=== PATIENT | male | born 1960 | race Caucasian/White ===

== ENCOUNTER 2016-05-01 11:43 | Inpatient (IN) | payer OTHER ==
[~2016-05-01] VITALS: Ht 180.3 cm; Wt 115.0 kg
[~2016-05-01 11:43] MED LIST: ALBUAER19 INH; ASPEC81 PO; BUPR-83 PO; BUSP30TA2 PO; CLON1TAB3 PO; CLR10 PO; DIVA250T PO; DIVA500T3 PO; DIVA500T59 PO; FLUT1SPR12 NAE; FRS/40 PO; GDN/80 PO; LEVO175T3 PO; LISI-461 PO; LOXA50CA PO; MAGN400T6 PO; MONT1TAB5 PO; OMEP20CA9 PO; POTA20TA16 PO; PRAV20TA PO; PSYL1POW4 PO; ZIPR1CAP4 PO; ZNTT/150 PO; [UNRECOGNIZED DRUG - CODE] PO
[2016-05-01] MEDS ORDERED: NALOXONE HCL 0.4 MG/1 ML VIAL/CARP ONE (12:17)
[2016-05-01] MEDS ORDERED: NALOXONE HCL 0.4 MG/1 ML VIAL/CARP IV STA (12:17)
--- NOTE | 2016-05-01 12:20 | EMERGENCY ROOM VISIT NOTE ---
History Report prepared by Beny: Fazal Griggs Under the Supervision of: Dr. Yohannes Contreras D.O. First contact with patient: 11:52 Chief Complaint: SWELLING TO EXTREMITY Stated Complaint: SWELLING TO LEFT FOOT History of Present Illness The patient is a 56 year old male who presents to the Emergency Room with complaints of persistent slurred speech that started prior to arrival today. Per the nursing staff, the patient was at [address] for a follow up for his pneumonia that he was diagnosed with in the hospital recently. The patient then came to triage from [address]. He has swelling to his legs and feet that the patient claims is normal. The reason the patient was told to come here was because the patient is really white and has slurred speech. He was slumped over when coming back to the ED room in a wheelchair, per the nursing staff. Per the patient, he has not been taking any new medications. He denies any chest pain, shortness of breath, or headache. The nursing staff denies that the patient has any fevers. The patient says he has no heart problems. Source of History: patient, nursing staff Onset: Prior to arrival today Position: other (global - slurred speech) Timing: other (persistent) Associated Symptoms: No SOB, No chest pain, No fevers, No headache Note: White skin. Chronic swelling to legs and feet. Review of Systems See HPI for pertinent positives & negatives. A total of 10 systems reviewed and were otherwise negative. Past Medical & Surgical Medical Problems: (1) Altered mental status (2) Asthma (3) Benign hypertension (4) Bilateral lower extremity edema (5) Bipolar disorder (6) Community acquired pneumonia (7) Diabetes (8) Gastroesophageal reflux disease (9) Hypoglycemia (10) Hyponatremia (11) Hypothyroidism (12) Hypoxia (13) Insomnia (14) Knee pain (15) Lymphedema of both lower extremities (16) Pneumonia (17) Pneumonia (18) Rib pain on left side (19) Schizophrenia (20) Sepsis (21) Sepsis (22) SOB (shortness of breath) (23) Soft tissue disorder (24) Unable to void (25) Weakness Family History Diabetes mellitus Gallbladder disease Hypertension Social History Smoking Status: Never Smoker Alcohol Use: none Drug Use: none Marital Status: single Housing Status: lives alone Occupation Status: unemployed Current/Historical Medications Scheduled Aspirin (Aspirin EC Low Dose), 81 MG PO DAILY Bupropion Hcl (Bupropion Hcl Xl), 1 TAB PO QAM Buspirone Hcl (Buspirone Hcl), 30 MG PO BID Clonazepam (Klonopin), 1 MG PO QDL Clonazepam (Klonopin), 2 TAB PO HS Divalproex Sodium (Depakote Er), 250 MG PO HS Divalproex Sodium (Depakote Er), 2,000 MG PO UD Divalproex Sodium (Depakote Er), 1,500 MG PO UD Divalproex Sodium (Divalproex Sodium ER), 1,750 MG PO HS Furosemide (Lasix), 40 MG PO DAILY Levothyroxine Sodium (Levothyroxine Sodium), 175 MCG PO DAILY Lisinopril (Zestril), 10 MG PO DAILY Loratadine (Claritin), 10 MG PO DAILY Loxapine Succinate (Loxapine Succinate), 150 MG PO HS Magnesium Oxide (Mag-Ox), 400 MG PO DAILY Montelukast Sodium (Montelukast Sodium), 10 MG PO HS Omeprazole (Prilosec), 20 MG PO DAILY Potassium Ext Rel (Klor-Con), 40 MEQ PO DAILY Pravastatin (Pravachol ), 20 MG PO HS Ranitidine (Zantac), 150 MG PO BID Ziprasidone Hcl (Geodon), 80 MG PO QAM Ziprasidone Hcl (Geodon), 160 MG PO HS Scheduled PRN Albuterol Inhaler (Ventolin Inhaler), 2 PUFFS INH QID PRN for asthma Fluticasone Propionate (Nasal) (Flonase Allergy Relief ), NA DAILY PRN for Nasal Congestion Polyethylene Glycol 3350 (Miralax), 17 GM PO DAILY PRN for Constipation Allergies Coded Allergies: No Known Allergies (Verified , 05/01/16) Physical Exam Vital Signs Date Time Temp Pulse Resp B/P Pulse Ox O2 Delivery O2 Flow Rate FiO2 05/01/16 15:30 97 25 121/77 97 Nasal Cannula 5.0 05/01/16 14:30 96 23 100 Nasal Cannula 5.0 05/01/16 14:28 114/71 05/01/16 14:04 98 05/01/16 14:00 99 26 99 Non-Rebreather 10.0 05/01/16 13:59 108/76 1/3/17 13:00 95 18 140/87 100 Non-Rebreather 15.0 05/01/16 12:27 82 21 115/70 100 Non-Rebreather 15.0 05/01/16 12:22 81 14 121/81 100 Non-Rebreather 15.0 05/01/16 12:17 64 Non-Rebreather 15.0 05/01/16 12:11 Room Air 05/01/16 12:11 82 12 96/59 92 Room Air 05/01/16 11:47 37.0 93 18 124/68 89 Room Air Physical Exam GENERAL: Patient is listless but arouses to verbal stimuli. Falls asleep quickly when not being stimulated. EYES: Pupils were constricted but reactive bilaterally. EARS, NOSE, MOUTH AND THROAT: Mucous membranes are moist, perioral cyanosis noted. NECK: The neck is nontender and supple. RESPIRATORY: Shallow respirations bilaterally. No rales, rhonchi, or wheezing noted. CARDIOVASCULAR: Regular rate and rhythm noted there no murmurs rubs or gallops normal S1 normal S2 GASTROINTESTINAL: The abdomen is soft. Bowel sounds are present in all quadrants. Abdomen is nontender MUSCULOSKELETAL/EXTREMITIES: There is no evidence of gross deformity full range of motion is noted in the hips and shoulders SKIN: Bilateral pedal edema up to knees. NEUROLOGIC: Patient is oriented to person, place, and time. Strength diminished but symmetric. Unable to hold either leg off of bed for greater than 5 seconds. Medical Decision & Procedures ER Provider Diagnostic Interpretation: X ray results and stated below per my interpretation and radiology interpretation. Other radiology results per my review and radiologist interpretation: HEAD CT NONCONTRAST CT DOSE: 1068.94 mGy.cm HISTORY: Change in mental status altered MS TECHNIQUE: Multiaxial CT images of the head were performed without the use of intravenous contrast. Comparison: None. Findings: The paranasal sinuses and mastoid air cells are clear. The calvarium and skull base are intact. The ventricles and sulci are within normal limits. There is no mass, hematoma, midline shift, or acute infarct. Impression: No acute intracranial abnormality. Electronically signed by: Jean Marie Prather M.D. 05/01/2016 1:36 PM CHEST ONE VIEW PORTABLE CLINICAL HISTORY: Sepsis dyspnea COMPARISON STUDY: 03/27/2016 FINDINGS: Progressive bilateral parenchymal infiltrative change. Tortuous thoracic aorta. Slight blunting left lateral costophrenic angle. IMPRESSION: Progressive bilateral parenchymal infiltrative change, possibly combined with underlying component of congestive failure Electronically signed by: Jean Marie Prather M.D. 05/01/2016 1:51 PM Laboratory Results 05/01/16 12:04 Red Blood Count 4.73, Mean Corpuscular Volume 91.3, Mean Corpuscular Hemoglobin 31.5, Mean Corpuscular Hemoglobin Concent 34.5, Mean Platelet Volume 8.5, Neutrophils (%) (Auto) 70.4, Lymphocytes (%) (Auto) 24.6, Monocytes (%) (Auto) 3.7, Eosinophils (%) (Auto) 1.0, Basophils (%) (Auto) 0.1, Neutrophils # (Auto) 6.08, Lymphocytes # (Auto) 2.13, Monocytes # (Auto) 0.32, Eosinophils # (Auto) 0.09, Basophils # (Auto) 0.01 05/01/16 12:30 Test 05/01/16 12:04 05/01/16 12:25 05/01/16 12:30 05/01/16 12:35 White Blood Count 8.65 K/uL (4.8-10.8) Red Blood Count 4.73 M/uL (4.7-6.1) Hemoglobin 14.9 g/dL (14.0-18.0) Hematocrit 43.2 % (42-52) Mean Corpuscular Volume 91.3 fL (80-100) Mean Corpuscular Hemoglobin 31.5 pg (25-34) Mean Corpuscular Hemoglobin Concent 34.5 g/dl (32-36) Platelet Count 164 K/uL (130-400) Mean Platelet Volume 8.5 fL (7.4-10.4) Neutrophils (%) (Auto) 70.4 % Lymphocytes (%) (Auto) 24.6 % Monocytes (%) (Auto) 3.7 % Eosinophils (%) (Auto) 1.0 % Basophils (%) (Auto) 0.1 % Neutrophils # (Auto) 6.08 K/uL (1.4-6.5) Lymphocytes # (Auto) 2.13 K/uL (1.2-3.4) Monocytes # (Auto) 0.32 K/uL (0.11-0.59) Eosinophils # (Auto) 0.09 K/uL (0-0.5) Basophils # (Auto) 0.01 K/uL (0-0.2) RDW Standard Deviation 44.0 fL (36.4-46.3) RDW Coefficient of Variation 13.2 % (11.5-14.5) Immature Granulocyte % (Auto) 0.2 % Immature Granulocyte # (Auto) 0.02 K/uL (0.00-0.02) Erythrocyte Sedimentation Rate 2 mm/hr (0-14) Prothrombin Time 10.7 SECONDS (9.0-12.0) Prothromb Time International Ratio 1.0 (0.9-1.1) Activated Partial Thromboplast Time 27.8 SECONDS (21.0-31.0) Partial Thromboplastin Ratio 1.1 D-Dimer 290 ug/L FEU (0-500) Salicylates Level < 1.7 mg/dl (2.8-20) Acetaminophen Level < 2 ug/ml (10-30) Valproic Acid (Depakene) Level 85 mcg/ml (50-100) Bedside Glucose 89 mg/dl (70-99) Estimated GFR () 69.7 Estimated GFR (Non- 60.1 BUN/Creatinine Ratio 11.2 (10-20) Calcium Level 9.2 mg/dl (8.5-10.1) Phosphorus Level 3.5 mg/dl (2.5-4.9) Magnesium Level 2.3 mg/dl (1.8-2.4) Total Bilirubin 0.3 mg/dl (0.2-1) Aspartate Amino Transf (AST/SGOT) 32 U/L (15-37) Alanine Aminotransferase (ALT/SGPT) 22 U/L (12-78) Alkaline Phosphatase 98 U/L (45-117) Ammonia 26.0 umol/L (11-32) Total Creatine Kinase 409 U/L (39-308) Creatine Kinase MB 18.6 ng/ml (0.5-3.6) Creatine Kinase MB Ratio 4.5 (0-3.0) Troponin I < 0.015 ng/ml (0-0.045) C-Reactive Protein < 0.29 mg/dl (0-0.29) Pro-B-Type Natriuretic Peptide 80 pg/ml (0-900) Total Protein 7.5 gm/dl (6.4-8.2) Albumin 4.1 gm/dl (3.4-5.0) Globulin 3.4 gm/dl (2.5-4.0) Albumin/Globulin Ratio 1.2 (0.9-2) Lipase 143 U/L (73-393) Thyroid Stimulating Hormone (TSH) 8.470 uIu/ml (0.300-4.500) Free Thyroxine 1.14 ng/dl (0.80-1.60) Bedside Lactic Acid Venous 0.86 mmol/L (0.90-1.70) Test 05/01/16 12:39 05/01/16 13:20 05/01/16 15:55 Bedside Hemoglobin 17.3 g/dl (14.0-18.0) Bedside Hematocrit 51 % (42-52) Bedside Sodium 133 mEq/L (135-144) Bedside Potassium 3.9 mEq/L (3.3-5.0) Bedside Chloride 93 mEq/L (101-112) Bedside Total CO2 26 mEq/l (24-31) Anion Gap 19.0 mmol/L (16-25) Bedside Blood Urea Nitrogen 16 mg/dl (7-18) Bedside Creatinine 1.2 mg/dl (0.6-1.3) Bedside Glucose (other) 84 mg/dl (70-99) Bedside Ionized Calcium (Raj) 1.20 mmol/l (1.12-1.32) Arterial Blood pH 7.38 (7.35-7.45) Arterial Blood Partial Pressure CO2 44 mmHg (35-46) Arterial Blood Partial Pressure O2 156 mm/Hg (80-95) Arterial Blood HCO3 26 mmol/L (19-24) Arterial Blood Oxygen Saturation 99.2 % (90-95) Arterial Blood Base Excess 0.1 mEq/L (-9-1.8) Arterial Blood Gas Delivery 15 LITERS Mario Test POSITIVE (POS) Ethyl Alcohol mg/dL < 3.0 mg/dl (0-3) Urine Color YELLOW Urine Appearance CLEAR (CLEAR) Urine pH 7.0 (4.5-7.5) Urine Specific [place] 1.008 (1.000-1.030) Urine Protein NEG (NEG) Urine Glucose (UA) NEG (NEG) Urine Ketones NEG (NEG) Urine Occult Blood NEG (NEG) Urine Nitrite NEG (NEG) Urine Bilirubin NEG (NEG) Urine Urobilinogen NEG (NEG) Urine Leukocyte Esterase NEG (NEG) Urine WBC (Auto) 0 /hpf (0-5) Urine RBC (Auto) 0-4 /hpf (0-4) Urine Hyaline Casts (Auto) 0 /lpf (0-5) Urine Epithelial Cells (Auto) 5-10 /lpf (0-5) Urine Bacteria (Auto) NEG (NEG) Urine Opiates Screen NEG (NEG) Urine Methadone, Qualitative NEG (NEG) Urine Barbiturates NEG (NEG) Urine Phencyclidine (PCP) Level NEG (NEG) Ur Amphetamine/Methamphetamine NEG (NEG) MDMA (Ecstasy) Screen POS (NEG) Urine Benzodiazepines Screen NEG (NEG) Urine Cocaine Metabolite NEG (NEG) Urine Marijuana (THC) NEG (NEG) Laboratory results per my review. Medications Administered Medications (Trade) Dose Ordered Sig/Daniel Route Start Time Stop Time Status Last Admin Dose Admin Naloxone HCl (Narcan Inj) 0.4 mg NOW STAT IV 05/01/16 12:17 05/01/16 12:18 DC 05/01/16 12:20 0.4 MG Levofloxacin (Levaquin / D5W) 750 mg NOW STAT IV 05/01/16 14:47 05/01/16 14:48 DC 05/01/16 15:44 750 MG ECG Indication: altered mental status Rate (beats per minute): 84 Rhythm: normal sinus Findings: no ectopy, other (no acute ST segment abnormalities, LVH noted by voltage criteria) Change: no significant change (from Sep 10 2004) ED Course 1209: The patient was evaluated in room C9. A complete history and physical examination were performed. 1217: Ordered Narcan Inj 0.4 mg IV. 1222: I reevaluated the patient and Narcan helped a bit. He started talking. 1447: Ordered Levaquin / D5W 750 mg IV. 1520: I reevaluated the patient and he is resting comfortably. The patient verbally expressed agreement and understanding of the treatment plan. The patient will be evaluated for further treatment. 1550: I discussed the patient with Dr. [place]ton - [facility] nozzleman - he will evaluate the patient for further treatment. Medical Decision Additional history obtained from nursing staff.. Differential diagnosis: Etiologies such as metabolic, infection, hypoglycemia, electrolyte abnormalities , cardiac sources, intracerebral event, toxicologic, neurologic, as well as others were entertained. The patient is a 56-year-old male who was sent to the emergency department from his primary care physician's office. The patient was found to have lower extreme swelling hypoxia and altered mental status. The patient was treated recently for pneumonia and appears to have pneumonia again. I'm unsure if this is the same infection but the patient's physical exam and vital signs would suggest this is an acute infection. The patient was treated with Narcan initially with only a minimal improvement in his symptoms. I discussed the patient's laboratory radiographic studies with him. He was also treated with IV antibiotics. He was reevaluated multiple times. His condition continued to improve. I discussed his case with the on-call [facility] hospitalist group. They have agreed to evaluate the patient in the emergency apartment for further management and disposition. Consults Time Called: 1540 Consulting Physician: Dr. Mahin RICHARD nozzleman Returned Call: 1550 I discussed the patient with Dr. Mahin RICHARD nozzleman - he will evaluate the patient for further treatment. Impression Primary Impression: Pneumonia Additional Impressions: Hypoxia, Altered mental status Scribe Attestation The scribe's documentation has been prepared under my direction and personally reviewed by me in its entirety. I confirm that the note above accurately reflects all work, treatment, procedures, and medical decision making performed by me. Departure Information Dispostion Being Evaluated By Hospitalist Referrals Yohannes Carrillo M.D. (PCP) Patient Instructions A Signature Page, My [facility]
[2016-05-01 12:24] LABS: BASO % 0.1 %; BASO ABS # 0.01 K/uL (0-0.2); COMPLETE YES; HEMATOCRIT 43.2 % (42-52); IG% 0.2 %; LYMPH % 24.6 %; LYMPH ABS # 2.13 K/uL (1.2-3.4); MEAN CELL VOLUME 91.3 fL (80-100); MEAN CORPUSCULAR HEMOGLOBIN 31.5 pg (25-34); MEAN CORPUSCULAR HGB CONC 34.5 g/dl (32-36); MEAN PLATELET VOLUME 8.5 fL (7.4-10.4); MONO % 3.7 %; NEUT % 70.4 %; PLATELET COUNT 164 K/uL (130-400); RED BLOOD COUNT 4.73 M/uL (4.7-6.1); WHITE BLOOD COUNT 8.65 K/uL (4.8-10.8)
[2016-05-01 12:38] LABS: PARTIAL THROMBOPLASTIN RATIO 1.1; PROTHROMBIN TIME (PATIENT) 10.7 SECONDS (9.0-12.0)
[2016-05-01 12:53] LABS: ACETAMINOPHEN < 2 ug/ml (10-30)
[2016-05-01 12:53] LABS: ISTAT CREATININE 1.2 mg/dl (0.6-1.3); ISTAT HEMOGLOBIN 17.3 g/dl (14.0-18.0); ISTAT IONIZED CALCIUM 1.2 mmol/l (1.12-1.32)
[2016-05-01 13:06] LABS: ALT/SGPT 22 U/L (12-78); BLOOD UREA NITROGEN 15 mg/dl (7-18); BUN/CREATININE RATIO 11.2 (10-20); C-REACTIVE PROTEIN < 0.29 mg/dl (0-0.29); CALCIUM 9.2 mg/dl (8.5-10.1); CARBON DIOXIDE 27 mmol/L (21-32); CHLORIDE 96 mmol/L (98-107); GLUCOSE 82 mg/dl (70-99); MAGNESIUM 2.3 mg/dl (1.8-2.4); POTASSIUM 3.9 mmol/L (3.5-5.1); SODIUM 133 mmol/L (136-145)
[2016-05-01 13:09] LABS: ALB/GLOB RATIO 1.2 (0.9-2); ALKALINE PHOSPHATASE 98 U/L (45-117); AST/SGOT 32 U/L (15-37); CKMB/CK RATIO 4.5 (0-3.0); PHOSPHORUS 3.5 mg/dl (2.5-4.9)
[2016-05-01 13:23] LABS: THYROID STIMULATING HORMONE 8.47 uIu/ml (0.300-4.500)
--- NOTE | 2016-05-01 13:38 | DIAGNOSTIC IMAGING REPORT ---
HEAD CT NONCONTRAST CT DOSE: 1068.94 mGy.cm HISTORY: Change in mental status altered MS TECHNIQUE: Multiaxial CT images of the head were performed without the use of intravenous contrast. Comparison: None. Findings: The paranasal sinuses and mastoid air cells are clear. The calvarium and skull base are intact. The ventricles and sulci are within normal limits. There is no mass, hematoma, midline shift, or acute infarct. Impression: No acute intracranial abnormality. Electronically signed by: Jean Marie Prather M.D. 05/01/2016 1:36 PM
[2016-05-01 13:42] LABS: ARTERIAL BLD GAS O2 SATURATION 99.2 % (90-95); ARTERIAL BLOOD GAS BASE EXCESS 0.1 mEq/L (-9-1.8); ARTERIAL BLOOD GAS HCO3 26 mmol/L (19-24); ARTERIAL BLOOD GAS PO2 156 mm/Hg (80-95); ARTERIAL BLOOD GAS pH 7.38 (7.35-7.45)
[2016-05-01 13:48] LABS: O2 ADMINISTRATION 15 LITERS
[2016-05-01 13:49] LABS: ALLEN TEST POSITIVE (POS)
--- NOTE | 2016-05-01 13:52 | DIAGNOSTIC IMAGING REPORT ---
CHEST ONE VIEW PORTABLE CLINICAL HISTORY: Sepsis dyspnea COMPARISON STUDY: 03/27/2016 FINDINGS: Progressive bilateral parenchymal infiltrative change. Tortuous thoracic aorta. Slight blunting left lateral costophrenic angle. IMPRESSION: Progressive bilateral parenchymal infiltrative change, possibly combined with underlying component of congestive failure Electronically signed by: Jean Marie Prather M.D. 05/01/2016 1:51 PM
[2016-05-01] MEDS ORDERED: LEVAQUIN 750MG / 150ML D5W IV STA (14:47)
[2016-05-01] MEDS ORDERED: POLY335019 PO (15:11)
[2016-05-01] MEDS: ALBUT/IPRATROP 3MG/0.5MG NEB 3 ML VIAL INH SCH ×2 (16:00→21:03)
[2016-05-01] MEDS ORDERED: KETOROLAC TROMETHAMINE 30 MG/ML VIAL IV. PRN (16:15)
[2016-05-01] MEDS ORDERED: FLUTICASONE PROPIONATE NA SPR 16 GM BTL PRN (16:15)
[2016-05-01] MEDS ORDERED: KETOROLAC TROMETHAMINE 15 MG/ML VIAL IV. PRN (16:15)
[2016-05-01] MEDS ORDERED: ACETAMINOPHEN 325 MG TAB PO PRN (16:15)
[2016-05-01 16:19] LABS: URINE APPEARANCE CLEAR (CLEAR); URINE BILIRUBIN NEG (NEG); URINE COLOR YELLOW; URINE NITRITE NEG (NEG); URINE SPECIFIC GRAVITY 1.008 (1.000-1.030); UROBILINOGEN NEG (NEG); ZZURINE CULT IF INDIC CATH NO
[2016-05-01 16:25] LABS: MANUAL MICROSCOPIC REQUIRED? NO; REVIEW REQ? NO
[2016-05-01 16:34] LABS: BENZODIAZEPINE, URINE NEG (NEG); COCAINE,URINE NEG (NEG); PHENCYCLIDINE, URINE NEG (NEG)
[2016-05-01] MEDS ORDERED: DEXTROSE 50% 50 ML SYR IV PRN (17:45)
[2016-05-01] MEDS ORDERED: GLUCAGON FOR INJ 1 MG VIAL SQ PRN (17:45)
[2016-05-01] MEDS ORDERED: GLUCOSE 10 TABS/TUBE PO PRN (17:45)
[2016-05-01] MEDS ORDERED: BUPR150T5 PO (17:49)
[2016-05-01] MEDS ORDERED: DPKSR500 PO (17:49)
[2016-05-01] MEDS: LOXAPINE~ORDER AWAITING ACTION SCH (18:00)
[2016-05-01 18:23] VITALS: BP 132/79; PULSE 102; TEMP 36.6; O2SAT 94
[2016-05-01 18:24] VITALS: O2SAT 94; BMI 34.4
[2016-05-01] MEDS ORDERED: LOXAPINE SUCCINATE 25 MG CAP PO SCH (21:00)
[2016-05-01] MEDS: INSULIN ASPART 100 UNITS/ML 3 ML PEN SC SCH (21:00)
--- NOTE | 2016-05-01 21:03 | History and Physical ---
History & Physical H&P dictated # [id number].
[2016-05-01 21:04] VITALS: PULSE 95; O2SAT 94
[2016-05-01] MEDS: BusPIRone 15 MG TAB PO SCH (21:41)
[2016-05-01] MEDS: DIVALPROEX 500 MG EXTENDED RELEASE TAB PO SCH (21:41)
[2016-05-01] MEDS: DIVALPROEX 250 MG EXTENDED REL TAB PO SCH (21:42)
[2016-05-01] MEDS: PRAVASTATIN SOD 20 MG TAB PO SCH (21:43)
[2016-05-01] MEDS: ZIPRASIDONE 80 MG CAP PO SCH (21:45)
[2016-05-01] MEDS: ENOXAPARIN 40 MG/0.4 ML SYR SQ SCH (21:46)
[2016-05-01] MEDS: MONTELUKAST SOD 10 MG TAB PO SCH (21:47)
[2016-05-01] MEDS: RANITIDINE HCL 150 MG TAB PO SCH (21:47)
--- NOTE | 2016-05-01 22:04 | HISTORY & PHYSICAL EXAMINATION ---
DATE OF ADMISSION: 05/01/2016 CHIEF COMPLAINT: Altered mental status. HISTORY OF PRESENT ILLNESS: This 56-year-old male patient actually came to the Emergency Department because he was seen in an outpatient office and felt that his chronic lymphedema in his lower extremities had worsened. While being seen at our Emergency Department he was exhibiting slurred speech and appeared pale, which appeared to be an alteration of his mental status. He was further evaluated and found to have pneumonia with hypoxemia and initial pulse ox of 89% on room air. PAST MEDICAL HISTORY: Significant for; asthma, bipolar disorder, type 2 diabetes mellitus, GERD, hyperlipidemia, hypertension, hypothyroidism, chronic bilateral lower extremity lymphedema, degenerative joint disease of the knees bilaterally and schizophrenia. PAST SURGICAL HISTORY: Include left knee ligament surgery at age 16. FAMILY HISTORY: Consistent with hypertension, gallbladder disease and diabetes. SOCIAL HISTORY: He never smoked. He does not use alcohol or illicit substances. He is single, lives independently, is unemployed, on disability. REVIEW OF SYSTEMS: A complete 10-system review was performed and all were negative except what I have placed in the HPI. CURRENT MEDICATIONS: Include; aspirin 81 mg daily, buspirone 30 mg b.i.d., Klonopin 1 mg as needed and 2 mg at bedtime, Depakote extended release 2000 mg when he awakens and 1750 mg when he goes to sleep, furosemide 40 mg daily, levothyroxine 175 mcg daily, lisinopril 10 mg daily, Claritin 10 mg daily, loxapine succinate 150 mg at bedtime, mag oxide 400 mg daily, montelukast sodium 10 mg at bedtime, Prilosec 20 mg daily, Klor-Con 40 mEq daily, Pravachol 20 mg at bedtime, Zantac 150 mg b.i.d., Geodon 80 mg in the morning and Geodon 160 mg at bedtime, albuterol inhaler 2 puffs q.i.d. p.r.n. asthma, Flonase nasal spray as needed and MiraLax as needed for constipation. ALLERGIES: He reports no known drug allergies. PHYSICAL EXAMINATION: VITAL SIGNS: Temperature is 37.0, pulse of 93, respirations 18, blood pressure 124/68. As I mentioned above, pulse ox was 89% on room air. GENERAL: The patient is a bit more arousable than what the exam reads in the ED note. He was able to stay awake and converse with me. HEENT: TMs were intact, no inflammation. Extraocular muscles were intact. Pupils are equal, round and reactive to light and accommodation. His mucous membranes were moist. Throat was clear. NECK: No JVD or lymphadenopathy. LUNGS: Show some rhonchi sounds bilaterally. No crackles. Mild expiratory wheezing. HEART: Regular, normal S1, S2, without murmurs, rubs or gallops. ABDOMEN: Soft, nontender, nondistended, positive bowel sounds. EXTREMITIES: No clubbing or cyanosis. He does have impressive lymphedema in his bilateral lower extremities, especially below the knees. NEUROLOGIC: Cranial nerves II-XII are grossly intact and nonfocal. SKIN: Warm and dry without rash. No signs of cellulitis. PSYCHIATRIC: The patient was pleasant and cooperative. IMAGING: CAT scan of the head showed no acute intracranial abnormality. Chest x-ray showed progressive bilateral parenchymal infiltrative change, possibly combined with underlying component of congestive failure. LABORATORY DATA: White count 8.65, hemoglobin 14.9, hematocrit 43.2, platelet count 164,000. Arterial blood gas showed a pH of 7.38, pCO2 of 44, PaO2 of 156 and that is why he was on 15 liters. Sodium 133, potassium 3.9, chloride 96, CO2 27, BUN 15, creatinine 1.3. TSH was elevated at 8.47. Lipase 143. His BNP was 80, lactic acid 0.86. Urinalysis was unremarkable. His urine drug screen was entirely negative except interestingly showed positive for MDMA Ecstasy; that seems very unlikely, there are confirmatory studies pending. Ethyl alcohol was less than 3.0. ASSESSMENT: Transient altered mental status with infiltrative change in bilateral lungs. We are going to treat him for pneumonia, but ask for an evaluation by pulmonology. In regards to his psychiatric diagnoses his home medications are continued. He is a diabetic, but refuses a diabetic diet, requests regular diet and in fact has not been treating that because his metformin had been held, apparently the last time that he was hospitalized, he had significant concerns of hypoglycemia; so he was just given an insulin sliding scale for any highs in order to accommodate the patient with a regular diet. He was treated with levofloxacin 750 mg IV q. 24. DVT prophylaxis in the form of Lovenox and SCDs. We will follow his laboratory data. Given quinolone and combination with Geodon, pharmacist and I discussed the possibility of prolongation of QT interval, so to evaluate this he is having an EKG performed on the day of admission and then one in the afternoon the following day to see if there has been any change. I do note that he was on the same antibiotic on a previous admission and did not have any issues.
[2016-05-01 23:10] VITALS: BP 125/85; PULSE 98; TEMP 36.6; O2SAT 96
[2016-05-02] VITALS (8 sets, daily range): BP systolic 112–125; BP diastolic 63–80; PULSE 67–112; TEMP 36.2–36.6; O2SAT 90–98; BMI 35.4
[2016-05-02] MEDS ORDERED: CLONAZEPAM 0.5 MG TAB PO STA (01:54)
[2016-05-02] MEDS: GLUCOSE 40% GEL 15 GM TUBE PO PRN (05:32)
[2016-05-02] MEDS: LEVOTHYROXINE 175 MCG TAB PO SCH (05:36)
[2016-05-02] MEDS ORDERED: PNEUMOCOCCAL POLYSACCHARIDES 25 MCG/0.5 ML VIAL/SYR IM. ONE (08:00)
[2016-05-02] MEDS: ALBUT/IPRATROP 3MG/0.5MG NEB 3 ML VIAL INH SCH ×4 (08:00→20:52)
[2016-05-02] MEDS: INSULIN ASPART 100 UNITS/ML 3 ML PEN SC SCH ×4 (08:00→21:00)
[2016-05-02] MEDS ORDERED: PNEUMOCOCCAL ADMINISTRATION CHARGE ONE (08:00)
[2016-05-02 08:02] LABS: BASO % 0.1 %; BASO ABS # 0.01 K/uL (0-0.2); COMPLETE YES; EOS % 0.4 %; HEMATOCRIT 39.2 % (42-52); IG% 0.3 %; LYMPH % 12.2 %; LYMPH ABS # 2.08 K/uL (1.2-3.4); MEAN CELL VOLUME 91.6 fL (80-100); MEAN CORPUSCULAR HEMOGLOBIN 31.3 pg (25-34); MEAN CORPUSCULAR HGB CONC 34.2 g/dl (32-36); MEAN PLATELET VOLUME 8.7 fL (7.4-10.4); PLATELET COUNT 151 K/uL (130-400); RED BLOOD COUNT 4.28 M/uL (4.7-6.1); WHITE BLOOD COUNT 17.08 K/uL (4.8-10.8)
[2016-05-02 08:33] LABS: BUN/CREATININE RATIO 8.8 (10-20); CREATININE 1.2 mg/dl (0.60-1.40); POTASSIUM 4.4 mmol/L (3.5-5.1)
[2016-05-02] MEDS: POTASSIUM CHLORIDE 20 MEQ TABCR PO SCH (09:17)
[2016-05-02] MEDS: RANITIDINE HCL 150 MG TAB PO SCH ×2 (09:17→21:14)
[2016-05-02] MEDS: BusPIRone 15 MG TAB PO SCH ×2 (09:17→21:15)
[2016-05-02] MEDS: ZIPRASIDONE 80 MG CAP PO SCH ×2 (09:17→21:14)
[2016-05-02] MEDS: PANTOprazole SOD 40 MG TAB PO SCH (09:17)
[2016-05-02] MEDS: LORATADINE 10 MG TAB PO SCH (09:17)
[2016-05-02] MEDS: ASPIRIN 81 MG ECTAB PO SCH (09:18)
[2016-05-02] MEDS: LISINOPRIL 10 MG TAB PO SCH (09:18)
[2016-05-02] MEDS: MAGNESIUM OXIDE 400 MG TAB PO SCH (09:18)
[2016-05-02] MEDS: FUROSEMIDE 40 MG TAB PO SCH (09:18)
[2016-05-02] MEDS: DIVALPROEX 500 MG EXTENDED RELEASE TAB PO SCH ×2 (09:18→21:15)
[2016-05-02] MEDS: BuPROPion XL 150 MG TABCR PO SCH (09:36)
--- NOTE | 2016-05-02 13:30 | Hospitalist Progress Note ---
Hospitalist Progress Note Date of Service May 02, 2016. Subjective Pt evaluation today including: conversation w/ patient, physical exam, chart review, lab review, review of studies, review of inpatient medication list Patient reports feeling, "GREAT" today. He declines having SOB, CP, nausea, diarrhea or F/C. He requests miralax as he takes at home for constipation. Also, he uses Clonazepam at bedtime to help with sleep. He already requests to be discharged tomorrow evening if he is medically stable. Additional Comments: A 10 system review was performed and all were negative. Positives were placed in the subjective section. Objective Vital Signs Date Time Temp Pulse Resp B/P Pulse Ox O2 Delivery O2 Flow Rate FiO2 05/02/16 11:12 90 16 94 Room Air 05/02/16 08:12 Room Air 05/02/16 08:00 97 16 95 Room Air 05/02/16 07:59 36.6 97 18 125/80 94 Room Air 05/02/16 07:53 36.6 67 16 112/67 93 2.0 05/02/16 00:17 Nasal Cannula 2.0 05/01/16 23:10 36.6 98 20 125/85 96 Nasal Cannula 2.0 05/01/16 21:04 95 14 94 Nasal Cannula 2.0 05/01/16 18:24 94 Room Air 05/01/16 18:23 36.6 102 18 132/79 94 Room Air 05/01/16 16:43 107 20 131/85 94 Nasal Cannula 2.0 05/01/16 15:30 97 25 121/77 97 Nasal Cannula 5.0 05/01/16 14:30 96 23 100 Nasal Cannula 5.0 05/01/16 14:28 114/71 05/01/16 14:04 98 05/01/16 14:00 99 26 99 Non-Rebreather 10.0 05/01/16 13:59 108/76 Physical Exam Notes: GEN: Awake, alert, and oriented x 3. Not in acute distress HEENT: Tm's intact, no inflammation, EOMI, PERRLA, MMM Neck: Soft, supple Lungs: Scattered rhonchi in both lung savage. No wheezes. No crackles. Heart: REG, nrl S1S2 without murmurs, rubs or gallops Abdomen: Soft, NT, ND, + BS EXT: No C/C No change in the chronic lymphedema of b/l lower extremities. NEURO: CN's II-XII grossly intact, non-focal Skin: warm, dry, no rashes PSYCH: pleasant, cooperative, no signs of agitation. Laboratory Results Last 24 Hours Test 05/01/16 13:20 05/01/16 15:55 05/01/16 21:05 05/02/16 05:04 Arterial Blood pH 7.38 Arterial Blood Partial Pressure CO2 44 mmHg Arterial Blood Partial Pressure O2 156 mm/Hg Arterial Blood HCO3 26 mmol/L Arterial Blood Oxygen Saturation 99.2 % Arterial Blood Base Excess 0.1 mEq/L Arterial Blood Gas Delivery 15 LITERS Mario Test POSITIVE Ethyl Alcohol mg/dL < 3.0 mg/dl Urine Color YELLOW Urine Appearance CLEAR Urine pH 7.0 Urine Specific [place] 1.008 Urine Protein NEG Urine Glucose (UA) NEG Urine Ketones NEG Urine Occult Blood NEG Urine Nitrite NEG Urine Bilirubin NEG Urine Urobilinogen NEG Urine Leukocyte Esterase NEG Urine WBC (Auto) 0 /hpf Urine RBC (Auto) 0-4 /hpf Urine Hyaline Casts (Auto) 0 /lpf Urine Epithelial Cells (Auto) 5-10 /lpf Urine Bacteria (Auto) NEG Urine Opiates Screen NEG Urine Methadone, Qualitative NEG Urine Barbiturates NEG Urine Phencyclidine (PCP) Level NEG Ur Amphetamine/Methamphetamine NEG MDMA (Ecstasy) Screen POS Urine Benzodiazepines Screen NEG Urine Cocaine Metabolite NEG Urine Marijuana (THC) NEG Bedside Glucose 111 mg/dl 48 mg/dl Test 05/02/16 05:30 05/02/16 05:59 05/02/16 06:27 05/02/16 07:21 Bedside Glucose 33 mg/dl 65 mg/dl 71 mg/dl White Blood Count 17.08 K/uL Red Blood Count 4.28 M/uL Hemoglobin 13.4 g/dL Hematocrit 39.2 % Mean Corpuscular Volume 91.6 fL Mean Corpuscular Hemoglobin 31.3 pg Mean Corpuscular Hemoglobin Concent 34.2 g/dl Platelet Count 151 K/uL Mean Platelet Volume 8.7 fL Neutrophils (%) (Auto) 82.0 % Lymphocytes (%) (Auto) 12.2 % Monocytes (%) (Auto) 5.0 % Eosinophils (%) (Auto) 0.4 % Basophils (%) (Auto) 0.1 % Neutrophils # (Auto) 14.02 K/uL Lymphocytes # (Auto) 2.08 K/uL Monocytes # (Auto) 0.85 K/uL Eosinophils # (Auto) 0.07 K/uL Basophils # (Auto) 0.01 K/uL RDW Standard Deviation 44.9 fL RDW Coefficient of Variation 13.5 % Immature Granulocyte % (Auto) 0.3 % Immature Granulocyte # (Auto) 0.05 K/uL Sodium Level 138 mmol/L Potassium Level 4.4 mmol/L Chloride Level 102 mmol/L Carbon Dioxide Level 25 mmol/L Anion Gap 11.0 mmol/L Blood Urea Nitrogen 11 mg/dl Creatinine 1.20 mg/dl Est Creatinine Clear Calc Drug Dose 86.5 ml/min Estimated GFR () 76.8 Estimated GFR (Non- 66.3 BUN/Creatinine Ratio 8.8 Random Glucose 143 mg/dl Calcium Level 9.0 mg/dl Test 05/02/16 07:57 05/02/16 11:39 Bedside Glucose 155 mg/dl 128 mg/dl Assessment and Plan 1) Pneumonia (resulting in transient altered mental status) - improving, mentation is back to baseline. Continue IV Levaquin. Switch to oral when discharged. 2) Lymphedema b/l lower extremities - chronic and stable. Takes lasix daily. 3) History of Type II DM - currently untreated and he is on regular diet, actually had a low sugar early this am. 4) HTN - stable 5) Degenerative joint disease of knee - currently using crutches to ambulate. Will have PT/OT evaluate for any increased needs due to deconditioning as he lives independently. 6) GERD - on PPI and H2 tera 7) Bipolar disorder/schizophrenia - on home psych meds and appears to be stable and pleasant. Certainly no oversedation noted today. DVT prophylaxis SCDs and Sub-q Lovenox. I feel if patient remains stable overnight tonight he could be discharged to home tomorrow afternoon.
--- NOTE | 2016-05-02 15:30 | PULMONARY CONSULTATION ---
DATE OF CONSULTATION: 05/02/2016 TIME: 2:45 p.m. HISTORY OF PRESENT ILLNESS: The patient was seen in room 382, bed 2. He is a 56-year-old male who is being seen because of possible pneumonia. The patient himself is not the best historian. He was referred to the Emergency Room yesterday. He had gone to visit his primary doctor, Dr. Carrillo. They apparently were concerned that he might have increased leg swelling, according to the patient. He was sent to the Emergency Room and was found to have some slurred speech. The patient tells me that he does not even remember going to the Emergency Room at that time. He himself does not notice any slurred speech. He underwent an evaluation. Part of that evaluation included a chest x-ray. The chest x-ray done yesterday showed what appeared to be some bilateral lung infiltrates. It appeared to me that the right lower lobe infiltrate was less than it had been on a prior x-ray from March 27. However, the left lower lobe infiltrate seen new. The patient does not complain of significant shortness of breath. He has a history of asthma since childhood. He only uses a rescue inhaler. He states his insurance would not pay for Advair that he used to take. He does not feel wheezy your tight. He has just a mild cough. There has been very little sputum production. He has not coughed up any blood. He is not having any chest pains. He has not had any chills, fevers or sweats. The patient states that his appetite is excellent. He denies any difficulty swallowing. The patient does have a history of bipolar disorder. He does seem to understand most of my questions. Sometimes, however, he will not answer the questions that I do ask him. Today, he states he feels much better. He feels essentially back to normal. As noted, the patient has a history of asthma. He had a prior hospitalization from March 27 until March 30. At that time, he had pneumonia with a considerable infiltrate in the right mid and lower lung field. That x-ray apparently had not been repeated until he came to the Emergency Room this time. He cannot recall much of the details of that hospital stay. PAST SURGICAL HISTORY: Left knee surgery x2 when he was a teenager. This was related to a basketball injury. PAST MEDICAL HISTORY: 1. Asthma as noted. 2. Chronic lymphedema of both lower extremities. 3. Bipolar disorder. 4. Diabetes type 2. 5. GERD. 6. Hyperlipidemia. 7. Hypertension. 8. Hypothyroidism. 9. Degenerative joint disease of the knees. 10. Schizophrenia. SOCIAL HISTORY: Tobacco never. ETOH -- history of alcoholism many years ago, but he has not had any alcohol for more than 20 years. FAMILY HISTORY: Father age 80, had bipolar disorder and COPD and he following gallbladder surgery. Mother living, age 92, alive and well. ALLERGIES: Denies any medication allergies. OCCUPATIONAL HISTORY: He has been on disability. PETS: None. MEDICATIONS: At home: 1. Ventolin inhaler 2 puffs p.r.n. 2. Aspirin 81 mg daily. 3. Bupropion 150 mg 1 tab in the morning. 4. Buspirone 30 mg b.i.d. 5. Clonazepam 1 mg daily and 2 mg at bedtime. 6. Depakote total 1750 mg at bedtime. 7. Fluticasone nasal spray p.r.n. 8. Furosemide 40 mg daily. 9. Levothyroxine 175 mcg daily. 10. Lisinopril 10 mg daily. 11. Loratadine 10 mg daily. 12. Loxapine 150 mg at bedtime. 13. Magnesium oxide 400 mg daily. 14. Montelukast 10 mg daily. 15. Omeprazole 20 mg daily. 16. MiraLax p.r.n. 17. Potassium 40 mEq daily. 18. Pravastatin 20 mg daily. 19. Ranitidine 150 mg b.i.d. 20. Ziprasidone 40 mg capsule, total 80 mg daily in the morning and 160 mg at bedtime. REVIEW OF SYSTEMS: Negative except for the above-mentioned complaints. The patient is not, however, the best historian. PHYSICAL EXAMINATION: GENERAL: The patient is a pleasant and talkative 56-year-old male who was cooperative, alert and oriented. He was in no distress. VITAL SIGNS: Temperature was 36.6. I did not find evidence of any fevers since admission. Heart rate was 90 per minute. Blood pressure was 125/80. Respiratory rate 16 breaths per minute. Oxygen saturation 90% on room air. HEENT: Pupils were reactive to light. Nares were clear. Mouth exam was negative. NECK: Palpation of the neck reveals no lymph nodes. BMI is moderately elevated at 35.4 kilograms per square cm. CHEST: Normal expansion and development. LUNGS: Savage revealed mild rales at both lung bases. No wheezes were heard. ABDOMEN: Soft. Bowel sounds were present. There was no tenderness to palpation. EXTREMITIES: Revealed +2 edema of both lower extremities from the knee on downward. IMAGING DATA: The patient's CAT scan of the head showed no acute abnormalities. LABORATORY DATA: CBC on admission showed a white count of 8.65, but today it was increased to 17.08. Hemoglobin was 14.9 on admission and today is 13.4. Platelets were 164,000. Differential yesterday showed 70% neutrophils and today 82%. INR was 1 and PTT was 27.8. D-dimer was 290. Urinalysis was unremarkable. Arterial blood gas showed a pH of 7.38 with a pCO2 of 44 and a pO2 of 156 on 15 liters of oxygen. 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 Electrolytes show sodium 138, potassium 4.4, chloride 102, bicarbonate 25 and that was done today. Drug screen was done. Valproic acid was 85. The MDMA screen was positive. The followup is pending. IMPRESSION: 1. Bilateral lower lung field infiltrate suggestive for pneumonia. 2. Consider aspiration in light of recurring infiltrates in the lower lung savage. 3. Leukocytosis -- worsened from admission. 4. Asthma by history. COMMENTS AND RECOMMENDATIONS: The patient appears to have recurring right lower lung field infiltrate and a new left lower lung field infiltrate. He has had episodes of hypoglycemia. One possibility could be aspirating at times of hypoglycemia. He did not have very many symptoms. He is not a good historian. Physical exam was only mildly abnormal. The patient feels dramatically better. I would recheck a CBC for tomorrow and make sure that the white count is not getting worse. The patient thinks he is going home tomorrow. Clinically, he looks well enough to go but if he has worsening of his white count, I would consider doing a CAT scan of the chest to further evaluate the infiltrates. If he does go home, he certainly should have a followup x-ray in 2-3 weeks to be sure that the infiltrates are clearing or have cleared. He currently is on Levaquin which he had received at the time of his prior infiltrate in February. The patient has asthma but is very stable. He uses nothing other than a rescue inhaler and some montelukast. Thank you very much for asking me to assist in his care. LAURA
[2016-05-02] MEDS ORDERED: LEVOFLOXACIN / D5W 750 MG in PREMIXED IN D5W 150 ML IV SCH (16:00)
[2016-05-02] MEDS: LOXAPINE~ORDER AWAITING ACTION SCH ×3 (16:36→16:37)
[2016-05-02] MEDS ORDERED: CLONAZEPAM 1 MG TAB PO SCH (21:00)
[2016-05-02] MEDS ORDERED: POLYETHYLENE (MIRALAX) 17 GM PACK PO SCH (21:00)
[2016-05-02] MEDS ORDERED: BISACODYL 5 MG TABEC PO SCH (21:00)
[2016-05-02] MEDS: ENOXAPARIN 40 MG/0.4 ML SYR SQ SCH (21:13)
[2016-05-02] MEDS: MONTELUKAST SOD 10 MG TAB PO SCH (21:14)
[2016-05-02] MEDS: PRAVASTATIN SOD 20 MG TAB PO SCH (21:15)
[2016-05-02] MEDS: DIVALPROEX 250 MG EXTENDED REL TAB PO SCH (21:16)
[2016-05-03] MEDS: LEVOTHYROXINE 175 MCG TAB PO SCH (05:34)
[2016-05-03 06:02] LABS: BASO % 0.1 %; BASO ABS # 0.01 K/uL (0-0.2); COMPLETE YES; EOS % 2.8 %; HEMATOCRIT 36.1 % (42-52); IG% 0.2 %; LYMPH % 19.9 %; LYMPH ABS # 1.89 K/uL (1.2-3.4); MEAN CELL VOLUME 92.8 fL (80-100); MEAN CORPUSCULAR HEMOGLOBIN 30.8 pg (25-34); MEAN CORPUSCULAR HGB CONC 33.2 g/dl (32-36); MEAN PLATELET VOLUME 8.7 fL (7.4-10.4); MONO % 6.8 %; NEUT % 70.2 %; PLATELET COUNT 153 K/uL (130-400); RED BLOOD COUNT 3.89 M/uL (4.7-6.1); WHITE BLOOD COUNT 9.48 K/uL (4.8-10.8)
[2016-05-03 06:29] LABS: CREATININE 1.1 mg/dl (0.60-1.40); POTASSIUM 4.1 mmol/L (3.5-5.1)
[2016-05-03] MEDS: LOXAPINE~ORDER AWAITING ACTION SCH ×2 (07:02)
[2016-05-03] MEDS: INSULIN ASPART 100 UNITS/ML 3 ML PEN SC SCH (07:11)
[2016-05-03] MEDS: ALBUT/IPRATROP 3MG/0.5MG NEB 3 ML VIAL INH SCH ×2 (07:45→11:07)
[2016-05-03 07:46] VITALS: PULSE 79; O2SAT 94
[2016-05-03 08:05] VITALS: BP 129/86; PULSE 82; TEMP 36.4; O2SAT 95
[2016-05-03] MEDS: GLUCOSE 40% GEL 15 GM TUBE PO PRN (08:45)
[2016-05-03] MEDS: BusPIRone 15 MG TAB PO SCH (09:57)
[2016-05-03] MEDS: LORATADINE 10 MG TAB PO SCH (09:57)
[2016-05-03] MEDS: DIVALPROEX 500 MG EXTENDED RELEASE TAB PO SCH (09:58)
[2016-05-03] MEDS: ASPIRIN 81 MG ECTAB PO SCH (09:58)
[2016-05-03] MEDS: ZIPRASIDONE 80 MG CAP PO SCH (09:58)
[2016-05-03] MEDS: POTASSIUM CHLORIDE 20 MEQ TABCR PO SCH (09:59)
[2016-05-03] MEDS: FUROSEMIDE 40 MG TAB PO SCH (09:59)
[2016-05-03] MEDS: MAGNESIUM OXIDE 400 MG TAB PO SCH (09:59)
[2016-05-03 10:00] VITALS: Ht 180.3 cm; Wt 115.0 kg
[2016-05-03] MEDS: LISINOPRIL 10 MG TAB PO SCH (10:00)
[2016-05-03] MEDS: BuPROPion XL 150 MG TABCR PO SCH (10:00)
[2016-05-03] MEDS: PANTOprazole SOD 40 MG TAB PO SCH (10:00)
[2016-05-03] MEDS: RANITIDINE HCL 150 MG TAB PO SCH (10:00)
[2016-05-03] MEDS ORDERED: LEVO1TAB35 PO ×2 (10:17→10:45)
--- NOTE | 2016-05-03 10:49 | Discharge Instructions ---
Discharge Instructions Admission Reason for Admission: Lymphedema Of Both Lower Extremities, Pneumonia Discharge Discharge Diagnosis / Problem: PNA, hypoglycemia Discharge Goals Goal(s): Decrease discomfort, Improve function, Increase independence, Improve disease control, Improve nutritional status, Learn about illness, Diagnostic testing, Therapeutic intervention, Prevent Disease Progression, Specific goals Activity Recommendations Activity Limitations: resume your previous activity Exercise/Sports Limitations: none May Resume Sexual Activity: when tolerated Shower/Bathe: no limitations . Instructions / Follow-Up Instructions / Follow-Up 1) Pneumonia (resulting in transient altered mental status) - improving, mentation is back to baseline. Continue IV Levaquin. Switch to oral when discharged. 2) Lymphedema b/l lower extremities - chronic and stable. Takes lasix daily. 3) History of Type II DM - currently untreated and he is on regular diet, actually had a low sugar early this am. 4) HTN - stable 5) Degenerative joint disease of knee - currently using crutches to ambulate. Will have PT/OT evaluate for any increased needs due to deconditioning as he lives independently. 6) GERD - on PPI and H2 tera 7) Bipolar disorder/schizophrenia - on home psych meds and appears to be stable and pleasant. Certainly no oversedation noted today. DVT prophylaxis SCDs and Sub-q Lovenox. I feel if patient remains stable overnight tonight he could be discharged to home tomorrow afternoon. Current Hospital Diet Patient's current hospital diet: Regular Diet, NEED REGULAR SNACKS WHNE FEEL BLOOD GLUCOSE IS LOW Discharge Diet Recommended Diet: Regular Diet Pending Studies Studies pending at discharge: yes List of pending studies: proinsulin, serum insulin, c- peptide, cortisol, all of this lab need to be follow up with pcp for the results Laboratory Results Meds Administered (Past 24Hrs) Medications (Trade) Dose Ordered Sig/Daniel Route Start Time Stop Time Status Last Admin Dose Admin Naloxone HCl (Narcan Inj) 0.4 mg NOW STAT IV 05/01/16 12:17 05/01/16 12:18 DC 05/01/16 12:20 0.4 MG Levofloxacin 750 mg 750 mg NOW STAT IV 05/01/16 14:47 05/01/16 14:48 DC 05/01/16 15:44 750 MG Levofloxacin/Prmx (Levaquin / D5W/ Premixed D5W) 150 ml @ 100 mls/hr DAILY@1600 IV 05/02/16 16:00 05/08/16 15:59 05/02/16 16:22 100 MLS/HR Albuterol/ Ipratropium (Duoneb) 3 ml QIDR INH 05/01/16 16:00 05/31/16 15:59 05/03/16 07:45 3 ML Aspirin (Ecotrin Tab) 81 mg DAILY PO 05/02/16 09:00 06/01/16 08:59 05/03/16 09:58 81 MG Divalproex Sodium (Depakote Extended Rel Tab) 1,500 mg HS PO 05/01/16 21:00 05/31/16 20:59 05/02/16 21:15 1,500 MG Fluticasone Propionate (Flonase Nasal [place]) 2 sprays DAILY PRN NA 05/01/16 16:15 05/31/16 16:14 05/03/16 04:43 2 SPRAYS Furosemide (Lasix tab) 40 mg DAILY PO 05/02/16 09:00 06/01/16 08:59 05/03/16 09:59 40 MG Levothyroxine Sodium (Synthroid Tab) 175 mcg DAILYBB PO 05/02/16 06:00 06/01/16 05:59 05/03/16 05:34 175 MCG Lisinopril (Zestril Tab) 10 mg DAILY PO 05/02/16 09:00 06/01/16 08:59 05/03/16 10:00 10 MG Loratadine (Claritin Tab) 10 mg DAILY PO 05/02/16 09:00 06/01/16 08:59 05/03/16 09:57 10 MG Magnesium Oxide (Mag-Ox Tab) 400 mg DAILY PO 05/02/16 09:00 06/01/16 08:59 05/03/16 09:59 400 MG Montelukast Sodium (Singulair Tab) 10 mg HS PO 05/01/16 21:00 05/31/16 20:59 05/02/16 21:14 10 MG Potassium Chloride (Klor-Con Tab) 40 meq DAILY PO 05/02/16 09:00 06/01/16 08:59 05/03/16 09:59 40 MEQ Pravastatin Sodium (Pravachol Tab) 20 mg HS PO 05/01/16 21:00 05/31/16 20:59 05/02/16 21:15 20 MG Ranitidine HCl (zANTac TAB) 150 mg BID PO 05/01/16 21:00 05/31/16 20:59 05/03/16 10:00 150 MG Ziprasidone (Geodon Cap) 160 mg HS PO 05/01/16 21:00 05/31/16 20:59 05/02/16 21:14 160 MG Buspirone HCl (BusPAR TAB) 30 mg BID PO 05/01/16 21:00 05/31/16 20:59 05/03/16 09:57 30 MG Pantoprazole Sodium (Protonix Tab) 40 mg QAM PO 05/02/16 09:00 06/01/16 08:59 05/03/16 10:00 40 MG Ziprasidone ([place] Cap) 80 mg QAM PO 05/02/16 09:00 06/01/16 08:59 05/03/16 09:58 80 MG Enoxaparin Sodium (Lovenox Inj) 40 mg Q24H SQ 05/01/16 21:00 05/31/16 20:59 05/02/16 21:13 40 MG Divalproex Sodium (Depakote Extended Rel Tab) 2,000 mg QAM PO 05/02/16 09:00 06/01/16 08:59 05/03/16 09:58 2,000 MG Glucose (Glucose 40% Gel) 15-30 GRAMS 15 GRAMS... UD PRN PO 05/01/16 17:45 05/31/16 17:44 05/03/16 08:45 30 GM Divalproex Sodium (Depakote Extended Rel Tab) 250 mg HS PO 05/01/16 21:00 05/31/16 20:59 05/02/16 21:16 250 MG Bupropion HCl (Wellbutrin-Xl Tab) 150 mg DAILY PO 05/02/16 09:00 06/01/16 08:59 05/03/16 10:00 150 MG Pneumococcal Polysaccharide Vaccine (Pneumovax-23 Inj) 25 mcg ONCE ONCE IM. 05/02/16 08:00 05/02/16 08:01 DC 05/03/16 10:05 25 MCG Clonazepam (Klonopin Tab) 2 mg HS PO 05/02/16 21:00 06/01/16 20:59 05/02/16 21:13 2 MG Bisacodyl (Dulcolax Tab) 5 mg HS PO 05/02/16 21:00 06/01/16 20:59 05/02/16 21:12 5 MG Hemoglobin A1c Test 03/28/16 06:12 Range/Units Estimated Average Glucose 108 mg/dl Hemoglobin A1c 5.4 4.5-5.6 % Medical Emergencies . Who to Call and When: Medical Emergencies: If at any time you feel your situation is an emergency, please call 911 immediately. . Non-Emergent Contact Non-Emergency issues call your: Primary Care Provider Call Non-Emergent contact if: you have a fever . . "Provider Documentation" section prepared by Guru Vaughn. VTE Core Measure Inpt VTE Proph given/why not?: Enoxaparin (Lovenox)SQ
[2016-05-03 11:07] VITALS: PULSE 95; O2SAT 97
[2016-05-03 11:26] VITALS: BP 129/86; PULSE 95; TEMP 36.4; O2SAT 97
--- NOTE | 2016-05-03 17:18 | Discharge Summary ---
Discharge Summary Admission Date: May 01, 2016 at 15:59 Discharge Date: May 03, 2016 Discharge Disposition: Home Principal Diagnosis: pneumonia Problems/Secondary Diagnoses: hypoglycemia Immunizations: Have You Had Influenza Vaccine: Yes Influenza Vaccine Date: Mar 03, 2013 History of Tetanus Vaccine?: UTD History of Pneumococcal: Yes Pneumococcal Date: Feb 28, 2008 History of Hepatitis B Vaccine: No Procedures: no Consultations: no Medication Reconciliation New Medications: Levofloxacin (Levaquin) 750 Mg Tab 750 MG PO DAILY, #7 TAB Continued Medications: Albuterol Inhaler (Ventolin Inhaler) Aers 2 PUFFS INH QID PRN for asthma, #5 INHALER Aspirin (Aspirin EC Low Dose) 81 Mg Ectab 81 MG PO DAILY Bupropion Hcl (Bupropion Hcl Xl) 150 Mg Tab 1 TAB PO QAM for 30 Days, #30 TAB 2 Refills Buspirone Hcl (Buspirone Hcl) 30 Mg Tab 30 MG PO BID Clonazepam (Klonopin) 1 Mg Tab 1 MG PO QDL Clonazepam (Klonopin) 1 Mg Tab 2 TAB PO HS, TAB Divalproex Sodium (Depakote Er) 250 Mg Tab 250 MG PO HS TAKE WITH 1500MG = 1750 MG HS Divalproex Sodium (Depakote Er) 500 Mg Tab 2000 MG PO UD, 2 Refills 4 TABLETS IN THE AFTERNOON Divalproex Sodium (Depakote Er) 500 Mg Tab 1500 MG PO UD, 2 Refills TAKE 3 TABLETS WITH DINNER Divalproex Sodium (Divalproex Sodium ER) 500 Mg Tabcr 1750 MG PO HS Fluticasone Propionate (Nasal) (Flonase Allergy Relief Ch) 50 Mcg/Act Spr NA DAILY PRN for Nasal Congestion Furosemide (Lasix) 40 Mg Tab 40 MG PO DAILY Levothyroxine Sodium (Levothyroxine Sodium) 175 Mcg Tab 175 MCG PO DAILY Lisinopril (Zestril) 10 Mg Tab 10 MG PO DAILY Loratadine (Claritin) 10 Mg Tab 10 MG PO DAILY, TAB Loxapine Succinate (Loxapine Succinate) 50 Mg Cap 150 MG PO HS Magnesium Oxide (Mag-Ox) 400 Mg Tab 400 MG PO DAILY Montelukast Sodium (Montelukast Sodium) 10 Mg Tab 10 MG PO HS, 3 Refills Omeprazole (Prilosec) 20 Mg Cap 20 MG PO DAILY, CAP Polyethylene Glycol 3350 (Miralax) 1 Pow Pow 17 GM PO DAILY PRN for Constipation, #255 GM Potassium Ext Rel (Klor-Con) 20 Meq Tabcr 40 MEQ PO DAILY, TAB Pravastatin (Pravachol ) 20 Mg Tab 20 MG PO HS, 0 Refills Ranitidine (Zantac) 150 Mg Tab 150 MG PO BID, 0 Refills Ziprasidone Hcl (Geodon) 40 Mg Cap 80 MG PO QAM, CAP Ziprasidone Hcl (Geodon) 80 Mg Cap 160 MG PO HS, CAP Discharge Exam Doing well, although bed to chair, conversational, no acute distress, no any complaint Review of Systems: Constitutional: No chills, No fatigue, No fever, No problem reported, No sweats, No weakness, No weight loss Eyes: No diplopia, No discharge, No eye pain, No problem reported, No redness, No worsening of vision ENT: No dental problems, No hearing loss, No nasal symptoms, No problem reported, No sore throat, No tinnitus, No trouble swallowing, No unusual epistaxis Respiratory: + cough Cardiovascular: No PND, No chest pain, No claudication, No edema, No orthopnea, No palpitations, No problem reported Abdomen: No GI bleeding, No constipation, No diarrhea, No nausea, No pain, No problem reported, No vomiting Musculoskeletal: No calf pain, No joint pain, No muscle pain, No problem reported, No swelling Genitourinary - Male: No dysuria, No hematuria, No impotence, No lesions, No penile discharge, No problem reported, No urinary frequency, No urinary hesitancy, No urinary incontinence, No urinary retention, No urinary urgency Neurologic: No balance problems, No memory loss, No numbness/tingling, No paralysis, No problem reported, No vertigo, No weakness Psychiatric: No anhedonism, No anxiety, No depression symptoms, No insomnia , No problem reported, No substance abuse Endocrine: No excessive thirst, No excessive urination, No fatigue, No problem reported Hematologic / Lymphatic: No abnormal bleeding/bruising, No clotting problems , No night sweats, No problem reported, No swollen lymph nodes Integumentary: No bleeding, No color change, No itch, No new/changing skin lesions, No problem reported, No rash Physical Exam: General Appearance: WD/WN, + obese Eyes: normal inspection, PERRL ENT: normal ENT inspection Neck: supple Respiratory/Chest: chest non-tender, no respiratory distress, no accessory muscle use, + decreased breath sounds Cardiovascular: regular rate, rhythm, + pertinent finding (1+ edema) Abdomen / GI: normal bowel sounds, non tender, soft Extremities: normal inspection, no calf tenderness Neurologic/Psychiatric: modeling manager II-XII nml as tested, no motor/sensory deficits , alert Skin: normal color, warm/dry Hospital Course 56-year-old was admitted because of pneumonia on 05/01/2016 Pneumonia (resulting in transient altered mental status) - improving, mentation is back to baseline. Continue IV Levaquin. Switch to oral when discharged. Episodes of hypoglycemic, patient report he has irregular life style , not really not eating meals regularly Has counseling him about regular meal, snack as needed,, Before leaving from hospital I ordered labs of C-peptide, insulin, proinsulin, cortisol PCP please follow-up with these results Referral to endocrinology if needed Patient has an elevated TSH but free T4 was normal Lymphedema b/l lower extremities - chronic and stable. Takes lasix daily. History of Type II DM - currently untreated and he is on regular diet, actually had a low sugar early this am. HTN - stable Degenerative joint disease of knee - currently using crutches to ambulate. Will have PT/OT evaluate for any increased needs due to deconditioning as he lives independently. Dc instruction you have Pneumonia , will give you 7 days of oral Levaquin you have hypoglycemic episode, you need to take meal regularly, and take snack as needed I have send some labs, you need to follow up the testing results with your pcp , referral to microfilming document preparer if need - you need to follow up with your primary care physician in 1 week, - take medication as instructed, never overdose or any misuse, or take with alcohol, because misuse of medicine may cause organ damage or , call your primary care physician if have questions of medicaitons. - call your primary care physician OR go to local emergency room if has any fever/chill, chest pain, shortness of breathing, nausea/vomiting/abdominal pain , facial droop/slurry speech/local weakness, or if has any questions. - fall precaution - diet as instructed - you need to follow up with your subspecialist - you should understand that it is important to follow up the above instruction , and "not following the above instruction" may cause delayed or missed care of your medical conditions which may cause permanent organ damage and even . Total Time Spent: Greater than 30 minutes This includes examination of the patient, discharge planning, medication reconciliation, and communication with other providers. Discharge Instructions Please refer to the electronic Patient Visit Report (Discharge Instructions) for additional information. Additional Copies To Yohannes Carrillo M.D.
--- NOTE | 2016-05-04 13:48 | EDITING REQUIRED CODING QUERY ---
CODING QUERY To promote full compliance with coding requirements relating to patient care, provider participation is requested in all cases of pushcart peddler uncertainty. Please assist us with the question(s) below: Dear Dr. Vaughn, Please clarify Pneumonia below: Consultation report: IMPRESSION: 1. Bilateral lower lung field infiltrate suggestive for pneumonia. 2. Consider aspiration in light of recurring infiltrates in the lower lung savage. 3. Leukocytosis -- worsened from admission. 4. Asthma by history. Coding Question(s): Please clarify Pneumonia: ( ) Aspiration ( x) Pneumonia - Community Acquired Pneumonia, NOS ( ) Bacterial ( ) Viral ( ) Other: Please Explain ( ) Unable to determine: will be coded as Pneumonia, CAP, NOS Physician's Response(s): Thank you for your time. Marlen Wallace [facility] Principal Diagnosis: "_that condition established after study, to be chiefly responsible for occasioning the admission of the patient to the hospital for care." Co-Existing Principal Diagnosis: "_when two or more diagnoses equally meet the criteria for principal diagnosis as determined by the circumstances of admission, diagnostic work up, and/or therapy provided, and the Alphabetic Index, Tabular List, or another coding guideline does not provide sequencing direction, any one of the diagnoses may be sequenced first." "When the physician has documented what appears to be a current diagnosis in the body of the record, but has not included the diagnosis in the final diagnostic statement, the physician should be asked whether the diagnosis should be added." (Source Coding Clinic 2 QTR90. p3-4)
[2016-06-04] MEDS ORDERED: PRED20TA PO (10:16)
[2016-06-04] MEDS ORDERED: LEVO1TAB33 PO (10:16)
== END 2016-05-03 12:10 | disposition home or self-care (01) | DRG 195 ==
LOC: ENRESERVDT → ENRESERVTM → C.EDB 11:44 → C.MSN 15:59
PROVIDERS: ADMIT Hospitalist; ATTEND Hospitalist
DX: J18.9 Pneumonia, unspecified organism (principal); E11.649 Type 2 diabetes mellitus with hypoglycemia without coma; I10 Essential (primary) hypertension; E03.9 Hypothyroidism, unspecified; J45.909 Unspecified asthma, uncomplicated; K21.9 Gastro-esophageal reflux disease without esophagitis; E78.5 Hyperlipidemia, unspecified; F31.9 Bipolar disorder, unspecified; Z23 Encounter for immunization; F20.9 Schizophrenia, unspecified; M17.9 Osteoarthritis of knee, unspecified; D72.829 Elevated white blood cell count, unspecified; R09.02 Hypoxemia; F10.21 Alcohol dependence, in remission; I89.0 Lymphedema, not elsewhere classified; R41.82 Altered mental status, unspecified; G47.00 Insomnia, unspecified; R53.81 Other malaise; Z79.82 Long term (current) use of aspirin; Z79.899 Other long term (current) drug therapy

== ENCOUNTER 2016-06-01 14:14 | Inpatient (IN) | payer OTHER ==
[~2016-06-01] VITALS: Ht 177.8 cm; Wt 110.0 kg
[~2016-06-01 14:14] MED LIST changes: -BUPR-83 PO; +BUPR150T5 PO; -DIVA500T59 PO; +DPKSR500 PO; +LEVO1TAB35 PO; +POLY335019 PO; -PSYL1POW4 PO
[2016-06-01] MEDS ORDERED: ACETAMINOPHEN 500 MG TAB PO STA (14:51)
[2016-06-01] MEDS ORDERED: PIPERACILLIN/TAZOBACTAM 4.5 GM/100ML D5W IV STA (14:51)
[2016-06-01] MEDS ORDERED: SODIUM CHLORIDE 0.9% 1000ML 1,000 ML IV ONE (14:51)
--- NOTE | 2016-06-01 15:10 | DIAGNOSTIC IMAGING REPORT ---
SINGLE VIEW CHEST CLINICAL HISTORY: Sepsis. FINDINGS: An AP, portable, upright chest radiograph is compared to study dated 05/01/2016. Correlation is made with chest CT dated 09/10/2014. The examination is degraded by portable technique and patient rotation. The cardiomediastinal silhouette is normal for projection. The pulmonary vasculature is noncongested. There is patchy airspace consolidation seen at the lung bases, right greater than left. No large pleural effusion or pneumothorax is seen. The skeletal structures are osteopenic. The bony thorax is grossly intact. IMPRESSION: There is patchy bibasilar airspace consolidation, right greater than left. Correlate clinically for evidence of aspiration pneumonitis/pneumonia. Radiographic follow-up to resolution is recommended. Electronically signed by: Rome Brumfield M.D. 06/01/2016 3:09 PM Dictated Date/Time: 06/01/2016 3:07 PM
[2016-06-01] MEDS ORDERED: VNTHFA/IN INH (15:30)
[2016-06-01 15:36] LABS: URINE APPEARANCE CLEAR (CLEAR); URINE BILIRUBIN NEG (NEG); URINE COLOR YELLOW; URINE EPITHELIAL CELL AUTO 0-5 /lpf (0-5); URINE NITRITE NEG (NEG); URINE SPECIFIC GRAVITY 1.006 (1.000-1.030); UROBILINOGEN NEG (NEG); ZZUR CULT IF INDIC CLEAN CATCH NO
[2016-06-01 15:41] LABS: MANUAL MICROSCOPIC REQUIRED? NO; REVIEW REQ? NO
[2016-06-01 15:55] LABS: COMPLETE YES; EOS % 0.2 %; HEMATOCRIT 41.1 % (42-52); IG% 0.3 %; LYMPH % 5.2 %; LYMPH ABS # 0.64 K/uL (1.2-3.4); MEAN CELL VOLUME 89.5 fL (80-100); MEAN CORPUSCULAR HEMOGLOBIN 31.2 pg (25-34); MEAN CORPUSCULAR HGB CONC 34.8 g/dl (32-36); MEAN PLATELET VOLUME 8.6 fL (7.4-10.4); MONO % 9.2 %; NEUT % 85.1 %; PLATELET COUNT 187 K/uL (130-400); RED BLOOD COUNT 4.59 M/uL (4.7-6.1); WHITE BLOOD COUNT 12.38 K/uL (4.8-10.8)
[2016-06-01 16:08] LABS: PARTIAL THROMBOPLASTIN RATIO 0.9; PROTHROMBIN TIME (PATIENT) 10.5 SECONDS (9.0-12.0)
[2016-06-01] MEDS ORDERED: LEVALBUTEROL 1.25MG/0.5ML NEB INH STA (16:21)
[2016-06-01] MEDS ORDERED: IPRATROPIUM BROMIDE NEB SOLN 0.02% 2.5 ML VIAL INH STA (16:21)
[2016-06-01 16:26] LABS: BUN/CREATININE RATIO 10.8 (10-20); CALCIUM 8.6 mg/dl (8.5-10.1); CREATININE 1.3 mg/dl (0.60-1.40)
[2016-06-01 16:36] LABS: THYROID STIMULATING HORMONE 1.61 uIu/ml (0.300-4.500)
--- NOTE | 2016-06-01 17:33 | EMERGENCY ROOM VISIT NOTE ---
History Report prepared by Beny: Ivan Vee Under the Supervision of: Dr. Rome Feldman M.D. First contact with patient: 14:48 Chief Complaint: HYPOGLYCEMIA Stated Complaint: HYPOGLYCEMIA/SYNCOPE Nursing Triage Summary: Pt was brought in via ambulance ALS. Pt woke up this am and stated that he thinks he passed out this morning. The pt stated that when he woke back up he felt as if he was hypoglycemic. Pt stated to EMS that his BS was in the 40's. EMS gave the pt oral glucose and then recheck BS which was now 147. Pt was not symptomatic en route. 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 The patient woke up this morning and felt like he may have passed out, but he is not sure if he did. He also felt as though he was hypoglycemic. The patient's BSG was in the 40s upon EMS arrival. He was given oral glucose in the ambulance, which brought his BSG up to 147. The patient hasn't had much to eat since last night. He states that he does not follow a diabetic diet. The patient also notes feeling febrile and having slightly increased cough and congestion. He has also been sweating more than baseline. He denies any sore throats, vomiting, diarrhea, or urinary symptoms. The patient hasn't had any increased lower extremity edema compared to baseline. He was immunized for influenza this year. The patient is not a smoker. He is not currently on an antibiotic. 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 A total of 10 systems reviewed and were otherwise negative. Past Medical & Surgical Medical Problems: (1) Altered mental status (2) Asthma (3) Benign hypertension (4) Bilateral lower extremity edema (5) Bipolar disorder (6) Community acquired pneumonia (7) Diabetes (8) Gastroesophageal reflux disease (9) Hypoglycemia (10) Hyponatremia (11) Hypothyroidism (12) Hypoxia (13) Insomnia (14) Knee pain (15) Lymphedema of both lower extremities (16) Pneumonia (17) Pneumonia (18) Rib pain on left side (19) Schizophrenia (20) Sepsis (21) Sepsis (22) SOB (shortness of breath) (23) Soft tissue disorder (24) Unable to void (25) Weakness Family History Diabetes mellitus Gallbladder disease Hypertension Social History Smoking Status: Never Smoker Alcohol Use: none Drug Use: none Marital Status: single Housing Status: lives alone Occupation Status: unemployed Current/Historical Medications Scheduled Albuterol Hfa (Ventolin Hfa), 2 PUFFS INH DAILY Aspirin (Aspirin EC Low Dose), 81 MG PO DAILY Bupropion Hcl (Bupropion Hcl Xl), 1 TAB PO QAM Buspirone Hcl (Buspirone Hcl), 30 MG PO BID Clonazepam (Klonopin), 1 MG PO QDL Clonazepam (Klonopin), 2 TAB PO HS Divalproex Sodium (Depakote Er), 250 MG PO HS Divalproex Sodium (Depakote Er), 2,000 MG PO UD Divalproex Sodium (Depakote Er), 1,500 MG PO UD Divalproex Sodium (Divalproex Sodium ER), 1,750 MG PO HS Furosemide (Lasix), 40 MG PO DAILY Levothyroxine Sodium (Levothyroxine Sodium), 175 MCG PO DAILY Lisinopril (Zestril), 10 MG PO DAILY Loratadine (Claritin), 10 MG PO DAILY Loxapine Succinate (Loxapine Succinate), 150 MG PO HS Magnesium Oxide (Mag-Ox), 400 MG PO DAILY Montelukast Sodium (Montelukast Sodium), 10 MG PO HS Omeprazole (Prilosec), 20 MG PO DAILY Potassium Ext Rel (Klor-Con), 40 MEQ PO DAILY Pravastatin (Pravachol ), 20 MG PO HS Ranitidine (Zantac), 150 MG PO BID Ziprasidone Hcl (Geodon), 80 MG PO QAM Ziprasidone Hcl (Geodon), 160 MG PO HS Scheduled PRN Fluticasone Propionate (Nasal) (Flonase Allergy Relief ), NA DAILY PRN for Nasal Congestion Polyethylene Glycol 3350 (Miralax), 17 GM PO DAILY PRN for Constipation Allergies Coded Allergies: No Known Allergies (Verified , 06/01/16) Physical Exam Vital Signs Date Time Temp Pulse Resp B/P Pulse Ox O2 Delivery O2 Flow Rate FiO2 2/3/17 16:17 109 20 133/92 94 Room Air 06/01/16 15:09 96 Room Air 06/01/16 14:27 38.0 121 20 148/88 94 Room Air Physical Exam GENERAL: Patient is in no acute distress. HEENT: No acute trauma, normocephalic atraumatic, mucous membranes moist, no nasal congestion, no scleral icterus. NECK: No stridor, no adenopathy, no meningismus, trachea is midline. LUNGS: Wheezing and crackles bilaterally, breath sounds are equal, dry cough noted, no respiratory distress. HEART: Tachycardic with a regular rhythm, no murmurs. ABDOMEN: Soft, nontender, bowel sounds positive, no hernias, no peritonitis. EXTREMITIES: No cyanosis, significant bilateral pedal edema without cellulitis, full range of motion of all the joints without pain or difficulty, no signs for acute trauma. NEUROLOGIC: Oriented x 3, no acute motor or sensory deficits, no focal weakness. SKIN: No rash, no jaundice, mild diaphoresis. Medical Decision & Procedures ER Provider Diagnostic Interpretation: X-ray results as stated below per interpretation by me and the radiologist: SINGLE VIEW CHEST CLINICAL HISTORY: Sepsis. FINDINGS: An AP, portable, upright chest radiograph is compared to study dated 05/01/2016. Correlation is made with chest CT dated 09/10/2014. The examination is degraded by portable technique and patient rotation. The cardiomediastinal silhouette is normal for projection. The pulmonary vasculature is noncongested. There is patchy airspace consolidation seen at the lung bases, right greater than left. No large pleural effusion or pneumothorax is seen. The skeletal structures are osteopenic. The bony thorax is grossly intact. IMPRESSION: There is patchy bibasilar airspace consolidation, right greater than left. Correlate clinically for evidence of aspiration pneumonitis/pneumonia. Radiographic follow-up to resolution is recommended. Electronically signed by: Rome Brumfield M.D. 06/01/2016 3:09 PM Dictated Date/Time: 06/01/2016 3:07 PM Laboratory Results 06/01/16 15:43 Red Blood Count 4.59, Mean Corpuscular Volume 89.5, Mean Corpuscular Hemoglobin 31.2, Mean Corpuscular Hemoglobin Concent 34.8, Mean Platelet Volume 8.6, Neutrophils (%) (Auto) 85.1, Lymphocytes (%) (Auto) 5.2, Monocytes (%) (Auto) 9.2, Eosinophils (%) (Auto) 0.2, Basophils (%) (Auto) 0.0, Neutrophils # (Auto) 10.54, Lymphocytes # (Auto) 0.64, Monocytes # (Auto) 1.14, Eosinophils # (Auto) 0.02, Basophils # (Auto) 0.00 06/01/16 15:43 Test 06/01/16 14:23 06/01/16 15:10 06/01/16 15:36 06/01/16 15:43 Bedside Glucose 124 mg/dl (70-99) Urine Color YELLOW Urine Appearance CLEAR (CLEAR) Urine pH 7.0 (4.5-7.5) Urine Specific [place] 1.006 (1.000-1.030) Urine Protein NEG (NEG) Urine Glucose (UA) NEG (NEG) Urine Ketones NEG (NEG) Urine Occult Blood NEG (NEG) Urine Nitrite NEG (NEG) Urine Bilirubin NEG (NEG) Urine Urobilinogen NEG (NEG) Urine Leukocyte Esterase NEG (NEG) Urine WBC (Auto) 1-5 /hpf (0-5) Urine RBC (Auto) 0-4 /hpf (0-4) Urine Hyaline Casts (Auto) 0 /lpf (0-5) Urine Epithelial Cells (Auto) 0-5 /lpf (0-5) Urine Bacteria (Auto) NEG (NEG) Influenza Type A Antigen Neg for Influ A (NEG) Influenza Type B Antigen Neg for Influ B (NEG) White Blood Count 12.38 K/uL (4.8-10.8) Red Blood Count 4.59 M/uL (4.7-6.1) Hemoglobin 14.3 g/dL (14.0-18.0) Hematocrit 41.1 % (42-52) Mean Corpuscular Volume 89.5 fL (80-100) Mean Corpuscular Hemoglobin 31.2 pg (25-34) Mean Corpuscular Hemoglobin Concent 34.8 g/dl (32-36) Platelet Count 187 K/uL (130-400) Mean Platelet Volume 8.6 fL (7.4-10.4) Neutrophils (%) (Auto) 85.1 % Lymphocytes (%) (Auto) 5.2 % Monocytes (%) (Auto) 9.2 % Eosinophils (%) (Auto) 0.2 % Basophils (%) (Auto) 0.0 % Neutrophils # (Auto) 10.54 K/uL (1.4-6.5) Lymphocytes # (Auto) 0.64 K/uL (1.2-3.4) Monocytes # (Auto) 1.14 K/uL (0.11-0.59) Eosinophils # (Auto) 0.02 K/uL (0-0.5) Basophils # (Auto) 0.00 K/uL (0-0.2) RDW Standard Deviation 42.7 fL (36.4-46.3) RDW Coefficient of Variation 13.1 % (11.5-14.5) Immature Granulocyte % (Auto) 0.3 % Immature Granulocyte # (Auto) 0.04 K/uL (0.00-0.02) Prothrombin Time 10.5 SECONDS (9.0-12.0) Prothromb Time International Ratio 1.0 (0.9-1.1) Activated Partial Thromboplast Time 24.6 SECONDS (21.0-31.0) Partial Thromboplastin Ratio 0.9 Anion Gap 13.0 mmol/L (3-11) Est Creatinine Clear Calc Drug Dose 77.6 ml/min Estimated GFR () 69.7 Estimated GFR (Non- 60.1 BUN/Creatinine Ratio 10.8 (10-20) Bedside Lactic Acid Venous 2.48 mmol/L (0.90-1.70) Calcium Level 8.6 mg/dl (8.5-10.1) Total Bilirubin 0.3 mg/dl (0.2-1) Aspartate Amino Transf (AST/SGOT) 22 U/L (15-37) Alanine Aminotransferase (ALT/SGPT) 15 U/L (12-78) Alkaline Phosphatase 76 U/L (45-117) Total Protein 6.4 gm/dl (6.4-8.2) Albumin 3.2 gm/dl (3.4-5.0) Globulin 3.2 gm/dl (2.5-4.0) Albumin/Globulin Ratio 1.0 (0.9-2) Thyroid Stimulating Hormone (TSH) 1.610 uIu/ml (0.300-4.500) Free Thyroxine 1.05 ng/dl (0.80-1.60) Valproic Acid (Depakene) Level 78 mcg/ml (50-100) Laboratory results reviewed by me. Medications Administered Medications (Trade) Dose Ordered Sig/Daniel Route Start Time Stop Time Status Last Admin Dose Admin Sodium Chloride (Nss 1000ml) 1,000 ml @ 999 mls/hr Q1H1M ONCE IV 06/01/16 14:51 06/01/16 15:51 DC 06/01/16 16:15 999 MLS/HR Piperacillin Sod/ Tazobactam Sod (Zosyn Iv) 4.5 gm ONE STAT IV 06/01/16 14:51 06/01/16 14:53 DC 06/01/16 16:15 4.5 GM Acetaminophen (Tylenol Tab) 1,000 mg NOW STAT PO 06/01/16 14:51 06/01/16 14:53 DC 06/01/16 16:15 1,000 MG Levalbuterol (Xopenex 1.25MG/ 0.5ML Neb) 1.25 mg NOW STAT INH 06/01/16 16:21 06/01/16 16:22 DC 06/01/16 17:18 1.25 MG Ipratropium [place] (Atrovent 0.02% 0.5MG/2.5ML Neb) 0.5 mg NOW STAT INH 06/01/16 16:21 06/01/16 16:22 DC 06/01/16 17:18 0.5 MG ECG Indication: syncope (possible) Rate (beats per minute): 114 Rhythm: sinus tachycardia Findings: RBBB, no acute ischemic change, other (LVH) ED Course 1450: The patient was evaluated in room C12a. A complete history and physical exam was performed. 1451: Tylenol 1000 mg PO, Zosyn 4.5 gm IV, NSS 1000 ml @ 999 mls/hr. 1621: Atrovent 0.02% 0.5MG/2.5ML Neb 0.5 mg INH, Xopenex 1.25MG/0.5ML Neb 1.25 mg INH. 1652: [facility] The patient will be evaluated. 1700: Reassessed the patient. Discussed the plan with him. He verbalized understanding and agreement. Medical Decision Differential diagnosis includes sepsis, UTI, cellulitis, pneumonia, bronchitis, influenza, dehydration, electrolyte imbalance. There is a mild leukocytosis which would be consistent with infection, no concerning anemia. No significant electrolyte abnormality, kidney failure or hepatitis. Urinalysis does not show infection. Blood cultures are pending. Chest x-ray shows a bilateral lower lobe pneumonia. Lactic acid level is slightly elevated, this could be consistent with early sepsis. Influenza testing was negative. Valproic acid level is nontoxic. There is no coagulopathy. The patient presents with a fever, a low blood sugar, weakness and possibly a syncopal spell earlier today. He received IV saline, this helped his heart rate significantly. He was given oral Tylenol. He received IV Zosyn for antibiotic coverage. He was given a Xopenex Atrovent neb. The patient is looking improved. He did eat a meal without difficulty. He was told the results of this testing. I do think admission/observation is warranted. I did speak with the telephonic nurse case manager. The on-call hospitalist was consulted. Consults Time Called: [id number] Consulting Physician: Dr. Churchill, [facility] Returned Call: [phone]: Discussed the case with Dr. Churchill, [facility]. The patient will be evaluated. Impression Primary Impression: Sepsis Additional Impression: Pneumonia Scribe Attestation The scribe's documentation has been prepared under my direction and personally reviewed by me in its entirety. I confirm that the note above accurately reflects all work, treatment, procedures, and medical decision making performed by me. Departure Information Dispostion Being Evaluated By Hospitalist Referrals ,Yohannes Beyer M.D. (PCP) Patient Instructions My [facility] Problem Qualifiers
[2016-06-01] MEDS ORDERED: ACETAMINOPHEN 325 MG TAB PO PRN ×2 (20:30→20:45)
[2016-06-01] MEDS ORDERED: ZOLPIDEM TARTRATE 5 MG TAB PO PRN ×2 (20:30→20:45)
[2016-06-01] MEDS ORDERED: FLUTICASONE PROPIONATE NA SPR 16 GM BTL PRN (20:30)
[2016-06-01] MEDS ORDERED: NITROGLYCERIN 0.4 MG SL PER TAB CHARGE SL PRN (20:30)
[2016-06-01] MEDS ORDERED: POLYETHYLENE (MIRALAX) 17 GM PACK PO PRN (20:30)
[2016-06-01] MEDS ORDERED: LACTOBACILLUS ACIDOPHILUS (FLORANEX) TAB PO ONE (20:36)
[2016-06-01] MEDS ORDERED: MoRPHine SULFATE 2 MG/ML CARP IV PRN (20:45)
[2016-06-01] MEDS ORDERED: MAGNESIUM HYDROXIDE SUSP 30 ML UDC PO PRN (20:45)
[2016-06-01] MEDS ORDERED: DiphenhydrAMINE HCL 50 MG/ML VIAL IV PRN (20:45)
[2016-06-01] MEDS ORDERED: ONDANSETRON INJ 2 MG/ML 2 ML VIAL IV PRN ×2 (20:45)
[2016-06-01] MEDS ORDERED: PROMETHAZINE HCL INJ 12.5 MG in SODIUM CHLORIDE 0.9% 50ML 50 ML IV PRN (20:45)
[2016-06-01] MEDS ORDERED: ALUMINUM/MAGNESIUM/SIMETH (MAALOX MAX) 30 ML UDC PO PRN (20:45)
[2016-06-01] MEDS ORDERED: LORAZEPAM 2 MG/ML 1 ML VIAL IV PRN ×2 (20:45)
[2016-06-01] MEDS ORDERED: LEVALBUTEROL/IPRATROPIUM NEB INH SCH (21:00)
[2016-06-01] MEDS ORDERED: PIPERACILL/TAZOBAC CONSULT ACTIVE PRN (21:15)
[2016-06-01] MEDS ORDERED: VANCOMYCIN CONSULT ACTIVE PRN (21:15)
[2016-06-01] MEDS ORDERED: VANCOMYCIN INJ 2,800 MG in SODIUM CHLORIDE 0.9% 500ML 500 ML IV ONE (21:30)
[2016-06-01 21:41] VITALS: PULSE 95; O2SAT 93
[2016-06-01] MEDS: IPRATROPIUM BROMIDE NEB SOLN 0.02% 2.5 ML VIAL INH PRN ×2 (21:41→23:55)
[2016-06-01] MEDS: LEVALBUTEROL 0.63MG/3 ML NEB INH PRN ×2 (21:41→23:55)
[2016-06-01] MEDS: LEVOFLOXACIN / D5W 500 MG in PREMIXED IN D5W 100 ML IV SCH (21:58)
--- NOTE | 2016-06-01 21:58 | History and Physical ---
History & Physical Date & Time of Service: Jun 01, 2016 at 21:46 Chief Complaint: Pneumonia, Sepsis Primary Care Physician: Yohannes Carrillo M.D. History of Present Illness Source: patient, spouse Past Medical/Surgical History Medical Problems: (1) Asthma Status: Chronic (2) Benign hypertension Status: Chronic (3) Bilateral lower extremity edema Status: Resolved (4) Bipolar disorder Status: Chronic (5) Diabetes Status: Chronic (6) Gastroesophageal reflux disease Status: Chronic (7) Hypoglycemia Status: Resolved (8) Hyponatremia Status: Resolved (9) Hypothyroidism Status: Chronic (10) Hypoxia Status: Resolved (11) Insomnia Status: Resolved (12) Knee pain Status: Resolved (13) Pneumonia Status: Resolved (14) Pneumonia Status: Resolved (15) Rib pain on left side Status: Resolved (16) Schizophrenia Status: Chronic (17) Sepsis Status: Resolved (18) Sepsis Status: Resolved (19) SOB (shortness of breath) Status: Resolved (20) Soft tissue disorder Status: Resolved (21) Unable to void Status: Resolved (22) Weakness Status: Resolved Family History Diabetes mellitus Gallbladder disease Hypertension Social History Smoking Status: Never Smoker Drug Use: none Marital Status: single Housing status: lives alone Occupational Status: unemployed Immunizations History of Influenza Vaccine: Yes Influenza Vaccine Date: Mar 03, 2013 History of Tetanus Vaccine?: UTD History of Pneumococcal: Yes Pneumococcal Date: Feb 28, 2008 History of Hepatitis B Vaccine: No Multi-Drug Resistant Organisms History of MDRO: No Allergies Coded Allergies: No Known Allergies (Verified , 06/01/16) Home Medications Scheduled Albuterol Hfa (Ventolin Hfa), 2 PUFFS INH DAILY Aspirin (Aspirin EC Low Dose), 81 MG PO DAILY Bupropion Hcl (Bupropion Hcl Xl), 1 TAB PO QAM Buspirone Hcl (Buspirone Hcl), 30 MG PO BID Clonazepam (Klonopin), 1 MG PO QDL Clonazepam (Klonopin), 2 TAB PO HS Divalproex Sodium (Depakote Er), 250 MG PO HS Divalproex Sodium (Depakote Er), 2,000 MG PO UD Divalproex Sodium (Depakote Er), 1,500 MG PO UD Divalproex Sodium (Divalproex Sodium ER), 1,750 MG PO HS Furosemide (Lasix), 40 MG PO DAILY Levothyroxine Sodium (Levothyroxine Sodium), 175 MCG PO DAILY Lisinopril (Zestril), 10 MG PO DAILY Loratadine (Claritin), 10 MG PO DAILY Loxapine Succinate (Loxapine Succinate), 150 MG PO HS Magnesium Oxide (Mag-Ox), 400 MG PO DAILY Montelukast Sodium (Montelukast Sodium), 10 MG PO HS Omeprazole (Prilosec), 20 MG PO DAILY Potassium Ext Rel (Klor-Con), 40 MEQ PO DAILY Pravastatin (Pravachol ), 20 MG PO HS Ranitidine (Zantac), 150 MG PO BID Ziprasidone Hcl (Geodon), 80 MG PO QAM Ziprasidone Hcl (Geodon), 160 MG PO HS Scheduled PRN Fluticasone Propionate (Nasal) (Flonase Allergy Relief ), NA DAILY PRN for Nasal Congestion Polyethylene Glycol 3350 (Miralax), 17 GM PO DAILY PRN for Constipation Review of Systems The patient denies chest pain, palpitations, shortness of breath, cough, lower extremity swelling, vision change, hearing change, sore throat, fevers, chills, sweats, weight change, vomiting, abdominal pain, pelvic pain, blood in urine or stool, dysuria, urinary frequency or urgency, rash, abnormal bruising or bleeding, imbalance, arthralgias or myalgias, back or neck pain, night sweats, or allergy symptoms. The review of systems is otherwise negative other than for that already noted above, and at least 10 systems have been reviewed. Physical Exam Vital Signs Date Time Temp Pulse Resp B/P Pulse Ox O2 Delivery O2 Flow Rate FiO2 06/01/16 21:41 95 16 93 Room Air 06/01/16 19:00 98 20 138/91 94 Room Air 06/01/16 16:17 109 20 133/92 94 Room Air 06/01/16 15:09 96 Room Air 06/01/16 14:27 38.0 121 20 148/88 94 Room Air The patient is awake, alert and oriented 3, normocephalic and atraumatic, lying in bed and in no acute distress. HEENT--PERRL, EOMI, mucous membranes and oropharynx dry. Neck--supple, no JVD or bruits, thyroid normal, trachea midline, no adenopathy. Heart--normal S1 and S2, no extra beats, no murmurs, rubs or gallops. Lungs--wheezes and rhonchi bilaterally, no respiratory distress, no accessory muscle use. Abdomen--normal bowel sounds and soft, nontender and nondistended, no hernias or masses, no organomegaly. Extremities--no cyanosis, clubbing or edema. There are good distal pulses b/l. Dermatologic--normal skin turgor, normal color, warm and dry, no abnormal lymph nodes, no rash. Neurologic--cranial nerves II through XII grossly intact, motor and sensory examination normal. Rheumatologic--normal range of motion, nontender, muscles and joints. Psychiatric--normal affect. Diagnostics Laboratory Results Results Past 24 Hours Test 06/01/16 14:23 06/01/16 15:10 06/01/16 15:36 06/01/16 15:43 Range/Units Bedside Glucose 124 70-99 mg/dl Urine Color YELLOW Urine Appearance CLEAR CLEAR Urine pH 7.0 4.5-7.5 Urine Specific [place] 1.006 1.000-1.030 Urine Protein NEG NEG Urine Glucose (UA) NEG NEG Urine Ketones NEG NEG Urine Occult Blood NEG NEG Urine Nitrite NEG NEG Urine Bilirubin NEG NEG Urine Urobilinogen NEG NEG Urine Leukocyte Esterase NEG NEG Urine WBC (Auto) 1-5 0-5 /hpf Urine RBC (Auto) 0-4 0-4 /hpf Urine Hyaline Casts (Auto) 0 0-5 /lpf Urine Epithelial Cells (Auto) 0-5 0-5 /lpf Urine Bacteria (Auto) NEG NEG Influenza Type A Antigen Neg for Influ A NEG Influenza Type B Antigen Neg for Influ B NEG White Blood Count 12.38 4.8-10.8 K/uL Red Blood Count 4.59 4.7-6.1 M/uL Hemoglobin 14.3 14.0-18.0 g/dL Hematocrit 41.1 42-52 % Mean Corpuscular Volume 89.5 80-100 fL Mean Corpuscular Hemoglobin 31.2 25-34 pg Mean Corpuscular Hemoglobin Concent 34.8 32-36 g/dl Platelet Count 187 130-400 K/uL Mean Platelet Volume 8.6 7.4-10.4 fL Neutrophils (%) (Auto) 85.1 % Lymphocytes (%) (Auto) 5.2 % Monocytes (%) (Auto) 9.2 % Eosinophils (%) (Auto) 0.2 % Basophils (%) (Auto) 0.0 % Neutrophils # (Auto) 10.54 1.4-6.5 K/uL Lymphocytes # (Auto) 0.64 1.2-3.4 K/uL Monocytes # (Auto) 1.14 0.11-0.59 K/uL Eosinophils # (Auto) 0.02 0-0.5 K/uL Basophils # (Auto) 0.00 0-0.2 K/uL RDW Standard Deviation 42.7 36.4-46.3 fL RDW Coefficient of Variation 13.1 11.5-14.5 % Immature Granulocyte % (Auto) 0.3 % Immature Granulocyte # (Auto) 0.04 0.00-0.02 K/uL Prothrombin Time 10.5 9.0-12.0 SECONDS Prothromb Time International Ratio 1.0 0.9-1.1 Activated Partial Thromboplast Time 24.6 21.0-31.0 SECONDS Partial Thromboplastin Ratio 0.9 Sodium Level 138 136-145 mmol/L Potassium Level 4.0 3.5-5.1 mmol/L Chloride Level 104 98-107 mmol/L Carbon Dioxide Level 21 21-32 mmol/L Anion Gap 13.0 3-11 mmol/L Blood Urea Nitrogen 14 7-18 mg/dl Creatinine 1.30 0.60-1.40 mg/dl Est Creatinine Clear Calc Drug Dose 77.6 ml/min Estimated GFR () 69.7 Estimated GFR (Non- 60.1 BUN/Creatinine Ratio 10.8 10-20 Random Glucose 124 70-99 mg/dl Bedside Lactic Acid Venous 2.48 0.90-1.70 mmol/L Calcium Level 8.6 8.5-10.1 mg/dl Total Bilirubin 0.3 0.2-1 mg/dl Aspartate Amino Transf (AST/SGOT) 22 15-37 U/L Alanine Aminotransferase (ALT/SGPT) 15 12-78 U/L Alkaline Phosphatase 76 45-117 U/L Total Protein 6.4 6.4-8.2 gm/dl Albumin 3.2 3.4-5.0 gm/dl Globulin 3.2 2.5-4.0 gm/dl Albumin/Globulin Ratio 1.0 0.9-2 Thyroid Stimulating Hormone (TSH) 1.610 0.300-4.500 uIu/ml Free Thyroxine 1.05 0.80-1.60 ng/dl Valproic Acid (Depakene) Level 78 50-100 mcg/ml Test 06/01/16 19:28 06/01/16 20:27 06/01/16 20:59 Range/Units Bedside Glucose 83 147 70-99 mg/dl Microbiology Results 06/01/16 Blood Culture, Received Pending 06/01/16 Blood Culture, Received Pending Diagnostic Radiology Patient Name: LOU COLON Unit Number: [id number] Dictated: 06/01/161506 Transcribed: 06/01/161506 EV Printed Date/Time: [~ rep prt dt]/[~ rep prt tm] [~ rep ct labl] - [~ rep ct ivnm] [facility] [place] [address] Dictated: 06/01/161506 Transcribed: 06/01/16 150 EV Printed Date/Time: [~ rep prt dt]/[~ rep prt tm] [~ rep ct labl] - [~ rep ct ivnm] [~ rep ct add3]] SINGLE VIEW CHEST CLINICAL HISTORY: Sepsis. FINDINGS: An AP, portable, upright chest radiograph is compared to study dated 05/01/2016. Correlation is made with chest CT dated 09/10/2014. The examination is degraded by portable technique and patient rotation. The cardiomediastinal silhouette is normal for projection. The pulmonary vasculature is noncongested. There is patchy airspace consolidation seen at the lung bases, right greater than left. No large pleural effusion or pneumothorax is seen. The skeletal structures are osteopenic. The bony thorax is grossly intact. IMPRESSION: There is patchy bibasilar airspace consolidation, right greater than left. Correlate clinically for evidence of aspiration pneumonitis/pneumonia. Radiographic follow-up to resolution is recommended. Electronically signed by: Rome Brumfield M.D. 06/01/2016 3:09 PM Dictated Date/Time: 06/01/2016 3:07 PM The status of this report is Signed. Draft = Not yet reviewed or approved by Radiologist. Signed = Reviewed and approved by Radiologist. <AttendingPhy></AttendingPhy> <FamilyPhy>Yohannes Carrillo M.D.</FamilyPhy> < PrimaryPhy>Yohannes Carrillo M.D.</PrimaryPhy> <UnitNumber>[id number]</UnitNumber > <VisitNumber>[id number]</VisitNumber> <PatientName>LOU COLON</ PatientName> <DateOfBirth>1960</DateOfBirth> <Location>[facility]</Location> < ServiceDate>06/01/16</ServiceDate> <MNE>ESINDI</MNE> <OrderingPhy>Rome Feldman M.D.</OrderingPhy> <OrderingPhyMNE>f rep ord dr trejo</OrderingPhyMNE> < DictatingPhyMNE>f rep dict dr trejo</DictatingPhyMNE> <CCListMNE>f rep ct neil</ CCListMNE> <AdmittingPhyMNE>f pt admit dr trejo</AdmittingPhyMNE> <AttendingPhyMNE >f pt attend dr rtejo</AttendingPhyMNE> <ConsultingPhyMNE>f pt consult dr trejo</ConsultingPhyMNE> <FamilyPhyMNE>f pt fam dr trejo</FamilyPhyMNE> <OtherPhyMNE>f pt other dr trejo</OtherPhyMNE> < PrimaryPhyMNE>f pt prim care dr trejo</PrimaryPhyMNE> <ReferringPhyMNE>f pt referring dr trejo</ReferringPhyMNE> EKG EKG shows sinus tachycardia 114 bpm, right bundle branch block, left anterior fascicular block, no acute ST-T changes Impression Assessment and Plan Bilateral pneumonia/systemic inflammatory response syndrome--the patient will be admitted to the telemetry unit for close oxygen monitoring. We'll start vancomycin IV per renal dosing, Zosyn 3.375 mg IV every 8 hours, levofloxacin 500 mg IV every 24 hours, guaifenesin extended release 600 mg by mouth twice a day, Xopenex that for nebulizers every 6 hours while awake and every 2 hours when necessary, Solu-Medrol 40 mg IV every 8 hours. Nasal cannula 2 L O2, titrated to keep pulse ox greater than or equal to 92%. Bipolar disorder/schizophrenia--continue the appropriate on XL every morning, buspirone 30 mg by mouth twice a day, clonazepam 1 mg by mouth every morning and 2 mg by mouth at bedtime, Depakote ER per outpatient dosing, loxapine succinate 50 mg by mouth at bedtime, Geodon 80 mg by mouth every morning and 160 mg by mouth at bedtime. Hypothyroidism-- continue levothyroxine sodium 105 g by mouth daily. Hypertension--continue lisinopril 10 mg by mouth daily and enteric-coated aspirin 81 mg by mouth daily We will hold furosemide 40 mg by mouth daily, mag oxide 400 mg by mouth daily and potassium chloride 40 mEq by mouth daily. Hypercholesterolemia--continue pravastatin 20 mg by mouth at bedtime. GERD--continue ranitidine 150 mg by mouth twice a day, and change omeprazole 20 mg by mouth daily to pantoprazole 40 mg by mouth daily. Allergic rhinitis--continue montelukast sodium 10 mg by mouth at bedtime and loratadine 10 mg by mouth daily Level of Care Telemetry Advanced Directives Existing Advance Directive: No Existing Living Will: No Existing Power of Senior Marketing Specialist: No Resuscitation Status FULL RESUSCITATION VTE Prophylaxis VTE Risk Assessment Done? Y/N: Yes Risk Level: Moderate Given or contraindicated: SCD's
[2016-06-01] MEDS ORDERED: PIPERACILL/TAZOBAC IV 3.375 GM in DEXTROSE 5% 100ML 100 ML IV SCH (22:00)
[2016-06-01 22:26] VITALS: BP 120/81; PULSE 99; TEMP 37.1; O2SAT 92; Ht 177.8 cm; Wt 110.0 kg
--- NOTE | 2016-06-01 23:14 | Pharmacy Progress Note ---
Pharmacy Antibiotic Consult Date of Service: Jun 01, 2016. Pharmacy Dosing Scope Pharmacy is consulted to initiate vancomycin, Zosyn, and Levaquin IV dosing therapy, order appropriate labs and adjust drug dose/frequency. Subjective The patient is a 56 year old male admitted on Jun 01, 2016 at 19:21 with pnx. Objective Height (Feet): 5 Height (Inches): 10.00 Weight (Kilograms): 112.000 Lab Results (24hrs): Laboratory Tests Test 06/01/16 15:43 BUN/Creatinine Ratio 10.8 Blood Urea Nitrogen 14 mg/dl Creatinine 1.30 mg/dl White Blood Count 12.38 K/uL Red Blood Count 4.59 M/uL Hemoglobin 14.3 g/dL Hematocrit 41.1 % Mean Corpuscular Volume 89.5 fL Mean Corpuscular Hemoglobin 31.2 pg Mean Corpuscular Hemoglobin Concent 34.8 g/dl Platelet Count 187 K/uL Mean Platelet Volume 8.6 fL Neutrophils (%) (Auto) 85.1 % Lymphocytes (%) (Auto) 5.2 % Monocytes (%) (Auto) 9.2 % Eosinophils (%) (Auto) 0.2 % Basophils (%) (Auto) 0.0 % Neutrophils # (Auto) 10.54 K/uL Lymphocytes # (Auto) 0.64 K/uL Monocytes # (Auto) 1.14 K/uL Eosinophils # (Auto) 0.02 K/uL Basophils # (Auto) 0.00 K/uL Micro Results: Blood cx x 2 are pending Assessment & Plan Vancomycin for pnx: Loading dose: 2800 mg IV X 1 dose (25mg/kg) then: 1350 mg IV every 14 hours (12mg/kg). Dosing is conservative to prevent accumulation (BMI of 35). SCr is elevated; we will recalculate dose in AM if improvement. If not, will order trough level based on current calculations. Goal trough level estimate: between 15 - 20 mcg/mL. Trough level will be ordered in AM. Zosyn 4.5gm IV given initially in ER, then 3.375gm IV q 8 hrs extended infusion for CrCl > 20ml.min. Levaquin 500mg IV q 24 hrs. Pharmacy will continue to follow and will adjust dose/frequency as necessary. Thank you
[2016-06-01 23:55] VITALS: PULSE 91; O2SAT 93
[2016-06-01] MEDS: DIVALPROEX 500 MG EXTENDED RELEASE TAB PO SCH (23:56)
[2016-06-01 23:58] VITALS: BP 138/91; PULSE 91; TEMP 37; O2SAT 93
[2016-06-01] MEDS: DIVALPROEX 250 MG EXTENDED REL TAB PO SCH (23:58)
[2016-06-01] MEDS: POLYETHYLENE (MIRALAX) 17 GM PACK PO SCH (23:59)
[2016-06-02] VITALS (13 sets, daily range): BP systolic 126–159; BP diastolic 79–93; PULSE 91–113; TEMP 36.3–36.9; O2SAT 90–100
[2016-06-02] MEDS: PRAVASTATIN SOD 20 MG TAB PO SCH ×2 (00:01→21:18)
[2016-06-02] MEDS: BusPIRone 15 MG TAB PO SCH ×3 (00:02→21:19)
[2016-06-02] MEDS: ZIPRASIDONE 80 MG CAP PO SCH ×3 (00:03→21:19)
[2016-06-02] MEDS: RANITIDINE HCL 150 MG TAB PO SCH ×3 (00:04→21:18)
[2016-06-02] MEDS: PIPERACILL/TAZOBAC IV 3.375 GM in DEXTROSE 5% 100ML IV SCH ×4 (00:05→23:39)
[2016-06-02] MEDS: METHYLPREDNISOLONE IV 40 MG in SYRINGE 0 ML IV SCH ×3 (00:05→21:18)
[2016-06-02] MEDS: CLONAZEPAM 1 MG TAB PO SCH ×3 (00:13→21:20)
[2016-06-02] MEDS: IPRATROPIUM BROMIDE NEB SOLN 0.02% 2.5 ML VIAL INH SCH ×4 (01:43→19:04)
[2016-06-02] MEDS: LEVALBUTEROL 1.25MG/0.5ML NEB INH SCH ×4 (01:43→19:04)
[2016-06-02] MEDS: LEVOTHYROXINE 175 MCG TAB PO SCH (06:07)
[2016-06-02] MEDS: PANTOprazole SOD 40 MG TAB PO SCH (07:22)
[2016-06-02] MEDS: BuPROPion XL 150 MG TABCR PO SCH (07:23)
[2016-06-02] MEDS: POTASSIUM CHLORIDE 20 MEQ TABCR PO SCH (07:24)
[2016-06-02] MEDS: MAGNESIUM OXIDE 400 MG TAB PO SCH (07:24)
[2016-06-02] MEDS: LACTOBACILLUS ACIDOPHILUS (FLORANEX) TAB PO SCH ×3 (07:25→15:38)
[2016-06-02] MEDS: ASPIRIN 81 MG ECTAB PO SCH (07:25)
[2016-06-02] MEDS: POLYETHYLENE (MIRALAX) 17 GM PACK PO SCH (07:27)
[2016-06-02] MEDS: LORATADINE 10 MG TAB PO SCH (07:27)
[2016-06-02] MEDS: LISINOPRIL 10 MG TAB PO SCH (07:27)
[2016-06-02 07:31] LABS: BASO % 0.1 %; BASO ABS # 0.01 K/uL (0-0.2); COMPLETE YES; HEMATOCRIT 41.4 % (42-52); IG% 0.3 %; LYMPH ABS # 0.98 K/uL (1.2-3.4); MEAN CELL VOLUME 91.6 fL (80-100); MEAN CORPUSCULAR HEMOGLOBIN 30.3 pg (25-34); MEAN CORPUSCULAR HGB CONC 33.1 g/dl (32-36); MEAN PLATELET VOLUME 8.7 fL (7.4-10.4); MONO % 1.4 %; NEUT % 91.2 %; PLATELET COUNT 191 K/uL (130-400); RED BLOOD COUNT 4.52 M/uL (4.7-6.1); WHITE BLOOD COUNT 14.04 K/uL (4.8-10.8)
[2016-06-02 07:42] LABS: PARTIAL THROMBOPLASTIN RATIO 1.1; PROTHROMBIN TIME (PATIENT) 10.8 SECONDS (9.0-12.0)
[2016-06-02 07:52] LABS: BUN/CREATININE RATIO 8.4 (10-20); CREATININE 1.2 mg/dl (0.60-1.40); MAGNESIUM 2.3 mg/dl (1.8-2.4); POTASSIUM 4.4 mmol/L (3.5-5.1)
[2016-06-02] MEDS ORDERED: VANCOMYCIN INJ 1,350 MG in SODIUM CHLORIDE 0.9% 250ML 250 ML IV SCH (10:00)
--- NOTE | 2016-06-02 11:14 | Hospitalist Progress Note ---
Hospitalist Progress Note Date of Service Jun 02, 2016. Subjective Pt evaluation today including: conversation w/ patient, physical exam, chart review, lab review, review of studies, review of inpatient medication list Patient has no acute issues, states he feels better Denies any chest pain, Nausea or vomiting, fevers SOB greatly improved Constitutional: No fever Eyes: No worsening of vision ENT: No hearing loss Respiratory: + shortness of breath, + wheezing, No cough, No sputum Cardiovascular: No chest pain Abdomen: No constipation, No pain, No vomiting Musculoskeletal: No joint pain Male : No dysuria Neurologic: No memory loss Psychiatric: No depression symptoms Heme: No abnormal bleeding/bruising Endo: No fatigue Skin: No rash Medications Current Inpatient Medications Medications (Trade) Dose Ordered Sig/Daniel Route Start Time Stop Time Status Last Admin Dose Admin Nitroglycerin (Nitrostat Tab) 0.4 mg UD PRN SL 06/01/16 20:30 07/01/16 20:29 Aspirin (Ecotrin Tab) 81 mg DAILY PO 06/02/16 09:00 07/02/16 08:59 06/02/16 07:25 81 MG Bupropion HCl (Wellbutrin-Xl Tab) 150 mg QAM PO 06/02/16 09:00 07/02/16 08:59 06/02/16 07:23 150 MG Clonazepam (Klonopin Tab) 1 mg QDL PO 06/02/16 11:00 07/02/16 10:59 Clonazepam (Klonopin Tab) 2 mg HS PO 06/01/16 21:00 07/01/16 20:59 06/02/16 00:13 2 MG Divalproex Sodium (Depakote Extended Rel Tab) 250 mg HS PO 06/01/16 21:00 07/01/16 20:59 06/01/16 23:58 250 MG Divalproex Sodium (Depakote Extended Rel Tab) 2,000 mg DAILY@1200 PO 06/02/16 12:00 07/02/16 11:59 Fluticasone Propionate (Flonase Nasal [place]) 1 sprays DAILY PRN NA 06/01/16 20:30 07/01/16 20:29 Levothyroxine Sodium (Synthroid Tab) 175 mcg DAILYBB PO 06/02/16 06:00 07/02/16 05:59 06/02/16 06:07 175 MCG Lisinopril (Zestril Tab) 10 mg DAILY PO 06/02/16 09:00 07/02/16 08:59 06/02/16 07:27 10 MG Loratadine (Claritin Tab) 10 mg DAILY PO 06/02/16 09:00 07/02/16 08:59 06/02/16 07:27 10 MG Magnesium Oxide (Mag-Ox Tab) 400 mg DAILY PO 06/02/16 09:00 07/02/16 08:59 06/02/16 07:24 400 MG Montelukast Sodium (Singulair Tab) 10 mg HS PO 06/01/16 21:00 07/01/16 20:59 06/02/16 00:00 10 MG Potassium Chloride (Klor-Con Tab) 40 meq DAILY PO 06/02/16 09:00 07/02/16 08:59 06/02/16 07:24 40 MEQ Pravastatin Sodium (Pravachol Tab) 20 mg HS PO 06/01/16 21:00 07/01/16 20:59 06/02/16 00:01 20 MG Ranitidine HCl (zANTac TAB) 150 mg BID PO 06/01/16 21:00 07/01/16 20:59 06/02/16 07:22 150 MG Ziprasidone (Geodon Cap) 160 mg HS PO 06/01/16 21:00 07/01/16 20:59 06/02/16 00:03 160 MG Miscellaneous Information (Order Awaiting Action) 1 ea QS N/A 06/01/16 22:00 07/01/16 21:59 Buspirone HCl (BusPAR TAB) 30 mg BID PO 06/01/16 21:00 07/01/16 20:59 06/02/16 07:24 30 MG Pantoprazole Sodium (Protonix Tab) 40 mg QAM PO 06/02/16 09:00 07/02/16 08:59 06/02/16 07:22 40 MG Polyethylene (Miralax Powder Packet) 17 gm DAILY PO 06/01/16 21:00 07/01/16 20:59 06/02/16 07:27 17 GM Polyethylene (Miralax Powder Packet) 17 gm QAM PRN PO 06/01/16 20:30 07/01/16 20:29 Ziprasidone (Geodon Cap) 80 mg QAM PO 06/02/16 09:00 07/02/16 08:59 06/02/16 07:23 80 MG Lorazepam (Ativan Inj) 0.5 mg Q4H PRN IV 06/01/16 20:45 07/01/16 20:44 Lorazepam (Ativan Inj) 1 mg Q4H PRN IV 06/01/16 20:45 07/01/16 20:44 Acetaminophen (Tylenol Tab) 650 mg Q4H PRN PO 06/01/16 20:45 07/01/16 20:44 Magnesium Hydroxide (Milk Of Magnesia Susp) 30 ml Q6H PRN PO 06/01/16 20:45 07/01/16 20:44 Diphenhydramine HCl (Benadryl Inj) 25 mg Q4H PRN IV 06/01/16 20:45 07/01/16 20:44 Al Hydrox/Mg Hydrox/ Simethicone 15 ml 15 ml Q4H PRN PO 06/01/16 20:45 07/01/16 20:44 Promethazine HCl/ Sodium Chloride (Phenergan Inj/ Nss 50ml) 50.5 ml @ 202 mls/hr Q4H PRN IV 06/01/16 20:45 07/01/16 20:44 Zolpidem Tartrate (Ambien Tab) 5 mg HSZ PRN PO 06/01/16 20:45 07/01/16 20:44 Ondansetron HCl (Zofran Inj) 4 mg Q6H PRN IV 06/01/16 20:45 07/01/16 20:44 Morphine Sulfate 2 mg 2 mg Q2H PRN IV 06/01/16 20:45 06/15/16 20:44 Vancomycin HCl 1350 mg/Sodium Chloride 277 ml @ 125 mls/hr Q14H IV 06/02/16 10:00 06/08/16 09:59 06/02/16 10:12 125 MLS/HR Levofloxacin/Prmx (Levaquin / D5W/ Premixed D5W) 100 ml @ 100 mls/hr Q24H IV 06/01/16 21:30 06/08/16 21:29 06/01/16 21:58 100 MLS/HR Lactobacillus Acidophilus (Floranex Tab) 4 tab TIDM PO 06/02/16 07:30 07/02/16 07:59 06/02/16 07:25 4 TAB Vancomycin HCl (Consult) 1 ea UD PRN N/A 06/01/16 21:15 07/01/16 21:14 Piperacillin Sod/ Tazobactam Sod (Consult) 1 ea UD PRN N/A 06/01/16 21:15 07/01/16 21:14 Ipratropium [place] (Atrovent 0.02% 0.5MG/2.5ML Neb) 0.5 mg Q6R INH 06/02/16 03:00 07/02/16 02:59 06/02/16 07:14 0.5 MG Levalbuterol (Xopenex 1.25MG/ 0.5ML Neb) 1.25 mg Q6R INH 06/02/16 03:00 07/02/16 02:59 06/02/16 07:14 1.25 MG Ipratropium [place] (Atrovent 0.02% 0.5MG/2.5ML Neb) 0.5 mg Q2HWA PRN INH 06/01/16 21:30 07/01/16 21:29 06/01/16 23:55 0.5 MG Levalbuterol 0.63 mg 0.63 mg Q2HWA PRN INH 06/01/16 21:30 07/01/16 21:29 06/01/16 23:55 0.63 MG Piperacillin Sod/ Tazobactam Sod/ Dextrose (Zosyn Iv/D5 100ml) 115 ml @ 28.75 mls/ hr Q8@0000,0800,1600 IV 06/02/16 00:00 06/08/16 15:59 06/02/16 07:26 28.75 MLS/HR Divalproex Sodium 1500 mg 1,500 mg HS PO 06/01/16 21:00 07/01/16 20:59 06/01/16 23:56 1,500 MG Methylprednisolone Sodium Succinate/ Syringe (Solu-Medrol IV/ Syringe) 0.64 ml @ 1.5 mls/min Q12 IV 06/02/16 21:00 07/02/16 20:59 UNV Objective Vital Signs Date Time Temp Pulse Resp B/P Pulse Ox O2 Delivery O2 Flow Rate FiO2 06/02/16 08:00 90 Room Air 06/02/16 07:14 93 16 90 Room Air 06/02/16 07:12 36.9 93 17 159/93 97 Room Air 06/02/16 04:23 36.9 95 18 126/86 96 Room Air 06/02/16 04:00 96 Room Air 06/02/16 01:43 91 16 90 Room Air 06/02/16 00:01 93 Room Air 06/01/16 23:58 37.0 91 19 138/91 93 Room Air 06/01/16 23:55 91 16 93 Room Air 06/01/16 22:26 37.1 99 20 120/81 92 Room Air 06/01/16 21:41 95 16 93 Room Air 06/01/16 19:00 98 20 138/91 94 Room Air 06/01/16 16:17 109 20 133/92 94 Room Air 06/01/16 15:09 96 Room Air 06/01/16 14:27 38.0 121 20 148/88 94 Room Air Physical Exam General Appearance: WD/WN, no apparent distress Eyes: normal inspection ENT: normal ENT inspection Neck: supple Respiratory/Chest: chest non-tender, + wheezing Cardiovascular: regular rate, rhythm, no edema Abdomen: normal bowel sounds, non tender Extremities: normal range of motion 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, no motor/sensory deficits, oriented x 3 Skin: normal color Lymphatic: no adenopathy Laboratory Results Last 24 Hours Test 06/01/16 14:23 06/01/16 15:10 06/01/16 15:36 06/01/16 15:43 Bedside Glucose 124 mg/dl Urine Color YELLOW Urine Appearance CLEAR Urine pH 7.0 Urine Specific [place] 1.006 Urine Protein NEG Urine Glucose (UA) NEG Urine Ketones NEG Urine Occult Blood NEG Urine Nitrite NEG Urine Bilirubin NEG Urine Urobilinogen NEG Urine Leukocyte Esterase NEG Urine WBC (Auto) 1-5 /hpf Urine RBC (Auto) 0-4 /hpf Urine Hyaline Casts (Auto) 0 /lpf Urine Epithelial Cells (Auto) 0-5 /lpf Urine Bacteria (Auto) NEG Influenza Type A Antigen Neg for Influ A Influenza Type B Antigen Neg for Influ B White Blood Count 12.38 K/uL Red Blood Count 4.59 M/uL Hemoglobin 14.3 g/dL Hematocrit 41.1 % Mean Corpuscular Volume 89.5 fL Mean Corpuscular Hemoglobin 31.2 pg Mean Corpuscular Hemoglobin Concent 34.8 g/dl Platelet Count 187 K/uL Mean Platelet Volume 8.6 fL Neutrophils (%) (Auto) 85.1 % Lymphocytes (%) (Auto) 5.2 % Monocytes (%) (Auto) 9.2 % Eosinophils (%) (Auto) 0.2 % Basophils (%) (Auto) 0.0 % Neutrophils # (Auto) 10.54 K/uL Lymphocytes # (Auto) 0.64 K/uL Monocytes # (Auto) 1.14 K/uL Eosinophils # (Auto) 0.02 K/uL Basophils # (Auto) 0.00 K/uL RDW Standard Deviation 42.7 fL RDW Coefficient of Variation 13.1 % Immature Granulocyte % (Auto) 0.3 % Immature Granulocyte # (Auto) 0.04 K/uL Prothrombin Time 10.5 SECONDS Prothromb Time International Ratio 1.0 Activated Partial Thromboplast Time 24.6 SECONDS Partial Thromboplastin Ratio 0.9 Sodium Level 138 mmol/L Potassium Level 4.0 mmol/L Chloride Level 104 mmol/L Carbon Dioxide Level 21 mmol/L Anion Gap 13.0 mmol/L Blood Urea Nitrogen 14 mg/dl Creatinine 1.30 mg/dl Est Creatinine Clear Calc Drug Dose 77.6 ml/min Estimated GFR () 69.7 Estimated GFR (Non- 60.1 BUN/Creatinine Ratio 10.8 Random Glucose 124 mg/dl Bedside Lactic Acid Venous 2.48 mmol/L Calcium Level 8.6 mg/dl Total Bilirubin 0.3 mg/dl Aspartate Amino Transf (AST/SGOT) 22 U/L Alanine Aminotransferase (ALT/SGPT) 15 U/L Alkaline Phosphatase 76 U/L Total Protein 6.4 gm/dl Albumin 3.2 gm/dl Globulin 3.2 gm/dl Albumin/Globulin Ratio 1.0 Thyroid Stimulating Hormone (TSH) 1.610 uIu/ml Free Thyroxine 1.05 ng/dl Valproic Acid (Depakene) Level 78 mcg/ml Test 06/01/16 19:28 06/01/16 20:59 06/01/16 23:07 06/02/16 00:44 Bedside Glucose 83 mg/dl 147 mg/dl 93 mg/dl Lactic Acid Level 1.3 mmol/L Test 06/02/16 05:15 06/02/16 06:59 06/02/16 07:12 Bedside Glucose 111 mg/dl 138 mg/dl White Blood Count 14.04 K/uL Red Blood Count 4.52 M/uL Hemoglobin 13.7 g/dL Hematocrit 41.4 % Mean Corpuscular Volume 91.6 fL Mean Corpuscular Hemoglobin 30.3 pg Mean Corpuscular Hemoglobin Concent 33.1 g/dl Platelet Count 191 K/uL Mean Platelet Volume 8.7 fL Neutrophils (%) (Auto) 91.2 % Lymphocytes (%) (Auto) 7.0 % Monocytes (%) (Auto) 1.4 % Eosinophils (%) (Auto) 0.0 % Basophils (%) (Auto) 0.1 % Neutrophils # (Auto) 12.81 K/uL Lymphocytes # (Auto) 0.98 K/uL Monocytes # (Auto) 0.20 K/uL Eosinophils # (Auto) 0.00 K/uL Basophils # (Auto) 0.01 K/uL RDW Standard Deviation 44.1 fL RDW Coefficient of Variation 13.2 % Immature Granulocyte % (Auto) 0.3 % Immature Granulocyte # (Auto) 0.04 K/uL Prothrombin Time 10.8 SECONDS Prothromb Time International Ratio 1.0 Activated Partial Thromboplast Time 28.8 SECONDS Partial Thromboplastin Ratio 1.1 Sodium Level 138 mmol/L Potassium Level 4.4 mmol/L Chloride Level 102 mmol/L Carbon Dioxide Level 27 mmol/L Anion Gap 9.0 mmol/L Blood Urea Nitrogen 10 mg/dl Creatinine 1.20 mg/dl Est Creatinine Clear Calc Drug Dose 84.2 ml/min Estimated GFR () 76.8 Estimated GFR (Non- 66.3 BUN/Creatinine Ratio 8.4 Random Glucose 147 mg/dl Calcium Level 9.0 mg/dl Magnesium Level 2.3 mg/dl Total Bilirubin 0.4 mg/dl Direct Bilirubin 0.1 mg/dl Aspartate Amino Transf (AST/SGOT) 17 U/L Alanine Aminotransferase (ALT/SGPT) 18 U/L Alkaline Phosphatase 67 U/L Total Protein 6.5 gm/dl Albumin 3.2 gm/dl Assessment and Plan Patient is a 56 y.o.M who was admitted for SOB and found to have a pneumonia Bilateral Hospital acquired pneumonia with sepsis - cont Zosyn 3.375 mg IV every 8 hours, levofloxacin 500 mg IV every 24 hours, guaifenesin extended release 600 mg by mouth twice a day, - d/c vancomycin - Xopenex that for nebulizers every 6 hours while awake and every 2 hours when necessary, -decreased Solu-Medrol 40 mg IV every 12 hours. - Nasal cannula 2 L O2, titrated to keep pulse ox greater than or equal to 92%. - check echocardiogram Bipolar disorder/schizophrenia -continue buspirone 30 mg by mouth twice a day, clonazepam 1 mg, 2 mg Depakote ER, loxapine succinate 50 mg by mouth at bedtime, Geodon Hypothyroidism - continue levothyroxine sodium 105 g by mouth daily. Hypertension -continue lisinopril 10 mg -hold furosemide 40 mg by mouth daily, Hypercholesterolemia -continue pravastatin 20 mg by mouth at bedtime. GERD -pantoprazole 40 mg by mouth daily. Allergic rhinitis -continue montelukast sodium 10 mg by mouth at bedtime and loratadine 10 mg by mouth daily
[2016-06-02] MEDS: DIVALPROEX 500 MG EXTENDED RELEASE TAB PO SCH ×2 (12:36→21:19)
--- NOTE | 2016-06-02 15:41 | ECHOCARDIOGRAM REPORT ---
*NOTICE TO RECEIVING LIBERTARIAN AGENCY This information is strictly Confidential and protected under [place] law. [place] law prohibits you from making any further disclosure of this information unless further disclosure is expressly permitted by the written consent of the person to whom it pertains or is authorized by law. A general authorization for the release of medical or other information is not sufficient for this purpose. Hospital accepts no responsibility if the information is made available to any other person, INCLUDING THE PATIENT. Interpretation Summary * Name: LOU COLON Study Date: 06/02/2016 03:17 PM BP: 136/89 mmHg * Patient Location: C.2T\S\S241\S\1 HR: 100 * : 1960 (M/d/yyyy) Gender: Male Height: 70 in * Age: 56 yrs Ethnicity: CA Weight: 247 lb * Ordering Physician: Kamryn Interiano * Referring Physician: Self, Referred * Performed By: Leigh Springer RCS * * Reason For Study: CHF * BSA: 2.3 m2 * -- Conclusions -- * Compared with 01/23/10 study, no significant change. * The left ventricle is normal in size. * The left ventricle is hyperdynamic. * Ejection Fraction = 65-70%. * The left ventricular wall motion is normal. * There is moderate concentric left ventricular hypertrophy. * Grade I diastolic dysfunction, (abnormal relaxation pattern). * No significant valvular disease. Procedure Details * A complete two-dimensional transthoracic echocardiogram was performed (2D, M-mode, Doppler and color flow Doppler). Left Ventricle * The left ventricle is normal in size. * There is moderate concentric left ventricular hypertrophy. * Ejection Fraction = 65-70%. * The left ventricle is hyperdynamic. * The left ventricular wall motion is normal. Right Ventricle * The right ventricle is normal in size and function. * There is normal right ventricular wall thickness. * The right ventricular systolic function is normal. Atria * The left atrial size is normal. * Right atrial size is normal. * The interatrial septum is intact with no evidence for an atrial septal defect. Mitral Valve * The mitral valve is normal in structure and function. * There is no mitral valve stenosis. * There is no mitral regurgitation noted. Tricuspid Valve * The tricuspid valve is normal in structure and function. * There is trace tricuspid regurgitation. Aortic Valve * The aortic valve is normal in structure and function. * No aortic regurgitation is present. Pulmonic Valve * The pulmonic valve is normal in structure and function. * There is no pulmonic valvular regurgitation. Great Vessels * The aortic root is normal size. * No obvious dissection could be visualized. * The pulmonary artery is normal size. Pericardium/Pleural * There is no pericardial effusion. Left Ventricular Diastolic Function * Grade I diastolic dysfunction, (abnormal relaxation pattern). MMode 2D Measurements and Calculations IVSd 1.8 cm IVSs 2.3 cm LVIDd 5.3 cm LVIDs 2.6 cm LVPWd 1.3 cm LVPWs 1.5 cm IVS/LVPW 1.5 FS 51.0 % EDV(Teich) 132.7 ml ESV(Teich) 24.1 ml EF(Teich) 81.9 % EDV(cubed) 145.1 ml ESV(cubed) 17.1 ml EF(cubed) 88.2 % % IVS thick 26.2 % % LVPW thick 18.5 % LV mass(C)d 362.3 grams LV mass(C)dI 158.7 grams/m\S\2 LV mass(C)s 201.6 grams LV mass(C)sI 88.3 grams/m\S\2 SV(Teich) 108.6 ml SI(Teich) 47.6 ml/m\S\2 SV(cubed) 128.0 ml SI(cubed) 56.0 ml/m\S\2 Ao root diam 4.3 cm Ao root area 14.5 cm\S\2 ACS 2.0 cm LA dimension 3.0 cm LA/Ao 0.70 LVOT diam 1.8 cm LVOT area 2.7 cm\S\2 LVAd ap4 36.1 cm\S\2 LVLd ap4 8.9 cm EDV(MOD-sp4) 120.3 ml EDV(sp4-el) 125.0 ml LVAs ap4 18.6 cm\S\2 LVLs ap4 7.1 cm ESV(MOD-sp4) 41.1 ml ESV(sp4-el) 41.2 ml EF(MOD-sp4) 65.9 % EF(sp4-el) 67.0 % LVAd ap2 34.8 cm\S\2 LVLd ap2 8.9 cm EDV(MOD-sp2) 112.5 ml EDV(sp2-el) 114.7 ml LVAs ap2 16.7 cm\S\2 LVLs ap2 6.8 cm ESV(MOD-sp2) 36.0 ml ESV(sp2-el) 34.7 ml EF(MOD-sp2) 68.0 % EF(sp2-el) 69.8 % LVLd %diff 0.82 % EDV(MOD-bp) 117.5 ml LVLs %diff -5.13 % ESV(MOD-bp) 38.9 ml EF(MOD-bp) 66.9 % SV(MOD-sp4) 79.3 ml SI(MOD-sp4) 34.7 ml/m\S\2 SV(MOD-sp2) 76.5 ml SI(MOD-sp2) 33.5 ml/m\S\2 SV(MOD-bp) 78.6 ml SI(MOD-bp) 34.4 ml/m\S\2 SV(sp4-el) 83.8 ml SI(sp4-el) 36.7 ml/m\S\2 SV(sp2-el) 80.0 ml SI(sp2-el) 35.1 ml/m\S\2 Doppler Measurements and Calculations MV E max hannah 59.9 cm/sec MV A max hannah 97.1 cm/sec MV E/A 0.62 MV P1/2t max hannah 97.7 cm/sec MV P1/2t 42.5 msec MVA(P1/2t) 5.2 cm\S\2 MV dec slope 672.5 cm/sec\S\2 MV dec time 0.35 sec Ao V2 max 169.5 cm/sec Ao max PG 11.5 mmHg Ao max PG (full) 3.0 mmHg SANCHEZ(V,A) 2.3 cm\S\2 SANCHEZ(V,D) 2.3 cm\S\2 LV V1 max PG 8.5 mmHg LV V1 max 145.5 cm/sec PA V2 max 153.0 cm/sec PA max PG 9.4 mmHg
[2016-06-02] MEDS: DIVALPROEX 250 MG EXTENDED REL TAB PO SCH (21:18)
[2016-06-02] MEDS: MONTELUKAST SOD 10 MG TAB PO SCH ×2 (21:18)
[2016-06-02] MEDS: LEVOFLOXACIN / D5W 500 MG in PREMIXED IN D5W 100 ML IV SCH (21:20)
[2016-06-03] VITALS (10 sets, daily range): BP systolic 136–164; BP diastolic 81–94; PULSE 76–100; TEMP 36.3–36.8; O2SAT 92–97
[2016-06-03] MEDS: LEVALBUTEROL 1.25MG/0.5ML NEB INH SCH ×4 (02:14→19:15)
[2016-06-03] MEDS: IPRATROPIUM BROMIDE NEB SOLN 0.02% 2.5 ML VIAL INH SCH ×2 (02:14→07:13)
[2016-06-03] MEDS: LEVOTHYROXINE 175 MCG TAB PO SCH (05:34)
[2016-06-03 07:28] LABS: BASO % 0.1 %; BASO ABS # 0.01 K/uL (0-0.2); COMPLETE YES; HEMATOCRIT 40.6 % (42-52); IG% 0.4 %; LYMPH % 10.3 %; LYMPH ABS # 1.72 K/uL (1.2-3.4); MEAN CORPUSCULAR HEMOGLOBIN 30.3 pg (25-34); MEAN CORPUSCULAR HGB CONC 33.3 g/dl (32-36); MEAN PLATELET VOLUME 8.8 fL (7.4-10.4); MONO % 6.6 %; NEUT % 82.6 %; PLATELET COUNT 209 K/uL (130-400); RED BLOOD COUNT 4.46 M/uL (4.7-6.1); WHITE BLOOD COUNT 16.64 K/uL (4.8-10.8)
[2016-06-03 07:38] LABS: PROTHROMBIN TIME (PATIENT) 10.7 SECONDS (9.0-12.0)
[2016-06-03] MEDS: PIPERACILL/TAZOBAC IV 3.375 GM in DEXTROSE 5% 100ML IV SCH (07:43)
[2016-06-03] MEDS: METHYLPREDNISOLONE IV 40 MG in SYRINGE 0 ML IV SCH (07:45)
[2016-06-03] MEDS: ASPIRIN 81 MG ECTAB PO SCH (07:47)
[2016-06-03] MEDS: BuPROPion XL 150 MG TABCR PO SCH (07:47)
[2016-06-03] MEDS: MAGNESIUM OXIDE 400 MG TAB PO SCH (07:48)
[2016-06-03] MEDS: BusPIRone 15 MG TAB PO SCH ×2 (07:48→20:49)
[2016-06-03] MEDS: ZIPRASIDONE 80 MG CAP PO SCH ×2 (07:49→20:52)
[2016-06-03] MEDS: PANTOprazole SOD 40 MG TAB PO SCH (07:49)
[2016-06-03] MEDS: LISINOPRIL 10 MG TAB PO SCH (07:49)
[2016-06-03] MEDS: POTASSIUM CHLORIDE 20 MEQ TABCR PO SCH (07:49)
[2016-06-03] MEDS: LACTOBACILLUS ACIDOPHILUS (FLORANEX) TAB PO SCH ×3 (07:50→16:31)
[2016-06-03] MEDS: POLYETHYLENE (MIRALAX) 17 GM PACK PO SCH ×2 (07:50→08:27)
[2016-06-03] MEDS: LORATADINE 10 MG TAB PO SCH (07:51)
[2016-06-03] MEDS: RANITIDINE HCL 150 MG TAB PO SCH ×2 (07:51→20:45)
[2016-06-03 08:04] LABS: ALT/SGPT 14 U/L (12-78); BLOOD UREA NITROGEN 9 mg/dl (7-18); BUN/CREATININE RATIO 7.8 (10-20); CALCIUM 8.7 mg/dl (8.5-10.1); CARBON DIOXIDE 25 mmol/L (21-32); CHLORIDE 100 mmol/L (98-107); GLUCOSE 169 mg/dl (70-99); MAGNESIUM 2.1 mg/dl (1.8-2.4); POTASSIUM 4.6 mmol/L (3.5-5.1); SODIUM 135 mmol/L (136-145)
[2016-06-03 08:07] LABS: ALKALINE PHOSPHATASE 72 U/L (45-117); AST/SGOT 10 U/L (15-37)
[2016-06-03] MEDS: DIVALPROEX 500 MG EXTENDED RELEASE TAB PO SCH ×2 (11:43→20:46)
[2016-06-03] MEDS: CLONAZEPAM 1 MG TAB PO SCH ×2 (11:46→21:05)
[2016-06-03] MEDS ORDERED: VANCOMYCIN TROUGH SCH (13:30)
--- NOTE | 2016-06-03 14:08 | Hospitalist Progress Note ---
Hospitalist Progress Note Date of Service Jun 03, 2016. Subjective Pt evaluation today including: conversation w/ patient, physical exam, chart review, lab review, review of studies, review of inpatient medication list Constitutional: No fever Eyes: No worsening of vision ENT: No hearing loss Respiratory: + shortness of breath, No cough Cardiovascular: No chest pain, No edema Abdomen: No constipation, No pain, No vomiting Musculoskeletal: No joint pain Male : No dysuria, No incontinence, No slowing stream Neurologic: No memory loss Psychiatric: No depression symptoms Heme: No abnormal bleeding/bruising Endo: No fatigue Medications Current Inpatient Medications Medications (Trade) Dose Ordered Sig/Daniel Route Start Time Stop Time Status Last Admin Dose Admin Nitroglycerin (Nitrostat Tab) 0.4 mg UD PRN SL 06/01/16 20:30 07/01/16 20:29 Aspirin (Ecotrin Tab) 81 mg DAILY PO 06/02/16 09:00 07/02/16 08:59 06/03/16 07:47 81 MG Bupropion HCl (Wellbutrin-Xl Tab) 150 mg QAM PO 06/02/16 09:00 07/02/16 08:59 06/03/16 07:47 150 MG Clonazepam (Klonopin Tab) 1 mg QDL PO 06/02/16 11:00 07/02/16 10:59 06/03/16 11:46 1 MG Clonazepam (Klonopin Tab) 2 mg HS PO 06/01/16 21:00 07/01/16 20:59 06/02/16 21:20 2 MG Divalproex Sodium (Depakote Extended Rel Tab) 250 mg HS PO 06/01/16 21:00 07/01/16 20:59 06/02/16 21:18 250 MG Divalproex Sodium (Depakote Extended Rel Tab) 2,000 mg DAILY@1200 PO 06/02/16 12:00 07/02/16 11:59 06/03/16 11:43 2,000 MG Fluticasone Propionate (Flonase Nasal [place]) 1 sprays DAILY PRN NA 06/01/16 20:30 07/01/16 20:29 Levothyroxine Sodium (Synthroid Tab) 175 mcg DAILYBB PO 06/02/16 06:00 07/02/16 05:59 06/03/16 05:34 175 MCG Lisinopril (Zestril Tab) 10 mg DAILY PO 06/02/16 09:00 07/02/16 08:59 06/03/16 07:49 10 MG Loratadine (Claritin Tab) 10 mg DAILY PO 06/02/16 09:00 07/02/16 08:59 06/03/16 07:51 10 MG Magnesium Oxide (Mag-Ox Tab) 400 mg DAILY PO 06/02/16 09:00 07/02/16 08:59 06/03/16 07:48 400 MG Montelukast Sodium (Singulair Tab) 10 mg HS PO 06/01/16 21:00 07/01/16 20:59 06/02/16 21:18 10 MG Potassium Chloride (Klor-Con Tab) 40 meq DAILY PO 06/02/16 09:00 07/02/16 08:59 06/03/16 07:49 40 MEQ Pravastatin Sodium (Pravachol Tab) 20 mg HS PO 06/01/16 21:00 07/01/16 20:59 06/02/16 21:18 20 MG Ranitidine HCl (zANTac TAB) 150 mg BID PO 06/01/16 21:00 07/01/16 20:59 06/03/16 07:51 150 MG Ziprasidone (Geodon Cap) 160 mg HS PO 06/01/16 21:00 07/01/16 20:59 06/02/16 21:19 160 MG Miscellaneous Information (Order Awaiting Action) 1 ea QS N/A 06/01/16 22:00 07/01/16 21:59 Buspirone HCl (BusPAR TAB) 30 mg BID PO 06/01/16 21:00 07/01/16 20:59 06/03/16 07:48 30 MG Pantoprazole Sodium (Protonix Tab) 40 mg QAM PO 06/02/16 09:00 07/02/16 08:59 06/03/16 07:49 40 MG Polyethylene (Miralax Powder Packet) 17 gm DAILY PO 06/01/16 21:00 07/01/16 20:59 06/03/16 08:27 17 GM Polyethylene (Miralax Powder Packet) 17 gm QAM PRN PO 06/01/16 20:30 07/01/16 20:29 Ziprasidone (Geodon Cap) 80 mg QAM PO 06/02/16 09:00 07/02/16 08:59 06/03/16 07:49 80 MG Lorazepam (Ativan Inj) 0.5 mg Q4H PRN IV 06/01/16 20:45 07/01/16 20:44 Lorazepam (Ativan Inj) 1 mg Q4H PRN IV 06/01/16 20:45 07/01/16 20:44 Acetaminophen (Tylenol Tab) 650 mg Q4H PRN PO 06/01/16 20:45 07/01/16 20:44 Magnesium Hydroxide (Milk Of Magnesia Susp) 30 ml Q6H PRN PO 06/01/16 20:45 07/01/16 20:44 Diphenhydramine HCl (Benadryl Inj) 25 mg Q4H PRN IV 06/01/16 20:45 07/01/16 20:44 Al Hydrox/Mg Hydrox/ Simethicone 15 ml 15 ml Q4H PRN PO 06/01/16 20:45 07/01/16 20:44 Promethazine HCl/ Sodium Chloride (Phenergan Inj/ Nss 50ml) 50.5 ml @ 202 mls/hr Q4H PRN IV 06/01/16 20:45 07/01/16 20:44 Zolpidem Tartrate (Ambien Tab) 5 mg HSZ PRN PO 06/01/16 20:45 07/01/16 20:44 Ondansetron HCl (Zofran Inj) 4 mg Q6H PRN IV 06/01/16 20:45 07/01/16 20:44 Morphine Sulfate 2 mg 2 mg Q2H PRN IV 06/01/16 20:45 06/15/16 20:44 Levofloxacin/Prmx (Levaquin / D5W/ Premixed D5W) 100 ml @ 100 mls/hr Q24H IV 06/01/16 21:30 06/08/16 21:29 06/02/16 21:20 100 MLS/HR Lactobacillus Acidophilus (Floranex Tab) 4 tab TIDM PO 06/02/16 07:30 07/02/16 07:59 06/03/16 11:43 4 TAB Piperacillin Sod/ Tazobactam Sod (Consult) 1 ea UD PRN N/A 06/01/16 21:15 07/01/16 21:14 Ipratropium [place] (Atrovent 0.02% 0.5MG/2.5ML Neb) 0.5 mg Q6R INH 06/02/16 03:00 07/02/16 02:59 06/03/16 07:13 0.5 MG Levalbuterol (Xopenex 1.25MG/ 0.5ML Neb) 1.25 mg Q6R INH 06/02/16 03:00 07/02/16 02:59 06/03/16 07:13 1.25 MG Ipratropium [place] (Atrovent 0.02% 0.5MG/2.5ML Neb) 0.5 mg Q2HWA PRN INH 06/01/16 21:30 07/01/16 21:29 06/01/16 23:55 0.5 MG Levalbuterol 0.63 mg 0.63 mg Q2HWA PRN INH 06/01/16 21:30 07/01/16 21:29 06/01/16 23:55 0.63 MG Piperacillin Sod/ Tazobactam Sod/ Dextrose (Zosyn Iv/D5 100ml) 115 ml @ 28.75 mls/ hr Q8@0000,0800,1600 IV 06/02/16 00:00 06/08/16 15:59 06/03/16 07:43 28.75 MLS/HR Divalproex Sodium 1500 mg 1,500 mg HS PO 06/01/16 21:00 07/01/16 20:59 06/02/16 21:19 1,500 MG Methylprednisolone Sodium Succinate/ Syringe (Solu-Medrol IV/ Syringe) 0.64 ml @ 1.5 mls/min Q12H IV 06/02/16 20:00 07/02/16 19:59 06/03/16 07:45 1.5 MLS/MIN Objective Vital Signs Date Time Temp Pulse Resp B/P Pulse Ox O2 Delivery O2 Flow Rate FiO2 06/03/16 11:55 36.5 95 20 148/84 97 Room Air 06/03/16 08:00 92 Room Air 06/03/16 07:57 36.7 87 20 136/89 93 Room Air 06/03/16 07:13 91 18 93 Room Air 06/03/16 04:00 36.6 98 20 144/81 92 Room Air 06/03/16 04:00 Room Air 06/03/16 02:14 98 18 95 Room Air 06/03/16 00:00 Room Air 06/02/16 23:00 36.5 104 20 133/92 97 Room Air 06/02/16 20:00 Room Air 06/02/16 19:42 36.3 109 18 136/79 92 Room Air 06/02/16 19:04 113 16 93 Room Air 06/02/16 16:00 91 Room Air 06/02/16 15:48 104 22 151/92 95 Room Air Physical Exam General Appearance: WD/WN, no apparent distress Eyes: normal inspection ENT: normal ENT inspection, hearing grossly normal Neck: supple, no adenopathy Respiratory/Chest: chest non-tender, + crackles, + wheezing Cardiovascular: regular rate, rhythm, no edema, no murmur Abdomen: normal bowel sounds, non tender, soft, no organomegaly Extremities: normal range of motion, non-tender Neurologic/Psychiatric: order manager II-XII nml as tested, no motor/sensory deficits, alert, oriented x 3 Laboratory Results Last 24 Hours Test 06/03/16 03:25 06/03/16 06:45 06/03/16 06:48 Bedside Glucose 182 mg/dl White Blood Count 16.64 K/uL Red Blood Count 4.46 M/uL Hemoglobin 13.5 g/dL Hematocrit 40.6 % Mean Corpuscular Volume 91.0 fL Mean Corpuscular Hemoglobin 30.3 pg Mean Corpuscular Hemoglobin Concent 33.3 g/dl Platelet Count 209 K/uL Mean Platelet Volume 8.8 fL Neutrophils (%) (Auto) 82.6 % Lymphocytes (%) (Auto) 10.3 % Monocytes (%) (Auto) 6.6 % Eosinophils (%) (Auto) 0.0 % Basophils (%) (Auto) 0.1 % Neutrophils # (Auto) 13.75 K/uL Lymphocytes # (Auto) 1.72 K/uL Monocytes # (Auto) 1.10 K/uL Eosinophils # (Auto) 0.00 K/uL Basophils # (Auto) 0.01 K/uL RDW Standard Deviation 43.5 fL RDW Coefficient of Variation 13.0 % Immature Granulocyte % (Auto) 0.4 % Immature Granulocyte # (Auto) 0.06 K/uL Sodium Level 135 mmol/L Potassium Level 4.6 mmol/L Chloride Level 100 mmol/L Carbon Dioxide Level 25 mmol/L Anion Gap 10.0 mmol/L Blood Urea Nitrogen 9 mg/dl Creatinine 1.10 mg/dl Est Creatinine Clear Calc Drug Dose 91.3 ml/min Estimated GFR () 85.3 Estimated GFR (Non- 73.6 BUN/Creatinine Ratio 7.8 Random Glucose 169 mg/dl Calcium Level 8.7 mg/dl Magnesium Level 2.1 mg/dl Total Bilirubin 0.2 mg/dl Direct Bilirubin < 0.1 mg/dl Aspartate Amino Transf (AST/SGOT) 10 U/L Alanine Aminotransferase (ALT/SGPT) 14 U/L Alkaline Phosphatase 72 U/L Total Protein 6.4 gm/dl Albumin 2.9 gm/dl Prothrombin Time 10.7 SECONDS Prothromb Time International Ratio 1.0 Activated Partial Thromboplast Time 26.1 SECONDS Partial Thromboplastin Ratio 1.0 Assessment and Plan Patient is a 56 y.o.M who was admitted for SOB and found to have a pneumonia Bilateral Hospital acquired pneumonia with sepsis - d/c zosyn -continue levaquin day #07/03 - Xopenex that for nebulizers every 6 hours while awake and every 2 hours when necessary, -decreased Solu-Medrol 40 mg IV daily - Nasal cannula 2 L O2, titrated to keep pulse ox greater than or equal to 92%. - echo reviewed Bipolar disorder/schizophrenia -continue buspirone 30 mg by mouth twice a day, clonazepam 1 mg, 2 mg Depakote ER, loxapine succinate 50 mg by mouth at bedtime, Geodon Hypothyroidism - continue levothyroxine sodium 105 g by mouth daily. Hypertension -continue lisinopril 10 mg -hold furosemide 40 mg by mouth daily, Hypercholesterolemia -continue pravastatin 20 mg by mouth at bedtime. GERD -pantoprazole 40 mg by mouth daily. Allergic rhinitis -continue montelukast sodium 10 mg by mouth at bedtime and loratadine 10 mg by mouth daily Disposition- home in am
[2016-06-03] MEDS: FLUTICASONE/SALMETEROL (ADVAIR) 500/50 INH 14 PUFF INH SCH (20:43)
[2016-06-03] MEDS: DIVALPROEX 250 MG EXTENDED REL TAB PO SCH (20:47)
[2016-06-03] MEDS: PRAVASTATIN SOD 20 MG TAB PO SCH (20:50)
[2016-06-03] MEDS: MONTELUKAST SOD 10 MG TAB PO SCH (20:52)
[2016-06-03] MEDS: LEVOFLOXACIN / D5W 500 MG in PREMIXED IN D5W 100 ML IV SCH (20:56)
[2016-06-03] MEDS ORDERED: BUDESONIDE/FORMOTEROL FUMARATE 80/4.5 60 PUFFS/INHALER INH SCH (21:00)
[2016-06-04] VITALS: BP 138/93; PULSE 91; TEMP 36.6; O2SAT 100
[2016-06-04 02:15] VITALS: PULSE 95; O2SAT 95
[2016-06-04] MEDS: LEVALBUTEROL 1.25MG/0.5ML NEB INH SCH ×2 (02:15→06:57)
[2016-06-04 03:55] VITALS: BP 107/82; PULSE 89; TEMP 36.6; O2SAT 95
[2016-06-04] MEDS: LEVOTHYROXINE 175 MCG TAB PO SCH (06:27)
[2016-06-04 06:57] VITALS: PULSE 71; O2SAT 92
[2016-06-04 06:58] LABS: COMPLETE YES; HEMATOCRIT 40.3 % (42-52); IG% 0.4 %; LYMPH % 25.6 %; LYMPH ABS # 4.68 K/uL (1.2-3.4); MEAN CELL VOLUME 90.6 fL (80-100); MEAN CORPUSCULAR HEMOGLOBIN 30.3 pg (25-34); MEAN CORPUSCULAR HGB CONC 33.5 g/dl (32-36); MEAN PLATELET VOLUME 8.7 fL (7.4-10.4); MONO % 8.4 %; NEUT % 65.6 %; PLATELET COUNT 217 K/uL (130-400); RED BLOOD COUNT 4.45 M/uL (4.7-6.1); WHITE BLOOD COUNT 18.26 K/uL (4.8-10.8)
[2016-06-04 07:18] LABS: PROTHROMBIN TIME (PATIENT) 10.9 SECONDS (9.0-12.0)
[2016-06-04 07:22] LABS: ALT/SGPT 14 U/L (12-78); BLOOD UREA NITROGEN 13 mg/dl (7-18); BUN/CREATININE RATIO 11.5 (10-20); CALCIUM 8.4 mg/dl (8.5-10.1); CARBON DIOXIDE 27 mmol/L (21-32); CHLORIDE 100 mmol/L (98-107); GLUCOSE 113 mg/dl (70-99); MAGNESIUM 2.1 mg/dl (1.8-2.4); POTASSIUM 4.4 mmol/L (3.5-5.1); SODIUM 138 mmol/L (136-145)
[2016-06-04 07:25] LABS: ALKALINE PHOSPHATASE 75 U/L (45-117); AST/SGOT 8 U/L (15-37)
[2016-06-04 07:37] VITALS: BP 118/78; PULSE 81; TEMP 36.4; O2SAT 91
[2016-06-04] MEDS: ASPIRIN 81 MG ECTAB PO SCH (07:39)
[2016-06-04] MEDS: LORATADINE 10 MG TAB PO SCH (07:40)
[2016-06-04] MEDS: LACTOBACILLUS ACIDOPHILUS (FLORANEX) TAB PO SCH ×2 (07:40→11:16)
[2016-06-04] MEDS: PANTOprazole SOD 40 MG TAB PO SCH (07:41)
[2016-06-04] MEDS: POTASSIUM CHLORIDE 20 MEQ TABCR PO SCH (07:41)
[2016-06-04] MEDS: LISINOPRIL 10 MG TAB PO SCH (07:41)
[2016-06-04] MEDS: BuPROPion XL 150 MG TABCR PO SCH (07:41)
[2016-06-04] MEDS: BusPIRone 15 MG TAB PO SCH (07:42)
[2016-06-04] MEDS: MAGNESIUM OXIDE 400 MG TAB PO SCH (07:42)
[2016-06-04] MEDS: RANITIDINE HCL 150 MG TAB PO SCH (07:43)
[2016-06-04] MEDS: FLUTICASONE/SALMETEROL (ADVAIR) 500/50 INH 14 PUFF INH SCH (07:43)
[2016-06-04] MEDS: ZIPRASIDONE 80 MG CAP PO SCH (07:43)
[2016-06-04] MEDS: POLYETHYLENE (MIRALAX) 17 GM PACK PO SCH (07:49)
[2016-06-04] MEDS ORDERED: METHYLPREDNISOLONE IV 40 MG in SYRINGE 0 ML IV SCH (09:00)
[2016-06-04] MEDS ORDERED: PRED20TA PO (10:16)
[2016-06-04] MEDS ORDERED: LEVO1TAB33 PO (10:16)
--- NOTE | 2016-06-04 10:20 | Discharge Instructions ---
Discharge Instructions Admission Reason for Admission: Pneumonia, Sepsis Discharge Discharge Diagnosis / Problem: Health Care Associated Pneumonia Discharge Goals Goal(s): Improve function, Increase independence, Improve disease control Activity Recommendations Activity Limitations: resume your previous activity Lifting Limitations: none Exercise/Sports Limitations: none Shower/Bathe: no limitations . Instructions / Follow-Up Instructions / Follow-Up Medications: - LEVAQUIN: 500mg daily x 7 more days, start taking tomorrow morning, received a dose this morning - PREDNISONE: 40mg (2 tablets) daily for 5 more days then stop, no need for taper - ALBUTEROL: can use scheduled four times a day for the next 5 days to help keep airways open and move out mucous FOLLOW UP please schedule a hospital follow up with Dr. Carrillo (or his PA) within 7-10 days, very important for transition of care from hospital Current Hospital Diet Patient's current hospital diet: Regular Diet Discharge Diet Recommended Diet: Regular Diet Procedures Procedures Performed: none Pending Studies Studies pending at discharge: no Laboratory Results Last Resulted CBC 06/04/16 06:33 Red Blood Count 4.45, Mean Corpuscular Volume 90.6, Mean Corpuscular Hemoglobin 30.3, Mean Corpuscular Hemoglobin Concent 33.5, Mean Platelet Volume 8.7, Neutrophils (%) (Auto) 65.6, Lymphocytes (%) (Auto) 25.6, Monocytes (%) (Auto) 8.4, Eosinophils (%) (Auto) 0.0, Basophils (%) (Auto) 0.0, Neutrophils # (Auto) 11.96, Lymphocytes # (Auto) 4.68, Monocytes # (Auto) 1.54, Eosinophils # (Auto) 0.00, Basophils # (Auto) 0.00 Last Resulted BMP 06/04/16 06:33 Hemoglobin A1c Test 03/28/16 06:12 Range/Units Estimated Average Glucose 108 mg/dl Hemoglobin A1c 5.4 4.5-5.6 % Medical Emergencies . Who to Call and When: Medical Emergencies: If at any time you feel your situation is an emergency, please call 911 immediately. . Non-Emergent Contact Non-Emergency issues call your: Primary Care Provider Call Non-Emergent contact if: you have a fever, you have any medication questions . . "Provider Documentation" section prepared by Az Arellano. VTE Core Measure Inpt VTE Proph given/why not?: SCD's
[2016-06-04 10:45] VITALS: BP 118/78; PULSE 81; TEMP 36.4; O2SAT 91
[2016-06-04] MEDS ORDERED: LEVOFLOXACIN 250 MG TAB PO ONE (11:00)
[2016-06-04] MEDS: DIVALPROEX 500 MG EXTENDED RELEASE TAB PO SCH (11:16)
[2016-06-04] MEDS: CLONAZEPAM 1 MG TAB PO SCH (11:16)
--- NOTE | 2016-06-04 13:37 | Discharge Summary ---
Discharge Summary Admission Date: Jun 01, 2016 at 19:21 Discharge Date: Jun 04, 2016 Discharge Disposition: Home Principal Diagnosis: Pneumonia Problems/Secondary Diagnoses: COPD exacerbation Immunizations: Have You Had Influenza Vaccine: Yes Influenza Vaccine Date: Mar 03, 2013 History of Tetanus Vaccine?: UTD History of Pneumococcal: Yes Pneumococcal Date: Feb 28, 2008 History of Hepatitis B Vaccine: No Procedures: none Consultations: none Medication Reconciliation New Medications: Levofloxacin (Levaquin) 500 Mg Tab 500 MG PO DAILY for 7 Days, #7 TAB Prednisone (Prednisone) 20 Mg Tab 2 TAB PO DAILY for 5 Days, #10 TAB Continued Medications: Albuterol Hfa (Ventolin Hfa) 200 Puffs/61729 Mcg Aers 2 PUFFS INH DAILY, #1 INHALER Aspirin (Aspirin EC Low Dose) 81 Mg Ectab 81 MG PO DAILY Bupropion Hcl (Bupropion Hcl Xl) 150 Mg Tab 1 TAB PO QAM for 30 Days, #30 TAB 2 Refills Buspirone Hcl (Buspirone Hcl) 30 Mg Tab 30 MG PO BID Clonazepam (Klonopin) 1 Mg Tab 1 MG PO QDL Clonazepam (Klonopin) 1 Mg Tab 2 TAB PO HS, TAB Divalproex Sodium (Depakote Er) 250 Mg Tab 250 MG PO HS TAKE WITH 1500MG = 1750 MG HS Divalproex Sodium (Depakote Er) 500 Mg Tab 2000 MG PO UD, 2 Refills 4 TABLETS IN THE AFTERNOON Divalproex Sodium (Depakote Er) 500 Mg Tab 1500 MG PO UD, 2 Refills TAKE 3 TABLETS WITH DINNER Divalproex Sodium (Divalproex Sodium ER) 500 Mg Tabcr 1750 MG PO HS Fluticasone Propionate (Nasal) (Flonase Allergy Relief Ch) 50 Mcg/Act Spr NA DAILY PRN for Nasal Congestion Furosemide (Lasix) 40 Mg Tab 40 MG PO DAILY Levothyroxine Sodium (Levothyroxine Sodium) 175 Mcg Tab 175 MCG PO DAILY Lisinopril (Zestril) 10 Mg Tab 10 MG PO DAILY Loratadine (Claritin) 10 Mg Tab 10 MG PO DAILY, TAB Loxapine Succinate (Loxapine Succinate) 50 Mg Cap 150 MG PO HS Magnesium Oxide (Mag-Ox) 400 Mg Tab 400 MG PO DAILY Montelukast Sodium (Montelukast Sodium) 10 Mg Tab 10 MG PO HS, 3 Refills Omeprazole (Prilosec) 20 Mg Cap 20 MG PO DAILY, CAP Polyethylene Glycol 3350 (Miralax) 1 Pow Pow 17 GM PO DAILY PRN for Constipation, #255 GM Potassium Ext Rel (Klor-Con) 20 Meq Tabcr 40 MEQ PO DAILY, TAB Pravastatin (Pravachol ) 20 Mg Tab 20 MG PO HS, 0 Refills Ranitidine (Zantac) 150 Mg Tab 150 MG PO BID, 0 Refills Ziprasidone Hcl (Geodon) 40 Mg Cap 80 MG PO QAM, CAP Ziprasidone Hcl (Geodon) 80 Mg Cap 160 MG PO HS, CAP Discharge Exam Patient feeling really well today, sitting up in chair all morning, anxious to be discharge. Breathing well, no cough, no fever since time of admission. Discussed the importance of follow up with Dr. Carrillo. He said that he has an appointment in 6 weeks but I told him that it should be sooner. He said that money is an issue for him and that it would limit his ability to make the appointment? He says he will be compliant with the Levaquin and Prednisone and that he has all of his other medications. Review of Systems: Constitutional: No chills, No fatigue, No fever, No problem reported, No sweats, No weakness, No weight loss Eyes: No diplopia, No discharge, No eye pain, No problem reported, No redness, No worsening of vision ENT: No dental problems, No hearing loss, No nasal symptoms, No problem reported, No sore throat, No tinnitus, No trouble swallowing, No unusual epistaxis Respiratory: No cough, No dyspnea at rest, No dyspnea on exertion, No hemoptysis, No problem reported, No shortness of breath, No sputum, No wheezing Cardiovascular: + edema (chronic lymphedema bilaterally), No PND, No chest pain, No claudication, No orthopnea, No palpitations, No problem reported Abdomen: No GI bleeding, No constipation, No diarrhea, No nausea, No pain, No problem reported, No vomiting Musculoskeletal: + joint pain (left knee, limits his mobility, plans to get it fixed in the near future) Genitourinary - Male: No dysuria, No hematuria, No impotence, No lesions, No penile discharge, No problem reported, No urinary frequency, No urinary hesitancy, No urinary incontinence, No urinary retention, No urinary urgency Neurologic: No balance problems, No memory loss, No numbness/tingling, No paralysis, No problem reported, No vertigo, No weakness Endocrine: No excessive thirst, No excessive urination, No fatigue, No problem reported Hematologic / Lymphatic: No abnormal bleeding/bruising, No clotting problems , No night sweats, No problem reported, No swollen lymph nodes Integumentary: No bleeding, No color change, No itch, No new/changing skin lesions, No problem reported, No rash Physical Exam: General Appearance: WD/WN, no apparent distress Eyes: normal inspection, EOMI, sclerae normal ENT: normal ENT inspection, hearing grossly normal, pharynx normal Neck: supple, no adenopathy, no JVD, trachea midline Respiratory/Chest: chest non-tender, lungs clear, normal breath sounds, no respiratory distress, no accessory muscle use Cardiovascular: regular rate, rhythm, no gallop, no JVD, no murmur, normal peripheral pulses Abdomen / GI: normal bowel sounds, non tender, soft, no organomegaly Extremities: normal inspection, no calf tenderness, normal capillary refill , normal range of motion, pelvis stable, + pertinent finding (significant lymphadenopathy bilaterally from knees down) Neurologic/Psychiatric: pattern fitter II-XII nml as tested, no motor/sensory deficits , alert, normal reflexes, oriented x 3, + pertinent finding (limited intelligence, bipolar disorder) Skin: normal color, warm/dry, no rash Lymphatic: no adenopathy Hospital Course Patient is a 56 y.o.M who was admitted for SOB and found to have a pneumonia Bilateral health care associated pneumonia with sepsis, mild COPD exacerbation: sepsis quickly resolved - initially treated with Zosyn and Levaquin, quick response clinically - d/c home on Levaquin 500mg daily x 7 more days for 10 day course - COPD: no wheezing, moving good air, will d/c on Prednisone 40mg daily x 5 days , no taper Bipolar disorder/schizophrenia -continue buspirone 30 mg by mouth twice a day, clonazepam 1 mg, 2 mg Depakote ER, loxapine succinate 50 mg by mouth at bedtime, Geodon - mood appears stable, he is calm, clear thinking, follows with therapy as outpatient Hypothyroidism - continue levothyroxine sodium 105 g by mouth daily. Hypertension -continue lisinopril 10 mg and lasix 40mg daily Hypercholesterolemia -continue pravastatin 20 mg by mouth at bedtime. GERD -pantoprazole 40 mg by mouth daily. Allergic rhinitis -continue montelukast sodium 10 mg by mouth at bedtime and loratadine 10 mg by mouth daily Disposition- home today with close PCP follow up instructed several times to call Dr. Carrillo's office for follow up within 7-10 days Total Time Spent: Greater than 30 minutes This includes examination of the patient, discharge planning, medication reconciliation, and communication with other providers. Discharge Instructions Please refer to the electronic Patient Visit Report (Discharge Instructions) for additional information. Follow-Up Dr. Carrillo in 7-10 days Psychiatry as previously scheduled Additional Copies To ,Yohannes Beyer M.D.
== END 2016-06-04 11:50 | disposition home or self-care (01) | DRG 871 ==
LOC: ENRESERVTM → ENRESERVDT → EDUNIT# 14:14 → C.EDC 14:15 → C.2T 19:21
PROVIDERS: ADMIT Hospitalist; ATTEND Internal Medicine
DX: A41.9 Sepsis, unspecified organism (principal); J18.9 Pneumonia, unspecified organism; J44.0 Chronic obstructive pulmonary disease with (acute) lower respiratory infection; J44.1 Chronic obstructive pulmonary disease with (acute) exacerbation; E03.9 Hypothyroidism, unspecified; I10 Essential (primary) hypertension; E78.00 Pure hypercholesterolemia, unspecified; K21.9 Gastro-esophageal reflux disease without esophagitis; J30.9 Allergic rhinitis, unspecified; F31.9 Bipolar disorder, unspecified; F20.9 Schizophrenia, unspecified; Z79.82 Long term (current) use of aspirin; Z79.899 Other long term (current) drug therapy

== ENCOUNTER → 2016-07-18 | Outpatient (CLI) | payer OTHER ==
[~2016-07-18] MED LIST changes: -ALBUAER19 INH; +CEPH500C PO; +CEPH500C2 PO; +ECON118C TOP; +ESCI10TA17 PO; +FLUO20CA20 PO; +GLC500 PO; +GLC850 PO; +LEVO1TAB33 PO; -LEVO1TAB35 PO; +NAPR-1169 PO; +PRED20TA PO; +SENN1TAB65 PO; +SULF400T7 PO; +SULF800T23 PO; +SYMIN160 INH; +TRAM-10 PO; +VGR50 PO; +VNTHFA/IN INH; +[UNRECOGNIZED DRUG - CODE] PO
== END | disposition home or self-care (01) ==
LOC: C.RDSM 15:53
PROVIDERS: ATTEND Orthopaedic Surgery Sports Medicine
DX: M25.562 Pain in left knee (principal)

== ENCOUNTER 2016-07-20 01:58 | Emergency (ER) | payer OTHER ==
[~2016-07-20] VITALS: Ht 180.3 cm; Wt 116.5 kg
[~2016-07-20 01:58] MED LIST changes: -CEPH500C PO; -CEPH500C2 PO; -ECON118C TOP; -ESCI10TA17 PO; -FLUO20CA20 PO; -GLC500 PO; -GLC850 PO; -LEVO1TAB33 PO; -NAPR-1169 PO; -PRED20TA PO; -SENN1TAB65 PO; -SULF400T7 PO; -SULF800T23 PO; -SYMIN160 INH; -TRAM-10 PO; -VGR50 PO; -[UNRECOGNIZED DRUG - CODE] PO
[2016-07-20 02:04] VITALS: TEMP 36.9; Ht 180.3 cm; Wt 116.5 kg
[2016-07-20] MEDS ORDERED: DIPHTHERIA/TETANUS/PERTUSSIS 0.5 ML SYR/VIAL IM. ONE (03:00)
[2016-07-20] MEDS ORDERED: SEPTRA DS HOME PACK 1 EA VIAL PO ONE (03:00)
[2016-07-20] MEDS ORDERED: CEPHALEXIN MONOHYDRATE 250 MG CAP PO ONE (03:00)
[2016-07-20] MEDS ORDERED: SULFAMETHOXAZOLE/TRIMETHOPRIM DS 800/160MG TAB PO ONE (03:00)
[2016-07-20] MEDS ORDERED: CEPHALEXIN 500MG HOME PACK 1 EA BTL PO ONE (03:00)
[2016-07-20] MEDS ORDERED: CEPH500C PO (03:11)
[2016-07-20] MEDS ORDERED: SULF800T23 PO (03:11)
[2016-07-20 03:28] VITALS: BP 153/103; PULSE 90; O2SAT 95
--- NOTE | 2016-07-20 05:33 | EMERGENCY ROOM VISIT NOTE ---
ED Visit Note First contact with patient: 02:26 CHIEF COMPLAINT: Toe injury HISTORY OF PRESENT ILLNESS: This 56-year-old male patient presents to the emergency department complaining of pain in the left second toe after striking it off a piece of metal at home yesterday. The patient is a diabetic and has chronic lymphedema of his feet. He is concerned for infection as he has developed some slight redness in the area. He has been able to ambulate and does not have pain of the foot. He did suffer minimal bleeding to the toe. No other complaints. REVIEW OF SYSTEMS: A 6 system review of systems was completed with positives and pertinent negatives listed in the HPI. ALLERGIES: No known allergies MEDICATIONS: See EMR PMH: See EMR SOCIAL HISTORY: See EMR PHYSICAL EXAM: Vital Signs: Reviewed Nurse's notes, vital signs stable. GENERAL : White male, in no acute distress, but appears in pain, well-developed, well- nourished. SKIN: There is mild erythema and redness of there is a superficial abrasion here. The left second toe. There is no ecchymosis. There is no active bleeding and no laceration. Capillary refill less than two seconds. MUSCULOSKELETAL: The left 2nd toe is tender to palpation over the medial distal toe. There is no limitation of motion due to tenderness. There is no visual deformity. The ankle joint is not swollen or tender. The foot with chronic lymphedema and is nontender. NEURO: Patient was alert and oriented to person place and time. Normal sensation to light and sharp touch. EMERGENCY DEPARTMENT COURSE: Physical examination were performed. Nursing notes and EMR were reviewed. The patient struck his left second toe on a piece of metal at home. He does have some very mild erythema with a superficial abrasion. Overall the toe appears well, however considering his diabetic status and chronic lymphedema he will be started on antibiotics. Additionally I will update his tetanus status. The patient was given his first doses here in the department and given a home pack. He was invited back to the ER with any new, worsening, or concerning symptoms. He voiced understanding of this and rated his discomfort a 0/10 at the time of departure. Problem List Medical Problems: (1) Asthma Status: Chronic (2) Benign hypertension Status: Chronic (3) Bilateral lower extremity edema Status: Resolved (4) Bipolar disorder Status: Chronic (5) Diabetes Status: Chronic (6) Gastroesophageal reflux disease Status: Chronic (7) Hypoglycemia Status: Resolved (8) Hyponatremia Status: Resolved (9) Hypothyroidism Status: Chronic (10) Hypoxia Status: Resolved (11) Insomnia Status: Resolved (12) Knee pain Status: Resolved (13) Pneumonia Status: Resolved (14) Pneumonia Status: Resolved (15) Rib pain on left side Status: Resolved (16) Schizophrenia Status: Chronic (17) Sepsis Status: Resolved (18) Sepsis Status: Resolved (19) SOB (shortness of breath) Status: Resolved (20) Soft tissue disorder Status: Resolved (21) Unable to void Status: Resolved (22) Weakness Status: Resolved Current/Historical Medications Scheduled Albuterol Hfa (Ventolin Hfa), 2 PUFFS INH DAILY Aspirin (Aspirin EC Low Dose), 81 MG PO DAILY Bupropion Hcl (Bupropion Hcl Xl), 150 MG PO QAM Buspirone Hcl (Buspirone Hcl), 30 MG PO BID Cephalexin Monohydrate (Keflex), 500 MG PO TID Clonazepam (Klonopin), 2 TAB PO HS Divalproex Sodium (Depakote Er), 250 MG PO HS Divalproex Sodium (Depakote Er), 2,000 MG PO UD Divalproex Sodium (Depakote Er), 1,500 MG PO UD Divalproex Sodium (Divalproex Sodium ER), 1,750 MG PO HS Furosemide (Lasix), 40 MG PO DAILY Levothyroxine Sodium (Levothyroxine Sodium), 175 MCG PO DAILY Lisinopril (Zestril), 10 MG PO DAILY Loratadine (Claritin), 10 MG PO DAILY Loxapine Succinate (Loxapine Succinate), 150 MG PO HS Magnesium Oxide (Mag-Ox), 400 MG PO DAILY Montelukast Sodium (Montelukast Sodium), 10 MG PO HS Omeprazole (Prilosec), 20 MG PO DAILY Potassium Ext Rel (Klor-Con), 40 MEQ PO DAILY Pravastatin (Pravachol ), 20 MG PO HS Ranitidine (Zantac), 150 MG PO DAILY Sulfa/Trimethoprim (Bactrim Ds 800MG/160MG), 1 TAB PO BID Ziprasidone Hcl (Geodon), 80 MG PO QAM Ziprasidone Hcl (Geodon), 160 MG PO HS Scheduled PRN Clonazepam (Klonopin), 1 MG PO TID PRN for UNDECIDED Fluticasone Propionate (Nasal) (Flonase Allergy Relief Ch), 1 SPRAY SHAWNA DAILY PRN for Nasal Congestion Polyethylene Glycol 3350 (Miralax), 17 GM PO DAILY PRN for Constipation Allergies Coded Allergies: No Known Allergies (Verified , 06/01/16) Vital Signs Date Time Temp Pulse Resp B/P Pulse Ox O2 Delivery O2 Flow Rate FiO2 07/20/16 03:28 90 20 153/103 95 07/20/16 02:04 36.9 96 20 166/115 98 Room Air Medications Administered Medications (Trade) Dose Ordered Sig/Daniel Route Start Time Stop Time Status Last Admin Dose Admin Trimethoprim/ Sulfamethoxazole (Sulfameth/ Trimeth Ds 800/ 160MG Home Pack) 1 homepack UD ONCE PO 07/20/16 03:00 07/20/16 03:01 DC 07/20/16 03:12 1 HOMEPACK Cephalexin Monohydrate (Keflex 500MG Home Pack) 1 homepack NOW ONCE PO 07/20/16 03:00 07/20/16 03:01 DC 07/20/16 03:12 1 HOMEPACK Trimethoprim/ Sulfamethoxazole (Septra Ds 800/ 160MG Tab) 1 tab NOW ONCE PO 07/20/16 03:00 07/20/16 03:01 DC 07/20/16 03:12 1 TAB Cephalexin Monohydrate (Keflex Cap) 500 mg NOW ONCE PO 07/20/16 03:00 07/20/16 03:01 DC 07/20/16 03:12 500 MG Diphtheria/ Pertussis/Tetanus Vacc (Adacel Inj) 0.5 ml ONCE ONCE IM. 07/20/16 03:00 07/20/16 03:01 DC 07/20/16 03:13 0.5 ML Departure Information Impression Primary Impression: Injury of left toe Dispostion Home / Self-Care Condition GOOD Prescriptions Cephalexin Monohydrate (Keflex) 500 Mg Cap 500 MG PO TID for 9 Days, #27 CAP Prov: Pool Up PA-C 07/20/16 Sulfa/Trimethoprim (Bactrim Ds 800MG/160MG) Tab 1 TAB PO BID for 9 Days, #18 TAB Prov: Pool Up PA-C 07/20/16 Forms HOME CARE DOCUMENTATION FORM, IMPORTANT VISIT INFORMATION Patient Instructions My [facility] Additional Instructions You were seen and evaluated today on an emergency basis only. This is not a substitute for, or an effort to provide, complete comprehensive medical care. It is not possible to recognize and treat all injuries or illnesses in a single emergency department visit. For this reason it is recommended that you followup with your primary care physician's office next week for ongoing care and evaluation. Trimethoprim-Sulfamethoxazole(Bactrim DS): Take one pill twice daily for 10 total days for your skin infection. All antibiotics can cause diarrhea. If this occurs and you feel worse or it does not resolve in 1-2 days follow up with your doctor or return to the Emergency Department as this could be signs of serious underlying problems. Any medication can cause an allergic reaction, stop the pills immediately and return to the ER for rash, hives, breathing difficulties, or swelling. Cephalexin(Keflex) 500mg: Take one pill 3 times daily for 10 total days for your skin infection. All antibiotics can cause diarrhea. If this occurs and you feel worse or it does not resolve in 1-2 days follow up with your doctor or return to the Emergency Department as this could be signs of serious underlying problems. Any medication can cause an allergic reaction, stop the pills immediately and return to the ER for rash, hives, breathing difficulties, or swelling. You are welcome to return to the emergency department anytime with new, worsening, or concerning symptoms.
== END 2016-07-20 03:30 | disposition home or self-care (01) ==
LOC: C.EDB 02:00
DX: S90.935A Unspecified superficial injury of left lesser toe(s), initial encounter (principal); W22.8XXA Striking against or struck by other objects, initial encounter; Y92.019 Unspecified place in single-family (private) house as the place of occurrence of the external cause; I89.0 Lymphedema, not elsewhere classified; J45.909 Unspecified asthma, uncomplicated; I10 Essential (primary) hypertension; F31.9 Bipolar disorder, unspecified; E11.9 Type 2 diabetes mellitus without complications; K21.9 Gastro-esophageal reflux disease without esophagitis; E03.9 Hypothyroidism, unspecified; F20.9 Schizophrenia, unspecified; Z79.82 Long term (current) use of aspirin; Z79.899 Other long term (current) drug therapy

== ENCOUNTER 2016-07-22 06:05 | Observation (INO) | payer OTHER ==
[~2016-07-22] VITALS: Ht 180.3 cm; Wt 112.0 kg
[~2016-07-22 06:05] MED LIST changes: +CEPH500C PO; +SULF800T23 PO
--- NOTE | 2016-07-22 06:56 | EMERGENCY ROOM VISIT NOTE ---
History Report prepared by Beny: Marilu King Under the Supervision of: Dr. Joe Foster M.D. First contact with patient: 06:38 Chief Complaint: MENTAL HEALTH EVALUATION Stated Complaint: MENTAL HEALTH ASSESSMENT History of Present Illness The patient is a 56 year old male who presents to the Emergency Room via EMS for a mental health evaluation and with complaints of worsening shortness of breath and chest pain with onset 30 minutes ago. The patient states that he has a history of asthma and anxiety. Thirty minutes ago, the patient started to have shortness of breath and that. He has some heaviness in his chest. He states that he is afraid to go home now as he is afraid that he will stop breathing. " I am afraid that I will have my first heart attack, due to gaining weight, I have the edema." He states that his heart is healthy and that the swelling in his feet is being treated. The patient states that his left leg is more swollen as it as more arthritic pain: He states that the edema is more severe in the left leg. He states that being asked about it irritates him. He states that he is eating and drinking normally. The patient states that he is getting worked up due to his psychiatric history "which has nothing to do with this." The patient states that he was talked about in the hospital. The patient states that a woman doctor was talking about him behind his back. He states that he was going to complain to administration but he decided against it. The patient states that he does not want to be at the hospital as he does not want people to talk about him. He states that the nursing staff had talked about him during previous visits to the ED. " It's so obvious, I can hear it." "I just wanted to be treated with respect by the nurses. I have heard it several times behind my back when I have been in here. It's not right, it's not professional, I should do something about it. Talk to the administration." The patient states that he missed several medications last night: Loxapine, Klonopin, Pravastatin. The patient states that he uses inhalers at home. He is not on blood thinners. He denies suicidal ideation, homicidal ideation, hearing voices earlier, fever, cough, pain with breathing, abdominal pain, nausea, vomiting, diarrhea, urinary symptoms, falling or recent trauma. Source of History: patient Onset: 30 minutes ago Position: chest Quality: other (shortness of breath) Timing: worsening Associated Symptoms: No abdominal pain, No cough, No diarrhea, No fevers, No nausea, No urinary symptoms, No vomiting Note: He denies suicidal ideation, homicidal ideation, hearing voices earlier, pain with breathing. Review of Systems See HPI for pertinent positives & negatives. A total of 10 systems reviewed and were otherwise negative. Past Medical & Surgical Medical Problems: (1) Altered mental status (2) Asthma (3) Benign hypertension (4) Bilateral lower extremity edema (5) Bipolar disorder (6) Community acquired pneumonia (7) Diabetes (8) Gastroesophageal reflux disease (9) Hypoglycemia (10) Hyponatremia (11) Hypothyroidism (12) Hypoxia (13) Insomnia (14) Knee pain (15) Lymphedema of both lower extremities (16) Pneumonia (17) Pneumonia (18) Rib pain on left side (19) Schizophrenia (20) Sepsis (21) Sepsis (22) SOB (shortness of breath) (23) Soft tissue disorder (24) Unable to void (25) Weakness Old medical records were reviewed. Nurse's notes were reviewed and I agree with. Family History Diabetes mellitus Gallbladder disease Hypertension Social History Smoking Status: Never Smoker Alcohol Use: none Drug Use: none Marital Status: single Housing Status: lives alone Occupation Status: unemployed Current/Historical Medications Scheduled Albuterol Hfa (Ventolin Hfa), 2 PUFFS INH DAILY Aspirin (Aspirin EC Low Dose), 81 MG PO DAILY Bupropion Hcl (Bupropion Hcl Xl), 150 MG PO QAM Buspirone Hcl (Buspirone Hcl), 30 MG PO BID Cephalexin Monohydrate (Keflex), 500 MG PO TID Clonazepam (Klonopin), 2 TAB PO HS Divalproex Sodium (Depakote Er), 250 MG PO HS Divalproex Sodium (Depakote Er), 2,000 MG PO UD Divalproex Sodium (Depakote Er), 1,500 MG PO HS Furosemide (Lasix), 40 MG PO DAILY Levothyroxine Sodium (Levothyroxine Sodium), 175 MCG PO DAILY Lisinopril (Zestril), 10 MG PO DAILY Loratadine (Claritin), 10 MG PO DAILY Loxapine Succinate (Loxapine Succinate), 150 MG PO HS Magnesium Oxide (Mag-Ox), 400 MG PO DAILY Montelukast Sodium (Montelukast Sodium), 10 MG PO HS Omeprazole (Prilosec), 20 MG PO DAILY Potassium Ext Rel (Klor-Con), 40 MEQ PO DAILY Pravastatin (Pravachol ), 20 MG PO HS Ranitidine (Zantac), 150 MG PO DAILY Sulfa/Trimethoprim (Bactrim Ds 800MG/160MG), 1 TAB PO BID Ziprasidone Hcl (Geodon), 80 MG PO QAM Ziprasidone Hcl (Geodon), 160 MG PO HS Scheduled PRN Clonazepam (Klonopin), 1 MG PO DAILY PRN for Anxiety Fluticasone Propionate (Nasal) (Flonase Allergy Relief Ch), 1 SPRAY SHAWNA DAILY PRN for Nasal Congestion Polyethylene Glycol 3350 (Miralax), 17 GM PO DAILY PRN for Constipation Allergies Coded Allergies: No Known Allergies (Verified , 07/22/16) Physical Exam Vital Signs Date Time Temp Pulse Resp B/P Pulse Ox O2 Delivery O2 Flow Rate FiO2 07/22/16 08:46 91 07/22/16 08:43 98 Room Air 07/22/16 08:43 93 20 163/94 98 Room Air 07/22/16 07:34 91 18 119/95 94 Room Air 07/22/16 06:14 36.6 104 18 155/109 95 Room Air Physical Exam General: Non ill appearing, middle aged male, appears in no acute distress. HEENT: Normal cephalic atraumatic. Pupils are equal round and reactive to light. Extraocular movements are intact. Oropharynx is pink with moist mucous membranes. No swelling of the mouth lips or tongue. Neck: Supple with a midline trachea. No meningeal signs or stiffness, no JVD or bruits. No Stridor. Chest: Clear to auscultation bilaterally. No wheezes or rhonchi. No increased work of breathing. Heart: regular rate and rhythm. Abdomen: Soft nontender, nondistended without rebound guarding or rigidity. Extremities: No cyanosis clubbing. No calf tenderness or assymetry. Significant chronic bilateral lower extremity edema which the patient states is unchanged. Spine/Back. Non tender to palpation. No CVA tenderness Skin: Good turgor without rashes. Neurologic exam: Cranial nerves two through 12 are intact. Motor and sensation are intact and symmetrical throughout. Psychologic: No suicidal or homicidal ideations, paranoid thinking. Medical Decision & Procedures ER Provider Diagnostic Interpretation: X-ray results as stated below per interpretation by me and the radiologist: CHEST ONE VIEW PORTABLE CLINICAL HISTORY: Chest pain. COMPARISON STUDY: Chest radiograph June 01, 2016. FINDINGS: This study is compromised by suboptimal positioning. There is no pneumothorax or pleural effusion. There is no evidence of pulmonary edema. No consolidation is identified. Cardiomediastinal silhouette is stable. IMPRESSION: No acute cardiopulmonary findings. Electronically signed by: Quoc Kan M.D. 07/22/2016 7:44 AM Dictated Date/Time: 07/22/2016 7:43 AM Laboratory Results 07/22/16 07:28 Red Blood Count 4.74, Mean Corpuscular Volume 86.3, Mean Corpuscular Hemoglobin 31.2, Mean Corpuscular Hemoglobin Concent 36.2, Mean Platelet Volume 8.6, Neutrophils (%) (Auto) 55.5, Lymphocytes (%) (Auto) 31.3, Monocytes (%) (Auto) 11.0, Eosinophils (%) (Auto) 1.7, Basophils (%) (Auto) 0.1, Neutrophils # (Auto ) 5.07, Lymphocytes # (Auto) 2.86, Monocytes # (Auto) 1.01, Eosinophils # (Auto ) 0.16, Basophils # (Auto) 0.01 07/22/16 07:28 Test 07/22/16 07:15 07/22/16 07:28 07/22/16 07:30 Urine Color YELLOW Urine Appearance CLEAR (CLEAR) Urine pH 7.5 (4.5-7.5) Urine Specific [place] 1.005 (1.000-1.030) Urine Protein NEG (NEG) Urine Glucose (UA) NEG (NEG) Urine Ketones NEG (NEG) Urine Occult Blood NEG (NEG) Urine Nitrite NEG (NEG) Urine Bilirubin NEG (NEG) Urine Urobilinogen NEG (NEG) Urine Leukocyte Esterase NEG (NEG) White Blood Count 9.15 K/uL (4.8-10.8) Red Blood Count 4.74 M/uL (4.7-6.1) Hemoglobin 14.8 g/dL (14.0-18.0) Hematocrit 40.9 % (42-52) Mean Corpuscular Volume 86.3 fL (80-100) Mean Corpuscular Hemoglobin 31.2 pg (25-34) Mean Corpuscular Hemoglobin Concent 36.2 g/dl (32-36) Platelet Count 202 K/uL (130-400) Mean Platelet Volume 8.6 fL (7.4-10.4) Neutrophils (%) (Auto) 55.5 % Lymphocytes (%) (Auto) 31.3 % Monocytes (%) (Auto) 11.0 % Eosinophils (%) (Auto) 1.7 % Basophils (%) (Auto) 0.1 % Neutrophils # (Auto) 5.07 K/uL (1.4-6.5) Lymphocytes # (Auto) 2.86 K/uL (1.2-3.4) Monocytes # (Auto) 1.01 K/uL (0.11-0.59) Eosinophils # (Auto) 0.16 K/uL (0-0.5) Basophils # (Auto) 0.01 K/uL (0-0.2) RDW Standard Deviation 42.7 fL (36.4-46.3) RDW Coefficient of Variation 13.5 % (11.5-14.5) Immature Granulocyte % (Auto) 0.4 % Immature Granulocyte # (Auto) 0.04 K/uL (0.00-0.02) Anion Gap 13.0 mmol/L (3-11) Est Creatinine Clear Calc Drug Dose 74.5 ml/min Estimated GFR () 63.7 Estimated GFR (Non- 55.0 BUN/Creatinine Ratio 8.7 (10-20) Calcium Level 8.6 mg/dl (8.5-10.1) Total Bilirubin 0.3 mg/dl (0.2-1) Direct Bilirubin < 0.1 mg/dl (0-0.2) Aspartate Amino Transf (AST/SGOT) 29 U/L (15-37) Alanine Aminotransferase (ALT/SGPT) 23 U/L (12-78) Alkaline Phosphatase 93 U/L (45-117) Total Creatine Kinase 446 U/L (39-308) Creatine Kinase MB 11.6 ng/ml (0.5-3.6) Creatine Kinase MB Ratio 2.6 (0-3.0) Total Protein 6.6 gm/dl (6.4-8.2) Albumin 3.6 gm/dl (3.4-5.0) Lipase 151 U/L (73-393) Thyroid Stimulating Hormone (TSH) 2.740 uIu/ml (0.300-4.500) Valproic Acid (Depakene) Level 102 mcg/ml (50-100) Bedside Troponin I 0.000 ng/ml (0-0.045) WO-[id number]-A-Type Natriuretic Peptide 84 pg/ml (0-900) Laboratory studies as stated above per my review. Medications Administered Medications (Trade) Dose Ordered Sig/Daniel Route Start Time Stop Time Status Last Admin Dose Admin Aspirin (Aspirin Chew) 324 mg NOW STAT PO 07/22/16 08:38 07/22/16 08:39 DC 07/22/16 08:51 324 MG Lorazepam 0.5 mg 0.5 mg NOW STAT SL 07/22/16 08:38 07/22/16 08:39 DC 07/22/16 08:52 0.5 MG Sodium Chloride 250 ml @ 999 mls/hr Q16M STAT IV 07/22/16 08:38 07/22/16 08:53 DC 07/22/16 08:53 999 MLS/HR Sodium Chloride (Nss 1000ml) 1,000 ml @ 100 mls/hr Q10H STAT IV 07/22/16 08:38 07/22/16 13:32 DC 07/22/16 08:53 100 MLS/HR ECG Indication: SOB/dyspnea Rate (beats per minute): 100 Rhythm: normal sinus Findings: LAFB, RBBB Comparison ECG Date: 06/03/2016 Change: Compared to previous EKG, rate has increased and right bundle branch block is now present. ED Course 0640: Past medical records reviewed. The patient was evaluated in room A6, and a complete history and physical examination were performed. 0754: I reevaluated the patient; he is sleeping. 0829: Upon reevaluation, the patient is resting. I discussed the results and treatment plan with the patient. He verbalized agreement of the treatment plan. The patient will be evaluated for further management. 0838: Sodium Chloride 1000 ml @ 100 mls/hr IV, Sodium Chloride 250 ml @ 999 mls/ hr IV, Ativan 0.5 mg SL, Aspirin 324 mg PO 0845: I discussed the case with Dr. Arellano ([facility]); he will further evaluate the patient. Medical Decision Differentials include, but are not limited to; anxiety, acute coronary syndrome , CHF, infection, electrolyte or metabolic abnormality, schizophrenia. This patient comes in as described above. He was placed in room A6. He is here after feeling very anxious. He apparently heard voices and called the ambulance after being anxious. He feels much better now he says he feels mildly short of breath. He does have significant peripheral edema which he is adamant that is long-standing and unchanged. He appears in no distress and does have some paranoid thinking especially about the staff talking about him. He denies any suicidal or homicidal ideations. EKG, chest x-ray, multiple blood testing was obtained. He was reassessed frequently. EKG shows normal sinus rhythm right bundle branch block this apparently is rate dependent it was not there on the last EKG but in some of the old EKGs it was present. His troponin is not elevated. His CK-MB is elevated however looking back through his chart that has been elevated in the past. I am concerned also that his sodium is low at 126. He does have history of having low sodium in the past but most recently it was 138. The sodium decrease may be responsible for some of his anxiety and possible behavioral issues. He says that he has chest pain, and shortness breath with anxiety but this is different. In light of this and in a low sodium, I do think he needs to be admitted for further treatment and evaluation to rule out acute cardiac event monitor the sodium. Consults Time Called: 0838 Consulting Physician: Dr. Arellano ([facility]) Returned Call: [phone] I discussed the case with Dr. Arellano ([facility]); he will further evaluate the patient. Impression Primary Impression: Hyponatremia Additional Impressions: Precordial chest pain Paranoia Scribe Attestation The scribe's documentation has been prepared under my direction and personally reviewed by me in its entirety. I confirm that the note above accurately reflects all work, treatment, procedures, and medical decision making performed by me. Departure Information Dispostion Being Evaluated By Hospitalist Referrals Yohannes Carrillo M.D. (PCP) Patient Instructions My [facility] Problem Qualifiers
[2016-07-22 07:27] LABS: URINE APPEARANCE CLEAR (CLEAR); URINE BILIRUBIN NEG (NEG); URINE COLOR YELLOW; URINE NITRITE NEG (NEG); URINE PH 7.5 (4.5-7.5); URINE SPECIFIC GRAVITY 1.005 (1.000-1.030); UROBILINOGEN NEG (NEG)
[2016-07-22 07:30] LABS: MANUAL MICROSCOPIC REQUIRED? NO; REVIEW REQ? NO
[2016-07-22 07:39] LABS: BASO % 0.1 %; BASO ABS # 0.01 K/uL (0-0.2); COMPLETE YES; EOS % 1.7 %; HEMATOCRIT 40.9 % (42-52); IG% 0.4 %; LYMPH % 31.3 %; LYMPH ABS # 2.86 K/uL (1.2-3.4); MEAN CELL VOLUME 86.3 fL (80-100); MEAN CORPUSCULAR HEMOGLOBIN 31.2 pg (25-34); MEAN CORPUSCULAR HGB CONC 36.2 g/dl (32-36); MEAN PLATELET VOLUME 8.6 fL (7.4-10.4); NEUT % 55.5 %; PLATELET COUNT 202 K/uL (130-400); RED BLOOD COUNT 4.74 M/uL (4.7-6.1); WHITE BLOOD COUNT 9.15 K/uL (4.8-10.8)
--- NOTE | 2016-07-22 07:45 | DIAGNOSTIC IMAGING REPORT ---
CHEST ONE VIEW PORTABLE CLINICAL HISTORY: Chest pain. COMPARISON STUDY: Chest radiograph June 01, 2016. FINDINGS: This study is compromised by suboptimal positioning. There is no pneumothorax or pleural effusion. There is no evidence of pulmonary edema. No consolidation is identified. Cardiomediastinal silhouette is stable. IMPRESSION: No acute cardiopulmonary findings. Electronically signed by: Quoc Kan M.D. 07/22/2016 7:44 AM Dictated Date/Time: 07/22/2016 7:43 AM
[2016-07-22 07:56] LABS: ALT/SGPT 23 U/L (12-78); BLOOD UREA NITROGEN 12 mg/dl (7-18); BUN/CREATININE RATIO 8.7 (10-20); CALCIUM 8.6 mg/dl (8.5-10.1); CARBON DIOXIDE 25 mmol/L (21-32); CHLORIDE 88 mmol/L (98-107); GLUCOSE 93 mg/dl (70-99); POTASSIUM 4.2 mmol/L (3.5-5.1); SODIUM 126 mmol/L (136-145)
[2016-07-22 08:07] LABS: ALKALINE PHOSPHATASE 93 U/L (45-117); AST/SGOT 29 U/L (15-37); CKMB/CK RATIO 2.6 (0-3.0)
[2016-07-22] MEDS ORDERED: SODIUM CHLORIDE 0.9% 1000ML 250 ML IV STA (08:38)
[2016-07-22] MEDS ORDERED: LORAZEPAM 0.5 MG TAB SL STA (08:38)
[2016-07-22] MEDS ORDERED: ASPIRIN 81 MG CHEW PO STA (08:38)
[2016-07-22] MEDS ORDERED: SODIUM CHLORIDE 0.9% 1000ML 1,000 ML IV STA (08:38)
[2016-07-22] MEDS ORDERED: SODIUM CHLORIDE 0.9% 1000ML 1,000 ML IV SCH (09:55)
[2016-07-22] MEDS ORDERED: POLYETHYLENE (MIRALAX) 17 GM PACK PO PRN (10:00)
[2016-07-22] MEDS ORDERED: ACETAMINOPHEN 325 MG TAB PO PRN (10:00)
[2016-07-22] MEDS ORDERED: CLONAZEPAM 1 MG TAB PO PRN (10:00)
[2016-07-22] MEDS ORDERED: HydrALAZINE HCL 20 MG/ML VIAL IV. PRN (10:00)
[2016-07-22] MEDS ORDERED: NITROGLYCERIN 0.4 MG SL PER TAB CHARGE SL PRN (10:00)
[2016-07-22] MEDS ORDERED: FLUTICASONE PROPIONATE NA SPR 16 GM BTL NAE PRN (10:00)
[2016-07-22] MEDS ORDERED: ONDANSETRON INJ 2 MG/ML 2 ML VIAL IV PRN (10:00)
[2016-07-22] MEDS ORDERED: ALUMINUM/MAGNESIUM/SIMETH (MAALOX MAX) 30 ML UDC PO PRN (10:00)
[2016-07-22] MEDS ORDERED: MAGNESIUM HYDROXIDE SUSP 30 ML UDC PO PRN (10:00)
--- NOTE | 2016-07-22 10:37 | History and Physical ---
History & Physical Date & Time of Service: Jul 22, 2016 at 10:04 Chief Complaint: Mental Health Assessment Primary Care Physician: Yohannes Carrillo M.D. 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 Per patient, 30 minutes prior to arriving in ED he started to experience these symptoms. He denies history of similar symptoms. Currently, patient states he is feeling well and symptoms have resolved. He denies any cardiac history. He has impressive chronic lymphedema of bilateral lower extremities. According to patient, the left leg is always more swollen due to knee arthritis. He states he is following with Dr. Nascimento for his lymphedema/venous insufficiency. Patient states bilateral lower extremities are at baseline. He denies history of DVT. Denies PE/CVA/TIA history. Denies history of anticoagulation. Patient denies any fever, chills, sweats, lightheadedness, dizziness, vision changes, palpitations, edema, wheezing, cough, abdominal pain, nausea, vomiting, diarrhea, urinary symptoms, melena, numbness/tingling, weakness, muscle/joint pain, anxiety/depression, active bleeding, or new skin discoloration/changes. Patient was seen in the ED on 07/20, due to a laceration of left second toe. According to records, patient lacerated his toe on a piece of metal. Patient is currently receiving PO Keflex and Bactrim x9 days. Patient has an extensive psychiatry history for which he follows with Dr. Tamayo. Patient states he is very anxious at baseline. According to ER report, patient was worried about retuning home and having a heart attack due to his weight gain. Patient states that he knows some of the staff is "talking about him behind his back." He denies any suicidal/homicidal ideations. Patient currently lives at alone. Past Medical/Surgical History Medical Problems: 1. Bipolar/schizophrenic 2. HTN 3. Hypercholesterolemia 4. Hypothyroidism 5. Hypomagnesemia 6. GERD 7. Venous insufficiency/lymphedema 8. Asthma 9. h/o T2DM Family History Diabetes mellitus Gallbladder disease Hypertension Social History Smoking Status: Never Smoker Drug Use: none Marital Status: single Housing status: lives alone Occupational Status: unemployed Immunizations History of Influenza Vaccine: Yes Influenza Vaccine Date: Mar 03, 2013 History of Tetanus Vaccine?: UTD History of Pneumococcal: Yes Pneumococcal Date: Feb 28, 2008 History of Hepatitis B Vaccine: No Multi-Drug Resistant Organisms History of MDRO: No Allergies Coded Allergies: No Known Allergies (Verified , 07/22/16) Home Medications Scheduled Albuterol Hfa (Ventolin Hfa), 2 PUFFS INH DAILY Aspirin (Aspirin EC Low Dose), 81 MG PO DAILY Bupropion Hcl (Bupropion Hcl Xl), 150 MG PO QAM Buspirone Hcl (Buspirone Hcl), 30 MG PO BID Cephalexin Monohydrate (Keflex), 500 MG PO TID Clonazepam (Klonopin), 2 TAB PO HS Divalproex Sodium (Depakote Er), 250 MG PO HS Divalproex Sodium (Depakote Er), 2,000 MG PO UD Divalproex Sodium (Depakote Er), 1,500 MG PO HS Furosemide (Lasix), 40 MG PO DAILY Levothyroxine Sodium (Levothyroxine Sodium), 175 MCG PO DAILY Lisinopril (Zestril), 10 MG PO DAILY Loratadine (Claritin), 10 MG PO DAILY Loxapine Succinate (Loxapine Succinate), 150 MG PO HS Magnesium Oxide (Mag-Ox), 400 MG PO DAILY Montelukast Sodium (Montelukast Sodium), 10 MG PO HS Omeprazole (Prilosec), 20 MG PO DAILY Potassium Ext Rel (Klor-Con), 40 MEQ PO DAILY Pravastatin (Pravachol ), 20 MG PO HS Ranitidine (Zantac), 150 MG PO DAILY Sulfa/Trimethoprim (Bactrim Ds 800MG/160MG), 1 TAB PO BID Ziprasidone Hcl (Geodon), 80 MG PO QAM Ziprasidone Hcl (Geodon), 160 MG PO HS Scheduled PRN Clonazepam (Klonopin), 1 MG PO DAILY PRN for Anxiety Fluticasone Propionate (Nasal) (Flonase Allergy Relief Ch), 1 SPRAY [place]AWNA DAILY PRN for Nasal Congestion Polyethylene Glycol 3350 (Miralax), 17 GM PO DAILY PRN for Constipation Physical Exam Vital Signs Date Time Temp Pulse Resp B/P Pulse Ox O2 Delivery O2 Flow Rate FiO2 07/22/16 08:46 91 07/22/16 08:43 98 Room Air 07/22/16 08:43 93 20 163/94 98 Room Air 07/22/16 07:34 91 18 119/95 94 Room Air 07/22/16 06:14 36.6 104 18 155/109 95 Room Air General Appearance: no apparent distress, + obese Head: normocephalic, atraumatic Eyes: normal inspection ENT: hearing grossly normal Neck: supple Respiratory/Chest: lungs clear, no respiratory distress, no accessory muscle use Cardiovascular: regular rate, rhythm Abdomen/GI: normal bowel sounds, non tender, soft Back: normal inspection Extremities/Musculoskelatal: + swelling (+4 pitting edema of bilateral lower extremities), + pertinent finding (Lesion of left second toe, wrapped in dressing; erythema noted to right anterior fan) Neurologic/Psych: alert, normal mood/affect, oriented x 3 Skin: normal color, warm/dry, no rash Diagnostics Laboratory Results Results Past 24 Hours Test 07/22/16 06:50 07/22/16 07:15 07/22/16 07:28 07/22/16 07:30 Range/Units Creatine Kinase MB Ratio 2.6 0-3.0 Urine Color YELLOW Urine Appearance CLEAR CLEAR Urine pH 7.5 4.5-7.5 Urine Specific [place] 1.005 1.000-1.030 Urine Protein NEG NEG Urine Glucose (UA) NEG NEG Urine Ketones NEG NEG Urine Occult Blood NEG NEG Urine Nitrite NEG NEG Urine Bilirubin NEG NEG Urine Urobilinogen NEG NEG Urine Leukocyte Esterase NEG NEG White Blood Count 9.15 4.8-10.8 K/uL Red Blood Count 4.74 4.7-6.1 M/uL Hemoglobin 14.8 14.0-18.0 g/dL Hematocrit 40.9 42-52 % Mean Corpuscular Volume 86.3 80-100 fL Mean Corpuscular Hemoglobin 31.2 25-34 pg Mean Corpuscular Hemoglobin Concent 36.2 32-36 g/dl Platelet Count 202 130-400 K/uL Mean Platelet Volume 8.6 7.4-10.4 fL Neutrophils (%) (Auto) 55.5 % Lymphocytes (%) (Auto) 31.3 % Monocytes (%) (Auto) 11.0 % Eosinophils (%) (Auto) 1.7 % Basophils (%) (Auto) 0.1 % Neutrophils # (Auto) 5.07 1.4-6.5 K/uL Lymphocytes # (Auto) 2.86 1.2-3.4 K/uL Monocytes # (Auto) 1.01 0.11-0.59 K/uL Eosinophils # (Auto) 0.16 0-0.5 K/uL Basophils # (Auto) 0.01 0-0.2 K/uL RDW Standard Deviation 42.7 36.4-46.3 fL RDW Coefficient of Variation 13.5 11.5-14.5 % Immature Granulocyte % (Auto) 0.4 % Immature Granulocyte # (Auto) 0.04 0.00-0.02 K/uL Sodium Level 126 136-145 mmol/L Potassium Level 4.2 3.5-5.1 mmol/L Chloride Level 88 98-107 mmol/L Carbon Dioxide Level 25 21-32 mmol/L Anion Gap 13.0 3-11 mmol/L Blood Urea Nitrogen 12 7-18 mg/dl Creatinine 1.40 0.60-1.40 mg/dl Est Creatinine Clear Calc Drug Dose 74.5 ml/min Estimated GFR () 63.7 Estimated GFR (Non- 55.0 BUN/Creatinine Ratio 8.7 10-20 Random Glucose 93 70-99 mg/dl Calcium Level 8.6 8.5-10.1 mg/dl Total Bilirubin 0.3 0.2-1 mg/dl Direct Bilirubin < 0.1 0-0.2 mg/dl Aspartate Amino Transf (AST/SGOT) 29 15-37 U/L Alanine Aminotransferase (ALT/SGPT) 23 12-78 U/L Alkaline Phosphatase 93 45-117 U/L Total Creatine Kinase 446 39-308 U/L Creatine Kinase MB 11.6 0.5-3.6 ng/ml Total Protein 6.6 6.4-8.2 gm/dl Albumin 3.6 3.4-5.0 gm/dl Lipase 151 73-393 U/L Thyroid Stimulating Hormone (TSH) 2.740 0.300-4.500 uIu/ml Valproic Acid (Depakene) Level 102 50-100 mcg/ml Bedside Troponin I 0.000 0-0.045 ng/ml NS-Lhg-R-Type Natriuretic Peptide 84 0-900 pg/ml Microbiology Results 07/22/16 Urine Culture, Received Pending Diagnostic Radiology CHEST ONE VIEW PORTABLE CLINICAL HISTORY: Chest pain. COMPARISON STUDY: Chest radiograph June 01, 2016. FINDINGS: This study is compromised by suboptimal positioning. There is no pneumothorax or pleural effusion. There is no evidence of pulmonary edema. No consolidation is identified. Cardiomediastinal silhouette is stable. IMPRESSION: No acute cardiopulmonary findings. Electronically signed by: Quoc Kan M.D. 07/22/2016 7:44 AM Dictated Date/Time: 07/22/2016 7:43 AM The status of this report is Signed. Draft = Not yet reviewed or approved by Radiologist. Signed = Reviewed and approved by Radiologist. EKG LOU COLON ID:[id number] 22-JUL-2016 07:19:53 [facility] Normal sinus rhythm Right bundle branch block Left anterior fascicular block Bifascicular block Septal infarct , age undetermined Abnormal ECG When compared with ECG of 03-JUN-2016 07:18, (RBBB and left anterior fascicular block) is now Present Septal infarct is now Present 25mm/s 10mm/mV 150Hz 8.0 SP2 12SL 241 ANASTASIA: 0 Referred by: Referred Self Unconfirmed Vent. 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 Cardiac r/o: - Admit to tele observation for cardiac monitoring - Trend cardiac enzymes- initial trop negative - EKG- new RBBB/L fascicular block. Repeat EKG - ECHO 06/22/16- The left ventricle is normal in size. The left ventricle is hyperdynamic. Ejection Fraction = 65-70%. The left ventricular wall motion is normal. There is moderate concentric left ventricular hypertrophy. Grade I diastolic dysfunction, (abnormal relaxation pattern). No significant valvular disease. - Continue ASA daily - Consult cardiology, appreciate recommendations Hyponatremia of 126: - Treat w/ IV NSS - Follow PRP Left second toe wound: - Seen in ED on 07/20--> placed on Bactrim and Keflex x9 days - Wound care per nursing staff Bipolar/schizophrenic: - Continue Bupropion 150 mg PO QAM and 30 mg BID, Klonopin 2 tablets PO HS, Depakote 1750 PO HS, Loxapine 150 mg PO HS, Geodon 80 mg PO QAM and 160 mg HS - Follows w/ Dr. Tamayo - Requesting psych consult. Consulted, appreciate recommendations HTN: Continue Lisinopril 10 mg PO daily. Hydralazine IV 10 mg PRN Hypercholesterolemia: Continue Pravastatin 20 mg PO HS Asthma: Continue home inhalers Hypomagnesemia: - Continue Mag-Ox supplement 400 mg PO daily - Check mag level Hypothyroidism: - Continue Synthroid 175 mcg PO daily - TSH WNL h/o of T2DM: - Denies any recent use of diabetic medication. Demanding regular diet due to frequent hypoglycemic episodes. -- Regular diet. Check ha1c--> if elevated, will start diabetic diet/discuss need for medication BSG ACHS Venous insufficiency/lymphedema: - Hold Lasix 40 mg PO daily due to hyponatremia/IVF GERD: Protonix 40 mg PO daily GI Prophylaxis: Maalox PRN, IV Zofran PRN, Colace and/or Milk of Mag PRN DVT prophylaxis: Lovenox 40 mg SQ q24 hrs, HERNAN and SCDs Code Status: LEVEL I, FULL Dispo: From home, lives alone. Consult social worker delinquency prevention for discharge planning A/P: Pt is seen and examined by me, Case is Discussed with PA, and agree with her Plan.Pt is a 56 year CM with no PMHx of CAD, came to the ED c/o of chest pain, left-sided CP, SOB, and diaphoresis. Pt states pain was substernal. Pt denies pain radiating to the jaw, neck, shoulder or back. Pain was 5-6/10 left sided substernal. Pt did not experience similar pain in the past. Pt denies history of CAD, however has a hx of HTN, and DLP. Pt denies any chest pain, SOB , dizziness, palpitation and LOC during my clinical exam and history taking. Pt states chest pain resolved completely. 1) A typical Cp, - stable, new RBBB in EKG. 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 - pt is fully AA0x3, - Na 123 , will repeat BMP in am. - will D/c IVF at this time. Level of Care Telemetry Resuscitation Status FULL RESUSCITATION VTE Prophylaxis VTE Risk Assessment Done? Y/N: Yes Risk Level: Moderate Given or contraindicated: Enoxaparin (Lovenox)SQ, T.E.D. Stockings, SCD's
[2016-07-22 12:01] VITALS: BP_SYST 138; BP_SYST 150; BP_DIAS 100; PULSE 82; TEMP 36.1; Ht 180.3 cm; Wt 112.0 kg
[2016-07-22 12:55] LABS: INR 0.9 (0.9-1.1)
--- NOTE | 2016-07-22 13:10 | CARDIOLOGY CONSULTATION ---
DATE OF CONSULTATION: 07/22/2016 REQUESTING PHYSICIAN: Vandana Browning PA-C CONSULTANT: Vincent Salazar DO of [facility] Cardiology for [facility]. REASON FOR CONSULTATION: Right bundle branch block and left anterior fascicular block. HISTORY OF PRESENT ILLNESS: This is one of a number of admissions for Lam. This morning, he describes having chest discomfort on the left side with some shortness of breath and diaphoresis. He notes that this is very similar to what he has had in the past when he has had panic attacks and he notes that he was anxious this morning. He is currently resting in bed. He has no chest discomfort, whatsoever. He feels back to himself. He also describes some lightheadedness when he was at home, although I am not sure this was an vertigo as he does not describe it as wooziness in the head. He has marked chronic lower extremity edema from the knee down, related to chronic lymphedema. He denies any increasing shortness of breath, PND, or orthopnea. He denies a cough, fevers, chills, sweats, bleeding, bruising, dark stools or black stools. The rest of systems otherwise negative. PAST MEDICAL HISTORY: 1. Bipolar disorder and schizophrenia. 2. Hypertension. 3. Hypercholesterolemia. 4. Hypothyroidism. 5. Hypomagnesemia. 6. GERD. 7. Chronic lymphedema with venous insufficiency. 8. Asthma. 9. Type 2 diabetes mellitus. 10. Rate related right bundle branch block at approximately 90 beats per minute. FAMILY HISTORY: Positive for diabetes and hypertension. SOCIAL HISTORY: Lifetime nonsmoker. He is single. He is unemployed. ALLERGIES: No known drug allergies. OUTPATIENT MEDICATIONS: Reviewed in detail. PHYSICAL EXAMINATION: GENERAL: He is awake, alert, and oriented x3. He does digress into long complicated stories. VITAL SIGNS: His heart rate is 83, his respirations are 18, his blood pressure is 138/84, and sats 98%. He is resting comfortably and is currently pain free. HEENNT: 2+ carotid upstrokes. No evidence of carotid bruits. Jugular venous pressure did not appear elevated. His sclerae is anicteric. His hearing is normal. LUNGS: Clear to auscultation bilaterally. No rales, rhonchi or wheezing. HEART: Regular rate and rhythm. No appreciable murmurs, rubs or gallops. ABDOMEN: Soft, nontender and nondistended. Positive bowel sounds. EXTREMITIES: Marked lower extremity edema from the knee down with significant pitting edema. PSYCHIATRIC: He has a flight of ideas and digresses into multiple stories while asking him questions. Chest x-ray, no acute cardiopulmonary findings. Echocardiogram on 06/02/2016, normal biventricular size and function, EF 65%-70%, moderate left ventricular hypertrophy, type 1 diastolic dysfunction, normal RV size and function, and type 1 diastolic dysfunction. LABORATORY STUDIES: Hemoglobin of 14.8 and his platelet count is 202. His TSH is normal. BUN 12, creatinine 1.4, and sodium 126, which is significantly lower than 06/04/2016 when it was 138. EKG today, sinus tachycardia at 100 beats per minute, right bundle branch block, left anterior fascicular block, and possible septal VT, age indeterminate. The heart rate is 100 beats per minute. In reviewing his previous EKGs from his May admission at a heart rate of 114, he had a complete right bundle branch block with a left anterior fascicular block. At a heart rate of 90, in sinus rhythm, he has an incomplete right bundle and left anterior fascicular block. In a heart rate of 76 beats per minute, he is in sinus rhythm with a normal ECG and there is no evidence of a right bundle and his accesses normalized. IMPRESSION: 1. Chest discomfort, which sounds noncardiac in etiology. His first troponin is negative. I would rule him out if his troponin is negative in 6 hours and this is unlikely represent an acute coronary syndrome. 2. He has a rate related right bundle with a left anterior fascicular block. At slower heart rates in the 70s, the right bundle and the LAFB are not present. At heart rates in the 80s or 90s, he has an incomplete right bundle with a left anterior fascicular block and with heart rate of 100 or above, he has a complete right bundle with a left anterior fascicular block. His echocardiogram from last month was relatively normal without LV or RV wall motion abnormalities. At this point, there is no need for further workup. He has not had any syncope or lightheadedness or dizziness thought to be related to an arrhythmia. 3. Hyponatremia. He is receiving IV fluids at this time. He should be fluid restrict to improve his sodium. In addition, his psychiatric medications should be reviewed as potential causes for hyponatremia as well. We will see him on an as needed basis unless his troponins would turn positive at this point. Thank you for allowing us to participate in his care. LAURA
[2016-07-22] MEDS: SULFAMETHOXAZOLE/TRIMETHOPRIM DS 800/160MG TAB PO SCH ×2 (13:18→21:04)
[2016-07-22] MEDS: CEPHALEXIN MONOHYDRATE 500 MG CAP PO SCH ×2 (13:20→21:04)
[2016-07-22] MEDS ORDERED: NURSING VERBAL MED ORDER ONE ×3 (13:30→14:45)
[2016-07-22] MEDS ORDERED: DEXTROSE 50% 50 ML SYR ONE (14:12)
[2016-07-22] MEDS ORDERED: IV FLUIDS COMPLETED PRN (14:15)
[2016-07-22] MEDS ORDERED: ALBUTEROL HFA 8 GM INHALER INH PRN (14:45)
[2016-07-22] MEDS ORDERED: DEXTROSE 50% 50 ML SYR IV PRN (15:15)
[2016-07-22] MEDS ORDERED: GLUCOSE 40% GEL 15 GM TUBE PO PRN (15:15)
[2016-07-22] MEDS ORDERED: GLUCAGON FOR INJ 1 MG VIAL SQ PRN (15:15)
[2016-07-22] MEDS ORDERED: GLUCOSE 10 TABS/TUBE PO PRN (15:15)
[2016-07-22 15:24] VITALS: BP_SYST 152; BP_SYST 156; BP_SYST 163; BP_DIAS 101; BP_DIAS 106; BP_DIAS 85; PULSE 63; TEMP 36.6; O2SAT 98
--- NOTE | 2016-07-22 15:36 | Psychiatric Consultation ---
Consultation Date of Consultation Jul 22, 2016. Identifying Data Mr. Wong is a 56 yo male who lives alone in [place]. He was admitted on 07/22/16 for hyponatremia and precordial chest pain. Cardiology was consulted given QTc 495 and other EKG abnormalities. Chief Complaint "my hands are cold". History of Present Illness Patient hasn't been admitted to psychiatric service since 2007, managed outpatient by Dr. Tamayo for diagnoses of bipolar and schizophrenia (probably schizoaffective, bipolar type). He was a bit tremulous on initial contact as just had a gluc check <50. He was organized but a bit expansive as he asked me to open his snacks and was very direct that he did not need a psych consult as he's not my "typical psych patient". He mainly wanted to speak about teaching himself Latvian. He doesn't attend any programming nor does he have a therapist but maintains a community case manager. He stated that he doesn't have anyone to bring his non-formulary loxapine to the hospital. He states that he does "fine without it" for 4-5 days in past when previously hospitalized and I believe that is true as I can find no evidence of psych consult during recent stays. His nursing/pharmacy staff were questioning what seems to be high dose Depakote but he has always required higher end dosing--having been on 4500 mg daily during his last hospitalization. Per [employer] his last fill of Klonopin was 06/20/16. He has also been getting tramadol regularly. Past Psychiatric History Current OP Treatment: psychiatrist (Dr. Tamayo), community case manager ([facility]) Prior OP Treatment: psychiatrist (Dr. Barcenas), community case manager ([facility] ) Prior Psych Hospitalizations: [facility] (2 hospitalization in , last admit 2007 for SI in context of paranoia with ideas of reference) Access to a Gun: No (denies) Past Medication Trials likely extensive list, last hospitalization De[facility], signed RENU for Dr. Tamayo who's office is currently closed as Saturday Past Medical/Surgical History (1) Hypoglycemia (2) Altered mental status (3) Hypothyroidism (4) Diabetes (5) Gastroesophageal reflux disease (6) Benign hypertension (7) Asthma (8) Bilateral lower extremity edema Allergies Allergies: Coded Allergies: No Known Allergies (Verified , 07/22/16) Home Medications Scheduled Albuterol Hfa (Ventolin Hfa), 2 PUFFS INH DAILY Aspirin (Aspirin EC Low Dose), 81 MG PO DAILY Bupropion Hcl (Bupropion Hcl Xl), 150 MG PO QAM Buspirone Hcl (Buspirone Hcl), 30 MG PO BID Cephalexin Monohydrate (Keflex), 500 MG PO TID Clonazepam (Klonopin), 2 TAB PO HS Divalproex Sodium (Depakote Er), 250 MG PO HS Divalproex Sodium (Depakote Er), 2,000 MG PO UD Divalproex Sodium (Depakote Er), 1,500 MG PO HS Furosemide (Lasix), 40 MG PO DAILY Levothyroxine Sodium (Levothyroxine Sodium), 175 MCG PO DAILY Lisinopril (Zestril), 10 MG PO DAILY Loratadine (Claritin), 10 MG PO DAILY Loxapine Succinate (Loxapine Succinate), 150 MG PO HS Magnesium Oxide (Mag-Ox), 400 MG PO DAILY Montelukast Sodium (Montelukast Sodium), 10 MG PO HS Omeprazole (Prilosec), 20 MG PO DAILY Potassium Ext Rel (Klor-Con), 40 MEQ PO DAILY Pravastatin (Pravachol ), 20 MG PO HS Ranitidine (Zantac), 150 MG PO DAILY Sulfa/Trimethoprim (Bactrim Ds 800MG/160MG), 1 TAB PO BID Ziprasidone Hcl (Geodon), 80 MG PO QAM Ziprasidone Hcl (Geodon), 160 MG PO HS Scheduled PRN Clonazepam (Klonopin), 1 MG PO DAILY PRN for Anxiety Fluticasone Propionate (Nasal) (Flonase Allergy Relief ), 1 SPRAY SHAWNA DAILY PRN for Nasal Congestion Polyethylene Glycol 3350 (Miralax), 17 GM PO DAILY PRN for Constipation Family History Diabetes mellitus Gallbladder disease Hypertension a sister has a history of state hospitalization, father had bipolar and in 2005 Alcohol Use Alcohol Use In Past 12 Months: No attended AA in past, past records refers to history of ETOH abuse Smoking Use Smoking Status: Never Smoker Substance History denied Personal History Lives in: [place] [address] Education: graduated college (health ed/general major) Work History: [employer] Relationship History: never Children: denied Review of Systems Psych: denies symptoms other than stated above tremor and cold due to hypoglycemia denies CP currently weight gain Examination Vital Signs Vital Signs Past 12 Hours Date Time Temp Pulse Resp B/P Pulse Ox O2 Delivery O2 Flow Rate FiO2 07/22/16 12:01 36.1 82 20 150/100 Room Air 138/100 07/22/16 11:06 83 18 138/84 98 07/22/16 10:27 86 07/22/16 10:11 81 20 147/93 98 Room Air 07/22/16 08:46 91 07/22/16 08:43 98 Room Air 07/22/16 08:43 93 20 163/94 98 Room Air 07/22/16 07:34 91 18 119/95 94 Room Air 07/22/16 06:14 36.6 104 18 155/109 95 Room Air Laboratory Results Last 24 Hours Test 07/22/16 06:50 07/22/16 07:15 07/22/16 07:28 07/22/16 07:30 Creatine Kinase MB Ratio 2.6 Urine Color YELLOW Urine Appearance CLEAR Urine pH 7.5 Urine Specific [place] 1.005 Urine Protein NEG Urine Glucose (UA) NEG Urine Ketones NEG Urine Occult Blood NEG Urine Nitrite NEG Urine Bilirubin NEG Urine Urobilinogen NEG Urine Leukocyte Esterase NEG White Blood Count 9.15 K/uL Red Blood Count 4.74 M/uL Hemoglobin 14.8 g/dL Hematocrit 40.9 % Mean Corpuscular Volume 86.3 fL Mean Corpuscular Hemoglobin 31.2 pg Mean Corpuscular Hemoglobin Concent 36.2 g/dl Platelet Count 202 K/uL Mean Platelet Volume 8.6 fL Neutrophils (%) (Auto) 55.5 % Lymphocytes (%) (Auto) 31.3 % Monocytes (%) (Auto) 11.0 % Eosinophils (%) (Auto) 1.7 % Basophils (%) (Auto) 0.1 % Neutrophils # (Auto) 5.07 K/uL Lymphocytes # (Auto) 2.86 K/uL Monocytes # (Auto) 1.01 K/uL Eosinophils # (Auto) 0.16 K/uL Basophils # (Auto) 0.01 K/uL RDW Standard Deviation 42.7 fL RDW Coefficient of Variation 13.5 % Immature Granulocyte % (Auto) 0.4 % Immature Granulocyte # (Auto) 0.04 K/uL Sodium Level 126 mmol/L Potassium Level 4.2 mmol/L Chloride Level 88 mmol/L Carbon Dioxide Level 25 mmol/L Anion Gap 13.0 mmol/L Blood Urea Nitrogen 12 mg/dl Creatinine 1.40 mg/dl Est Creatinine Clear Calc Drug Dose 74.5 ml/min Estimated GFR () 63.7 Estimated GFR (Non- 55.0 BUN/Creatinine Ratio 8.7 Random Glucose 93 mg/dl Calcium Level 8.6 mg/dl Total Bilirubin 0.3 mg/dl Direct Bilirubin < 0.1 mg/dl Aspartate Amino Transf (AST/SGOT) 29 U/L Alanine Aminotransferase (ALT/SGPT) 23 U/L Alkaline Phosphatase 93 U/L Total Creatine Kinase 446 U/L Creatine Kinase MB 11.6 ng/ml Total Protein 6.6 gm/dl Albumin 3.6 gm/dl Lipase 151 U/L Thyroid Stimulating Hormone (TSH) 2.740 uIu/ml Valproic Acid (Depakene) Level 102 mcg/ml Bedside Troponin I 0.000 ng/ml CS-Uob-C-Type Natriuretic Peptide 84 pg/ml Test 07/22/16 12:33 07/22/16 13:18 07/22/16 13:37 07/22/16 13:38 Prothrombin Time 10.0 SECONDS Prothromb Time International Ratio 0.9 Bedside Glucose 58 mg/dl 49 mg/dl 41 mg/dl Test 07/22/16 13:54 07/22/16 14:10 07/22/16 14:40 Bedside Glucose 57 mg/dl 63 mg/dl 64 mg/dl Mental Examination During interview pt is: alert and oriented Appearance: appropriately groomed Eye contact is: fair Motor behavior is: tremor Speech: other (hyperverbal) Affect: euthymic Mood is: anxious Thought process: circumstantial Thought content: reality based without delusions Suicidal thought are: denied Homicidal thoughts are: denied Hallucinations: denies auditory, denies visual Cognition: other (concrete) Intelligence estimated to be: average Insight: limited Judgement: limited Impression / Recommendations Impression 56 yo male with history of schizoaffective disorder admit with prolonged QTc and hyponatremia on multiple psych meds. Recommendations discontinue loxapine, previously tolerated it being held during hospitalization , combo of antipsychotics plus patient drinking 1.5 gallons of water a day likely cause of his hyponatremia. I am also concerned about combo of atypical and typical antipsychotic given current QTc. No indication for acute inpatient hospitalization. Note that patient has been receiving tramadol regularly which could put at risk for AMS due to serotonin syndrome in combo with 60 mg daily Buspar. Confirmed Depakote dosing, no evidence of sedation or slowing to suggest need for ammonia level. Level 102 is fine as <120 Depakote. if Na and QTc do not improve with hold of typical antipsychotic and fluid restriction may need to reassess Geodon dosing. RENU to update community case manager and Dr. Tamayo so can consider loxapine needs following discharge. Liaison to confirm follow up appts if remains hospitalized tomorrow am when offices reopen.
[2016-07-22 16:25] VITALS: O2SAT 98
[2016-07-22] MEDS ORDERED: ENOXAPARIN 40 MG/0.4 ML SYR SC SCH (18:00)
[2016-07-22 20:05] VITALS: O2SAT 98
[2016-07-22 20:19] VITALS: BP 163/102; PULSE 98; TEMP 36.8; O2SAT 91
[2016-07-22] MEDS ORDERED: LOXAPINE SUCCINATE PO SCH (21:00)
[2016-07-22] MEDS ORDERED: CLONAZEPAM 1 MG TAB PO SCH (21:00)
[2016-07-22] MEDS ORDERED: MONTELUKAST SOD 10 MG TAB PO SCH (21:00)
[2016-07-22] MEDS ORDERED: ZIPRASIDONE 80 MG CAP PO SCH (21:00)
[2016-07-22] MEDS ORDERED: DIVALPROEX 250 MG EXTENDED REL TAB PO SCH (21:00)
[2016-07-22] MEDS ORDERED: PRAVASTATIN SOD 20 MG TAB PO SCH (21:00)
[2016-07-22] MEDS ORDERED: DIVALPROEX 500 MG EXTENDED RELEASE TAB PO SCH (21:00)
[2016-07-22] MEDS: BusPIRone 15 MG TAB PO SCH (21:04)
[2016-07-22] MEDS: BUDESONIDE/FORMOTEROL FUMARATE 80/4.5 60 PUFFS/INHALER INH SCH (21:08)
[2016-07-22 23:23] VITALS: BP 143/95; PULSE 59; TEMP 36.7; O2SAT 95
[2016-07-23] VITALS (7 sets, daily range): BP systolic 145–171; BP diastolic 92–106; PULSE 62–93; TEMP 36.6–36.7; O2SAT 93–97
[2016-07-23 06:06] LABS: HEMATOCRIT 42.9 % (42-52); MEAN CELL VOLUME 88.8 fL (80-100); MEAN CORPUSCULAR HEMOGLOBIN 31.3 pg (25-34); MEAN CORPUSCULAR HGB CONC 35.2 g/dl (32-36); MEAN PLATELET VOLUME 8.7 fL (7.4-10.4); PLATELET COUNT 211 K/uL (130-400); RED BLOOD COUNT 4.83 M/uL (4.7-6.1); WHITE BLOOD COUNT 7.29 K/uL (4.8-10.8)
[2016-07-23 06:23] LABS: ESTIMATED AVERAGE GLUCOSE 131 mg/dl; HA1C FLAG Normal (Normal)
[2016-07-23] MEDS ORDERED: LEVOTHYROXINE 175 MCG TAB PO SCH (06:30)
[2016-07-23 06:44] LABS: BUN/CREATININE RATIO 8.3 (10-20); CALCIUM 8.9 mg/dl (8.5-10.1); CREATININE 1.5 mg/dl (0.60-1.40); MAGNESIUM 2.5 mg/dl (1.8-2.4); POTASSIUM 4.4 mmol/L (3.5-5.1)
[2016-07-23] MEDS: BUDESONIDE/FORMOTEROL FUMARATE 80/4.5 60 PUFFS/INHALER INH SCH (07:12)
[2016-07-23] MEDS: BusPIRone 15 MG TAB PO SCH (07:13)
[2016-07-23] MEDS: CEPHALEXIN MONOHYDRATE 500 MG CAP PO SCH (07:13)
[2016-07-23] MEDS: SULFAMETHOXAZOLE/TRIMETHOPRIM DS 800/160MG TAB PO SCH (07:14)
[2016-07-23] MEDS ORDERED: LORATADINE 10 MG TAB PO SCH (09:00)
[2016-07-23] MEDS ORDERED: ALBUTEROL HFA 8 GM INHALER INH SCH (09:00)
[2016-07-23] MEDS ORDERED: RANITIDINE HCL 150 MG TAB PO SCH (09:00)
[2016-07-23] MEDS ORDERED: ASPIRIN 81 MG ECTAB PO SCH (09:00)
[2016-07-23] MEDS ORDERED: PANTOprazole SOD 40 MG TAB PO SCH (09:00)
[2016-07-23] MEDS ORDERED: POTASSIUM CHLORIDE 20 MEQ TABCR PO SCH (09:00)
[2016-07-23] MEDS ORDERED: MAGNESIUM OXIDE 400 MG TAB PO SCH (09:00)
[2016-07-23] MEDS ORDERED: LISINOPRIL 10 MG TAB PO SCH (09:00)
[2016-07-23] MEDS ORDERED: ZIPRASIDONE 80 MG CAP PO SCH (09:00)
[2016-07-23] MEDS ORDERED: BuPROPion XL 150 MG TABCR PO SCH (09:00)
[2016-07-23] MEDS ORDERED: FUROSEMIDE 40 MG TAB PO SCH (09:00)
--- NOTE | 2016-07-23 11:36 | Discharge Instructions ---
Discharge Instructions Date of Service Jul 23, 2016. Admission Reason for Admission: Hyponatremia,Precordial Chest Pain Discharge Discharge Diagnosis / Problem: Chest pain, hyponatremia Discharge Goals Goal(s): Decrease discomfort, Improve function, Diagnostic testing, Therapeutic intervention Activity Recommendations Activity Limitations: resume your previous activity . Instructions / Follow-Up Instructions / Follow-Up You were admitted to the hospital overnight for observation after presenting to the ED with chest pain. Cardiac monitoring did not reveal any arrhythmias or concerning events, and your lab tests came back normal. Your initial EKG on arrival showed some new changes, so cardiology was consulted. The radiology transcriptionist found that these changes were rate-related, however, and only appeared when your heart was beating at a faster rate. No further testing or intervention was needed. Incidentally, you were also found to have a low serum sodium. This was treated with IV saline solution. Psychiatry was consulted to see if any of your meds were contributing. The psychiatrist suggested that you stop loxapine for now, as this may have caused the low serum sodium. Your lab tests will be sent to Dr. Tamayo who can then decide if you can resume the loxapine. Medications: *Please stop taking your loxapine, as this may have contributed to your low sodium. This will be followed up with Dr. Tamayo. *You may resume your other home medications as prescribed. Follow up: *You will be scheduled to follow up with your primary care provider in 1 week. Please seek medical attention if you experience fevers, chills, sweats, chest pain, shortness of breath, lightheadedness, loss of consciousness, nausea, vomiting, numbness or tingling. Current Hospital Diet Patient's current hospital diet: Regular Diet Discharge Diet Recommended Diet: Regular Diet Pending Studies Studies pending at discharge: no Laboratory Results Hemoglobin A1c Test 07/22/16 07:28 Range/Units Estimated Average Glucose 131 mg/dl Hemoglobin A1c 6.2 H 4.5-5.6 % Medical Emergencies . Who to Call and When: Medical Emergencies: If at any time you feel your situation is an emergency, please call 911 immediately. . Non-Emergent Contact Non-Emergency issues call your: Primary Care Provider Call Non-Emergent contact if: you have a fever, your pain is unusual for you, your pain is concerning you, you have any medication questions . Past History Medical & Surgical History: (1) Precordial chest pain (2) Hypoglycemia (3) Hyponatremia . "Provider Documentation" section prepared by Nicole Khanna. VTE Core Measure Inpt VTE Proph given/why not?: Enoxaparin (Lovenox)RAFAEL, T.E.Kale. Stockings, SCD's
[2016-07-23] MEDS ORDERED: DIVALPROEX 500 MG EXTENDED RELEASE TAB PO SCH (14:00)
--- NOTE | 2016-07-23 14:24 | Discharge Summary ---
Discharge Summary Date of Service Jul 23, 2016. (Nicole Khanna PA-C) Discharge Summary Admission Date: Jul 22, 2016 at 10:03 Discharge Date: Jul 23, 2016 Discharge Disposition: Home Principal Diagnosis: Chest pain, hyponatremia Immunizations: Have You Had Influenza Vaccine: Yes Influenza Vaccine Date: Mar 03, 2013 History of Tetanus Vaccine?: UTD History of Pneumococcal: Yes Pneumococcal Date: Feb 28, 2008 History of Hepatitis B Vaccine: No (Nicole Khanna PA-C) Medication Reconciliation Continued Medications: Albuterol Hfa (Ventolin Hfa) 200 Puffs/70668 Mcg Aers 2 PUFFS INH DAILY, #1 INHALER Aspirin (Aspirin EC Low Dose) 81 Mg Ectab 81 MG PO DAILY Bupropion Hcl (Bupropion Hcl Xl) 150 Mg Tab 150 MG PO QAM, TAB Buspirone Hcl (Buspirone Hcl) 30 Mg Tab 30 MG PO BID Cephalexin Monohydrate (Keflex) 500 Mg Cap 500 MG PO TID for 9 Days, #27 CAP Clonazepam (Klonopin) 1 Mg Tab 1 MG PO DAILY PRN for Anxiety Clonazepam (Klonopin) 1 Mg Tab 2 TAB PO HS, TAB Divalproex Sodium (Depakote Er) 250 Mg Tab 250 MG PO HS TAKE WITH 1500MG = 1750 MG HS Divalproex Sodium (Depakote Er) 500 Mg Tab 2000 MG PO UD, 2 Refills 4 TABLETS IN THE AFTERNOON Divalproex Sodium (Depakote Er) 500 Mg Tab 1500 MG PO HS, 2 Refills TAKE 3 TABLETS WITH 250MG Fluticasone Propionate (Nasal) (Flonase Allergy Relief Ch) 50 Mcg/Act Spr 1 SPRAY SHAWNA DAILY PRN for Nasal Congestion Furosemide (Lasix) 40 Mg Tab 40 MG PO DAILY Levothyroxine Sodium (Levothyroxine Sodium) 175 Mcg Tab 175 MCG PO DAILY Lisinopril (Zestril) 10 Mg Tab 10 MG PO DAILY Loratadine (Claritin) 10 Mg Tab 10 MG PO DAILY, TAB Magnesium Oxide (Mag-Ox) 400 Mg Tab 400 MG PO DAILY Montelukast Sodium (Montelukast Sodium) 10 Mg Tab 10 MG PO HS, 3 Refills Omeprazole (Prilosec) 20 Mg Cap 20 MG PO DAILY, CAP Polyethylene Glycol 3350 (Miralax) 1 Pow Pow 17 GM PO DAILY PRN for Constipation, #255 GM Potassium Ext Rel (Klor-Con) 20 Meq Tabcr 40 MEQ PO DAILY, TAB Pravastatin (Pravachol ) 20 Mg Tab 20 MG PO HS, 0 Refills Ranitidine (Zantac) 150 Mg Tab 150 MG PO DAILY, 0 Refills Sulfa/Trimethoprim (Bactrim Ds 800MG/160MG) Tab 1 TAB PO BID for 9 Days, #18 TAB Ziprasidone Hcl (Geodon) 40 Mg Cap 80 MG PO QAM, CAP Ziprasidone Hcl (Geodon) 80 Mg Cap 160 MG PO HS, CAP Discontinued Medications: Loxapine Succinate (Loxapine Succinate) 50 Mg Cap 150 MG PO HS Discharge Exam Patient reports feeling well and states that he is ready to go home. He denies any chest pain, palpitations, or shortness of breath. The patient did voice some concerns to me regarding a previous admission to the mental health unit in 2007. Patient was then directed to service excellence to address these concerns. The patient denies fevers, chills, sweats, chest pain, palpitations, claudication, cough, wheezing, shortness of breath, nausea, vomiting, abdominal pain, dysuria, hematuria, urinary retention, paralysis, weakness, numbness and tingling. Review of Systems: Constitutional: No chills, No fever, No sweats Eyes: No diplopia, No eye pain, No worsening of vision ENT: No hearing loss, No sore throat, No trouble swallowing Respiratory: No cough, No shortness of breath, No wheezing Cardiovascular: No chest pain, No claudication, No palpitations Abdomen: No nausea, No pain, No vomiting Musculoskeletal: + problem reported (chronic bilateral lymphedema), No calf pain, No joint pain, No muscle pain Genitourinary - Male: No dysuria, No hematuria, No urinary retention Neurologic: No numbness/tingling, No paralysis, No weakness Integumentary: No color change, No itch, No rash Physical Exam: General Appearance: WD/WN, no apparent distress, + obese Eyes: normal inspection, PERRL, EOMI ENT: normal ENT inspection, hearing grossly normal, pharynx normal Neck: supple, no JVD, trachea midline Respiratory/Chest: lungs clear, normal breath sounds, no respiratory distress Cardiovascular: regular rate, rhythm, no gallop, no murmur Abdomen / GI: normal bowel sounds, non tender, soft Extremities: no calf tenderness, + swelling, + pertinent finding (chronic bilateral lymphedema, left greater than right) Neurologic/Psychiatric: alert, oriented x 3, + pertinent finding (pt appeared agitated, voiced several concerns regarding 2007 admission to [facility] stating he was not happy with his stay. directed to service excellence to address these issues) Skin: normal color, warm/dry, no rash (Nicole Khanna ., RADHA) Hospital Course 56 y/o male with a history of bipolar disorder/schizophrenia, HTN, HLD, hypothyroidism, hypomagnesemia, GERD, venous insufficiency/lymphedema, asthma, and h/o DM II who presented to the ED on 07/22 with left-sided CP, SOB, and diaphoresis. Chest pain -Admit to telemetry for observation for cardiac monitoring. No acute events overnight. Patient has remained in sinus rhythm -Cardiac enzymes negative 3 -Initial EKG showed new RBBB and left anterior fascicular block -Cardiology consulted, appreciate recs: RBBB and LAFB are rate-related, not present when rate is well-controlled. No further testing or intervention at this time. -ECHO 06/22/16- The left ventricle is normal in size. The left ventricle is hyperdynamic. Ejection Fraction = 65-70%. The left ventricular wall motion is normal. There is moderate concentric left ventricular hypertrophy. Grade I diastolic dysfunction, (abnormal relaxation pattern). No significant valvular disease. -Continue ASA daily Hyponatremia--resolved -Sodium 126 on arrival -Treated w/ IV NSS -Repeat sodium 134 Left second toe wound -Seen in ED on 07/20, discharged on Bactrim and Keflex x9 days -Continue oral antibiotics -Wound care per nursing staff Bipolar disorder/schizophrenia -Psychiatry consulted, appreciate recs: Discontinue loxapine as this may contribute to hyponatremia. Patient to follow-up with Dr. Tamayo -Continue Bupropion 150 mg PO qam, buspirone 30 mg PO BID, Klonopin 2 mg PO qhs and 1 mg PO qd prn anxiety, Depakote 2000 mg PO afternoon and 1750 PO HS, Geodon 80 mg PO QAM and 160 mg PO HS -Follow up w/ Dr. Tamayo HTN--stable -Continue lisinopril 10 mg PO qd HLD -Continue pravastatin 20 mg PO qd Asthma -Continue albuterol inhaler prn H/o hypomagnesemia -Magnesium elevated at 2.5 -Continue Mag-Ox supplement 400 mg PO qd on discharge Hypothyroidism -Continue Synthroid 175 mcg PO daily -TSH WNL H/o of H0TR--kauzcmo with episodes of hypoglycemia during stay -Denies any recent use of diabetic medication. Demanding regular diet due to frequent hypoglycemic episodes. -Hemoglobin A1c 6.2 on 07/22 -Check BSGs q ac and qhs Venous insufficiency/lymphedema: -Hold Lasix 40 mg PO daily due to hyponatremia/IVF -Resume Lasix on discharge GERD -Continue Protonix 40 mg PO qd DVT prophylaxis -Enoxaparin 40 mg SC q24h -HERNAN landaverde and SCDs Code Status -Level I, FULL RESUSCITATION STATUS Dispo -Patient from home. creative services designer consulted. Patient with concerns about transportation to return home, given taxi voucher. This chart was completed in part utilizing [employer] Speech Voice Recognition software. Attempts were made to minimize the grammatical errors, random word insertions, pronoun errors and incomplete sentences. Any formal questions or concerns about the content, text or information contained within the body of this dictation should be directly addressed to the provider for clarification. Total Time Spent: Greater than 30 minutes This includes examination of the patient, discharge planning, medication reconciliation, and communication with other providers. (Nicole Khanna ., PAWendyC) I personally evaluated this patient and performed a physical exam. I reviewed the orders. I read this discharge summary performed by Nicole Khanna PA-C and agree with its contents in entirety. I know Lam as I have cared for him in the past at this facility. He does seem to me to be a bit more agitated than he was at my last interaction. I think he just wants to get out of the hospital and was awaiting my blessing. He was pleased when I told him he could go home. (Alden Stockton, DO) Discharge Instructions Please refer to the electronic Patient Visit Report (Discharge Instructions) for additional information. (Nicole Khanna ., MICHAELC) Additional Copies To Yohannes Carrillo M.D.
== END 2016-07-23 12:57 | disposition home or self-care (01) ==
LOC: ENRESERVTM → ENRESERVDT → EDBD 06:05 → C.EDA 06:06 → C.MED 10:03 → EDBEDREQ 10:24
PROVIDERS: ADMIT Internal Medicine Endocrinology, Diabetes & Metabolism; ATTEND Internal Medicine Endocrinology, Diabetes & Metabolism
DX: R07.2 Precordial pain (principal); R06.02 Shortness of breath; E87.1 Hypo-osmolality and hyponatremia; E83.42 Hypomagnesemia; S91.105A Unspecified open wound of left lesser toe(s) without damage to nail, initial encounter; X58.XXXA Exposure to other specified factors, initial encounter; F25.0 Schizoaffective disorder, bipolar type; E03.9 Hypothyroidism, unspecified; E78.00 Pure hypercholesterolemia, unspecified; I87.2 Venous insufficiency (chronic) (peripheral); I89.0 Lymphedema, not elsewhere classified; E11.9 Type 2 diabetes mellitus without complications; F31.9 Bipolar disorder, unspecified; K21.9 Gastro-esophageal reflux disease without esophagitis; I10 Essential (primary) hypertension; I45.10 Unspecified right bundle-branch block; Z79.82 Long term (current) use of aspirin; Z87.01 Personal history of pneumonia (recurrent); Z82.49 Family history of ischemic heart disease and other diseases of the circulatory system; Z83.3 Family history of diabetes mellitus

== ENCOUNTER 2016-07-26 00:20 | Emergency (ER) | payer OTHER ==
[~2016-07-26] VITALS: Ht 180.3 cm; Wt 113.8 kg
[~2016-07-26 00:20] MED LIST changes: -DPKSR500 PO; -LOXA50CA PO; -[UNRECOGNIZED DRUG - CODE] PO
[2016-07-26 00:29] VITALS: TEMP 37; Ht 180.3 cm; Wt 113.8 kg
[2016-07-26] MEDS ORDERED: SODIUM CHLORIDE 0.9% 500ML 500 ML IV STA (00:43)
[2016-07-26] MEDS ORDERED: SODIUM CHLORIDE 0.9% 1000ML 1,000 ML IV STA (00:43)
[2016-07-26] MEDS ORDERED: ONDANSETRON INJ 2 MG/ML 2 ML VIAL IV STA (00:43)
--- NOTE | 2016-07-26 00:52 | EMERGENCY ROOM VISIT NOTE ---
History Report prepared by Beny: Jaimie Merino Under the Supervision of: Dr. Kristine Love M.D. 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 The patient states that he has been experiencing nausea, vomiting and some abdominal discomfort. The patient states that he has been taking antibiotics for a left toe injury occurring about 2 weeks ago. He states that he started taking the antibiotics about a week ago. He states that he has been taking them with food. The patient states that he has also been having some chest tightness over his sternum along with some SOB. The patient states that he recently tried to wear compression stocking for an upcoming surgery but it caused some pain and discomfort. 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 A total of 10 systems reviewed and were otherwise negative. Past Medical & Surgical Medical Problems: (1) Altered mental status (2) Asthma (3) Benign hypertension (4) Bilateral lower extremity edema (5) Bipolar disorder (6) Community acquired pneumonia (7) Diabetes (8) Gastroesophageal reflux disease (9) Hypoglycemia (10) Hyponatremia (11) Hypothyroidism (12) Hypoxia (13) Insomnia (14) Knee pain (15) Lymphedema of both lower extremities (16) Pneumonia (17) Pneumonia (18) Rib pain on left side (19) Schizophrenia (20) Sepsis (21) Sepsis (22) SOB (shortness of breath) (23) Soft tissue disorder (24) Unable to void (25) Weakness Family History Diabetes mellitus Gallbladder disease Hypertension Social History Smoking Status: Never Smoker Alcohol Use: none Drug Use: none Marital Status: single Housing Status: lives alone Occupation Status: unemployed Current/Historical Medications Scheduled Albuterol Hfa (Ventolin Hfa), 2 PUFFS INH DAILY Aspirin (Aspirin EC Low Dose), 81 MG PO DAILY Bupropion Hcl (Bupropion Hcl Xl), 150 MG PO QAM Buspirone Hcl (Buspirone Hcl), 30 MG PO BID Cephalexin Monohydrate (Keflex), 500 MG PO TID Clonazepam (Klonopin), 2 TAB PO HS Divalproex Sodium (Depakote Er), 250 MG PO HS Divalproex Sodium (Depakote Er), 2,000 MG PO UD Divalproex Sodium (Depakote Er), 1,500 MG PO HS Furosemide (Lasix), 40 MG PO DAILY Levothyroxine Sodium (Levothyroxine Sodium), 175 MCG PO DAILY Lisinopril (Zestril), 10 MG PO DAILY Loratadine (Claritin), 10 MG PO DAILY Magnesium Oxide (Mag-Ox), 400 MG PO DAILY Montelukast Sodium (Montelukast Sodium), 10 MG PO HS Omeprazole (Prilosec), 20 MG PO DAILY Potassium Ext Rel (Klor-Con), 40 MEQ PO DAILY Pravastatin (Pravachol ), 20 MG PO HS Ranitidine (Zantac), 150 MG PO DAILY Sulfa/Trimethoprim (Bactrim Ds 800MG/160MG), 1 TAB PO BID Ziprasidone Hcl (Geodon), 80 MG PO QAM Ziprasidone Hcl (Geodon), 160 MG PO HS Scheduled PRN Clonazepam (Klonopin), 1 MG PO DAILY PRN for Anxiety Fluticasone Propionate (Nasal) (Flonase Allergy Relief ), 1 SPRAY SHAWNA DAILY PRN for Nasal Congestion Polyethylene Glycol 3350 (Miralax), 17 GM PO DAILY PRN for Constipation Allergies Coded Allergies: No Known Allergies (Verified , 07/26/16) Physical Exam Vital Signs Date Time Temp Pulse Resp B/P Pulse Ox O2 Delivery O2 Flow Rate FiO2 07/26/16 04:06 92 20 119/87 95 07/26/16 02:41 87 24 141/90 97 Room Air 07/26/16 01:17 82 07/26/16 01:10 Room Air 07/26/16 00:29 37.0 91 20 143/91 93 Room Air Physical Exam Vital signs reviewed. General: Well-appearing male, in no significant distress. HEENT: No scleral icterus, PERRLA, neck supple. Atraumatic. Cardiovascular: Regular rate and rhythm, no extra sounds. Pulmonary: Clear to auscultation bilaterally, normal work of breathing. Abdomen: Soft, nontender, nondistended, positive bowel sounds. Musculoskeletal: Atraumatic, marked lymphedema to bilateral lower extremities. Neurologic: Patient awake alert and oriented x 3 Skin: Warm, dry, no rash. Small wound to distal 3rd toe on left foot. No discharge or erythema, nontender. Linear blister to the anterior ankles bilateral lower extremities in the distribution of compression stocking wrinkle Medical Decision & Procedures ER Provider Diagnostic Interpretation: X-ray results as stated below per interpretation by me: Chest/Abdomen X-ray: No focal lung consolidation No failure no evidence of free air fecal retention. Non obstructive gas pattern . Laboratory Results 07/26/16 01:10 Red Blood Count 4.66, Mean Corpuscular Volume 86.1, Mean Corpuscular Hemoglobin 30.5, Mean Corpuscular Hemoglobin Concent 35.4, Mean Platelet Volume 8.4, Neutrophils (%) (Auto) 53.4, Lymphocytes (%) (Auto) 29.0, Monocytes (%) (Auto) 10.1, Eosinophils (%) (Auto) 6.9, Basophils (%) (Auto) 0.1, Neutrophils # (Auto ) 3.95, Lymphocytes # (Auto) 2.15, Monocytes # (Auto) 0.75, Eosinophils # (Auto ) 0.51, Basophils # (Auto) 0.01 07/26/16 01:10 Test 07/26/16 01:10 07/26/16 01:14 White Blood Count 7.41 K/uL (4.8-10.8) Red Blood Count 4.66 M/uL (4.7-6.1) Hemoglobin 14.2 g/dL (14.0-18.0) Hematocrit 40.1 % (42-52) Mean Corpuscular Volume 86.1 fL (80-100) Mean Corpuscular Hemoglobin 30.5 pg (25-34) Mean Corpuscular Hemoglobin Concent 35.4 g/dl (32-36) Platelet Count 182 K/uL (130-400) Mean Platelet Volume 8.4 fL (7.4-10.4) Neutrophils (%) (Auto) 53.4 % Lymphocytes (%) (Auto) 29.0 % Monocytes (%) (Auto) 10.1 % Eosinophils (%) (Auto) 6.9 % Basophils (%) (Auto) 0.1 % Neutrophils # (Auto) 3.95 K/uL (1.4-6.5) Lymphocytes # (Auto) 2.15 K/uL (1.2-3.4) Monocytes # (Auto) 0.75 K/uL (0.11-0.59) Eosinophils # (Auto) 0.51 K/uL (0-0.5) Basophils # (Auto) 0.01 K/uL (0-0.2) RDW Standard Deviation 42.4 fL (36.4-46.3) RDW Coefficient of Variation 13.5 % (11.5-14.5) Immature Granulocyte % (Auto) 0.5 % Immature Granulocyte # (Auto) 0.04 K/uL (0.00-0.02) Anion Gap 8.0 mmol/L (3-11) Est Creatinine Clear Calc Drug Dose 73.8 ml/min Estimated GFR () 63.7 Estimated GFR (Non- 55.0 BUN/Creatinine Ratio 7.9 (10-20) Calcium Level 8.5 mg/dl (8.5-10.1) Magnesium Level 2.1 mg/dl (1.8-2.4) Total Bilirubin 0.2 mg/dl (0.2-1) Direct Bilirubin < 0.1 mg/dl (0-0.2) Aspartate Amino Transf (AST/SGOT) 22 U/L (15-37) Alanine Aminotransferase (ALT/SGPT) 21 U/L (12-78) Alkaline Phosphatase 83 U/L (45-117) Total Protein 6.5 gm/dl (6.4-8.2) Albumin 3.5 gm/dl (3.4-5.0) Lipase 158 U/L (73-393) Bedside Troponin I 0.000 ng/ml (0-0.045) Laboratory results per my review. Medications Administered Medications (Trade) Dose Ordered Sig/Daniel Route Start Time Stop Time Status Last Admin Dose Admin Sodium Chloride 500 ml @ 999 mls/hr Q31M STAT IV 07/26/16 00:43 07/26/16 01:13 DC 07/26/16 01:19 999 MLS/HR Sodium Chloride (Nss 1000ml) 1,000 ml @ 125 mls/hr Q8H STAT IV 07/26/16 00:43 07/26/16 05:38 DC 07/26/16 01:20 125 MLS/HR Ondansetron HCl (Zofran Inj) 4 mg NOW STAT IV 07/26/16 00:43 07/26/16 00:46 DC 07/26/16 01:20 4 MG Magnesium Citrate (Citrate Of Magnesia Soln) 150 ml NOW ONCE PO 07/26/16 03:00 07/26/16 03:01 DC 07/26/16 04:05 150 ML ECG Indication: vomiting Rate (beats per minute): 83 Rhythm: normal sinus Findings: no ectopy, other (Left anterior fascilular block, Nonspecific T wave change anterior lead.) ED Course 0042: Past medical records reviewed. The patient was evaluated in room B9. A complete history and physical examination was performed. 0043: Ordered Zofran Inj 4 mg IV, Sodium Chloride 1,000 ml @ 125 mls/hr IV, Sodium Chloride 500 ml @ 999 mls/hr IV. 0251: I reevaluated the patient and he was hemodynamically stable. 0252: Ordered Bisacodyl 10 mg FL. 0300: Ordered Magnesium Citrate 150 ml PO. 0350: Upon reevaluation, the patient appeared to have improvement of his symptoms. I discussed findings with him. He verbalized agreement of the treatment plan. The patient was discharged home. Medical Decision The patient is a 56 year old male who presents to the ED with complaints of vomiting. Differentials include but is not gastroenteritis, food borne illness , infections, appendicitis, diverticulitis, inflammatory bowel disease, obstruction, GI bleed, biliary pathology, as well as others were entertained. This pt was evaluated and appeared to be in no distress. IV access was obtained and lab work was drawn. Pt was hydrated with NSS and given zofran 4 mg IV. Abd XR series reveals fecal retention. Lab work reveals a chronic hyponatremia. He was advised to hold lasix for 1-2 days. Pt was given mag citrate and d/c home. He will f/u with PCP this week and return to the ED for worsening of symptoms or any medical concerns. Impression Primary Impression: Constipation Additional Impressions: Nausea & vomiting Hyponatremia Scribe Attestation The scribe's documentation has been prepared under my direction and personally reviewed by me in its entirety. I confirm that the note above accurately reflects all work, treatment, procedures, and medical decision making performed by me. Departure Information Dispostion Home / Self-Care Referrals Pro,Yohannes W., M.D. (PCP) Forms HOME CARE DOCUMENTATION FORM, IMPORTANT VISIT INFORMATION, WORK / SCHOOL INSTRUCTIONS Patient Instructions My [facility] [employer] Additional Instructions Diagnosis: Constipation, nausea and vomiting Drink plenty of clear fluids. Increase the fiber and water in your diet. Take the second half of the magnesium citrate bottle tomorrow upon wakening. Follow-up with your physician this week for reevaluation. Return to the ER for worsening of symptoms or any medical concerns. Problem Qualifiers Primary Impression: Constipation Constipation type: slow transit constipation Qualified Codes: K59.01 - Slow transit constipation Additional Impressions: Nausea & vomiting Vomiting type: unspecified Vomiting Intractability: non-intractable Qualified Codes: R11.2 - Nausea with vomiting, unspecified
[2016-07-26 01:34] LABS: BASO % 0.1 %; BASO ABS # 0.01 K/uL (0-0.2); COMPLETE YES; EOS % 6.9 %; HEMATOCRIT 40.1 % (42-52); IG% 0.5 %; LYMPH ABS # 2.15 K/uL (1.2-3.4); MEAN CELL VOLUME 86.1 fL (80-100); MEAN CORPUSCULAR HEMOGLOBIN 30.5 pg (25-34); MEAN CORPUSCULAR HGB CONC 35.4 g/dl (32-36); MEAN PLATELET VOLUME 8.4 fL (7.4-10.4); MONO % 10.1 %; NEUT % 53.4 %; PLATELET COUNT 182 K/uL (130-400); RED BLOOD COUNT 4.66 M/uL (4.7-6.1); WHITE BLOOD COUNT 7.41 K/uL (4.8-10.8)
[2016-07-26 02:21] LABS: ALKALINE PHOSPHATASE 83 U/L (45-117); ALT/SGPT 21 U/L (12-78); BLOOD UREA NITROGEN 11 mg/dl (7-18); BUN/CREATININE RATIO 7.9 (10-20); CALCIUM 8.5 mg/dl (8.5-10.1); CARBON DIOXIDE 26 mmol/L (21-32); CHLORIDE 96 mmol/L (98-107); GLUCOSE 93 mg/dl (70-99)
[2016-07-26 02:25] LABS: POTASSIUM 4.7 mmol/L (3.5-5.1); SODIUM 130 mmol/L (136-145)
[2016-07-26 02:30] LABS: AST/SGOT 22 U/L (15-37); MAGNESIUM 2.1 mg/dl (1.8-2.4)
[2016-07-26] MEDS ORDERED: BISACODYL 10 MG SUPP PR STA (02:52)
[2016-07-26] MEDS ORDERED: MAGNESIUM CITRATE 296 ML/BTL PO ONE (03:00)
[2016-07-26 04:06] VITALS: BP 119/87; PULSE 92; O2SAT 95
--- NOTE | 2016-07-26 06:47 | DIAGNOSTIC IMAGING REPORT ---
ABDOMEN 2VIEW W/PA CHEST RTN CLINICAL HISTORY: vomiting SHORTNESS OF BREATH, NAUSEA, VOMITING. COMPARISON STUDY: Chest x-ray dated 07/22/2016 FINDINGS: The erect chest reveals no free air. There is no focal pulmonary consolidation.] Supine views the abdomen reveal mild fecal retention. There are no abnormally dilated loops of large or small bowel. There are no transition zones indicate bowel obstruction. Pelvic basin calcifications, likely represent phleboliths. IMPRESSION: Mild fecal retention. No evidence of bowel obstruction. No evidence of free air. Electronically signed by: Maverick Tavarez M.D. 07/26/2016 6:46 AM Dictated Date/Time: 07/26/2016 6:45 AM
== END 2016-07-26 04:07 | disposition home or self-care (01) ==
LOC: C.EDB 00:21
DX: K59.00 Constipation, unspecified (principal); R11.2 Nausea with vomiting, unspecified; J45.909 Unspecified asthma, uncomplicated; I10 Essential (primary) hypertension; F31.9 Bipolar disorder, unspecified; E11.9 Type 2 diabetes mellitus without complications; K21.9 Gastro-esophageal reflux disease without esophagitis; E03.9 Hypothyroidism, unspecified; Z79.82 Long term (current) use of aspirin

== ENCOUNTER 2016-08-23 21:49 | Emergency (ER) | payer OTHER ==
[~2016-08-23] VITALS: Ht 180.3 cm; Wt 113.3 kg
[~2016-08-23 21:49] MED LIST changes: -CEPH500C PO; -SULF800T23 PO
[2016-08-23 21:57] VITALS: TEMP 36.7; Ht 180.3 cm; Wt 113.3 kg
--- NOTE | 2016-08-23 22:46 | DIAGNOSTIC IMAGING REPORT ---
CHEST 2 VIEWS ROUTINE CLINICAL HISTORY: possible aspiration COMPARISON STUDY: 07/26/2016 FINDINGS: The heart is the upper limits of normal in size. There is aortic tortuosity/ectasia unchanged the prior study. There is no focal pulmonary consolidation. There are no pleural effusions. There is no pneumothorax. There is no pneumomediastinum.[ IMPRESSION: 1. Stable aortic tortuosity/ectasia. No acute findings. Electronically signed by: Maverick Tavarez M.D. 08/23/2016 10:45 PM Dictated Date/Time: 08/23/2016 10:43 PM
[2016-08-23 23:12] VITALS: BP 155/106; PULSE 80; O2SAT 99
--- NOTE | 2016-08-24 02:32 | EMERGENCY ROOM VISIT NOTE ---
History First contact with patient: 21:54 Chief Complaint: THROAT PAIN/INJURY Stated Complaint: SWALLOWING DIFFICULTY History of Present Illness The patient is a 56 year old male who presents to the Emergency Room with complaints of throat pain that began just prior to arrival. The patient states that he was taking his Lasix pill tonight with a glass of water. As he was starting to drink his water his phone rang and the patient became startled. He had a few episodes of coughing but no vomiting. The patient now has irritation in his throat and is concerned that he may have aspirated his Lasix. The patient does not have other complaints. He rates his discomfort a 3/10. Review of Systems More than 10 systems were reviewed and otherwise negative with the exception of history of present illness. Past Medical/Surgical History Medical Problems: (1) Altered mental status (2) Asthma (3) Benign hypertension (4) Bilateral lower extremity edema (5) Bipolar disorder (6) Community acquired pneumonia (7) Diabetes (8) Gastroesophageal reflux disease (9) Hypoglycemia (10) Hyponatremia (11) Hypothyroidism (12) Hypoxia (13) Insomnia (14) Knee pain (15) Lymphedema of both lower extremities (16) Pneumonia (17) Pneumonia (18) Rib pain on left side (19) Schizophrenia (20) Sepsis (21) Sepsis (22) SOB (shortness of breath) (23) Soft tissue disorder (24) Unable to void (25) Weakness Family History Diabetes mellitus Gallbladder disease Hypertension Social History Smoking Status: Never Smoker Alcohol Use: none Drug Use: none Marital Status: single Housing Status: lives alone Occupation Status: unemployed Current/Historical Medications Scheduled Albuterol Hfa (Ventolin Hfa), 2 PUFFS INH DAILY Aspirin (Aspirin EC Low Dose), 81 MG PO DAILY Bupropion Hcl (Bupropion Hcl Xl), 150 MG PO QAM Buspirone Hcl (Buspirone Hcl), 30 MG PO BID Clonazepam (Klonopin), 2 TAB PO HS Divalproex Sodium (Depakote Er), 250 MG PO HS Divalproex Sodium (Depakote Er), 2,000 MG PO UD Divalproex Sodium (Depakote Er), 1,500 MG PO HS Furosemide (Lasix), 40 MG PO DAILY Levothyroxine Sodium (Levothyroxine Sodium), 175 MCG PO DAILY Lisinopril (Zestril), 10 MG PO DAILY Loratadine (Claritin), 10 MG PO DAILY Magnesium Oxide (Mag-Ox), 400 MG PO DAILY Montelukast Sodium (Montelukast Sodium), 10 MG PO HS Omeprazole (Prilosec), 20 MG PO DAILY Potassium Ext Rel (Klor-Con), 40 MEQ PO DAILY Pravastatin (Pravachol ), 20 MG PO HS Ranitidine (Zantac), 150 MG PO DAILY Ziprasidone Hcl (Geodon), 80 MG PO QAM Ziprasidone Hcl (Geodon), 160 MG PO HS Scheduled PRN Clonazepam (Klonopin), 1 MG PO DAILY PRN for Anxiety Fluticasone Propionate (Nasal) (Flonase Allergy Relief Ch), 1 SPRAY SHAWNA DAILY PRN for Nasal Congestion Polyethylene Glycol 3350 (Miralax), 17 GM PO DAILY PRN for Constipation Allergies Coded Allergies: No Known Allergies (Verified , 07/26/16) Physical Exam Vital Signs Date Time Temp Pulse Resp B/P Pulse Ox O2 Delivery O2 Flow Rate FiO2 08/23/16 23:12 80 18 155/106 99 08/23/16 22:02 95 Room Air 08/23/16 21:57 36.7 85 18 155/106 95 Room Air Pain Rating (0-10): 0 Physical Exam VITALS: Vitals are noted on the nurse's note and reviewed by myself. Vital signs stable. GENERAL: Well-developed, well-nourished, white male, who is in no acute distress and resting comfortably. Patient is cooperative with the examination. HEAD: Normocephalic atraumatic. MOUTH: Mucous membranes moist. Tonsils are not enlarged. Pharynx without erythema, blood, or exudate. Uvula midline. Airway patent. No foreign body in the oropharynx. NECK: Supple without nuchal rigidity. No lymphadenopathy. No thyromegaly. Cervical spine is nontender. No crepitus. HEART: Regular rate and rhythm without murmurs gallops or rubs. LUNGS: Clear to auscultation bilaterally without wheezes, rales or rhonchi. No retractions or accessory muscle use. Medical Decision & Procedures ER Provider Diagnostic Interpretation: CHEST 2 VIEWS ROUTINE CLINICAL HISTORY: possible aspiration COMPARISON STUDY: 07/26/2016 FINDINGS: The heart is the upper limits of normal in size. There is aortic tortuosity/ectasia unchanged the prior study. There is no focal pulmonary consolidation. There are no pleural effusions. There is no pneumothorax. There is no pneumomediastinum.[ IMPRESSION: 1. Stable aortic tortuosity/ectasia. No acute findings. ED Course Physical exam and history were performed. Nursing notes and EMR were reviewed. Patient appears to have had an episode of coughing while taking his evening medicines tonight. There is no foreign body in the oropharynx. The patient does not appear toxic or in respiratory distress. I did elect to perform a chest x-ray which does not show any obvious aspiration or additional pathology. The patient was relieved with this and is felt ready for discharge home. The patient was invited back to the ER with any new, worsening, or concerning symptoms. The chart was completed utilizing [employer] Voice Recognition Software. Grammatical errors, random word insertions, pronoun errors, and incomplete sentences are an occasional consequence of this system due to software limitations, ambient noise, and hardware issues. Any formal questions or concerns about the content, text, or information contained within the body of this dictation should be directly addressed to the provider for clarification. . Medical Decision Differential diagnosis includes, but is not limited to: Esophagitis, foreign body, aspiration, anxiety, and others Impression Primary Impression: Pill esophagitis Departure Information Dispostion Home / Self-Care Condition GOOD Forms HOME CARE DOCUMENTATION FORM, IMPORTANT VISIT INFORMATION Patient Instructions My [facility] Additional Instructions You were seen and evaluated today on an emergency basis only. This is not a substitute for, or an effort to provide, complete comprehensive medical care. It is not possible to recognize and treat all injuries or illnesses in a single emergency department visit. For this reason it is recommended that you followup with your primary care physician with any ongoing or persistent symptoms. You are welcome to return to the emergency department anytime with new, worsening, or concerning symptoms.
== END 2016-08-23 23:10 | disposition home or self-care (01) ==
LOC: EDBD 21:49 → C.EDA 21:52
DX: K20.8 Other esophagitis (principal); J45.909 Unspecified asthma, uncomplicated; I10 Essential (primary) hypertension; F31.9 Bipolar disorder, unspecified; E11.9 Type 2 diabetes mellitus without complications; K21.9 Gastro-esophageal reflux disease without esophagitis; E87.1 Hypo-osmolality and hyponatremia; E03.9 Hypothyroidism, unspecified; G47.00 Insomnia, unspecified; I89.0 Lymphedema, not elsewhere classified; F20.9 Schizophrenia, unspecified; Z83.3 Family history of diabetes mellitus; Z83.79 Family history of other diseases of the digestive system; Z82.49 Family history of ischemic heart disease and other diseases of the circulatory system; Z79.82 Long term (current) use of aspirin; Z79.899 Other long term (current) drug therapy

== ENCOUNTER → 2016-09-28 | Outpatient (CLI) | payer OTHER ==
[~2016-09-28] MED LIST changes: +CEPH500C2 PO; +ECON118C TOP; +ESCI10TA17 PO; +FLUO20CA20 PO; +GLC500 PO; +GLC850 PO; +LEVO1TAB33 PO; +NAPR-1169 PO; +PRED20TA PO; +SENN1TAB65 PO; +SULF400T7 PO; +SYMIN160 INH; +TRAM-10 PO; +VGR50 PO; +[UNRECOGNIZED DRUG - CODE] PO
[2016-09-28 18:18] LABS: COMPLETE YES; EOS % 1.6 %; HEMATOCRIT 43.2 % (42-52); IG% 0.5 %; LYMPH ABS # 2.47 K/uL (1.2-3.4); MEAN CELL VOLUME 91.1 fL (80-100); MEAN CORPUSCULAR HEMOGLOBIN 29.7 pg (25-34); MEAN CORPUSCULAR HGB CONC 32.6 g/dl (32-36); MEAN PLATELET VOLUME 8.7 fL (7.4-10.4); MONO % 9.4 %; NEUT % 48.5 %; PLATELET COUNT 207 K/uL (130-400); RED BLOOD COUNT 4.74 M/uL (4.7-6.1); WHITE BLOOD COUNT 6.18 K/uL (4.8-10.8)
[2016-09-28 18:42] LABS: ALT/SGPT 21 U/L (12-78); AST/SGOT 22 U/L (15-37); BLOOD UREA NITROGEN 13 mg/dl (7-18); BUN/CREATININE RATIO 10.1 (10-20); CALCIUM 8.1 mg/dl (8.5-10.1); CARBON DIOXIDE 27 mmol/L (21-32); CHLORIDE 103 mmol/L (98-107); GLUCOSE 128 mg/dl (70-99); POTASSIUM 4.2 mmol/L (3.5-5.1); SODIUM 137 mmol/L (136-145)
[2016-09-28 18:45] LABS: ALB/GLOB RATIO 1.1 (0.9-2); ALKALINE PHOSPHATASE 83 U/L (45-117)
== END | disposition home or self-care (01) ==
LOC: C.LAB 17:32
PROVIDERS: ATTEND Psychologist Clinical
DX: E87.1 Hypo-osmolality and hyponatremia (principal); J45.909 Unspecified asthma, uncomplicated; Z79.899 Other long term (current) drug therapy

== ENCOUNTER 2016-11-28 15:13 | Emergency (ER) | payer OTHER ==
[~2016-11-28] VITALS: Ht 182.9 cm; Wt 101.4 kg
[~2016-11-28 15:13] MED LIST changes: -CEPH500C2 PO; -ECON118C TOP; -ESCI10TA17 PO; -FLUO20CA20 PO; -GLC500 PO; -GLC850 PO; -LEVO1TAB33 PO; -NAPR-1169 PO; -PRED20TA PO; -SENN1TAB65 PO; -SULF400T7 PO; -SYMIN160 INH; -TRAM-10 PO; -VGR50 PO; -[UNRECOGNIZED DRUG - CODE] PO
[2016-11-28 15:22] VITALS: TEMP 36.6; Ht 182.9 cm; Wt 101.4 kg
[2016-11-28 16:21] LABS: COMPLETE YES; EOS % 1.3 %; HEMATOCRIT 46.5 % (42-52); IG% 0.3 %; LYMPH % 39.5 %; LYMPH ABS # 2.68 K/uL (1.2-3.4); MEAN CELL VOLUME 91.2 fL (80-100); MEAN PLATELET VOLUME 9.1 fL (7.4-10.4); MONO % 12.8 %; NEUT % 46.1 %; PLATELET COUNT 185 K/uL (130-400); WHITE BLOOD COUNT 6.78 K/uL (4.8-10.8)
[2016-11-28 16:32] LABS: URINE APPEARANCE CLEAR (CLEAR); URINE BILIRUBIN NEG (NEG); URINE COLOR YELLOW; URINE NITRITE NEG (NEG); URINE PH 6.5 (4.5-7.5); URINE SPECIFIC GRAVITY 1.015 (1.000-1.030); UROBILINOGEN NEG (NEG)
[2016-11-28 16:35] LABS: MANUAL MICROSCOPIC REQUIRED? NO; REVIEW REQ? NO
[2016-11-28 16:35] LABS: BUN/CREATININE RATIO 12.6 (10-20); CALCIUM 9.3 mg/dl (8.5-10.1); CREATININE 1.6 mg/dl (0.60-1.40); POTASSIUM 4.4 mmol/L (3.5-5.1)
[2016-11-28 16:46] LABS: THYROID STIMULATING HORMONE 2.28 uIu/ml (0.300-4.500)
[2016-11-28 17:09] LABS: BENZODIAZEPINE, URINE NEG (NEG); COCAINE,URINE NEG (NEG); PHENCYCLIDINE, URINE NEG (NEG)
--- NOTE | 2016-11-28 17:19 | EMERGENCY ROOM VISIT NOTE ---
History Report prepared by Beny: Melania Reis Under the Supervision of: Dr. Yohannes Contreras D.O. First contact with patient: 15:35 Chief Complaint: MENTAL HEALTH EVALUATION Stated Complaint: MENTAL HEALTH EVAL. History of Present Illness The patient is a 56 year old male who presents to the Emergency Room with complaints of sudden suicidal threats that were made today prior to arrival. Per nursing staff from the patient's PCP's office, the patient was seen in their office one week ago and inquired about home health aids. The nursing staff reports that the patient was denied home health aids because of a miscommunication. The nursing staff reports that the patient goes to [facility] for physical therapy. The nursing staff states that the patient made a comment on the phone that if he does not get help right now, he is going to kill himself. The nursing staff states that they asked what his plan would be, and the patient stated various ideas, but had no solid plan. The nursing staff the patient has a history of bilateral lower extremity lymphedema and has difficulty ambulating due to his pain. The nursing staff reports that the patient has a history of bi-polar, but states that the patient is typically very friendly. Nursing staff reports that the patient is acting abnormal today. Nursing staff states that the crisis center was called and they then called the patient. Nursing staff states that the patient denied any services and hung up. Nursing staff states that this is when 911 was called and the police arrived to bring the patient to the emergency department. The patient states that today he could barely get from his chair to the kitchen without falling several times. He states that Home Health could not provide services for the patient because he was too long. The patient states that he has been experiencing chronic lymphedema for the past 15 years and reports medication compliance. He reports a previous psych evaluation in the hospital 9 years ago. The patient states that his medications have been changed multiple times over the last six months. The patient denies any suicidal or homicidal ideation at this time. Source of History: patient, nursing staff Onset: prior to arrival Position: other (global) Quality: other (suicidal threats) Timing: other (sudden) Review of Systems See HPI for pertinent positives & negatives. A total of 10 systems reviewed and were otherwise negative. Past Medical & Surgical Medical Problems: (1) Altered mental status (2) Asthma (3) Benign hypertension (4) Bilateral lower extremity edema (5) Bipolar disorder (6) Community acquired pneumonia (7) Diabetes (8) Gastroesophageal reflux disease (9) Hypoglycemia (10) Hyponatremia (11) Hypothyroidism (12) Hypoxia (13) Insomnia (14) Knee pain (15) Lymphedema of both lower extremities (16) Pneumonia (17) Pneumonia (18) Rib pain on left side (19) Schizophrenia (20) Sepsis (21) Sepsis (22) SOB (shortness of breath) (23) Soft tissue disorder (24) Unable to void (25) Weakness Family History Diabetes mellitus Gallbladder disease Hypertension Social History Smoking Status: Never Smoker Alcohol Use: none Drug Use: none Marital Status: single Housing Status: lives alone Occupation Status: unemployed Current/Historical Medications Scheduled Albuterol Hfa (Ventolin Hfa), 2 PUFFS INH QID Aspirin (Aspirin EC Low Dose), 81 MG PO DAILY Budesonide/Formoterol Fumarate (Symbicort 160/4.5 Inhaler ), 2 PUFFS INH BID Bupropion Hcl (Bupropion Hcl Xl), 150 MG PO QAM Buspirone Hcl (Buspirone Hcl), 30 MG PO BID Cephalexin Monohydrate (Keflex), 500 MG PO TID Clonazepam (Klonopin), 2 TAB PO HS Divalproex Sodium (Depakote Er), 250 MG PO HS Divalproex Sodium (Depakote Er), 2,000 MG PO UD Divalproex Sodium (Depakote Er), 1,500 MG PO HS Divalproex Sodium (Depakote Er), 3 TAB PO 1700 Econazole Nitrate (Econazole Nitrate), 0 TOP DAILY Fluoxetine Hcl (Pmdd) (Fluoxetine), 1 CAP PO HS Furosemide (Lasix), 40 MG PO DAILY Levothyroxine Sodium (Levothyroxine Sodium), 175 MCG PO DAILY Lisinopril (Zestril), 10 MG PO DAILY Loratadine (Claritin), 10 MG PO DAILY Loxapine Succinate (Loxapine), 150 MG PO DAILY Magnesium Oxide (Mag-Ox), 400 MG PO DAILY Metformin HCl (Metformin HCl), 500 MG PO BIDM Metformin HCl (Metformin HCl), 850 MG PO BIDM Montelukast Sodium (Montelukast Sodium), 10 MG PO HS Omeprazole (Prilosec), 20 MG PO QAM Potassium Ext Rel (Klor-Con), 40 MEQ PO DAILY Pravastatin (Pravachol ), 20 MG PO HS Prednisone (Prednisone), 2 TAB PO DAILY Ranitidine (Zantac), 150 MG PO BID Sennosides-Docusate Sodium (Senna Plus), 1-2 TABS PO QAM Sildenafil Citrate (Viagra), 50 MG PO PRN Sulfamethoxazole-Trimethoprim (Bactrim 400MG/80MG), 1 TAB PO Q12H Ziprasidone Hcl (Geodon), 40 MG PO BID Ziprasidone Hcl (Geodon), 80 MG PO BID Scheduled PRN Clonazepam (Klonopin), 1 MG PO TID PRN for Anxiety Fluticasone Propionate (Nasal) (Flonase Allergy Relief ), 1 SPRAY [place] DAILY PRN for Nasal Congestion Naproxen (Naprosyn), 500 MG PO BID PRN for Pain Polyethylene Glycol 3350 (Miralax), 17 GM PO DAILY PRN for Constipation Tramadol (Ultram), 50 MG PO Q4-6HRS PRN for Pain Allergies Coded Allergies: No Known Allergies (Verified , 07/26/16) Physical Exam Vital Signs Date Time Temp Pulse Resp B/P (MAP) Pulse Ox O2 Delivery O2 Flow Rate FiO2 11/28/16 20:36 88 18 129/89 94 11/28/16 15:22 36.6 84 18 139/105 93 Room Air Physical Exam GENERAL: Patient is awake, alert, very anxious and guarded apperaing, appears angry. EYES: The conjunctivae are clear. The pupils are round and reactive. EARS, NOSE, MOUTH AND THROAT: The nose is without any evidence of any deformity. Mucous membranes are moist tongue is midline NECK: The neck is nontender and supple. RESPIRATORY: Normal respiratory effort is noted there is no evidence of wheezing rhonchi or rales CARDIOVASCULAR: Regular rate and rhythm noted there no murmurs rubs or gallops normal S1 normal S2 GASTROINTESTINAL: The abdomen is soft. Bowel sounds are present in all quadrants. Abdomen is nontender MUSCULOSKELETAL/EXTREMITIES: There is no evidence of gross deformity full range of motion is noted in the hips and shoulders SKIN: Lymphedema in both lower extremities, no signs of cellulitis. NEUROLOGIC: Patient is awake alert and oriented x3. PSYCH: Currently denying any suicidal or homicidal ideation. Appears guarded and angry. Medical Decision & Procedures ER Provider Diagnostic Interpretation: X-ray results as stated below per interpretation by me and the radiologist. CHEST ONE VIEW PORTABLE CLINICAL HISTORY: edema pain. Dyspnea. COMPARISON STUDY: 08/23/2016 FINDINGS: The bones soft tissues and hemidiaphragms are normal. The cardiomediastinal silhouette is normal. The lungs are clear. The pulmonary vasculature is normal. IMPRESSION: Negative chest. The above report was generated using voice recognition software. It may contain grammatical, syntax or spelling errors. Electronically signed by: Jean Marie Prather M.D. 11/28/2016 5:26 PM Dictated Date/Time: 11/28/2016 5:26 PM Laboratory Results 11/28/16 16:06 Red Blood Count 5.10, Mean Corpuscular Volume 91.2, Mean Corpuscular Hemoglobin 31.0, Mean Corpuscular Hemoglobin Concent 34.0, Mean Platelet Volume 9.1, Neutrophils (%) (Auto) 46.1, Lymphocytes (%) (Auto) 39.5, Monocytes (%) (Auto) 12.8, Eosinophils (%) (Auto) 1.3, Basophils (%) (Auto) 0.0, Neutrophils # (Auto ) 3.12, Lymphocytes # (Auto) 2.68, Monocytes # (Auto) 0.87, Eosinophils # (Auto ) 0.09, Basophils # (Auto) 0.00 11/28/16 16:06 Test 11/28/16 16:00 11/28/16 16:06 11/28/16 18:08 Urine Color YELLOW Urine Appearance CLEAR (CLEAR) Urine pH 6.5 (4.5-7.5) Urine Specific [place] 1.015 (1.000-1.030) Urine Protein NEG (NEG) Urine Glucose (UA) NEG (NEG) Urine Ketones NEG (NEG) Urine Occult Blood NEG (NEG) Urine Nitrite NEG (NEG) Urine Bilirubin NEG (NEG) Urine Urobilinogen NEG (NEG) Urine Leukocyte Esterase NEG (NEG) Urine Opiates Screen NEG (NEG) Urine Methadone, Qualitative NEG (NEG) Urine Barbiturates NEG (NEG) Urine Phencyclidine (PCP) Level NEG (NEG) Ur Amphetamine/Methamphetamine NEG (NEG) MDMA (Ecstasy) Screen POS (NEG) Urine Benzodiazepines Screen NEG (NEG) Urine Cocaine Metabolite NEG (NEG) Urine Marijuana (THC) NEG (NEG) White Blood Count 6.78 K/uL (4.8-10.8) Red Blood Count 5.10 M/uL (4.7-6.1) Hemoglobin 15.8 g/dL (14.0-18.0) Hematocrit 46.5 % (42-52) Mean Corpuscular Volume 91.2 fL (80-100) Mean Corpuscular Hemoglobin 31.0 pg (25-34) Mean Corpuscular Hemoglobin Concent 34.0 g/dl (32-36) Platelet Count 185 K/uL (130-400) Mean Platelet Volume 9.1 fL (7.4-10.4) Neutrophils (%) (Auto) 46.1 % Lymphocytes (%) (Auto) 39.5 % Monocytes (%) (Auto) 12.8 % Eosinophils (%) (Auto) 1.3 % Basophils (%) (Auto) 0.0 % Neutrophils # (Auto) 3.12 K/uL (1.4-6.5) Lymphocytes # (Auto) 2.68 K/uL (1.2-3.4) Monocytes # (Auto) 0.87 K/uL (0.11-0.59) Eosinophils # (Auto) 0.09 K/uL (0-0.5) Basophils # (Auto) 0.00 K/uL (0-0.2) RDW Standard Deviation 47.4 fL (36.4-46.3) RDW Coefficient of Variation 14.2 % (11.5-14.5) Immature Granulocyte % (Auto) 0.3 % Immature Granulocyte # (Auto) 0.02 K/uL (0.00-0.02) Anion Gap 4.0 mmol/L (3-11) Est Creatinine Clear Calc Drug Dose 62.0 ml/min Estimated GFR () 54.2 Estimated GFR (Non- 46.8 BUN/Creatinine Ratio 12.6 (10-20) Calcium Level 9.3 mg/dl (8.5-10.1) Total Bilirubin 0.3 mg/dl (0.2-1) Direct Bilirubin 0.1 mg/dl (0-0.2) Aspartate Amino Transf (AST/SGOT) 27 U/L (15-37) Alanine Aminotransferase (ALT/SGPT) 28 U/L (12-78) Alkaline Phosphatase 97 U/L (45-117) Total Protein 7.3 gm/dl (6.4-8.2) Albumin 3.6 gm/dl (3.4-5.0) Thyroid Stimulating Hormone (TSH) 2.280 uIu/ml (0.300-4.500) Valproic Acid (Depakene) Level 106 mcg/ml (50-100) Ethyl Alcohol mg/dL < 3.0 mg/dl (0-3) Bedside Glucose 79 mg/dl (70-99) Laboratory results per my review. ED Course 1546: The patient was evaluated in room A6. A complete history and physical examination were performed. 2001: I reevaluated the patient and he is doing well. I discussed all the exam findings with him and I discussed the treatment plan. He verbalized complete understanding and agreement. He is ready to go home. Medical Decision Differential diagnosis: Etiologies such as mood disorder, infection, hypoglycemia, electrolyte abnormalities, cardiac sources, intracerebral event, toxicologic, neurologic, as well as others were entertained. Nursing notes reviewed. Additional history is obtained from the patient's primary care physician's office as well as the police. The patient is a 56-year-old male who presented to the emergency department for mental health evaluation. The patient is a history of chronic lymphedema. He has significant difficulty ambulating as well as living alone. He's been trying to set up with home health as well as agencies to help him with his daily activities. He's been very frustrated recently because this condition is getting worse and is not getting much help at home. He is made suicidal thoughts known to his office staff which appear to be made out of frustration. The patient presented to the emergency department for a mental health evaluation. A 302 petition was made. The patient was medically cleared in the emergency department and evaluated by the mental health case briefer. The patient does not appear to be actively suicidal and does not appear to be a threat to himself or others rather I feel he is very frustrated with the situation. He was encouraged to continue all medications as prescribed and call his primary care physician and schedule follow-up appointment. He is also encouraged call crisis or return to the emergency apartment immediately if symptoms change worsen or the need arises. Medication Reconcilliation Current Medication List: was personally reviewed by me Blood Pressure Screening Patient's blood pressure: Elevated blood pressure Blood pressure disposition: Elevated BP felt to be situational, Did not require urgent referral Impression Primary Impression: Anxiety Additional Impressions: Suicidal ideation Chronic acquired lymphedema Scribe Attestation The scribe's documentation has been prepared under my direction and personally reviewed by me in its entirety. I confirm that the note above accurately reflects all work, treatment, procedures, and medical decision making performed by me. Departure Information Dispostion Home / Self-Care Referrals ProYohannes M.D. (PCP) Forms HOME CARE DOCUMENTATION FORM, IMPORTANT VISIT INFORMATION Patient Instructions Anxiety Disorder, ED Lymphedema, My [facility] Additional Instructions Continue all medications as prescribed. Call crisis or return to the emergency Department immediately if symptoms change worsen or the need arises. Problem Qualifiers
--- NOTE | 2016-11-28 17:28 | DIAGNOSTIC IMAGING REPORT ---
CHEST ONE VIEW PORTABLE CLINICAL HISTORY: edema pain. Dyspnea. COMPARISON STUDY: 08/23/2016 FINDINGS: The bones soft tissues and hemidiaphragms are normal. The cardiomediastinal silhouette is normal. The lungs are clear. The pulmonary vasculature is normal. IMPRESSION: Negative chest. The above report was generated using voice recognition software. It may contain grammatical, syntax or spelling errors. Electronically signed by: Jean Marie Prather M.D. 11/28/2016 5:26 PM Dictated Date/Time: 11/28/2016 5:26 PM
[2016-11-28] MEDS ORDERED: DIVA500T3 PO (17:39)
[2016-11-28] MEDS ORDERED: NAPR-1169 PO (17:39)
[2016-11-28] MEDS ORDERED: GLC500 PO (17:39)
[2016-11-28] MEDS ORDERED: CEPH500C2 PO (17:39)
[2016-11-28] MEDS ORDERED: LEVO1TAB33 PO (17:39)
[2016-11-28] MEDS ORDERED: ECON118C TOP (17:39)
[2016-11-28] MEDS ORDERED: PRED20TA PO (17:39)
[2016-11-28] MEDS ORDERED: [UNRECOGNIZED DRUG - CODE] PO (17:39)
[2016-11-28] MEDS ORDERED: FLUO20CA20 PO (17:39)
[2016-11-28] MEDS ORDERED: GLC850 PO (17:39)
[2016-11-28] MEDS ORDERED: VGR50 PO (17:58)
[2016-11-28] MEDS ORDERED: SENN1TAB65 PO (17:58)
[2016-11-28] MEDS ORDERED: SYMIN160 INH (17:58)
[2016-11-28] MEDS ORDERED: SULF400T7 PO (17:58)
[2016-11-28] MEDS ORDERED: TRAM-10 PO (17:58)
[2016-11-28 20:36] VITALS: BP 129/89; PULSE 88; O2SAT 94
== END 2016-11-28 20:36 | disposition home or self-care (01) ==
LOC: EDBD 15:13 → C.EDA 15:14
DX: F41.9 Anxiety disorder, unspecified (principal); R45.851 Suicidal ideations; I89.0 Lymphedema, not elsewhere classified; J45.909 Unspecified asthma, uncomplicated; I10 Essential (primary) hypertension; K21.9 Gastro-esophageal reflux disease without esophagitis; E11.9 Type 2 diabetes mellitus without complications; F31.9 Bipolar disorder, unspecified; F20.9 Schizophrenia, unspecified; E03.9 Hypothyroidism, unspecified; Z87.01 Personal history of pneumonia (recurrent); Z79.82 Long term (current) use of aspirin; Z79.84 Long term (current) use of oral hypoglycemic drugs; Z79.899 Other long term (current) drug therapy

== ENCOUNTER 2016-12-04 18:36 | Emergency (ER) | payer OTHER ==
[~2016-12-04] VITALS: Ht 180.3 cm; Wt 113.5 kg
[~2016-12-04 18:36] MED LIST changes: +CEPH500C2 PO; +ECON118C TOP; +FLUO20CA20 PO; +GLC500 PO; +GLC850 PO; +NAPR-1169 PO; +PRED20TA PO; +SENN1TAB65 PO; +SULF400T7 PO; +SYMIN160 INH; +TRAM-10 PO; +VGR50 PO; +[UNRECOGNIZED DRUG - CODE] PO
[2016-12-04 18:38] VITALS: TEMP 36.8; Ht 180.3 cm; Wt 113.5 kg
[2016-12-04] MEDS ORDERED: SODIUM CHLORIDE 0.9% 1000ML 1,000 ML IV STA (19:13)
[2016-12-04] MEDS ORDERED: SODIUM CHLORIDE 0.9% 1000ML 1,000 ML IV ONE (19:13)
--- NOTE | 2016-12-04 19:20 | EMERGENCY ROOM VISIT NOTE ---
History Report prepared by Beny: Fazal Griggs Under the Supervision of: Dr. Joe Foster M.D. First contact with patient: 19:03 Chief Complaint: FALL Stated Complaint: FALLING, CANT STAND UP, HYPOGLYCEMIC History of Present Illness The patient is a 56 year old diabetic male who presents to the Emergency Room with complaints of multiple mechanical falls that occurred today. He says that his legs have been getting increasingly weak over the past few days. The patient says that he fell 3 times today. He states that he woke up this morning feeling okay, but he fell right onto the floor after getting out of bed and could not get up. The patient states that he had to reach for his phone on his recliner, and called 911. He was picked up but decided that he did not want to come here. The patient says that his embedded case manager came in the afternoon, and shortly thereafter he fell again. He does not know why he fell, and he says that he may have hit his head because his head hurts currently. The patient states that he has a bit of coccyx pain as well. He says that he is weak and still cannot walk without crutches. He denies any feelings of passing out. Per the nursing staff, the patient's blood sugar is 80. The patient denies any fevers, chills, nausea, vomiting, numbness, or worsening leg swelling. He says that he has been compliant with all his medications. The patient has bipolar, but he denies any feelings of depression or attempts to hurt himself recently. He says that he was suggested by his doctors to get physical therapy at [facility] for his leg weakness. Source of History: patient, nursing staff Onset: Today Position: other (global - falls) Symptom Intensity: 3 falls today Quality: other (mechanical) Associated Symptoms: + headache, + back pain, + weakness (legs), No fevers, No chills, No nausea, No vomiting, No numbness Note: Associated symptoms: Denies any worsening leg swelling. Review of Systems See HPI for pertinent positives & negatives. A total of 10 systems reviewed and were otherwise negative. Past Medical & Surgical Medical Problems: (1) Altered mental status (2) Asthma (3) Benign hypertension (4) Bilateral lower extremity edema (5) Bipolar disorder (6) Community acquired pneumonia (7) Diabetes (8) Gastroesophageal reflux disease (9) Hypoglycemia (10) Hyponatremia (11) Hypothyroidism (12) Hypoxia (13) Insomnia (14) Knee pain (15) Lymphedema of both lower extremities (16) Pneumonia (17) Pneumonia (18) Rib pain on left side (19) Schizophrenia (20) Sepsis (21) Sepsis (22) SOB (shortness of breath) (23) Soft tissue disorder (24) Unable to void (25) Weakness Old medical records were reviewed. Nurse's notes were reviewed and I agree with. Family History Diabetes mellitus Gallbladder disease Hypertension Social History Smoking Status: Never Smoker Alcohol Use: none Drug Use: none Marital Status: single Housing Status: lives alone Occupation Status: unemployed Current/Historical Medications Scheduled Albuterol Hfa (Ventolin Hfa), 2 PUFFS INH QID Aspirin (Aspirin EC Low Dose), 81 MG PO DAILY Budesonide/Formoterol Fumarate (Symbicort 160/4.5 Inhaler ), 2 PUFFS INH BID Bupropion Hcl (Bupropion Hcl Xl), 150 MG PO QAM Buspirone Hcl (Buspirone Hcl), 30 MG PO BID Cephalexin Monohydrate (Keflex), 500 MG PO TID Clonazepam (Klonopin), 2 TAB PO HS Divalproex Sodium (Depakote Er), 250 MG PO HS Divalproex Sodium (Depakote Er), 2,000 MG PO UD Divalproex Sodium (Depakote Er), 1,500 MG PO HS Divalproex Sodium (Depakote Er), 3 TAB PO 1700 Econazole Nitrate (Econazole Nitrate), 0 TOP DAILY Escitalopram (Lexapro), 10 MG PO DAILY Fluoxetine Hcl (Pmdd) (Fluoxetine), 1 CAP PO HS Furosemide (Lasix), 40 MG PO DAILY Levothyroxine Sodium (Levothyroxine Sodium), 175 MCG PO DAILY Lisinopril (Zestril), 10 MG PO DAILY Loratadine (Claritin), 10 MG PO DAILY Loxapine Succinate (Loxapine), 150 MG PO DAILY Magnesium Oxide (Mag-Ox), 400 MG PO DAILY Metformin HCl (Metformin HCl), 500 MG PO BIDM Metformin HCl (Metformin HCl), 850 MG PO BIDM Montelukast Sodium (Montelukast Sodium), 10 MG PO HS Omeprazole (Prilosec), 20 MG PO QAM Potassium Ext Rel (Klor-Con), 40 MEQ PO DAILY Pravastatin (Pravachol ), 20 MG PO HS Prednisone (Prednisone), 2 TAB PO DAILY Ranitidine (Zantac), 150 MG PO BID Sennosides-Docusate Sodium (Senna Plus), 1-2 TABS PO QAM Sildenafil Citrate (Viagra), 50 MG PO PRN Sulfamethoxazole-Trimethoprim (Bactrim 400MG/80MG), 1 TAB PO Q12H Ziprasidone Hcl (Geodon), 40 MG PO BID Ziprasidone Hcl (Geodon), 80 MG PO BID Scheduled PRN Clonazepam (Klonopin), 1 MG PO TID PRN for Anxiety Fluticasone Propionate (Nasal) (Flonase Allergy Relief ), 1 SPRAY SHAWNA DAILY PRN for Nasal Congestion Naproxen (Naprosyn), 500 MG PO BID PRN for Pain Polyethylene Glycol 3350 (Miralax), 17 GM PO DAILY PRN for Constipation Tramadol (Ultram), 50 MG PO Q4-6HRS PRN for Pain Allergies Coded Allergies: No Known Allergies (Verified , 12/04/16) Physical Exam Vital Signs Date Time Temp Pulse Resp B/P (MAP) Pulse Ox O2 Delivery O2 Flow Rate FiO2 12/04/16 22:25 78 20 122/78 98 12/04/16 21:13 78 20 126/90 96 Room Air 12/04/16 20:34 81 12/04/16 20:23 80 20 127/91 95 Room Air 12/04/16 18:38 36.8 85 18 119/80 90 Room Air Physical Exam General: Well developed well nourished non ill appearing older male in no acute distress, breathing comfortably on room air. Normal speech HEENT: Normal cephalic atraumatic. Pupils are equal round and reactive to light. Extraocular movements are intact. Oropharynx is pink with moist mucous membranes. No swelling of the mouth lips or tongue. Neck: Supple with a midline trachea. No meningeal signs or stiffness, no JVD or bruits. No Stridor. Chest: Clear to auscultation bilaterally. No wheezes or rhonchi. No increased work of breathing. Heart: regular rate and rhythm. Abdomen: Soft nontender, nondistended without rebound guarding or rigidity. Extremities: No cyanosis or clubbing. Chronic lymphedema of legs. Spine/Back. Non tender to palpation. No CVA tenderness Skin: Good turgor without rashes. Neurologic exam: Cranial nerves two through 12 are intact. Motor and sensation are intact and symmetrical throughout. Medical Decision & Procedures ER Provider Diagnostic Interpretation: Radiology results as stated below per my review and radiologist interpretation: LUMBAR SPINE WITHOUT HISTORY: 56 years-old Male eval for trauma acute back injury. COMPARISON: CT abdomen and pelvis of same day, CT abdomen and pelvis 11/02/2014 TECHNIQUE: Multiple axial CT images of the lumbar spine were obtained without IV contrast. Coronal and sagittal reformatted images were obtained from the axial data set and cemented for review. A dose lowering technique was used consistent with the principals of ALARA. FINDINGS: Vertebral body heights are well-maintained without evidence of acute compression deformity. There is no acute fracture or dislocation identified. The imaged sacrum also appears intact. There is a 2 mm noncalcified pulmonary nodule the right lung base. There is a calcified granuloma of the left lung base. No acute intra-abdominal or intrapelvic abnormality is seen. There is mild levoscoliosis. Multiple Schmorl's nodes are again seen without significant change from comparison study. Severe multilevel facet arthropathy and intervertebral disc space narrowing is also present. There is 6 mm retrolisthesis of L2 on L3, 7 mm retrolisthesis L3 on L4 and 5 mm retrolisthesis L4 on L5 secondary to severe facet disease. L1-L2: Moderate intervertebral disc space narrowing and facet arthropathy without central canal or foraminal narrowing. L2-L3: Severe intervertebral disc space narrowing with broad-based posterior disc bulge and osteophytic spurring is noted in conjunction with moderate facet arthropathy causing mild to moderate central canal, moderate right and mild left foraminal narrowing. L3-L4: Severe intervertebral disc space narrowing with advanced facet arthropathy and circumferential posterior disc osteophyte complex causes severe central canal, severe left and moderate right foraminal narrowing. L4-L5: Mild intervertebral disc space narrowing with moderate to severe facet arthropathy and broad-based posterior disc bulge effaces the ventral thecal sac without significant central canal narrowing. There is however moderate to severe left and moderate right foraminal narrowing. L5-S1: Mild intervertebral disc space narrowing and severe facet arthropathy is present causing moderate right foraminal stenosis. Central canal is generally patent. IMPRESSION: 1. No acute fracture or dislocation of the lumbar spine. 2. Multilevel advanced degenerative changes as described in detail above results in very degrees of Central canal and neuroforaminal stenosis. 3. Calcified granuloma of the left lung base with 2 mm noncalcified nodule of the right lung base, likely benign. The above report was generated using voice recognition software. It may contain grammatical, syntax or spelling errors. Electronically signed by: Jet Erwin M.D. 12/04/2016 9:16 PM Dictated Date/Time: 12/04/2016 9:08 PM HEAD WITHOUT CONTRAST (CT) CLINICAL HISTORY: 56 years-old Male with eval for trauma. Acute head injury. TECHNIQUE: Multiple axial CT images of the head were obtained without contrast. A dose lowering technique was utilized adhering to the principles of ALARA. CT DOSE: 3869.04 mGy.cm COMPARISON: CT head 05/01/2016. FINDINGS: No acute intracranial hemorrhage, midline shift, mass, large territorial ischemia or abnormal extra-axial collection. There is moderate cerebral atrophy with ex vacuo ventriculomegaly, advanced for patient's stated age. Asymmetric prominence of the right lateral ventricle atrium is again seen which is nonspecific and unchanged. The calvarium is intact. The paranasal sinuses, mastoid air cells, and middle ear cavities are clear. IMPRESSION: No acute intracranial abnormality. The above report was generated using voice recognition software. It may contain grammatical, syntax or spelling errors. Electronically signed by: Jet Erwin M.D. 12/04/2016 8:59 PM Dictated Date/Time: 12/04/2016 8:57 PM CHEST ONE VIEW PORTABLE HISTORY: 56 years-old Male CHEST PAIN COMPARISON: 11/28/2016 chest radiograph TECHNIQUE: Portable upright AP view of the chest FINDINGS: Cardiomediastinal and hilar silhouettes are within normal limits. There is no pneumothorax or pleural effusion. Hazy right basilar opacity is again seen suggesting a composite density artifact from pulmonary vasculature. No focal airspace consolidations are identified. The bones appear grossly intact. IMPRESSION: No acute cardiopulmonary process. The above report was generated using voice recognition software. It may contain grammatical, syntax or spelling errors. Electronically signed by: Jet Erwin M.D. 12/04/2016 7:57 PM Dictated Date/Time: 12/04/2016 7:56 PM ABD/PELVIS NO IV OR ORAL CONT HISTORY: 56 years-old Male acute trauma. COMPARISON: CT abdomen and pelvis 11/02/2014 and 09/10/2014 TECHNIQUE: Multiple axial CT images of the abdomen and pelvis were obtained without IV contrast. A dose lowering technique was used consistent with the principals of WAI. FINDINGS: The lung bases are generally clear. Punctate calcified granuloma involves the left lower lobe. There is no pneumoperitoneum. Inferior cardiac chambers appear unremarkable. The liver, gallbladder, pancreas and adrenal glands are within normal limits. There is a 7 mm low attenuating lesion of the mid spleen which is unchanged and statistically benign. The bilateral kidneys and ureters are within normal limits. Urinary bladder and prostate are unremarkable. Abdominal aorta is normal in course and caliber. No bulky adenopathy. There is mild atherosclerosis. Soft tissue attenuating lobulated lesion of the left upper abdomen adjacent to the proximal greater curvature of the stomach is again seen, 3.9 x 2.0 cm. This measured 3.9 x 2[address] of the chest 09/10/2014. There is no bowel obstruction. Moderate volume of formed stool seen throughout the colon. Noninflamed colonic diverticuli are seen. The appendix demonstrates high attenuating internal material without evidence of formation. Prominent subcortical cystic changes are seen involving the bilateral hips. Multilevel changes of the spine are noted. Multiple Schmorl's nodes are also seen throughout the spine. IMPRESSION: 1. No acute intra-abdominal or intrapelvic abnormality identified. No evidence of solid organ injury. 2. Lobulated soft tissue attenuating lesion of the left upper abdomen adjacent to the proximal greater curvature of the stomach is again noted measuring up to 3.9 cm. This is nonspecific, however based on stability in size and appearance dating back to 09/10/2014 suggests benign etiology. The above report was generated using voice recognition software. It may contain grammatical, syntax or spelling errors. Electronically signed by: Jet Erwin M.D. 12/04/2016 9:06 PM Dictated Date/Time: 12/04/2016 8:59 PM Laboratory Results 12/04/16 20:05 Red Blood Count 4.61, Mean Corpuscular Volume 90.7, Mean Corpuscular Hemoglobin 31.0, Mean Corpuscular Hemoglobin Concent 34.2, Mean Platelet Volume 9.2, Neutrophils (%) (Auto) 61.1, Lymphocytes (%) (Auto) 25.7, Monocytes (%) (Auto) 12.3, Eosinophils (%) (Auto) 0.4, Basophils (%) (Auto) 0.1, Neutrophils # (Auto ) 5.12, Lymphocytes # (Auto) 2.15, Monocytes # (Auto) 1.03, Eosinophils # (Auto ) 0.03, Basophils # (Auto) 0.01 12/04/16 20:05 Test 12/04/16 19:05 12/04/16 20:05 12/04/16 20:10 Bedside Glucose 80 mg/dl (70-99) White Blood Count 8.37 K/uL (4.8-10.8) Red Blood Count 4.61 M/uL (4.7-6.1) Hemoglobin 14.3 g/dL (14.0-18.0) Hematocrit 41.8 % (42-52) Mean Corpuscular Volume 90.7 fL (80-100) Mean Corpuscular Hemoglobin 31.0 pg (25-34) Mean Corpuscular Hemoglobin Concent 34.2 g/dl (32-36) Platelet Count 174 K/uL (130-400) Mean Platelet Volume 9.2 fL (7.4-10.4) Neutrophils (%) (Auto) 61.1 % Lymphocytes (%) (Auto) 25.7 % Monocytes (%) (Auto) 12.3 % Eosinophils (%) (Auto) 0.4 % Basophils (%) (Auto) 0.1 % Neutrophils # (Auto) 5.12 K/uL (1.4-6.5) Lymphocytes # (Auto) 2.15 K/uL (1.2-3.4) Monocytes # (Auto) 1.03 K/uL (0.11-0.59) Eosinophils # (Auto) 0.03 K/uL (0-0.5) Basophils # (Auto) 0.01 K/uL (0-0.2) RDW Standard Deviation 47.2 fL (36.4-46.3) RDW Coefficient of Variation 14.2 % (11.5-14.5) Immature Granulocyte % (Auto) 0.4 % Immature Granulocyte # (Auto) 0.03 K/uL (0.00-0.02) Prothrombin Time 10.3 SECONDS (9.0-12.0) Prothromb Time International Ratio 1.0 (0.9-1.1) Activated Partial Thromboplast Time 22.7 SECONDS (21.0-31.0) Partial Thromboplastin Ratio 0.9 Anion Gap 6.0 mmol/L (3-11) Est Creatinine Clear Calc Drug Dose 64.5 ml/min Estimated GFR () 54.2 Estimated GFR (Non- 46.8 BUN/Creatinine Ratio 14.5 (10-20) Calcium Level 8.9 mg/dl (8.5-10.1) Total Bilirubin 0.3 mg/dl (0.2-1) Direct Bilirubin 0.1 mg/dl (0-0.2) Aspartate Amino Transf (AST/SGOT) 23 U/L (15-37) Alanine Aminotransferase (ALT/SGPT) 24 U/L (12-78) Alkaline Phosphatase 69 U/L (45-117) Total Creatine Kinase 245 U/L (39-308) Creatine Kinase MB 8.3 ng/ml (0.5-3.6) Creatine Kinase MB Ratio 3.4 (0-3.0) Troponin I < 0.015 ng/ml (0-0.045) Total Protein 6.5 gm/dl (6.4-8.2) Albumin 3.4 gm/dl (3.4-5.0) Lipase 141 U/L (73-393) Thyroid Stimulating Hormone (TSH) 1.680 uIu/ml (0.300-4.500) Urine Color YELLOW Urine Appearance CLEAR (CLEAR) Urine pH 7.5 (4.5-7.5) Urine Specific [place] 1.012 (1.000-1.030) Urine Protein NEG (NEG) Urine Glucose (UA) NEG (NEG) Urine Ketones NEG (NEG) Urine Occult Blood NEG (NEG) Urine Nitrite NEG (NEG) Urine Bilirubin NEG (NEG) Urine Urobilinogen NEG (NEG) Urine Leukocyte Esterase NEG (NEG) Laboratory studies as stated above per my review. Medications Administered Medications (Trade) Dose Ordered Sig/Daniel Route Start Time Stop Time Status Last Admin Dose Admin Sodium Chloride 1,000 ml @ 999 mls/hr Q1H1M STAT IV 12/04/16 19:13 12/04/16 20:13 DC 12/04/16 20:13 999 MLS/HR ECG Indication: weakness Rate (beats per minute): 79 Rhythm: normal sinus Findings: LAFB, other (RBBB) Comparison ECG Date: compared to July 26 2016, RBBB is present ED Course 1907: Past medical records reviewed. The patient was evaluated in room B6, and a complete history and physical examination were performed. 1912: Ordered NSS 1000 ml @ 150 mls/hr IV, NSS 1000 ml @ 999 mls/hr IV. 1950: The patient talked to the [facility] rec who talked to me that the patient did not want to be evaluated for further treatment or go to rehab. 2152: I reevaluated the patient and he strongly desires to go home and denies any complaints. He refuses admission, and he says that they are working on getting him physical therapy at his house. He said he has not been using his walker at home. We had the patient walk with his walker and he was able to do that. We will send him home with our walker. Medical Decision Differentials include, but are not limited to; hypoglycemia, trauma, infection, electrolyte or metabolic abnormality, rhabdomyolysis. This patient comes in as described above. He has been having weakness and falls today. When EMS found he is laying on his bed however. He does use a walker home but hasn't been using it. His blood sugar was a little bit on the low side. He does has a history of bipolar disorder but denies that he has any suicidal or homicidal ideations. He did get an argument the other day because when they went to give more help at home they said that he was too young to qualify apparently this is not the case and his correctional case manager are helping him. IV access established and blood sugar is mildly low in the 80s however he does not appear hypoglycemic, he was given food while he was here. He nola nothing to suggest infection. He has no significant EKG changes and nothing to suggest acute coronary syndrome or arrhythmia. He has no acute electrode or metabolic abnormalities. I did a CAT scan of his head abdomen back and pelvis and there is no acute findings which would explain his symptoms. He remained stable and I talked to him at length. He adamantly does not want to be admitted or to go to rehabilitation . he did demonstrate to me that he is able walk very well with a walker. We actually had him use a walker here that did not have wheels on it. The one at home does have wheels that seems to cause and saw the problems so was sent home with a Walker. Again he declines admission. He does have outpatient follow-up set up and they are trying to give him extra help in the home I think this is reasonable. I encouraged him return however if he has worsening symptoms, any further falls or problems, any proximal concerns. The patient was happy with plan and discharged to home. Head Trauma GCS Score: 15 Medication Reconcilliation Current Medication List: was personally reviewed by me Blood Pressure Screening Patient's blood pressure: Normal blood pressure Impression Primary Impression: Weakness Additional Impression: Frequent falls Scribe Attestation The scribe's documentation has been prepared under my direction and personally reviewed by me in its entirety. I confirm that the note above accurately reflects all work, treatment, procedures, and medical decision making performed by me. Departure Information Dispostion Home / Self-Care Referrals No Doctor, Assigned (PCP) Patient Instructions My [facility] Additional Instructions REst Use a walker Be careful when getting up and down Follow-up with your doctor aand embedded case manager this week to help arrnage in home help REturn to the ER if: worsening of symptoms, fever, increasing pain, numbness or weakness, any new problems or concerns Problem Qualifiers
--- NOTE | 2016-12-04 19:58 | DIAGNOSTIC IMAGING REPORT ---
CHEST ONE VIEW PORTABLE HISTORY: 56 years-old Male CHEST PAIN COMPARISON: 11/28/2016 chest radiograph TECHNIQUE: Portable upright AP view of the chest FINDINGS: Cardiomediastinal and hilar silhouettes are within normal limits. There is no pneumothorax or pleural effusion. Hazy right basilar opacity is again seen suggesting a composite density artifact from pulmonary vasculature. No focal airspace consolidations are identified. The bones appear grossly intact. IMPRESSION: No acute cardiopulmonary process. The above report was generated using voice recognition software. It may contain grammatical, syntax or spelling errors. Electronically signed by: Jet Erwin M.D. 12/04/2016 7:57 PM Dictated Date/Time: 12/04/2016 7:56 PM
[2016-12-04] MEDS ORDERED: ESCI10TA17 PO (20:02)
[2016-12-04 20:25] LABS: BASO % 0.1 %; BASO ABS # 0.01 K/uL (0-0.2); COMPLETE YES; EOS % 0.4 %; HEMATOCRIT 41.8 % (42-52); IG% 0.4 %; LYMPH % 25.7 %; LYMPH ABS # 2.15 K/uL (1.2-3.4); MEAN CELL VOLUME 90.7 fL (80-100); MEAN CORPUSCULAR HGB CONC 34.2 g/dl (32-36); MEAN PLATELET VOLUME 9.2 fL (7.4-10.4); MONO % 12.3 %; NEUT % 61.1 %; PLATELET COUNT 174 K/uL (130-400); RED BLOOD COUNT 4.61 M/uL (4.7-6.1); WHITE BLOOD COUNT 8.37 K/uL (4.8-10.8)
[2016-12-04 20:33] LABS: ALT/SGPT 24 U/L (12-78); BLOOD UREA NITROGEN 23 mg/dl (7-18); BUN/CREATININE RATIO 14.5 (10-20); CALCIUM 8.9 mg/dl (8.5-10.1); CARBON DIOXIDE 32 mmol/L (21-32); CHLORIDE 96 mmol/L (98-107); GLUCOSE 84 mg/dl (70-99); POTASSIUM 4.2 mmol/L (3.5-5.1); SODIUM 134 mmol/L (136-145)
[2016-12-04 20:44] LABS: ALKALINE PHOSPHATASE 69 U/L (45-117); AST/SGOT 23 U/L (15-37); CKMB/CK RATIO 3.4 (0-3.0)
[2016-12-04 20:47] LABS: PARTIAL THROMBOPLASTIN RATIO 0.9; PROTHROMBIN TIME (PATIENT) 10.3 SECONDS (9.0-12.0)
[2016-12-04 20:48] LABS: URINE APPEARANCE CLEAR (CLEAR); URINE BILIRUBIN NEG (NEG); URINE COLOR YELLOW; URINE NITRITE NEG (NEG); URINE PH 7.5 (4.5-7.5); URINE SPECIFIC GRAVITY 1.012 (1.000-1.030); UROBILINOGEN NEG (NEG)
[2016-12-04 20:51] LABS: MANUAL MICROSCOPIC REQUIRED? NO; REVIEW REQ? NO
--- NOTE | 2016-12-04 21:00 | DIAGNOSTIC IMAGING REPORT ---
HEAD WITHOUT CONTRAST (CT) CLINICAL HISTORY: 56 years-old Male with eval for trauma. Acute head injury. TECHNIQUE: Multiple axial CT images of the head were obtained without contrast. A dose lowering technique was utilized adhering to the principles of ALARA. CT DOSE: 3869.04 mGy.cm COMPARISON: CT head 05/01/2016. FINDINGS: No acute intracranial hemorrhage, midline shift, mass, large territorial ischemia or abnormal extra-axial collection. There is moderate cerebral atrophy with ex vacuo ventriculomegaly, advanced for patient's stated age. Asymmetric prominence of the right lateral ventricle atrium is again seen which is nonspecific and unchanged. The calvarium is intact. The paranasal sinuses, mastoid air cells, and middle ear cavities are clear. IMPRESSION: No acute intracranial abnormality. The above report was generated using voice recognition software. It may contain grammatical, syntax or spelling errors. Electronically signed by: Jet Erwin M.D. 12/04/2016 8:59 PM Dictated Date/Time: 12/04/2016 8:57 PM
--- NOTE | 2016-12-04 21:07 | DIAGNOSTIC IMAGING REPORT ---
ABD/PELVIS NO IV OR ORAL CONT HISTORY: 56 years-old Male acute trauma. COMPARISON: CT abdomen and pelvis 11/02/2014 and 09/10/2014 TECHNIQUE: Multiple axial CT images of the abdomen and pelvis were obtained without IV contrast. A dose lowering technique was used consistent with the principals of WAI. FINDINGS: The lung bases are generally clear. Punctate calcified granuloma involves the left lower lobe. There is no pneumoperitoneum. Inferior cardiac chambers appear unremarkable. The liver, gallbladder, pancreas and adrenal glands are within normal limits. There is a 7 mm low attenuating lesion of the mid spleen which is unchanged and statistically benign. The bilateral kidneys and ureters are within normal limits. Urinary bladder and prostate are unremarkable. Abdominal aorta is normal in course and caliber. No bulky adenopathy. There is mild atherosclerosis. Soft tissue attenuating lobulated lesion of the left upper abdomen adjacent to the proximal greater curvature of the stomach is again seen, 3.9 x 2.0 cm. This measured 3.9 x 2[address] of the chest 09/10/2014. There is no bowel obstruction. Moderate volume of formed stool seen throughout the colon. Noninflamed colonic diverticuli are seen. The appendix demonstrates high attenuating internal material without evidence of formation. Prominent subcortical cystic changes are seen involving the bilateral hips. Multilevel changes of the spine are noted. Multiple Schmorl's nodes are also seen throughout the spine. IMPRESSION: 1. No acute intra-abdominal or intrapelvic abnormality identified. No evidence of solid organ injury. 2. Lobulated soft tissue attenuating lesion of the left upper abdomen adjacent to the proximal greater curvature of the stomach is again noted measuring up to 3.9 cm. This is nonspecific, however based on stability in size and appearance dating back to 09/10/2014 suggests benign etiology. The above report was generated using voice recognition software. It may contain grammatical, syntax or spelling errors. Electronically signed by: Jet Erwin M.D. 12/04/2016 9:06 PM Dictated Date/Time: 12/04/2016 8:59 PM
--- NOTE | 2016-12-04 21:17 | DIAGNOSTIC IMAGING REPORT ---
LUMBAR SPINE WITHOUT HISTORY: 56 years-old Male eval for trauma acute back injury. COMPARISON: CT abdomen and pelvis of same day, CT abdomen and pelvis 11/02/2014 TECHNIQUE: Multiple axial CT images of the lumbar spine were obtained without IV contrast. Coronal and sagittal reformatted images were obtained from the axial data set and cemented for review. A dose lowering technique was used consistent with the principals of ALARA. FINDINGS: Vertebral body heights are well-maintained without evidence of acute compression deformity. There is no acute fracture or dislocation identified. The imaged sacrum also appears intact. There is a 2 mm noncalcified pulmonary nodule the right lung base. There is a calcified granuloma of the left lung base. No acute intra-abdominal or intrapelvic abnormality is seen. There is mild levoscoliosis. Multiple Schmorl's nodes are again seen without significant change from comparison study. Severe multilevel facet arthropathy and intervertebral disc space narrowing is also present. There is 6 mm retrolisthesis of L2 on L3, 7 mm retrolisthesis L3 on L4 and 5 mm retrolisthesis L4 on L5 secondary to severe facet disease. L1-L2: Moderate intervertebral disc space narrowing and facet arthropathy without central canal or foraminal narrowing. L2-L3: Severe intervertebral disc space narrowing with broad-based posterior disc bulge and osteophytic spurring is noted in conjunction with moderate facet arthropathy causing mild to moderate central canal, moderate right and mild left foraminal narrowing. L3-L4: Severe intervertebral disc space narrowing with advanced facet arthropathy and circumferential posterior disc osteophyte complex causes severe central canal, severe left and moderate right foraminal narrowing. L4-L5: Mild intervertebral disc space narrowing with moderate to severe facet arthropathy and broad-based posterior disc bulge effaces the ventral thecal sac without significant central canal narrowing. There is however moderate to severe left and moderate right foraminal narrowing. L5-S1: Mild intervertebral disc space narrowing and severe facet arthropathy is present causing moderate right foraminal stenosis. Central canal is generally patent. IMPRESSION: 1. No acute fracture or dislocation of the lumbar spine. 2. Multilevel advanced degenerative changes as described in detail above results in very degrees of Central canal and neuroforaminal stenosis. 3. Calcified granuloma of the left lung base with 2 mm noncalcified nodule of the right lung base, likely benign. The above report was generated using voice recognition software. It may contain grammatical, syntax or spelling errors. Electronically signed by: Jet Erwin M.D. 12/04/2016 9:16 PM Dictated Date/Time: 12/04/2016 9:08 PM
[2016-12-04 22:25] VITALS: BP 122/78; PULSE 78; O2SAT 98
== END 2016-12-04 22:27 | disposition home or self-care (01) ==
LOC: C.EDB 18:38
DX: R53.1 Weakness (principal); R29.6 Repeated falls; F31.9 Bipolar disorder, unspecified; J45.909 Unspecified asthma, uncomplicated; I10 Essential (primary) hypertension; E11.9 Type 2 diabetes mellitus without complications; K21.9 Gastro-esophageal reflux disease without esophagitis; E03.9 Hypothyroidism, unspecified; E87.1 Hypo-osmolality and hyponatremia; Z87.01 Personal history of pneumonia (recurrent); I89.0 Lymphedema, not elsewhere classified; F20.9 Schizophrenia, unspecified; Z83.3 Family history of diabetes mellitus; Z83.79 Family history of other diseases of the digestive system; Z82.49 Family history of ischemic heart disease and other diseases of the circulatory system; Z79.82 Long term (current) use of aspirin; Z79.52 Long term (current) use of systemic steroids; Z79.899 Other long term (current) drug therapy

== ENCOUNTER 2017-04-08 11:19 | Emergency (ER) | payer OTHER ==
[~2017-04-08] VITALS: Ht 180.3 cm; Wt 112.8 kg
[~2017-04-08 11:19] MED LIST changes: +ESCI10TA17 PO
[2017-04-08 11:33] VITALS: BP 131/85; PULSE 89; TEMP 36.6; O2SAT 93; Ht 180.3 cm; Wt 112.8 kg
--- NOTE | 2017-04-08 12:34 | DIAGNOSTIC IMAGING REPORT ---
L KNEE 1 OR 2 VIEWS ROUTINE CLINICAL HISTORY: Left knee pain status post trauma COMPARISON: 09/03/2015 DISCUSSION: There are postsurgical changes are prior anterior cruciate ligament repair. There are advanced osteoarthritic changes. Multiple calcified loose bodies are visualized. There is lateral translation of the tibia with respect to the femur. This remains similar. There is a small joint effusion. No acute fractures are visualized IMPRESSION: 1. No acute fractures identified 2. Postsurgical changes are prior anterior cruciate ligament repair 3. Advanced arthritic changes. Persistent lateral translation of the tibia with respect to the femur. Multiple loose bodies. 4. Small joint effusion Electronically signed by: Maverick Tavarez M.D. 04/08/2017 12:33 PM Dictated Date/Time: 04/08/2017 12:31 PM
--- NOTE | 2017-04-08 12:54 | EMERGENCY ROOM VISIT NOTE ---
History Report prepared by Beny: Arlene Reis Under the Supervision of: Dr. Gomez Reich D.O. First contact with patient: 11:38 Chief Complaint: FALL Stated Complaint: MULTIPLE FALL/PEDAL EDEMA History of Present Illness The patient is a 57 year old male who presents to the Emergency Room with complaints of multiple sudden falls that occurred last night and this morning. The patient states that he typically ambulates with a walker. He states that he has had trouble getting around recently. The patient denies any injury. He reports a history of arthritis in his left leg. The patient reports chronic bilateral lower extremity swelling. Source of History: patient Onset: last night and this morning Position: other (global) Quality: other (fall) Timing: other (sudden) Note: Associated Symptoms: bilateral lower extremity swelling. Review of Systems See HPI for pertinent positives & negatives. A total of 10 systems reviewed and were otherwise negative. Past Medical & Surgical Medical Problems: (1) Altered mental status (2) Asthma (3) Benign hypertension (4) Bilateral lower extremity edema (5) Bipolar disorder (6) Community acquired pneumonia (7) Diabetes (8) Gastroesophageal reflux disease (9) Hypoglycemia (10) Hyponatremia (11) Hypothyroidism (12) Hypoxia (13) Insomnia (14) Knee pain (15) Lymphedema of both lower extremities (16) Pneumonia (17) Pneumonia (18) Rib pain on left side (19) Schizophrenia (20) Sepsis (21) Sepsis (22) SOB (shortness of breath) (23) Soft tissue disorder (24) Unable to void (25) Weakness Family History Diabetes mellitus Gallbladder disease Hypertension Social History Smoking Status: Never Smoker Alcohol Use: none Drug Use: none Marital Status: single Housing Status: lives alone Occupation Status: unemployed Current/Historical Medications Scheduled Albuterol Hfa (Ventolin Hfa), 2 PUFFS INH QID Aspirin (Aspirin EC Low Dose), 81 MG PO DAILY Budesonide/Formoterol Fumarate (Symbicort 160/4.5 Inhaler ), 2 PUFFS INH BID Bupropion Hcl (Bupropion Hcl Xl), 150 MG PO QAM Buspirone Hcl (Buspirone Hcl), 30 MG PO BID Cephalexin Monohydrate (Keflex), 500 MG PO TID Clonazepam (Klonopin), 2 TAB PO HS Divalproex Sodium (Depakote Er), 250 MG PO HS Divalproex Sodium (Depakote Er), 2,000 MG PO UD Divalproex Sodium (Depakote Er), 1,500 MG PO HS Divalproex Sodium (Depakote Er), 3 TAB PO 1700 Econazole Nitrate (Econazole Nitrate), 0 TOP DAILY Escitalopram (Lexapro), 10 MG PO DAILY Fluoxetine Hcl (Pmdd) (Fluoxetine), 1 CAP PO HS Furosemide (Lasix), 40 MG PO DAILY Levothyroxine Sodium (Levothyroxine Sodium), 175 MCG PO DAILY Lisinopril (Zestril), 10 MG PO DAILY Loratadine (Claritin), 10 MG PO DAILY Loxapine Succinate (Loxapine), 150 MG PO DAILY Magnesium Oxide (Mag-Ox), 400 MG PO DAILY Metformin HCl (Metformin HCl), 500 MG PO BIDM Metformin HCl (Metformin HCl), 850 MG PO BIDM Montelukast Sodium (Montelukast Sodium), 10 MG PO HS Omeprazole (Prilosec), 20 MG PO QAM Potassium Ext Rel (Klor-Con), 40 MEQ PO DAILY Pravastatin (Pravachol ), 20 MG PO HS Prednisone (Prednisone), 2 TAB PO DAILY Ranitidine (Zantac), 150 MG PO BID Sennosides-Docusate Sodium (Senna Plus), 1-2 TABS PO QAM Sildenafil Citrate (Viagra), 50 MG PO PRN Sulfamethoxazole-Trimethoprim (Bactrim 400MG/80MG), 1 TAB PO Q12H Ziprasidone Hcl (Geodon), 40 MG PO BID Ziprasidone Hcl (Geodon), 80 MG PO BID Scheduled PRN Clonazepam (Klonopin), 1 MG PO TID PRN for Anxiety Fluticasone Propionate (Nasal) (Flonase Allergy Relief ), 1 SPRAY [place] DAILY PRN for Nasal Congestion Naproxen (Naprosyn), 500 MG PO BID PRN for Pain Polyethylene Glycol 3350 (Miralax), 17 GM PO DAILY PRN for Constipation Tramadol (Ultram), 50 MG PO Q4-6HRS PRN for Pain Allergies Coded Allergies: No Known Allergies (Verified , 12/04/16) Physical Exam Vital Signs Date Time Temp Pulse Resp B/P (MAP) Pulse Ox O2 Delivery O2 Flow Rate FiO2 04/08/17 11:33 36.6 89 18 131/85 93 Room Air Physical Exam CONSTITUTIONAL/VITAL SIGNS: Reviewed / noted above. GENERAL: Non-toxic in appearance. INTEGUMENTARY: Warm, dry, and [place]. HEAD: Normocephalic. EYES: without scleral icterus or trauma. ENT/OROPHARYNX: clear and moist. LYMPHADENOPATHY/NECK: Is supple without lymphadenopathy or meningismus. RESPIRATORY: Lungs clear and equal. CARDIOVASCULAR: Regular rate and rhythm. GI/ABDOMEN: Soft and nontender. No organomegaly or pulsatile mass. No rebound or guarding. Normal bowel sounds. EXTREMITIES: Warm and well perfused. Abrasion to left knee. BACK: No CVA tenderness. NEUROLOGICAL: Intact without focal deficits. PSYCHIATRIC: normal affect. MUSCULOSKELETAL: Normally developed with good muscle tone. Medical Decision & Procedures ER Provider Diagnostic Interpretation: X ray results and stated below per my interpretation and radiology interpretation. L KNEE 1 OR 2 VIEWS ROUTINE CLINICAL HISTORY: Left knee pain status post trauma COMPARISON: 09/03/2015 DISCUSSION: There are postsurgical changes are prior anterior cruciate ligament repair. There are advanced osteoarthritic changes. Multiple calcified loose bodies are visualized. There is lateral translation of the tibia with respect to the femur. This remains similar. There is a small joint effusion. No acute fractures are visualized IMPRESSION: 1. No acute fractures identified 2. Postsurgical changes are prior anterior cruciate ligament repair 3. Advanced arthritic changes. Persistent lateral translation of the tibia with respect to the femur. Multiple loose bodies. 4. Small joint effusion Electronically signed by: Maverick Tavarez M.D. 04/08/2017 12:33 PM Dictated Date/Time: 04/08/2017 12:31 PM ED Course 1139: Previous medical records were reviewed. The patient was evaluated in room B9. A complete history and physical examination was performed. 1255: I reevaluated the patient and he is resting comfortably. I discussed the test results with him and I discussed the treatment plan. He verbalized complete understanding and agreement. He is ready to go home. Medical Decision Differentials include: Close head injury, intracranial bleed, facial trauma, cervical spine trauma, chest and thoracic trauma, abdominal and intra-abdominal trauma, spine neurologic trauma, and extremity trauma. This is a 57-year-old male who presents to the ED after a fall. He came in because he thought he might have hurt his left knee. The patient has a frequent history of falls and normally gets around using a walker. He fell in his house. He does have an abrasion on his left anterior knee. He denies any injuries other than this and denies hitting his head or loss of consciousness. The patient's x-ray did not show acute fracture or dislocation. He was told the results. He feels safe going home. He was discharged. He did not want pain medication. Medication Reconcilliation Current Medication List: was personally reviewed by me Blood Pressure Screening Patient's blood pressure: Elevated blood pressure Blood pressure disposition: Elevated BP felt to be situational, Did not require urgent referral Impression Primary Impression: Fall Additional Impression: Abrasion of knee, right Scribe Attestation The scribe's documentation has been prepared under my direction and personally reviewed by me in its entirety. I confirm that the note above accurately reflects all work, treatment, procedures, and medical decision making performed by me. Departure Information Dispostion Home / Self-Care Referrals Yohannes Carrillo M.D. (PCP) Forms HOME CARE DOCUMENTATION FORM, IMPORTANT VISIT INFORMATION Patient Instructions My [facility] Additional Instructions No fractures were seen on your knee X-ray today. Return for any concerns. Problem Qualifiers
== END 2017-04-08 13:05 | disposition home or self-care (01) ==
LOC: EDBD 11:19 → C.EDB 11:21
DX: S80.211A Abrasion, right knee, initial encounter (principal); W19.XXXA Unspecified fall, initial encounter; J45.909 Unspecified asthma, uncomplicated; I10 Essential (primary) hypertension; E11.9 Type 2 diabetes mellitus without complications; K21.9 Gastro-esophageal reflux disease without esophagitis; E03.9 Hypothyroidism, unspecified; F20.9 Schizophrenia, unspecified; Z87.01 Personal history of pneumonia (recurrent); Z83.3 Family history of diabetes mellitus; Z82.49 Family history of ischemic heart disease and other diseases of the circulatory system; Z79.82 Long term (current) use of aspirin; Z79.84 Long term (current) use of oral hypoglycemic drugs; Z79.899 Other long term (current) drug therapy

== ENCOUNTER 2017-05-11 14:17 | Inpatient (IN) | payer OTHER ==
[~2017-05-11] VITALS: Ht 180.3 cm; Wt 111.6 kg
[2017-05-11] MEDS ORDERED: SODIUM CHLORIDE 0.9% 1000ML 1,000 ML IV STA ×2 (14:31)
[2017-05-11] MEDS ORDERED: IBUPROFEN 600 MG TAB PO STA (14:31)
[2017-05-11] MEDS ORDERED: ACETAMINOPHEN 500 MG TAB PO STA (14:31)
--- NOTE | 2017-05-11 14:35 | EMERGENCY ROOM VISIT NOTE ---
History Report prepared by Beny: Sera Epstein Under the Supervision of: Dr. Oliver Aly M.D. First contact with patient: 14:20 Chief Complaint: ILLNESS Stated Complaint: HYPOGLYCEMIA History of Present Illness The patient is a 57 year old white male with a past medical history of lymphedema and schizophrenia who presents to the ED with a cc of constant hypoglycemia beginning today. The patient states that he is not on any medication for his diabetes as his sugar is normally low. He reports that his blood sugar has been in the 50s and 60s today. Positive fever. Negative urinary symptoms, bowel changes, nausea, vomiting, diarrhea, changes in diet, rash, sores, penis pain, scrotal pain, abdominal pain, and cough. The patient states that his last bowel movement was last night. Source of History: patient Onset: today Position: other (global) Symptom Intensity: 50-60 Quality: other (hypoglycemia) Timing: constant Associated Symptoms: + fevers, No cough, No nausea, No vomiting, No abdominal pain, No diarrhea, No urinary symptoms Note: Negative bowel changes, changes in diet, rash, sores, penis pain, scrotal pain. Review of Systems See HPI for pertinent positives and negatives. A total of ten systems were reviewed and were otherwise negative. Past Medical & Surgical Medical Problems: (1) Altered mental status (2) Asthma (3) Benign hypertension (4) Bilateral lower extremity edema (5) Bipolar disorder (6) Community acquired pneumonia (7) Diabetes (8) Gastroesophageal reflux disease (9) Hypoglycemia (10) Hyponatremia (11) Hypothyroidism (12) Hypoxia (13) Insomnia (14) Knee pain (15) Lymphedema of both lower extremities (16) PNA (pneumonia) (17) Pneumonia (18) Pneumonia (19) Rib pain on left side (20) Schizophrenia (21) Sepsis (22) Sepsis (23) SOB (shortness of breath) (24) Soft tissue disorder (25) Unable to void (26) Weakness Family History Diabetes mellitus Gallbladder disease Hypertension Social History Smoking Status: Never Smoker Alcohol Use: none Drug Use: none Marital Status: single Housing Status: lives alone Occupation Status: unemployed Current/Historical Medications Scheduled Aspirin (Aspirin Ec), 81 MG PO DAILY Benztropine Mesylate (Benztropine Mesylate), 2 MG PO HS Bupropion (Wellbutrin Sr), 150 MG PO BID Buspirone Hcl (Buspirone Hcl), 30 MG PO BID Divalproex Sodium (Depakote Er), 2,000 MG PO BID Furosemide (Lasix), 40 MG PO DAILY Levothyroxine Sodium (Levothyroxine Sodium), 175 MCG PO DAILY Lisinopril (Lisinopril), 10 MG PO DAILY Loratadine (Claritin), 10 MG PO DAILY Loxapine Succinate (Loxapine), 100 MG PO DAILY Montelukast Sodium (Singulair), 10 MG PO HS Omeprazole (Prilosec), 20 MG PO DAILY Polyethylene Glycol 3350 (Miralax), 17 GM PO BID Potassium Ext Rel (Klor-Con), 40 MEQ PO DAILY Pravastatin Sodium (Pravachol), 20 MG PO HS Ranitidine (Zantac), 150 MG PO BID Sennosides-Docusate Sodium (Senna Plus), 1 TAB PO DAILY Ziprasidone Hcl (Geodon), 80 MG PO BID Scheduled PRN Clonazepam (Klonopin), 1 MG PO TID PRN for Anxiety Naproxen (Naprosyn), 500 MG PO UD PRN for Pain Tramadol HCl (Tramadol HCl), 50-100 MG PO Q4 PRN for Pain Allergies Coded Allergies: No Known Allergies (Verified , 05/11/17) Physical Exam Vital Signs Date Time Temp Pulse Resp B/P (MAP) Pulse Ox O2 Delivery O2 Flow Rate FiO2 05/11/17 17:13 101 22 125/96 93 Room Air 05/11/17 16:01 36.4 113 20 125/96 96 Room Air 05/11/17 15:52 36.9 05/11/17 15:17 115 22 124/88 94 Room Air 05/11/17 14:25 95 Room Air 05/11/17 14:24 39.3 124 20 124/88 97 Room Air 05/11/17 14:23 122 Physical Exam GENERAL: Awake, alert, non toxic-appearing, NAD HENT: Normocephalic, atraumatic. EYES: Normal conjunctiva. Sclera non-icteric. NECK: Supple. No nuchal rigidity. FROM. RESPIRATORY: Decreased breath sounds in the right lower lobe. CARDIAC: Tachycardic and regular, no MRG ABDOMEN: Soft, NTND, BS+ MSK: No chest wall TTP, profound LE lymphedema, non pitting. Trace redness but without warmth. NEURO: GCS 15, CN 2-12 intact, moves all 4s on command SKIN: No rash or jaundice noted. : Circumcised, normal, no testicular pain or swelling. Medical Decision & Procedures ER Provider Diagnostic Interpretation: Radiology results as stated below per my review and radiologist interpretation: CHEST ONE VIEW PORTABLE FINDINGS: Rather diffuse parenchymal infiltrate left base. Lungs otherwise appear clear. Heart is top limits normal in terms of size. Diaphragms smooth. IMPRESSION: Diffuse parenchymal infiltrate left base The above report was generated using voice recognition software. It may contain grammatical, syntax or spelling errors. Electronically signed by: Jean Marie Prather M.D. 05/11/2017 3:01 PM Dictated Date/Time: 05/11/2017 3:01 PM Laboratory Results 05/11/17 14:34 Red Blood Count 4.76, Mean Corpuscular Volume 91.0, Mean Corpuscular Hemoglobin 31.3, Mean Corpuscular Hemoglobin Concent 34.4, Mean Platelet Volume 9.1, Neutrophils (%) (Auto) 87.8, Lymphocytes (%) (Auto) 6.9, Monocytes (%) (Auto) 4.6, Eosinophils (%) (Auto) 0.3, Basophils (%) (Auto) 0.0, Neutrophils # (Auto) 8.96, Lymphocytes # (Auto) 0.70, Monocytes # (Auto) 0.47, Eosinophils # (Auto) 0.03, Basophils # (Auto) 0.00 05/11/17 14:34 Test 05/11/17 14:22 05/11/17 14:34 05/11/17 14:40 05/11/17 14:50 Bedside Glucose 164 mg/dl (70-99) White Blood Count 10.20 K/uL (4.8-10.8) Red Blood Count 4.76 M/uL (4.7-6.1) Hemoglobin 14.9 g/dL (14.0-18.0) Hematocrit 43.3 % (42-52) Mean Corpuscular Volume 91.0 fL (80-100) Mean Corpuscular Hemoglobin 31.3 pg (25-34) Mean Corpuscular Hemoglobin Concent 34.4 g/dl (32-36) Platelet Count 181 K/uL (130-400) Mean Platelet Volume 9.1 fL (7.4-10.4) Neutrophils (%) (Auto) 87.8 % Lymphocytes (%) (Auto) 6.9 % Monocytes (%) (Auto) 4.6 % Eosinophils (%) (Auto) 0.3 % Basophils (%) (Auto) 0.0 % Neutrophils # (Auto) 8.96 K/uL (1.4-6.5) Lymphocytes # (Auto) 0.70 K/uL (1.2-3.4) Monocytes # (Auto) 0.47 K/uL (0.11-0.59) Eosinophils # (Auto) 0.03 K/uL (0-0.5) Basophils # (Auto) 0.00 K/uL (0-0.2) RDW Standard Deviation 46.4 fL (36.4-46.3) RDW Coefficient of Variation 13.8 % (11.5-14.5) Immature Granulocyte % (Auto) 0.4 % Immature Granulocyte # (Auto) 0.04 K/uL (0.00-0.02) Red Blood Cell Morphology Unremarkable Prothrombin Time 10.4 SECONDS (9.0-12.0) Prothromb Time International Ratio 1.0 (0.9-1.1) Activated Partial Thromboplast Time 24.8 SECONDS (21.0-31.0) Partial Thromboplastin Ratio 1.0 Anion Gap 7.0 mmol/L (3-11) Est Creatinine Clear Calc Drug Dose 85.2 ml/min Estimated GFR () 76.3 Estimated GFR (Non- 65.8 BUN/Creatinine Ratio 18.1 (10-20) Calcium Level 8.7 mg/dl (8.5-10.1) Total Bilirubin 0.4 mg/dl (0.2-1) Direct Bilirubin 0.1 mg/dl (0-0.2) Aspartate Amino Transf (AST/SGOT) 20 U/L (15-37) Alanine Aminotransferase (ALT/SGPT) 23 U/L (12-78) Alkaline Phosphatase 82 U/L (45-117) Troponin I < 0.015 ng/ml (0-0.045) Total Protein 6.4 gm/dl (6.4-8.2) Albumin 3.3 gm/dl (3.4-5.0) Lipase 128 U/L (73-393) Influenza Type A Antigen Neg for Influ A (NEG) Influenza Type B Antigen Neg for Influ B (NEG) Bedside Lactic Acid Venous 3.96 mmol/L (0.90-1.70) Test 05/11/17 15:00 05/11/17 15:10 Venous Blood pH 7.45 (7.36-7.41) Venous Blood Partial Pressure CO2 33 mmHg (38.0-50.0) Venous Blood Partial Pressure O2 56 mmHg Venous Blood HCO3 23 mmol/L Venous Blood Oxygen Saturation 88.2 % Venous Blood Base Excess -0.6 mEq/L Urine Color YELLOW Urine Appearance CLEAR (CLEAR) Urine pH 7.5 (4.5-7.5) Urine Specific [place] 1.012 (1.000-1.030) Urine Protein NEG (NEG) Urine Glucose (UA) NEG (NEG) Urine Ketones NEG (NEG) Urine Occult Blood NEG (NEG) Urine Nitrite NEG (NEG) Urine Bilirubin NEG (NEG) Urine Urobilinogen NEG (NEG) Urine Leukocyte Esterase NEG (NEG) Laboratory results reviewed by me Medications Administered Medications (Trade) Dose Ordered Sig/Daniel Route Start Time Stop Time Status Last Admin Dose Admin Acetaminophen (Tylenol Tab) 1,000 mg NOW STAT PO 05/11/17 14:31 05/11/17 14:35 DC 05/11/17 14:53 1,000 MG Ibuprofen (Motrin Tab) 600 mg NOW STAT PO 05/11/17 14:31 05/11/17 14:35 DC 05/11/17 14:53 600 MG Sodium Chloride 1,000 ml @ 999 mls/hr Q1H1M STAT IV 05/11/17 14:31 05/11/17 15:31 DC 05/11/17 14:31 999 MLS/HR Sodium Chloride 1,000 ml @ 999 mls/hr Q1H1M STAT IV 05/11/17 14:31 05/11/17 15:31 DC 05/11/17 14:31 999 MLS/HR Vancomycin HCl 2000 mg/Sodium Chloride 290 ml @ 125 mls/hr NOW STAT IV 05/11/17 14:53 05/11/17 17:12 DC 05/11/17 15:21 125 MLS/HR Piperacillin Sod/ Tazobactam Sod (Zosyn Iv) 4.5 gm NOW STAT IV 1/13/18 14:53 05/11/17 14:55 DC 05/11/17 15:21 4.5 GM ECG Indication: other Rate (beats per minute): 118 Rhythm: sinus tachycardia Findings: RBBB, ST depression (single depression in VL), left axis deviation, other (Wide QRS) ED Course 1420: The patient was evaluated in room C3. A complete history and physical exam was performed. 1620: Discussed the patient's case with Dr. Haddad of [facility]. The patient will be evaluated for further treatment and disposition. 1655: Upon reexamination, the patient was doing well. I discussed the test results and treatment plan with her. The patient will be evaluated for further management. Medical Decision The patient is a 57 year old white male with a past medical history of lymphedema and schizophrenia who presents to the ED with a cc of constant hypoglycemia beginning today. Differential diagnosis: Etiologies such as viral syndrome, otitis, pharyngitis, pneumonia, influenza, meningitis, urinary tract infection, sepsis, bacteremia, as well as others were entertained. Patient was seen and evaluated the bedside. Patient presented with a chief complaint of hypoglycemia. However on presentation the patient did have some tachycardia and fever. Patient denied any infectious symptoms. Patient did have some decreased breath sounds in the right side during exam. Blood work, EKG , trop, CXR, UA, blood/urine clx's ordered. Given the patient's initial lactic acidosis with tachycardia and fever the patient was covered with broad-spectrum antibiotics. Subsequently the chest x-ray was returned which did show a source of infection. On chest x-ray the patient did have a concern for a focal consolidation of the left lower lobe. Patient's initial lactate was approximately 4. The patient was empirically ordered 2 L of IV crystalloid. Patient not have an elevated white count. Patient does show a mild respiratory alkalosis which is likely compensatory the patient's acidosis. I did speak to the hospitalist who agreed to admit the patient. Medication Reconcilliation Current Medication List: was personally reviewed by me Blood Pressure Screening Patient's blood pressure: Normal blood pressure Blood pressure disposition: Did not require urgent referral Consults Time Called: 1615 Consulting Physician: Dr. Haddad - [facility] Returned Call: 1620 Discussed the patient's case with Dr. Haddad of [facility]. The patient will be evaluated for further treatment and disposition. Impression Primary Impression: Sepsis Additional Impressions: Pneumonia Acidosis Dehydration Critical Care I have personally spent greater than 35 minutes of critical care time in the direct management of this patient. This includes bedside care, interpretation of diagnostic studies, and testing, discussion with consultants, patient, and family members, and other required patient management activities. This 35 minutes is in excess of all separately billable procedures. Scribe Attestation The scribe's documentation has been prepared under my direction and personally reviewed by me in its entirety. I confirm that the note above accurately reflects all work, treatment, procedures, and medical decision making performed by me. Departure Information Dispostion Being Evaluated By Hospitalist Referrals ProYohannes M.D. (PCP) Patient Instructions My [facility] Sepsis Post Crystalloid Evaluation Date: May 11, 2017 Time: 16:45 Capillary Refill Exam Normal (less than 2 seconds) Cardiopulmonary Evaluation Lung Exam: no respiratory distress Heart Exam: + tachycardia Central Venous Evaluation Pulse Ox %: 95 Passive Leg Raise Negative (normal) Peripheral Pulse Evaluation Normal Skin Exam Turgor (normal) Vitals Last Vital Signs Documentation Date Time Temp Pulse Resp B/P (MAP) Pulse Ox O2 Delivery O2 Flow Rate FiO2 05/11/17 17:13 101 22 125/96 93 Room Air 05/11/17 16:01 36.4 Heart rate seen at the bedside was 105. Presence Of SIRS Problem Qualifiers Primary Impression: Sepsis Sepsis type: sepsis due to unspecified organism Qualified Codes: A41.9 - Sepsis, unspecified organism Additional Impressions: Pneumonia Pneumonia type: due to unspecified organism Laterality: left Lung location : lower lobe of lung Qualified Codes: J18.1 - Lobar pneumonia, unspecified organism
[2017-05-11] MEDS ORDERED: PIPERACILLIN/TAZOBACTAM 4.5 GM/100ML D5W IV STA (14:53)
[2017-05-11] MEDS ORDERED: VANCOMYCIN INJ 2,000 MG in SODIUM CHLORIDE 0.9% 250ML 250 ML IV STA (14:53)
[2017-05-11 14:55] LABS: HEMATOCRIT 43.3 % (42-52); HEMOGLOBIN 14.9 g/dL (14.0-18.0); MEAN CORPUSCULAR HEMOGLOBIN 31.3 pg (25-34); MEAN CORPUSCULAR HGB CONC 34.4 g/dl (32-36); MEAN PLATELET VOLUME 9.1 fL (7.4-10.4); PLATELET COUNT 181 K/uL (130-400); RED CELL DISTRIBUTION WIDTH CV 13.8 % (11.5-14.5); RED CELL DISTRIBUTION WIDTH SD 46.4 fL (36.4-46.3)
--- NOTE | 2017-05-11 15:03 | DIAGNOSTIC IMAGING REPORT ---
CHEST ONE VIEW PORTABLE CLINICAL HISTORY: Evaluate Fever/Sepsis fever COMPARISON STUDY: 12/04/2016 FINDINGS: Rather diffuse parenchymal infiltrate left base. Lungs otherwise appear clear. Heart is top limits normal in terms of size. Diaphragms smooth. IMPRESSION: Diffuse parenchymal infiltrate left base The above report was generated using voice recognition software. It may contain grammatical, syntax or spelling errors. Electronically signed by: Jean Marie Prather M.D. 05/11/2017 3:01 PM Dictated Date/Time: 05/11/2017 3:01 PM
[2017-05-11 15:07] LABS: PTT PATIENT 24.8 SECONDS (21.0-31.0)
[2017-05-11 15:12] LABS: ALBUMIN 3.3 gm/dl (3.4-5.0); ALT/SGPT 23 U/L (12-78); AST/SGOT 20 U/L (15-37); BLOOD UREA NITROGEN 22 mg/dl (7-18); CALCIUM 8.7 mg/dl (8.5-10.1); CARBON DIOXIDE 26 mmol/L (21-32); GLUCOSE 109 mg/dl (70-99); LIPASE 128 U/L (73-393); POTASSIUM 4.5 mmol/L (3.5-5.1); SODIUM 130 mmol/L (136-145)
[2017-05-11 15:17] LABS: ALKALINE PHOSPHATASE 82 U/L (45-117); TOTAL PROTEIN 6.4 gm/dl (6.4-8.2)
[2017-05-11 15:33] LABS: INFLUENZA B ANTIGEN Neg for Influ B (NEG)
[2017-05-11 15:34] LABS: EOS % 0.3 %; EOS ABS # 0.03 K/uL (0-0.5); IG# 0.04 K/uL (0.00-0.02); LYMPH % 6.9 %; MONO % 4.6 %; MONO ABS # 0.47 K/uL (0.11-0.59); NEUT % 87.8 %; NEUT ABS # 8.96 K/uL (1.4-6.5)
[2017-05-11] MEDS ORDERED: PRAV20TA2 PO (16:09)
[2017-05-11] MEDS ORDERED: BUSP30TA2 PO (16:09)
[2017-05-11] MEDS ORDERED: BUPR-79 PO (16:09)
[2017-05-11] MEDS ORDERED: DIVA500T3 PO (16:09)
[2017-05-11] MEDS ORDERED: POLY335019 PO (16:09)
[2017-05-11] MEDS ORDERED: [UNRECOGNIZED DRUG - CODE] PO (16:09)
[2017-05-11] MEDS ORDERED: LISI-461 PO (16:09)
[2017-05-11] MEDS ORDERED: SENN1TAB65 PO (16:09)
[2017-05-11] MEDS ORDERED: NAPR-1169 PO (16:09)
[2017-05-11] MEDS ORDERED: GDN/80 PO (16:09)
[2017-05-11] MEDS ORDERED: BENZ-88 PO (16:09)
[2017-05-11] MEDS ORDERED: MONT1TAB3 PO (16:09)
[2017-05-11] MEDS ORDERED: POTA20TA16 PO (16:09)
[2017-05-11] MEDS ORDERED: PRLSR20 PO (16:09)
[2017-05-11] MEDS ORDERED: CLR10 PO (16:09)
[2017-05-11] MEDS ORDERED: ZNTT/150 PO (16:09)
[2017-05-11] MEDS ORDERED: LEVO175T3 PO (16:09)
[2017-05-11] MEDS ORDERED: CLON1TAB3 PO (16:09)
[2017-05-11] MEDS ORDERED: ASPI81TA28 PO (16:09)
[2017-05-11] MEDS ORDERED: ULT50 PO (16:09)
[2017-05-11] MEDS ORDERED: FURO40TA3 PO (16:09)
[2017-05-11] MEDS ORDERED: NAPROXEN 250 MG TAB PO PRN (17:00)
[2017-05-11] MEDS ORDERED: PIPERACILL/TAZOBAC IV 4.5 GM in DEXTROSE 5% 100ML 100 ML IV SCH (17:00)
[2017-05-11] MEDS ORDERED: CLONAZEPAM 1 MG TAB PO PRN (17:00)
[2017-05-11] MEDS ORDERED: ONDANSETRON INJ 2 MG/ML 2 ML VIAL IV PRN (17:00)
[2017-05-11] MEDS ORDERED: TRAMADOL HCL 50 MG TAB PO PRN (17:00)
[2017-05-11] MEDS ORDERED: MAGNESIUM HYDROXIDE SUSP 30 ML UDC PO PRN (17:00)
[2017-05-11] MEDS ORDERED: ACETAMINOPHEN 325 MG TAB PO PRN (17:00)
--- NOTE | 2017-05-11 17:22 | History and Physical ---
History & Physical Date & Time of Service: May 11, 2017 at 17:02 Chief Complaint: Hypoglycemia Primary Care Physician: Yohannes Carrillo M.D. History of Present Illness Source: patient 57 y/o M who came to the ED over concerns that he was hypoglycemic today. He reported low BS in the 50s-60s upon waking today. He states he is diabetic but has been off of medications for many years because if he takes them, he becomes hypoglycemic. He also cannot follow a DM diet for this reason. Pt admits to mild nausea but no emesis. He also felt chilled and shaky this AM. Pt denies fever, SOB, chest pain, abd pain, n/v/c/d. Pt states he has lymphedema but when he goes to a specific lymphedema clinic, it fully resolves. He has not been seen by them for several months, although I am not certain why. He states that his LE swelling is his usual without lymphedema tx. He states he is supposed to have a R knee replacement with Dr. Alejandra in June, however his swelling needs managed via lymphedema clinic prior to this happening. Past Medical/Surgical History Medical Problems: (1) Asthma Status: Chronic (2) Benign hypertension Status: Chronic (3) Bilateral lower extremity edema Status: Resolved (4) Bipolar disorder Status: Chronic (5) Diabetes Status: Chronic (6) Gastroesophageal reflux disease Status: Chronic (7) Hypoglycemia Status: Resolved (8) Hyponatremia Status: Resolved (9) Hypothyroidism Status: Chronic (10) Hypoxia Status: Resolved (11) Insomnia Status: Resolved (12) Knee pain Status: Resolved (13) Pneumonia Status: Resolved (14) Pneumonia Status: Resolved (15) Rib pain on left side Status: Resolved (16) Schizophrenia Status: Chronic (17) Sepsis Status: Resolved (18) Sepsis Status: Resolved (19) SOB (shortness of breath) Status: Resolved (20) Soft tissue disorder Status: Resolved (21) Unable to void Status: Resolved (22) Weakness Status: Resolved Lymphedema Family History Family history was reviewed; no changes noted. Social History Smoking Status: Never Smoker Alcohol Use: hx of alcoholism, quit x33 yrs Drug Use: none Marital Status: single Housing status: lives alone Occupational Status: unemployed Immunizations History of Influenza Vaccine: Yes Influenza Vaccine Date: Mar 03, 2013 History of Tetanus Vaccine?: UTD History of Pneumococcal: Yes Pneumococcal Date: Feb 28, 2008 History of Hepatitis B Vaccine: No Multi-Drug Resistant Organisms History of MDRO: No Allergies Coded Allergies: No Known Allergies (Verified , 05/11/17) Home Medications Scheduled Aspirin (Aspirin Ec), 81 MG PO DAILY Benztropine Mesylate (Benztropine Mesylate), 2 MG PO HS Bupropion (Wellbutrin Sr), 150 MG PO BID Buspirone Hcl (Buspirone Hcl), 30 MG PO BID Divalproex Sodium (Depakote Er), 2,000 MG PO BID Furosemide (Lasix), 40 MG PO DAILY Levothyroxine Sodium (Levothyroxine Sodium), 175 MCG PO DAILY Lisinopril (Lisinopril), 10 MG PO DAILY Loratadine (Claritin), 10 MG PO DAILY Loxapine Succinate (Loxapine), 100 MG PO DAILY Montelukast Sodium (Singulair), 10 MG PO HS Omeprazole (Prilosec), 20 MG PO DAILY Polyethylene Glycol 3350 (Miralax), 17 GM PO BID Potassium Ext Rel (Klor-Con), 40 MEQ PO DAILY Pravastatin Sodium (Pravachol), 20 MG PO HS Ranitidine (Zantac), 150 MG PO BID Sennosides-Docusate Sodium (Senna Plus), 1 TAB PO DAILY Ziprasidone Hcl (Geodon), 80 MG PO BID Scheduled PRN Clonazepam (Klonopin), 1 MG PO TID PRN for Anxiety Naproxen (Naprosyn), 500 MG PO UD PRN for Pain Tramadol HCl (Tramadol HCl), 50-100 MG PO Q4 PRN for Pain Review of Systems Pertinent positives and negatives reviewed in HPI--all others negative Physical Exam Vital Signs Date Time Temp Pulse Resp B/P (MAP) Pulse Ox O2 Delivery O2 Flow Rate FiO2 05/11/17 16:01 36.4 113 20 125/96 96 Room Air 05/11/17 15:52 36.9 05/11/17 15:17 115 22 124/88 94 Room Air 05/11/17 14:25 95 Room Air 05/11/17 14:24 39.3 124 20 124/88 97 Room Air 05/11/17 14:23 122 General Appearance: WD/WN, no apparent distress Head: normocephalic, atraumatic Eyes: normal inspection, EOMI, sclerae normal Respiratory/Chest: no respiratory distress, + decreased breath sounds, + pertinent finding (neg for crackles or wheezing) Cardiovascular: normal peripheral pulses, + tachycardia Abdomen/GI: non tender, soft Extremities/Musculoskelatal: no calf tenderness, + pedal edema (3+ pitting) Neurologic/Psych: alert, oriented x 3, + pertinent finding (flat affect) Skin: normal color, warm/dry Diagnostics Laboratory Results Results Past 24 Hours Test 05/11/17 14:22 05/11/17 14:34 05/11/17 14:40 05/11/17 14:50 Range/Units Bedside Glucose 164 70-99 mg/dl White Blood Count 10.20 4.8-10.8 K/uL Red Blood Count 4.76 4.7-6.1 M/uL Hemoglobin 14.9 14.0-18.0 g/dL Hematocrit 43.3 42-52 % Mean Corpuscular Volume 91.0 80-100 fL Mean Corpuscular Hemoglobin 31.3 25-34 pg Mean Corpuscular Hemoglobin Concent 34.4 32-36 g/dl Platelet Count 181 130-400 K/uL Mean Platelet Volume 9.1 7.4-10.4 fL Neutrophils (%) (Auto) 87.8 % Lymphocytes (%) (Auto) 6.9 % Monocytes (%) (Auto) 4.6 % Eosinophils (%) (Auto) 0.3 % Basophils (%) (Auto) 0.0 % Neutrophils # (Auto) 8.96 1.4-6.5 K/uL Lymphocytes # (Auto) 0.70 1.2-3.4 K/uL Monocytes # (Auto) 0.47 0.11-0.59 K/uL Eosinophils # (Auto) 0.03 0-0.5 K/uL Basophils # (Auto) 0.00 0-0.2 K/uL RDW Standard Deviation 46.4 36.4-46.3 fL RDW Coefficient of Variation 13.8 11.5-14.5 % Immature Granulocyte % (Auto) 0.4 % Immature Granulocyte # (Auto) 0.04 0.00-0.02 K/uL Red Blood Cell Morphology Unremarkable Prothrombin Time 10.4 9.0-12.0 SECONDS Prothromb Time International Ratio 1.0 0.9-1.1 Activated Partial Thromboplast Time 24.8 21.0-31.0 SECONDS Partial Thromboplastin Ratio 1.0 Sodium Level 130 136-145 mmol/L Potassium Level 4.5 3.5-5.1 mmol/L Chloride Level 97 98-107 mmol/L Carbon Dioxide Level 26 21-32 mmol/L Anion Gap 7.0 3-11 mmol/L Blood Urea Nitrogen 22 7-18 mg/dl Creatinine 1.20 0.60-1.40 mg/dl Est Creatinine Clear Calc Drug Dose 85.2 ml/min Estimated GFR () 76.3 Estimated GFR (Non- 65.8 BUN/Creatinine Ratio 18.1 10-20 Random Glucose 109 70-99 mg/dl Calcium Level 8.7 8.5-10.1 mg/dl Total Bilirubin 0.4 0.2-1 mg/dl Direct Bilirubin 0.1 0-0.2 mg/dl Aspartate Amino Transf (AST/SGOT) 20 15-37 U/L Alanine Aminotransferase (ALT/SGPT) 23 12-78 U/L Alkaline Phosphatase 82 45-117 U/L Troponin I < 0.015 0-0.045 ng/ml Total Protein 6.4 6.4-8.2 gm/dl Albumin 3.3 3.4-5.0 gm/dl Lipase 128 73-393 U/L Influenza Type A Antigen Neg for Influ A NEG Influenza Type B Antigen Neg for Influ B NEG Bedside Lactic Acid Venous 3.96 0.90-1.70 mmol/L Test 05/11/17 15:00 05/11/17 15:10 Range/Units Venous Blood pH 7.45 7.36-7.41 Venous Blood Partial Pressure CO2 33 38.0-50.0 mmHg Venous Blood Partial Pressure O2 56 mmHg Venous Blood HCO3 23 mmol/L Venous Blood Oxygen Saturation 88.2 % Venous Blood Base Excess -0.6 mEq/L Urine Color YELLOW Urine Appearance CLEAR CLEAR Urine pH 7.5 4.5-7.5 Urine Specific [place] 1.012 1.000-1.030 Urine Protein NEG NEG Urine Glucose (UA) NEG NEG Urine Ketones NEG NEG Urine Occult Blood NEG NEG Urine Nitrite NEG NEG Urine Bilirubin NEG NEG Urine Urobilinogen NEG NEG Urine Leukocyte Esterase NEG NEG Microbiology Results 05/11/17 Blood Culture, Received Pending 05/11/17 Blood Culture, Received Pending Diagnostic Radiology CXR: PNA L base Impression Assessment and Plan 57 y/o M who was admitted on 05/11 for PNA PNA: Febrile and tachy on admission Lactic acid at 4.0 indicating possible sepsis, will repeat Started on vanc/zosyn in the ED, will continue with zosyn and monitor WBC WNL Blood cx pending CXR noted for L base PNA UA and flu neg HypoNa: appears chronic with baseline 130-138 Monitor on IVF HTN: stable, continue home meds DM: takes no medications for this and BS are WNL A1c 5.6 03/06/17 Pt was concerned about hypoglycemia on initial presentation, however seems to have resolved Lymphedema: chronic, will attempt to help arrange for lymphedema clinic on d/c Bipolar/schizophrenia: continue home meds Hyperlipidemia: continue home meds Hypothyroid: continue home meds Other: Full code although very clearly states that he does not want prolonged mechanical life support or feeding tubes SCDs for DVT proph AHA diet DO NOT ADDRESS PT "MR COLON" HE ASSOCIATES THIS WITH HIS FATHER WHOM HE DID NOT HAVE A GOOD RELATIONSHIP WITH. Prefers to be called Lam mccoy for help with arranging for lymphedema clinic appts prior to ortho surgery in June. Level of Care Telemetry Resuscitation Status FULL RESUSCITATION VTE Prophylaxis VTE Risk Assessment Done? Y/N: Yes Risk Level: Low
[2017-05-11 18:46] VITALS: BP 100/63; PULSE 101; TEMP 36.6; O2SAT 95; Ht 180.3 cm; Wt 111.6 kg
[2017-05-11] MEDS: SODIUM CHLORIDE 0.9% 1000ML 1,000 ML IV SCH (20:37)
[2017-05-11] MEDS: PIPERACILL/TAZOBAC IV 4.5 GM in DEXTROSE 5% 100ML IV SCH (20:37)
[2017-05-11] MEDS: MONTELUKAST SOD 10 MG TAB PO SCH (20:46)
[2017-05-11] MEDS: POLYETHYLENE (MIRALAX) 17 GM PACK PO SCH (20:46)
[2017-05-11] MEDS: BuPROPion SR 150 MG TABCR PO SCH (20:46)
[2017-05-11] MEDS: RANITIDINE HCL 150 MG TAB PO SCH (20:46)
[2017-05-11] MEDS: PRAVASTATIN SOD 20 MG TAB PO SCH (20:46)
[2017-05-11] MEDS: BENZTROPINE MESYLATE 1 MG TAB PO SCH (20:47)
[2017-05-11] MEDS: DIVALPROEX 500 MG EXTENDED RELEASE TAB PO SCH (20:47)
[2017-05-11] MEDS: BusPIRone 15 MG TAB PO SCH (20:48)
[2017-05-11] MEDS: ZIPRASIDONE 80 MG CAP PO SCH (20:49)
[2017-05-11] MEDS ORDERED: PIPERACILL/TAZOBAC CONSULT ACTIVE PRN (21:26)
[2017-05-11] MEDS ORDERED: LEVOFLOXACIN CONSULT ACTIVE PRN (21:45)
[2017-05-12] VITALS (7 sets, daily range): BP systolic 118–144; BP diastolic 70–99; PULSE 79–88; TEMP 36.4–37; O2SAT 94–97
[2017-05-12] MEDS: LEVOFLOXACIN 750MG / D5W IV SCH ×2 (00:08→23:14)
[2017-05-12] MEDS: PIPERACILL/TAZOBAC IV 4.5 GM in DEXTROSE 5% 100ML IV SCH ×3 (04:12→20:03)
[2017-05-12] MEDS: SODIUM CHLORIDE 0.9% 1000ML 1,000 ML IV SCH (05:54)
[2017-05-12] MEDS: LEVOTHYROXINE 175 MCG TAB PO SCH (05:54)
[2017-05-12 07:15] LABS: HEMATOCRIT 38.4 % (42-52); HEMOGLOBIN 12.6 g/dL (14.0-18.0); MEAN CELL VOLUME 92.8 fL (80-100); MEAN CORPUSCULAR HEMOGLOBIN 30.4 pg (25-34); MEAN CORPUSCULAR HGB CONC 32.8 g/dl (32-36); MEAN PLATELET VOLUME 9.2 fL (7.4-10.4); PLATELET COUNT 170 K/uL (130-400); RED CELL DISTRIBUTION WIDTH CV 14.1 % (11.5-14.5); RED CELL DISTRIBUTION WIDTH SD 47.7 fL (36.4-46.3); WHITE BLOOD COUNT 16.99 K/uL (4.8-10.8)
[2017-05-12 07:58] LABS: CALCIUM 8.7 mg/dl (8.5-10.1); CREATININE 1.22 mg/dl (0.60-1.40); POTASSIUM 4.2 mmol/L (3.5-5.1)
[2017-05-12] MEDS: PANTOprazole SOD 40 MG TAB PO SCH (08:06)
[2017-05-12] MEDS: LORATADINE 10 MG TAB PO SCH (08:06)
[2017-05-12] MEDS: POTASSIUM CHLORIDE 20 MEQ TABCR PO SCH (08:06)
[2017-05-12] MEDS: DIVALPROEX 500 MG EXTENDED RELEASE TAB PO SCH ×2 (08:07→20:10)
[2017-05-12] MEDS: BusPIRone 15 MG TAB PO SCH ×2 (08:07→20:08)
[2017-05-12] MEDS: BuPROPion SR 150 MG TABCR PO SCH ×2 (08:07→20:06)
[2017-05-12] MEDS: LISINOPRIL 10 MG TAB PO SCH (08:07)
[2017-05-12] MEDS: ZIPRASIDONE 80 MG CAP PO SCH ×2 (08:08→20:13)
[2017-05-12] MEDS: RANITIDINE HCL 150 MG TAB PO SCH ×2 (08:08→20:08)
[2017-05-12] MEDS: POLYETHYLENE (MIRALAX) 17 GM PACK PO SCH ×2 (08:09→20:00)
[2017-05-12] MEDS: DOCUSATE SODIUM/SENNA 50/8.6MG TAB PO SCH (08:09)
[2017-05-12] MEDS: FUROSEMIDE 40 MG TAB PO SCH (08:09)
[2017-05-12] MEDS: ASPIRIN 81 MG ECTAB PO SCH (08:09)
--- NOTE | 2017-05-12 08:25 | Progress Note ---
Subjective Date of Service: May 12, 2017. Subjective this pt states he feels so much better. eh has less coughing, but is very concerned about his lower legs. otherwise he wants to go home as soon as able Problem List Medical Problems: (1) Abrasion of knee, right Status: Acute (2) Acidosis Status: Acute (3) Anxiety Status: Acute (4) Anxiety Status: Acute (5) Bronchitis Status: Acute (6) Chronic acquired lymphedema Status: Acute (7) Constipation Status: Acute (8) Dehydration Status: Acute (9) Erythema multiforme Status: Acute (10) Fall Status: Acute (11) Frequent falls Status: Acute (12) Injury of left toe Status: Acute (13) Left knee pain Status: Acute (14) Nail avulsion, toe Status: Acute (15) Nausea & vomiting Status: Acute (16) Paranoia Status: Acute (17) Pill esophagitis Status: Acute (18) Pneumonia involving right lung Status: Acute (19) Precordial chest pain Status: Acute (20) Rash Status: Acute (21) Suicidal ideation Status: Acute (22) Vomiting Status: Acute Review of Systems Constitutional: + weakness, + fatigue, No fever, No chills Eyes: No worsening of vision, No eye pain Respiratory: No cough, No shortness of breath Cardiac: + edema, No orthopnea Abdomen: No pain, No nausea, No vomiting, No diarrhea Musculoskeletal: No joint pain, No muscle pain Psychiatric: No depression symptoms, No anhedonism Objective Vital Signs Date Time Temp Pulse Resp B/P (MAP) Pulse Ox O2 Delivery O2 Flow Rate FiO2 05/12/17 04:18 36.4 83 118/75 (89) 95 Room Air 05/12/17 04:00 Room Air 05/12/17 00:34 36.7 85 23 120/70 (87) 95 Room Air 05/12/17 00:02 Room Air 05/11/17 20:00 Room Air 05/11/17 18:46 36.6 101 18 100/63 95 Room Air 05/11/17 18:26 37.0 99 20 107/67 92 05/11/17 17:59 37.0 99 20 107/67 92 Room Air 05/11/17 17:13 101 22 125/96 93 Room Air 05/11/17 16:01 36.4 113 20 125/96 96 Room Air 05/11/17 15:52 36.9 05/11/17 15:17 115 22 124/88 94 Room Air 05/11/17 14:25 95 Room Air 05/11/17 14:24 39.3 124 20 124/88 97 Room Air 05/11/17 14:23 122 Physical Exam General Appearance: WD/WN, + mild distress Eyes: normal inspection, sclerae normal Respiratory/Chest: chest non-tender, no respiratory distress, + rhonchi Cardiovascular: regular rate, rhythm, no murmur Abdomen: normal bowel sounds, non tender, soft Extremities: + pedal edema, + swelling Neurologic/Psychiatric: alert, oriented x 3 Skin: normal color, warm/dry, no rash Laboratory Results Last 24 Hours Test 05/11/17 14:22 05/11/17 14:34 05/11/17 14:40 05/11/17 14:50 Bedside Glucose 164 mg/dl White Blood Count 10.20 K/uL Red Blood Count 4.76 M/uL Hemoglobin 14.9 g/dL Hematocrit 43.3 % Mean Corpuscular Volume 91.0 fL Mean Corpuscular Hemoglobin 31.3 pg Mean Corpuscular Hemoglobin Concent 34.4 g/dl Platelet Count 181 K/uL Mean Platelet Volume 9.1 fL Neutrophils (%) (Auto) 87.8 % Lymphocytes (%) (Auto) 6.9 % Monocytes (%) (Auto) 4.6 % Eosinophils (%) (Auto) 0.3 % Basophils (%) (Auto) 0.0 % Neutrophils # (Auto) 8.96 K/uL Lymphocytes # (Auto) 0.70 K/uL Monocytes # (Auto) 0.47 K/uL Eosinophils # (Auto) 0.03 K/uL Basophils # (Auto) 0.00 K/uL RDW Standard Deviation 46.4 fL RDW Coefficient of Variation 13.8 % Immature Granulocyte % (Auto) 0.4 % Immature Granulocyte # (Auto) 0.04 K/uL Red Blood Cell Morphology Unremarkable Prothrombin Time 10.4 SECONDS Prothromb Time International Ratio 1.0 Activated Partial Thromboplast Time 24.8 SECONDS Partial Thromboplastin Ratio 1.0 Sodium Level 130 mmol/L Potassium Level 4.5 mmol/L Chloride Level 97 mmol/L Carbon Dioxide Level 26 mmol/L Anion Gap 7.0 mmol/L Blood Urea Nitrogen 22 mg/dl Creatinine 1.20 mg/dl Est Creatinine Clear Calc Drug Dose 85.2 ml/min Estimated GFR () 76.3 Estimated GFR (Non- 65.8 BUN/Creatinine Ratio 18.1 Random Glucose 109 mg/dl Calcium Level 8.7 mg/dl Total Bilirubin 0.4 mg/dl Direct Bilirubin 0.1 mg/dl Aspartate Amino Transf (AST/SGOT) 20 U/L Alanine Aminotransferase (ALT/SGPT) 23 U/L Alkaline Phosphatase 82 U/L Troponin I < 0.015 ng/ml Total Protein 6.4 gm/dl Albumin 3.3 gm/dl Lipase 128 U/L Influenza Type A Antigen Neg for Influ A Influenza Type B Antigen Neg for Influ B Bedside Lactic Acid Venous 3.96 mmol/L Test 05/11/17 15:00 05/11/17 15:10 05/12/17 06:26 05/12/17 06:29 Venous Blood pH 7.45 Venous Blood Partial Pressure CO2 33 mmHg Venous Blood Partial Pressure O2 56 mmHg Venous Blood HCO3 23 mmol/L Venous Blood Oxygen Saturation 88.2 % Venous Blood Base Excess -0.6 mEq/L Urine Color YELLOW Urine Appearance CLEAR Urine pH 7.5 Urine Specific [place] 1.012 Urine Protein NEG Urine Glucose (UA) NEG Urine Ketones NEG Urine Occult Blood NEG Urine Nitrite NEG Urine Bilirubin NEG Urine Urobilinogen NEG Urine Leukocyte Esterase NEG White Blood Count 16.99 K/uL Red Blood Count 4.14 M/uL Hemoglobin 12.6 g/dL Hematocrit 38.4 % Mean Corpuscular Volume 92.8 fL Mean Corpuscular Hemoglobin 30.4 pg Mean Corpuscular Hemoglobin Concent 32.8 g/dl RDW Standard Deviation 47.7 fL RDW Coefficient of Variation 14.1 % Platelet Count 170 K/uL Mean Platelet Volume 9.2 fL Sodium Level 136 mmol/L Potassium Level 4.2 mmol/L Chloride Level 104 mmol/L Carbon Dioxide Level 26 mmol/L Anion Gap 6.0 mmol/L Blood Urea Nitrogen 14 mg/dl Creatinine 1.22 mg/dl Est Creatinine Clear Calc Drug Dose 83.8 ml/min Estimated GFR () 74.7 Estimated GFR (Non- 64.5 BUN/Creatinine Ratio 11.6 Random Glucose 96 mg/dl Calcium Level 8.7 mg/dl Magnesium Level 1.9 mg/dl Lactic Acid Level 1.3 mmol/L Assessment and Plan 57 y/o M who was admitted on 05/11 for PNA, felt symptomatic subjective hypoglycemia and baseline schizophrenia PNA: Febrile and tachy on admission, vanc/zosyn in the ED, will continue with zosyn and monitor CXR noted for L base PNA UA and flu neg HypoNa: appears chronic with baseline 130-138 HTN: stable, continue home meds DM: takes no medications for this and BS are WNL A1c 5.6 03/06/17 Lymphedema: chronic, outpt lymphedema Bipolar/schizophrenia: continue home meds Hyperlipidemia: continue home meds Hypothyroid: continue home meds Other: Full code although very clearly states that he does not want prolonged mechanical life support or feeding tubes SCDs for DVT proph AHA diet DO NOT ADDRESS PT "MR COLON" HE ASSOCIATES THIS WITH HIS FATHER WHOM HE DID NOT HAVE A GOOD RELATIONSHIP WITH. Prefers to be called Lam mccoy for help with arranging for lymphedema clinic appts prior to ortho surgery in June.
[2017-05-12] MEDS: BENZTROPINE MESYLATE 1 MG TAB PO SCH (21:28)
[2017-05-12] MEDS: MONTELUKAST SOD 10 MG TAB PO SCH (21:28)
[2017-05-12] MEDS: PRAVASTATIN SOD 20 MG TAB PO SCH (21:28)
[2017-05-13 00:03] VITALS: BP 130/84; PULSE 78; TEMP 36.6; O2SAT 95
[2017-05-13] MEDS ORDERED: DEXTROSE 50% 50 ML SYR ONE (03:09)
[2017-05-13] MEDS ORDERED: GLUCAGON FOR INJ 1 MG VIAL SQ STA (03:22)
[2017-05-13] MEDS ORDERED: NURSING VERBAL MED ORDER ONE (03:30)
[2017-05-13] MEDS: PIPERACILL/TAZOBAC IV 4.5 GM in DEXTROSE 5% 100ML IV SCH (04:24)
[2017-05-13] MEDS: SODIUM CHLORIDE 0.9% 1000ML 1,000 ML IV SCH ×2 (05:21→07:00)
[2017-05-13] MEDS: LEVOTHYROXINE 175 MCG TAB PO SCH (06:39)
[2017-05-13 07:32] VITALS: BP 142/85; PULSE 85; TEMP 36.4; O2SAT 95
[2017-05-13 08:00] VITALS: O2SAT 95
[2017-05-13] MEDS: POLYETHYLENE (MIRALAX) 17 GM PACK PO SCH (08:00)
[2017-05-13] MEDS: DOCUSATE SODIUM/SENNA 50/8.6MG TAB PO SCH (08:00)
[2017-05-13] MEDS: ASPIRIN 81 MG ECTAB PO SCH (08:13)
[2017-05-13] MEDS: POTASSIUM CHLORIDE 20 MEQ TABCR PO SCH (08:14)
[2017-05-13] MEDS: PANTOprazole SOD 40 MG TAB PO SCH (08:14)
[2017-05-13] MEDS: LISINOPRIL 10 MG TAB PO SCH (08:14)
[2017-05-13] MEDS: RANITIDINE HCL 150 MG TAB PO SCH (08:14)
[2017-05-13] MEDS: BuPROPion SR 150 MG TABCR PO SCH (08:15)
[2017-05-13] MEDS: LORATADINE 10 MG TAB PO SCH (08:15)
[2017-05-13] MEDS: DIVALPROEX 500 MG EXTENDED RELEASE TAB PO SCH (08:15)
[2017-05-13] MEDS: FUROSEMIDE 40 MG TAB PO SCH (08:16)
[2017-05-13] MEDS: BusPIRone 15 MG TAB PO SCH (08:16)
[2017-05-13] MEDS: ZIPRASIDONE 80 MG CAP PO SCH (08:16)
[2017-05-13] MEDS ORDERED: LVQ750 PO (09:40)
--- NOTE | 2017-05-13 09:52 | Discharge Instructions ---
Discharge Instructions Date of Service May 13, 2017. Admission Reason for Admission: PNA Discharge Discharge Diagnosis / Problem: Pneumonia Discharge Goals Goal(s): Decrease discomfort, Improve function, Increase independence Activity Recommendations Activity Limitations: resume your previous activity . Instructions / Follow-Up Instructions / Follow-Up Pneumonia: - Continue your antibiotic (Levaquin). Take one tablet each day until all the pills are gone. Low Sugars: - Recommend to keep snacks near your bed or at places that are easily obtained. When you feel like your sugars are low would recommend to check them with your sugar reader. - If you feel like your sugars are low you can eat a snack and wait 20 minutes and if feeling better you can then get up. If you still feel like your sugars are low you can eat more of your snack. - You can keep juice, trail mix, granola bars near your bed or chairs. Current Hospital Diet Patient's current hospital diet: AHA Diet (Heart Healthy) Discharge Diet Recommended Diet: AHA Diet (Heart Healthy) Pending Studies Studies pending at discharge: no Laboratory Results Hemoglobin A1c Test 03/06/17 17:53 Range/Units Estimated Average Glucose 114 mg/dl Hemoglobin A1c 5.6 4.5-5.6 % Medical Emergencies . Who to Call and When: Medical Emergencies: If at any time you feel your situation is an emergency, please call 911 immediately. . Non-Emergent Contact Non-Emergency issues call your: Primary Care Provider Call Non-Emergent contact if: you have a fever, your pain is concerning you, you have any medication questions . . "Provider Documentation" section prepared by Kamryn Fang. . VTE Core Measure Inpt VTE Proph given/why not?: SCD's
[2017-05-13 10:05] VITALS: BP 142/85; PULSE 85; TEMP 36.4; O2SAT 95
[2017-05-13] MEDS ORDERED: LEVOFLOXACIN 750 MG TAB PO SCH (11:00)
--- NOTE | 2017-05-13 13:17 | Discharge Summary ---
Discharge Summary Date of Service May 13, 2017. Discharge Summary Admission Date: May 11, 2017 at 17:01 Discharge Date: May 13, 2017 Discharge Disposition: Home Principal Diagnosis: Community-Acquired Pneumonia Problems/Secondary Diagnoses: 1. Asthma 2. B/L Lower Extremity Lymphedema 3. HTN 4. Bipolar Disorder 5. T2DM 6. GERD 7. Hypothyroidism 8. Hyponatremia 9. Chronic Knee Pain 10. Schizophrenia Immunizations: Have You Had Influenza Vaccine: Yes Influenza Vaccine Date: Mar 03, 2013 History of Tetanus Vaccine?: UTD History of Pneumococcal: Yes Pneumococcal Date: Feb 28, 2008 History of Hepatitis B Vaccine: No Procedures: CHEST ONE VIEW PORTABLE FINDINGS: Rather diffuse parenchymal infiltrate left base. Lungs otherwise appear clear. Heart is top limits normal in terms of size. Diaphragms smooth. IMPRESSION: Diffuse parenchymal infiltrate left base Medication Reconciliation New Medications: Levofloxacin (Levofloxacin) 750 Mg Tab 750 MG PO DAILY@11 for 4 Days, #4 TAB Take daily starting on Saturday05/14/17. Continued Medications: Aspirin (Aspirin Ec) 81 Mg Tab 81 MG PO DAILY Benztropine Mesylate (Benztropine Mesylate) 1 Mg Tab 2 MG PO HS TWO 1 MG TABLETS AT BEDTIME Bupropion (Wellbutrin Sr) 150 Mg Ertab 150 MG PO BID Buspirone Hcl (Buspirone Hcl) 30 Mg Tab 30 MG PO BID Clonazepam (Klonopin) 1 Mg Tab 1 MG PO TID PRN for Anxiety 1 TABLET UP TO 3 TIMES DAILY, NEEDED. Divalproex Sodium (Depakote Er) 500 Mg Tab 2000 MG PO BID FOUR 500 MG TABLETS TWICE DAILY Furosemide (Lasix) 40 Mg Tab 40 MG PO DAILY Levothyroxine Sodium (Levothyroxine Sodium) 175 Mcg Tab 175 MCG PO DAILY Lisinopril (Lisinopril) 10 Mg Tab 10 MG PO DAILY Loratadine (Claritin) 10 Mg Tab 10 MG PO DAILY Loxapine Succinate (Loxapine) 50 Mg Cap 100 MG PO DAILY Montelukast Sodium (Singulair) 10 Mg Tab 10 MG PO HS Naproxen (Naprosyn) 500 Mg Tab 500 MG PO UD PRN for Pain Omeprazole (Prilosec) 20 Mg Capcr 20 MG PO DAILY Polyethylene Glycol 3350 (Miralax) 1 Pow Pow 17 GM PO BID Potassium Ext Rel (Klor-Con) 20 Meq Tabcr 40 MEQ PO DAILY TWO 20 MEQ TABLETS DAILY Pravastatin Sodium (Pravachol) 20 Mg Tab 20 MG PO HS Ranitidine (Zantac) 150 Mg Tab 150 MG PO BID Sennosides-Docusate Sodium (Senna Plus) 1 Tab Tab 1 TAB PO DAILY Tramadol HCl (Tramadol HCl) 50 Mg Tab 50-100 MG PO Q4 PRN for Pain Ziprasidone Hcl (Geodon) 80 Mg Cap 80 MG PO BID Discharge Exam Review of Systems: Constitutional: No fever, No chills Respiratory: No cough, No dyspnea on exertion, No dyspnea at rest Cardiovascular: No chest pain Abdomen: No pain, No nausea, No vomiting, No diarrhea, No constipation Musculoskeletal: + joint pain (chronic knee pain), + swelling (diffuse b/l legs) Genitourinary - Male: No dysuria Physical Exam: General Appearance: WD/WN, no apparent distress Eyes: sclerae normal ENT: hearing grossly normal Neck: supple, no JVD, trachea midline Respiratory/Chest: lungs clear, normal breath sounds, no respiratory distress, no accessory muscle use, + pertinent finding (takes short quick breaths ) Cardiovascular: regular rate, rhythm, no gallop, no murmur Abdomen / GI: normal bowel sounds, non tender, soft Extremities: + pertinent finding (cyanosis of fingertips with 2+ radial/ ulnar pulses and immediate cap refill (chronic); large edematous b/l lower extremities) Neurologic/Psychiatric: alert, oriented x 3 Skin: + cyanosis (see extremities) Hospital Course ADMISSION: 57 y/o M who came to the ED over concerns that he was hypoglycemic today. He reported low BS in the 50s-60s upon waking today. He states he is diabetic but has been off of medications for many years because if he takes them , he becomes hypoglycemic. He also cannot follow a DM diet for this reason. Pt admits to mild nausea but no emesis. He also felt chilled and shaky this AM. Pt denies fever, SOB, chest pain, abd pain, n/v/c/d. Pt states he has lymphedema but when he goes to a specific lymphedema clinic, it fully resolves. He has not been seen by them for several months, although I am not certain why. He states that his LE swelling is his usual without lymphedema tx. He states he is supposed to have a R knee replacement with Dr. Alejandra in June, however his swelling needs managed via lymphedema clinic prior to this happening. HOSPITAL COURSE: Lam was admitted for Hypoglycemia and Pneumonia. He will complete Levaquin 750 mg daily for 7 days total and will finish course on . He appears to have a baseline sugar <100. Did have a hypoglycemic episode down to 20s but did improve with snacks/juice and glucagon. Recommended to keep easily accessible snack near the bed and chairs to help prevent falls associated with low sugars. A c-peptide and insulin reference lab sent and will need followed by PCP. Does state his portions in-hospital smaller then he normally eats. Of note, patient has cyanotic finger tips but states this is ongoing. Reports its how he knows his sugars are low. Does have good cap refill and pulses. May benefit from re-establishment with lymphedema clinic prior to orthopedic intervention for his R knee. Will provide Rx to case management to help assist. Did review outpatient endocrinology notes as his hypoglycemia cause is unknown at this time. Did encourage to check his sugars with a reader but states he normally just knows they are low and eats something. Does have a patient case manager who follows with him PA Physician Supervision Note: I interviewed and examined the patient. Discussed with Kamryn GODOY and agree with findings and plan as documented in the note. Any exceptions or clarifications are listed here: None This patient has a complicated course mostly impacted by his bipolar disorder. Patient initially presented for concerns of hypoglycemia however was felt to have mild infiltrate with chest x-ray he's improved dramatically over the stay. He does have some distal finger discoloration which could be are not type phenomenon this seems to come and go related to temperature is not overly painful. Patient was seen on his last hospital day was looking back to his baseline with the exception of persistent lower extremity swelling he states he has previously seen lymphedema clinic which will be involved with again vitals were reviewed and stable his lung exam was clear he'll be discharged home to complete an outpatient course of levofloxacin as mentioned above and follow up with his primary care provider Dr. Carrillo Documented By: Adan Gomes . Total Time Spent: Greater than 30 minutes This includes examination of the patient, discharge planning, medication reconciliation, and communication with other providers. Discharge Instructions Please refer to the electronic Patient Visit Report (Discharge Instructions) for additional information. Additional Copies To Yohannes Carrillo M.D.
--- NOTE | 2017-05-14 10:58 | EDITING REQUIRED CODING QUERY ---
SEPSIS Note: Sepsis and possible Sepsis is documented on the ER H&P and H&P only. To promote full compliance with coding requirements relating to patient care, physician participation is requested in all cases of auditing coder uncertainty. Please assist us with the question(s) below: In responding to this query, please exercise your independent professional judgement. The fact that a question is asked does not imply that any particular answer is desired or expected. We appreciate your clarification on this issue. Throughout the medical record, you have clearly documented a localized infection and your patient has clinical evidence of a generalized sepsis or severe sepsis. The term urosepsis is a nonspecific entity and is coded as an UTI. If the patient has sepsis, severe sepsis, from an urinary source or some other source, please clarify in your response below. The medical record reflects the following clinical findings: (With dates as appropriate) (Body temperature of >38.3 C(101 F) or <36 C(96.8F), pulse >90/minute, respirations >20/minute, WBC count >12,000 or <4,000, altered mental status, significant edema or positive fluid balance, hyperglycemia without diabetes, hypotension, metabolic acidosis (elev. lactate level, anion gap or reduced blood pH), shock, positive blood culture (enter organism) ()Bacteremia (Nonspecific laboratory finding of bacteria in the blood) Specify Organism () Present on Admission () Not present on admission () Unable to clinically determine () Septicemia (Systemic disease associated with the presence of pathogenic microorganisms in the blood): Specify Organism () Present on Admission () Not present on admission () Unable to clinically determine () Sepsis Specify Organism Specify Associated Condition/Diagnosis () Present on Admission () Not present on admission () Unable to clinically determine () Severe Sepsis (Sepsis associated with acute organ dysfunction) Specify Organism Specify Associated Condition/Diagnosis () Present on Admission () Not present on admission () Unable to clinically determine () Septic Shock (Severe sepsis with acute circulatory failure, unexplained by other causes) () Present on Admission () Not present on admission () Unable to clinically determine ()xx Other, patient has: this pt was not septic nor bacteremic, he just simpley had pneumonia and hypoglycemia
== END 2017-05-13 11:15 | disposition home or self-care (01) | DRG 194 ==
LOC: EDBD 14:17 → C.EDC 14:18 → C.2E 17:01 → ENRESERV 17:46 → C.MS4W 05-12 15:25
PROVIDERS: ADMIT Family Medicine; ATTEND Internal Medicine
DX: J18.9 Pneumonia, unspecified organism (principal); E87.2 Acidosis; E87.1 Hypo-osmolality and hyponatremia; E11.649 Type 2 diabetes mellitus with hypoglycemia without coma; F31.9 Bipolar disorder, unspecified; J45.909 Unspecified asthma, uncomplicated; I89.0 Lymphedema, not elsewhere classified; I10 Essential (primary) hypertension; K21.9 Gastro-esophageal reflux disease without esophagitis; E03.9 Hypothyroidism, unspecified; F20.9 Schizophrenia, unspecified; F10.21 Alcohol dependence, in remission; Z79.899 Other long term (current) drug therapy; Z79.82 Long term (current) use of aspirin; Z83.3 Family history of diabetes mellitus; Z82.49 Family history of ischemic heart disease and other diseases of the circulatory system

== ENCOUNTER 2017-05-31 10:38 | Emergency (ER) | payer OTHER ==
[~2017-05-31] VITALS: Ht 180.3 cm; Wt 117.4 kg
[~2017-05-31 10:38] MED LIST changes: -ASPEC81 PO; +ASPI81TA28 PO; +BENZ-88 PO; +BUPR-79 PO; -BUPR150T5 PO; -CEPH500C2 PO; -DIVA250T PO; -ECON118C TOP; -ESCI10TA17 PO; -FLUO20CA20 PO; -FLUT1SPR12 NAE; -FRS/40 PO; +FURO40TA3 PO; -GLC500 PO; -GLC850 PO; +LVQ750 PO; -MAGN400T6 PO; +MONT1TAB3 PO; -MONT1TAB5 PO; -OMEP20CA9 PO; -PRAV20TA PO; +PRAV20TA2 PO; -PRED20TA PO; +PRLSR20 PO; -SULF400T7 PO; -SYMIN160 INH; -TRAM-10 PO; +ULT50 PO; -VGR50 PO; -VNTHFA/IN INH; -ZIPR1CAP4 PO
[2017-05-31 10:40] VITALS: TEMP 36.8; Ht 180.3 cm; Wt 117.4 kg
[2017-05-31 10:43] VITALS: O2SAT 94
--- NOTE | 2017-05-31 11:15 | EMERGENCY ROOM VISIT NOTE ---
History Report prepared by Beny: Lupe Toro Under the Supervision of: Gorge AdornoO. 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 The patient had an unwitnessed fall with LOC for an unknown time. The patient reports waking up on the floor, though he is unsure of how long he was out for. He does not remember the fall before it occurred. He has a history of falls and had a recent fall three weeks ago. He notes he had LOC at that time. The patient believes he may have hit his head, because he felt head pain when he woke up, though currently denies any head pain. He denies any back pain, leg pain, or any other pain. He notes that he is expected to have a total knee replacement in the near future. He has a history of pneumonia and diabetes with hypoglycemia. He checks his blood sugar nightly. He states that he will eat a peanut butter and jelly sandwich to boost his blood sugar. He has chronic bilateral LE lymphedema. 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 Review of Systems See HPI for pertinent positives & negatives. A total of 10 systems reviewed and were otherwise negative. Past Medical & Surgical Medical Problems: (1) Altered mental status (2) Asthma (3) Benign hypertension (4) Bilateral lower extremity edema (5) Bipolar disorder (6) Community acquired pneumonia (7) Diabetes (8) Gastroesophageal reflux disease (9) Hypoglycemia (10) Hyponatremia (11) Hypothyroidism (12) Hypoxia (13) Insomnia (14) Knee pain (15) Lymphedema of both lower extremities (16) PNA (pneumonia) (17) Pneumonia (18) Pneumonia (19) Rib pain on left side (20) Schizophrenia (21) Sepsis (22) Sepsis (23) SOB (shortness of breath) (24) Soft tissue disorder (25) Unable to void (26) Weakness Family History Diabetes mellitus Gallbladder disease Hypertension Social History Smoking Status: Former Smoker Alcohol Use: none Drug Use: none Marital Status: single Housing Status: lives alone Occupation Status: unemployed Current/Historical Medications Scheduled Aspirin (Aspirin Ec), 81 MG PO DAILY Benztropine Mesylate (Benztropine Mesylate), 2 MG PO HS Bupropion (Wellbutrin Sr), 150 MG PO BID Buspirone Hcl (Buspirone Hcl), 30 MG PO BID Divalproex Sodium (Depakote Er), 2,000 MG PO BID Divalproex Sodium (Depakote Etended-Release), 2,000 MG PO AFTERNOON Divalproex Sodium (Depakote Etended-Release), 1,500 MG PO QPM Fluoxetine (Prozac), 60 MG PO HS Furosemide (Lasix), 40 MG PO DAILY Levothyroxine Sodium (Levothyroxine Sodium), 175 MCG PO DAILY Lisinopril (Lisinopril), 10 MG PO DAILY Loratadine (Claritin), 10 MG PO DAILY Loxapine Succinate (Loxapine), 100 MG PO DAILY Magnesium Oxide (Mag-Ox), 400 MG PO DAILY Metformin Hcl (Glucophage), 500 MG PO BID Montelukast Sodium (Singulair), 10 MG PO HS Omeprazole (Prilosec), 20 MG PO DAILY Polyethylene Glycol 3350 (Miralax), 17 GM PO BID Potassium Ext Rel (Klor-Con), 40 MEQ PO DAILY Pravastatin Sodium (Pravachol), 20 MG PO HS Prednisone (Prednisone), 40 MG PO DAILY Ranitidine (Zantac), 150 MG PO BID Sennosides-Docusate Sodium (Senna Plus), 1 TAB PO DAILY Ziprasidone Hcl (Geodon), 80 MG PO BID Scheduled PRN Clonazepam (Klonopin), 1 MG PO TID PRN for Anxiety Metformin Hcl (Glucophage), 500 MG PO DAILY PRN for Hypoglycemia Treatment Naproxen (Naprosyn), 500 MG PO UD PRN for Pain Tramadol HCl (Tramadol HCl), 50-100 MG PO Q4 PRN for Pain Allergies Coded Allergies: No Known Allergies (Verified , 05/31/17) Physical Exam Vital Signs Date Time Temp Pulse Resp B/P (MAP) Pulse Ox O2 Delivery O2 Flow Rate FiO2 05/31/17 11:50 98 16 132/76 98 Room Air 05/31/17 10:47 100 05/31/17 10:43 94 Room Air 05/31/17 10:40 36.8 96 16 127/84 96 Room Air Physical Exam CONSTITUTIONAL/VITAL SIGNS: Reviewed / noted above. GENERAL: Non-toxic in appearance. INTEGUMENTARY: Warm, dry, and [place]. HEAD: Normocephalic. EYES: without scleral icterus or trauma. ENT/OROPHARYNX: clear and moist. LYMPHADENOPATHY/NECK: Is supple without lymphadenopathy or meningismus. RESPIRATORY: Lungs clear and equal. CARDIOVASCULAR: Regular rate and rhythm. GI/ABDOMEN: Soft and nontender. No organomegaly or pulsatile mass. No rebound or guarding. Normal bowel sounds. EXTREMITIES: Warm and well perfused. Chronic peripheral lymphedema in LE. BACK: No CVA tenderness. NEUROLOGICAL: Intact without focal deficits. PSYCHIATRIC: normal affect. MUSCULOSKELETAL: Normally developed with good muscle tone. Medical Decision & Procedures ECG Indication: other (fall) Rate (beats per minute): 98 Rhythm: normal sinus Findings: RBBB, no acute ischemic change, no ectopy Change: Patient's electrocardiogram interpreted by me. ED Course 1054: Previous medical records were reviewed. The patient was evaluated in room A3. A complete history and physical examination was performed. I discussed the results and treatment plan with the patient. I answered all pertaining questions that he had. He expressed understanding and verbalized agreement. The patient will be discharged home. Medical Decision Differentials include: Close head injury, intracranial bleed, facial trauma, cervical spine trauma, chest and thoracic trauma, abdominal and intra-abdominal trauma, spine neurologic trauma, and extremity trauma. This is a 57-year-old male who presents to the ED with a chief complaint of a fall. The patient had an unwitnessed fall. He states he awoke on the floor. He states that this happens on occasion due to hypoglycemia. The patient denies any injuries. He denies any pain. No headaches, chest pains or shortness of breath. He is feeling fine now. The patient's exam was unremarkable. There is no findings to suggest acute trauma to the head or elsewhere. After examining the patient, he felt comfortable going home. He was discharged. Medication Reconcilliation Current Medication List: was personally reviewed by me Blood Pressure Screening Patient's blood pressure: Normal blood pressure Impression Primary Impression: Fall Scribe Attestation The scribe's documentation has been prepared under my direction and personally reviewed by me in its entirety. I confirm that the note above accurately reflects all work, treatment, procedures, and medical decision making performed by me. Departure Information Dispostion Home / Self-Care Referrals Yohannes Carrillo M.D. (PCP) Forms HOME CARE DOCUMENTATION FORM, IMPORTANT VISIT INFORMATION Patient Instructions My [facility] Additional Instructions Follow-up with your doctor for further care and evaluation in 1-2 days. Return to the emergency department for worsening or new symptoms or any concerns. You have been examined and treated today on an emergency basis only. This is not a substitute for, or an effort to provide, complete comprehensive medical care. It is impossible to recognize and treat all injuries or illnesses in a single emergency department visit. It is therefore important that you follow up closely with your doctor. Call as soon as possible for an appointment.
[2017-05-31] MEDS ORDERED: PRED20TA PO (11:26)
[2017-05-31] MEDS ORDERED: GLC/500 PO ×2 (11:26→11:31)
[2017-05-31] MEDS ORDERED: FLUO20CA35 PO (11:26)
[2017-05-31] MEDS ORDERED: MAGN400T6 PO (11:26)
[2017-05-31] MEDS ORDERED: DPKSR/500 PO ×2 (11:31)
[2017-05-31 11:50] VITALS: BP 132/76; PULSE 98; O2SAT 98
== END 2017-05-31 12:00 | disposition home or self-care (01) ==
LOC: EDBD 10:38 → C.EDA 10:40
DX: Z04.3 Encounter for examination and observation following other accident (principal); E11.649 Type 2 diabetes mellitus with hypoglycemia without coma; Z91.81 History of falling; I89.0 Lymphedema, not elsewhere classified; I10 Essential (primary) hypertension; F31.9 Bipolar disorder, unspecified; K21.9 Gastro-esophageal reflux disease without esophagitis; E03.9 Hypothyroidism, unspecified; G47.00 Insomnia, unspecified; F20.9 Schizophrenia, unspecified; Z87.891 Personal history of nicotine dependence; Z79.82 Long term (current) use of aspirin; Z79.84 Long term (current) use of oral hypoglycemic drugs; Z79.52 Long term (current) use of systemic steroids; Z83.3 Family history of diabetes mellitus; Z83.79 Family history of other diseases of the digestive system; Z82.49 Family history of ischemic heart disease and other diseases of the circulatory system

== ENCOUNTER 2017-06-14 22:11 | Inpatient (IN) | payer OTHER ==
[~2017-06-14] VITALS: Ht 180.3 cm; Wt 117.4 kg
[~2017-06-14 22:11] MED LIST changes: +DPKSR/500 PO; +FLUO20CA35 PO; +GLC/500 PO; -LVQ750 PO; +MAGN400T6 PO; +PRED20TA PO; +RANI150T85 PO; -ZNTT/150 PO
--- NOTE | 2017-06-15 00:21 | EMERGENCY ROOM VISIT NOTE ---
History Report prepared by Beny: Adan Longoria Under the Supervision of: Dr. Sarah Ross D.O. First contact with patient: 23:04 Chief Complaint: MENTAL HEALTH EVALUATION Stated Complaint: MHID History of Present Illness The patient is a 57 year old male who presents to the Emergency Room with complaints of worsening mental state that began prior to arrival. Nurse states that the patient admitted that he was going to kill himself today or tomorrow by overdosing on pills. She adds that the patient became frustrated when he was told to come into the ER. She adds that mobile crisis brought the patient to the ER after they were called to the patient's residence. Patient states that the worsening mental state began when he was going to [employer]. He states him and his best friend were sitting in the parking lot waiting for the electric shopping cart. Patient adds that he needs the electric shopping cart because he had left knee surgery on July 16. Patient states that he was eventually able to get the electric shopping cart and then bought about 8-9 days of food at the grocery store. He states that he is frustrated because people are snapping pictures of him for "fun and games". He states that the students in his apartment building treat him bad and "are totally against him". Patient adds that he became irritated earlier when he saw the handbag framer of his apartment building not get ticketed for not paying a parking meter. He states he has been living in the same apartment building for the past 20 years. He denies needing admission into the hospital. He adds that he does not talk to his mother and that he intermittently talks to his his sister. He adds that his sister does not let him talk to his nephew which frustrates him. Patient adds that he is hypoglycemic. Source of History: patient Onset: Prior to arrival Position: other (Global) Timing: worsening Modifying Factors (Relieving): other (None) Review of Systems See HPI for pertinent positives & negatives. A total of 10 systems reviewed and were otherwise negative. Past Medical & Surgical Medical Problems: (1) Altered mental status (2) Asthma (3) Benign hypertension (4) Bilateral lower extremity edema (5) Bipolar disorder (6) Community acquired pneumonia (7) Diabetes (8) Gastroesophageal reflux disease (9) Hypoglycemia (10) Hyponatremia (11) Hypothyroidism (12) Hypoxia (13) Insomnia (14) Knee pain (15) Lymphedema of both lower extremities (16) PNA (pneumonia) (17) Pneumonia (18) Pneumonia (19) Rib pain on left side (20) Schizoaffective disorder, bipolar type (21) Schizophrenia (22) Sepsis (23) Sepsis (24) SOB (shortness of breath) (25) Soft tissue disorder (26) Unable to void (27) Weakness Family History Diabetes mellitus Gallbladder disease Hypertension Social History Smoking Status: Never Smoker Alcohol Use: none Drug Use: none Marital Status: single Housing Status: lives alone Occupation Status: unemployed Current/Historical Medications Scheduled Aspirin (Aspirin Ec), 81 MG PO DAILY Benztropine Mesylate (Benztropine Mesylate), 2 MG PO HS Bupropion (Wellbutrin Sr), 150 MG PO BID Buspirone Hcl (Buspirone Hcl), 30 MG PO BID Divalproex Sodium (Depakote Etended-Release), 2,000 MG PO AFTERNOON Divalproex Sodium (Depakote Etended-Release), 1,500 MG PO HS Furosemide (Lasix), 40 MG PO DAILY Levothyroxine Sodium (Levothyroxine Sodium), 175 MCG PO DAILY Lisinopril (Lisinopril), 10 MG PO DAILY Loratadine (Claritin), 10 MG PO DAILY Loxapine Succinate (Loxapine), 100 MG PO HS Montelukast Sodium (Singulair), 10 MG PO HS Omeprazole (Prilosec), 20 MG PO DAILY Polyethylene Glycol 3350 (Miralax), 17 GM PO BID Potassium Ext Rel (Klor-Con), 20 MEQ PO BID Pravastatin Sodium (Pravachol), 20 MG PO HS Prednisone (Prednisone), 40 MG PO HS Ranitidine (Zantac), 150 MG PO BID Sennosides-Docusate Sodium (Senna Plus), 1 TAB PO DAILY Ziprasidone Hcl (Geodon), 160 MG PO HS Scheduled PRN Clonazepam (Klonopin), 1 MG PO TID PRN for Anxiety Naproxen (Naprosyn), 500 MG PO UD PRN for Pain Tramadol HCl (Tramadol HCl), 50-100 MG PO Q4 PRN for Pain Allergies Coded Allergies: No Known Allergies (Verified , 06/15/17) Physical Exam Vital Signs Date Time Temp Pulse Resp B/P (MAP) Pulse Ox O2 Delivery O2 Flow Rate FiO2 06/15/17 14:51 86 18 154/95 99 Room Air 06/15/17 06:01 140/99 06/15/17 05:26 78 159/113 06/15/17 04:44 78 18 159/113 98 Room Air 06/15/17 02:46 82 18 173/110 99 Room Air 06/14/17 22:21 36.8 85 16 171/101 98 Room Air Physical Exam HEENT: Head - normocephalic and atraumatic Pupils are equal, round, and reactive to light. Extraocular eye muscles are intact, and sclera are anicteric. Nose - moist nasal mucosa without discharge. Mouth - moist buccal mucosa. Oropharynx is nonerythematous and there is no tonsillar exudate or edema noted. Neck: Supple; no JVD, nuchal rigidity, cervical lymphadenopathy. Heart: Regular rate and rhythm. There is a normal S1 and S2 with no murmurs, clicks, or gallops appreciated. Lungs: Clear to auscultation bilaterally with no wheezes, rales, or rhonchi. Abdomen: Soft, completely nontender, nondistended, with good bowel sounds. There are no palpable pulsatile masses or hepatosplenomegaly. There is no guarding, rigidity, or rebound noted. Extremities: No evidence of cyanosis or clubbing. Significant lymphedema of lower extremities. There are easily palpable peripheral pulses. Skin: warm and dry with good turgor and no rashes. PSYCH: Hyperverbal, significantly paranoid with a tangential thought process. Medical Decision & Procedures Laboratory Results 06/14/17 23:56 06/15/17 09:23 Test 06/14/17 23:56 06/15/17 00:00 06/15/17 09:23 Red Blood Count 4.96 M/uL (4.7-6.1) Mean Corpuscular Volume 87.7 fL (80-100) Mean Corpuscular Hemoglobin 30.4 pg (25-34) Mean Corpuscular Hemoglobin Concent 34.7 g/dl (32-36) RDW Standard Deviation 43.4 fL (36.4-46.3) RDW Coefficient of Variation 13.7 % (11.5-14.5) Mean Platelet Volume 9.2 fL (7.4-10.4) Total Bilirubin 0.5 mg/dl (0.2-1) Direct Bilirubin < 0.1 mg/dl (0-0.2) Aspartate Amino Transf (AST/SGOT) 20 U/L (15-37) Alanine Aminotransferase (ALT/SGPT) 21 U/L (12-78) Alkaline Phosphatase 85 U/L (45-117) Total Protein 7.2 gm/dl (6.4-8.2) Thyroid Stimulating Hormone (TSH) 3.360 uIu/ml (0.300-4.500) Salicylates Level < 1.7 mg/dl (2.8-20) Acetaminophen Level < 2 ug/ml (10-30) Ethyl Alcohol mg/dL < 3.0 mg/dl (0-3) Urine Color YELLOW Urine Appearance CLOUDY (CLEAR) Urine pH >= 9.0 (4.5-7.5) Urine Specific [place] 1.006 (1.000-1.030) Urine Protein NEG (NEG) Urine Glucose (UA) NEG (NEG) Urine Ketones NEG (NEG) Urine Occult Blood NEG (NEG) Urine Nitrite NEG (NEG) Urine Bilirubin NEG (NEG) Urine Urobilinogen NEG (NEG) Urine Leukocyte Esterase LARGE (NEG) Urine WBC (Auto) >30 /hpf (0-5) Urine RBC (Auto) 0-4 /hpf (0-4) Urine Hyaline Casts (Auto) 1-5 /lpf (0-5) Urine Epithelial Cells (Auto) 0-5 /lpf (0-5) Urine Bacteria (Auto) NEG (NEG) Urine Opiates Screen NEG (NEG) Urine Methadone, Qualitative NEG (NEG) Urine Barbiturates NEG (NEG) Urine Phencyclidine (PCP) Level NEG (NEG) Ur Amphetamine/Methamphetamine NEG (NEG) MDMA (Ecstasy) Screen NEG (NEG) Urine Benzodiazepines Screen NEG (NEG) Urine Cocaine Metabolite NEG (NEG) Urine Marijuana (THC) NEG (NEG) Anion Gap 9.0 mmol/L (3-11) Est Creatinine Clear Calc Drug Dose 72.5 ml/min Estimated GFR () 61.7 Estimated GFR (Non- 53.2 BUN/Creatinine Ratio 7.6 (10-20) Calcium Level 9.1 mg/dl (8.5-10.1) Phosphorus Level 2.4 mg/dl (2.5-4.9) Albumin 3.7 gm/dl (3.4-5.0) Valproic Acid (Depakene) Level 86 mcg/ml (50-100) Laboratory results per my review. Medications Administered Medications (Trade) Dose Ordered Sig/Daniel Route Start Time Stop Time Status Last Admin Dose Admin Sodium Chloride 500 ml @ 999 mls/hr Q31M STAT IV 06/15/17 01:01 06/15/17 01:31 DC 06/15/17 01:01 999 MLS/HR Sodium Chloride 1,000 ml @ 200 mls/hr Q5H ONCE IV 06/15/17 01:45 06/15/17 07:12 DC 06/15/17 01:45 200 MLS/HR Ciprofloxacin (Cipro Tab) 500 mg NOW STAT PO 06/15/17 01:47 06/15/17 02:02 DC 06/15/17 02:12 500 MG Metoprolol Tartrate (Lopressor Iv) 5 mg NOW STAT IV 06/15/17 05:26 06/15/17 05:27 DC 06/15/17 05:26 5 MG Senna (Senokot Tab) 8.6 mg QAM PO 06/15/17 09:00 06/15/17 17:02 DC 06/15/17 08:44 8.6 MG Ranitidine HCl (zANTac TAB) 150 mg BID PO 06/15/17 09:00 06/15/17 17:02 DC 06/15/17 09:09 150 MG Potassium Chloride (Klor-Con Tab) 20 meq BID PO 06/15/17 09:00 06/15/17 17:02 DC 06/15/17 08:50 20 MEQ Polyethylene (Miralax Powder Packet) 17 gm BID PO 06/15/17 09:00 06/15/17 17:03 DC 06/15/17 09:00 17 GM Famotidine (Pepcid Tab) 20 mg QAM PO 06/15/17 09:00 06/15/17 17:03 DC 06/15/17 09:08 20 MG Loratadine (Claritin Tab) 10 mg QAM PO 06/15/17 09:00 06/15/17 17:03 DC 06/15/17 09:07 10 MG Lisinopril (Zestril Tab) 10 mg QAM PO 06/15/17 09:00 06/15/17 17:03 DC 06/15/17 08:49 10 MG Levothyroxine Sodium (Synthroid Tab) 175 mcg DAILY PO 06/15/17 09:00 06/15/17 15:01 DC 06/15/17 08:49 175 MCG Furosemide (Lasix Tab) 40 mg QAM PO 06/15/17 09:00 06/15/17 17:03 DC 06/15/17 09:08 40 MG Clonazepam (Klonopin Tab) 1 mg TID PRN PO 06/15/17 07:45 06/15/17 17:03 DC 06/15/17 08:44 1 MG Buspirone HCl (BusPAR TAB) 30 mg BID PO 06/15/17 09:00 06/15/17 17:03 DC 06/15/17 08:51 30 MG Bupropion HCl (Wellbutrin-Xl Tab) 150 mg BID PO 06/15/17 09:00 06/15/17 17:03 DC 06/15/17 08:42 150 MG Aspirin (Aspirin Chew) 81 mg DAILY PO 06/15/17 09:00 06/15/17 17:04 DC 06/15/17 09:06 81 MG Divalproex Sodium (Depakote Extended Rel Tab) 2,000 mg TODAY@ PO 06/15/17 13:00 06/15/17 17:04 DC 06/15/17 13:10 2,000 MG Ciprofloxacin (Cipro Tab) 500 mg BID PO 06/15/17 09:00 06/15/17 17:04 DC 06/15/17 09:07 500 MG Haloperidol (Haldol Tab) 5 mg NOW STAT PO 06/15/17 09:00 06/15/17 09:02 DC 06/15/17 09:17 5 MG Lorazepam (Ativan Tab) 1 mg NOW STAT PO 06/15/17 09:00 06/15/17 09:02 DC 06/15/17 09:17 1 MG Haloperidol (Haldol Tab) 5 mg NOW STAT PO 06/15/17 10:13 06/15/17 10:15 DC 06/15/17 10:41 5 MG Lorazepam (Ativan Tab) 1 mg NOW STAT PO 06/15/17 10:13 06/15/17 10:15 DC 06/15/17 10:40 1 MG Hydroxyzine HCl (Vistaril Tab) 50 mg NOW STAT PO 06/15/17 11:23 06/15/17 11:24 DC 06/15/17 11:36 50 MG Haloperidol (Haldol Tab) 5 mg NOW STAT PO 06/15/17 12:04 06/15/17 12:06 DC 06/15/17 12:42 5 MG Lorazepam (Ativan Tab) 1 mg NOW STAT SL 06/15/17 12:04 06/15/17 12:06 DC 06/15/17 12:41 1 MG Procedure Sodium Chloride 500 ml @ 999 mls/hr IV, Sodium Chloride 1000 ml @ 200 mls/hr IV and Lopressor IV 5mg IV. ED Course 2308: Past medical records reviewed. The patient was evaluated in room A7. A complete history and physical exam was performed. labs were drawn as above. 0050: The patient was noted to be hyponatremic. I consulted Dr. Le. 0101: Sodium Chloride 500 ml @ 999 mls/hr IV. 0105: Patient adds that students have been looking into his windows and taking videos of him masturbating. 0145: Sodium Chloride 1000 ml @ 200 mls/hr IV. 0245: Dr. Le saw the patient and is going to repeat his sodium lab results. 0445: Patient's rechecked sodium level was 132. He feels that he is medically cleared. Staff from [facility] evaluated the patient and thought his blood pressure was too high for him to be transferred. 0526: The patient's diastolic blood pressure was slightly elevated. Lopressor IV 5mg IV 0604: Staff from [facility] does not believe that the patient has the capacity to sign himself in voluntarily. She believes that he is hallucinating at this time. I will sign the 302 paperwork. 0745: Patient was signed out to Dr. Turner at change of shifts. Medical Decision The patient is a 57 year old male who presents to the ED with waxing and waning mental state. Differential diagnosis includes suicidal ideation, thought disorder, and acute paranoia. Lab results show normal white count, normal H&H, original sodium = 129, repeat sodium = 132, creatinine = 1.4, repeat creatinine = 1.3, glucose = 106, tox screen negative, and negative for alcohol Tylenol and Aspirin. This is a 57-year-old male who has a history of schizoaffective disorder and is currently not taking his medications. He presents to the emergency department significant acute paranoia. He apparently made some suicidal statements to the mobile roundhouse worker. He was brought here for evaluation. There was a 302 petitioning statement with him. Initially, the patient was going to sign himself in voluntarily but then decided not to. The 302 paperwork was signed. The patient was cooperative throughout his stay here in the emergency department although he was quite manic. The case was signed out to Dr. Wallace at change of shift. He will order the patient's daily medications and arrange for final disposition. Medication Reconcilliation Current Medication List: was personally reviewed by me Blood Pressure Screening Patient's blood pressure: Elevated blood pressure Blood pressure disposition: Elevated BP felt to be situational Impression Primary Impression: Hyponatremia Additional Impression: Acute paranoia Scribe Attestation The scribe's documentation has been prepared under my direction and personally reviewed by me in its entirety. I confirm that the note above accurately reflects all work, treatment, procedures, and medical decision making performed by me. Departure Information Dispostion Still a Patient Referrals Pro,Yohannes Beyer M.D. (PCP) Forms HOME CARE DOCUMENTATION FORM, IMPORTANT VISIT INFORMATION Patient Instructions My [facility] Health Problem Qualifiers
[2017-06-15 00:30] LABS: HEMATOCRIT 43.5 % (42-52); HEMOGLOBIN 15.1 g/dL (14.0-18.0); MEAN CELL VOLUME 87.7 fL (80-100); MEAN CORPUSCULAR HEMOGLOBIN 30.4 pg (25-34); MEAN CORPUSCULAR HGB CONC 34.7 g/dl (32-36); MEAN PLATELET VOLUME 9.2 fL (7.4-10.4); PLATELET COUNT 246 K/uL (130-400); RED CELL DISTRIBUTION WIDTH CV 13.7 % (11.5-14.5); RED CELL DISTRIBUTION WIDTH SD 43.4 fL (36.4-46.3); WHITE BLOOD COUNT 8.07 K/uL (4.8-10.8)
[2017-06-15 00:49] LABS: ALBUMIN 3.6 gm/dl (3.4-5.0); ALT/SGPT 21 U/L (12-78); AST/SGOT 20 U/L (15-37); BLOOD UREA NITROGEN 14 mg/dl (7-18); CARBON DIOXIDE 24 mmol/L (21-32); CREATININE 1.41 mg/dl (0.60-1.40); GLUCOSE 106 mg/dl (70-99); POTASSIUM 3.8 mmol/L (3.5-5.1); SODIUM 129 mmol/L (136-145)
[2017-06-15 01:00] LABS: ALKALINE PHOSPHATASE 85 U/L (45-117); TOTAL PROTEIN 7.2 gm/dl (6.4-8.2)
[2017-06-15] MEDS ORDERED: SODIUM CHLORIDE 0.9% 500ML 500 ML IV STA (01:01)
[2017-06-15] MEDS ORDERED: SODIUM CHLORIDE 0.9% 1000ML 1,000 ML IV ONE (01:45)
[2017-06-15] MEDS ORDERED: CIPROFLOXACIN 500 MG TAB PO STA (01:47)
--- NOTE | 2017-06-15 02:24 | Medical Consult ---
Consultation Date of Consultation: Jun 15, 2017. Attending Physician: History of Present Illness 57 y/o M Hx bipolar disease, DM II, chronic lymphedema, chronic hyponatremia. The pt was sent to the hospital as he is exhibiting paranoia and additionally was reported to have voiced that he was going to kill himself. The pt states that he was joking when he said this and that if he wanted to kill himself he would not have told anyone. It is also reported that he was complaining that when he was out grocery shopping, people were continuously taking photos of him for no particular reason. Additionally he had stated to a visiting nurse that the residents of his apartment building were conspiring against him in some manner. When EMS arrived at his residence, he did not wish to proceed to the hospital and is requesting to be sent home. Labs were obtained in the ER to evaluate for a medical etiology for his current behavioral disturbances. It is noted that he is hyponatrmeic, although not far off his baseline, Additionally , he may have a mild UTI. The pt denies fevers, lightheadedness, CP, SOB, N/V, diarrhea or dysuria. Past Medical/Surgical History 1) Bipolar disease with psychosis and paranoia 2) Chronic lower extremity lymphedema - receives home treatment for this on Tuesdays 3) DM II - shaffer has had repeated hypoglycemic episodes and manages this without meds as a result 4) Hypothyroidism 5) GERD 6) Hyponatremia - previous labs indicate a range of 125-132 Family History Diabetes mellitus Gallbladder disease Hypertension Social History HAs lived in the same apartment building for 20 years. He has home health visits and is provided with transportation as needed. He has mobility issues due to lymphedema and prior knee surgery. Smoking Status: Never Smoker Drug Use: none Marital Status: single Housing Status: lives alone Occupation Status: unemployed Allergies Coded Allergies: No Known Allergies (Verified , 06/15/17) Current Inpatient Medications Current Inpatient Medications Medications (Trade) Dose Ordered Sig/Daniel Route Start Time Stop Time Status Last Admin Dose Admin Sodium Chloride 1,000 ml @ 200 mls/hr Q5H IV 06/15/17 01:45 07/15/17 01:44 UNV Review of Systems The pt cannot currently be relied upon for an accurate ROS - denies all symptoms and requesting DC Physical Exam Date Time Temp Pulse Resp B/P (MAP) Pulse Ox O2 Delivery O2 Flow Rate FiO2 06/14/17 22:21 36.8 85 16 171/101 98 Room Air Aggressively paranoid, overweight, middle-aged male in no physical distress - pressured speech is apparent General Appearance: WD/WN, no apparent distress Head: normocephalic Eyes: normal inspection ENT: normal ENT inspection, pharynx normal Neck: supple, no JVD Respiratory/Chest: chest non-tender, lungs clear Cardiovascular: regular rate, rhythm, no gallop Abdomen/GI: normal bowel sounds, non tender, soft Back: normal inspection, no CVA tenderness, no muscle spasm Extremities/Musculoskelatal: no calf tenderness, + pedal edema (Impressive BL edema - chronic) Neurologic/Psych: dispatcher service or work II-XII nml as tested, no motor/sensory deficits, alert Skin: + pertinent finding (Chronic LE skin changes related to edema) Laboratory Results Last 24 Hours Test 06/14/17 23:56 06/15/17 00:00 White Blood Count 8.07 K/uL Red Blood Count 4.96 M/uL Hemoglobin 15.1 g/dL Hematocrit 43.5 % Mean Corpuscular Volume 87.7 fL Mean Corpuscular Hemoglobin 30.4 pg Mean Corpuscular Hemoglobin Concent 34.7 g/dl RDW Standard Deviation 43.4 fL RDW Coefficient of Variation 13.7 % Platelet Count 246 K/uL Mean Platelet Volume 9.2 fL Sodium Level 129 mmol/L Potassium Level 3.8 mmol/L Chloride Level 94 mmol/L Carbon Dioxide Level 24 mmol/L Anion Gap 11.0 mmol/L Blood Urea Nitrogen 14 mg/dl Creatinine 1.41 mg/dl Est Creatinine Clear Calc Drug Dose 73.5 ml/min Estimated GFR () 62.7 Estimated GFR (Non- 54.1 BUN/Creatinine Ratio 10.0 Random Glucose 106 mg/dl Calcium Level 9.0 mg/dl Total Bilirubin 0.5 mg/dl Direct Bilirubin < 0.1 mg/dl Aspartate Amino Transf (AST/SGOT) 20 U/L Alanine Aminotransferase (ALT/SGPT) 21 U/L Alkaline Phosphatase 85 U/L Total Protein 7.2 gm/dl Albumin 3.6 gm/dl Thyroid Stimulating Hormone (TSH) 3.360 uIu/ml Salicylates Level < 1.7 mg/dl Acetaminophen Level < 2 ug/ml Ethyl Alcohol mg/dL < 3.0 mg/dl Urine Color YELLOW Urine Appearance CLOUDY Urine pH >= 9.0 Urine Specific [place] 1.006 Urine Protein NEG Urine Glucose (UA) NEG Urine Ketones NEG Urine Occult Blood NEG Urine Nitrite NEG Urine Bilirubin NEG Urine Urobilinogen NEG Urine Leukocyte Esterase LARGE Urine WBC (Auto) >30 /hpf Urine RBC (Auto) 0-4 /hpf Urine Hyaline Casts (Auto) 1-5 /lpf Urine Epithelial Cells (Auto) 0-5 /lpf Urine Bacteria (Auto) NEG Urine Opiates Screen NEG Urine Methadone, Qualitative NEG Urine Barbiturates NEG Urine Phencyclidine (PCP) Level NEG Ur Amphetamine/Methamphetamine NEG MDMA (Ecstasy) Screen NEG Urine Benzodiazepines Screen NEG Urine Cocaine Metabolite NEG Urine Marijuana (THC) NEG Assessment & Plan 57 y/o M Hx bipolar disease, DM II, chronic lymphedema, chronic hyponatremia. The pt was sent to the hospital as he is exhibiting paranoia and additionally was reported to have voiced that he was going to kill himself. The pt states that he was joking when he said this and that if he wanted to kill himself he would not have told anyone. It is also reported that he was complaining that when he was out grocery shopping, people were continuously taking photos of him for no particular reason. Additionally he had stated to a visiting nurse that the residents of his apartment building were conspiring against him in some manner. When EMS arrived at his residence, he did not wish to proceed to the hospital and is requesting to be sent home. Labs were obtained in the ER to evaluate for a medical etiology for his current behavioral disturbances. It is noted that he is hyponatremic, although not far off his baseline. Additionally , he may have a mild UTI and creatinine is slightly above baseline. The pt denies fevers, lightheadedness, CP, SOB, N/V, diarrhea or dysuria. 1) Hyponatremia - mild creat elevation - numbers are close to baseline - he does take several psychoactive meds which may induce SIADH and also takes daily Lasix for edema - the pt will receive a fluid bolus and we will recheck his BMP. If he is trending toward correction, we believe he would be better served under psychiatric care. 2) UTI - started on Cipro - cultures can be followed - there is no evidence of upper tract disease. 3) Bipolar/psychosis - the pt is not safe to return home at present, and as mentioned above, be admitted to psychiatry 4) DM II - diet-controlled 5) lymphedema - has follow-up care - we would ski[ Lasix for a day due to his Na and creat - cont pressure stocking and elevate legs when possible. Total time for this consult including review of labs, meds, records - discussion with pt and treatment - 36 min
[2017-06-15 03:28] LABS: CALCIUM 8.6 mg/dl (8.5-10.1); CREATININE 1.32 mg/dl (0.60-1.40); POTASSIUM 3.7 mmol/L (3.5-5.1)
[2017-06-15] MEDS ORDERED: METOPROLOL TARTRATE 1 MG/ML VIAL IV STA (05:26)
[2017-06-15] MEDS ORDERED: NAPROXEN 250 MG TAB PO PRN ×2 (07:45→16:30)
[2017-06-15] MEDS ORDERED: TRAMADOL HCL 50 MG TAB PO PRN ×2 (07:45→16:30)
[2017-06-15] MEDS ORDERED: CLONAZEPAM 1 MG TAB PO PRN (07:45)
--- NOTE | 2017-06-15 08:29 | EMERGENCY ROOM VISIT NOTE ---
ED Visit Note First contact with patient: 08:28 Patient signed out to me at change shift. History and physical verified by me. Patient was evaluated by medicine service in the middle the night and was felt to be stable for psychiatric admission. The patient has a large amount of outpatient medications which are ordered. He will be placed on Cipro for a urinary tract infection. Patient is here under a 302 warrant. On my exam of this patient he appears acutely manic. As he hasnt slept in two days, Im going to give him Haldol and Ativan to better get his blair under control. In addition the patient tells me his depakote was stopped two- three weeks ago and I suspect this maybe why he is so manic. However his depakote level was found to be therapeutic this morning. On my exam he is rambling with severe tangental thinking. In the emergency department he received his normal home meds. As the patient appears manic he was given 1 of Ativan and 5 of Haldol/ hour x2. He was then given Cogentin. He was then given an additional dose of Haldol and Ativan at noon. He was then given his depakote at 1300. At 1400 He was found to be resting comfortably. [facility] is conducting his bed search and the patient will be signed out to Dr Quintana at change of shift.
[2017-06-15] MEDS ORDERED: ASPIRIN 81 MG CHEW PO SCH (09:00)
[2017-06-15] MEDS ORDERED: POTASSIUM CHLORIDE 20 MEQ TABCR PO SCH (09:00)
[2017-06-15] MEDS ORDERED: SENNA 8.6 MG TAB PO SCH (09:00)
[2017-06-15] MEDS ORDERED: FAMOTIDINE 20 MG TAB PO SCH (09:00)
[2017-06-15] MEDS ORDERED: LORATADINE 10 MG TAB PO SCH (09:00)
[2017-06-15] MEDS ORDERED: HALOPERIDOL 5 MG TAB PO STA ×3 (09:00→12:04)
[2017-06-15] MEDS ORDERED: LEVOTHYROXINE 100 MCG TAB PO SCH (09:00)
[2017-06-15] MEDS ORDERED: BusPIRone 15 MG TAB PO SCH (09:00)
[2017-06-15] MEDS ORDERED: LISINOPRIL 10 MG TAB PO SCH (09:00)
[2017-06-15] MEDS ORDERED: LORAZEPAM 1 MG TAB PO STA ×2 (09:00→10:13)
[2017-06-15] MEDS ORDERED: POLYETHYLENE (MIRALAX) 17 GM PACK PO SCH (09:00)
[2017-06-15] MEDS ORDERED: BuPROPion XL 150 MG TABCR PO SCH (09:00)
[2017-06-15] MEDS ORDERED: RANITIDINE HCL 150 MG TAB PO SCH (09:00)
[2017-06-15] MEDS ORDERED: FUROSEMIDE 40 MG TAB PO SCH (09:00)
[2017-06-15] MEDS ORDERED: CIPROFLOXACIN 500 MG TAB PO SCH (09:00)
[2017-06-15 10:22] LABS: ALBUMIN 3.7 gm/dl (3.4-5.0); CALCIUM 9.1 mg/dl (8.5-10.1); CREATININE 1.43 mg/dl (0.60-1.40); PHOSPHORUS 2.4 mg/dl (2.5-4.9); POTASSIUM 4.2 mmol/L (3.5-5.1)
[2017-06-15] MEDS ORDERED: hydrOXYzine HCL 25 MG TAB PO STA (11:23)
[2017-06-15] MEDS ORDERED: LORAZEPAM 1 MG TAB SL STA (12:04)
[2017-06-15] MEDS ORDERED: DIVALPROEX 500 MG EXTENDED RELEASE TAB PO SCH ×2 (13:00→21:00)
[2017-06-15 14:51] VITALS: O2SAT 99
[2017-06-15] MEDS ORDERED: SODIUM CHLORIDE 0.65% NA SOLN 45 ML (OCEAN) PRN (16:30)
[2017-06-15] MEDS ORDERED: hydrOXYzine HCL 25 MG TAB PO PRN ×2 (16:30)
[2017-06-15] MEDS ORDERED: BISMUTH SUBSALICYLATE PER ML OMNICELL CHARGE PO PRN (16:30)
[2017-06-15] MEDS ORDERED: ACETAMINOPHEN 325 MG TAB PO PRN (16:30)
[2017-06-15] MEDS ORDERED: MAGNESIUM HYDROXIDE SUSP 30 ML UDC PO PRN (16:30)
[2017-06-15] MEDS ORDERED: ALUMINUM/MAGNESIUM SUSP 30 ML UDC PO PRN (16:30)
[2017-06-15] MEDS ORDERED: ZIPRASIDONE 80 MG CAP PO SCH ×3 (17:45→22:00)
[2017-06-15 17:50] VITALS: BP 154/95; PULSE 72; TEMP 36.8; Ht 180.3 cm; Wt 117.4 kg
[2017-06-15] MEDS ORDERED: NURSING VERBAL MED ORDER ONE (18:30)
[2017-06-15] MEDS ORDERED: PRAVASTATIN SOD 20 MG TAB PO SCH (21:00)
[2017-06-15] MEDS ORDERED: BENZTROPINE MESYLATE 1 MG TAB PO SCH (21:00)
[2017-06-15] MEDS ORDERED: MONTELUKAST SOD 10 MG TAB PO SCH (21:00)
[2017-06-15] MEDS: DIVALPROEX 500 MG EXTENDED RELEASE TAB PO SCH (21:12)
[2017-06-15] MEDS: BENZTROPINE MESYLATE 1 MG TAB PO SCH (21:12)
[2017-06-15] MEDS: POTASSIUM CHLORIDE 20 MEQ TABCR PO SCH (21:13)
[2017-06-15] MEDS: PRAVASTATIN SOD 20 MG TAB PO SCH (21:13)
[2017-06-15] MEDS: RANITIDINE HCL 150 MG TAB PO SCH (21:14)
[2017-06-15] MEDS: MONTELUKAST SOD 10 MG TAB PO SCH (21:14)
[2017-06-16] MEDS ORDERED: LEVOTHYROXINE 175 MCG TAB PO SCH (07:00)
[2017-06-16 07:07] VITALS: BP_SYST 123; BP_SYST 129; BP_DIAS 85; BP_DIAS 88; PULSE 81; PULSE 84; TEMP 36.5
[2017-06-16] MEDS: LEVOTHYROXINE 175 MCG TAB PO SCH (09:52)
[2017-06-16] MEDS: LORATADINE 10 MG TAB PO SCH (10:06)
[2017-06-16] MEDS: POTASSIUM CHLORIDE 20 MEQ TABCR PO SCH ×2 (10:07→21:28)
[2017-06-16] MEDS: ASPIRIN 81 MG ECTAB PO SCH (10:07)
[2017-06-16] MEDS: DOCUSATE SODIUM/SENNA 50/8.6MG TAB PO SCH (10:08)
[2017-06-16] MEDS: RANITIDINE HCL 150 MG TAB PO SCH ×2 (10:08→21:26)
[2017-06-16] MEDS: FUROSEMIDE 40 MG TAB PO SCH (10:08)
[2017-06-16] MEDS: LISINOPRIL 10 MG TAB PO SCH (10:09)
[2017-06-16] MEDS: DIVALPROEX 500 MG EXTENDED RELEASE TAB PO SCH ×2 (12:40→21:30)
--- NOTE | 2017-06-16 15:31 | Psychiatric History & Physical ---
History Date of Service Jun 16, 2017. Identifying Data Lam Wong is a 57-year-old male admitted on Jun 15, 2017 at 16:38 who currently lives alone in [place], [place] . Lam Wong was admitted on a 302 involuntary commitment. Patient is admitted from home. The patient was brought to the ED by the police. Information provided by the patient is considered to be reliable. Chief Complaint "I am here the woman misunderstood me when I said I was gonna kill myself". History of Present Illness Lam is a 57 yr old male with h/o "bipolar" and records of also schizophrenia ( probably schizoaffective bipolar type) disorder who exhibits irritability, grandiosity, some disorganization his thinking and paranoid thinking. He was brought to the ER under a 302 petition due to comments about killing himself that day or the next day. He reports that he made such comments but that he did not mean them but that he had also reached out to can help due to emotion al distress and that had watched a movie and calmed down and reached a state of serenity before being brought to the ER. He indicates that he will call the police on Saturday to have them discharge him by noon on Saturday with aiming to be home for his [facility] appt with the Lymphedema related nursing care appt he is scheduled to have then. He is invol. admitted on a 302 for his SI concerns and along with his other symptoms impacitng his presentation. He denied AH for the past number of years during this assessment with assessments yesterday indicating that he was having AH. He endorsed seeing some things come out of the TV perhaps in the past month but in the past few days. He reported that various people were watching him and taking photos of him with there smart phone camers, including at [place] and outside his window of his apartment. He denied any alcohol usage since Feb, 1984. He denied any substance usage or nicotine usage. He denied any h/o past suicidal behaviors or SIB or HI or aggressive behaviors. He denied having OCD symptoms or panic attacks. He indicated that he can get angry when dealing with hostile people and he felt that I was hostile at first but then indicated liking me as the interview progressed further, since I was allowing him time to answer questions. He did get defensive and irritated frequently during the interview process but always settled down quickly. He appears to have been taken off of wellbutrin sr by his outpt provider Dr. Tamayo although pt made a comment that wellbutrin sr was a good med for him. HE appears to be taking depakote ER 2000mg in afternoon and Depakote ER 1500mg hs but made comments about this med was stopped by Dr. Tamayo, but that he needs this med? He has been taking also taking buspar 30mg bid, Geodon at 160mg hs, loxapine 10mg hs, benztropine 2mg hs, klonopin 1mg up to tid prn with tendency to take 1-2 doses a day, Pt indicated that has seen a student therapist about 4 months ago. 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 He indicated that he sees Dr. Tamayo every few months with last appt one month ago and on a schedule that pt decides per pt. He reports that his last psychiatric admission was 10 years aog and indicated that was here, (commercial loan underwriter looked for records of this admission in the electronic chart but doid not locate it, finding only a psychiatric consult by Dr Joseph from a medical admission in that time frame. Pt attends 12 steps meetings every couple months or so, with having attended meetings frequently many years. Past Psychiatric History Current OP Treatment: psychiatrist, shoe caser Prior OP Treatment: psychiatrist, shoe caser Prior Psych Hospitalizations: [facility] Access to a Gun: No Suicide Attempts: No Past Medication Trials included wellbutrin sr, risperdal, seroquel, haldol, lithium prozac Past Medical/Surgical History History of Concussion/Seizure: No (but did have a fall a couple months ago with reported LOC ) (1) Knee pain (2) Constipation (3) Hyponatremia (4) Bilateral lower extremity edema (5) Benign hypertension (6) Asthma (7) Diabetes (8) Hypothyroidism (9) Schizoaffective disorder, bipolar type (10) Gastroesophageal reflux disease Allergies Allergies: Coded Allergies: No Known Allergies (Verified , 06/15/17) Home Medications Scheduled Aspirin (Aspirin Ec), 81 MG PO DAILY Benztropine Mesylate (Benztropine Mesylate), 2 MG PO HS Buspirone Hcl (Buspirone Hcl), 30 MG PO BID Divalproex Sodium (Depakote Etended-Release), 2,000 MG PO AFTERNOON Divalproex Sodium (Depakote Etended-Release), 1,500 MG PO HS Furosemide (Lasix), 40 MG PO DAILY Levothyroxine Sodium (Levothyroxine Sodium), 175 MCG PO DAILY Lisinopril (Lisinopril), 10 MG PO DAILY Loratadine (Claritin), 10 MG PO DAILY Loxapine Succinate (Loxapine), 100 MG PO HS Montelukast Sodium (Singulair), 10 MG PO HS Omeprazole (Prilosec), 20 MG PO DAILY Polyethylene Glycol 3350 (Miralax), 17 GM PO BID Potassium Ext Rel (Klor-Con), 20 MEQ PO BID Pravastatin Sodium (Pravachol), 20 MG PO HS Prednisone (Prednisone), 40 MG PO HS Ranitidine (Zantac), 150 MG PO BID Sennosides-Docusate Sodium (Senna Plus), 1 TAB PO DAILY Ziprasidone Hcl (Geodon), 160 MG PO HS Scheduled PRN Clonazepam (Klonopin), 1 MG PO TID PRN for Anxiety Naproxen (Naprosyn), 500 MG PO UD PRN for Pain Tramadol HCl (Tramadol HCl), 50-100 MG PO Q4 PRN for Pain Family History Diabetes mellitus Gallbladder disease Hypertension History of Suicide: No History of Substance Abuse: No Psychiatric History: Yes (but would not elaborate or provided any detials about ) Alcohol Use Alcohol Use In Past 12 Months: No (denied any alcohol usage since Mar 15, 1984 ) AUDIT Total Score: 2 Smoking Use Smoking Status: Never Smoker Substance History denied current or past h/o substance usage including misuse or OTC or Rx meds Personal History Lives in: [facility] Childhood: [place] Education: graduated college Relationship History: never Children: denied Legal History: none Psychological Trauma History: Denies Hx Traumatic Event Review of Systems Constitutional: denies no symptoms reported, denies see HPI, denies chills, denies diaphoresis, denies fever, denies malaise, denies weakness, other (fall risk ) ENT: denies: no symptoms reported, see HPI, ear pain, ear discharge, loss of hearing, tinnitus, nasal pain, nasal congestion, rhinorrhea, epistaxis, sore throat, stidor, throat swelling, mouth pain, mouth swelling, dental pain, gum swelling, other Cardiovascular: denies: no symptoms reported, see HPI, chest pain, chest tightness, chest pressure, diaphoresis, palpitations, syncope, other Respiratory: reports: other (h/o asthma) Gastrointestinal: other (h/o reflux) Genitourinary - Male: reports: other (UTI and voided in bed last night ) Musculoskeletal: other (knee pain andepxecting knee replcement surgery in late June ) Endocrine: other (hypothyroidism ) Hematologic / Lymphatic: other (significiat edema b/l LE ) Examination Physical Examination A physical exam was performed in the ER prior to admission to the unit by Dr. Ross and Dr. Mcdowell. I accept those physicals as correct/medical clearance for the inpatient physical exam. Vital Signs Vital Signs Past 12 Hours Date Time Temp Pulse Resp B/P (MAP) Pulse Ox O2 Delivery O2 Flow Rate FiO2 06/16/17 07:07 36.5 81 16 129/88 84 123/85 Laboratory Results Test 06/14/17 23:56 06/15/17 00:00 06/15/17 02:49 06/15/17 09:23 White Blood Count 8.07 Red Blood Count 4.96 Hemoglobin 15.1 Hematocrit 43.5 Mean Corpuscular Volume 87.7 Mean Corpuscular Hemoglobin 30.4 Mean Corpuscular Hemoglobin Concent 34.7 RDW Standard Deviation 43.4 RDW Coefficient of Variation 13.7 Platelet Count 246 Mean Platelet Volume 9.2 Total Bilirubin 0.5 Direct Bilirubin < 0.1 Aspartate Amino Transferase (AST) 20 Alanine Aminotransferase (ALT) 21 Alkaline Phosphatase 85 Total Protein 7.2 Albumin 3.6 3.7 Thyroid Stimulating Hormone (TSH) 3.360 Salicylates Level < 1.7 Acetaminophen Level < 2 Ethyl Alcohol mg/dL < 3.0 Urine Color YELLOW Urine Appearance CLOUDY Urine pH >= 9.0 Urine Specific [place] 1.006 Urine Protein NEG Urine Glucose (UA) NEG Urine Ketones NEG Urine Occult Blood NEG Urine Nitrite NEG Urine Bilirubin NEG Urine Urobilinogen NEG Urine Leukocyte Esterase LARGE Urine WBC (Auto) >30 Urine RBC (Auto) 0-4 Urine Hyaline Casts (Auto) 1-5 Urine Epithelial Cells (Auto) 0-5 Urine Bacteria (Auto) NEG Urine Opiates Screen NEG Urine Methadone, Qualitative NEG Urine Barbiturates NEG Urine Phencyclidine (PCP) Level NEG Ur Amphetamine/Methamphetamine NEG MDMA (Ecstasy) Screen NEG Urine Benzodiazepines Screen NEG Urine Cocaine Metabolite NEG Urine Marijuana (THC) NEG Sodium Level 132 133 Potassium Level 3.7 4.2 Chloride Level 98 98 Carbon Dioxide Level 26 26 Anion Gap 8.0 9.0 Blood Urea Nitrogen 13 11 Creatinine 1.32 1.43 Est Creatinine Clear Calc Drug Dose 78.5 72.5 Estimated GFR () 68.0 61.7 Estimated GFR (Non- 58.6 53.2 BUN/Creatinine Ratio 9.7 7.6 Random Glucose 84 90 Calcium Level 8.6 9.1 Phosphorus Level 2.4 Valproic Acid Level 86 Mental Examination During interview pt is: alert and oriented, cooperative Appearance: other (wearing scrub pants and out of darkness t shirt ) Eye contact is: good Motor behavior is: other (waling slowly with medical walker, wearing denise bandages on LE/feet given degree of edema) Speech: normal in rate, rhythm & volume Affect: angry (about being admitted) Mood is: irritable, angry Thought process: clear, coherent, tangential Thought content: paranoid Suicidal thought are: denied (at time of this assessment, appears to be miniziming his previous sucidal thoughts ), Plan: denied, Intent: denied Homicidal thoughts are: denied Hallucinations: denies auditory (at time of assessment), denies visual Cognition: memory grossly intact Intelligence estimated to be: average Insight: impaired Judgement: impaired Impression / Recommendations Impression Schizoaffective bipolar type - 302 admission for SI with psychotic symptoms present, Inventory Assets Strengths: makes friends easily, has outpatient provider, appears to be taking his medications, has shoe caser Needs: stabilization of psychiatric symptoms, pt endorsed need for improving socialization Risk Factors Assessment Male: Yes : Yes /single/: Yes Access to guns: No Health problems: Yes Mental Health Diagnoses: Yes Previous attempt: No Previous psychiatric stay: Yes Hopelessness: No Smoker: No Protective Factors Assessment Employed: No Recommendations (1) Schizoaffective disorder, bipolar type q15 minutes checks continue current outpt psychiatric medications of depakote er, loxapine, cogentin, klonopin prn, buspar, Geodon, with only change to his psychiatric outpt meds at this time being adjusting Geodon 160mg dose to be given at dinner to help increase absorption and thus aim to increase serum level obtain then when takes at bedtime with pt consent to do so. this might further alleivate pt 's paranoia and irritability appears pt has been off wellbutrin sr with pt indicating that Dr. Tamayo stopped this med and will not restart this med at this time RENU sent to obtain records from Dr. Tamayo and will attempt to coordinate care with Dr. Tamayo and shoe caser and arrange aftercare. clarifying SI concerns and psychotic symptoms and pt's functioning and safety concerns and assessing for need for 303 hearing individual and group therapy while on the unit pt has been sober from alcohol for 33 years per pt of note pt on tramadol prn [employer] Rx was checked at time of admission by this commercial loan underwriter with main concern being pt also on tramadol and his polypharmacy (2) Lymphedema of both lower extremities denise bandages, on lasix but holding dose on 06/16 given hyponatremia (3) Hyponatremia hold lasix for 06/16, repeat lab on 06/17, monitor and if improving continue treatment plan, with adjustments as needed if Na not improving further (4) Benign hypertension continue outpt medication (5) Diabetes nl blood sugars in ER, h/o hypoglycemia at times in past, h/o metformin in past, managed by diet currently, qam accuchecks (6) Hypothyroidism continue outpt thyroid med (7) Gastroesophageal reflux disease continue outpt med CPT Code Initial Hospital Care: [id number]
[2017-06-16] MEDS: ZIPRASIDONE 80 MG CAP PO SCH (17:28)
[2017-06-16] MEDS: BusPIRone 15 MG TAB PO SCH (21:25)
[2017-06-16] MEDS: MONTELUKAST SOD 10 MG TAB PO SCH (21:26)
[2017-06-16] MEDS: PRAVASTATIN SOD 20 MG TAB PO SCH (21:27)
[2017-06-16] MEDS: BENZTROPINE MESYLATE 1 MG TAB PO SCH (21:29)
[2017-06-17 06:54] VITALS: BP_SYST 137; BP_DIAS 81; BP_DIAS 88; PULSE 88; PULSE 98; TEMP 36.9
[2017-06-17] MEDS: RANITIDINE HCL 150 MG TAB PO SCH ×2 (08:05→21:15)
[2017-06-17] MEDS: LEVOTHYROXINE 175 MCG TAB PO SCH (08:05)
[2017-06-17] MEDS: BusPIRone 15 MG TAB PO SCH ×2 (08:05→21:12)
[2017-06-17] MEDS: POTASSIUM CHLORIDE 20 MEQ TABCR PO SCH ×2 (08:06→21:12)
[2017-06-17] MEDS: ASPIRIN 81 MG ECTAB PO SCH (08:06)
[2017-06-17] MEDS: LISINOPRIL 10 MG TAB PO SCH (08:06)
[2017-06-17] MEDS: LORATADINE 10 MG TAB PO SCH (08:06)
[2017-06-17] MEDS: DOCUSATE SODIUM/SENNA 50/8.6MG TAB PO SCH (08:07)
[2017-06-17] MEDS ORDERED: POLYETHYLENE (MIRALAX) 17 GM PACK PO PRN (09:45)
--- NOTE | 2017-06-17 09:50 | Psychiatric Progress Notes ---
Progress Note Date of Service Jun 17, 2017. Interval History Lam Wong is a 57-year-old male admitted on Jun 15, 2017 at 16:38 who currently lives alone in [place], [place], has a history of schizophrenia and bipolar disorder per his report, presented to the emergency room with police, and was admitted on a 302 involuntary commitment due to suicidality. Chief Complaint "I participated in the only group possible". Subjective Patient was seen & assessed interval progress reviewed with Treatment Team. Staff report he has been disoriented, urinating on the floor, and has had multiple falls. He is refusing to sign releases for his sisters or involve them in his treatment. He has been focused on wanting to be discharged by tomorrow in order to meet with his physical therapist. On admission, he was continued on his outpatient medications, including Depakote, loxapine, buspirone , clonazepam when necessary, benztropine, and ziprasidone, which was moved to dinner. He was also continued on his home dose of tramadol, and furosemide was held due to hyponatremia. He has been refusing to have a family meeting, and said he did not like words such as "safety and stable... Those words are a lot of psycho-babble BS." Today, the patient was seen in his room. He talked about all of the various outpatient supports he had, saying he has multiple friends and support through AA, and does not need to be here, as he would call them if needed. He becomes very argumentative when it is suggested that he involves some of these supports in a family meeting, stating that he does not need to "prove it to you." He is vague when asked about his understanding of why he was hospitalized, stating "well the first day I was here I believe I belong, I was a little shaky, but I'm bipolar, have my highs and lows." He repeatedly states he doesn't need to be here anymore, and is unable to answer more detailed questions about what led to his admission. In reviewing the reports from [employer] details on his 302 petition, he admits that he was suicidal, but states he is no longer suicidal. He is not able to engage in a discussion of safety planning, repeatedly becoming argumentative and listing all the reasons why he doesn't need to follow treatment recommendations. He says that the treatment and groups here "don't pertain to me, I have friendships of 40 years, and in recovery AA going back decades." Reviewed with him the treatment recommendations, including recommendations to have a family meeting with his supports, and to confirm aftercare with Dr. Sesay. He continues to state he wants to leave tomorrow, and that he won't follow the treatment recommendations while he is here. He is irritable with orientation questions, stating "this is not necessary." Sleep Information Total Hours of Sleep: 6.00 Meal Information Percent of Breakfast Consumed: 100 Percent of Lunch Consumed: 100 Percent of Dinner Consumed: 100 Mental Status Exam During interview pt is: alert and oriented (x 10/10), cooperative Appearance: other (overweight, wearing scrub pants and out of darkness t shirt , same clothes since yesterday, ) Eye contact is: fair Motor behavior is: other (walking slowly with walker, wearing denise bandages on LE/feet with edema) Speech: normal in rate, rhythm & volume Affect: irritable, constricted Mood is: other ("I'm fine") Thought process: circumstantial, tangential Thought content: reality based without delusions Suicidal thought are: denied (at time of this assessment, but admits to sucidal thoughts on admission), Plan: denied, Intent: denied Homicidal thoughts are: denied Hallucinations: denies auditory, denies visual Cognition: memory grossly intact Intelligence estimated to be: below average Insight: impaired Judgement: impaired Summary of Past History Records from the [facility] psych clinic were reviewed. Patient sees Tereza Tamayo, PhD, JOHNNY, and is diagnosed with schizoaffective disorder bipolar type. He was last seen April 03, 2017, reported stable mood, but was dealing with knee pain with a knee replacement surgery scheduled in June. He denied paranoia and hallucinations, and felt his medications were working well. He was advised to return in 8 weeks for follow-up. No medication changes were made , and he was continued on ziprasidone 120 mg twice daily, Depakote ER 3500 mg daily, buspirone 30 mg twice daily, loxapine 100 mg nightly, bupropion SR 150 mg twice daily, and clonazepam 1 mg as needed. He was seen January 16, 2017 and reported stable symptoms, with improvement in irritability since resuming loxapine. He was seen December 19, 2016, reported improvement in anxiety and irritability, and had been given the wrong medication at the pharmacy, so had been taking escitalopram 10 mg daily for 3 weeks. At his appointment November 07, 2016, he reported he was not doing well, was in a lot of pain from his knees and feet, and endorsed irritability and paranoia about others. He said he had been feeling hopeless, and had decided that he would commit suicide in February , but was no longer feeling that way. His bupropion and loxapine were both increased. At his August 29, 2016 appointment he reported that he was having worsening knee pain and lymphedema, and said his PCP had told him loxapine may be responsible for low sodium, so decided to stop taking it. His initial intake from June 2015 was reviewed, and he had been in therapy at the clinic since 1995. Past records indicated a history of depressive episodes, manic episodes, auditory and visual hallucinations, and delusions of persecution, and he was diagnosed with schizoaffective disorder bipolar type, alcohol use disorder in remission, and caffeine use. Impression Schizoaffective bipolar type - 302 admission for SI with psychotic symptoms present, but is now minimizing both his suicidal statements and his psychotic symptoms, and is focused on being discharged as soon as possible. He does not believe he can benefit from treatment, and has been unwilling to engage in safety planning or a family meeting. We are attempting to get records from Dr. Tamayo at the [facility] psych clinic to confirm outpatient care, and have reinforced to him the importance of speaking with somebody who knows him and can provide collateral information about his recent mood and symptoms and assist him with support at the time of discharge. He continues to require inpatient treatment as no risk factors have been mitigated and he remains at risk for suicide if discharged prematurely. He is also having some medical issues, with hyponatremia, and is being treated for UTI with Cipro, which may have contributed to his AMS/psychotic symptoms on admission. Plan (1) Schizoaffective disorder, bipolar type q15 minutes checks continue current outpt psychiatric medications of depakote er, loxapine, cogentin, klonopin prn, buspar, Geodon, with only change to his psychiatric outpt meds at this time being adjusting Geodon 160mg dose to be given at dinner to help increase absorption and thus aim to increase serum level obtain then when takes at bedtime with pt consent to do so. this might further alleviate pt 's paranoia and irritability appears pt has been off wellbutrin sr with pt indicating that Dr. Tamayo stopped this med and will not restart this med at this time RENU sent to obtain records from Dr. Tamayo and will attempt to coordinate care with Dr. Tamayo and bilingual case manager and arrange aftercare. clarifying SI concerns and psychotic symptoms and pt's functioning and safety concerns and assessing for need for 303 hearing individual and group therapy while on the unit pt has been sober from alcohol for 33 years per pt of note pt on tramadol prn [facility] [employer] Rx was checked at time of admission by this freelance writer with main concern being pt also on tramadol and his polypharmacy 06/17 - last fasting labs on file were from 2015, so will order hemoglobin A1c and fasting lipid profile for tomorrow. Will also order a repeat BMP to follow hyponatremia, and a valproate trough level for tonight. - Request records from the [facility] psych clinic, Dr. Tamayo. - Social work to contact bilingual case manager to get collateral information and arrange a meeting, as he continues to refuse a family meeting with anyone else. - Continue to gather information toward the need for ongoing involuntary commitment, would like to get collateral information from family or friends, but patient is refusing to allow staff to speak with anyone. (2) UTI (urinary tract infection) Diagnosed with UTI in the ER, per hospitalist follow cultures, but no cultures - spoke with lab, who state a culture was never ordered. Will complete course of Cipro 500 mg daily 3 days, and he will need to follow-up with his PCP. (3) Lymphedema of both lower extremities denise bandages, on lasix but holding dose on 06/16 given hyponatremia (4) Hyponatremia hold lasix for 06/16, repeat lab on 06/17, monitor and if improving continue treatment plan, with adjustments as needed if Na not improving further. 06/17 - Order repeat BMP for tomorrow. Furosemide still being held. He will need follow-up with his PCP, Dr. Carrillo. (5) Benign hypertension continue outpt medication (6) Diabetes nl blood sugars in ER, h/o hypoglycemia at times in past, h/o metformin in past, managed by diet currently, qam accuchecks (7) Hypothyroidism continue outpt thyroid med . TSH normal. (8) Gastroesophageal reflux disease continue outpt med Discharge / Aftercare Planning Primary Care Physician: Name: [facility] Psychiatrist: Name: JOHNNY Ford, [facility] Appointment Notes: [address] [place] [id number] Therapist: Name: Josefina Pascual [facility] [employer] Operator Helper: Name: Kamryn PEARCE Visit Code E&M Code: 17306 Inventory Assets Strengths: makes friends easily, has outpatient provider, appears to be taking his medications, has bilingual case manager Needs: stabilization of psychiatric symptoms, pt endorsed need for improving socialization Risk Factors Assessment Male: Yes : Yes /single/: Yes Health problems: Yes Mental Health Diagnoses: Yes Previous attempt: No Previous psychiatric stay: Yes Hopelessness: No Smoker: No Protective Factors Assessment Employed: No Data Vital Signs Last 24 Hrs: Date Time Temp Pulse Resp B/P (MAP) Pulse Ox O2 Delivery O2 Flow Rate FiO2 06/17/17 06:54 36.9 88 16 137/81 98 137/88 Meds Administered Last 24 Hrs: Meds Administered (Past 24Hrs) Medications (Trade) Dose Ordered Sig/Daniel Route Start Time Stop Time Status Last Admin Dose Admin Divalproex Sodium (Depakote Extended Rel Tab) 2,000 mg TODAY@ PO 06/15/17 13:00 06/15/17 17:04 DC 06/15/17 13:10 2,000 MG Haloperidol (Haldol Tab) 5 mg NOW STAT PO 06/15/17 10:13 06/15/17 10:15 DC 06/15/17 10:41 5 MG Lorazepam (Ativan Tab) 1 mg NOW STAT PO 06/15/17 10:13 06/15/17 10:15 DC 06/15/17 10:40 1 MG Hydroxyzine HCl (Vistaril Tab) 50 mg NOW STAT PO 06/15/17 11:23 06/15/17 11:24 DC 06/15/17 11:36 50 MG Haloperidol (Haldol Tab) 5 mg NOW STAT PO 06/15/17 12:04 06/15/17 12:06 DC 06/15/17 12:42 5 MG Lorazepam (Ativan Tab) 1 mg NOW STAT SL 06/15/17 12:04 06/15/17 12:06 DC 06/15/17 12:41 1 MG Hydroxyzine HCl (Vistaril Tab) 50 mg HSZ PRN PO 06/15/17 16:30 07/15/17 16:29 06/16/17 00:38 50 MG Aspirin (Ecotrin Tab) 81 mg DAILY PO 06/16/17 09:00 07/16/17 08:59 06/17/17 08:06 81 MG Benztropine Mesylate (Cogentin Tab) 2 mg HS PO 06/15/17 21:00 07/15/17 20:59 06/16/17 21:29 2 MG Divalproex Sodium (Depakote Extended Rel Tab) 1,500 mg HS PO 06/15/17 21:00 07/15/17 20:59 06/16/17 21:30 1,500 MG Divalproex Sodium (Depakote Extended Rel Tab) 2,000 mg QDL PO 06/16/17 11:00 07/16/17 10:59 06/16/17 12:40 2,000 MG Furosemide (Lasix Tab) 40 mg DAILY PO 06/16/17 09:00 07/16/17 08:59 Future Hold 06/16/17 10:08 40 MG Levothyroxine Sodium (Synthroid Tab) 175 mcg DAILYBB PO 06/16/17 07:00 07/16/17 06:59 06/17/17 08:05 175 MCG Lisinopril (Zestril Tab) 10 mg DAILY PO 06/16/17 09:00 07/16/17 08:59 06/17/17 08:06 10 MG Loratadine (Claritin Tab) 10 mg DAILY PO 06/16/17 09:00 07/16/17 08:59 06/17/17 08:06 10 MG Montelukast Sodium (Singulair Tab) 10 mg HS PO 06/15/17 21:00 07/15/17 20:59 06/16/17 21:26 10 MG Potassium Chloride (Klor-Con Tab) 20 meq BID PO 06/15/17 21:00 07/15/17 20:59 06/17/17 08:06 20 MEQ Pravastatin Sodium (Pravachol Tab) 20 mg HS PO 06/15/17 21:00 3/19/18 20:59 06/16/17 21:27 20 MG Prednisone (PredniSONE TAB) 40 mg HS PO 06/15/17 21:00 07/15/17 20:59 06/16/17 21:27 40 MG Ranitidine HCl (zANTac TAB) 150 mg BID PO 06/15/17 21:00 07/15/17 20:59 06/17/17 08:05 150 MG Senna/Docusate Sodium (Senokot S Tab) 1 tab DAILY PO 06/16/17 09:00 07/16/17 08:59 06/17/17 08:07 1 TAB Ziprasidone (Geodon Cap) 160 mg HS PO 06/15/17 22:00 06/16/17 17:10 DC 06/15/17 21:13 160 MG Ziprasidone (Geodon Cap) 160 mg QDD PO 06/16/17 17:45 07/15/17 21:59 06/16/17 17:28 160 MG Buspirone HCl (BusPAR TAB) 30 mg BID PO 06/16/17 22:00 07/16/17 21:59 06/17/17 08:05 30 MG
[2017-06-17] MEDS ORDERED: CIPROFLOXACIN 500 MG TAB PO ONE (11:45)
[2017-06-17] MEDS: DIVALPROEX 500 MG EXTENDED RELEASE TAB PO SCH ×2 (13:13→21:17)
[2017-06-17] MEDS: ZIPRASIDONE 80 MG CAP PO SCH (18:07)
[2017-06-17] MEDS: PRAVASTATIN SOD 20 MG TAB PO SCH (21:14)
[2017-06-17] MEDS: BENZTROPINE MESYLATE 1 MG TAB PO SCH (21:16)
[2017-06-17] MEDS: MONTELUKAST SOD 10 MG TAB PO SCH (21:16)
[2017-06-17] MEDS: CLONAZEPAM 1 MG TAB PO PRN (22:05)
[2017-06-18 06:57] VITALS: BP_SYST 139; BP_SYST 142; BP_DIAS 90; BP_DIAS 94; PULSE 79; PULSE 81; TEMP 36.4
[2017-06-18] MEDS: LEVOTHYROXINE 175 MCG TAB PO SCH (08:32)
[2017-06-18] MEDS: BusPIRone 15 MG TAB PO SCH ×2 (08:32→21:11)
[2017-06-18] MEDS: LORATADINE 10 MG TAB PO SCH (08:33)
[2017-06-18] MEDS: DOCUSATE SODIUM/SENNA 50/8.6MG TAB PO SCH (08:33)
[2017-06-18] MEDS: POTASSIUM CHLORIDE 20 MEQ TABCR PO SCH ×2 (08:33→21:27)
[2017-06-18] MEDS: ASPIRIN 81 MG ECTAB PO SCH (08:33)
[2017-06-18] MEDS: RANITIDINE HCL 150 MG TAB PO SCH ×2 (08:34→21:14)
[2017-06-18] MEDS: LISINOPRIL 10 MG TAB PO SCH (08:34)
[2017-06-18 08:56] LABS: CALCIUM 9.1 mg/dl (8.5-10.1); CREATININE 1.13 mg/dl (0.60-1.40); POTASSIUM 5.3 mmol/L (3.5-5.1)
[2017-06-18] MEDS ORDERED: CIPROFLOXACIN 500 MG TAB PO SCH (09:00)
[2017-06-18 09:04] LABS: HEMOGLOBIN A1C 5.7 % (4.5-5.6)
[2017-06-18] MEDS ORDERED: WLLSR150 PO (12:07)
--- NOTE | 2017-06-18 12:15 | Psychiatric Progress Notes ---
Progress Note Date of Service Jun 18, 2017. Interval History Lam Wong is a 57-year-old male admitted on Jun 15, 2017 at 16:38 who currently lives alone in [place], [place], has a history of schizophrenia and bipolar disorder per his report, presented to the emergency room with police, and was admitted on a 302 involuntary commitment due to suicidality. Chief Complaint "Si, means yes in [place]ian". Subjective Patient was seen & assessed interval progress reviewed with Nursing. Staff report the patient has been attending some groups, but does not feel he should be here still has not wanted to go to them. He did agree to a meeting with his case liner, which has been scheduled for tomorrow. He has been pleasant in his interactions with staff, and taking medications as prescribed. Today, he was seen in his room, and reports that his mood is improved but admits that he is confused about what medications he takes at home. We reviewed them again, including bupropion SR, which was on his outpatient records but not his admission med rec. He states he does take this medication and thinks it is helpful. He also asked about his loxapine, and states he brought it in from home so should be able to take his home supply while here. Reviewed the results of his Depakote level, and he states that he was feeling somewhat confused earlier in his admission, but denies feeling confused, sedated, or experiencing tremors currently. He does have a mild tremor with outstretched hands, but states that this is long-standing and does not bother him. He denies suicidal thoughts, and states "when it comes to resources, no one has more resources in this town than me." He says his mood is "really good, really upbeat." Sleep Information Total Hours of Sleep: 5.00 Meal Information Percent of Breakfast Consumed: 100 Percent of Lunch Consumed: 100 Percent of Dinner Consumed: 100 Mental Status Exam During interview pt is: alert and oriented, cooperative Appearance: appropriately dressed, other (Overweight, wearing the same clothes) Eye contact is: fair Motor behavior is: other (walking slowly with walker, wearing denise bandages on LE/feet with edema) Speech: normal in rate, rhythm & volume Affect: euthymic Mood is: other ("Really great") Thought process: circumstantial, tangential Thought content: reality based without delusions Suicidal thought are: denied Homicidal thoughts are: denied Hallucinations: denies auditory, denies visual Cognition: memory grossly intact Intelligence estimated to be: average, below average Insight: impaired Judgement: impaired Summary of Past History Records from the [facility] psych clinic were reviewed. Patient sees Tereza Tamayo, PhD, JOHNNY, and is diagnosed with schizoaffective disorder bipolar type. He was last seen April 03, 2017, reported stable mood, but was dealing with knee pain with a knee replacement surgery scheduled in June. He denied paranoia and hallucinations, and felt his medications were working well. He was advised to return in 8 weeks for follow-up. No medication changes were made , and he was continued on ziprasidone 120 mg twice daily, Depakote ER 3500 mg daily, buspirone 30 mg twice daily, loxapine 100 mg nightly, bupropion SR 150 mg twice daily, and clonazepam 1 mg as needed. He was seen January 16, 2017 and reported stable symptoms, with improvement in irritability since resuming loxapine. He was seen December 19, 2016, reported improvement in anxiety and irritability, and had been given the wrong medication at the pharmacy, so had been taking escitalopram 10 mg daily for 3 weeks. At his appointment November 07, 2016, he reported he was not doing well, was in a lot of pain from his knees and feet, and endorsed irritability and paranoia about others. He said he had been feeling hopeless, and had decided that he would commit suicide in February , but was no longer feeling that way. His bupropion and loxapine were both increased. At his August 29, 2016 appointment he reported that he was having worsening knee pain and lymphedema, and said his PCP had told him loxapine may be responsible for low sodium, so decided to stop taking it. His initial intake from June 2015 was reviewed, and he had been in therapy at the clinic since 1995. Past records indicated a history of depressive episodes, manic episodes, auditory and visual hallucinations, and delusions of persecution, and he was diagnosed with schizoaffective disorder bipolar type, alcohol use disorder in remission, and caffeine use. Impression Schizoaffective bipolar type - 302 admission for SI with psychotic symptoms present, but is now minimizing both his suicidal statements and his psychotic symptoms, and is focused on being discharged as soon as possible. He does not believe he can benefit from treatment, but was initially unwilling to engage in therapy, groups, safety planning or a family meeting. He will have a meeting with his case liner tomorrow. His Depakote level was high, and we will decrease his dose, and as his outpatient records have now been received and reviewed, we discovered that he did not know all of the medications he was taking, so they will be restarted. He continues to require inpatient treatment as his risk factors have not been mitigated and he remains at risk for suicide if discharged prematurely. He is also having some medical issues, with hyponatremia, and is being treated for UTI with Cipro, which may have contributed to his AMS/psychotic symptoms on admission. Plan (1) Schizoaffective disorder, bipolar type q15 minutes checks continue current outpt psychiatric medications of depakote er, loxapine, cogentin, klonopin prn, buspar, Geodon, with only change to his psychiatric outpt meds at this time being adjusting Geodon 160mg dose to be given at dinner to help increase absorption and thus aim to increase serum level obtain then when takes at bedtime with pt consent to do so. this might further alleviate pt 's paranoia and irritability appears pt has been off wellbutrin sr with pt indicating that Dr. Tamayo stopped this med and will not restart this med at this time RENU sent to obtain records from Dr. Tamayo and will attempt to coordinate care with Dr. Tamayo and case liner and arrange aftercare. clarifying SI concerns and psychotic symptoms and pt's functioning and safety concerns and assessing for need for 303 hearing individual and group therapy while on the unit pt has been sober from alcohol for 33 years per pt of note pt on tramadol prn PROFESSIONAL NURSE Rx was checked at time of admission by this keno writer/runner with main concern being pt also on tramadol and his polypharmacy 06/17 - last fasting labs on file were from 2016, so will order hemoglobin A1c and fasting lipid profile for tomorrow. Will also order a repeat BMP to follow hyponatremia, and a valproate trough level for tonight. - Request records from the [facility] psych clinic, Dr. Tamayo. - Social work to contact case liner to get collateral information and arrange a meeting, as he continues to refuse a family meeting with anyone else. - Continue to gather information toward the need for ongoing involuntary commitment, would like to get collateral information from family or friends, but patient is refusing to allow staff to speak with anyone. 06/18 -Admission med rec was missing bupropion SR 150 mg twice daily, which has been added and restarted. In order for him to receive his home supply of loxapine, as it is nonformulary. -Depakote trough was elevated at 122, so will decrease his dose to 1500 mg with dinner and at bedtime. He will need a repeat trough in 5 days. -Reviewed labs: Fasting lipid profile was normal, hemoglobin A1c was elevated at 5.7, for an estimated average glucose of 117. -Patient has been calm and cooperative, so will discontinue his private room. (2) UTI (urinary tract infection) Diagnosed with UTI in the ER, per hospitalist follow cultures, but no cultures - spoke with lab, who state a culture was never ordered. Will complete course of Cipro 500 mg daily 3 days, and he will need to follow-up with his PCP. (3) Lymphedema of both lower extremities denise bandages, on lasix but holding dose on 06/16 given hyponatremia (4) Hyponatremia hold lasix for 06/16, repeat lab on 06/17, monitor and if improving continue treatment plan, with adjustments as needed if Na not improving further. 06/17 - Order repeat BMP for tomorrow. Furosemide still being held. He will need follow-up with his PCP, Dr. Carrillo. 06/18 - Sodium is 135, potassium 5.3. Resume furosemide. (5) Benign hypertension continue outpt medication (6) Diabetes nl blood sugars in ER, h/o hypoglycemia at times in past, h/o metformin in past, managed by diet currently, qam accuchecks (7) Hypothyroidism continue outpt thyroid med . TSH normal. (8) Gastroesophageal reflux disease continue outpt med Discharge / Aftercare Planning Primary Care Physician: Name: Dr Carrillo, [facility] Date of Appointment: Jun 28, 2017 Time of Appointment: 4:00 p.m. Appointment Notes: [id number] [facility] Psychiatrist: Name: JOHNNY Ford, [facility] Date of Appointment: Jun 26, 2017 Time of Appointment: 2:30 p.m. Appointment Notes: [address] [place] [address] Therapist: Name: Josefina Pascual [facility] Talent Associate: Name: Jahaira Harry [facility] (work cell) Date of Appointment: Jun 19, 2017 Time of Appointment: 12:00 p.m. Appointment Notes: [address], [place], [place] [address] Other: Name of Appointment #1: Physical Therapist Date of Appointment #1: Jun 22, 2017 Appointment #1 Notes: Mobile PT - will go to patient's home Visit Code E&M Code: 61077 Inventory Assets Strengths: makes friends easily, has outpatient provider, appears to be taking his medications, has case liner Needs: stabilization of psychiatric symptoms, pt endorsed need for improving socialization Risk Factors Assessment Male: Yes : Yes /single/: Yes Health problems: Yes Mental Health Diagnoses: Yes Previous attempt: No Previous psychiatric stay: Yes Hopelessness: No Smoker: No Protective Factors Assessment Employed: No Data Vital Signs Last 24 Hrs: Date Time Temp Pulse Resp B/P (MAP) Pulse Ox O2 Delivery O2 Flow Rate FiO2 06/18/17 06:57 36.4 79 16 142/90 81 139/94 Meds Administered Last 24 Hrs: Meds Administered (Past 24Hrs) Medications (Trade) Dose Ordered Sig/Daniel Route Start Time Stop Time Status Last Admin Dose Admin Ziprasidone (Geodon Cap) 160 mg QDD PO 06/16/17 17:45 07/15/17 21:59 06/17/17 18:07 160 MG Buspirone HCl (BusPAR TAB) 30 mg BID PO 06/16/17 22:00 07/16/17 21:59 06/18/17 08:32 30 MG Polyethylene (Miralax Powder Packet) 17 gm DAILY PRN PO 06/17/17 09:45 07/17/17 09:44 06/17/17 11:05 17 GM Ciprofloxacin (Cipro Tab) 500 mg DAILY PO 06/18/17 09:00 06/20/17 08:59 06/18/17 08:33 500 MG Ciprofloxacin (Cipro Tab) 500 mg 1145 ONCE PO 06/17/17 11:45 06/17/17 11:46 DC 06/17/17 13:12 500 MG Lab Results Last 24 Hrs: Last 24 Hours Test 06/17/17 19:49 06/18/17 08:00 06/18/17 08:16 Valproic Acid (Depakene) Level 122 mcg/ml Sodium Level 135 mmol/L Potassium Level 5.3 mmol/L Chloride Level 102 mmol/L Carbon Dioxide Level 26 mmol/L Anion Gap 8.0 mmol/L Blood Urea Nitrogen 16 mg/dl Creatinine 1.13 mg/dl Est Creatinine Clear Calc Drug Dose 91.7 ml/min Estimated GFR () 82.0 Estimated GFR (Non- 70.8 BUN/Creatinine Ratio 14.5 Random Glucose 110 mg/dl Estimated Average Glucose 117 mg/dl Hemoglobin A1c 5.7 % Calcium Level 9.1 mg/dl Triglycerides Level 95 mg/dl Cholesterol Level 147 mg/dl HDL Cholesterol 44 mg/dl LDL Cholesterol, Calculated 84 mg/dl VLDL Cholesterol, Calculated 19 mg/dl Cholesterol/HDL Ratio 3.3 Bedside Glucose 86 mg/dl
[2017-06-18] MEDS ORDERED: FUROSEMIDE 40 MG TAB PO ONE (13:15)
[2017-06-18] MEDS: DIVALPROEX 500 MG EXTENDED RELEASE TAB PO SCH ×2 (13:30→21:12)
[2017-06-18] MEDS: BuPROPion SR 150 MG TABCR PO SCH (17:44)
[2017-06-18] MEDS: ZIPRASIDONE 80 MG CAP PO SCH (17:45)
[2017-06-18] MEDS: BENZTROPINE MESYLATE 1 MG TAB PO SCH (21:11)
[2017-06-18] MEDS: CIPROFLOXACIN 500 MG TAB PO SCH (21:11)
[2017-06-18] MEDS: PRAVASTATIN SOD 20 MG TAB PO SCH (21:13)
[2017-06-18] MEDS: MONTELUKAST SOD 10 MG TAB PO SCH (21:14)
[2017-06-18] MEDS: CLONAZEPAM 1 MG TAB PO PRN (21:58)
[2017-06-18] MEDS ORDERED: LOXAPINE SUCCINATE 50 MG CAP PO SCH (22:00)
[2017-06-19 07:00] VITALS: BP_SYST 122; BP_DIAS 83; BP_DIAS 88; PULSE 76; PULSE 84; TEMP 36.4
[2017-06-19] MEDS ORDERED: DPKSR/500 PO (08:26)
[2017-06-19] MEDS ORDERED: GDN/80 PO (08:26)
[2017-06-19] MEDS: POTASSIUM CHLORIDE 20 MEQ TABCR PO SCH (09:00)
[2017-06-19] MEDS: LEVOTHYROXINE 175 MCG TAB PO SCH (09:04)
[2017-06-19] MEDS: BusPIRone 15 MG TAB PO SCH (09:05)
[2017-06-19] MEDS: ASPIRIN 81 MG ECTAB PO SCH (09:05)
[2017-06-19] MEDS: LORATADINE 10 MG TAB PO SCH (09:05)
[2017-06-19] MEDS: CIPROFLOXACIN 500 MG TAB PO SCH (09:05)
[2017-06-19] MEDS: DOCUSATE SODIUM/SENNA 50/8.6MG TAB PO SCH (09:06)
[2017-06-19] MEDS: BuPROPion SR 150 MG TABCR PO SCH (09:06)
[2017-06-19] MEDS: FUROSEMIDE 40 MG TAB PO SCH (09:06)
[2017-06-19] MEDS: RANITIDINE HCL 150 MG TAB PO SCH (09:07)
[2017-06-19] MEDS: LISINOPRIL 10 MG TAB PO SCH (09:07)
--- NOTE | 2017-06-19 10:11 | Discharge Instructions ---
Discharge Information Report Includes Report will include the: Discharge Instructions & Summary Admission Admission Date / Time: Jun 15, 2017 at 16:38 Reason for Admission: Schizoaffective Disorder, Bipolar Type Discharge Discharge Diagnosis / Problem: schizoaffective disorder, bipolar type. UTI. Condition at Discharge: Good Discharge Goals Goal(s): Improve function, Improve disease control, Learn about illness, Therapeutic intervention, Specific goals (correct electrolyte imbalance, adjust Depakote) Activity Recommendations Activity Limitations: per Instructions/Follow-up section . Instructions / Follow-Up Instructions / Follow-Up . SPECIAL CARE INSTRUCTIONS: 1. Follow through with your scheduled aftercare appointments. If unable to keep an appointment, please call to reschedule. 2. Take your medication only as prescribed. Medication should not be changed or stopped without the approval of your doctor. In the event of worsening symptoms or concerns about side effects, contact your doctor immediately. You will need to get a Depakote trough level drawn on or after 06/22/17. This will be sent to Dr. Tamayo. 3. Utilize new healthy coping skills, anger management skills, and stress management skills learned during your hospitalization. Journal feelings and process them with a support person. Identify stressors or situations that may result in relapse, deterioration or inappropriate behaviors and develop a plan to deal with those issues. 4. If your coping skills are ineffective and you are in crisis, contact your outpatient providers for direction. If unable to reach your providers, please call the CAN HELP LINE AT or go to the closest Emergency Room. 5. Avoid alcohol and un-prescribed drugs. 6. You have been provided with the Mental Health Advance Directives Pamphlet for your review. AFTERCARE APPOINTMENTS: * Please call your insurance company prior to your scheduled appointment to confirm your aftercare providers are covered. Take your insurance information to your appointments. . Discharge / Aftercare Planning Primary Care Physician: Name: [facility] Date of Appointment: Jun 28, 2017 Time of Appointment: 4:00 p.m. Appointment Notes: [id number] [facility] Psychiatrist: Name: JOHNNY Ford, [facility] Date of Appointment: Jun 26, 2017 Time of Appointment: 2:30 p.m. Appointment Notes: [address] [place] [address], [place] [address] Therapist: Name Of Therapist: [facility] Php Software Engineer: Name: Jahaira Harry [facility] (work cell) Date of Appointment: Jun 19, 2017 Time of Appointment: 2:00 p.m. Appointment Notes: [address], [place] [address] Other: Name of Appointment #1: Physical Therapist Date of Appointment #1: Jun 22, 2017 Appointment #1 Notes: Mobile PT - will go to patient's home . Follow-Up Care Plan for Follow-Up Care: See above. Current Hospital Diet Patient's current hospital diet: Diabetes Type 2 Diet Discharge Diet Recommended Diet: Diabetes Type 2 Diet Procedures Procedures Performed: No Pending Studies Pending Studies at Discharge: No Medical Emergencies . Who to Call and When: Medical Emergencies: For questions or emergencies related to your hospital stay, please contact the Inpatient Behavioral Health Unit at [phone]. A condominium property manager is on-call 19/11 for the Behavioral Health Unit for emergencies At any time you feel your situation is an emergency, you may also call 911 immediately. . Non-Emergent Contact Non-Emergency issues call your: Primary Care Provider, Psychiatrist, Php Software Engineer Past History Medical & Surgical History: (1) Lymphedema of both lower extremities (2) UTI (urinary tract infection) (3) Hyponatremia (4) Hypothyroidism (5) Diabetes (6) Gastroesophageal reflux disease (7) Asthma (8) Benign hypertension Advance Directives Existing Advance Directive: No Do You Have an Existing Mental: No Existing Living Will: No Existing Power of Kick Press Setter: No Advance Directives Info Given: To Pt/S.O. Advance Directives Reason: Declines as Mental Health Visit. Discharge Summary Admission HPI Per the Admitting provider: Lam is a 57 yr old male with h/o "bipolar" and records of also schizophrenia ( probably schizoaffective bipolar type) disorder who exhibits irritability, grandiosity, some disorganization his thinking and paranoid thinking. He was brought to the ER under a 302 petition due to comments about killing himself that day or the next day. He reports that he made such comments but that he did not mean them but that he had also reached out to can help due to emotion al distress and that had watched a movie and calmed down and reached a state of serenity before being brought to the ER. He indicates that he will call the police on Saturday to have them discharge him by noon on Saturday with aiming to be home for his eileena appt with the Lymphedema related nursing care appt he is scheduled to have then. He is invol. admitted on a 302 for his SI concerns and along with his other symptoms impacitng his presentation. He denied AH for the past number of years during this assessment with assessments yesterday indicating that he was having AH. He endorsed seeing some things come out of the TV perhaps in the past month but in the past few days. He reported that various people were watching him and taking photos of him with there smart phone camers, including at [place] and outside his window of his apartment. He denied any alcohol usage since Feb, 1984. He denied any substance usage or nicotine usage. He denied any h/o past suicidal behaviors or SIB or HI or aggressive behaviors. He denied having OCD symptoms or panic attacks. He indicated that he can get angry when dealing with hostile people and he felt that I was hostile at first but then indicated liking me as the interview progressed further, since I was allowing him time to answer questions. He did get defensive and irritated frequently during the interview process but always settled down quickly. He appears to have been taken off of wellbutrin sr by his outpt provider Dr. Tamayo although pt made a comment that wellbutrin sr was a good med for him. HE appears to be taking depakote ER 2000mg in afternoon and Depakote ER 1500mg hs but made comments about this med was stopped by Dr. Tamayo, but that he needs this med? He has been taking also taking buspar 30mg bid, Geodon at 160mg hs, loxapine 10mg hs, benztropine 2mg hs, klonopin 1mg up to tid prn with tendency to take 1-2 doses a day, Pt indicated that has seen a student therapist about 4 months ago. He indicated that he has a nurse outreach case manager. He indicated that he sees Dr. Tamayo every few months with last appt one month ago and on a schedule that pt decides per pt. He reports that his last psychiatric admission was 10 years aog and indicated that was here, (check writer salesperson looked for records of this admission in the electronic chart but doid not locate it, finding only a psychiatric consult by Dr Joseph from a medical admission in that time frame. Pt attends 12 steps meetings every couple months or so, with having attended meetings frequently many years. Admission Exam Per the Admitting provider: Please see admission H&P. Consultations None. Hospital Course (1) Schizoaffective disorder, bipolar type q15 minutes checks continue current outpt psychiatric medications of depakote er, loxapine, cogentin, klonopin prn, buspar, Geodon, with only change to his psychiatric outpt meds at this time being adjusting Geodon 160mg dose to be given at dinner to help increase absorption and thus aim to increase serum level obtain then when takes at bedtime with pt consent to do so. this might further alleviate pt 's paranoia and irritability appears pt has been off wellbutrin sr with pt indicating that Dr. Tamayo stopped this med and will not restart this med at this time RENU sent to obtain records from Dr. Tamayo and will attempt to coordinate care with Dr. Tamayo and nurse outreach case manager and arrange aftercare. clarifying SI concerns and psychotic symptoms and pt's functioning and safety concerns and assessing for need for 303 hearing individual and group therapy while on the unit pt has been sober from alcohol for 33 years per pt of note pt on tramadol prn FOOD EDITOR Rx was checked at time of admission by this check writer salesperson with main concern being pt also on tramadol and his polypharmacy 06/17 - last fasting labs on file were from 2015, so will order hemoglobin A1c and fasting lipid profile for tomorrow. Will also order a repeat BMP to follow hyponatremia, and a valproate trough level for tonight. - Request records from the [facility] psych clinic, Dr. Tamayo. - Social work to contact nurse outreach case manager to get collateral information and arrange a meeting, as he continues to refuse a family meeting with anyone else. - Continue to gather information toward the need for ongoing involuntary commitment, would like to get collateral information from family or friends, but patient is refusing to allow staff to speak with anyone. 06/18 -Admission med rec was missing bupropion SR 150 mg twice daily, which has been added and restarted. In order for him to receive his home supply of loxapine, as it is nonformulary. -Depakote trough was elevated at 122, so will decrease his dose to 1500 mg with dinner and at bedtime. He will need a repeat trough in 5 days. -Reviewed labs: Fasting lipid profile was normal, hemoglobin A1c was elevated at 5.7, for an estimated average glucose of 117. -Patient has been calm and cooperative, so will discontinue his private room. 06/19 -Meeting with outpatient nurse outreach case manager today, then discharge to home. Lam continues to deny suicidal thoughts, and is able to review his detailed safety plan. -Reviewed all medications with patient: Depakote dose decreased, will need trough level drawn after 5 days, lab slip provided and results to be sent to Dr. Tamayo. -F/u with Dr. Tamayo 06/26/17. (2) UTI (urinary tract infection) Diagnosed with UTI in the ER, per hospitalist follow cultures, but no cultures - spoke with lab, who state a culture was never ordered. Will complete course of Cipro 500 mg daily 3 days, and he will need to follow-up with his PCP. 06/19 - Complete course of Cipro, Rx sent to pharmacy. F/u with PCP, Dr. Carrillo, on 06/28/17. Reviewed this with patient. (3) Lymphedema of both lower extremities denise bandages, on lasix but holding dose on 06/16 given hyponatremia 06/19 - Furosemide resumed, f/u with PCP 06/28. (4) Hyponatremia hold lasix for 06/16, repeat lab on 06/17, monitor and if improving continue treatment plan, with adjustments as needed if Na not improving further. 06/17 - Order repeat BMP for tomorrow. Furosemide still being held. He will need follow-up with his PCP, Dr. Carrillo. 06/18 - Sodium is 135, potassium 5.3. Resume furosemide. Potassium supplementation held. 06/19 - May resume potassium tomorrow, and advised patient of the importance to follow up with his PCP next week. (5) Benign hypertension continue outpt medication (6) Diabetes nl blood sugars in ER, h/o hypoglycemia at times in past, h/o metformin in past, managed by diet currently, qam accuchecks (7) Hypothyroidism continue outpt thyroid med . TSH normal. (8) Gastroesophageal reflux disease continue outpt med Risk Factors Assessment Male: Yes : Yes /single/: Yes Higher / Fall in social status: No Access to guns: No Health problems: Yes Mental Health Diagnoses: Yes Substance use disorders: No Previous attempt: No Family history of suicide: No Previous psychiatric stay: Yes Hopelessness: No Smoker: No Protective Factors Assessment Spiritism beliefs: Yes : No Responsible for young children: No Employed: No Stable relationships: Yes Supportive family: Yes Good rapport with provider: Yes Absence of risk factors above: Yes (Risk factors mitigated by admission to the inpatient unit, adjusting medications, coordinating care with his outpatient psychiatric provider, involving him in groups and therapy, working on healthy coping skills and a discharge safety plan. He has demonstrated improved mood, is denying suicidal thoughts, is willing to follow up with outpatient providers , it is requesting discharge. As he is no longer at acute risk of harm to himself, he can be managed as an outpatient at this time. He does not have significant risk factors for harm to others.) Day of Discharge Assessment Hospital course: Initially on admission, the patient was continued on his home medications. He was a limited historian, and did not know all of his medications, did not initially report being on bupropion. When records were received from his outpatient clinician, he was restarted on his home dose of bupropion. He reported confusion and had episodes of disorientation, so his Depakote trough level was checked and was elevated at 122. His Depakote dose was decreased, and he was instructed to go to the lab and have blood drawn for another trough level after 5 days on the lower dose. He was continued on Cipro for a UTI that was diagnosed in the emergency room. He was initially very angry about being admitted, feeling that he did not need to be hospitalized, and initially he was poorly engaged in treatment and focused only on discharge. His attitude improved throughout his stay, he began going to groups, and said that they were helpful. He initially refused any kind of family meeting, and would not sign releases to involve any of his friends or family in his treatment. He eventually agreed to a meeting with his outpatient nurse outreach case manager, Kamryn, which was scheduled on the day of discharge. Date of discharge assessment: The patient reports his mood is significantly improved since admission, and he continues to deny suicidal thoughts. He is able to review his safety plan, and feels he has good supports from friends, family, AA, and his outpatient providers. He denies side effects to medications, and we reviewed all of his medicines, including the changes that were made. He states that he initially did not want to attend groups because he did not think they would help, and does not like them, but after he started going, realized that they were very beneficial for him. He is not interested in pursuing therapy as an outpatient, or in making changes to his daily schedule, which typically consists of him sleeping all day and then staying up all night to watch movies. He states that he likes this pattern, as he does not like people, and has many complaints about society and people in general. Overweight white male appearing stated age. Casually dressed and adequately groomed. Calm and cooperative. Seated in NAD, with fair eye contact and no abnormal movements. Speech is normal rate, volume, and tone. Mood is "good, I am good," and affect is stable and congruent. Thoughts are goal directed, circumstantial and tangential at times. The patient denied suicidal and homicidal ideation and was able to review his safety plan. No paranoia, delusions, or hallucinations, and did not appear to be responding to internal stimuli. Cognition was grossly intact. Alert and oriented to person, place and time. Intelligence is consistent with level of education. Insight and and judgment are fair. Laboratory Test 06/14/17 23:56 06/15/17 00:00 06/15/17 09:23 06/17/17 19:49 White Blood Count 8.07 Red Blood Count 4.96 Hemoglobin 15.1 Hematocrit 43.5 Mean Corpuscular Volume 87.7 Mean Corpuscular Hemoglobin 30.4 Mean Corpuscular Hemoglobin Concent 34.7 RDW Standard Deviation 43.4 RDW Coefficient of Variation 13.7 Platelet Count 246 Mean Platelet Volume 9.2 Total Bilirubin 0.5 Direct Bilirubin < 0.1 Aspartate Amino Transferase (AST) 20 Alanine Aminotransferase (ALT) 21 Alkaline Phosphatase 85 Total Protein 7.2 Albumin 3.6 3.7 Thyroid Stimulating Hormone (TSH) 3.360 Salicylates Level < 1.7 Acetaminophen Level < 2 Ethyl Alcohol mg/dL < 3.0 Urine Color YELLOW Urine Appearance CLOUDY Urine pH >= 9.0 Urine Specific [place] 1.006 Urine Protein NEG Urine Glucose (UA) NEG Urine Ketones NEG Urine Occult Blood NEG Urine Nitrite NEG Urine Bilirubin NEG Urine Urobilinogen NEG Urine Leukocyte Esterase LARGE Urine WBC (Auto) >30 Urine RBC (Auto) 0-4 Urine Hyaline Casts (Auto) 1-5 Urine Epithelial Cells (Auto) 0-5 Urine Bacteria (Auto) NEG Urine Opiates Screen NEG Urine Methadone, Qualitative NEG Urine Barbiturates NEG Urine Phencyclidine (PCP) Level NEG Ur Amphetamine/Methamphetamine NEG MDMA (Ecstasy) Screen NEG Urine Benzodiazepines Screen NEG Urine Cocaine Metabolite NEG Urine Marijuana (THC) NEG Sodium Level 133 Potassium Level 4.2 Chloride Level 98 Carbon Dioxide Level 26 Anion Gap 9.0 Blood Urea Nitrogen 11 Creatinine 1.43 Est Creatinine Clear Calc Drug Dose 72.5 Estimated GFR () 61.7 Estimated GFR (Non- 53.2 BUN/Creatinine Ratio 7.6 Random Glucose 90 Calcium Level 9.1 Phosphorus Level 2.4 Valproic Acid Level 86 122 Test 06/18/17 08:00 06/18/17 08:16 06/18/17 15:09 06/19/17 09:00 Sodium Level 135 Potassium Level 5.3 Chloride Level 102 Carbon Dioxide Level 26 Anion Gap 8.0 Blood Urea Nitrogen 16 Creatinine 1.13 Est Creatinine Clear Calc Drug Dose 91.7 Estimated GFR () 82.0 Estimated GFR (Non- 70.8 BUN/Creatinine Ratio 14.5 Random Glucose 110 Estimated Average Glucose 117 Hemoglobin A1c 5.7 Calcium Level 9.1 Triglycerides Level 95 Cholesterol Level 147 HDL Cholesterol 44 LDL Cholesterol, Calculated 84 VLDL Cholesterol, Calculated 19 Cholesterol/HDL Ratio 3.3 POC Glucose 86 104 Ammonia 11.0 Total Time Total Time Spent (min): Greater than 30 minutes Total Time Included: examination of the patient, discharge planning, medication reconciliation Tobacco Cessation at Discharge Smoking Status: Never Smoker FDA approved Prescription: non-smoker
[2017-06-19] MEDS ORDERED: CPR500 PO (10:12)
[2017-06-19] MEDS: DIVALPROEX 500 MG EXTENDED RELEASE TAB PO SCH (12:38)
== END 2017-06-19 15:45 | disposition home or self-care (01) | DRG 885 ==
LOC: EDBD 22:11 → C.EDA 22:12 → C.MHU 06-15 16:38
PROVIDERS: ADMIT Psychiatry & Neurology Psychiatry; ATTEND Psychiatry & Neurology Psychiatry
DX: F20.9 Schizophrenia, unspecified (principal); E87.1 Hypo-osmolality and hyponatremia; N39.0 Urinary tract infection, site not specified; J45.909 Unspecified asthma, uncomplicated; I10 Essential (primary) hypertension; F31.9 Bipolar disorder, unspecified; E11.9 Type 2 diabetes mellitus without complications; K21.9 Gastro-esophageal reflux disease without esophagitis; F22 Delusional disorders; E03.9 Hypothyroidism, unspecified; I89.0 Lymphedema, not elsewhere classified; G47.00 Insomnia, unspecified; Z79.899 Other long term (current) drug therapy; Z87.01 Personal history of pneumonia (recurrent); Z79.82 Long term (current) use of aspirin; Z83.3 Family history of diabetes mellitus; Z82.49 Family history of ischemic heart disease and other diseases of the circulatory system; Z83.79 Family history of other diseases of the digestive system

== ENCOUNTER → 2017-07-01 | Outpatient (CLI) | payer OTHER ==
[~2017-07-01] MED LIST changes: -BUPR-79 PO; +BUSP-8 PO; +CPR500 PO; -DIVA500T3 PO; +DIVA500T59 PO; -FLUO20CA35 PO; -GLC/500 PO; +MAGN1TAB41; -MAGN400T6 PO; +METF-383 PO; +VNTHFA/IN INH; +WLLSR150 PO
== END | disposition home or self-care (01) ==
LOC: C.LAB 13:22
PROVIDERS: ATTEND Psychiatry & Neurology Psychiatry
DX: F25.0 Schizoaffective disorder, bipolar type (principal)

== ENCOUNTER 2017-07-11 03:19 | Emergency (ER) | payer OTHER ==
[~2017-07-11] VITALS: Ht 180.3 cm; Wt 111.0 kg
[~2017-07-11 03:19] MED LIST changes: -BUSP30TA2 PO; -CPR500 PO
[2017-07-11 03:24] VITALS: TEMP 36.9; Ht 180.3 cm; Wt 111.0 kg
[2017-07-11 05:12] VITALS: BP 152/103; PULSE 89; O2SAT 95
--- NOTE | 2017-07-11 07:06 | DIAGNOSTIC IMAGING REPORT ---
CHEST 2 VIEWS ROUTINE CLINICAL HISTORY: pneumonia recheck pneumonia COMPARISON STUDY: 07/01/2017 FINDINGS: The lungs now considered clear. Slight bronchovascular prominence is considered chronic baseline appearance in this patient. Mild tortuosity thoracic aorta. IMPRESSION: No acute process. Lungs are now considered clear. The above report was generated using voice recognition software. It may contain grammatical, syntax or spelling errors. Electronically signed by: Jean Marie Prather M.D. 07/11/2017 7:04 AM Dictated Date/Time: 07/11/2017 7:01 AM
--- NOTE | 2017-07-11 23:54 | EMERGENCY ROOM VISIT NOTE ---
History First contact with patient: 03:31 Chief Complaint: RESPIRATORY PROBLEMS Stated Complaint: PNEUMONIA Nursing Triage Summary: Patient states he was previously Tx for pneumonia "but I dropped 2 pills". Pt states he was scheduled to have a knee replacement saturday but they cancelled due to the pneumonia not improving. "I have some shortness of breath and diarrhea." History of Present Illness The patient is a 57 year old male who presents to the Emergency Room essentially for follow-up of pneumonia. The patient states that he was diagnosed with a pneumonia a few weeks ago and was placed on 10 days worth of antibiotics. He states that he lost pills and did not complete the full 10 days. He went for a preoperative chest x-ray about 2 weeks ago as he is having knee replacement surgery. His preoperative chest x-ray showed some improvement , but persistent pneumonia findings. The patient states that he has an upcoming appointment with orthopedics and is concerned that his pneumonia has recurred and will prevent him from having his surgery. He does not have fever or chills. He does report having an episode of diarrhea today. He is otherwise at his baseline. Review of Systems More than 10 systems were reviewed and otherwise negative with the exception of history of present illness. Past Medical/Surgical History Medical Problems: (1) Altered mental status (2) Asthma (3) Benign hypertension (4) Bilateral lower extremity edema (5) Bipolar disorder (6) Community acquired pneumonia (7) Diabetes (8) Gastroesophageal reflux disease (9) Hypoglycemia (10) Hyponatremia (11) Hypothyroidism (12) Hypoxia (13) Insomnia (14) Knee pain (15) Lymphedema of both lower extremities (16) PNA (pneumonia) (17) Pneumonia (18) Pneumonia (19) Rib pain on left side (20) Schizoaffective disorder, bipolar type (21) Schizophrenia (22) Sepsis (23) Sepsis (24) SOB (shortness of breath) (25) Soft tissue disorder (26) Unable to void (27) UTI (urinary tract infection) (28) Weakness Family History Diabetes mellitus Gallbladder disease Hypertension Social History Smoking Status: Never Smoker Alcohol Use: none Drug Use: none Marital Status: single Housing Status: lives alone Occupation Status: unemployed Current/Historical Medications Scheduled Aspirin (Aspirin Ec), 81 MG PO QAM Benztropine Mesylate (Benztropine Mesylate), 2 MG PO HS Bupropion HCl (Bupropion HCl Sr), 150 MG PO BID Buspirone Hcl (Buspirone Hcl), 15 MG PO BID Divalproex Sodium (Depakote Etended-Release), 2,000 MG PO BID Furosemide (Lasix), 40 MG PO QAM Levothyroxine Sodium (Levothyroxine Sodium), 175 MCG PO QAM Lisinopril (Lisinopril), 10 MG PO QAM Loratadine (Claritin), 10 MG PO QAM Loxapine Succinate (Loxapine), 100 MG PO HS Metformin Hcl (Glucophage), 850 MG PO BID Montelukast Sodium (Singulair), 10 MG PO HS Omeprazole (Prilosec), 20 MG PO QAM Polyethylene Glycol 3350 (Miralax), 17 GM PO BID Potassium Ext Rel (Klor-Con), 20 MEQ PO BID Pravastatin Sodium (Pravachol), 20 MG PO HS Prednisone (Prednisone), 40 MG PO HS Ranitidine (Zantac), 150 MG PO BID Sennosides-Docusate Sodium (Senna Plus), 1 TAB PO BID Ziprasidone Hcl (Geodon), 160 MG PO QDD Scheduled PRN Albuterol Hfa (Ventolin Hfa), 2-4 PUFFS INH UD PRN for ASTHMA Clonazepam (Klonopin), 1 MG PO TID PRN for Anxiety Naproxen (Naprosyn), 500 MG PO UD PRN for Pain Tramadol HCl (Tramadol HCl), 50-100 MG PO Q4 PRN for Pain Miscellaneous Medications Magnesium Oxide (Magnesium) Physical Exam Vital Signs Date Time Temp Pulse Resp B/P (MAP) Pulse Ox O2 Delivery O2 Flow Rate FiO2 07/11/17 05:12 89 20 152/103 95 Room Air 07/11/17 03:43 95 Room Air 07/11/17 03:24 36.9 91 18 180/137 96 Room Air Physical Exam VITALS: Vitals are noted on the nurse's note and reviewed by myself. Vital signs stable. GENERAL: Well-developed, well-nourished, white male, who is in no acute distress and resting comfortably. Patient is cooperative with the examination. NECK: Supple without nuchal rigidity. No lymphadenopathy. No thyromegaly. Cervical spine is nontender. HEART: Regular rate and rhythm without murmurs gallops or rubs. LUNGS: Clear to auscultation bilaterally without wheezes, rales or rhonchi. No retractions or accessory muscle use. ABDOMEN: Positive normal bowel sounds x 4. Soft, nontender, without masses or organomegaly. No guarding or rebound tenderness. Medical Decision & Procedures ER Provider Diagnostic Interpretation: CHEST 2 VIEWS ROUTINE CLINICAL HISTORY: pneumonia recheck pneumonia COMPARISON STUDY: 07/01/2017 FINDINGS: The lungs now considered clear. Slight bronchovascular prominence is considered chronic baseline appearance in this patient. Mild tortuosity thoracic aorta. IMPRESSION: No acute process. Lungs are now considered clear. ED Course Physical exam and history were performed. Nursing notes, EMR, and Medication List were personally reviewed. Patient appears to have history of previous pneumonia. He is concerned about recurrence of this. On examination he does not appear toxic. X-ray was performed and reviewed by myself and radiology as showing no acute process. Overall the patient appears well for discharge home. He is to follow with his primary care physician in the next 1-2 days for recheck. He was otherwise invited back to the ER with any new, worsening, or concerning symptoms. The chart was completed utilizing [employer] Speech Voice Recognition Software. Grammatical errors, random word insertions, pronoun errors, and incomplete sentences are an occasional consequence of this system due to software limitations, ambient noise, and hardware issues. Any formal questions or concerns about the content, text, or information contained within the body of this dictation should be directly addressed to the provider for clarification. . Medical Decision Differential diagnosis: Etiologies such as infections, reactive airway disease, pneumonia, pneumothorax , COPD, CHF, cardiac ischemia, pulmonary embolism, musculoskeletal, gastrointestinal, as well as others were entertained. Impression Primary Impression: History of pneumonia Departure Information Dispostion Home / Self-Care Condition GOOD Forms HOME CARE DOCUMENTATION FORM, IMPORTANT VISIT INFORMATION Patient Instructions My [facility] Additional Instructions You were seen and evaluated today on an emergency basis only. This is not a substitute for, or an effort to provide, complete comprehensive medical care. It is not possible to recognize and treat all injuries or illnesses in a single emergency department visit. For this reason it is recommended that you followup with your primary care physician tomorrow for ongoing care and evaluation. You are welcome to return to the emergency department anytime with new, worsening, or concerning symptoms.
== END 2017-07-11 05:41 | disposition home or self-care (01) ==
LOC: C.EDB 03:22 → C.EDA 05:41
DX: Z87.01 Personal history of pneumonia (recurrent) (principal); R19.7 Diarrhea, unspecified; J45.909 Unspecified asthma, uncomplicated; I10 Essential (primary) hypertension; E11.9 Type 2 diabetes mellitus without complications; E03.9 Hypothyroidism, unspecified; K21.9 Gastro-esophageal reflux disease without esophagitis; Z79.82 Long term (current) use of aspirin; Z79.84 Long term (current) use of oral hypoglycemic drugs; Z79.52 Long term (current) use of systemic steroids; Z83.3 Family history of diabetes mellitus; Z83.79 Family history of other diseases of the digestive system; Z82.49 Family history of ischemic heart disease and other diseases of the circulatory system

== ENCOUNTER → 2017-08-06 | Outpatient (CLI) | payer OTHER ==
[~2017-08-06] MED LIST changes: -DIVA500T59 PO; +POTA-639 PO; -POTA20TA16 PO
[2017-08-06 18:11] LABS: BASO % 0.1 %; BASO ABS # 0.01 K/uL (0-0.2); EOS % 0.6 %; EOS ABS # 0.07 K/uL (0-0.5); HEMATOCRIT 47.1 % (42-52); HEMOGLOBIN 15.8 g/dL (14.0-18.0); IG# 0.02 K/uL (0.00-0.02); LYMPH % 19.9 %; LYMPH ABS # 2.27 K/uL (1.2-3.4); MEAN CELL VOLUME 88.9 fL (80-100); MEAN CORPUSCULAR HEMOGLOBIN 29.8 pg (25-34); MEAN CORPUSCULAR HGB CONC 33.5 g/dl (32-36); MEAN PLATELET VOLUME 9.2 fL (7.4-10.4); MONO % 8.8 %; MONO ABS # 1.01 K/uL (0.11-0.59); NEUT % 70.4 %; NEUT ABS # 8.04 K/uL (1.4-6.5); PLATELET COUNT 237 K/uL (130-400); RED CELL DISTRIBUTION WIDTH CV 14.2 % (11.5-14.5); RED CELL DISTRIBUTION WIDTH SD 46.1 fL (36.4-46.3); WHITE BLOOD COUNT 11.42 K/uL (4.8-10.8)
--- NOTE | 2017-08-06 18:17 | DIAGNOSTIC IMAGING REPORT ---
CHEST 2 VIEWS ROUTINE HISTORY: 57 years-old Male Z01.818,M17.32 preoperative exam. No acute chest complaints. COMPARISON: Chest radiograph 07/11/2017 and 05/11/2017 TECHNIQUE: PA and lateral views of the chest FINDINGS: Cardiomediastinal and hilar silhouettes are within normal limits. There is tortuosity of the descending thoracic aorta, unchanged. There is no pneumothorax, pleural effusion or overt pulmonary edema. Ill-defined opacity of the right midlung seen only on the PA view appears new from comparison. The bones of the chest appear grossly intact. Degenerative changes are seen within the shoulders and spine. IMPRESSION: Ill-defined subsegmental opacity of the right midlung seen on the PA view only appears new from prior study and is suspicious for possible pneumonia. Correlate clinically. The above report was generated using voice recognition software. It may contain grammatical, syntax or spelling errors. Electronically signed by: Jet Erwin M.D. 08/06/2017 6:15 PM Dictated Date/Time: 08/06/2017 6:13 PM
[2017-08-06 18:19] LABS: PTT PATIENT 25.3 SECONDS (21.0-31.0)
[2017-08-06 18:48] LABS: ALBUMIN 4.1 gm/dl (3.4-5.0); ALT/SGPT 27 U/L (12-78); AST/SGOT 22 U/L (15-37); BLOOD UREA NITROGEN 13 mg/dl (7-18); CALCIUM 9.5 mg/dl (8.5-10.1); CARBON DIOXIDE 27 mmol/L (21-32); CREATININE 1.29 mg/dl (0.60-1.40); GLUCOSE 93 mg/dl (70-99); POTASSIUM 4.2 mmol/L (3.5-5.1); SODIUM 133 mmol/L (136-145)
[2017-08-06 18:51] LABS: ALKALINE PHOSPHATASE 98 U/L (45-117); TOTAL PROTEIN 7.4 gm/dl (6.4-8.2)
== END | disposition home or self-care (01) ==
LOC: C.RAD 16:44
PROVIDERS: ATTEND Physician Assistant
DX: Z01.818 Encounter for other preprocedural examination (principal); M17.32 Unilateral post-traumatic osteoarthritis, left knee

== ENCOUNTER → 2017-08-22 | Outpatient (CLI) | payer OTHER ==
--- NOTE | 2017-08-22 15:00 | DIAGNOSTIC IMAGING REPORT ---
TWO VIEW CHEST CLINICAL HISTORY: Follow-up pneumonia. FINDINGS: PA and lateral chest radiographs are compared to study dated 08/06/2017. The cardiomediastinal silhouette is unremarkable. Patchy airspace consolidation in the right upper lobe has resolved from 08/06/2017. No airspace consolidation or pleural effusion is identified. There is no pneumothorax. The bony thorax appears intact. IMPRESSION: No active disease in the chest. Right upper lobe consolidation has resolved from 08/06/2017. Electronically signed by: Rome Brumfield M.D. 08/22/2017 2:59 PM Dictated Date/Time: 08/22/2017 2:58 PM
== END | disposition home or self-care (01) ==
LOC: C.RAD 14:35
PROVIDERS: ATTEND Internal Medicine
DX: J18.9 Pneumonia, unspecified organism (principal)

== ENCOUNTER 2017-08-27 07:34 | Inpatient (IN) | payer OTHER ==
[2017-07-01 15:24] VITALS: Ht 180.3 cm; Wt 104.7 kg
--- NOTE | 2017-07-01 16:05 | PAT Medication Instructions ---
Service Date Jul 01, 2017. Current Home Medication List Albuterol Hfa (Ventolin Hfa), 2-4 PUFFS INH UD PRN for ASTHMA Aspirin (Aspirin Ec), 81 MG PO QAM Benztropine Mesylate (Benztropine Mesylate), 2 MG PO HS Bupropion HCl (Bupropion HCl Sr), 150 MG PO BID Buspirone Hcl (Buspirone Hcl), 15 MG PO BID Clonazepam (Klonopin), 1 MG PO TID PRN for Anxiety Divalproex Sodium (Depakote Etended-Release), 1,500 MG PO HS Divalproex Sodium (Depakote), 2,000 MG PO AFTERNOON Furosemide (Lasix), 40 MG PO QAM Levothyroxine Sodium (Levothyroxine Sodium), 175 MCG PO QAM Lisinopril (Lisinopril), 10 MG PO QAM Loratadine (Claritin), 10 MG PO QAM Loxapine Succinate (Loxapine), 100 MG PO HS Magnesium Oxide (Magnesium) Metformin Hcl (Glucophage), 850 MG PO BID Montelukast Sodium (Singulair), 10 MG PO HS Naproxen (Naprosyn), 500 MG PO UD PRN for Pain Omeprazole (Prilosec), 20 MG PO QAM Polyethylene Glycol 3350 (Miralax), 17 GM PO BID Potassium Ext Rel (Klor-Con), 20 MEQ PO BID Pravastatin Sodium (Pravachol), 20 MG PO HS Prednisone (Prednisone), 40 MG PO HS Ranitidine (Zantac), 150 MG PO BID Sennosides-Docusate Sodium (Senna Plus), 1 TAB PO BID Tramadol HCl (Tramadol HCl), 50-100 MG PO Q4 PRN for Pain Ziprasidone Hcl (Geodon), 160 MG PO QDD Medication Instructions For Your Scheduled Surgery -Contact your surgeon for instructions for: Naproxen (Naprosyn), 500 MG PO UD PRN for Pain - Hold the following medications the morning of surgery: Furosemide (Lasix), 40 MG PO QAM Lisinopril (Lisinopril), 10 MG PO QAM Loratadine (Claritin), 10 MG PO QAM Metformin Hcl (Glucophage), 850 MG PO BID Polyethylene Glycol 3350 (Miralax), 17 GM PO BID Potassium Ext Rel (Klor-Con), 20 MEQ PO BID Ranitidine (Zantac), 150 MG PO BID Sennosides-Docusate Sodium (Senna Plus), 1 TAB PO BID - Take the following medications the morning of surgery with a sip of water: Albuterol Hfa (Ventolin Hfa), 2-4 PUFFS INH UD PRN for ASTHMA (if needed, and bring it with you to the hospital) Aspirin (Aspirin Ec), 81 MG PO QAM Bupropion HCl (Bupropion HCl Sr), 150 MG PO BID Buspirone Hcl (Buspirone Hcl), 15 MG PO BID Clonazepam (Klonopin), 1 MG PO TID PRN for Anxiety (if needed) Levothyroxine Sodium (Levothyroxine Sodium), 175 MCG PO QAM Omeprazole (Prilosec), 20 MG PO QAM Tramadol HCl (Tramadol HCl), 50-100 MG PO Q4 PRN for Pain (if needed) - Take the following medications as scheduled the afternoon/night before surgery : Albuterol Hfa (Ventolin Hfa), 2-4 PUFFS INH UD PRN for ASTHMA (if needed) Benztropine Mesylate (Benztropine Mesylate), 2 MG PO HS Bupropion HCl (Bupropion HCl Sr), 150 MG PO BID Buspirone Hcl (Buspirone Hcl), 15 MG PO BID Clonazepam (Klonopin), 1 MG PO TID PRN for Anxiety (if needed) Divalproex Sodium (Depakote Etended-Release), 1,500 MG PO HS Divalproex Sodium (Depakote), 2,000 MG PO AFTERNOON Loxapine Succinate (Loxapine), 100 MG PO HS Metformin Hcl (Glucophage), 850 MG PO BID Magnesium Oxide (Magnesium) Montelukast Sodium (Singulair), 10 MG PO HS Polyethylene Glycol 3350 (Miralax), 17 GM PO BID Potassium Ext Rel (Klor-Con), 20 MEQ PO BID Pravastatin Sodium (Pravachol), 20 MG PO HS Prednisone (Prednisone), 40 MG PO HS Ranitidine (Zantac), 150 MG PO BID Sennosides-Docusate Sodium (Senna Plus), 1 TAB PO BID Tramadol HCl (Tramadol HCl), 50-100 MG PO Q4 PRN for Pain (if needed) Ziprasidone Hcl (Geodon), 160 MG PO QDD If you have any questions please call us at [phone] or [phone] or [phone]
--- NOTE | 2017-07-01 16:27 | PAT Medication Instructions ---
Service Date Jul 01, 2017. Current Home Medication List Albuterol Hfa (Ventolin Hfa), 2-4 PUFFS INH UD PRN for ASTHMA Aspirin (Aspirin Ec), 81 MG PO QAM Benztropine Mesylate (Benztropine Mesylate), 2 MG PO HS Bupropion HCl (Bupropion HCl Sr), 150 MG PO BID Buspirone Hcl (Buspirone Hcl), 15 MG PO BID Clonazepam (Klonopin), 1 MG PO TID PRN for Anxiety Divalproex Sodium (Depakote Etended-Release), 1,500 MG PO HS Divalproex Sodium (Depakote), 2,000 MG PO AFTERNOON Furosemide (Lasix), 40 MG PO QAM Levothyroxine Sodium (Levothyroxine Sodium), 175 MCG PO QAM Lisinopril (Lisinopril), 10 MG PO QAM Loratadine (Claritin), 10 MG PO QAM Loxapine Succinate (Loxapine), 100 MG PO HS Magnesium Oxide (Magnesium) Metformin Hcl (Glucophage), 850 MG PO BID Montelukast Sodium (Singulair), 10 MG PO HS Naproxen (Naprosyn), 500 MG PO UD PRN for Pain Omeprazole (Prilosec), 20 MG PO QAM Polyethylene Glycol 3350 (Miralax), 17 GM PO BID Potassium Ext Rel (Klor-Con), 20 MEQ PO BID Pravastatin Sodium (Pravachol), 20 MG PO HS Prednisone (Prednisone), 40 MG PO HS Ranitidine (Zantac), 150 MG PO BID Sennosides-Docusate Sodium (Senna Plus), 1 TAB PO BID Tramadol HCl (Tramadol HCl), 50-100 MG PO Q4 PRN for Pain Ziprasidone Hcl (Geodon), 160 MG PO QDD Medication Instructions For Your Scheduled Surgery -Contact your surgeon for instructions for: Naproxen (Naprosyn), 500 MG PO UD PRN for Pain - Take the following medications as scheduled the day before surgery (around 3: 00PM): Albuterol Hfa (Ventolin Hfa), 2-4 PUFFS INH UD PRN for ASTHMA (if needed, and bring it with you to the hospital) Aspirin (Aspirin Ec), 81 MG PO QAM Bupropion HCl (Bupropion HCl Sr), 150 MG PO BID Buspirone Hcl (Buspirone Hcl), 15 MG PO BID Clonazepam (Klonopin), 1 MG PO TID PRN for Anxiety (if needed) Divalproex Sodium (Depakote), 2,000 MG PO AFTERNOON Levothyroxine Sodium (Levothyroxine Sodium), 175 MCG PO QAM Loratadine (Claritin), 10 MG PO QAM Metformin Hcl (Glucophage), 850 MG PO BID Polyethylene Glycol 3350 (Miralax), 17 GM PO BID Potassium Ext Rel (Klor-Con), 20 MEQ PO BID Ranitidine (Zantac), 150 MG PO BID Sennosides-Docusate Sodium (Senna Plus), 1 TAB PO BID Omeprazole (Prilosec), 20 MG PO QAM Tramadol HCl (Tramadol HCl), 50-100 MG PO Q4 PRN for Pain (if needed) - SKIP the following medications at 3:00 the day before surgery: Furosemide (Lasix), 40 MG PO QAM Lisinopril (Lisinopril), 10 MG PO QAM - Take the following medications as scheduled around 4-5:00 AM: Albuterol Hfa (Ventolin Hfa), 2-4 PUFFS INH UD PRN for ASTHMA (if needed, and bring it with you to the hospital) Benztropine Mesylate (Benztropine Mesylate), 2 MG PO HS Bupropion HCl (Bupropion HCl Sr), 150 MG PO BID Buspirone Hcl (Buspirone Hcl), 15 MG PO BID Clonazepam (Klonopin), 1 MG PO TID PRN for Anxiety (if needed) Divalproex Sodium (Depakote Etended-Release), 1,500 MG PO HS Loxapine Succinate (Loxapine), 100 MG PO HS Montelukast Sodium (Singulair), 10 MG PO HS Pravastatin Sodium (Pravachol), 20 MG PO HS Prednisone (Prednisone), 40 MG PO HS Ranitidine (Zantac), 150 MG PO BID Tramadol HCl (Tramadol HCl), 50-100 MG PO Q4 PRN for Pain (if needed) Ziprasidone Hcl (Geodon), 160 MG PO QDD If you have any questions please call us at [phone] or [phone] or [phone]
[2017-07-01 16:41] LABS: BASO % 0.1 %; BASO ABS # 0.01 K/uL (0-0.2); EOS % 0.9 %; EOS ABS # 0.11 K/uL (0-0.5); HEMATOCRIT 43.2 % (42-52); HEMOGLOBIN 14.4 g/dL (14.0-18.0); IG# 0.07 K/uL (0.00-0.02); LYMPH % 15.3 %; MEAN CELL VOLUME 90.4 fL (80-100); MEAN CORPUSCULAR HEMOGLOBIN 30.1 pg (25-34); MEAN CORPUSCULAR HGB CONC 33.3 g/dl (32-36); MONO % 7.1 %; MONO ABS # 0.84 K/uL (0.11-0.59); NEUT ABS # 8.92 K/uL (1.4-6.5); PLATELET COUNT 243 K/uL (130-400); RED CELL DISTRIBUTION WIDTH CV 13.8 % (11.5-14.5); RED CELL DISTRIBUTION WIDTH SD 45.6 fL (36.4-46.3); WHITE BLOOD COUNT 11.75 K/uL (4.8-10.8)
[2017-07-01 16:50] LABS: INR 0.9 (0.9-1.1); PTT PATIENT 25.8 SECONDS (21.0-31.0)
[2017-07-01 16:58] LABS: ALBUMIN 3.4 gm/dl (3.4-5.0); CALCIUM 9.4 mg/dl (8.5-10.1); CREATININE 1.14 mg/dl (0.60-1.40); POTASSIUM 4.6 mmol/L (3.5-5.1)
--- NOTE | 2017-07-01 17:03 | DIAGNOSTIC IMAGING REPORT ---
CHEST 2 VIEWS ROUTINE CLINICAL HISTORY: PAT preoperative evaluation COMPARISON STUDY: 05/11/2017 FINDINGS: Slight general prominence of the parenchymal markings of the mid to lower lung regions bilaterally. Infiltrative changes in the left base previously described are mildly improved. There is moderate residual. Mild pulmonary hyperaeration is present. IMPRESSION: Improving basilar infiltrates with mild left basilar residual. The above report was generated using voice recognition software. It may contain grammatical, syntax or spelling errors. Electronically signed by: Jean Marie Prather M.D. 07/01/2017 5:02 PM Dictated Date/Time: 07/01/2017 5:01 PM
--- NOTE | 2017-08-23 17:00 | History and Physical ---
History & Physical Date of Service Aug 23, 2017. History & Physical CHIEF COMPLAINT: Left knee pain. HISTORY OF PRESENT ILLNESS: This 57-year-old male presents to the clinic today for his preoperative history and physical. Patient's previous surgical date was canceled due to underlying health issues that he needed to have cleared before his PCP would clear him for surgery. The patient has a longstanding history of severe degenerative joint disease affecting the left knee joint. He also has a significant history of lymphedema in both lower extremities and has been receiving specialized treatment for the past several months with significant improvement in the swelling in his lower legs. The patient has failed all conservative measures with physical therapy and injections. Pain is usually 8 to 10/10, only mildly alleviated with the use of tramadol. He states that the knee pain is affecting his activities of daily living and makes ambulation very difficult. PAST SURGICAL HISTORY: Colonoscopy, shave biopsy of skin, left ACL reconstruction, tonsillectomy/adenoidectomy. PAST MEDICAL HISTORY: Anxiety, asthma, basal cell carcinoma, bipolar disorder, chronic kidney disease, depression, type 2 diabetes, lymphedema, gastroesophageal reflux disease, hypertension, hyperlipidemia, hypothyroidism, tricuspid regurgitation, mitral regurgitation and sleep apnea. FAMILY HISTORY: Father bipolar disorder, diabetes and schizophrenia. Sister bipolar disorder, diabetes and schizophrenia. ALLERGIES: The patient has no known drug allergies. CURRENT MEDICATIONS: Aspirin 81 mg oral enteric-coated tablet 1 tab daily, buspirone 30 mg oral tablet 1 tab twice daily, Depakote ER 2000 mg in the afternoon and 1500 mg at bedtime, diphenhydramine 25 mg oral tablet every 6 hours as needed, fluoxetine 20 mg oral tablet 3 caps daily, furosemide 20 mg oral tablet 1 tab daily, Geodon 80 mg oral capsule 1 cap twice daily, Klonopin 1 mg tablet 3 times daily as needed for anxiety, Klor-Con M20 oral tablet extended release 1 tab daily, levothyroxine 175 mcg oral tablet 1 tab daily, lisinopril 10 mg oral tablet 1 tab daily, loxapine 50 mg 3 capsules by mouth daily, magnesium oxide 400 mg oral tablet 1 tab daily, metformin 500 mg oral tablet 1 tab twice daily, MiraLax 17 g reconstituted in water daily, naproxen 500 mg oral tablet 1 tab twice daily as needed for pain, omeprazole 20 mg oral delayed release capsule 1 cap daily, Pravachol 20 mg oral tablet 1 tab daily, ranitidine 150 mg oral capsule 1 cap twice daily, senna +50 mg/8.6 mg oral tablet 1 to 2 tabs daily, Singulair 10 mg oral tablet 1 tab in the evening, Symbicort 160 mcg/4.5 mcg/inhalation aerosol 2 puffs inhaled twice daily, tramadol 50 mg oral tablet 1 to 2 tabs every 4 to 6 hours as needed for pain, Ventolin HFA 90 mcg/inhalation aerosol 2 puffs 4 times a day as needed for wheezing, Wellbutrin 100 mg oral tablet 1-1/2 tabs daily. SOCIAL HISTORY: The patient denies a history of smoking, alcohol or illicit drug use. PHYSICAL EXAMINATION: Skin: Patient's skin is normal in appearance. No open skin lesions or discharge. Eyes: Pupils are equal and reactive to light and accommodating. Extraocular movements are intact. Throat: Posterior pharynx clear with absence of edema, erythema or exudate. Cardiovascular exam: The patient has a regular rate and rhythm with no murmurs or gallops appreciated. Lungs: Auscultation of lung savage reveals clear breath sounds throughout with no wheezing, rales or rhonchi. Abdomen is obese, nondistended, nontender with normoactive bowel sounds. Extremities: Left knee, patient is able to extend 0 degrees and flex 120 degrees. He is neurovascularly intact in left lower extremity. He has a slightly positive Mary test, medial joint line tenderness when in the left knee is placed in a flexed position. There is audible crepitation with active passive range of motion. Moderate edema in both lower extremities extending from an area just distal to the knees into the feet. There are no open skin lesions or discharge noted. The patient's calves are soft but firm to palpation but nontender. He has appropriate dexterity of his ankles. Has mobility of his toes. Gait is abnormal due to pain experienced in the left knee. Is currently using a walker as an ambulatory aid. Peripheral pulses are faint but palpable. Capillary refill is less than 2 seconds. The patient is neurovascularly intact in left lower extremity. Neurological exam: Cranial nerves 2 through 12 are intact with no motor or sensory deficit. Psychological/general exam: Patient is alert and oriented x3 with proper grooming and hygiene. DIAGNOSES: Left knee osteoarthritis. PROCEDURE: Left total knee arthroplasty. RADIOGRAPHIC IMAGING: Most recent images of the left knee show severe degenerative change of the left knee with [id number] osteophyte formation and 10% varus alignment. PLAN: The patient is scheduled to undergo the procedure with Dr. Fabiano Alejandra at the [facility] on 08/27/2017. Risks and complications of the surgery such as infection, bleeding, pain, scarring, nerve and blood vessel damage, weakness, wound problems, stiffness, incomplete relief of symptoms, heart attack, stroke, , blood clots, embolism, arthritis as well as possibility of amputation of left lower extremity were explained to the patient by Dr. Alejandra prior to his last history and physical on July 02. The patient understands the risks and informed consent to perform the procedure was obtained. We did obtain an EKG at the patient's previous H&P. However, we will need to do a repeat CBC with diff, CMP, PT, INR, PTT, blood type and screen , urinalysis, urine culture and sensitivity and a chest x-ray. We have received preoperative clearance from the patient's primary care provider, Dr. 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 Patient received the necessary blood work and chest x-ray yesterday afternoon at the hospital. I receive the results of his chest x-ray this morning which showed a lower lobe infiltrate. One of our nurses contacted the patient and advised him to follow up with Dr. Carrillo and advised that he would need to be treated with an antibiotic and monitored by Dr. Carrillo and cleared medically a second time before we can proceed. I advised him that this should be done very promptly so that he can have the adequate amount of time to clear this infection from his lungs. Otherwise patient states he has a walker he will bring with him on the day of surgery. He continues to plan on going to a rehab facility for 2 weeks and possibly doing some in-home therapy afterward. He was again advised that we will provide him with a prescription for PT, OT referral to the rehab facility and provide him with prescriptions for pain medications as well as a blood thinner to prevent blood clots from occurring upon discharge from the hospital. The patient verbalized understanding of all information provided, thanked us for the care he has received and states if he has questions or concerns prior to her surgery date, he will contact the clinic accordingly.
[2017-08-27] VITALS (8 sets, daily range): BP systolic 93–157; BP diastolic 62–101; PULSE 77–98; TEMP 36–37.1; O2SAT 91–99
[~2017-08-27] VITALS: Ht 180.3 cm; Wt 104.7 kg
[~2017-08-27 07:34] MED LIST changes: +BUPIVACAINE 0.5 % 5 MG/1 ML PF 10ML VIAL ONE; +CEFAZOLIN 2000MG IV PUSH 15 ML IV SCH; +CeleBREX 200 MG CAP PO SCH; +LACTATED RINGER'S 1000ML 1,000 ML IV SCH; +LACTATED RINGER'S 1000ML 500 ML IV SCH; +LACTATED RINGER'S 1000ML IV SCH; +ROPIVACAINE 0.5% 5 MG/ML 30 ML VIAL ONE; +ROPIVACAINE 5MG/ML 30 ML 150 MG, BUPIVACAINE 0.5% MPF INJ 30 ML, EpINEphrine HCL INJ 0.... INFIL SCH; +SCOPOLAMINE 1.5 MG TDSY TD SCH
[2017-08-27] MEDS ORDERED: MIDAZOLAM HCL 1 MG/ML 2ML VIAL ONE ×2 (08:31)
[2017-08-27] MEDS ORDERED: FENTANYL CITRATE INJ 50 MCG/1 ML 2 ML VIAL ONE (08:31)
[2017-08-27] MEDS ORDERED: PHENYLEPHRINE 100MCG/ML 5ML SYR IV PRN (09:00)
[2017-08-27] MEDS ORDERED: EpHEDrine SULFATE INJ 50 MG/ML AMP IV PRN (09:00)
[2017-08-27] MEDS ORDERED: ONDANSETRON INJ 2 MG/ML 2 ML VIAL IV PRN ×2 (09:00→15:15)
[2017-08-27] MEDS ORDERED: HYDROmorphone INJ 2 MG/ML SYR/VIAL IV PRN (09:00)
[2017-08-27] MEDS ORDERED: ATROPINE SULFATE 0.1 MG/ML 5ML SYR IV PRN (09:00)
[2017-08-27] MEDS ORDERED: POVIDONE-IODINE OP SOLN 30 ML BTL ONE (09:06)
[2017-08-27] MEDS ORDERED: ORTHO JOINT ANESTHETIC ONE (09:06)
--- NOTE | 2017-08-27 09:08 | History & Physical Bridge Note ---
H&P Re-Evaluation Bridge Note: I have examined the patient, reviewed the History & Physical and in the interval since the performance of the History & Physical I have noted the following changes of clinical significance: Saw PCP yesterday and his Chest is clear.
[2017-08-27] MEDS: TRANEXAMIC ACID INJ 1,000 MG x 2 Bags IV SCH ×4 (10:03→16:54)
[2017-08-27] MEDS ORDERED: LIDOCAINE HCL 2% 2 ML VIAL (20MG/ML) ONE (10:47)
[2017-08-27] MEDS ORDERED: ONDANSETRON INJ 2 MG/ML 2 ML VIAL ONE ×2 (10:47→15:10)
[2017-08-27] MEDS ORDERED: PROPOFOL IV EMULSION 10 MG/ML 20 ML VIAL ONE ×4 (10:47→14:00)
--- NOTE | 2017-08-27 14:33 | [facility] Post Operative Brief Note ---
Immediate Operative Summary Operative Date August 27, 2017. Pre-Operative Diagnosis Left Knee Osteoarthritis Post-Operative Diagnosis Same as preoperative. Procedure(s) Performed Left Total Knee Arthroplasty, Cemented Surgeon Dr. Fabiano Alejandra Instrumentation Technologist Surgeon(s) Dr. Jose Miguel Alvares; Maritza العراقي PA-C Estimated Blood Loss 200ml Findings Consistent with Post-Op Diagnosis Fluids (cc crystalloids) 2400 Specimens A.) Left Knee Bone and Tissue Drains None Anesthesia Type MAC Spinal Regional Complication(s) none Disposition Disposition: Recovery Room / PACU (Stable)
--- NOTE | 2017-08-27 14:40 | [facility] Operative Report ---
Operative Report Operative Date August 27, 2017. Pre-Operative Diagnosis Left Knee Osteoarthritis Post-Operative Diagnosis Same as preoperative. Procedure(s) Performed Left Total Knee Arthroplasty, Cemented Surgeon Dr. Fabiano Alejandra Scaffolding Helper Surgeon(s) Dr. Jose Miguel Alvares; Maritza العراقي PA-C Estimated Blood Loss 200ml Findings Examined Under Anesthesia: ROM -- There was 0 degrees to 130 degrees of flexion Ligamentous examination -- revealed stable posterior drawer, Mary testing with 5 mm of anterior translation and soft endpoint, varus and valgus stress at 0 and 30 degrees opened 1-2 mm. Outerbridge Type IV changes of all 3 compartments. There were large osteophytes in both the femur and tibia. The large medial osteophyte appeared to have fractured and healed with fibrous tissue. Fluids 2400 Specimens A.) Left Knee Bone and Tissue Drains None Anesthesia Type MAC Spinal Regional Complication(s) none Disposition Recovery Room / PACU (Stable) Indications This is a 57-year-old male who has clinical and radiographic findings consistent with severe osteoarthritis of the a left knee. I recommended that a left total knee replacement be performed. The patient understands the risks of surgery, which include but not limited to: bleeding, infection, re-operation, damage to nerves and arteries, continued knee pain, knee stiffness, worsening edema, DVT, amputation, and . The patient understands all of these instructions and explanations, all of his questions have been satisfactorily addressed and the patient has elected to proceed. Informed consent was signed. Description of Procedure IMPLANTS: 1) Femur: Triathlon Total Stabilizer Femoral component #6, 18 x 100 mm Fluted stem (Ebony). 2) Tibia: Triathlon Tobias Tibial Baseplate #6, 14 x 100 mm Fluted Stem, 5mm Augment Half back x 2, 4mm Offset. 3) Insert: Triathlon X3 Total Stabilizer #6, 19 mm TS Tibial Insert. 4) Patella: Triathlon X3 A35 x 10 mm. 5) Cement: Simplex with Tobramycin x 3. Procedure: The patient was taken to the Operating Room and placed in the supine position after spinal and adductor canal nerve block was administered. My initials and a multidisciplinary time-out were used to identify the left leg as the correct operative limb. A tourniquet was placed high in the thigh. Prior to the incision, 2 grams of intravenous Ancef were given. The left leg was then prepped and draped in a standard sterile fashion. An Esmarch was used to exsanguinate the leg and the tourniquet was inflated to 250 mmHg. The planned mid-line 20 cm incision incorporating a portion of his previous incision distally was created exposing the extensor mechanism. The medial parapatellar arthrotomy was made and the patella was everted. There was previous Ethibond sutures noted along the arthrotomy, which were removed. The patella was addressed first. It was prepared by reaming from 26 mm down to 15 mm. An A35 button was found to fit best. The peg holes were made in the standard fashion. The femur was addressed next and the guide marcelino was placed intramedullary. The initial cutting block was placed with 5 degrees of valgus and removing 10 mm for the anterior cut. The cut was made and the 4-in-1 cutting block for a size 6 femur was placed. These cuts were made in the standard fashion. The canal was then reamed up to size 18 mm. Then the jig using the intramedullary canal was used to create the box. The trial femur with stem was placed. Our attention was then drawn to the tibia cut with the external cutting guide, taking 9mm from the lateral high side. The medial osteophytes were removed with a rongeur. A #6 Tibial baseplate fit well. A trial with a 22 mm spacer showed decent stability in both flexion and extension. The tibia was reamed and the baseplate offset was determined in the standard fashion. While attempting to place the baseplate it appeared to be sitting flush laterally, but medially was elevated more than desired. Intramedullary referencing was used to fine-tune the tibial cut. And wanting to use a smaller poly-, 5 mm augments were placed medially and laterally. There was excellent stability with a 19 mm spacer in both flexion and extension. Range of motion of 0-130 degrees. The tourniquet was deflated. All the trial components were tested again, with good stability and thumbs free tracking of the patella. All components were removed. Hemostasis was obtained. 90 ml of total knee cocktail were injected into the soft tissues and periosteum. After a 35 minute break, the limb was exsanguinated again and the tourniquet was re-inflated. All surfaces were copiously irrigated prior to placement of the components. The femoral component was placed first followed by the Tibial baseplate and a 19 mm and strain trial poly-was inserted. The patellar button was placed using the same batch of cement. The range of motion and stability were unchanged. A Betadine ophthalmic diluted solution was placed within the wound while the cement cured. It was then copiously irrigated out. Once the cement had cured, the constrained 19 mm X3 poly was placed. The extensor mechanism was closed with 1-0 and 0 Vicryl with the knee bent approximately 60 degrees in a standard fashion. The subcutaneous layer was closed with 3-0 Vicryl. The skin was closed with matty. The limb was cleaned and dried. Xeroform was placed over top followed by 4x4's, ABDs, sterile Webril, and a foot to thigh Joe bandage. The patient was then transferred to the Recovery Room in stable condition. The sponge and needle counts were correct. POST-OP INSTRUCTIONS: The patient will be WBAT. The patient will be admitted to the hospital. The patient will use the knee immobilizer when ambulating and standing until good quad control is achieved. Labs will be obtained during her stay. DVT prophylaxis will included Lovenox for 3 weeks then switching to aspirin for 3 more weeks, TEDs, and mechanical foot pumps. I attest to the content of the Intraoperative Record and any orders documented therein. Any exceptions are noted below.
[2017-08-27] MEDS ORDERED: MAGNESIUM HYDROXIDE SUSP 30 ML UDC PO PRN (15:15)
[2017-08-27] MEDS ORDERED: CLONAZEPAM 1 MG TAB PO PRN (15:15)
[2017-08-27] MEDS ORDERED: CEFAZOLIN IV 2,000 MG in DEXTROSE 5% 50ML 50 ML IV SCH (15:15)
[2017-08-27] MEDS ORDERED: ALBUTEROL HFA 8 GM INHALER INH PRN (15:15)
[2017-08-27] MEDS ORDERED: DiphenhydrAMINE HCL 50 MG/ML VIAL IV PRN (15:15)
[2017-08-27] MEDS ORDERED: SOD PHOSPHATE/SOD BIPHOSPHATE ENEMA 132 ML BTL PR PRN (15:15)
[2017-08-27] MEDS ORDERED: BISACODYL 10 MG SUPP PR PRN (15:15)
--- NOTE | 2017-08-27 15:43 | Anesthesiology Progress Note ---
Anesthesia Post Op Note Date & Time August 27, 2017 at 15:42 Vital Signs Pain Intensity: 0 Vital Signs Past 12 Hours Date Time Temp Pulse Resp B/P (MAP) Pulse Ox O2 Delivery O2 Flow Rate FiO2 08/27/17 15:15 36.3 92 16 139/84 96 Oxymask 08/27/17 15:05 83 16 136/82 98 Oxymask 08/27/17 14:56 36.5 89 16 116/99 100 Oxymask 7 08/27/17 09:20 76 20 143/93 (110) 96 Room Air 08/27/17 08:48 36.7 85 18 157/101 96 Room Air Notes Mental Status: alert / awake / arousable, participated in evaluation Pt Amnestic to Procedure: Yes Nausea / Vomiting: adequately controlled Pain: adequately controlled Airway Patency, RR, SpO2: stable & adequate BP & HR: stable & adequate Hydration State: stable & adequate Neuraxial Anesthesia: was administered, sensory block is resolving Anesthetic Complications: no major complications apparent
--- NOTE | 2017-08-27 15:49 | DIAGNOSTIC IMAGING REPORT ---
TWO VIEWS LEFT KNEE CLINICAL HISTORY: Postoperative examination. FINDINGS: AP and crosstable lateral portable views of the left knee are obtained. A left knee arthroplasty is in near anatomic alignment. There are long tibial and femoral stems. There has been undersurface remodeling of the patella. No acute fracture is seen. There are expected postoperative changes around the knee including skin clips, soft tissue edema, and subcutaneous gas. IMPRESSION: Expected postoperative changes status post left knee arthroplasty. No acute fracture is seen. Electronically signed by: Rome Brumfield M.D. 08/27/2017 3:48 PM Dictated Date/Time: 08/27/2017 3:47 PM
[2017-08-27] MEDS ORDERED: CHECK SCOPOLAMINE PATCH PLACEMENT SCH (16:00)
[2017-08-27] MEDS: CARBOHYDRATES FOR HYPOGLYCEMIA PO PRN (17:15)
[2017-08-27] MEDS ORDERED: DEXTROSE 50% 50 ML SYR IV PRN (17:30)
[2017-08-27] MEDS ORDERED: GLUCOSE 10 TABS/TUBE PO PRN (17:30)
[2017-08-27] MEDS ORDERED: GLUCAGON FOR INJ 1 MG VIAL IM PRN (17:30)
[2017-08-27] MEDS: GLUCOSE 40% GEL 15 GM TUBE PO PRN ×2 (17:40→18:28)
[2017-08-27] MEDS ORDERED: DIVA500T59 PO (18:16)
[2017-08-27] MEDS ORDERED: SYMIN INH (18:16)
[2017-08-27] MEDS ORDERED: BSP15 PO (18:16)
[2017-08-27] MEDS: SODIUM CHLORIDE 0.9% 1000ML 1,000 ML IV SCH (18:29)
[2017-08-27] MEDS ORDERED: CARBOHYDRATES FOR HYPOGLYCEMIA PO PRN (18:30)
[2017-08-27] MEDS: CEFAZOLIN IV 2,000 MG in SYRINGE 0 ML IV SCH (18:30)
[2017-08-27] MEDS: ZIPRASIDONE 80 MG CAP PO SCH (18:31)
[2017-08-27] MEDS: FERROUS GLUCONATE 324 MG TAB PO SCH (18:31)
[2017-08-27] MEDS ORDERED: ARTIFICIAL TEARS OP SOLN OP PRN (18:45)
--- NOTE | 2017-08-27 18:48 | Medical Consult ---
Consultation Date of Consultation: August 27, 2017. Attending Physician: Fabiano Alejandra MD Reason for Consultation: Medical management History of Present Illness This is a 57 y/o male with a history of HTN, HLD, DM II, hypothyroidism, anxiety , depression, bipolar disorder, asthma, lymphedema, and GERD who presents s/p left TKA with Dr. Alejandra on 08/27 for medical management. He denies any acute complaints. He has a Berman in place and has not yet eaten postop. He reports passing gas but denies a bowel movement. The patient has been hypoglycemic postop. His BSGs have actually trended down despite receiving orange juice and 2 tubes of glucose gel. The patient remains asymptomatic, however, despite a BSG of 38 while I was at bedside. Patient kept his eyes closed during the visit due to "eye irritation" but was very talkative. The patient denies fevers , chills, sweats, chest pain, palpitations, claudication, cough, wheezing, shortness of breath, nausea, vomiting, abdominal pain, dysuria, hematuria, urinary retention, paralysis, weakness, numbness and tingling. Past Medical/Surgical History Medical Problems: (1) Abrasion of knee, right Status: Acute (2) Acidosis Status: Acute (3) Acute paranoia Status: Acute (4) Anxiety Status: Acute (5) Anxiety Status: Acute (6) Bronchitis Status: Acute (7) Chronic acquired lymphedema Status: Acute (8) Constipation Status: Acute (9) Dehydration Status: Acute (10) Erythema multiforme Status: Acute (11) Fall Status: Acute (12) Fall Status: Acute (13) Frequent falls Status: Acute (14) History of pneumonia Status: Acute (15) Injury of left toe Status: Acute (16) Left knee pain Status: Acute (17) Nail avulsion, toe Status: Acute (18) Nausea & vomiting Status: Acute (19) Paranoia Status: Acute (20) Pill esophagitis Status: Acute (21) Pneumonia involving right lung Status: Acute (22) Precordial chest pain Status: Acute (23) Rash Status: Acute (24) Suicidal ideation Status: Acute (25) Vomiting Status: Acute HTN HLD DM II Hypothyroidism Depression Bipolar disorder Asthma GERD Family History Diabetes mellitus Gallbladder disease Hypertension Social History Smoking Status: Never Smoker Smokeless Tobacco Use: No Alcohol Use: none Drug Use: none Marital Status: single Housing Status: lives alone (with home health) Occupation Status: disabled Allergies Coded Allergies: No Known Allergies (Verified , 08/27/17) Current Inpatient Medications Current Inpatient Medications Medications (Trade) Dose Ordered Sig/Daniel Route Start Time Stop Time Status Last Admin Dose Admin Lactated Ringer's 1,000 ml @ 15 mls/hr Q24H IV 08/27/17 06:00 08/28/17 05:59 Lactated Ringer's 1,000 ml @ 60 mls/hr [id number] IV 08/27/17 06:00 08/27/17 22:39 Sodium Chloride 1,000 ml @ 100 mls/hr Q10H IV 08/27/17 16:45 08/28/17 16:44 Celecoxib (CeleBREX CAP) 200 mg BID PO 08/27/17 21:00 09/26/17 20:59 Oxycodone HCl (Roxicodone Immediate Rel Tab) 1 TABLET FOR PAIN RATING... Q4H PRN PO 08/27/17 15:15 09/10/17 15:14 Morphine Sulfate (MoRPHine SULFATE INJ) 2 MG FOR PAIN 1-5 4MG ... Q2HWA PRN IV 08/27/17 15:15 09/10/17 15:14 Magnesium Hydroxide (Milk Of Magnesia Susp) 30 ml Q6H PRN PO 08/27/17 15:15 09/26/17 15:14 Bisacodyl (Dulcolax Supp) 10 mg DAILY PRN [place] 08/27/17 15:15 09/26/17 15:14 Sodium Biphosphate/ Sodium Phosphate (Fleet Enema) 132 ml DAILY PRN [place] 08/27/17 15:15 09/26/17 15:14 Docusate Sodium (coLACE CAP) 100 mg BID PO 08/27/17 21:00 09/26/17 20:59 Diphenhydramine HCl (Benadryl Cap) 25 mg Q8H PRN PO 08/27/17 15:15 09/26/17 15:14 Diphenhydramine HCl (Benadryl Inj) 25 mg Q8H PRN IV 08/27/17 15:15 09/26/17 15:14 Ondansetron HCl (Zofran Inj) 4 mg Q6H PRN IV 08/27/17 15:15 09/26/17 15:14 Ferrous Gluconate (Ferrous Gluconate Tab) 324 mg TIDM PO 08/27/17 17:45 09/26/17 17:59 Pantoprazole Sodium (Protonix Tab) 40 mg QAM PO 08/28/17 09:00 09/27/17 08:59 Enoxaparin Sodium (Lovenox Inj) 30 mg Q12H SQ 08/28/17 08:00 09/27/17 07:59 Albuterol (Ventolin Hfa Inhaler) 2 PUFFS PRN DIRECTED Q6H PRN INH 08/27/17 15:15 09/26/17 15:14 Benztropine Mesylate (Cogentin Tab) 2 mg HS PO 08/27/17 21:00 09/26/17 20:59 Bupropion HCl (Wellbutrin-Sr Tab) 150 mg BID PO 08/27/17 21:00 09/26/17 20:59 Clonazepam (Klonopin Tab) 1 mg TID PRN PO 08/27/17 15:15 09/26/17 15:14 Divalproex Sodium (Depakote Extended Rel Tab) 2,000 mg BID PO 08/27/17 21:00 09/26/17 20:59 Furosemide (Lasix Tab) 40 mg QAM PO 08/28/17 09:00 09/27/17 08:59 Levothyroxine Sodium (Synthroid Tab) 175 mcg DAILYBB PO 08/28/17 06:00 09/27/17 05:59 Lisinopril (Zestril Tab) 10 mg QAM PO 08/28/17 09:00 09/27/17 08:59 Metformin HCl (Glucophage Tab) 850 mg BID PO 08/27/17 21:00 09/26/17 20:59 Montelukast Sodium (Singulair Tab) 10 mg HS PO 08/27/17 21:00 09/26/17 20:59 Potassium Chloride (Klor-Con Tab) 20 meq BID PO 08/27/17 21:00 09/26/17 20:59 Pravastatin Sodium (Pravachol Tab) 20 mg HS PO 08/27/17 21:00 09/26/17 20:59 Prednisone (PredniSONE TAB) 40 mg HS PO 08/27/17 21:00 09/26/17 20:59 Ziprasidone (Geodon Cap) 160 mg QDD PO 08/27/17 17:45 09/26/17 17:59 Buspirone HCl (BusPAR TAB) 15 mg BID PO 08/27/17 21:00 09/26/17 20:59 Miscellaneous Information (Order Awaiting Action) 1 ea QS N/A 08/28/17 00:00 09/27/17 00:00 Cefazolin Sodium 2000 mg/Syringe 15 ml @ 3.75 mls/ min Q8H IV 08/27/17 18:00 08/28/17 02:03 Glucose (Glucose 40% Gel) 15-30 GRAMS 15 GRAMS... UD PRN PO 08/27/17 17:30 09/26/17 17:29 08/27/17 17:40 30 GM Glucose (Glucose Chew Tab) 4-8 Tablets 4 Tabl... UD PRN PO 08/27/17 17:30 09/26/17 17:29 Dextrose (Dextrose 50% 50ML Syringe) 25-50ML 25ML FOR ... UD PRN IV 08/27/17 17:30 09/26/17 17:29 08/27/17 18:04 50 ML Glucagon (Glucagon Inj) 1 mg UD PRN IM 08/27/17 17:30 09/26/17 17:29 Carbohydrates (Carbohydrates For Hypoglycemia) 15-30 GRAMS 15 grams if BSG 54-69... PRN PRN PO 08/27/17 17:30 09/26/17 17:29 08/27/17 17:15 30 GM Review of Systems See HPI for pertinent positives and negatives. All other systems reviewed and negative. Physical Exam Date Time Temp Pulse Resp B/P (MAP) Pulse Ox O2 Delivery O2 Flow Rate FiO2 08/27/17 17:59 36.9 84 16 127/79 (95) 93 Room Air 08/27/17 17:03 36.4 83 16 127/82 (97) 94 Room Air 08/27/17 16:30 36.5 77 16 139/89 (106) 99 Room Air 08/27/17 16:00 36.5 98 16 137/82 (100) 96 Room Air 08/27/17 15:40 89 16 139/89 99 Oxymask 08/27/17 15:30 88 16 137/80 97 Oxymask 08/27/17 15:15 36.3 92 16 139/84 96 Oxymask 08/27/17 15:05 83 16 136/82 98 Oxymask 08/27/17 14:56 36.5 89 16 116/99 100 Oxymask 7 08/27/17 09:20 76 20 143/93 (110) 96 Room Air 08/27/17 08:48 36.7 85 18 157/101 96 Room Air General appearance: +Obese. Well-developed, well-nourished, no apparent distress Head: Normocephalic, atraumatic Eyes: Normal inspection, PERRL, EOMI ENT: Normal ENT inspection, hearing grossly normal, pharynx normal Neck: Supple, no JVD, trachea midline Respiratory/Chest: Lungs clear to auscultation, normal breath sounds, no respiratory distress Cardiovascular: Regular rate & rhythm, no gallop, no murmur Abdomen/GI: Normal bowel sounds, non-tender, soft Extremities/Musculoskeletal: +Lymphedema with significant pedal edema. LLE wrapped in denise bandage. Normal inspection, no calf tenderness Neurological/Psych: Alert, normal mood/affect, oriented x 3 Skin: Normal color, warm/dry, no rash Laboratory Results Last 24 Hours Test 08/27/17 08:06 08/27/17 17:35 Bedside Glucose 107 mg/dl 46 mg/dl Assessment & Plan 57 y/o male with a history of HTN, HLD, DM II, hypothyroidism, anxiety, depression, bipolar disorder, asthma, lymphedema, and GERD who presents s/p left TKA with Dr. Alejandra on 08/27 for medical management. S/p L TKA -Pain management, DVT prophylaxis, and PT/OT as per primary team -AVSS HTN, HLD--stable -Hold lisinopril for now until renal function checked/stable -Continue pravastatin 20 mg PO qd DM II--last HgbA1c 5.7 on 06/18/17 -Hold metformin -Pt hypoglycemic postop as low as 38 even after orange juice and 2 tubes glucose gel. Received 50 mL D50, BSG then 175 -Will order more frequent BSG checks overnight (q4h) to monitor for further hypoglycemia, then resume ACHS -Insulin sliding scale -Check BSGs q ac and qhs Hypothyroidism -Continue Synthroid 175 mcg PO qd Anxiety, depression, bipolar -Continue Wellbutrin 150 mg PO BID, BuSpar 30 mg PO BID, clonazepam 2 mg PO hs, Depakote 2000 mg afternoon and 1500 mg evening, loxapine 100 mg PO qd (pt brought), Geodon 160 mg PO hs, benztropine 2 mg PO hs Asthma -Continue Symbicort BID, Singulair Lymphedema, chronic venous insufficiency -Hold Lasix for now GERD -Continue PPI Eye irritation -Artificial tears prn Thank you for this consultation. We will continue to follow.
[2017-08-27] MEDS: OXYCODONE HCL IR 5 MG TAB (IMMEDIATE RELEASE) PO PRN (19:44)
[2017-08-27] MEDS ORDERED: METFORMIN HCL 850 MG TAB PO SCH (21:00)
[2017-08-27] MEDS ORDERED: BusPIRone 15 MG TAB PO SCH (21:00)
[2017-08-27] MEDS ORDERED: DIVALPROEX 500 MG EXTENDED RELEASE TAB PO SCH (21:00)
[2017-08-27] MEDS: INSULIN ASPART 100 UNITS/ML 3 ML PEN SC SCH (21:32)
[2017-08-27] MEDS: CLONAZEPAM 1 MG TAB PO SCH (21:35)
[2017-08-27] MEDS: BusPIRone 15 MG TAB PO SCH (21:35)
[2017-08-27] MEDS: BUDESONIDE/FORMOTEROL FUMARATE 160/4.5 60 PUFFS/INHALER INH SCH (21:35)
[2017-08-27] MEDS: MONTELUKAST SOD 10 MG TAB PO SCH (21:36)
[2017-08-27] MEDS: BuPROPion SR 150 MG TABCR PO SCH (21:36)
[2017-08-27] MEDS: PRAVASTATIN SOD 20 MG TAB PO SCH (21:36)
[2017-08-27] MEDS: DOCUSATE SODIUM/SENNA 50/8.6MG TAB PO SCH (21:37)
[2017-08-27] MEDS: POLYETHYLENE (MIRALAX) 17 GM PACK PO SCH (21:37)
[2017-08-27] MEDS: BENZTROPINE MESYLATE 1 MG TAB PO SCH (21:38)
[2017-08-27] MEDS: DIVALPROEX SODIUM 500 MG DELAY RELEASE TAB PO SCH (21:38)
[2017-08-27] MEDS: DOCUSATE SODIUM 100 MG CAP PO SCH (21:39)
[2017-08-27] MEDS: POTASSIUM CHLORIDE 20 MEQ TABCR PO SCH (21:39)
[2017-08-27] MEDS: CeleBREX 200 MG CAP PO SCH (21:39)
[2017-08-27] MEDS: LOXAPINE SUCCINATE 50 MG CAP PO SCH (21:40)
[2017-08-28] VITALS (7 sets, daily range): BP systolic 110–133; BP diastolic 71–86; PULSE 97–109; TEMP 36.5–38.9; O2SAT 92–95
[2017-08-28] MEDS: CEFAZOLIN IV 2,000 MG in SYRINGE 0 ML IV SCH (02:15)
[2017-08-28] MEDS: OXYCODONE HCL IR 5 MG TAB (IMMEDIATE RELEASE) PO PRN ×4 (02:24→17:47)
[2017-08-28] MEDS: SODIUM CHLORIDE 0.9% 1000ML 1,000 ML IV SCH ×2 (04:47→12:55)
[2017-08-28] MEDS: MoRPHine SULFATE 2 MG/ML CARP IV PRN ×2 (04:47→15:57)
[2017-08-28] MEDS: LEVOTHYROXINE 175 MCG TAB PO SCH (06:00)
[2017-08-28 06:20] LABS: HEMATOCRIT 35.5 % (42-52); HEMOGLOBIN 11.7 g/dL (14.0-18.0); MEAN CELL VOLUME 90.6 fL (80-100); MEAN CORPUSCULAR HEMOGLOBIN 29.8 pg (25-34); PLATELET COUNT 166 K/uL (130-400); RED CELL DISTRIBUTION WIDTH CV 14.6 % (11.5-14.5); WHITE BLOOD COUNT 15.41 K/uL (4.8-10.8)
[2017-08-28 06:45] LABS: CALCIUM 7.8 mg/dl (8.5-10.1); CREATININE 1.28 mg/dl (0.60-1.40)
[2017-08-28] MEDS ORDERED: ACETAMINOPHEN 500 MG TAB PO PRN (07:45)
--- NOTE | 2017-08-28 08:42 | Orthopedic Progress Note ---
Orthopedic Progress Note Date of Service August 28, 2017. Subjective Post OP Day: 1 Reports: feeling well, pain controlled w PO medications, Denies: complaints, chest pain, SOB, nausea / vomiting, light headedness, calf pain Objective calves soft nontender, N/V intact, capillary refill less than 2 sec., dressing C /D/I, A&O x3, toes mobile, CMS intact 2+ left lower extremity lymphedema. Similar to pre-op. Date Time Temp Pulse Resp B/P (MAP) Pulse Ox O2 Delivery O2 Flow Rate FiO2 08/28/17 07:36 37.7 08/28/17 07:15 38.9 109 18 110/71 (84) 94 Room Air 08/28/17 03:05 36.8 107 16 133/84 (100) 92 Room Air 08/27/17 23:30 91 Room Air 7.0 08/27/17 23:07 37.1 90 14 93/62 (72) 91 Room Air 08/27/17 19:03 36.0 93 16 130/83 (99) 97 Room Air 08/27/17 17:59 36.9 84 16 127/79 (95) 93 Room Air 08/27/17 17:03 36.4 83 16 127/82 (97) 94 Room Air 08/27/17 16:30 36.5 77 16 139/89 (106) 99 Room Air 08/27/17 16:00 96 Room Air 08/27/17 16:00 36.5 98 16 137/82 (100) 96 Room Air 08/27/17 16:00 96 Room Air 08/27/17 15:40 89 16 139/89 99 Oxymask 08/27/17 15:30 88 16 137/80 97 Oxymask 08/27/17 15:15 36.3 92 16 139/84 96 Oxymask 08/27/17 15:05 83 16 136/82 98 Oxymask 08/27/17 14:56 36.5 89 16 116/99 100 Oxymask 7 08/27/17 09:20 76 20 143/93 (110) 96 Room Air 08/27/17 08:48 36.7 85 18 157/101 96 Room Air Laboratory Results 24 Hours: Test 08/28/17 06:06 Hematocrit 35.5 % Hemoglobin 11.7 g/dL Assessment & Plan Assessment: S/P left total knee replacement POD 1 Plan: 1) WBAT with assistive device and immoblizer to left knee 2) PT/OT evaluation today 3) Continue DVT prophylaxis: HERNAN hose, ankle pumps, Lovenox 30mg SQ BID x 3wks, then 325mg ASA bid x 3wks 4) Continue Diabetic Diet 5) Thanks for Medical Consult: monitor BS, per medicine metformin on hold due to hypoglycemic BS 40 on POD 0. Per nurse BS was 106 this am. 6) Berman Dcd this AM 7) Continue pain control meds prn 8) Continue to monitor dressing with dressing change scheduled POD 2 9) Road Tester to see patient today for DC planning. Pt prefers [facility]. I, Dr. Alejandra, saw and examined the patient and agree with the above findings and plan of care. Discharge Planning Discharge Planning: longterm facility Pain Management: Percocet DVT Prophylaxis: TEDs, Lovenox Therapy: Physical Therapy, Occupational Therapy
[2017-08-28] MEDS: DOCUSATE SODIUM/SENNA 50/8.6MG TAB PO SCH ×2 (08:54→20:38)
[2017-08-28] MEDS: ENOXAPARIN 30 MG/0.3 ML SYR SQ SCH ×2 (08:54→20:39)
[2017-08-28] MEDS: BUDESONIDE/FORMOTEROL FUMARATE 160/4.5 60 PUFFS/INHALER INH SCH ×2 (08:54→20:37)
[2017-08-28] MEDS: FERROUS GLUCONATE 324 MG TAB PO SCH ×3 (08:54→17:46)
[2017-08-28] MEDS: BuPROPion SR 150 MG TABCR PO SCH ×2 (08:55→20:38)
[2017-08-28] MEDS: POTASSIUM CHLORIDE 20 MEQ TABCR PO SCH (08:56)
[2017-08-28] MEDS: POLYETHYLENE (MIRALAX) 17 GM PACK PO SCH ×2 (08:56→20:38)
[2017-08-28] MEDS: CeleBREX 200 MG CAP PO SCH ×2 (08:57→20:38)
[2017-08-28] MEDS: DOCUSATE SODIUM 100 MG CAP PO SCH ×2 (08:57→20:38)
[2017-08-28] MEDS: BusPIRone 15 MG TAB PO SCH ×2 (08:57→20:38)
[2017-08-28] MEDS: PANTOprazole SOD 40 MG TAB PO SCH (08:58)
[2017-08-28] MEDS ORDERED: LISINOPRIL 10 MG TAB PO SCH (09:00)
[2017-08-28] MEDS ORDERED: FUROSEMIDE 40 MG TAB PO SCH (09:00)
[2017-08-28] MEDS: INSULIN ASPART 100 UNITS/ML 3 ML PEN SC SCH ×4 (09:02→20:37)
[2017-08-28] MEDS: DIVALPROEX 500 MG EXTENDED RELEASE TAB PO SCH (12:07)
[2017-08-28] MEDS: ZIPRASIDONE 80 MG CAP PO SCH (18:22)
[2017-08-28] MEDS: MONTELUKAST SOD 10 MG TAB PO SCH (20:38)
[2017-08-28] MEDS: BENZTROPINE MESYLATE 1 MG TAB PO SCH (20:38)
[2017-08-28] MEDS: LOXAPINE SUCCINATE 50 MG CAP PO SCH (20:38)
[2017-08-28] MEDS: CLONAZEPAM 1 MG TAB PO SCH (20:38)
[2017-08-28] MEDS: DIVALPROEX SODIUM 500 MG DELAY RELEASE TAB PO SCH (20:38)
[2017-08-28] MEDS: PRAVASTATIN SOD 20 MG TAB PO SCH (20:38)
--- NOTE | 2017-08-28 21:11 | Progress Note ---
Subjective Date of Service: August 28, 2017. Subjective Pt evaluation today including: conversation w/ patient, physical exam, chart review, lab review, review of inpatient medication list Pain: left knee only PO Intake: normal Voiding: no voiding problems pt with fever this am but during such he did not feel unwell reports no cough, skin rash, myalgias/chills, or dysuria he was pleased that he walked more today with PT anticipates going to [facility] at d/c for rehab Problem List Medical Problems: (1) Abrasion of knee, right Status: Acute (2) Acidosis Status: Acute (3) Acute paranoia Status: Acute (4) Anxiety Status: Acute (5) Anxiety Status: Acute (6) Bronchitis Status: Acute (7) Chronic acquired lymphedema Status: Acute (8) Constipation Status: Acute (9) Dehydration Status: Acute (10) Erythema multiforme Status: Acute (11) Fall Status: Acute (12) Fall Status: Acute (13) Frequent falls Status: Acute (14) History of pneumonia Status: Acute (15) Injury of left toe Status: Acute (16) Left knee pain Status: Acute (17) Nail avulsion, toe Status: Acute (18) Nausea & vomiting Status: Acute (19) Paranoia Status: Acute (20) Pill esophagitis Status: Acute (21) Pneumonia involving right lung Status: Acute (22) Precordial chest pain Status: Acute (23) Rash Status: Acute (24) Suicidal ideation Status: Acute (25) Vomiting Status: Acute Review of Systems Constitutional: + fever, No chills, No sweats Respiratory: No cough Cardiac: No chest pain, No orthopnea Abdomen: No pain, No diarrhea Objective Vital Signs Date Time Temp Pulse Resp B/P (MAP) Pulse Ox O2 Delivery O2 Flow Rate FiO2 08/28/17 15:50 36.5 99 16 131/86 (101) 94 Room Air 08/28/17 15:50 Room Air 08/28/17 12:10 36.8 08/28/17 12:10 97 18 120/78 (92) 94 08/28/17 11:11 105 95 08/28/17 07:36 37.7 08/28/17 07:25 Room Air 08/28/17 07:15 38.9 109 18 110/71 (84) 94 Room Air 08/28/17 03:05 36.8 107 16 133/84 (100) 92 Room Air 08/27/17 23:30 91 Room Air 7.0 08/27/17 23:07 37.1 90 14 93/62 (72) 91 Room Air Physical Exam General Appearance: no apparent distress ENT: pharynx normal Neck: no JVD Respiratory/Chest: lungs clear, no respiratory distress, no accessory muscle use Cardiovascular: regular rate, rhythm, no gallop, no murmur Abdomen: normal bowel sounds, non tender, soft, no organomegaly Extremities: no pedal edema (right leg), + pedal edema, + swelling (LLE) Neurologic/Psychiatric: alert, oriented x 3 Comments: musculo - left knee in large dressing Laboratory Results Last 24 Hours Test 08/27/17 23:57 08/28/17 04:03 08/28/17 06:06 08/28/17 08:09 Bedside Glucose 78 mg/dl 76 mg/dl 106 mg/dl White Blood Count 15.41 K/uL Red Blood Count 3.92 M/uL Hemoglobin 11.7 g/dL Hematocrit 35.5 % Mean Corpuscular Volume 90.6 fL Mean Corpuscular Hemoglobin 29.8 pg Mean Corpuscular Hemoglobin Concent 33.0 g/dl RDW Standard Deviation 48.0 fL RDW Coefficient of Variation 14.6 % Platelet Count 166 K/uL Mean Platelet Volume 9.0 fL Sodium Level 134 mmol/L Potassium Level 5.0 mmol/L Chloride Level 103 mmol/L Carbon Dioxide Level 26 mmol/L Anion Gap 5.0 mmol/L Blood Urea Nitrogen 11 mg/dl Creatinine 1.28 mg/dl Est Creatinine Clear Calc Drug Dose 76.5 ml/min Estimated GFR () 70.5 Estimated GFR (Non- 60.9 BUN/Creatinine Ratio 8.9 Random Glucose 119 mg/dl Calcium Level 7.8 mg/dl Magnesium Level 2.0 mg/dl Hepatitis C Antibody Screen NEG Test 08/28/17 12:14 08/28/17 17:20 08/28/17 20:36 Bedside Glucose 118 mg/dl 102 mg/dl 105 mg/dl Assessment and Plan 57yo male - 1. POD #1, s/p left TKR - DVT proph, dispo planning, pain control - defer to primary ortho team. 2. fever - this may all be post-op inflammatory reaction; no signs/symptoms of infection by history or on exam today; fever resolved promptly this AM without recurrence. Follow carefully. 3. mild acute blood loss anemia - not symptomatic; Fe supplementation at d/c. 4. T2DM - 2nd to novolog w/ meals; he has excellent control as outpatient. Would d/c the insulin - no need for the tight control he had yesterday. Follow carefully. 5. hypothyroidism - cont synthroid. 6. bipolar d/o - cont all outpatient meds 7. lymphedema, left leg - chronic. 8. HTN - cont to hold outpatient meds; BPs controlled w/o them. 9. asthma - w/o exacerbation - cont outpatient meds. follow temp curves carefully Continued [facility] stay due to: multiple IV medications needed Discharge planning: rehab hospital
[2017-08-29] MEDS: LEVOTHYROXINE 175 MCG TAB PO SCH (05:40)
[2017-08-29] MEDS: OXYCODONE HCL IR 5 MG TAB (IMMEDIATE RELEASE) PO PRN (05:41)
--- NOTE | 2017-08-29 06:57 | Orthopedic Progress Note ---
Orthopedic Progress Note Date of Service August 29, 2017. Subjective Post OP Day: 2 Reports: feeling well, complaints (Urinary incontinence last evening), pain controlled w PO medications, Denies: chest pain, SOB, nausea / vomiting, calf pain Objective calves soft nontender, N/V intact, incision C/D/I, A&O x3 Date Time Temp Pulse Resp B/P (MAP) Pulse Ox O2 Delivery O2 Flow Rate FiO2 08/28/17 23:28 37.5 105 14 128/82 (97) 93 Nasal Cannula 4.0 08/28/17 23:15 Room Air 08/28/17 15:50 36.5 99 16 131/86 (101) 94 Room Air 08/28/17 15:50 Room Air 08/28/17 12:10 36.8 08/28/17 12:10 97 18 120/78 (92) 94 08/28/17 11:11 105 95 08/28/17 07:36 37.7 08/28/17 07:25 Room Air 08/28/17 07:15 38.9 109 18 110/71 (84) 94 Room Air Laboratory Results 24 Hours: Test 08/29/17 04:44 Assessment & Plan Assessment: S/P left total knee replacement POD 2 Plan: 1) WBAT with assistive device and immoblizer to left knee, once good quad control may d/c immobilizer. Does not need to where immobilizer in bed or once sitting. 2) PT/OT 3) Continue DVT prophylaxis: HERNAN hose, ankle pumps, Lovenox 30mg SQ BID x 3wks, then 325mg ASA bid x 3wks 4) Continue Diabetic Diet 5) Appreciate Medicine input: monitor BS. 6) Antonella Dcd 08/28/17 7) Continue pain control meds prn 8) Daily dressing change scheduled to start POD 2 9) Strike Planning Applications for DC planning. Pt prefers [facility]. Discharge Planning Discharge Planning: long-term facility Pain Management: Percocet DVT Prophylaxis: TEDs, Lovenox Therapy: Physical Therapy, Occupational Therapy
[2017-08-29 07:50] VITALS: BP 125/81; PULSE 107; TEMP 37.3; O2SAT 91
[2017-08-29 08:26] LABS: HEMATOCRIT 26.8 % (42-52); MEAN CELL VOLUME 87.3 fL (80-100); MEAN CORPUSCULAR HEMOGLOBIN 29.3 pg (25-34); MEAN CORPUSCULAR HGB CONC 33.6 g/dl (32-36); PLATELET COUNT 147 K/uL (130-400); RED CELL DISTRIBUTION WIDTH CV 14.4 % (11.5-14.5); RED CELL DISTRIBUTION WIDTH SD 45.6 fL (36.4-46.3); WHITE BLOOD COUNT 17.25 K/uL (4.8-10.8)
[2017-08-29 08:39] LABS: CALCIUM 7.8 mg/dl (8.5-10.1); CREATININE 1.19 mg/dl (0.60-1.40)
[2017-08-29] MEDS: BUDESONIDE/FORMOTEROL FUMARATE 160/4.5 60 PUFFS/INHALER INH SCH ×2 (08:39→20:36)
[2017-08-29] MEDS: FERROUS GLUCONATE 324 MG TAB PO SCH ×3 (08:39→18:38)
[2017-08-29] MEDS: BusPIRone 15 MG TAB PO SCH ×2 (08:39→21:00)
[2017-08-29] MEDS: PANTOprazole SOD 40 MG TAB PO SCH (08:40)
[2017-08-29] MEDS: DOCUSATE SODIUM/SENNA 50/8.6MG TAB PO SCH ×2 (08:40→21:53)
[2017-08-29] MEDS: POLYETHYLENE (MIRALAX) 17 GM PACK PO SCH ×3 (08:43→20:47)
[2017-08-29] MEDS: ENOXAPARIN 30 MG/0.3 ML SYR SQ SCH ×2 (10:04→20:31)
[2017-08-29] MEDS: BuPROPion SR 150 MG TABCR PO SCH ×2 (10:05→21:53)
[2017-08-29] MEDS: CeleBREX 200 MG CAP PO SCH ×2 (10:05→21:52)
[2017-08-29] MEDS: DOCUSATE SODIUM 100 MG CAP PO SCH ×2 (10:05→21:53)
[2017-08-29] MEDS: DIVALPROEX 500 MG EXTENDED RELEASE TAB PO SCH (12:14)
[2017-08-29 16:05] VITALS: BP 109/72; PULSE 93; TEMP 36.8; O2SAT 94
[2017-08-29] MEDS: ZIPRASIDONE 80 MG CAP PO SCH (18:38)
[2017-08-29] MEDS: PRAVASTATIN SOD 20 MG TAB PO SCH (20:36)
[2017-08-29] MEDS: MONTELUKAST SOD 10 MG TAB PO SCH (20:36)
--- NOTE | 2017-08-29 20:41 | Progress Note ---
Subjective Date of Service: August 29, 2017. Subjective Pt evaluation today including: conversation w/ patient, physical exam, chart review, lab review Pain: knee only PO Intake: normal Voiding: voiding difficulty (after hernandez was removed he has had mild urinary hesitancy and difficulty ) overall feels good hopes to go to [facility] no bowel movement but passing flatus Problem List Medical Problems: (1) Abrasion of knee, right Status: Acute (2) Acidosis Status: Acute (3) Acute paranoia Status: Acute (4) Anxiety Status: Acute (5) Anxiety Status: Acute (6) Bronchitis Status: Acute (7) Chronic acquired lymphedema Status: Acute (8) Constipation Status: Acute (9) Dehydration Status: Acute (10) Erythema multiforme Status: Acute (11) Fall Status: Acute (12) Fall Status: Acute (13) Frequent falls Status: Acute (14) History of pneumonia Status: Acute (15) Injury of left toe Status: Acute (16) Left knee pain Status: Acute (17) Nail avulsion, toe Status: Acute (18) Nausea & vomiting Status: Acute (19) Paranoia Status: Acute (20) Pill esophagitis Status: Acute (21) Pneumonia involving right lung Status: Acute (22) Precordial chest pain Status: Acute (23) Rash Status: Acute (24) Suicidal ideation Status: Acute (25) Vomiting Status: Acute Review of Systems Constitutional: No fever Respiratory: No cough, No shortness of breath Cardiac: No chest pain Abdomen: No pain Objective Vital Signs Date Time Temp Pulse Resp B/P (MAP) Pulse Ox O2 Delivery O2 Flow Rate FiO2 08/29/17 16:17 Room Air 08/29/17 16:05 36.8 93 18 109/72 (84) 94 Room Air 08/29/17 07:50 37.3 107 18 125/81 (96) 91 Room Air 08/29/17 07:25 Room Air 08/28/17 23:28 37.5 105 14 128/82 (97) 93 Nasal Cannula 4.0 08/28/17 23:15 Room Air Physical Exam General Appearance: no apparent distress ENT: pharynx normal Neck: no JVD Respiratory/Chest: lungs clear, no respiratory distress, no accessory muscle use Cardiovascular: regular rate, rhythm, no gallop, no murmur Abdomen: normal bowel sounds, non tender, soft, no organomegaly Extremities: + pedal edema, + swelling (lymphedema - left leg/foot - no change ; no edema right foot/ankle) Neurologic/Psychiatric: alert, oriented x 3 Skin: + pertinent finding (left knee dressing intact ) Laboratory Results Last 24 Hours Test 08/29/17 07:54 08/29/17 08:21 08/29/17 12:06 08/29/17 17:09 White Blood Count 17.25 K/uL Red Blood Count 3.07 M/uL Hemoglobin 9.0 g/dL Hematocrit 26.8 % Mean Corpuscular Volume 87.3 fL Mean Corpuscular Hemoglobin 29.3 pg Mean Corpuscular Hemoglobin Concent 33.6 g/dl RDW Standard Deviation 45.6 fL RDW Coefficient of Variation 14.4 % Platelet Count 147 K/uL Mean Platelet Volume 9.0 fL Sodium Level 130 mmol/L Potassium Level 5.0 mmol/L Chloride Level 100 mmol/L Carbon Dioxide Level 25 mmol/L Anion Gap 5.0 mmol/L Blood Urea Nitrogen 13 mg/dl Creatinine 1.19 mg/dl Est Creatinine Clear Calc Drug Dose 82.3 ml/min Estimated GFR () 77.0 Estimated GFR (Non- 66.5 BUN/Creatinine Ratio 10.9 Random Glucose 115 mg/dl Calcium Level 7.8 mg/dl Bedside Glucose 122 mg/dl 135 mg/dl 122 mg/dl Test 08/29/17 20:21 Bedside Glucose 86 mg/dl Assessment and Plan 57yo male - 1. POD #2, s/p left TKR - DVT proph, dispo planning, pain control - defer to primary ortho team. 2. fever - this was likely post-op inflammatory reaction; there continue to be no signs/symptoms of infection by history or on exam today. Follow. 3. moderate acute blood loss anemia - 5 gram drop post-op. Fortunately not symptomatic; Fe supplementation. CBC in am again. 4. T2DM - controlled w/o any therapy. follow. 5. hypothyroidism - cont synthroid. TSH 05/2017 wnl. 6. bipolar d/o - cont all outpatient meds 7. lymphedema, left leg - chronic. 8. HTN - cont to hold outpatient meds as BPs are low or low-normal due to acute blood loss anemia. 9. asthma - w/o exacerbation - cont outpatient meds. 10. urinary hesitancy - due to recent hernandez will check u/a, r/o UTI. 11. constipation - bowel regimen of miralax BID, senna/colace BID. May need dulcolax suppos/enema if no BM by tomorrow. No evidence of ileus on exam. 12. hyponatremia - uncertain cause - since he is quite stable and no symptoms from such will simply repeat the serum Na in am. will cont to follow Continued [facility] stay due to: multiple IV medications needed Discharge planning: rehab hospital
[2017-08-29] MEDS: DIVALPROEX SODIUM 500 MG DELAY RELEASE TAB PO SCH (21:37)
[2017-08-29] MEDS: BENZTROPINE MESYLATE 1 MG TAB PO SCH (21:52)
[2017-08-29] MEDS: CLONAZEPAM 1 MG TAB PO SCH (21:53)
[2017-08-29] MEDS: LOXAPINE SUCCINATE 50 MG CAP PO SCH (21:53)
[2017-08-29 23:13] VITALS: BP 119/83; PULSE 98; TEMP 37.5; O2SAT 93
[2017-08-30 00:15] VITALS: O2SAT 93
[2017-08-30] MEDS: OXYCODONE HCL IR 5 MG TAB (IMMEDIATE RELEASE) PO PRN ×2 (03:13→09:08)
[2017-08-30] MEDS: LEVOTHYROXINE 175 MCG TAB PO SCH (06:15)
[2017-08-30 06:26] LABS: HEMATOCRIT 24.5 % (42-52); HEMOGLOBIN 8.3 g/dL (14.0-18.0); MEAN CELL VOLUME 87.5 fL (80-100); MEAN CORPUSCULAR HEMOGLOBIN 29.6 pg (25-34); MEAN CORPUSCULAR HGB CONC 33.9 g/dl (32-36); MEAN PLATELET VOLUME 8.4 fL (7.4-10.4); PLATELET COUNT 144 K/uL (130-400); RED CELL DISTRIBUTION WIDTH CV 14.7 % (11.5-14.5); RED CELL DISTRIBUTION WIDTH SD 47.2 fL (36.4-46.3); WHITE BLOOD COUNT 16.01 K/uL (4.8-10.8)
[2017-08-30 07:00] VITALS: BP 115/80; PULSE 97; TEMP 37.9; O2SAT 91
[2017-08-30 07:05] LABS: CALCIUM 8.2 mg/dl (8.5-10.1); CREATININE 1.14 mg/dl (0.60-1.40); POTASSIUM 4.6 mmol/L (3.5-5.1)
[2017-08-30] MEDS ORDERED: ASCO250C3 PO (08:48)
[2017-08-30] MEDS ORDERED: FERR1TAB13 PO (08:48)
[2017-08-30] MEDS ORDERED: OXYC-57 PO (08:48)
[2017-08-30] MEDS ORDERED: ENOX40IN SQ (08:48)
--- NOTE | 2017-08-30 08:51 | Orthopedic Progress Note ---
Orthopedic Progress Note Date of Service August 30, 2017. Subjective Post OP Day: 3 Reports: feeling well, complaints, chest pain, SOB, light headedness Additional Notes: Patient resting in bed this AM. He states that he is feeling much better today. Denies any significant knee pain. Objective calves soft nontender, N/V intact, incision C/D/I, A&O x3, toes mobile Left lower extremity is edematous, more significantly over the foot. This is the patient's baseline Date Time Temp Pulse Resp B/P (MAP) Pulse Ox O2 Delivery O2 Flow Rate FiO2 08/30/17 08:00 Room Air 08/30/17 07:00 37.9 97 16 115/80 (92) 91 Room Air 08/30/17 00:15 93 Room Air 4.0 08/29/17 23:13 37.5 98 16 119/83 (95) 93 Room Air 08/29/17 16:17 Room Air 08/29/17 16:05 36.8 93 18 109/72 (84) 94 Room Air Laboratory Results 24 Hours: Test 08/30/17 06:12 Hematocrit 24.5 % Hemoglobin 8.3 g/dL Assessment & Plan Assessment: S/P left total knee replacement POD 3 Plan: WBAT with assistive device and immobilizer to left knee, once good quad control may d/c immobilizer. Does not need to where immobilizer in bed or once sitting. PT/OT Continue DVT prophylaxis: HERNAN hose, ankle pumps, Lovenox 30mg SQ BID x 3wks, then 325mg ASA bid x 3wks, then return to usual ASA dose Continue Diabetic Diet Appreciate Medicine input: monitor BS, Na, working up urinary incontinence and medical management. Antonella Dcd 08/28/17, Ua neg Continue pain control meds prn Daily dressing change scheduled to start POD 2 ( Do ABDs, Kerlix, and denise wrap from foot up to mid-thigh to control swelling Dressing changed this AM Regional Office Coordinator for DC planning. Awaiting Insurance approval to [facility]. I, Dr. Alejandra, saw and examined the patient and agree with the above findings and plan of care discussed with my Fellow. Discharge Planning Discharge Planning: long-term facility Pain Management: Percocet DVT Prophylaxis: TEDs, Lovenox Therapy: Physical Therapy, Occupational Therapy
[2017-08-30] MEDS: BusPIRone 15 MG TAB PO SCH ×2 (09:02→21:07)
[2017-08-30] MEDS: BUDESONIDE/FORMOTEROL FUMARATE 160/4.5 60 PUFFS/INHALER INH SCH ×2 (09:02→21:06)
[2017-08-30] MEDS: POLYETHYLENE (MIRALAX) 17 GM PACK PO SCH ×2 (09:03→21:06)
[2017-08-30] MEDS: CeleBREX 200 MG CAP PO SCH ×2 (09:03→21:07)
[2017-08-30] MEDS: DOCUSATE SODIUM 100 MG CAP PO SCH ×2 (09:03→21:07)
--- NOTE | 2017-08-30 09:03 | Discharge Instructions ---
Discharge Instructions Date of Service September 02, 2017. Admission Reason for Admission: Left Knee Djd Discharge Discharge Diagnosis / Problem: left knee djd Discharge Goals Goal(s): Decrease discomfort, Improve function, Increase independence Activity Recommendations Activity Limitations: as noted below Lifting Limitations: gradually increase as tolerated Exercise/Sports Limitations: until after follow-up appointment May Resume Sexual Activity: after follow-up appointment Shower/Bathe: tomorrow, keep incision dry Driving or Machine Use: until cleared by survival specialist Weightbearing Status: Left weightbearing (as tolerated with walker and immobilizer until good quad control) . Instructions / Follow-Up Instructions / Follow-Up POST-OP INSTRUCTIONS: Patient able to shower. Keep matty covered, clean, and dry. Apply SAMANTA wrap to left lower extremity foot to mid thigh daily. Wear hilary hose to right lower extremity. Continue this until follow up Dr Alejandra. Use walker with immoblizer until better quad control and then DC immobilizer. Continue lovenox 30mg SQ twice daily for total of 21 days post-op. After, start 325mg ASA BID for 3 weeks. Please take prescribed medications including iron and vit c as directed for 2weeks. Pain medication as needed. In place of percocet, it is ok to take tylenol. Hold all NSAIDs while on blood thinners. Patient is being discharged to [facility] for continued skilled services. Afterwards, plan on home health therapy. Continue to focus on knee range of motion, strengthening, and gait. Plan to follow up as scheduled with Dr Alejandra for staple removal 10-14 days post-op. Please call [facility] [phone] if any questions. From psychiatry standpoint: Continue Depakote ER 1500mg PO BID. Patient is to schedule an appointment with JOHNNY [facility] liason. Patient also to follow up with his outpatient providers at [facility]. Current Hospital Diet Patient's current hospital diet: Diabetes Type 2 Diet Discharge Diet Recommended Diet: Diabetes Type 2 Diet Procedures Procedures Performed: Left Total Knee Arthroplasty, Cemented Pending Studies Studies pending at discharge: no Laboratory Results Hemoglobin A1c Test 06/18/17 08:00 Range/Units Estimated Average Glucose 117 mg/dl Hemoglobin A1c 5.7 H 4.5-5.6 % Lipid Panel Test 06/18/17 08:00 Range/Units Triglycerides Level 95 0-150 mg/dl Cholesterol Level 147 0-200 mg/dl HDL Cholesterol 44 mg/dl Cholesterol/HDL Ratio 3.3 LDL Cholesterol, Calculated 84 mg/dl Medical Emergencies . Who to Call and When: Medical Emergencies: If at any time you feel your situation is an emergency, please call 911 immediately. . Non-Emergent Contact Non-Emergency issues call your: Surgeon Call Non-Emergent contact if: temperature is above 101.5, your pain is not controlled, wound has increased drainage, wound has increased redness . "Provider Documentation" section prepared by Jane العراقي. . Sap Bi Architect Recommendations Sap Bi Architect Recommendations: 1:Depakote toxicity His Depakote dose is quite high I am sure there is a rationale for that however we cannot tolerate doses that taken beyond healthy ranges, 120 is the highest I would tolerate and since it was elevated in 05/2017 and again 08/30/17 very close to that, I would reduce to Depakote ER 1500mg po bid and a level in 5days. If he is discharged prior to that point or goes to a [place] [facility] facility where goes home please are sure that this is communicated to the next level of care as well as his outpatient providers at the [facility] psych [facility] 2: Schizoaffective disorder bipolar type - the patient is stable please continue the remainder of his psychotropic medications as they are presently written for aside from the depakote change as noted above - he needs to make an appt with [facility] liaison to assist in this process, however if he leaves [facility] prior to Saturday this will need to be passed to the next level of care [place] Drug Monitoring Program Search Results: patient reviewed within database, no issues identified, see additional documentation
[2017-08-30] MEDS: BuPROPion SR 150 MG TABCR PO SCH ×2 (09:05→21:07)
[2017-08-30] MEDS: ENOXAPARIN 30 MG/0.3 ML SYR SQ SCH ×2 (09:09→19:52)
[2017-08-30] MEDS: PANTOprazole SOD 40 MG TAB PO SCH (10:07)
[2017-08-30] MEDS: FERROUS GLUCONATE 324 MG TAB PO SCH ×3 (10:07→17:35)
[2017-08-30] MEDS: DOCUSATE SODIUM/SENNA 50/8.6MG TAB PO SCH ×2 (10:08→21:07)
[2017-08-30 11:11] LABS: HEMATOCRIT 25.7 % (42-52); HEMOGLOBIN 8.8 g/dL (14.0-18.0)
[2017-08-30] MEDS: DIVALPROEX 500 MG EXTENDED RELEASE TAB PO SCH (12:13)
[2017-08-30 14:17] LABS: SODIUM RANDOM URINE 5 mEq/L
[2017-08-30 14:52] LABS: OSMOLALITY,URINE 433 mOms/kg (500-800)
[2017-08-30 15:31] VITALS: BP 117/74; PULSE 92; TEMP 37; O2SAT 93
[2017-08-30 15:35] VITALS: O2SAT 93
[2017-08-30 15:49] LABS: CALCIUM 8.3 mg/dl (8.5-10.1); CREATININE 1.21 mg/dl (0.60-1.40); POTASSIUM 4.7 mmol/L (3.5-5.1)
[2017-08-30] MEDS ORDERED: SODIUM CHLORIDE 1 GM TAB PO ONE (17:00)
[2017-08-30] MEDS: ZIPRASIDONE 80 MG CAP PO SCH (17:35)
--- NOTE | 2017-08-30 20:59 | Progress Note ---
Subjective Date of Service: August 30, 2017. Subjective Pt evaluation today including: conversation w/ patient, physical exam, chart review, lab review, conversation w/ event management consultant (psychiatry, orthopedics ) Pain: left knee only PO Intake: normal Voiding: incontinence (intermittent, mild ) I saw the patient while he was participating in PT. The therapists reported he was doing much better than yesterday. When I interviewed him he was a little agitated. However, he was alert and oriented x 3. Staff report he was groggy and not making sense at times yesterday. Did finally have a bowel movement yesterday. Problem List Medical Problems: (1) Abrasion of knee, right Status: Acute (2) Acidosis Status: Acute (3) Acute paranoia Status: Acute (4) Anxiety Status: Acute (5) Anxiety Status: Acute (6) Bronchitis Status: Acute (7) Chronic acquired lymphedema Status: Acute (8) Constipation Status: Acute (9) Dehydration Status: Acute (10) Erythema multiforme Status: Acute (11) Fall Status: Acute (12) Fall Status: Acute (13) Frequent falls Status: Acute (14) History of pneumonia Status: Acute (15) Injury of left toe Status: Acute (16) Left knee pain Status: Acute (17) Nail avulsion, toe Status: Acute (18) Nausea & vomiting Status: Acute (19) Paranoia Status: Acute (20) Pill esophagitis Status: Acute (21) Pneumonia involving right lung Status: Acute (22) Precordial chest pain Status: Acute (23) Rash Status: Acute (24) Suicidal ideation Status: Acute (25) Vomiting Status: Acute Review of Systems Constitutional: No fever, No chills Respiratory: No cough, No shortness of breath, No dyspnea on exertion Cardiac: No chest pain Abdomen: No pain, No diarrhea, No constipation Male : + slowing stream, No dysuria Objective Vital Signs Date Time Temp Pulse Resp B/P (MAP) Pulse Ox O2 Delivery O2 Flow Rate FiO2 08/30/17 15:35 93 Room Air 08/30/17 15:31 37.0 92 18 117/74 (88) 93 Room Air 08/30/17 08:00 Room Air 08/30/17 07:00 37.9 97 16 115/80 (92) 91 Room Air 08/30/17 00:15 93 Room Air 4.0 08/29/17 23:13 37.5 98 16 119/83 (95) 93 Room Air Physical Exam General Appearance: no apparent distress ENT: pharynx normal Neck: no JVD Respiratory/Chest: lungs clear, no respiratory distress, no accessory muscle use Cardiovascular: regular rate, rhythm, no gallop, no murmur Abdomen: normal bowel sounds, non tender, soft, no organomegaly Extremities: + swelling (lymphedema on left; mild edema on right) Neurologic/Psychiatric: alert, oriented x 3 Skin: + pallor Comments: musculo - left knee dressings intact Laboratory Results Last 24 Hours Test 08/29/17 21:45 08/30/17 06:12 08/30/17 08:16 08/30/17 10:48 Urine Color YELLOW Urine Appearance CLEAR Urine pH 6.0 Urine Specific [place] 1.016 Urine Protein NEG Urine Glucose (UA) NEG Urine Ketones NEG Urine Occult Blood NEG Urine Nitrite NEG Urine Bilirubin NEG Urine Urobilinogen NEG Urine Leukocyte Esterase NEG White Blood Count 16.01 K/uL Red Blood Count 2.80 M/uL Hemoglobin 8.3 g/dL 8.8 g/dL Hematocrit 24.5 % 25.7 % Mean Corpuscular Volume 87.5 fL Mean Corpuscular Hemoglobin 29.6 pg Mean Corpuscular Hemoglobin Concent 33.9 g/dl RDW Standard Deviation 47.2 fL RDW Coefficient of Variation 14.7 % Platelet Count 144 K/uL Mean Platelet Volume 8.4 fL Sodium Level 129 mmol/L Potassium Level 4.6 mmol/L Chloride Level 99 mmol/L Carbon Dioxide Level 26 mmol/L Anion Gap 4.0 mmol/L Blood Urea Nitrogen 13 mg/dl Creatinine 1.14 mg/dl Est Creatinine Clear Calc Drug Dose 85.9 ml/min Estimated GFR () 81.1 Estimated GFR (Non- 70.0 BUN/Creatinine Ratio 11.4 Random Glucose 104 mg/dl Calcium Level 8.2 mg/dl Bedside Glucose 126 mg/dl Osmolality 266 mOsm/kg Valproic Acid (Depakene) Level 119 mcg/ml Test 08/30/17 12:12 08/30/17 13:50 08/30/17 15:15 08/30/17 17:06 Bedside Glucose 137 mg/dl 102 mg/dl Urine Osmolality 433 mOms/kg Urine Random Sodium 5 mEq/L Sodium Level 127 mmol/L Potassium Level 4.7 mmol/L Chloride Level 96 mmol/L Carbon Dioxide Level 25 mmol/L Anion Gap 6.0 mmol/L Blood Urea Nitrogen 14 mg/dl Creatinine 1.21 mg/dl Est Creatinine Clear Calc Drug Dose 80.9 ml/min Estimated GFR () 75.5 Estimated GFR (Non- 65.1 BUN/Creatinine Ratio 11.5 Random Glucose 101 mg/dl Calcium Level 8.3 mg/dl Test 08/30/17 20:35 Bedside Glucose 75 mg/dl Assessment and Plan 57yo male - 1. POD #3, s/p left TKR - DVT proph, dispo planning, pain control - defer to primary ortho team. 2. fever - temps are low-grade, and he does not have an obvious focus of infection. U/a was not suggestive of UTI. To be on safe side will send blood cultures and follow off of antibiotics. 3. moderate acute blood loss anemia - 5+ gram drop post-op. Hb was 8.3 this am ; repeat was 8.8. CBC in am. Fortunately not symptomatic from the anemia. Cont Fe supplementation. 4. T2DM - controlled w/o any therapy. follow. 5. hypothyroidism - cont synthroid. TSH 05/2017 wnl. 6. bipolar d/o - he has depakote toxicity with elevated level, and intermittent sedation - possibly from the depakote. Place depakote on hold; I have asked psych to see him for medication management. His dose of depakote, if correct, was very large. Recheck depakote level in am. 7. lymphedema, left leg - chronic. 8. HTN - cont to hold outpatient meds as BPs are low or low-normal due to acute blood loss anemia. 9. asthma - w/o exacerbation - cont outpatient meds. 10. urinary hesitancy - u/a not suggestive of UTI. PVR has been satisfactory. Incontinence could be due to mental status issues. Follow. 11. constipation - improved w/ bowel regimen. 12. hyponatremia - worse today. Urine osm > serum osm but urine Na is very depressed. Somewhat confusing picture but the acute drop in sodium suggests SIADH. He has not been receiving his lasix but despite such he does not appear volume overloaded (appears euvolemic). Will start NaCL tablets 1gm daily, first dose now, and repeat the BMP in the am along with uric acid level. Also repeat his urine osm in the am. 13. encephalopathy - toxic (from depakote) + metabolic (hyponatremia) +/- other causes. holding depakote. correct low sodium. follow. 14. depakote toxicity - hold depakote, repeat level in am, psych consult requested. Check LFTs to ensure no transaminitis from the high depakote level. total time today about 50 minutes including multiple phone calls to various consultants, reviewing data, etc Continued [facility] stay due to: multiple IV medications needed, other ( hyponatremia ) Discharge planning: rehab hospital
[2017-08-30] MEDS: PRAVASTATIN SOD 20 MG TAB PO SCH (21:07)
[2017-08-30] MEDS: LOXAPINE SUCCINATE 50 MG CAP PO SCH (21:07)
[2017-08-30] MEDS: BENZTROPINE MESYLATE 1 MG TAB PO SCH (21:07)
[2017-08-30] MEDS: MONTELUKAST SOD 10 MG TAB PO SCH (21:07)
[2017-08-30] MEDS: CLONAZEPAM 1 MG TAB PO SCH (21:08)
[2017-08-30 23:20] VITALS: BP 134/81; PULSE 92; TEMP 37; O2SAT 97
[2017-08-31] VITALS (14 sets, daily range): BP systolic 125–160; BP diastolic 78–98; PULSE 90–101; TEMP 36.3–37.1; O2SAT 89–99
[2017-08-31] MEDS: LEVOTHYROXINE 175 MCG TAB PO SCH (06:04)
[2017-08-31 08:08] LABS: HEMATOCRIT 23.1 % (42-52); HEMOGLOBIN 7.7 g/dL (14.0-18.0); MEAN CELL VOLUME 88.8 fL (80-100); MEAN CORPUSCULAR HEMOGLOBIN 29.6 pg (25-34); MEAN CORPUSCULAR HGB CONC 33.3 g/dl (32-36); MEAN PLATELET VOLUME 8.4 fL (7.4-10.4); PLATELET COUNT 163 K/uL (130-400); RED CELL DISTRIBUTION WIDTH CV 15.1 % (11.5-14.5); RED CELL DISTRIBUTION WIDTH SD 48.9 fL (36.4-46.3); WHITE BLOOD COUNT 13.57 K/uL (4.8-10.8)
[2017-08-31] MEDS: CARBOHYDRATES FOR HYPOGLYCEMIA PO PRN (08:17)
--- NOTE | 2017-08-31 08:17 | Orthopedic Progress Note ---
Orthopedic Progress Note Date of Service August 31, 2017. Subjective Post OP Day: 4 Reports: complaints (Urinary incontinence) Objective calves soft nontender, N/V intact, incision C/D/I, A&O x3 LLE: Lymphedema unchanged Date Time Temp Pulse Resp B/P (MAP) Pulse Ox O2 Delivery O2 Flow Rate FiO2 08/31/17 06:49 37.1 92 18 125/87 (100) 92 Room Air 08/30/17 23:45 Room Air 08/30/17 23:20 37.0 92 16 134/81 (98) 97 Room Air 08/30/17 15:35 93 Room Air 08/30/17 15:31 37.0 92 18 117/74 (88) 93 Room Air Laboratory Results 24 Hours: Test 08/30/17 10:48 08/31/17 07:54 Hematocrit 25.7 % 23.1 % Hemoglobin 8.8 g/dL 7.7 g/dL Assessment & Plan Assessment: S/P left total knee replacement POD 4, acute anemia blood loss. Plan: WBAT with assistive device and immobilizer to left knee, once good quad control may d/c immobilizer. Does not need to where immobilizer in bed or once sitting. PT/OT Continue DVT prophylaxis: HERNAN hose, ankle pumps, Lovenox 30mg SQ BID x 3wks, then 325mg ASA bid x 3wks, then return to usual ASA dose Continue Diabetic Diet Appreciate Medicine input: monitor BS, Na, working up urinary incontinence and medical management. Psychiatry consulted for elevated Depakote level & to optimize physiatric meds. Acute anemia blood loss, Hgb 7.7, patient remains tachycardic, will transfuse 2 units pRBC with 10 Lasix in between units. Berman Dcd 08/28/17, Ua neg Continue pain control meds prn Daily dressing change scheduled to start POD 2 ( Do ABDs, Kerlix, and denise wrap from foot up to mid-thigh to control swelling Dressing changed this AM Dental Lab Technician for DC planning. Awaiting Insurance approval to [facility]. Discharge Planning Discharge Planning: [facility] facility Pain Management: Percocet DVT Prophylaxis: TEDs, Lovenox Therapy: Physical Therapy, Occupational Therapy
[2017-08-31] MEDS: FERROUS GLUCONATE 324 MG TAB PO SCH ×3 (08:40→17:55)
[2017-08-31] MEDS: BUDESONIDE/FORMOTEROL FUMARATE 160/4.5 60 PUFFS/INHALER INH SCH ×2 (08:40→21:27)
[2017-08-31] MEDS: ENOXAPARIN 30 MG/0.3 ML SYR SQ SCH ×2 (08:40→20:09)
[2017-08-31] MEDS: BusPIRone 15 MG TAB PO SCH ×2 (08:41→21:27)
[2017-08-31] MEDS: DOCUSATE SODIUM/SENNA 50/8.6MG TAB PO SCH ×2 (08:42→21:00)
[2017-08-31] MEDS: CeleBREX 200 MG CAP PO SCH ×2 (08:42→21:28)
[2017-08-31] MEDS: PANTOprazole SOD 40 MG TAB PO SCH (08:42)
[2017-08-31] MEDS: DOCUSATE SODIUM 100 MG CAP PO SCH ×2 (08:42→21:28)
[2017-08-31 08:43] LABS: CALCIUM 7.9 mg/dl (8.5-10.1); POTASSIUM 4.4 mmol/L (3.5-5.1); URIC ACID 2.2 mg/dl (2.6-7.2)
[2017-08-31] MEDS: SODIUM CHLORIDE 1 GM TAB PO SCH (08:43)
[2017-08-31] MEDS: BuPROPion SR 150 MG TABCR PO SCH ×2 (08:43→21:30)
[2017-08-31] MEDS: POLYETHYLENE (MIRALAX) 17 GM PACK PO SCH ×2 (08:44→21:00)
[2017-08-31 08:54] LABS: TOTAL PROTEIN 5.8 gm/dl (6.4-8.2)
[2017-08-31] MEDS ORDERED: FUROSEMIDE INJ 10 MG in SYRINGE 0 ML IV SCH (10:00)
--- NOTE | 2017-08-31 15:57 | Psychiatric Consultation ---
Consultation Date of Consultation August 31, 2017. Identifying Data The patient is a 57-year-old single male who is in to the medical service for orthopedic surgery he has multiple medical problems to include GERD, hypothyroidism, asthma, bilateral lymphedema, constipation, degenerative joint disease specifically knee pain relating to her surgery. He has known hyponatremia. He has a psychiatric history of schizoaffective disorder bipolar type. Psychiatry was consulted to see him as his Depakote level on August 30 at 1048 was 119 which is high. Chief Complaint "I am alright ". History of Present Illness The patient is a 57-year-old single male with known schizoaffective disorder most recently on the psychiatric inpatient unit in May 2017. I will review it for you to that full H&P as well as his discharge summary by Dr Mejia and Dr Alberto respectively for more complete history of present illness. At that point his outpatient records were reviewed by his long-standing outpatient provider Tereza HELTON at the [facility] psych clinic. She is apparently known the patient for some time and he has been seen in the clinic consistently for about 19 years. At that time his psychiatric medications were reviewed with his outpatient records. Please see psychiatric progress note dated June 18, 2017 for summary documented by Dr. Kym Alberto [facility] Inpatient Psychiatrist. At that time his Depakote level was noted to be 122 and his dose was lowered to Depakote ER 2000mg/AM and depakote ER 1500mg/hs with level in five days which was to occur after hospital discharge. There is a Depakote level in June which is in within normal limits somewhere in the 80s. It is unclear to what degree the patient is compliant or noncompliant with medications or if that indeed is a genuine level at this dose. At the bedside earlier today the patient was seen by the behavioral health nurse liaison he was slightly paranoid about why the nurse and come to asking questions but was agreeable to the interview. He did state he was not sleeping so good because he is watching lots of movies and his appetite was unbelievably good. The patient did become more irritable as the interview progressed and the patient anxious and frustrated from being in the hospital so long. The nurse mentioned to the patient that the psychiatrist would be visiting later in the day I met the patient at the bedside today. Before I can introduce myself immediately jumps into conversation about how his sleep is shifted and he goes to bed in the wee hours of the morning and wakes up midday and starts eating around 2 PM for the day. He states "I cannot take this waking up at 7 AM here and trying to go to bed earlier" he is receptive to this provider redirecting the conversation to introductions and provider sharing what I have come to see him. When provider notes his Depakote level was recently high he states "we will than Tereza Tamayo can just stop it" when provider suggested a more conservative approach of lowering the dose and rechecking the level he states "well you can do that too." He states his mood has been "pretty good" he had several times perseverates on how he stopped his tramadol on his own prior to his surgery due to awareness that it can be an addictive medicine and that he was having some form of discomfort physically waking in the middle of his sleep window feeling poorly which she attributed to the combination of tramadol and Klonopin. Again he is redirectable and states he is taking his medications as prescribed at home and denies serious side effects. He does agree that they may make his energy lower but he denies overt signs or symptoms of elevated or mixed mood states her depression recently. He denies feeling anxious routinely but here in the hospital feels somewhat frustrated and anxious being away from his home. He states he wants to make sure he does not get an infection but does want to leave the hospital as soon as he is allowed. He is not fully sure of the discharge plan he had hoped to go to [facility] but is aware that he do not take his insurance but is uncertain if he will go to another detention facility versus going home with home health. I discussed with him his Depakote level and the recommendation to lower it and he is in agreement with that. He confirms his medications as listed on his med reconciliation from time of admission. This is consistent with the [facility] psychological clinic record we have received in May 2017 as well minus the change in Depakote. When I asked if the patient had questions he wanted to inquire about not having had a bowel movement since admission. He denies feeling bloated or constipated. I encouraged him to discuss this with his primary team to assure his bowel state regular after coming through surgery and being on pain medicines. He immediately jumps to "well I just wanted pain medications." Again he is redirectable 2 more conservative approach of taking medications as needed when he has pain accepting that he may have to work to fight some level of slow her bowels. Psychiatric review of systems: He denies signs or symptoms of psychosis at this time, although he was somewhat irritable earlier today he denies feeling routinely irritable, he denies signs or symptoms of elevated or mixed mood states, denies feeling depressed. He presently denies signs or symptoms of generalized anxiety denies panic attacks. He denies thoughts of wishing his life over or suicidal ideations and intentions or plans. He denies homicidal ideations intentions or plans Past Psychiatric History Current OP Treatment: psychiatrist (Beena TURNER), case consultant Prior OP Treatment: psychiatrist, therapist (was seeing someone who is no longer at the clinic, he has not asked for a new therapist yet due to finances) , case consultant (Justina at the [facility]) Prior Psych Hospitalizations: [facility] (2018 under 302 after making suicidal statements and possibly 10 years prior (consult? vs admit?)) Access to a Gun: No Suicide Attempts: No Past Medication Trials Including but not limited to Wellbutrin SR, Risperdal, Seroquel, Haldol, lithium , Prozac, geodon, klonopin. loxitane Past Medical/Surgical History History of Concussion/Seizure: No (1) Schizoaffective disorder, bipolar type (2) Knee pain (3) Lymphedema of both lower extremities (4) Left knee DJD (5) Hyponatremia (6) Constipation (7) Sleep apnea (8) Mitral regurgitation (9) Tricuspid regurgitation (10) Hyperlipidemia (11) Chronic kidney disease (12) Gastroesophageal reflux disease (13) Benign hypertension (14) Hypothyroidism Allergies Allergies: Coded Allergies: No Known Allergies (Verified , 08/27/17) Home Medications Scheduled Ascorbic Acid (Vitamin C), 250 MG PO BID Aspirin (Aspirin Ec), 81 MG PO QAM Benztropine Mesylate (Benztropine Mesylate), 2 MG PO HS Budesonide/Formoterol Fumarate (Symbicort 160-4.5 Mcg/Act), 2 PUFFS INH BID Bupropion HCl (Bupropion HCl Sr), 150 MG PO BID Buspirone HCl (Buspirone HCl), 30 MG PO BID Clonazepam (Klonopin), 2 MG PO HS Divalproex Sodium (Depakote Etended-Release), 2,000 MG PO UD Divalproex Sodium (Depakote), 1,500 MG PO QPM Enoxaparin (Lovenox), 30 MG SQ Q12H Ferrous Sulfate (Kp Ferrous Sulfate), 1 TAB PO BID Furosemide (Lasix), 40 MG PO QAM Levothyroxine Sodium (Levothyroxine Sodium), 175 MCG PO QAM Lisinopril (Lisinopril), 10 MG PO QAM Loratadine (Claritin), 10 MG PO QAM Loxapine Succinate (Loxapine), 100 MG PO HS Metformin Hcl (Glucophage), 850 MG PO BID Montelukast Sodium (Singulair), 10 MG PO HS Omeprazole (Prilosec), 20 MG PO QAM Polyethylene Glycol 3350 (Miralax), 17 GM PO BID Potassium Ext Rel (Klor-Con), 20 MEQ PO BID Pravastatin Sodium (Pravachol), 20 MG PO HS Ranitidine (Zantac), 150 MG PO BID Sennosides-Docusate Sodium (Senna Plus), 1 TAB PO BID Ziprasidone Hcl (Geodon), 160 MG PO QDD Scheduled PRN Albuterol Hfa (Ventolin Hfa), 2-4 PUFFS INH UD PRN for ASTHMA Naproxen (Naprosyn), 500 MG PO UD PRN for Pain Oxycodone/Acetaminophen 5MG/325MG (Percocet 5MG/325MG), 1-2 TABLETS PO Q4H PRN for Pain Tramadol HCl (Tramadol HCl), 50-100 MG PO Q4 PRN for Pain Miscellaneous Medications Magnesium Oxide (Magnesium) Family History Diabetes mellitus Gallbladder disease Hypertension History of Suicide: No History of Substance Abuse: No Psychiatric History: Yes Diabetes, gallbladder disease, hypertension, no history of suicide, no history of substance abuse father had bipolar disorder and diabetes and schizophrenia, sister bipolar disorder diabetes and schizophrenia per patient's medical record Alcohol Use Alcohol Use In Past 12 Months: No 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 Smoking Use Smoking Status: Never Smoker Personal History Lives in: [facility] Childhood: Born and raised in [place] Education: graduated college Relationship History: never Children: denied Legal History: none Psychological Trauma History: Denies Hx Traumatic Event Review of Systems See psychiatric review of systems as above, patient states he has some knee pain but feels it is well managed, does report having had a bowel movement since admission but denies feeling bloated or having abdominal pain, he denies symptoms on remainder of review of systems Examination Vital Signs Vital Signs Past 12 Hours Date Time Temp Pulse Resp B/P (MAP) Pulse Ox O2 Delivery O2 Flow Rate FiO2 08/31/17 14:26 36.9 96 18 132/78 99 08/31/17 13:30 36.3 99 18 159/91 93 08/31/17 13:00 36.6 101 18 160/98 (118) 99 Room Air 08/31/17 13:00 36.6 101 18 160/98 99 08/31/17 12:49 37.0 98 17 157/94 (115) 98 Room Air 08/31/17 12:45 37.0 98 18 157/94 98 08/31/17 12:31 36.5 95 18 151/85 98 08/31/17 11:51 36.7 91 17 137/84 94 08/31/17 11:15 36.8 94 16 133/86 96 08/31/17 11:01 36.8 92 20 158/88 98 08/31/17 10:34 36.4 92 20 149/83 08/31/17 09:43 91 97 08/31/17 07:40 Room Air 08/31/17 06:49 37.1 92 18 125/87 (100) 92 Room Air Laboratory Results Last 24 Hours Test 08/30/17 15:15 08/30/17 17:06 08/30/17 20:35 08/30/17 23:34 Sodium Level 127 mmol/L Potassium Level 4.7 mmol/L Chloride Level 96 mmol/L Carbon Dioxide Level 25 mmol/L Anion Gap 6.0 mmol/L Blood Urea Nitrogen 14 mg/dl Creatinine 1.21 mg/dl Est Creatinine Clear Calc Drug Dose 80.9 ml/min Estimated GFR () 75.5 Estimated GFR (Non- 65.1 BUN/Creatinine Ratio 11.5 Random Glucose 101 mg/dl Calcium Level 8.3 mg/dl Bedside Glucose 102 mg/dl 75 mg/dl Urine Osmolality 137 mOms/kg Test 08/30/17 23:50 08/31/17 04:06 08/31/17 07:54 08/31/17 08:14 Bedside Glucose 118 mg/dl 79 mg/dl 68 mg/dl White Blood Count 13.57 K/uL Red Blood Count 2.60 M/uL Hemoglobin 7.7 g/dL Hematocrit 23.1 % Mean Corpuscular Volume 88.8 fL Mean Corpuscular Hemoglobin 29.6 pg Mean Corpuscular Hemoglobin Concent 33.3 g/dl RDW Standard Deviation 48.9 fL RDW Coefficient of Variation 15.1 % Platelet Count 163 K/uL Mean Platelet Volume 8.4 fL Sodium Level 131 mmol/L Potassium Level 4.4 mmol/L Chloride Level 98 mmol/L Carbon Dioxide Level 28 mmol/L Anion Gap 5.0 mmol/L Blood Urea Nitrogen 14 mg/dl Creatinine 1.00 mg/dl Est Creatinine Clear Calc Drug Dose 97.9 ml/min Estimated GFR () 95.1 Estimated GFR (Non- 82.0 BUN/Creatinine Ratio 13.9 Random Glucose 105 mg/dl Uric Acid 2.2 mg/dl Calcium Level 7.9 mg/dl Total Bilirubin 0.5 mg/dl Direct Bilirubin 0.2 mg/dl Aspartate Amino Transf (AST/SGOT) 19 U/L Alanine Aminotransferase (ALT/SGPT) 21 U/L Alkaline Phosphatase 92 U/L Total Protein 5.8 gm/dl Albumin 2.0 gm/dl Thyroid Stimulating Hormone (TSH) 2.460 uIu/ml Valproic Acid (Depakene) Level 89 mcg/ml Test 08/31/17 08:37 08/31/17 12:00 Bedside Glucose 121 mg/dl 70 mg/dl Mental Examination During interview pt is: alert and oriented Appearance: other (Seated in a hospital gown in hospital bed) Eye contact is: good Motor behavior is: no abnormal motor movements (Gait not appreciated as patient is status post knee surgery laying in bed) Speech: normal in rate, rhythm & volume (He is somewhat valuable but not pressured quick to see if the conversation and tangential subjects but is redirectable) Affect: mood congruent (He states he is "all right" and appears so. He is not irritable with this provider as he was earlier today with our nurse and appears in good spirits) Mood is: other (Euthymic) Thought process: linear, logical (He can speak directly to concerns on his mind but is somewhat tangential to providers goals. He is redirectable and cooperative with provider's questions) Thought content: other (He seems to have some anxious impulse to relate his thoughts and get his questions answered about certain topics. It does not appear paranoid to this provider as he was to our nurse earlier today. 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 He has fortunately had long- standing care with a single clinic and a single prescribing provider. Although his regimen is somewhat out of the ordinary with high doses of multiple medications it does appear that he has remained relatively stable when he stays on his medications as he has not been routinely hospitalized except for May 2017 when he was off some medications for a brief time. 1. Safety -the patient is not considered an imminent danger to herself or others. Outpatient care from a psychiatric perspective is the most appropriate least restrictive setting for care once he is medically stabilized as of this assessment. 2. Depakote toxicity His Depakote dose is quite high I am sure there is a rationale for that however we cannot tolerate doses that taken beyond healthy ranges, 120 is the highest I would tolerate and since it was elevated in 05/2017 and again 08/30/17 very close to that, I would reduce to Depakote ER 1500mg po bid and a level in 5days. If he is discharged prior to that point or goes to a detention facility where goes home please are sure that this is communicated to the next level of care as well as his outpatient providers at the [facility] psych clinic 3. Schizoaffective disorder bipolar type - the patient is stable please continue the remainder of his psychotropic medications as they are presently written for aside from the depakote change as noted above - he needs to make an appt with Beena TURNER, [facility] liaison to assist in this process, however if he leaves [facility] prior to Saturday this will need to be passed to the next level of care 4. She will were sure thank you for asking us was not sure what the question was you understand your question was whether something specifically outstanding Patient management - patient may have difficulty adjusting to a traditional day/ night schedule of the hospital, please consider this when interacting with him to give him some maribell in sleeping in and his irritability at times when h e would otherwise would have been sleeping if in his primary home Thank you for this consult, if you have further questions or concerns please call Code [phone]
[2017-08-31] MEDS: ZIPRASIDONE 80 MG CAP PO SCH (17:55)
--- NOTE | 2017-08-31 21:12 | Progress Note ---
Subjective Date of Service: August 31, 2017. Subjective Pt evaluation today including: conversation w/ patient, physical exam, chart review, lab review, review of inpatient medication list Pain: left knee PO Intake: normal, eating fine Voiding: incontinence (but improving) tolerated PRBC infusion today w/o difficulty denies any dyspnea post-transfusion reports urinary frequency and some incontinence but the latter is related to not able to to get to the bathroom quickly enough "I'm frustrated" he stated - wants to get out of the hospital but is worried getting to rehab will take a long time more awake, alert today had bowel movement today Problem List Medical Problems: (1) Abrasion of knee, right Status: Acute (2) Acidosis Status: Acute (3) Acute paranoia Status: Acute (4) Anxiety Status: Acute (5) Anxiety Status: Acute (6) Bronchitis Status: Acute (7) Chronic acquired lymphedema Status: Acute (8) Constipation Status: Acute (9) Dehydration Status: Acute (10) Erythema multiforme Status: Acute (11) Fall Status: Acute (12) Fall Status: Acute (13) Frequent falls Status: Acute (14) History of pneumonia Status: Acute (15) Injury of left toe Status: Acute (16) Left knee pain Status: Acute (17) Nail avulsion, toe Status: Acute (18) Nausea & vomiting Status: Acute (19) Paranoia Status: Acute (20) Pill esophagitis Status: Acute (21) Pneumonia involving right lung Status: Acute (22) Precordial chest pain Status: Acute (23) Rash Status: Acute (24) Suicidal ideation Status: Acute (25) Vomiting Status: Acute Review of Systems Constitutional: No fever Respiratory: No cough, No wheezing, No shortness of breath Cardiac: No chest pain Abdomen: No pain Objective Vital Signs Date Time Temp Pulse Resp B/P (MAP) Pulse Ox O2 Delivery O2 Flow Rate FiO2 08/31/17 20:27 Room Air 08/31/17 15:40 Room Air 08/31/17 15:30 36.7 90 20 137/87 (104) 95 Room Air 08/31/17 14:26 36.9 96 18 132/78 99 08/31/17 13:30 36.3 99 18 159/91 93 08/31/17 13:00 36.6 101 18 160/98 (118) 99 Room Air 08/31/17 13:00 36.6 101 18 160/98 99 08/31/17 12:49 37.0 98 17 157/94 (115) 98 Room Air 08/31/17 12:45 37.0 98 18 157/94 98 08/31/17 12:31 36.5 95 18 151/85 98 08/31/17 11:51 36.7 91 17 137/84 94 08/31/17 11:15 36.8 94 16 133/86 96 08/31/17 11:01 36.8 92 20 158/88 98 08/31/17 10:34 36.4 92 20 149/83 08/31/17 09:43 91 97 08/31/17 07:40 Room Air 08/31/17 06:49 37.1 92 18 125/87 (100) 92 Room Air 08/30/17 23:45 Room Air 08/30/17 23:20 37.0 92 16 134/81 (98) 97 Room Air Physical Exam General Appearance: no apparent distress ENT: pharynx normal Neck: no JVD Respiratory/Chest: lungs clear, no respiratory distress, no accessory muscle use Cardiovascular: regular rate, rhythm, no gallop, no murmur Abdomen: normal bowel sounds, non tender, soft, no organomegaly Extremities: + swelling (lymphedema b/l, worse on left) Neurologic/Psychiatric: alert, oriented x 3 Skin: + pertinent finding (dressings intact left knee) Laboratory Results Last 24 Hours Test 08/30/17 23:34 08/30/17 23:50 08/31/17 04:06 08/31/17 07:54 Urine Osmolality 137 mOms/kg Bedside Glucose 118 mg/dl 79 mg/dl White Blood Count 13.57 K/uL Red Blood Count 2.60 M/uL Hemoglobin 7.7 g/dL Hematocrit 23.1 % Mean Corpuscular Volume 88.8 fL Mean Corpuscular Hemoglobin 29.6 pg Mean Corpuscular Hemoglobin Concent 33.3 g/dl RDW Standard Deviation 48.9 fL RDW Coefficient of Variation 15.1 % Platelet Count 163 K/uL Mean Platelet Volume 8.4 fL Sodium Level 131 mmol/L Potassium Level 4.4 mmol/L Chloride Level 98 mmol/L Carbon Dioxide Level 28 mmol/L Anion Gap 5.0 mmol/L Blood Urea Nitrogen 14 mg/dl Creatinine 1.00 mg/dl Est Creatinine Clear Calc Drug Dose 97.9 ml/min Estimated GFR () 95.1 Estimated GFR (Non- 82.0 BUN/Creatinine Ratio 13.9 Random Glucose 105 mg/dl Uric Acid 2.2 mg/dl Calcium Level 7.9 mg/dl Total Bilirubin 0.5 mg/dl Direct Bilirubin 0.2 mg/dl Aspartate Amino Transf (AST/SGOT) 19 U/L Alanine Aminotransferase (ALT/SGPT) 21 U/L Alkaline Phosphatase 92 U/L Total Protein 5.8 gm/dl Albumin 2.0 gm/dl Thyroid Stimulating Hormone (TSH) 2.460 uIu/ml Valproic Acid (Depakene) Level 89 mcg/ml Test 08/31/17 08:14 08/31/17 08:37 08/31/17 12:00 08/31/17 17:07 Bedside Glucose 68 mg/dl 121 mg/dl 70 mg/dl 98 mg/dl Test 08/31/17 20:42 Bedside Glucose 102 mg/dl Assessment and Plan 57yo male - 1. POD #4, s/p left TKR - DVT proph, dispo planning, pain control - defer to primary ortho team. 2. fever - resolved; blood cx's neg; no source of infection; was likely post- op cytokine response. 3. moderate-severe acute blood loss anemia - agree with 2 units of PRBCs today ; repeat cbc in am. Fe supplementation. 4. T2DM - controlled w/o any therapy. follow. Had relative hypoglycemia this am but this was fasting; no symptoms, no Rx. 5. hypothyroidism - cont synthroid. TSH 05/2017 wnl. 6. bipolar d/o - appreciate psych consult; they have lowered depakote to 1500mg BID. Agree w/ such. Cont other chronic meds. 7. lymphedema, left leg - chronic. 8. HTN - cont to hold outpatient meds as BPs are low or low-normal due to acute blood loss anemia. 9. asthma - w/o exacerbation - cont outpatient meds. 10. urinary hesitancy - u/a not suggestive of UTI. May have been 2nd to altered mental status/sleepiness. Overall improved. 11. constipation - resolved. 12. hyponatremia - suspect 2nd to mild SIADH; improved s/p NaCl tab. This should improve even further w/ lasix given today. Repeat BMP am. 13. encephalopathy - toxic (from depakote) + metabolic (hyponatremia) +/- other causes - resolved. 14. depakote toxicity - resolved. Depakote resumed by psych albeit at lower dose of 1500mg BID. LFTs were normal. Repeat level in 5 days. progressing dispo - SNF Continued [facility] stay due to: multiple IV medications needed, other (hyponatremia , depakote tox) Discharge planning[facility] jail facility
[2017-08-31] MEDS: BENZTROPINE MESYLATE 1 MG TAB PO SCH (21:28)
[2017-08-31] MEDS: LOXAPINE SUCCINATE 50 MG CAP PO SCH (21:29)
[2017-08-31] MEDS: PRAVASTATIN SOD 20 MG TAB PO SCH (21:30)
[2017-08-31] MEDS: MONTELUKAST SOD 10 MG TAB PO SCH (21:30)
[2017-08-31] MEDS: CLONAZEPAM 1 MG TAB PO SCH (21:32)
[2017-08-31] MEDS: DIVALPROEX 500 MG EXTENDED RELEASE TAB PO SCH (22:32)
[2017-09-01 05:31] LABS: HEMATOCRIT 28.1 % (42-52); HEMOGLOBIN 9.4 g/dL (14.0-18.0); MEAN CELL VOLUME 88.1 fL (80-100); MEAN CORPUSCULAR HEMOGLOBIN 29.5 pg (25-34); MEAN CORPUSCULAR HGB CONC 33.5 g/dl (32-36); MEAN PLATELET VOLUME 8.6 fL (7.4-10.4); NUCLEATED RED BLOOD CELL ABS 0.05 K/uL (0-0); PLATELET COUNT 200 K/uL (130-400); RED CELL DISTRIBUTION WIDTH SD 47.9 fL (36.4-46.3); WHITE BLOOD COUNT 11.07 K/uL (4.8-10.8)
[2017-09-01] MEDS: LEVOTHYROXINE 175 MCG TAB PO SCH (05:44)
[2017-09-01 05:50] LABS: CALCIUM 8.5 mg/dl (8.5-10.1); CREATININE 1.03 mg/dl (0.60-1.40)
[2017-09-01 07:12] VITALS: BP 116/80; PULSE 89; TEMP 37.1; O2SAT 93
[2017-09-01] MEDS: BUDESONIDE/FORMOTEROL FUMARATE 160/4.5 60 PUFFS/INHALER INH SCH ×2 (08:45→20:48)
[2017-09-01] MEDS: FERROUS GLUCONATE 324 MG TAB PO SCH ×3 (08:45→17:33)
[2017-09-01] MEDS: BusPIRone 15 MG TAB PO SCH ×2 (08:46→20:47)
[2017-09-01] MEDS: CeleBREX 200 MG CAP PO SCH ×2 (08:46→20:48)
[2017-09-01] MEDS: DOCUSATE SODIUM 100 MG CAP PO SCH ×2 (08:46→20:47)
[2017-09-01] MEDS: PANTOprazole SOD 40 MG TAB PO SCH (08:47)
[2017-09-01] MEDS: SODIUM CHLORIDE 1 GM TAB PO SCH (08:48)
[2017-09-01] MEDS: BuPROPion SR 150 MG TABCR PO SCH ×2 (08:48→20:47)
[2017-09-01] MEDS: ENOXAPARIN 30 MG/0.3 ML SYR SQ SCH ×2 (08:50→20:48)
[2017-09-01] MEDS: DOCUSATE SODIUM/SENNA 50/8.6MG TAB PO SCH ×2 (08:52→20:47)
[2017-09-01] MEDS: POLYETHYLENE (MIRALAX) 17 GM PACK PO SCH ×2 (08:52→20:47)
--- NOTE | 2017-09-01 09:40 | PROGRESS NOTE ---
DATE: 09/01/2017 ORTHOPEDIC COVERAGE NOTE I was asked by nursing while I was happened to at the OR table to look this individual with left lower extremities, recent postop total knee replacement. He has significant swelling and some redness in the entire lower extremity not involving the incision. This is the most of the time typical for postoperative swelling. For some reason he does not have a HERNAN stocking on. At this point, we will obtain ultrasound venous Doppler to rule out DVT and treat appropriately. His attending orthopedist will be by in the near future expediting the assessment of the venous Doppler.
--- NOTE | 2017-09-01 10:26 | DIAGNOSTIC IMAGING REPORT ---
BILATERAL LOWER EXTREMITY VENOUS DOPPLER HISTORY: Acute bilateral leg pain and swelling none available COMPARISON STUDY: None. FINDINGS: There is normal compressibility, flow, and augmentation within the bilateral lower extremity deep venous systems. Moderate subcutaneous edema of the lower extremities. IMPRESSION: No sonographic evidence of deep venous thrombosis within the right or left lower extremity. Electronically signed by: Jet Erwin M.D. 09/01/2017 10:25 AM Dictated Date/Time: 09/01/2017 10:24 AM
--- NOTE | 2017-09-01 10:31 | Orthopedic Progress Note ---
Orthopedic Progress Note Date of Service September 01, 2017. Subjective Post OP Day: 5 Reports: feeling well, complaints (leg feels weak), pain controlled w PO medications, Denies: chest pain, SOB, calf pain Objective calves soft nontender, N/V intact, incision C/D/I, A&O x3, toes mobile LLE: Unchanged lymphedema foot. Expected post surgical swelling. Date Time Temp Pulse Resp B/P (MAP) Pulse Ox O2 Delivery O2 Flow Rate FiO2 09/01/17 07:15 Room Air 09/01/17 07:12 37.1 89 19 116/80 (92) 93 Room Air 08/31/17 22:29 36.8 101 20 136/83 (100) 89 Room Air 08/31/17 20:27 Room Air 08/31/17 15:40 Room Air 08/31/17 15:30 36.7 90 20 137/87 (104) 95 Room Air 08/31/17 14:26 36.9 96 18 132/78 99 08/31/17 13:30 36.3 99 18 159/91 93 08/31/17 13:00 36.6 101 18 160/98 (118) 99 Room Air 08/31/17 13:00 36.6 101 18 160/98 99 08/31/17 12:49 37.0 98 17 157/94 (115) 98 Room Air 08/31/17 12:45 37.0 98 18 157/94 98 08/31/17 12:31 36.5 95 18 151/85 98 08/31/17 11:51 36.7 91 17 137/84 94 08/31/17 11:15 36.8 94 16 133/86 96 08/31/17 11:01 36.8 92 20 158/88 98 08/31/17 10:34 36.4 92 20 149/83 Laboratory Results 24 Hours: Test 09/01/17 05:08 Hematocrit 28.1 % Hemoglobin 9.4 g/dL Additional Notes: Doppler: Neg BLE Assessment & Plan Assessment: S/P left total knee replacement POD 4, acute anemia blood loss improved after transfusion. Plan: WBAT with assistive device and immobilizer to left knee, once good quad control may d/c immobilizer. Does not need to where immobilizer in bed or once sitting. PT/OT Continue DVT prophylaxis: HERNAN hose RLE & SAMANTA foot to thigh LLE, ankle pumps, Lovenox 30mg SQ BID x 3wks, then 325mg ASA bid x 3wks, then return to usual ASA dose. Nursing concern for swelling and redness LLE being evaluated for DVT. Continue Diabetic Diet Appreciate Medicine input: monitor BS, Na, working up urinary incontinence and medical management. Appreciate Psychiatry input for elevated Depakote level & to optimize physiatric meds. Acute anemia blood loss, transfused 2 units pRBC 08/31/17, Hgb improved 9.4. Berman Dcd 08/28/17, Ua neg Continue pain control meds prn Daily dressing change scheduled to start 08/29/17 ( ABDs, Kerlix, and samanta wrap from foot up to mid-thigh to control swelling [employer] Rounder for DC planning. Pt remained in hospital due to acute anemia blood loss, need for transufusion, hyponatremia which has resolved, and Depakote toxicity which has also improved. Awaiting Insurance approval to SNF. Discharge Planning Discharge Planning: custodial facility Pain Management: Percocet DVT Prophylaxis: Sarai Leger Therapy: Physical Therapy, Occupational Therapy
[2017-09-01] MEDS: DIVALPROEX 500 MG EXTENDED RELEASE TAB PO SCH ×2 (12:05→20:47)
[2017-09-01 13:58] VITALS: BP 147/86; PULSE 97; O2SAT 96
[2017-09-01 15:17] VITALS: BP 133/81; PULSE 94; TEMP 36.5; O2SAT 95
[2017-09-01] MEDS: OXYCODONE HCL IR 5 MG TAB (IMMEDIATE RELEASE) PO PRN (17:33)
[2017-09-01] MEDS: ZIPRASIDONE 80 MG CAP PO SCH (17:33)
[2017-09-01] MEDS ORDERED: FUROSEMIDE 40 MG TAB PO ONE (18:30)
--- NOTE | 2017-09-01 20:21 | Progress Note ---
Subjective Date of Service: September 01, 2017. Subjective Pt evaluation today including: conversation w/ patient, physical exam, chart review, lab review, review of studies (dopplers LEs b/l ), review of inpatient medication list Pain: left knee - mild only PO Intake: good/normal Voiding: no voiding problems (incontinence has resolved) patient w/o any complaints during the visit he is disappointed [facility] didn't work out he asks "Can I go home on Saturday?" I reiterated to him [facility] no issues per staff Problem List Medical Problems: (1) Abrasion of knee, right Status: Acute (2) Acidosis Status: Acute (3) Acute paranoia Status: Acute (4) Anxiety Status: Acute (5) Anxiety Status: Acute (6) Bronchitis Status: Acute (7) Chronic acquired lymphedema Status: Acute (8) Constipation Status: Acute (9) Dehydration Status: Acute (10) Erythema multiforme Status: Acute (11) Fall Status: Acute (12) Fall Status: Acute (13) Frequent falls Status: Acute (14) History of pneumonia Status: Acute (15) Injury of left toe Status: Acute (16) Left knee pain Status: Acute (17) Nail avulsion, toe Status: Acute (18) Nausea & vomiting Status: Acute (19) Paranoia Status: Acute (20) Pill esophagitis Status: Acute (21) Pneumonia involving right lung Status: Acute (22) Precordial chest pain Status: Acute (23) Rash Status: Acute (24) Suicidal ideation Status: Acute (25) Vomiting Status: Acute Review of Systems Constitutional: No fever Respiratory: No cough, No shortness of breath Cardiac: + edema, No chest pain Abdomen: No pain Musculoskeletal: + see HPI, + joint pain Male : No dysuria Objective Vital Signs Date Time Temp Pulse Resp B/P (MAP) Pulse Ox O2 Delivery O2 Flow Rate FiO2 09/01/17 19:20 Room Air 09/01/17 15:20 Room Air 09/01/17 15:17 36.5 94 20 133/81 (98) 95 Room Air 09/01/17 13:58 97 96 09/01/17 07:15 Room Air 09/01/17 07:12 37.1 89 19 116/80 (92) 93 Room Air 08/31/17 22:29 36.8 101 20 136/83 (100) 89 Room Air 08/31/17 20:27 Room Air Physical Exam General Appearance: no apparent distress ENT: pharynx normal Neck: + JVD (?) Respiratory/Chest: no respiratory distress, no accessory muscle use, + decreased breath sounds (slightly decreased bases) Cardiovascular: regular rate, rhythm, no gallop, no murmur Abdomen: normal bowel sounds, non tender, soft, no organomegaly Extremities: + pedal edema, + swelling (both LEs, worse on left - mildly worse than previous exams) Neurologic/Psychiatric: alert, + pertinent finding (mildly confused ) Laboratory Results Last 24 Hours Test 08/31/17 20:42 08/31/17 23:43 09/01/17 05:08 09/01/17 08:02 Bedside Glucose 102 mg/dl 116 mg/dl 75 mg/dl White Blood Count 11.07 K/uL Red Blood Count 3.19 M/uL Hemoglobin 9.4 g/dL Hematocrit 28.1 % Mean Corpuscular Volume 88.1 fL Mean Corpuscular Hemoglobin 29.5 pg Mean Corpuscular Hemoglobin Concent 33.5 g/dl RDW Standard Deviation 47.9 fL RDW Coefficient of Variation 15.0 % Platelet Count 200 K/uL Mean Platelet Volume 8.6 fL Nucleated RBC Absolute Count (auto) 0.05 K/uL Nucleated Red Blood Cells % 0.5 % Sodium Level 134 mmol/L Potassium Level 4.0 mmol/L Chloride Level 100 mmol/L Carbon Dioxide Level 28 mmol/L Anion Gap 6.0 mmol/L Blood Urea Nitrogen 12 mg/dl Creatinine 1.03 mg/dl Est Creatinine Clear Calc Drug Dose 95.1 ml/min Estimated GFR () 91.7 Estimated GFR (Non- 79.1 BUN/Creatinine Ratio 11.5 Random Glucose 103 mg/dl Calcium Level 8.5 mg/dl Magnesium Level 2.3 mg/dl Test 09/01/17 12:16 09/01/17 17:11 Bedside Glucose 103 mg/dl 123 mg/dl Assessment and Plan 57yo male - 1. POD #5, s/p left TKR - DVT proph, dispo planning, pain control - defer to primary ortho team. 2. fever - resolved; blood cx's neg; no source of infection; was likely post- op cytokine response. 3. moderate-severe acute blood loss anemia - s/p 2 units of PRBCs with improved & stable H/H today. CBC in am. 4. T2DM - controlled w/o any therapy. follow. Had relative hypoglycemia during this admission but no symptoms from such. 5. hypothyroidism - cont synthroid. TSH 05/2017 wnl. 6. bipolar d/o - appreciate psych consult; they have lowered depakote to 1500mg BID due to depakote toxicity. Agree w/ such. Cont other chronic meds. 7. lymphedema, left leg - chronic. Now with worsening edema right leg. Received lasix yesterday; will give another 20mg dose today. Then resume typical dose of 40mg once daily starting tomorrow. 8. HTN - cont to hold outpatient meds as BPs are low or low-normal due to acute blood loss anemia. 9. asthma - w/o exacerbation - cont outpatient meds. 10. urinary hesitancy - u/a not suggestive of UTI. May have been 2nd to altered mental status/sleepiness. Overall improved/resolved. 11. constipation - resolved. 12. hyponatremia - suspect 2nd to mild SIADH; improved s/p NaCl tab and lasix. Repeat BMP am. 13. encephalopathy - toxic (from depakote) + metabolic (hyponatremia) +/- other causes - resolving. Seems to be approaching baseline. 14. depakote toxicity - resolved. Depakote resumed by psych albeit at lower dose of 1500mg BID. LFTs were normal. Repeat level on 09/05/17. progressing slowly dispo - SNF Continued [facility] stay due to: multiple IV medications needed, other (hyponatremia , depakote tox) Discharge planning: [facility] facility
[2017-09-01] MEDS: PRAVASTATIN SOD 20 MG TAB PO SCH (20:47)
[2017-09-01] MEDS: MONTELUKAST SOD 10 MG TAB PO SCH (20:47)
[2017-09-01] MEDS: BENZTROPINE MESYLATE 1 MG TAB PO SCH (20:47)
[2017-09-01] MEDS: LOXAPINE SUCCINATE 50 MG CAP PO SCH (20:48)
[2017-09-01] MEDS: CLONAZEPAM 1 MG TAB PO SCH (20:48)
[2017-09-02 03:20] VITALS: BP 149/93; PULSE 105; TEMP 36.6; O2SAT 97
[2017-09-02 03:35] VITALS: BP 134/83; PULSE 97
[2017-09-02 05:58] LABS: HEMATOCRIT 27.9 % (42-52); HEMOGLOBIN 9.4 g/dL (14.0-18.0); MEAN CELL VOLUME 89.1 fL (80-100); MEAN CORPUSCULAR HGB CONC 33.7 g/dl (32-36); MEAN PLATELET VOLUME 8.3 fL (7.4-10.4); PLATELET COUNT 233 K/uL (130-400); RED CELL DISTRIBUTION WIDTH CV 15.3 % (11.5-14.5); RED CELL DISTRIBUTION WIDTH SD 49.2 fL (36.4-46.3); WHITE BLOOD COUNT 11.38 K/uL (4.8-10.8)
[2017-09-02] MEDS: LEVOTHYROXINE 175 MCG TAB PO SCH (05:59)
[2017-09-02 06:05] VITALS: PULSE 87; O2SAT 94
[2017-09-02 06:28] LABS: CREATININE 1.08 mg/dl (0.60-1.40)
[2017-09-02 07:05] VITALS: BP 114/75; PULSE 84; TEMP 37; O2SAT 93
[2017-09-02] MEDS: PANTOprazole SOD 40 MG TAB PO SCH (08:25)
[2017-09-02] MEDS: ENOXAPARIN 30 MG/0.3 ML SYR SQ SCH (08:25)
[2017-09-02] MEDS: POLYETHYLENE (MIRALAX) 17 GM PACK PO SCH (08:25)
[2017-09-02] MEDS: FERROUS GLUCONATE 324 MG TAB PO SCH ×2 (08:26→12:05)
[2017-09-02] MEDS: CeleBREX 200 MG CAP PO SCH (08:26)
[2017-09-02] MEDS: BusPIRone 15 MG TAB PO SCH (08:26)
[2017-09-02] MEDS: BUDESONIDE/FORMOTEROL FUMARATE 160/4.5 60 PUFFS/INHALER INH SCH (08:26)
[2017-09-02] MEDS: SODIUM CHLORIDE 1 GM TAB PO SCH (08:26)
[2017-09-02] MEDS: DOCUSATE SODIUM 100 MG CAP PO SCH (08:27)
[2017-09-02] MEDS: DOCUSATE SODIUM/SENNA 50/8.6MG TAB PO SCH (08:27)
[2017-09-02] MEDS: BuPROPion SR 150 MG TABCR PO SCH (08:27)
--- NOTE | 2017-09-02 08:50 | Orthopedic Progress Note ---
Orthopedic Progress Note Date of Service September 02, 2017. Subjective Post OP Day: 6 Reports: feeling well, pain controlled w PO medications, Denies: complaints, chest pain, SOB, nausea / vomiting, light headedness, calf pain Objective calves soft nontender, N/V intact, capillary refill less than 2 sec., dressing C /D/I, incision C/D/I, A&O x3, toes mobile, CMS intact bilateral lower extremity lymphedema. left worse than right. minimal redness to left anterior fan. no signs of infection. negative homans bilaterally. Date Time Temp Pulse Resp B/P (MAP) Pulse Ox O2 Delivery O2 Flow Rate FiO2 09/02/17 07:19 Room Air 09/02/17 07:05 37.0 84 16 114/75 (88) 93 Room Air 09/02/17 06:05 87 94 Room Air 09/02/17 03:35 97 134/83 (100) 09/02/17 03:20 36.6 105 18 149/93 (111) 97 Room Air 09/01/17 23:30 Room Air 09/01/17 19:20 Room Air 09/01/17 15:20 Room Air 09/01/17 15:17 36.5 94 20 133/81 (98) 95 Room Air 09/01/17 13:58 97 96 Laboratory Results 24 Hours: Test 09/02/17 05:45 Hematocrit 27.9 % Hemoglobin 9.4 g/dL Assessment & Plan Assessment: S/P left total knee replacement POD 6, acute anemia blood loss improved after transfusion. Plan: WBAT with assistive device and immobilizer to left knee, once good quad control may d/c immobilizer. Does not need to where immobilizer in bed or once sitting. PT/OT Continue DVT prophylaxis: HERNAN landaverde RLE & SAMANTA foot to thigh LLE, ankle pumps, Lovenox 30mg SQ BID x 3wks, then 325mg ASA bid x 3wks, then return to usual ASA dose. Doppler negative for DVT. Continue Diabetic Diet Appreciate Medicine input: Na 132 this AM. Appreciate Psychiatry input for elevated Depakote level & to optimize physiatric meds. Valproic Acid level 89 this AM. Acute anemia blood loss, transfused 2 units pRBC 08/31/17, Hgb steady at 9.4 this AM. Berman Dcd 08/28/17, Ua neg Continue pain control meds prn Daily dressing changes. Done today. ( ABDs and samanta wrap from foot up to mid- thigh to control swelling) Sales Advisory Manager for DC planning. Pt remained in hospital due to acute anemia blood loss, need for transfusion, hyponatremia which has resolved, and Depakote toxicity which has also improved. Awaiting Insurance approval to [facility] hopefully today [facility]. I, Dr. Alejandra, saw and examined the patient and discussed the management with my PA. I reviewed my PAs note and agree with the documented findings and the plan of care I developed. Discharge Planning Discharge Planning: alf facility Pain Management: Percocet DVT Prophylaxis: Sarai Leger Therapy: Physical Therapy, Occupational Therapy
[2017-09-02] MEDS ORDERED: DPKSR500 PO (09:53)
[2017-09-02] MEDS ORDERED: LVNIS30 SQ (10:36)
[2017-09-02] MEDS: DIVALPROEX 500 MG EXTENDED RELEASE TAB PO SCH (12:05)
[2017-09-02] MEDS: OXYCODONE HCL IR 5 MG TAB (IMMEDIATE RELEASE) PO PRN (12:08)
--- NOTE | 2017-09-02 12:45 | Hospitalist Progress Note ---
Hospitalist Progress Note Date of Service September 02, 2017. Subjective Pt evaluation today including: conversation w/ patient Patient reports has had some urinary incontinence today and did receive an extra dose of Lasix yesterday evening as well as this morning. He is not able to get up on his own very quickly which is why he is having incontinence. Otherwise, denies chest pain, headache, shortness of breath, abdominal pain, nausea, or vomiting. He is moving his bowels. He is unsure if he will go to rehab or not. All Other Systems: Reviewed and Negative Objective Vital Signs Date Time Temp Pulse Resp B/P (MAP) Pulse Ox O2 Delivery O2 Flow Rate FiO2 09/02/17 07:19 Room Air 09/02/17 07:05 37.0 84 16 114/75 (88) 93 Room Air 09/02/17 06:05 87 94 Room Air 09/02/17 03:35 97 134/83 (100) 09/02/17 03:20 36.6 105 18 149/93 (111) 97 Room Air 09/01/17 23:30 Room Air 09/01/17 19:20 Room Air 09/01/17 15:20 Room Air 09/01/17 15:17 36.5 94 20 133/81 (98) 95 Room Air 09/01/17 13:58 97 96 Physical Exam General Appearance: WD/WN, no apparent distress Eyes: normal inspection, sclerae normal ENT: hearing grossly normal Neck: trachea midline Respiratory/Chest: lungs clear, normal breath sounds, no respiratory distress, no accessory muscle use Cardiovascular: regular rate, rhythm, no murmur Abdomen: normal bowel sounds, non tender, soft Extremities: no calf tenderness, + swelling (2+ nonpitting edema to the knees bilaterally) Neurologic/Psychiatric: alert, normal mood/affect Skin: normal color, warm/dry, no rash Laboratory Results Last 24 Hours Test 09/01/17 17:11 09/01/17 20:49 09/02/17 04:08 09/02/17 05:45 Bedside Glucose 123 mg/dl 73 mg/dl 136 mg/dl White Blood Count 11.38 K/uL Red Blood Count 3.13 M/uL Hemoglobin 9.4 g/dL Hematocrit 27.9 % Mean Corpuscular Volume 89.1 fL Mean Corpuscular Hemoglobin 30.0 pg Mean Corpuscular Hemoglobin Concent 33.7 g/dl RDW Standard Deviation 49.2 fL RDW Coefficient of Variation 15.3 % Platelet Count 233 K/uL Mean Platelet Volume 8.3 fL Sodium Level 132 mmol/L Potassium Level 4.0 mmol/L Chloride Level 100 mmol/L Carbon Dioxide Level 29 mmol/L Anion Gap 3.0 mmol/L Blood Urea Nitrogen 17 mg/dl Creatinine 1.08 mg/dl Est Creatinine Clear Calc Drug Dose 90.7 ml/min Estimated GFR () 86.6 Estimated GFR (Non- 74.7 BUN/Creatinine Ratio 15.3 Random Glucose 107 mg/dl Calcium Level 8.0 mg/dl Test 09/02/17 08:09 09/02/17 12:26 Bedside Glucose 97 mg/dl 79 mg/dl Assessment and Plan 57yo male - 1. POD #6, s/p left TKA - DVT proph, dispo planning, pain control - defer to primary ortho team. 2. fever - resolved; blood cx's neg; no source of infection; was likely post- op cytokine response. 3. moderate-severe acute blood loss anemia - s/p 2 units of PRBCs with improved & stable H/H today. 4. T2DM - controlled w/o any therapy. follow. Had relative hypoglycemia during this admission but no symptoms from such. 5. hypothyroidism - cont synthroid. TSH 05/2017 wnl. 6. bipolar d/o - appreciate psych consult; they have lowered depakote to 1500mg BID due to depakote toxicity. Agree w/ such. Cont other chronic meds. -Check Depakote level on 09/05 at the rehab is recommended and was added to the discharge instructions 7. lymphedema, left leg - chronic. Now with worsening edema right leg. Received lasix and extra dose yesterday, and now back on his typical dose of 40mg once daily 8. HTN - cont to hold outpatient meds as BPs are low or low-normal due to acute blood loss anemia. 9. asthma - w/o exacerbation - cont outpatient meds. 10. urinary hesitancy and now with incontinence likely secondary to extra diuretic use and inability to get to the toilet quickly- u/a not suggestive of UTI. May have been 2nd to altered mental status/sleepiness. Overall improved/ resolved. 11. constipation - resolved. 12. Acute on chronic hyponatremia -lowest sodium level was 127, suspect 2nd to mild SIADH; improved to 132 now which is around his baseline s/p NaCl tab and lasix. -We will stop salt tablets on discharge -Continue home Lasix as above 13. encephalopathy - toxic (from depakote) + metabolic (hyponatremia) +/- other causes - resolving. Seems to be approaching baseline. 14. depakote toxicity - resolved. Depakote resumed by psych albeit at lower dose of 1500mg BID. LFTs were normal. Repeat level on 09/05/17. progressing slowly dispo - SNF when approved The hospitalist service will sign off at this time as all medical conditions are stable and he is medically stable for discharge from our standpoint. Please reconsult if any questions or acute concerns arise.
--- NOTE | 2017-09-02 14:20 | [facility] Operative Report ---
Operative Report Operative Date August 27, 2017. Pre-Operative Diagnosis Left Knee Osteoarthritis Procedure(s) Performed left total knee arthroplasty Surgeon Dr. Fabiano Alejandra Aquatics Coordinator Surgeon(s) Dr. Jose Miguel Alvares; Maritza العراقي PA-C Estimated Blood Loss 200ml Findings DJD of left knee Fluids 2400 Specimens A.) Left Knee Bone and Tissue Complication(s) See Dr Alejandra operative report Disposition Recovery Room / PACU (Stable) Description of Procedure Assisted during procedure and with wound closure I attest to the content of the Intraoperative Record and any orders documented therein. Any exceptions are noted below.
[2017-09-02 15:35] VITALS: BP 132/72; PULSE 98; TEMP 36.8; O2SAT 92
[2017-09-02 15:46] VITALS: BP 132/72; PULSE 98; TEMP 36.8; O2SAT 92
--- NOTE | 2017-09-04 16:57 | Discharge Summary ---
Orthopedic Discharge Summary Admission Date/Reason August 27, 2017 at 08:10 Left Knee Djd. Discharge Date/Disposition September 02, 2017 [facility] facility Diagnosis Principal Diagnosis: left knee end stage degenerative joint disease Secondary Diagnoses/Problems: schizoaffective disorder bipolar type Procedure(s) Performed left total knee replacement Consultations medicine, psychiatry Medication Reconciliation Lovenox 30mg SQ q 12hrs total 21 days post-op, then ASA 325 mg BID x 21 days Percocet 5/325mg 1-2 po q 4-6hrs prn pain disp #30 with no refills Psych reduced Depakate ER to 1500mg po BID Vit C 200mg po BID x 2wks Iron 325mg po BID x 14 days Vit C 250mg po BID x 14 days Otherwise patient is to continue Home Medications per Medication Reconciliation Admission Physical Exam As per Admitting History & Physical. Hospital Course 57 yr old male admitted to [facility] s/p LTKR on 08-27-2017. No intra-operative complications. Post-op xrays stable. Tolerated diabetic diet. Pain controlled with PO medication. Participated in daily PT/OT. Required knee immobilizer through out hospital stay and upon DC secondary to poor quad control. DVT prophylaxis with hilary hoes, foot pumps, lovenox. Patient with history of chronic lymphedema. Somewhat worse post-op. During stay doppler performed to L LE and neg for blood clot. Also patient was treated with lasix. Post-op fever resolved, blood cxs negative. Moderate to severe acute blood loss anemia and received 2units of PRBCs and upon discharge Hgb was 9.4 and stable. Intially after surgery on POD 0 was hypoglycemic. Resolved with D5 and blood sugars improved. Blood pressure was also low normal due to anemia and outpatient meds held. Urinary hesitancy with neg UA. Overall improved. Constipation resolved. Hyponatremia improved with NaCl tabs and lasix with NA 132 upon DC. Patient did have a flare of psychiatric issues and psychiatry was consulted. Hx of schizoaffective disorder bipolar type. Diagnosed with depakote toxicity. Depakote adjusted and levels monitored. Within normal range upon DC. LFTS were also normal. Repeat level was recommended to be done on 18. Because of patients co-morbidities and living alone placement was required upon discharge. He was accepted into [facility]. He left hospital on POD 6. From orthopedic standpoint ROM of knee to improve flexion and quad strengthening were stressed. He was to use knee immobilizer while ambulating with walker until better quad control. His left leg was to have SAMANTA foot to mid thigh to control swelling. Able to shower. He has a follow-up scheduled with Dr Alejandra 10-14 days post-op for staple removal. From psych perspective it was recommended he have an appt with SARAH Lopez and to follow up with outpatient providers at [facility] psych [facility]. Discharge Instructions Please refer to the electronic Patient Visit Report (Discharge Instructions) for additional information.
== END 2017-09-02 16:53 | DRG 469 ==
LOC: C.ACU 07:34 → C.3E 08:10 → ENRESERV 15:35
PROVIDERS: ADMIT Orthopaedic Surgery Sports Medicine; ATTEND Orthopaedic Surgery Sports Medicine
PROC: 0SRD0J9 Replacement of Left Knee Joint with Synthetic Substitute, Cemented, Open Approach (ICD-10-PCS; principal; 2017-08-27 09:40)
DX: M17.12 Unilateral primary osteoarthritis, left knee (principal); G92 Toxic encephalopathy; D62 Acute posthemorrhagic anemia; E87.1 Hypo-osmolality and hyponatremia; J45.909 Unspecified asthma, uncomplicated; I10 Essential (primary) hypertension; F31.9 Bipolar disorder, unspecified; K21.9 Gastro-esophageal reflux disease without esophagitis; E03.9 Hypothyroidism, unspecified; F20.9 Schizophrenia, unspecified; F41.9 Anxiety disorder, unspecified; E78.5 Hyperlipidemia, unspecified; T42.6X1A Poisoning by other antiepileptic and sedative-hypnotic drugs, accidental (unintentional), initial encounter; R39.11 Hesitancy of micturition; I07.1 Rheumatic tricuspid insufficiency; I34.0 Nonrheumatic mitral (valve) insufficiency; G47.30 Sleep apnea, unspecified; I87.2 Venous insufficiency (chronic) (peripheral); H57.8 Other specified disorders of eye and adnexa; E11.649 Type 2 diabetes mellitus with hypoglycemia without coma; K59.00 Constipation, unspecified; Z79.52 Long term (current) use of systemic steroids; Z79.82 Long term (current) use of aspirin; Z79.84 Long term (current) use of oral hypoglycemic drugs; Z79.899 Other long term (current) drug therapy; Z83.3 Family history of diabetes mellitus; Z81.8 Family history of other mental and behavioral disorders; Z82.49 Family history of ischemic heart disease and other diseases of the circulatory system; Z83.79 Family history of other diseases of the digestive system

== ENCOUNTER 2017-09-04 12:07 | Emergency (ER) | payer OTHER ==
[~2017-09-04] VITALS: Ht 182.9 cm; Wt 111.3 kg
[~2017-09-04 12:07] MED LIST changes: +ASCO250C3 PO; -ASPI81TA28 PO; +BSP15 PO; -BUPIVACAINE 0.5 % 5 MG/1 ML PF 10ML VIAL ONE; -BUSP-8 PO; -CEFAZOLIN 2000MG IV PUSH 15 ML IV SCH; -CeleBREX 200 MG CAP PO SCH; -DPKSR/500 PO; +DPKSR500 PO; +FERR1TAB13 PO; -LACTATED RINGER'S 1000ML 1,000 ML IV SCH; -LACTATED RINGER'S 1000ML 500 ML IV SCH; -LACTATED RINGER'S 1000ML IV SCH; +LVNIS30 SQ; -NAPR-1169 PO; +OXYC-57 PO; -PRED20TA PO; -ROPIVACAINE 0.5% 5 MG/ML 30 ML VIAL ONE; -ROPIVACAINE 5MG/ML 30 ML 150 MG, BUPIVACAINE 0.5% MPF INJ 30 ML, EpINEphrine HCL INJ 0.... INFIL SCH; -SCOPOLAMINE 1.5 MG TDSY TD SCH; +SYMIN INH; -ULT50 PO
[2017-09-04 12:13] VITALS: TEMP 37; Ht 182.9 cm; Wt 111.3 kg
--- NOTE | 2017-09-04 13:08 | DIAGNOSTIC IMAGING REPORT ---
LEFT KNEE 3 VIEWS HISTORY: left knee pain, fall, recent Total knee replacement COMPARISON: None. FINDINGS: There is a constrained longstem left total knee arthroplasty. The hardware is intact. No acute fracture or dislocation. Anterior midline skin matty are noted consistent with recent postoperative change. Diffuse soft tissue swelling and a small knee effusion. IMPRESSION: 1. No acute fracture or dislocation within the left knee. 2. Additional findings as described above including diffuse soft tissue swelling and a small knee effusion may be related to the recent total knee arthroplasty.. Electronically signed by: Errol Naik M.D. 09/04/2017 1:07 PM Dictated Date/Time: 09/04/2017 1:05 PM
--- NOTE | 2017-09-04 13:13 | EMERGENCY ROOM VISIT NOTE ---
History First contact with patient: 12:17 Chief Complaint: FALL Stated Complaint: FALL History of Present Illness The patient is a 57 year old male who presents to the Emergency Room with complaints of fall at home. The patient states he is uncertain if he fell this morning or this afternoon, but he believes he fell while getting out of the shower. He is uncertain if he slipped for his knee gave out on him. He believes he may have hit his head. He states he is experiencing pulsating pain in his left lower extremity. He describes no increased swelling or pain in the extremity, however recently had a total knee replacement performed on August 27. He was discharged from our facility on September 02, and sent to [facility]. He was discharged early from [facility] due to flare-up of his psychological conditions. The patient is very difficult to get any further history from, as he is falling asleep throughout the encounter. He states "I have been sleeping during the day and awake at night." He states he was able to get himself up and to a chair prior to calling 911 for transport to the hospital. Review of Systems A complete 10 point review of systems was reviewed with the patient with pertinent positives and negatives as per history of present illness. All else were negative. 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 (18) Lymphedema of both lower extremities (19) Mitral regurgitation (20) PNA (pneumonia) (21) Pneumonia (22) Pneumonia (23) Rib pain on left side (24) Schizoaffective disorder, bipolar type (25) Schizophrenia (26) Sepsis (27) Sepsis (28) Sleep apnea (29) SOB (shortness of breath) (30) Soft tissue disorder (31) Tricuspid regurgitation (32) Unable to void (33) UTI (urinary tract infection) (34) Weakness Family History Diabetes mellitus Gallbladder disease Hypertension Social History Smoking Status: Never Smoker Alcohol Use: none Drug Use: none Marital Status: single Housing Status: lives alone Occupation Status: disabled Current/Historical Medications Scheduled Ascorbic Acid (Vitamin C), 250 MG PO BID Benztropine Mesylate (Benztropine Mesylate), 2 MG PO HS Budesonide/Formoterol Fumarate (Symbicort 160-4.5 Mcg/Act), 2 PUFFS INH BID Bupropion HCl (Bupropion HCl Sr), 150 MG PO BID Buspirone HCl (Buspirone HCl), 30 MG PO BID Clonazepam (Klonopin), 2 MG PO HS Divalproex Sodium (Divalproex Sodium ER), 1,500 MG PO BID@1200,2100 Enoxaparin (Lovenox), 30 MG SQ Q12H Ferrous Sulfate (Kp Ferrous Sulfate), 1 TAB PO BID Furosemide (Lasix), 40 MG PO QAM Levothyroxine Sodium (Levothyroxine Sodium), 175 MCG PO QAM Lisinopril (Lisinopril), 10 MG PO QAM Loratadine (Claritin), 10 MG PO QAM Loxapine Succinate (Loxapine), 100 MG PO HS Metformin Hcl (Glucophage), 850 MG PO BID Montelukast Sodium (Singulair), 10 MG PO HS Omeprazole (Prilosec), 20 MG PO QAM Polyethylene Glycol 3350 (Miralax), 17 GM PO BID Potassium Ext Rel (Klor-Con), 20 MEQ PO BID Pravastatin Sodium (Pravachol), 20 MG PO HS Ranitidine (Zantac), 150 MG PO BID Sennosides-Docusate Sodium (Senna Plus), 1 TAB PO BID Ziprasidone Hcl (Geodon), 160 MG PO QDD Scheduled PRN Albuterol Hfa (Ventolin Hfa), 2-4 PUFFS INH UD PRN for ASTHMA Oxycodone/Acetaminophen 5MG/325MG (Percocet 5MG/325MG), 1-2 TABLETS PO Q4H PRN for Pain Miscellaneous Medications Magnesium Oxide (Magnesium) Physical Exam Vital Signs Date Time Temp Pulse Resp B/P (MAP) Pulse Ox O2 Delivery O2 Flow Rate FiO2 09/04/17 17:12 99 09/04/17 16:50 86 92/60 90 Room Air 09/04/17 15:30 82 96/62 90 Room Air 09/04/17 13:59 84 22 127/87 98 Room Air 09/04/17 12:13 37.0 67 16 107/65 98 Room Air Physical Exam VITALS: Vitals are noted on the nurse's note and reviewed by myself. Vital signs stable. GENERAL: This is a 57-year-old obese white male, in no acute distress, nondiaphoretic, well-developed well-nourished. SKIN: Surgical scar in the mid-anterior aspect of the left knee with matty in tact. Mild bleeding oozing through the matty, but no break in the skin or dehiscence. 2+ edema of the left lower extremity with mild erythema. The skin was otherwise without rashes, erythema, edema, or bruising. There is no tenting of the skin. Capillary reflex less than 2 seconds. HEAD: Normocephalic atraumatic. EARS: External auditory canals clear, tympanic membranes pearly sommers without erythema or effusion bilaterally. EYES: Pupils equal round and reactive to light and accommodation. Conjunctivae without injection, sclerae without icterus. Extraocular movements intact. NOSE: Patent, turbinates without inflammation or discharge. No sinus tenderness. MOUTH: Mucous membranes moist. Tonsils are not enlarged. Pharynx without erythema or exudate. Uvula midline. Airway patent. Tongue does not deviate. NECK: Supple without nuchal rigidity. No lymphadenopathy. No thyromegaly. Cervical spine is nontender. No JVD. HEART: Regular rate and rhythm without murmurs gallops or rubs. LUNGS: Clear to auscultation bilaterally without wheezes, rales or rhonchi. No dullness to percussion. No retractions or accessory muscle use. ABDOMEN: Positive bowel sounds x 4. Normal tympanic percussion. Soft, nontender, without masses or organomegaly. Causey sign negative. No guarding or rebound tenderness. MUSCULOSKELETAL: No muscle atrophy, erythema, or edema noted. Full range of motion without joint tenderness in all extremities. No tenderness to palpation. Normal gait. Strength 5/5 throughout. NEURO: Patient was alert and oriented to person place and time. Normal sensation to light and sharp touch. Deep tendon reflexes 2+ throughout. No focal neurological deficits. Medical Decision & Procedures ER Provider Diagnostic Interpretation: LEFT KNEE 3 VIEWS HISTORY: left knee pain, fall, recent Total knee replacement COMPARISON: None. FINDINGS: There is a constrained longstem left total knee arthroplasty. The hardware is intact. No acute fracture or dislocation. Anterior midline skin matty are noted consistent with recent postoperative change. Diffuse soft tissue swelling and a small knee effusion. IMPRESSION: 1. No acute fracture or dislocation within the left knee. 2. Additional findings as described above including diffuse soft tissue swelling and a small knee effusion may be related to the recent total knee arthroplasty.. Electronically signed by: Errol Naik M.D. 09/04/2017 1:07 PM Dictated Date/Time: 09/04/2017 1:05 PM L VENOUS DOPP LOWER EXT UNILAT HISTORY: 57 years-old Male left leg edema, recent total knee replacement acute left lower extremity pain and swelling COMPARISON: Left knee radiographs of same day TECHNIQUE: Multiple real-time sonographic images of the left lower extremity deep venous structures were obtained assessing grayscale appearance, color and spectral flow FINDINGS: There is normal compressibility, flow, phasicity and augmentation of the left lower extremity deep venous structures. Mild subcutaneous edema of the left lower extremity with the calf vessels suboptimally visualized. IMPRESSION: No sonographic evidence of deep venous thrombosis. The above report was generated using voice recognition software. It may contain grammatical, syntax or spelling errors. Electronically signed by: Jet Erwin M.D. 09/04/2017 1:56 PM Dictated Date/Time: 09/04/2017 1:55 PM HEAD WITHOUT CONTRAST (CT) CT DOSE: 614.27 mGy.cm HISTORY: Trauma fall, head injury, on lovenox TECHNIQUE: Multiaxial CT images of the head were performed without the use of intravenous contrast. A dose lowering technique was utilized adhering to the principles of ALARA. Comparison: 12/04/2016 Findings: The paranasal sinuses and mastoid air cells are clear. The calvarium and skull base are intact. The ventricles and sulci are within normal limits. There is no mass, hematoma, midline shift, or acute infarct. Generalized atrophy and ventricular prominence. Impression: No acute intracranial abnormality. Chronic ventricular prominence raise the possibility of normal pressure hydrocephalus. The above report was generated using voice recognition software. It may contain grammatical, syntax or spelling errors. Electronically signed by: Jean Marie Prather M.D. 09/04/2017 1:15 PM Dictated Date/Time: 09/04/2017 1:13 PM Laboratory Results Test 09/04/17 17:36 Bedside Glucose 87 mg/dl (70-99) ED Course The patient was seen and evaluated as above. Imaging studies performed and reviewed by myself and radiologist as above. I contacted [facility]. I spoke with RADHA Salas regarding the patient presentation. Advised her of the findings of studies performed here in the emergency department, and discussed with her that we would be finding placement for the patient in a rehab facility. She did request that I contact her back to inform her of the facility the patient is going to. I discussed this conversation and all findings of testing with the patient at bedside. Throughout the course of care, the supervisor case loading was involved and worked to find the patient a bed at a rehab facility. Please see rifle case repairer documentation. The patient was re-assessed. He was ordered a food tray. He became agitated that I ordered a diabetic diet tray for him as "my blood sugar always is 20-30 when I'm here." His BSG was checked and normal. He was given his tray. Discharge instructions reviewed. The patient was discharged home via taxi in good condition and will have home health follow-up with him. Medical Decision This is a 57-year-old male patient presents the emergency department today via ambulance complaining of left lower extremity swelling and pain. He does report a fall in the bathroom, and states he did strike his head. While speaking with the patient, history was difficult to elicit. Imaging studies performed as above and were without acute abnormalities. I did speak with the orthopedics office to advise them of the patient condition. I do not feel that orthopedics needs to evaluate the patient at this time. They were in agreement. The patient was discharged from/signed out of the previous rehab facility due to psychiatric conditions. He is requesting to go to a different rehab facility. Case management spent a significant amount of time speaking with the patient and various facilities in our area. Finally, it was decided that the patient could safely go home with home health care. The patient does have home health care already established, so case management will work to have them follow-up regarding the patient's rehab needs with his recent knee surgery. All questions were answered to the patient's satisfaction. Etiologies such as soft tissue injury, fracture, dislocation, neurovascular compromise, compartment syndrome, as well as others were entertained. The chart was completed utilizing Dragon Speech voice recognition software. Grammatical errors, random word insertions, pronoun errors, and incomplete sentences are an occasional consequence of this system due to software limitations, ambient noise, and hardware issues. Any formal questions or concerns about the content, text, or information contained within the body of this dictation should be directly addressed to the provider for clarification. Medication Reconcilliation Current Medication List: was personally reviewed by me Blood Pressure Screening Patient's blood pressure: Normal blood pressure Impression Primary Impression: Fall Additional Impressions: Left knee pain Closed head injury Departure Information Dispostion Home / Self-Care Condition GOOD Referrals Pro,Yohannes Beyer M.D. (PCP) Fabiano Alejandra MD Patient Instructions Knee Replace Total Dc, My [facility] [place] [facility] Additional Instructions You were seen and evaluated in the emergency department today for a fall and knee pain. Imaging including x-ray, ultrasound, and CT scan of your head was performed and all was negative for acute findings. Case management has been working to establish you with home nursing. This should be finalized tomorrow morning. Please follow all discharge instructions as outlined to you by orthopedics. Return to the emergency department for worsening pain, swelling, falls, headache , dizziness, lightheadedness, nausea, vomiting, chest pain, dyspnea, slurred speech, facial droop, weakness, numbness or tingling, or other concerning symptoms. Problem Qualifiers Primary Impression: Fall Encounter type: initial encounter Qualified Codes: W19.XXXA - Unspecified fall, initial encounter Additional Impressions: Left knee pain Chronicity: acute Qualified Codes: M25.562 - Pain in left knee Closed head injury Encounter type: initial encounter Qualified Codes: S09.90XA - Unspecified injury of head, initial encounter
--- NOTE | 2017-09-04 13:16 | DIAGNOSTIC IMAGING REPORT ---
HEAD WITHOUT CONTRAST (CT) CT DOSE: 614.27 mGy.cm HISTORY: Trauma fall, head injury, on lovenox TECHNIQUE: Multiaxial CT images of the head were performed without the use of intravenous contrast. A dose lowering technique was utilized adhering to the principles of ALARA. Comparison: 12/04/2016 Findings: The paranasal sinuses and mastoid air cells are clear. The calvarium and skull base are intact. The ventricles and sulci are within normal limits. There is no mass, hematoma, midline shift, or acute infarct. Generalized atrophy and ventricular prominence. Impression: No acute intracranial abnormality. Chronic ventricular prominence raise the possibility of normal pressure hydrocephalus. The above report was generated using voice recognition software. It may contain grammatical, syntax or spelling errors. Electronically signed by: Jean Marie Prather M.D. 09/04/2017 1:15 PM Dictated Date/Time: 09/04/2017 1:13 PM
--- NOTE | 2017-09-04 13:58 | DIAGNOSTIC IMAGING REPORT ---
L VENOUS DOPP LOWER EXT UNILAT HISTORY: 57 years-old Male left leg edema, recent total knee replacement acute left lower extremity pain and swelling COMPARISON: Left knee radiographs of same day TECHNIQUE: Multiple real-time sonographic images of the left lower extremity deep venous structures were obtained assessing grayscale appearance, color and spectral flow FINDINGS: There is normal compressibility, flow, phasicity and augmentation of the left lower extremity deep venous structures. Mild subcutaneous edema of the left lower extremity with the calf vessels suboptimally visualized. IMPRESSION: No sonographic evidence of deep venous thrombosis. The above report was generated using voice recognition software. It may contain grammatical, syntax or spelling errors. Electronically signed by: Jet Erwin M.D. 09/04/2017 1:56 PM Dictated Date/Time: 09/04/2017 1:55 PM
[2017-09-04 18:53] VITALS: BP 131/107; PULSE 91; O2SAT 94
== END 2017-09-04 18:55 | disposition home or self-care (01) ==
LOC: EDBD 12:07 → C.EDC 12:08
DX: M25.562 Pain in left knee (principal); S09.90XA Unspecified injury of head, initial encounter; W18.30XA Fall on same level, unspecified, initial encounter; Y92.002 Bathroom of unspecified non-institutional (private) residence as the place of occurrence of the external cause; J45.909 Unspecified asthma, uncomplicated; I12.9 Hypertensive chronic kidney disease with stage 1 through stage 4 chronic kidney disease, or unspecified chronic kidney disease; F31.9 Bipolar disorder, unspecified; E11.22 Type 2 diabetes mellitus with diabetic chronic kidney disease; N18.9 Chronic kidney disease, unspecified; E78.5 Hyperlipidemia, unspecified; E03.9 Hypothyroidism, unspecified; F20.9 Schizophrenia, unspecified; F25.0 Schizoaffective disorder, bipolar type; Z96.652 Presence of left artificial knee joint; Z79.01 Long term (current) use of anticoagulants; Z79.84 Long term (current) use of oral hypoglycemic drugs; Z79.899 Other long term (current) drug therapy

== ENCOUNTER 2017-09-05 16:24 | Emergency (ER) | payer OTHER ==
[~2017-09-05] VITALS: Ht 182.9 cm; Wt 108.2 kg
[2017-09-05 16:39] VITALS: BP 126/83; PULSE 72; TEMP 37; O2SAT 98; Ht 182.9 cm; Wt 108.2 kg
--- NOTE | 2017-09-05 16:58 | EMERGENCY ROOM VISIT NOTE ---
History First contact with patient: 16:27 Chief Complaint: BLEEDING Stated Complaint: BLEEDING FOR INCISION SITE ON KNEE Nursing Triage Summary: Pt states he had knee surgery a couple weeks ago was here yesterday because he fell on it, today went to the bank and overhead crane truck loader told him his knee was bleeding, small amt of blood noted middle of matty, pt denies any pain. History of Present Illness The patient is a 57 year old male who presents to the Emergency Room with complaints of bleeding from his right knee incision. The patient had a total knee replacement performed [address] Alejandra. He was initially discharged to [facility], but states that he "did not like their attitudes" and left after only one day. He reports that yesterday, he fell and was evaluated here. He states that he is supposed to have home health to come and help him postoperatively, however they have not been there yet. He believes someone from Dr. Alejandra's office may be arranging this. He reports that he was at the bank today and the incision started to bleed slightly. He called 911 and came here. He denies any pain or any new complaints. Review of Systems A complete 10 point review of systems was reviewed with the patient with pertinent positives and negatives as per history of present illness. All else were negative. 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 (18) Lymphedema of both lower extremities (19) Mitral regurgitation (20) PNA (pneumonia) (21) Pneumonia (22) Pneumonia (23) Rib pain on left side (24) Schizoaffective disorder, bipolar type (25) Schizophrenia (26) Sepsis (27) Sepsis (28) Sleep apnea (29) SOB (shortness of breath) (30) Soft tissue disorder (31) Tricuspid regurgitation (32) Unable to void (33) UTI (urinary tract infection) (34) Weakness Family History Diabetes mellitus Gallbladder disease Hypertension Social History Smoking Status: Unknown if Ever Smoked Alcohol Use: none Drug Use: none Marital Status: single Housing Status: lives alone Occupation Status: disabled Current/Historical Medications Scheduled Ascorbic Acid (Vitamin C), 250 MG PO BID Benztropine Mesylate (Benztropine Mesylate), 2 MG PO HS Budesonide/Formoterol Fumarate (Symbicort 160-4.5 Mcg/Act), 2 PUFFS INH BID Bupropion HCl (Bupropion HCl Sr), 150 MG PO BID Buspirone HCl (Buspirone HCl), 30 MG PO BID Clonazepam (Klonopin), 2 MG PO HS Divalproex Sodium (Divalproex Sodium ER), 1,500 MG PO BID@1200,2100 Enoxaparin (Lovenox), 30 MG SQ Q12H Ferrous Sulfate (Kp Ferrous Sulfate), 1 TAB PO BID Furosemide (Lasix), 40 MG PO QAM Levothyroxine Sodium (Levothyroxine Sodium), 175 MCG PO QAM Lisinopril (Lisinopril), 10 MG PO QAM Loratadine (Claritin), 10 MG PO QAM Loxapine Succinate (Loxapine), 100 MG PO HS Metformin Hcl (Glucophage), 850 MG PO BID Montelukast Sodium (Singulair), 10 MG PO HS Omeprazole (Prilosec), 20 MG PO QAM Polyethylene Glycol 3350 (Miralax), 17 GM PO BID Potassium Ext Rel (Klor-Con), 20 MEQ PO BID Pravastatin Sodium (Pravachol), 20 MG PO HS Ranitidine (Zantac), 150 MG PO BID Sennosides-Docusate Sodium (Senna Plus), 1 TAB PO BID Ziprasidone Hcl (Geodon), 160 MG PO QDD Scheduled PRN Albuterol Hfa (Ventolin Hfa), 2-4 PUFFS INH UD PRN for ASTHMA Oxycodone/Acetaminophen 5MG/325MG (Percocet 5MG/325MG), 1-2 TABLETS PO Q4H PRN for Pain Miscellaneous Medications Magnesium Oxide (Magnesium) Physical Exam Vital Signs Date Time Temp Pulse Resp B/P (MAP) Pulse Ox O2 Delivery O2 Flow Rate FiO2 09/05/17 16:39 37.0 72 18 126/83 98 Room Air Physical Exam VITALS: Vitals are noted on the nurse's note and reviewed by myself. Vital signs stable. GENERAL: This is a 57-year-old male, in no acute distress, nondiaphoretic, well- developed well-nourished. SKIN: There is a vertical stapled surgical incision to the left anterior knee. There is a tiny amount of blood from the center of the incision. HEART: Regular rate and rhythm without murmurs gallops or rubs. LUNGS: Clear to auscultation bilaterally without wheezes, rales or rhonchi. MUSCULOSKELETAL: Stapled incision as described above. Moderate edema of the left knee. 3+ pitting edema of the left lower extremity. 2+ pitting edema of the right lower extremity. Full range of motion of the knee. NEURO: Patient was alert and oriented to person place and time. Distal sensation intact. Medical Decision & Procedures Medications Administered Medications (Trade) Dose Ordered Sig/Daniel Route Start Time Stop Time Status Last Admin Dose Admin Miscellaneous (Lovenox Teaching Kit) 1 ea NOW STAT N/A 09/05/17 17:27 09/05/17 17:28 DC 09/05/17 17:53 1 EA Medical Decision Differential diagnosis includes postoperative infection, DVT, need for social science teacher, wound dehiscence, among others. The patient was evaluated as above. There is no wound dehiscence. The matty are in place and the wound is well appearing. There is no evidence of infection. He does have moderate swelling of the left lower extremity as well as the right lower extremity, however has a history of lymphedema. The patient was seen here yesterday and had a full evaluation. The provider at that time did speak with the orthopedic physician employee relations assistant personal banking assistant. There was concern that the patient did not have adequate help at home and they were able to arrange home health, although the patient presents today stating that they have not been to his house at this time. The airport operations duty manager was able to speak with the patient's case managers, who reports that the patient has home health scheduled this evening and just a few hours. They did report that Dr. Alejandra's office wanted to ensure that the patient was using his Lovenox injections as prescribed. The patient reports he does not know how to use his Lovenox injections and was given a teaching kit and instructed here on how to give these injections. He was discharged home in a taxi to meet with his home health nurse. He has follow-up scheduled with his orthopedic surgeon. He will return here for any worsening or new/concerning symptoms. He verbalized understanding and was discharged home in good condition. Medication Reconcilliation Current Medication List: was personally reviewed by me Blood Pressure Screening Patient's blood pressure: Normal blood pressure Impression Primary Impression: Postoperative bleeding from incision Departure Information Dispostion Home / Self-Care Condition GOOD Referrals Pro,Yohannes Beyer M.D. (PCP) Fabiano Alejandra MD Patient Instructions My [facility] Additional Instructions Follow-up with Dr. Alejandra as scheduled. Home health will be visiting this evening around 615. Continue using the Lovenox injections as directed. Return to the emergency department for any worsening or new/concerning symptoms.
[2017-09-05] MEDS ORDERED: LOVENOX TEACHING KIT STA (17:27)
== END 2017-09-05 18:04 | disposition home or self-care (01) ==
LOC: EDBD 16:24 → C.EDD 16:25
DX: M96.830 Postprocedural hemorrhage of a musculoskeletal structure following a musculoskeletal system procedure (principal); Z96.651 Presence of right artificial knee joint; I12.9 Hypertensive chronic kidney disease with stage 1 through stage 4 chronic kidney disease, or unspecified chronic kidney disease; F31.9 Bipolar disorder, unspecified; N18.9 Chronic kidney disease, unspecified; E11.22 Type 2 diabetes mellitus with diabetic chronic kidney disease; E78.5 Hyperlipidemia, unspecified; E03.9 Hypothyroidism, unspecified; F20.9 Schizophrenia, unspecified; F25.9 Schizoaffective disorder, unspecified; J45.909 Unspecified asthma, uncomplicated; Z79.01 Long term (current) use of anticoagulants; Z79.84 Long term (current) use of oral hypoglycemic drugs

== ENCOUNTER 2017-09-06 17:52 | Emergency (ER) | payer OTHER ==
[2017-09-06 17:57] VITALS: TEMP 36.7; Ht 182.9 cm
[2017-09-06] MEDS ORDERED: ENOXAPARIN 30 MG/0.3 ML SYR SQ ONE (18:30)
--- NOTE | 2017-09-06 18:33 | EMERGENCY ROOM VISIT NOTE ---
History Report prepared by Beny: Adan Longoria Under the Supervision of: Dr. Oliver Aly M.D. First contact with patient: 18:03 Chief Complaint: WOUND INFECTION Stated Complaint: BLEEDING IN AREA OF SURGURY History of Present Illness The patient is a 57 year old white male with a past medical history of a TKA performed by Dr. Alejandra from [facility] 10 days ago who presents to the ED with a cc of intermittent bleeding beginning yesterday. Patient states that he has leg swelling. He states that elevation helps relieve the leg swelling. Patient states that he was referred to ER by his home help after his incision site began "oozing". Positive symptoms include intermittent chills. Negative symptoms include nausea, vomiting, fevers, and leg pain. Patient adds that he forgot to take his Lovenox medication today. He states that he is supposed to take it twice a day. Source of History: patient Onset: Yesterday Position: leg (left) Timing: intermittent Modifying Factors (Relieving): elevation Associated Symptoms: + chills (Intermittent), No fevers, No nausea, No vomiting Note: Patient denies leg pain. Review of Systems See HPI for pertinent positives and negatives. A total of ten systems were reviewed and were otherwise negative. 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 (18) Lymphedema of both lower extremities (19) Mitral regurgitation (20) PNA (pneumonia) (21) Pneumonia (22) Pneumonia (23) Rib pain on left side (24) Schizoaffective disorder, bipolar type (25) Schizophrenia (26) Sepsis (27) Sepsis (28) Sleep apnea (29) SOB (shortness of breath) (30) Soft tissue disorder (31) Tricuspid regurgitation (32) Unable to void (33) UTI (urinary tract infection) (34) Weakness Family History Diabetes mellitus Gallbladder disease Hypertension Social History Smoking Status: Never Smoker Alcohol Use: none Drug Use: none Marital Status: single Housing Status: lives alone Occupation Status: disabled Current/Historical Medications Scheduled Ascorbic Acid (Vitamin C), 250 MG PO BID Benztropine Mesylate (Benztropine Mesylate), 2 MG PO HS Budesonide/Formoterol Fumarate (Symbicort 160-4.5 Mcg/Act), 2 PUFFS INH BID Bupropion HCl (Bupropion HCl Sr), 150 MG PO BID Buspirone HCl (Buspirone HCl), 30 MG PO BID Clonazepam (Klonopin), 2 MG PO HS Divalproex Sodium (Divalproex Sodium ER), 1,500 MG PO BID@1200,2100 Enoxaparin (Lovenox), 30 MG SQ Q12H Ferrous Sulfate (Kp Ferrous Sulfate), 1 TAB PO BID Furosemide (Lasix), 40 MG PO QAM Levothyroxine Sodium (Levothyroxine Sodium), 175 MCG PO QAM Lisinopril (Lisinopril), 10 MG PO QAM Loratadine (Claritin), 10 MG PO QAM Loxapine Succinate (Loxapine), 100 MG PO HS Metformin Hcl (Glucophage), 850 MG PO BID Montelukast Sodium (Singulair), 10 MG PO HS Omeprazole (Prilosec), 20 MG PO QAM Polyethylene Glycol 3350 (Miralax), 17 GM PO BID Potassium Ext Rel (Klor-Con), 20 MEQ PO BID Pravastatin Sodium (Pravachol), 20 MG PO HS Ranitidine (Zantac), 150 MG PO BID Sennosides-Docusate Sodium (Senna Plus), 1 TAB PO BID Ziprasidone Hcl (Geodon), 160 MG PO QDD Scheduled PRN Albuterol Hfa (Ventolin Hfa), 2-4 PUFFS INH UD PRN for ASTHMA Oxycodone/Acetaminophen 5MG/325MG (Percocet 5MG/325MG), 1-2 TABLETS PO Q4H PRN for Pain Miscellaneous Medications Magnesium Oxide (Magnesium) Allergies Coded Allergies: No Known Allergies (Verified , 09/06/17) Physical Exam Vital Signs Date Time Temp Pulse Resp B/P (MAP) Pulse Ox O2 Delivery O2 Flow Rate FiO2 09/06/17 19:26 86 18 118/71 96 09/06/17 17:57 36.7 88 16 116/61 94 Room Air Physical Exam GENERAL: Awake, alert, well-appearing, NAD, HENT: Normocephalic, atraumatic, wearing glasses, missing bottom front teeth. EYES: Normal conjunctiva. Sclera non-icteric. PERRL. No anisocoria. NECK: Supple. No nuchal rigidity. FROM. RESPIRATORY: CTAB, no rhonchi, wheezing, crackles CARDIAC: RRR, no MRG ABDOMEN: Soft, NTND, BS+ MSK: No chest wall TTP, 3+ RLE edema, 4+ LLE edema, approximately 20cm vertical incision extending from distal left thigh to proximal fan, looks clean and intact, scant bleed noted at middle of incision site, no purulent drainage. NEURO: GCS 15, CN 2-12 intact, moves all 4s on command, NVI distally to SP/DP/ tib nerves. SKIN: No rash or jaundice noted. Medical Decision & Procedures Medications Administered Medications (Trade) Dose Ordered Sig/Daniel Route Start Time Stop Time Status Last Admin Dose Admin Enoxaparin Sodium (Lovenox Inj) 30 mg NOW ONCE SQ 09/06/17 18:30 09/06/17 18:31 DC 09/06/17 18:42 30 MG ED Course 1805: The patient was evaluated in room A11B. A complete history and physical exam was performed. 1853: I reevaluated the patient. Discussed results and discharge instructions. He verbalized understanding and agreement. The patient is ready for discharge. Medical Decision Nursing notes reviewed. Ancillary studies and prior records reviewed. The patient is a 57 year old white male with a past medical history of a TKA performed by Dr. Alejandra from [facility] 10 days ago who presents to the ED with a cc of intermittent bleeding beginning yesterday. The patient's presentation and history were concerning for wound dehiscence, septic arthritis, and coagulopathy. Patient was seen and evaluated the bedside. Patient did have some intermittent bleeding. Patient's been seen several times for this before and was told to present via his home health nurse. Patient does have a history of lymphedema. Patient has had unchanged swelling. The patient has been taking his Lovenox although he states that he did not take it this morning. I did tell the nurse that we could apply a nonadherent dressing and then gauze and then an Joe wrap of the left lower extremity. His Lovenox was ordered as he did not take this morning. I did discuss the case with the on-call orthopedist who is familiar with the patient as he did perform the procedure. Physician was in agreement with the plan of care and the patient does have follow-up with him in several days. Patient was deemed suitable for outpatient follow-up and treatment at this time. I do not believe that he has blood clots as the patient states that he has been compliant with his anticoagulation and he has had no change in his lower extremity swelling. Furthermore, the patient does not appear infected as he is stable vital signs and the incisional site does not appear infected. Patient was given strict follow-up, discharge, and return precautions. All questions were answered. Patient was deemed suitable for outpatient follow-up at this time. Patient agreed with the plan of care and was safely discharged home. Medication Reconcilliation Current Medication List: was personally reviewed by me Blood Pressure Screening Patient's blood pressure: Normal blood pressure Blood pressure disposition: Did not require urgent referral Consults Time Called: 1819 Consulting Physician: Dr. Alejandra - [facility] Returned Call: 1820 Discussed the patient's case. Dr. Alejandra recommended dressing the patient's incision site and then discharging him home. Impression Primary Impression: Postoperative bleeding from incision Scribe Attestation The scribe's documentation has been prepared under my direction and personally reviewed by me in its entirety. I confirm that the note above accurately reflects all work, treatment, procedures, and medical decision making performed by me. Departure Information Dispostion Home / Self-Care Referrals Yohannes Carrillo M.D. (PCP) Patient Instructions ED RICE, ED Wound Care, [facility] Additional Instructions Please return to the emergency department if you have worsening or recurrent symptoms not amenable to at-home treatment. Please call for a follow-up appointment with her primary care physician. Please take your medications as prescribed. If you have other concerns and/or complaints please feel free to also call your primary care physician's office or return the ED for further evaluation, management, and treatment. Take your medications as prescribed. Please follow-up with your orthopedist as currently scheduled. Please continue to rest ice compress and elevate your bilateral lower extremities to help with swelling. Please continue to use her Lovenox as prescribed. You have been examined and treated today on an emergency basis only. This is not a substitute for, or an effort to provide, complete comprehensive medical care. It is impossible to recognize and treat all injuries or illnesses in a single emergency department visit. It is therefore important that you follow up closely with [facility], your PCP, and/or your specialist(s). Call as soon as possible for an appointment. Thank you for your time and consideration. I look forward to speaking with you again soon. Please don't hesitate to call us if you have any questions.
[2017-09-06 19:26] VITALS: BP 118/71; PULSE 86; O2SAT 96
[2017-09-07] MEDS ORDERED: DPKSR500 PO (03:08)
[2017-09-07] MEDS ORDERED: ENOX30IN4 SQ (03:09)
[2017-09-07] MEDS ORDERED: FERR1TAB13 PO (03:11)
[2017-09-07] MEDS ORDERED: OXYC-57 PO (03:22)
== END 2017-09-06 19:24 | disposition home or self-care (01) ==
LOC: C.EDB 17:53 → C.EDA 19:24
DX: L76.22 Postprocedural hemorrhage of skin and subcutaneous tissue following other procedure (principal); R60.0 Localized edema; Z79.01 Long term (current) use of anticoagulants; K08.409 Partial loss of teeth, unspecified cause, unspecified class; J45.909 Unspecified asthma, uncomplicated; F31.9 Bipolar disorder, unspecified; E03.9 Hypothyroidism, unspecified; F20.9 Schizophrenia, unspecified; E11.649 Type 2 diabetes mellitus with hypoglycemia without coma; Z79.84 Long term (current) use of oral hypoglycemic drugs; K21.9 Gastro-esophageal reflux disease without esophagitis; E78.5 Hyperlipidemia, unspecified; I10 Essential (primary) hypertension

== ENCOUNTER 2017-09-07 01:27 | Emergency (ER) | payer OTHER ==
[~2017-09-07] VITALS: Ht 180.3 cm; Wt 118.8 kg
[2017-09-07 01:30] VITALS: TEMP 36.6; Ht 180.3 cm; Wt 118.8 kg
--- NOTE | 2017-09-07 02:00 | EMERGENCY ROOM VISIT NOTE ---
History Report prepared by Beny: Leny Webster Under the Supervision of: Dr. Sarah Ross D.O. First contact with patient: 01:32 Stated Complaint: KNEE DRAINAGE S/P KNEE SURGERY History of Present Illness The patient is a 57 year old male who presents to the Emergency Room with complaints of an episode of drainage from his wound site on his left knee beginning a couple hours ago. The patient had a complete knee replacement by Dr. [facility] on August 27. He denies any pain to the site. He reports the wound site bleed more than normal today which was worrisome to him. The patient reports he was able to walk from his apartment to [employer] with his walker for dinner a couple hours ago. The patient has home health coming to his apartment for rehabilitation. The patient reports he was at [facility] for rehabilitation and he left because he didn't like the staff. Source of History: patient Onset: a couple hours ago Position: knee (left) Quality: other (drainage) Timing: other (episode) Review of Systems See HPI for pertinent positives & negatives. A total of 10 systems reviewed and were otherwise negative. 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 (18) Lymphedema of both lower extremities (19) Mitral regurgitation (20) PNA (pneumonia) (21) Pneumonia (22) Pneumonia (23) Rib pain on left side (24) Schizoaffective disorder, bipolar type (25) Schizophrenia (26) Sepsis (27) Sepsis (28) Sleep apnea (29) SOB (shortness of breath) (30) Soft tissue disorder (31) Tricuspid regurgitation (32) Unable to void (33) UTI (urinary tract infection) (34) Weakness Family History Diabetes mellitus Gallbladder disease Hypertension Social History Smoking Status: Never Smoker Alcohol Use: none Drug Use: none Marital Status: single Housing Status: lives alone Occupation Status: disabled Current/Historical Medications Scheduled Benztropine Mesylate (Benztropine Mesylate), 2 MG PO QAM Budesonide/Formoterol Fumarate (Symbicort 160-4.5 Mcg/Act), 2 PUFFS INH BID Bupropion HCl (Bupropion HCl Sr), 150 MG PO BID Buspirone HCl (Buspirone HCl), 30 MG PO BID Clonazepam (Klonopin), 2 MG PO HS Divalproex Sodium (Divalproex Sodium ER), 1,500 MG PO BID Enoxaparin (Lovenox), 30 MG SQ Q12H Ferrous Sulfate (Kp Ferrous Sulfate), 325 MG PO BID Furosemide (Lasix), 40 MG PO QAM Levothyroxine Sodium (Levothyroxine Sodium), 175 MCG PO QAM Lisinopril (Lisinopril), 10 MG PO QAM Loratadine (Claritin), 10 MG PO QAM Loxapine Succinate (Loxapine), 100 MG PO HS Montelukast Sodium (Singulair), 10 MG PO QPM Omeprazole (Prilosec), 20 MG PO DAILY Polyethylene Glycol 3350 (Miralax), 17 GM PO BID Potassium Ext Rel (Klor-Con), 20 MEQ PO BID Pravastatin Sodium (Pravachol), 20 MG PO DAILY Ranitidine (Zantac), 150 MG PO BID Sennosides-Docusate Sodium (Senna Plus), 1 TAB PO BID Ziprasidone Hcl (Geodon), 160 MG PO QDD Scheduled PRN Albuterol Hfa (Ventolin Hfa), 2-4 PUFFS INH UD PRN for ASTHMA Metformin Hcl (Glucophage), 850 MG PO BID PRN for ELEVATED BLOOD SUGAR Oxycodone/Acetaminophen 5MG/325MG (Percocet 5MG/325MG), 1-2 TABLETS PO Q4H PRN for Pain Allergies Coded Allergies: No Known Allergies (Verified , 09/06/17) Physical Exam Vital Signs Date Time Temp Pulse Resp B/P (MAP) Pulse Ox O2 Delivery O2 Flow Rate FiO2 09/07/17 06:00 92 20 103/59 92 Room Air 09/07/17 04:00 93 20 111/72 95 Room Air 09/07/17 03:12 91 20 128/75 91 Room Air 09/07/17 01:30 36.6 90 20 100/67 98 Room Air Physical Exam HEENT: Head - normocephalic and atraumatic Pupils are equal, round, and reactive to light. Extraocular eye muscles are intact, and sclera are anicteric. Nose - moist nasal mucosa without discharge. Mouth - moist buccal mucosa. Oropharynx is nonerythematous and there is no tonsillar exudate or edema noted. Neck: Supple; no JVD, nuchal rigidity, cervical lymphadenopathy. Heart: Regular rate and rhythm. There is a normal S1 and S2 with no murmurs, clicks, or gallops appreciated. Lungs: Clear to auscultation bilaterally with no wheezes, rales, or rhonchi. Abdomen: Soft, completely nontender, nondistended, with good bowel sounds. There are no palpable pulsatile masses or hepatosplenomegaly. There is no guarding, rigidity, or rebound noted. Extremities:Significant left leg edema from groin to foot, matty in place, small amount of serosanguineous drainage, no sign of infection, compression stocking on left leg is cutting into calf. Right lower extremity lymphedema. Skin: warm and dry with good turgor and no rashes. Medical Decision & Procedures Laboratory Results 09/07/17 02:26 Red Blood Count 3.26, Mean Corpuscular Volume 90.5, Mean Corpuscular Hemoglobin 29.8, Mean Corpuscular Hemoglobin Concent 32.9, Mean Platelet Volume 8.1, Neutrophils (%) (Auto) 60.7, Lymphocytes (%) (Auto) 19.6, Monocytes (%) (Auto) 13.8, Eosinophils (%) (Auto) 0.7, Basophils (%) (Auto) 0.2, Neutrophils # (Auto ) 7.80, Lymphocytes # (Auto) 2.52, Monocytes # (Auto) 1.77, Eosinophils # (Auto ) 0.09, Basophils # (Auto) 0.02 09/07/17 02:26 Test 09/07/17 02:26 White Blood Count 12.84 K/uL (4.8-10.8) Red Blood Count 3.26 M/uL (4.7-6.1) Hemoglobin 9.7 g/dL (14.0-18.0) Hematocrit 29.5 % (42-52) Mean Corpuscular Volume 90.5 fL (80-100) Mean Corpuscular Hemoglobin 29.8 pg (25-34) Mean Corpuscular Hemoglobin Concent 32.9 g/dl (32-36) Platelet Count 400 K/uL (130-400) Mean Platelet Volume 8.1 fL (7.4-10.4) Neutrophils (%) (Auto) 60.7 % Lymphocytes (%) (Auto) 19.6 % Monocytes (%) (Auto) 13.8 % Eosinophils (%) (Auto) 0.7 % Basophils (%) (Auto) 0.2 % Neutrophils # (Auto) 7.80 K/uL (1.4-6.5) Lymphocytes # (Auto) 2.52 K/uL (1.2-3.4) Monocytes # (Auto) 1.77 K/uL (0.11-0.59) Eosinophils # (Auto) 0.09 K/uL (0-0.5) Basophils # (Auto) 0.02 K/uL (0-0.2) RDW Standard Deviation 49.6 fL (36.4-46.3) RDW Coefficient of Variation 15.8 % (11.5-14.5) Immature Granulocyte % (Auto) 5.0 % Immature Granulocyte # (Auto) 0.64 K/uL (0.00-0.02) Nucleated RBC Absolute Count (auto) 0.06 K/uL (0-0) Nucleated Red Blood Cells % 0.5 % Anion Gap 4.0 mmol/L (3-11) Est Creatinine Clear Calc Drug Dose 89.1 ml/min Estimated GFR () 78.6 Estimated GFR (Non- 67.8 BUN/Creatinine Ratio 16.3 (10-20) Calcium Level 7.8 mg/dl (8.5-10.1) Laboratory results per my review. ED Course 0148: Past medical records reviewed. The patient was evaluated in room A2. A complete history and physical exam was performed. Laboratory studies were drawn as above. 0205: Long discussion with Senior Officer. They will talk to the patient about his rehabilitation options. 0209: In reviewing records, the patient has a left lower extremity ultrasound on September 04 to r/o DVT. 0423: The patient is agreeable to [facility] for rehabilitation. 0530: The patient will be evaluated for [facility] rehabilitation later this morning. 0730: The patient was singed out to Dr. Reich at the change of shifts. Medical Decision The patient is a 57 year old male who presents to the Emergency Room with complaints of an episode of drainage from his wound site on his left knee beginning a couple hours ago. Differential diagnosis includes wound infection, worsening lymph edema, DVT. Lab results show: white count 12.8, hemoglobin stable at 9.7, sodium slightly lower at 130, BUN 19 creatinine 1.1, glucose 77. This is a 57-year-old male patient who underwent a total knee replacement on August 27. Over the past 3 days, the patient has had 4 visits to the emergency department with drainage from the wound of the left knee. When the patient was originally discharged from the hospital, he went to [facility] but decided that he did not like it there and signed out. The patient now has significant edema to the left lower extremity with some drainage from the wound. There are no signs of infection. I think the patient would benefit from a an inpatient rehab stay. He will be evaluated for rehab at [facility]. The case will be signed out to Dr. Reich at change of shift awaiting final disposition. Medication Reconcilliation Current Medication List: was personally reviewed by me Blood Pressure Screening Patient's blood pressure: Normal blood pressure Impression Primary Impression: Postoperative bleeding from incision Scribe Attestation The scribe's documentation has been prepared under my direction and personally reviewed by me in its entirety. I confirm that the note above accurately reflects all work, treatment, procedures, and medical decision making performed by me. Departure Information Dispostion Still a Patient Referrals Pro,Yohannes Beyer M.D. (PCP)
[2017-09-07 02:36] LABS: BASO % 0.2 %; BASO ABS # 0.02 K/uL (0-0.2); EOS % 0.7 %; EOS ABS # 0.09 K/uL (0-0.5); HEMATOCRIT 29.5 % (42-52); HEMOGLOBIN 9.7 g/dL (14.0-18.0); IG# 0.64 K/uL (0.00-0.02); LYMPH % 19.6 %; LYMPH ABS # 2.52 K/uL (1.2-3.4); MEAN CELL VOLUME 90.5 fL (80-100); MEAN CORPUSCULAR HEMOGLOBIN 29.8 pg (25-34); MEAN CORPUSCULAR HGB CONC 32.9 g/dl (32-36); MEAN PLATELET VOLUME 8.1 fL (7.4-10.4); MONO % 13.8 %; MONO ABS # 1.77 K/uL (0.11-0.59); NEUT % 60.7 %; NUCLEATED RED BLOOD CELL ABS 0.06 K/uL (0-0); PLATELET COUNT 400 K/uL (130-400); RED CELL DISTRIBUTION WIDTH CV 15.8 % (11.5-14.5); RED CELL DISTRIBUTION WIDTH SD 49.6 fL (36.4-46.3); WHITE BLOOD COUNT 12.84 K/uL (4.8-10.8)
[2017-09-07 02:53] LABS: CALCIUM 7.8 mg/dl (8.5-10.1); CREATININE 1.17 mg/dl (0.60-1.40); POTASSIUM 4.4 mmol/L (3.5-5.1)
[2017-09-07] MEDS ORDERED: DPKSR500 PO (03:08)
[2017-09-07] MEDS ORDERED: ENOX30IN4 SQ (03:09)
[2017-09-07] MEDS ORDERED: FERR1TAB13 PO (03:11)
[2017-09-07] MEDS ORDERED: OXYC-57 PO (03:22)
[2017-09-07] MEDS ORDERED: OXYCODONE/ACETAMINOPHEN 5-325 TAB PO PRN (11:15)
[2017-09-07] MEDS ORDERED: METFORMIN HCL 850 MG TAB PO PRN (11:15)
[2017-09-07] MEDS ORDERED: ALBUTEROL HFA 8 GM INHALER INH PRN (11:15)
[2017-09-07] MEDS ORDERED: ENOXAPARIN 30 MG/0.3 ML SYR SQ SCH (11:15)
--- NOTE | 2017-09-07 12:13 | EMERGENCY ROOM VISIT NOTE ---
ED Visit Note This is a 57-year-old male who was signed out to me in the morning. Dr. Ross signed out the patient attempted to see if the patient will be placed at a nursing facility temporarily for some of his issues. Case management attempted to place the patient at [facility]. They declined. The patient does have physical therapy coming to his house today. They are going to also set up [facility] for [facility]. The patient is agreeable to going back home. He was discharged.
[2017-09-07 13:00] VITALS: BP 182/124; PULSE 88; O2SAT 96
[2017-09-07] MEDS ORDERED: ZIPRASIDONE 80 MG CAP PO SCH (18:00)
[2017-09-07] MEDS ORDERED: RANITIDINE HCL 150 MG TAB PO SCH (21:00)
[2017-09-07] MEDS ORDERED: BuPROPion SR 150 MG TABCR PO SCH (21:00)
[2017-09-07] MEDS ORDERED: CLONAZEPAM 1 MG TAB PO SCH (21:00)
[2017-09-07] MEDS ORDERED: DIVALPROEX 500 MG EXTENDED RELEASE TAB PO SCH (21:00)
[2017-09-07] MEDS ORDERED: DOCUSATE SODIUM/SENNA 50/8.6MG TAB PO SCH (21:00)
[2017-09-07] MEDS ORDERED: BusPIRone 15 MG TAB PO SCH (21:00)
[2017-09-07] MEDS ORDERED: MONTELUKAST SOD 10 MG TAB PO SCH (21:00)
[2017-09-07] MEDS ORDERED: BUDESONIDE/FORMOTEROL FUMARATE 160/4.5 60 PUFFS/INHALER INH SCH (21:00)
[2017-09-07] MEDS ORDERED: POTASSIUM CHLORIDE 20 MEQ TABCR PO SCH (21:00)
[2017-09-08] MEDS ORDERED: BENZTROPINE MESYLATE 1 MG TAB PO SCH (09:00)
[2017-09-08] MEDS ORDERED: LEVOTHYROXINE 175 MCG TAB PO SCH (09:00)
[2017-09-08] MEDS ORDERED: PRAVASTATIN SOD 20 MG TAB PO SCH (09:00)
[2017-09-08] MEDS ORDERED: LISINOPRIL 10 MG TAB PO SCH (09:00)
[2017-09-08] MEDS ORDERED: LORATADINE 10 MG TAB PO SCH (09:00)
[2017-09-08] MEDS ORDERED: FUROSEMIDE 40 MG TAB PO SCH (09:00)
[2017-09-08] MEDS ORDERED: TRAM-10 PO (14:50)
== END 2017-09-07 13:19 | disposition home health service (06) ==
LOC: EDBD 01:27 → C.EDA 01:29
DX: M96.830 Postprocedural hemorrhage of a musculoskeletal structure following a musculoskeletal system procedure (principal); Z96.659 Presence of unspecified artificial knee joint; J45.909 Unspecified asthma, uncomplicated; F31.9 Bipolar disorder, unspecified; N18.9 Chronic kidney disease, unspecified; I12.9 Hypertensive chronic kidney disease with stage 1 through stage 4 chronic kidney disease, or unspecified chronic kidney disease; E11.9 Type 2 diabetes mellitus without complications; Z87.01 Personal history of pneumonia (recurrent); K21.9 Gastro-esophageal reflux disease without esophagitis; E78.5 Hyperlipidemia, unspecified; E03.9 Hypothyroidism, unspecified; I34.0 Nonrheumatic mitral (valve) insufficiency; F20.9 Schizophrenia, unspecified; Z87.440 Personal history of urinary (tract) infections; Z83.3 Family history of diabetes mellitus; Z82.49 Family history of ischemic heart disease and other diseases of the circulatory system; Z83.79 Family history of other diseases of the digestive system; Z79.899 Other long term (current) drug therapy; Z79.01 Long term (current) use of anticoagulants

== ENCOUNTER 2017-09-08 14:05 | Emergency (ER) | payer OTHER ==
[~2017-09-08] VITALS: Ht 182.9 cm; Wt 110.2 kg
[~2017-09-08 14:05] MED LIST changes: +ENOX30IN4 SQ
[2017-09-08 14:12] VITALS: TEMP 36.8; Ht 182.9 cm; Wt 110.2 kg
[2017-09-08] MEDS ORDERED: SODIUM CHLORIDE 0.9% 1000ML 1,000 ML IV STA (14:22)
--- NOTE | 2017-09-08 14:26 | EMERGENCY ROOM VISIT NOTE ---
History Report prepared by Beny: Grant Gage Under the Supervision of: Dr. Gomez Turner M.D. First contact with patient: 14:06 Stated Complaint: FALL/ L KNEE PAIN History of Present Illness The patient is a 57 year old male who presents to the Emergency Room with complaints of intermittent left knee bleeding that began August 27. The patient states he had left knee arthroplasty performed by Dr. Alejandra on August 27. He reports that he needed a blood transfusion at the time of the surgery. The patient states that since the surgery, he has been experiencing intermittent left knee pain. He reports that he has also been intermittently bleeding from the surgical site since. The patient states he was recently released from [facility] a couple of days ago. He reports that this morning he fell on the floor, which caused his left knee to bleed again. Per EMS, the patient had blood all over his clothes and on the floor. The patient states that he was on the floor for an hour and a half. He denies any abdominal pain. Source of History: patient Onset: August 27 Position: knee (left) Quality: other (bleeding) Timing: intermittent Associated Symptoms: No abdominal pain Note: Associated symptoms: intermittent left knee pain Review of Systems See HPI for pertinent positives & negatives. A total of 10 systems reviewed and were otherwise negative. 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 (18) Lymphedema of both lower extremities (19) Mitral regurgitation (20) PNA (pneumonia) (21) Pneumonia (22) Pneumonia (23) Rib pain on left side (24) Schizoaffective disorder, bipolar type (25) Schizophrenia (26) Sepsis (27) Sepsis (28) Sleep apnea (29) SOB (shortness of breath) (30) Soft tissue disorder (31) Tricuspid regurgitation (32) Unable to void (33) UTI (urinary tract infection) (34) Weakness Family History Diabetes mellitus Gallbladder disease Hypertension Social History Smoking Status: Never Smoker Alcohol Use: none Drug Use: none Marital Status: single Housing Status: lives alone Occupation Status: disabled Current/Historical Medications Scheduled Benztropine Mesylate (Benztropine Mesylate), 2 MG PO QAM Budesonide/Formoterol Fumarate (Symbicort 160-4.5 Mcg/Act), 2 PUFFS INH BID Bupropion HCl (Bupropion HCl Sr), 150 MG PO BID Buspirone HCl (Buspirone HCl), 30 MG PO BID Clonazepam (Klonopin), 2 MG PO HS Divalproex Sodium (Divalproex Sodium ER), 1,500 MG PO BID Enoxaparin (Lovenox), 30 MG SQ Q12H Ferrous Sulfate (Kp Ferrous Sulfate), 325 MG PO BID Furosemide (Lasix), 40 MG PO QAM Levothyroxine Sodium (Levothyroxine Sodium), 175 MCG PO QAM Lisinopril (Lisinopril), 10 MG PO QAM Loratadine (Claritin), 10 MG PO QAM Loxapine Succinate (Loxapine), 100 MG PO HS Montelukast Sodium (Singulair), 10 MG PO QPM Omeprazole (Prilosec), 20 MG PO DAILY Polyethylene Glycol 3350 (Miralax), 17 GM PO BID Potassium Ext Rel (Klor-Con), 20 MEQ PO BID Pravastatin Sodium (Pravachol), 20 MG PO DAILY Ranitidine (Zantac), 150 MG PO BID Sennosides-Docusate Sodium (Senna Plus), 1 TAB PO BID Ziprasidone Hcl (Geodon), 160 MG PO QDD Scheduled PRN Albuterol Hfa (Ventolin Hfa), 2-4 PUFFS INH UD PRN for ASTHMA Metformin Hcl (Glucophage), 850 MG PO BID PRN for ELEVATED BLOOD SUGAR Tramadol (Ultram), 50 MG PO Q4H PRN for Pain Allergies Coded Allergies: No Known Allergies (Verified , 09/08/17) Physical Exam Vital Signs Date Time Temp Pulse Resp B/P (MAP) Pulse Ox O2 Delivery O2 Flow Rate FiO2 09/08/17 17:36 92 138/92 09/08/17 17:01 151/87 09/08/17 17:00 110 20 09/08/17 16:45 105 22 09/08/17 16:31 134/100 09/08/17 16:30 98 20 09/08/17 16:15 92 18 95 09/08/17 16:01 135/85 09/08/17 16:00 89 14 96 09/08/17 15:51 89 19 131/79 Room Air 09/08/17 14:32 100 Room Air 09/08/17 14:30 98 Room Air 09/08/17 14:19 96 09/08/17 14:12 36.8 98 15 127/86 96 Room Air Physical Exam GENERAL: Awake, alert, well-appearing, in no acute distress HENT: Normocephalic, atraumatic. Oropharynx unremarkable. EYES: Normal conjunctiva. Sclera non-icteric. NECK: Supple. No nuchal rigidity. FROM. No JVD. RESPIRATORY: Clear to auscultation. CARDIAC: Regular rate, normal rhythm. Extremities warm and well perfused. Pulses equal. ABDOMEN: Soft, non-distended. No tenderness to palpation. No rebound or guarding. No masses. RECTAL: Deferred. MUSCULOSKELETAL: Chest examination reveals no tenderness. The back is symmetrical on inspection without obvious abnormality. There is no CVA tenderness to palpation. No joint edema. LOWER EXTREMITIES: Calves are equal size bilaterally and non-tender. 2+ peripheral edema that is chronic to his legs. Large surgical to the patient's left knee that appears to be healing well. Streaks of blood from the surgical site. Feet are caked in blood. No discoloration. NEURO: Normal sensorium. No sensory or motor deficits noted. SKIN: No rash or jaundice noted. Medical Decision & Procedures ER Provider Diagnostic Interpretation: X-ray results as stated below per interpretation by me and the radiologist: LEFT KNEE 2 VIEWS HISTORY: Pt c/o left knee pain COMPARISON: None. FINDINGS: Recent postoperative changes consistent with placement of a constrained longstem left total knee arthroplasty. The hardware appears intact. No acute fracture or dislocation within the left knee. Skin matty are in place. Small joint effusion. Anterior soft tissue swelling. IMPRESSION: 1. Recent left total knee arthroplasty. 2. No fracture or dislocation. 3. Anterior soft tissue swelling and a small joint effusion. Electronically signed by: Errol Naik M.D. 09/08/2017 2:43 PM Dictated Date/Time: 09/08/2017 2:41 PM Laboratory Results 09/08/17 14:19 Red Blood Count 3.54, Mean Corpuscular Volume 91.5, Mean Corpuscular Hemoglobin 29.9, Mean Corpuscular Hemoglobin Concent 32.7, Mean Platelet Volume 8.1, Neutrophils (%) (Auto) 72.2, Lymphocytes (%) (Auto) 14.8, Monocytes (%) (Auto) 9.3, Eosinophils (%) (Auto) 0.6, Basophils (%) (Auto) 0.1, Neutrophils # (Auto) 9.74, Lymphocytes # (Auto) 2.00, Monocytes # (Auto) 1.26, Eosinophils # (Auto) 0.08, Basophils # (Auto) 0.01 09/08/17 14:19 Test 09/08/17 14:19 09/08/17 14:45 09/08/17 15:00 09/08/17 16:19 White Blood Count 13.49 K/uL (4.8-10.8) Red Blood Count 3.54 M/uL (4.7-6.1) Hemoglobin 10.6 g/dL (14.0-18.0) Hematocrit 32.4 % (42-52) Mean Corpuscular Volume 91.5 fL (80-100) Mean Corpuscular Hemoglobin 29.9 pg (25-34) Mean Corpuscular Hemoglobin Concent 32.7 g/dl (32-36) Platelet Count 445 K/uL (130-400) Mean Platelet Volume 8.1 fL (7.4-10.4) Neutrophils (%) (Auto) 72.2 % Lymphocytes (%) (Auto) 14.8 % Monocytes (%) (Auto) 9.3 % Eosinophils (%) (Auto) 0.6 % Basophils (%) (Auto) 0.1 % Neutrophils # (Auto) 9.74 K/uL (1.4-6.5) Lymphocytes # (Auto) 2.00 K/uL (1.2-3.4) Monocytes # (Auto) 1.26 K/uL (0.11-0.59) Eosinophils # (Auto) 0.08 K/uL (0-0.5) Basophils # (Auto) 0.01 K/uL (0-0.2) RDW Standard Deviation 52.4 fL (36.4-46.3) RDW Coefficient of Variation 16.5 % (11.5-14.5) Immature Granulocyte % (Auto) 3.0 % Immature Granulocyte # (Auto) 0.40 K/uL (0.00-0.02) Prothrombin Time 10.0 SECONDS (9.0-12.0) Prothromb Time International Ratio 1.0 (0.9-1.1) Activated Partial Thromboplast Time 26.0 SECONDS (21.0-31.0) Partial Thromboplastin Ratio 1.0 Est Creatinine Clear Calc Drug Dose 103.0 ml/min Estimated GFR () 96.2 Estimated GFR (Non- 83.0 BUN/Creatinine Ratio 16.4 (10-20) Calcium Level 9.3 mg/dl (8.5-10.1) Total Bilirubin 0.4 mg/dl (0.2-1) Direct Bilirubin 0.1 mg/dl (0-0.2) Aspartate Amino Transf (AST/SGOT) 35 U/L (15-37) Alanine Aminotransferase (ALT/SGPT) 29 U/L (12-78) Alkaline Phosphatase 136 U/L (45-117) Total Creatine Kinase 240 U/L (39-308) Total Protein 6.0 gm/dl (6.4-8.2) Albumin 2.4 gm/dl (3.4-5.0) Lipase 272 U/L (73-393) Bedside Hemoglobin 10.9 g/dl (14.0-18.0) Bedside Hematocrit 32 % (42-52) Bedside Sodium 134 mEq/L (135-144) Bedside Potassium 4.1 mEq/L (3.3-5.0) Bedside Chloride 95 mEq/L (101-112) Bedside Total CO2 27 mEq/l (24-31) Anion Gap 17.0 mmol/L (16-25) Bedside Blood Urea Nitrogen 17 mg/dl (7-18) Bedside Creatinine 1.1 mg/dl (0.6-1.3) Bedside Glucose (other) 113 mg/dl (70-99) Bedside Ionized Calcium (Raj) 1.28 mmol/l (1.12-1.32) Urine Color YELLOW Urine Appearance CLEAR (CLEAR) Urine pH 8.5 (4.5-7.5) Urine Specific [place] 1.013 (1.000-1.030) Urine Protein NEG (NEG) Urine Glucose (UA) NEG (NEG) Urine Ketones NEG (NEG) Urine Occult Blood NEG (NEG) Urine Nitrite NEG (NEG) Urine Bilirubin NEG (NEG) Urine Urobilinogen NEG (NEG) Urine Leukocyte Esterase NEG (NEG) Bedside Glucose 117 mg/dl (70-99) Labs reviewed by ED physician. Medications Administered Medications (Trade) Dose Ordered Sig/Daniel Route Start Time Stop Time Status Last Admin Dose Admin Sodium Chloride 1,000 ml @ 999 mls/hr Q1H1M STAT IV 09/08/17 14:22 09/08/17 15:22 DC 09/08/17 14:22 999 MLS/HR Dextrose (Dextrose 50% 50ML Syringe) 50 ml NOW STAT IV 09/08/17 16:03 09/08/17 16:05 DC 09/08/17 16:05 50 ML ECG Per My Interpretation Indication: weakness Rate (beats per minute): 93 Rhythm: normal sinus Findings: PVC, RBBB, other (No ST elevation or depression) Comparison ECG Date: 05/31/17 Change: no significant change ED Course 1408: Past medical records reviewed. The patient was evaluated in room B06. A complete history and physical examination was performed. 1422: Ordered Sodium Chloride 1000 ml @ 999 mls/hr IV. 1605: Ordered Dextrose 50 ml IV. 1628: I discussed the patients case with Dr. Le, [facility] Hospitalist. He understands the patients condition and agrees to evaluate the patient. 1633: Dr. Le informed me that he will check on the patient again in an hour since he is currently hypoglycemic. 1756: Nursing informed me that the patient's blood sugar is 127 and his vital signs are stable after eating. They reported that Dr. Le believes the patient is able to be discharged. 1815: Upon reexamination the patient is resting comfortably. I discussed results and treatment plan with the patient. He verbalizes agreement and understanding. The patient is ready for discharge. Medical Decision Prior records/ancillary studies reviewed. Triage Nursing notes reviewed. The patient's history was concerning for traumatic injury Differential diagnosis: Etiologies such as fracture, dislocation, intra-abdominal, pneumothorax, intrathoracic , intracranial, neurologic, as well as other traumatic pathologies were entertained. This is a 57-year-old male well-known to the emergency department who presents on the fifth day in a row after a fall at home. It has been recommended strongly to the patient that he go to rehabilitation however he is signed out AGAINST MEDICAL ADVICE from there. He again fell at home today. Upon arrival to the emergency department the patient has no complaints however he did become hypoglycemic in the emergency department. He was therefore given 50% dextrose and was fed. Due to the multiple visits to the emergency department the patient was discussed with case management who felt that admission was in the patient's best interest. I also discussed the case with the hospitalist who was kind enough to come and see the patient however the patient is refusing admission. Based on this I will discharge the patient home for follow-up with outpatient social work administrator. The patient has demonstrated no significant defect in the decision-making capacity to make choices. The encounter had a good level of communication with language the patient can easily understand. I feel trust was present and conveyed that our action/intentions were the best interest of the patient. The patient was given all relevant information and reiterated the explained risks and benefits. The patient explained the reasoning for refusing treatment clearly. The patient possesses and expresses a set of values and goals, the ability to communicate and understand, and an ability to reason and deliberate. Despite acting emphatically, attentively and with the utmost patient's the patient declined further treatment. I offered options, negotiated, and explored every reasonable choice. I must respect the patient's autonomy and that they feel that their choices are best for them despite the associated risks of leaving without completing the evaluation. The patient was informed about the findings as listed above. All questions were answered and he was pleased with the treatment. Return instructions were outlined and the patient was discharged in stable condition. Medication Reconcilliation Current Medication List: was personally reviewed by me Blood Pressure Screening Patient's blood pressure: Normal blood pressure Consults Time Called: 1628 Consulting Physician: Dr. Le [facility] Hospitalist Returned Call: 1628 I discussed the patients case with Dr. Le [facility] Hospitalist. He understands the patients condition and agrees to evaluate the patient. Additional Consults: Time Called: 1633 Consulted Physician: Dr. Le [facility] Hospitalist Returned Call: 1633 Additional Comments: Dr. Le informed me that he will check on the patient again in an hour since he is currently hypoglycemic. Impression Primary Impression: Fall Additional Impression: Hypoglycemia Scribe Attestation The scribe's documentation has been prepared under my direction and personally reviewed by me in its entirety. I confirm that the note above accurately reflects all work, treatment, procedures, and medical decision making performed by me. Departure Information Dispostion Home / Self-Care Referrals Yohannes Carrillo M.D. (PCP) Forms HOME CARE DOCUMENTATION FORM, IMPORTANT VISIT INFORMATION, WORK / SCHOOL INSTRUCTIONS Patient Instructions ED Diabetes Hypoglycemia Insulin React, [facility] Additional Instructions Follow up with in home care You have been examined and treated today on an emergency basis only. This is not a substitute for, or an effort to provide, complete comprehensive medical care. It is impossible to recognize and treat all injuries or illnesses in a single emergency department visit. It is therefore important that you follow up closely with Dr Carrillo. Call as soon as possible for an appointment. Thank you for your time and consideration. I look forward to speaking with you again soon. Please don't hesitate to call us if you have any questions. Problem Qualifiers Primary Impression: Fall Encounter type: initial encounter Qualified Codes: W19.XXXA - Unspecified fall, initial encounter
[2017-09-08 14:32] VITALS: O2SAT 100
[2017-09-08 14:37] LABS: BASO % 0.1 %; BASO ABS # 0.01 K/uL (0-0.2); EOS % 0.6 %; EOS ABS # 0.08 K/uL (0-0.5); HEMATOCRIT 32.4 % (42-52); HEMOGLOBIN 10.6 g/dL (14.0-18.0); LYMPH % 14.8 %; MEAN CELL VOLUME 91.5 fL (80-100); MEAN CORPUSCULAR HEMOGLOBIN 29.9 pg (25-34); MEAN CORPUSCULAR HGB CONC 32.7 g/dl (32-36); MEAN PLATELET VOLUME 8.1 fL (7.4-10.4); MONO % 9.3 %; MONO ABS # 1.26 K/uL (0.11-0.59); NEUT % 72.2 %; NEUT ABS # 9.74 K/uL (1.4-6.5); PLATELET COUNT 445 K/uL (130-400); RED CELL DISTRIBUTION WIDTH CV 16.5 % (11.5-14.5); RED CELL DISTRIBUTION WIDTH SD 52.4 fL (36.4-46.3); WHITE BLOOD COUNT 13.49 K/uL (4.8-10.8)
--- NOTE | 2017-09-08 14:44 | DIAGNOSTIC IMAGING REPORT ---
LEFT KNEE 2 VIEWS HISTORY: Pt c/o left knee pain COMPARISON: None. FINDINGS: Recent postoperative changes consistent with placement of a constrained longstem left total knee arthroplasty. The hardware appears intact. No acute fracture or dislocation within the left knee. Skin matty are in place. Small joint effusion. Anterior soft tissue swelling. IMPRESSION: 1. Recent left total knee arthroplasty. 2. No fracture or dislocation. 3. Anterior soft tissue swelling and a small joint effusion. Electronically signed by: Errol Naik M.D. 09/08/2017 2:43 PM Dictated Date/Time: 09/08/2017 2:41 PM
[2017-09-08] MEDS ORDERED: TRAM-10 PO (14:50)
[2017-09-08 14:59] LABS: ISTAT CREATININE 1.1 mg/dl (0.6-1.3); ISTAT IONIZED CALCIUM 1.28 mmol/l (1.12-1.32); ISTAT POTASSIUM 4.1 mEq/L (3.3-5.0)
[2017-09-08 15:16] LABS: ALBUMIN 2.4 gm/dl (3.4-5.0); CREATININE 0.99 mg/dl (0.60-1.40); POTASSIUM 4.2 mmol/L (3.5-5.1)
[2017-09-08 15:17] LABS: CALCIUM 9.3 mg/dl (8.5-10.1)
[2017-09-08] MEDS ORDERED: DEXTROSE 50% 50 ML SYR IV STA (16:03)
[2017-09-08] MEDS ORDERED: DEXTROSE 50% 50 ML SYR ONE (16:05)
[2017-09-08 18:48] VITALS: BP 131/88; PULSE 92; O2SAT 94
== END 2017-09-08 18:48 | disposition home or self-care (01) ==
LOC: EDBD 14:05 → C.EDB 14:06
DX: E16.2 Hypoglycemia, unspecified (principal); W19.XXXA Unspecified fall, initial encounter; J45.909 Unspecified asthma, uncomplicated; I10 Essential (primary) hypertension; F31.9 Bipolar disorder, unspecified; N18.9 Chronic kidney disease, unspecified; E11.9 Type 2 diabetes mellitus without complications; K21.9 Gastro-esophageal reflux disease without esophagitis; E78.5 Hyperlipidemia, unspecified; E03.9 Hypothyroidism, unspecified; E87.1 Hypo-osmolality and hyponatremia; R09.02 Hypoxemia; M17.12 Unilateral primary osteoarthritis, left knee

== ENCOUNTER 2017-12-14 16:07 | Emergency (ER) | payer OTHER ==
[~2017-12-14] VITALS: Ht 182.9 cm; Wt 103.1 kg
[~2017-12-14 16:07] MED LIST changes: -ASCO250C3 PO; -BSP15 PO; +BUSP30TA2 OG; +CLON1TAB10 PO; -CLON1TAB3 PO; +DPKSR/500 PO; -LVNIS30 SQ; -MAGN1TAB41; -OXYC-57 PO; +TRAM-10 PO
[2017-12-14 16:13] VITALS: TEMP 36.8; Ht 182.9 cm; Wt 103.1 kg
--- NOTE | 2017-12-14 16:51 | EMERGENCY ROOM VISIT NOTE ---
ED Visit Note First contact with patient: 16:10 The patient was seen and examined with Dr. Cruz OTTO. I agree with the history, physical and findings. Please see the note for dispositions and details
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
--- NOTE | 2017-12-14 17:16 | DIAGNOSTIC IMAGING REPORT ---
L HIP UNILATERAL 2 VIEWS CLINICAL HISTORY: 57 years-old Male presenting with fall. TECHNIQUE: Frontal and frog-leg lateral views of the left hip were obtained. COMPARISON: 02/18/2018. FINDINGS: Left hip joint congruent. No joint space loss. Visualized portion of the bony pelvis intact. Left femoral neck intact. No acute fracture or malalignment. No advanced degenerative change. No radiographic soft tissue abnormality. IMPRESSION: No acute osseous injury. Electronically signed by: Lam Chopra M.D. 12/14/2017 5:15 PM Dictated Date/Time: 12/14/2017 5:14 PM
--- NOTE | 2017-12-14 17:16 | DIAGNOSTIC IMAGING REPORT ---
L KNEE 3 VIEWS CLINICAL HISTORY: 57 years-old Male presenting with fall. TECHNIQUE: Frontal, crosstable lateral, and sunrise views of the left knee were obtained. COMPARISON: 11/12/2017. FINDINGS: Postsurgical changes of constrained total left knee arthroplasty with patellar resurfacing. Old screw tracks noted in the medial tibial plateau. Osteopenia suggested. There is also periosteal reaction along the distal femoral metaphysis, which is not well appreciated on the prior exam. Minimal lucency subjacent to the medial tibial prosthetic component measuring 1 mm. Large knee joint effusion suspected. Calcification in the anterior knee may be either within the joint space representing loose bodies or more likely in the medial soft tissues. Another ossific body is noted posteriorly at the level of the distal femoral metaphysis. No acute fracture or malalignment. IMPRESSION: 1. No acute osseous injury. Periosteal reaction along the distal femoral metaphysis is nonspecific. 2. Total left knee arthroplasty without complication. 3. Large knee joint effusion. Possible loose bodies in the joint. Electronically signed by: Lam Chopra M.D. 12/14/2017 5:14 PM Dictated Date/Time: 12/14/2017 5:06 PM
[2017-12-14 17:24] VITALS: BP 138/75; PULSE 90; O2SAT 97
[2017-12-14] MEDS ORDERED: CLON1TAB10 PO (17:35)
[2017-12-14] MEDS ORDERED: GLC/500 PO (17:35)
== END 2017-12-14 17:53 | disposition home or self-care (01) ==
LOC: EDBD 16:07 → C.EDA 16:08
DX: S81.012A Laceration without foreign body, left knee, initial encounter (principal); W17.81XA Fall down embankment (hill), initial encounter; Z96.653 Presence of artificial knee joint, bilateral; I10 Essential (primary) hypertension; E11.9 Type 2 diabetes mellitus without complications; J45.909 Unspecified asthma, uncomplicated; I34.0 Nonrheumatic mitral (valve) insufficiency; I07.1 Rheumatic tricuspid insufficiency; E03.9 Hypothyroidism, unspecified; F20.9 Schizophrenia, unspecified; F31.9 Bipolar disorder, unspecified; K21.9 Gastro-esophageal reflux disease without esophagitis; E78.5 Hyperlipidemia, unspecified; Z79.01 Long term (current) use of anticoagulants; Z87.891 Personal history of nicotine dependence; Z79.899 Other long term (current) drug therapy

== ENCOUNTER 2018-06-08 09:56 | Observation (INO) ==
[2018-06-08 10:31] LABS: Basophils # (auto) 0.01 K/uL (0-0.2); Basophils % (auto) 0.1 %; Eosinophils # (auto) 0.02 K/uL (0-0.5); Eosinophils % (auto) 0.1 %; Hematocrit (blood only) 43.7 % (42-52); Hemoglobin 14.4 g/dL (14.0-18.0); Immature Granulocytes # (auto) 0.04 K/uL (0.00-0.02); Immature Granulocytes % (auto) 0.3 %; Lymphocytes % (auto) 7.3 %; Mean Corpuscular Volume 81.4 fL (80-100); Mean Platelet Volume 8.7 fL (7.4-10.4); Monocytes # (auto) 0.61 K/uL (0.11-0.59); Monocytes % (auto) 4.4 %; Neutrophils # (auto) 12.04 K/uL (1.4-6.5); Neutrophils % (auto) 87.8 %; Platelet Count 234 K/uL (130-400); RDW Coefficient of Variation 14.8 % (11.5-14.5); Red Blood Count 5.37 M/uL (4.7-6.1); White Blood Count 13.72 K/uL (4.8-10.8)
--- NOTE | 2018-06-08 10:31 | XRay Report ---
XR chest 1V portable HISTORY: Sepsis COMPARISON: Chest 02/23/2018. FINDINGS: No pneumothorax. No pleural effusions. The heart is normal in size. Tortuous thoracic aorta , unchanged. The right lung remains clear. Patchy left basilar airspace opacity is new from the prior study. IMPRESSION: There is a new hazy left basilar airspace opacity. This likely represents a developing pneumonia. Rec alia one month chest x-ray follow-up to ensure resolution. Electronically signed by: Errol Naik M.D. 06/08/2018 10:29 AM
[2018-06-08 10:32] LABS: Base Excess VBG 4.2 mEq/L; HCO3 VBG 29 mmol/L; PCO2 VBG 42 mmHg (38-50); PO2 VBG 27 mmHg; pH VBG 7.45 (7.36-7.41)
[2018-06-08 10:34] LABS: Oxygen Saturation VBG < 60.0 %
[2018-06-08 10:42] LABS: INR 1.1 (0.9-1.1); Partial Thromboplastin Time 25.1 Seconds (21.0-31.0); Prothrombin Time 10.6 Seconds (9.0-12.0)
--- NOTE | 2018-06-08 10:47 | Emergency Department Note ---
Entered by Marley Rhoades acting as a scribe for Yohnanes Contreras DO History of Present Illness General Chief complaint: Shortness of Breath/Dyspnea Source: patient History of Present Illness Onset (ago): hour(s) (this morning) Location: chest Severity: similar to prior episodes Pain Consistency: + other (persistent ) Quality: + other (shortness of breath) Associated symptoms: + cough (dry), + fever/chills and + other (positive runny nose; negative swelling in legs); no chest pain Treatments prior to arrival: other (acetaminophen) The patient is a 58 year old male who presents to the Emergency Room with complaints of persistent shortness of breath that began this morning. The patient states that he has a dry cough and a runny nose. The patient states that he has a fever. He states that his shortness of breath is similar to prior episodes, and states that he has a history of asthma. The patient denies swelling in his legs and chest pain. The patient states that he took 2 Acetaminophen 30 minutes prior to arrival. Home Medications Home Medications Medication Instructions Recorded Confirmed Type albuterol sulfate 2 puff INHALATION UD PRN 01/26/18 06/08/18 History buspirone 30 mg PO BID 01/26/18 06/08/18 History clonazepam 1 mg PO TID PRN 01/26/18 06/08/18 History clonazepam 2 mg PO HS 01/26/18 06/08/18 History divalproex 1,000 mg PO QAM 01/26/18 06/08/18 History divalproex 1,500 mg PO HS 01/26/18 06/08/18 History furosemide 40 mg PO DAILY 01/26/18 06/08/18 History levothyroxine 175 mcg PO DAILY 01/26/18 06/08/18 History lisinopril 10 mg PO DAILY 01/26/18 06/08/18 History loratadine 10 mg PO DAILY 01/26/18 06/08/18 History loxapine succinate 50 mg PO BID 01/26/18 06/08/18 History montelukast 10 mg PO PM 01/26/18 06/08/18 History omeprazole 20 mg PO DAILY 01/26/18 06/08/18 History polyethylene glycol 3350 17 g PO BID 01/26/18 06/08/18 History potassium chloride 20 meq PO BID 01/26/18 06/08/18 History pravastatin 20 mg PO DAILY 01/26/18 06/08/18 History ranitidine HCl 150 mg PO BID 01/26/18 06/08/18 History ziprasidone HCl 120 mg PO BID 01/26/18 06/08/18 History bupropion HCl 150 mg PO BID 02/23/18 06/08/18 History magnesium oxide 400 mg PO DAILY 02/23/18 06/08/18 History sildenafil [Viagra] 50 mg PO DAILY PRN 02/23/18 06/08/18 History metformin 500 mg PO BID 06/08/18 06/08/18 History Allergies Allergy/AdvReac Type Severity Reaction Status Date / Time No Known Allergies Allergy Verified 06/08/18 10:50 Past Med/Surg History Medical History Hypothyroidism (Chronic 05/20/12) Mitral regurgitation Schizoaffective disorder, bipolar type Sleep apnea Tricuspid regurgitation Diabetes Hypertension Surgical History S/P total knee arthroplasty 08/2017 Family History Other No pertinent family history Social History marital status: Single Current Living Situation: Alone Other Information That Helps Us Care for You: No Feels Safe at Home: Yes Safety Concerns: Feels Safe At This Time Smoking Status: Never smoker Hx Alcohol Use: No Hx Substance Use: No Beliefs That Will Affect Care: None Preferred Language: Qatari Communication Ability: Effective Bpm Analyst Required: No Review of Systems See HPI for pertinent positives & negatives. and A total of 10 systems reviewed and were otherwise negative Physical Exam Vital Signs Vital Signs - 24 hr 06/08/18 10:04 06/08/18 10:17 06/08/18 11:07 Temperature 37.0 C Temperature Source Oral Sepsis Recent Fever Within 48 Hours Yes Sepsis New/Unexplained Change in Mental Status No Sepsis Action Taken by Nursing Physician Notified Pulse Rate 125 H Pulse Rate [Apical] 123 H Pulse Rate [Right Finger] Respiratory Rate 24 20 Respiratory Effort / Characteristics Spontaneous Respiratory Depth Respiratory Pattern Blood Pressure 127/87 Blood Pressure [Left Arm] 117/86 Blood Pressure [Right Arm] Blood Pressure Mean 100 Blood Pressure Mean [Left Arm] 96 Blood Pressure Mean [Right Arm] Blood Pressure Position Lying Blood Pressure Position [Right Arm] Pulse Oximetry 93 94 94 Oxygen Delivery Method Room Air Room Air Room Air 06/08/18 12:02 06/08/18 13:51 06/08/18 14:17 Temperature 37.3 C Temperature Source Oral Sepsis Recent Fever Within 48 Hours Sepsis New/Unexplained Change in Mental Status Sepsis Action Taken by Nursing Pulse Rate 120 H Pulse Rate [Apical] 116 H Pulse Rate [Right Finger] 113 H Respiratory Rate 18 20 18 Respiratory Effort / Characteristics Non-Labored Spontaneous Respiratory Depth Normal Respiratory Pattern Regular Blood Pressure 95/55 L Blood Pressure [Left Arm] 109/64 Blood Pressure [Right Arm] 135/82 Blood Pressure Mean Blood Pressure Mean [Left Arm] 79 Blood Pressure Mean [Right Arm] 99 Blood Pressure Position Blood Pressure Position [Right Arm] Sitting Pulse Oximetry 91 90 94 Oxygen Delivery Method Room Air Room Air 06/08/18 15:05 06/08/18 15:48 06/08/18 16:00 Temperature 36.5 C Temperature Source Oral Sepsis Recent Fever Within 48 Hours Sepsis New/Unexplained Change in Mental Status Sepsis Action Taken by Nursing Pulse Rate Pulse Rate [Apical] Pulse Rate [Right Finger] 114 H 98 H Respiratory Rate 20 16 Respiratory Effort / Characteristics Non-Labored Spontaneous Non-Labored Respiratory Depth Normal Respiratory Pattern Regular Blood Pressure Blood Pressure [Left Arm] Blood Pressure [Right Arm] 124/55 L Blood Pressure Mean Blood Pressure Mean [Left Arm] Blood Pressure Mean [Right Arm] 78 Blood Pressure Position Blood Pressure Position [Right Arm] Lying Pulse Oximetry 93 93 Oxygen Delivery Method Room Air Room Air Room Air GENERAL: Patient is awake alert in no acute distress patient is resting comfortably and showing no signs of anxiety EYES: The conjunctivae are clear. The pupils are round and reactive. EARS, NOSE, MOUTH AND THROAT: The nose is without any evidence of any deformity. Mucous membranes are moist tongue is midline NECK: The neck is nontender and supple. RESPIRATORY: Diminished breath sounds were noted throughout. There is no definite rales rhonchi or wheezing appreciated. CARDIOVASCULAR: Tachycardic rate with regular rhythm was noted. There is no definite murmur peer GASTROINTESTINAL: The abdomen is soft. Bowel sounds are present in all quadrants. Abdomen is nontender MUSCULOSKELETAL/EXTREMITIES: There is no evidence of gross deformity full range of motion is noted in the hips and shoulders SKIN: There is no obvious evidence of any rash. There is pedal edema bilaterally peer NEUROLOGIC: Patient is awake alert and oriented x3. Course 0958: Past medical records reviewed. The patient was evaluated in room B2, and a complete history and physical examination were performed. 1206: [facility] will further evaluate the patient. Consultations Consultation #1: I discussed the [facility] who will further evaluate the patient. Time: 12:06 Administered Medications Albuterol (Duoneb) 3 ml NEB QIDR GLORIA Stop: 07/08/18 15:59 Last Admin: 06/08/18 15:52 Dose: 3 ml Levofloxacin/Dextrose (Levaquin/D5w) 500 mg in 100 mls @ 100 mls/hr IV Q24H GLORIA Stop: 06/15/18 15:59 Last Infusion: 06/08/18 17:31 Dose: 0 mls/hr Admin: 06/08/18 16:27 Dose: 100 mls/hr Lactated Ringer's (Lr) 1,000 mls @ 50 mls/hr IV .Q20H GLORIA Stop: 07/08/18 15:59 Last Admin: 06/08/18 15:29 Dose: 50 mls/hr Miscellaneous (Order Awaiting Action) 1 ea N/A QS GLORIA Stop: 07/08/18 15:59 Last Admin: 06/08/18 15:05 Dose: Not Given Discontinued Medications Piperacillin Sod/Tazobactam Sod (Zosyn) 4.5 gm in 120 mls @ 240 mls/hr IV NOW ONE Stop: 06/08/18 11:36 Last Infusion: 06/08/18 11:57 Dose: 0 mls/hr Admin: 06/08/18 11:12 Dose: 240 mls/hr Sodium Chloride (Nss 1000ml) 1,000 mls @ 999 mls/hr IV .Q1H1M ONE Stop: 06/08/18 12:20 Last Infusion: 06/08/18 12:35 Dose: 0 mls/hr Admin: 06/08/18 11:22 Dose: 999 mls/hr Magnesium Sulfate/Dextrose (Magnesium Sulfate / D5w) 1 gm in 100 mls @ 100 mls/ hr IV 1500 ONE Stop: 06/08/18 15:59 Last Infusion: 06/08/18 16:30 Dose: 0 mls/hr Admin: 06/08/18 15:16 Dose: 100 mls/hr Medical Decision Making Differential Diagnosis Differential diagnosis: Etiologies such as infections, reactive airway disease, COPD, pneumonia, pleural effusion, pulmonary edema, ARDS, pneumothorax, CHF, cardiac ischemia, cardiac tamponade, dysrhythmia, anemia, pulmonary embolism, musculoskeletal, gastrointestinal process, as well as others were entertained. Medical Records Attestation: I reviewed the patient's medical records. Home Medications Current Medication List: was personally reviewed by me Laboratory Data Attestation: I reviewed the patient's lab results. Result diagrams: 06/08/18 10:18 06/08/18 10:18 Lab Results 06/08/18 06/08/18 06/08/18 Range/Units 10:15 10:18 10:18 WBC 13.72 H (4.8-10.8) K/uL RBC 5.37 (4.7-6.1) M/uL Hgb 14.4 (14.0-18.0) g/dL Hct 43.7 (42-52) % MCV 81.4 (80-100) fL MCH 26.8 (25-34) pg MCHC 33.0 (32-36) g/dL RDW Std Deviation 43.0 (36.4-46.3) fL RDW Coeff of Joey 14.8 H (11.5-14.5) % Plt Count 234 (130-400) K/uL MPV 8.7 (7.4-10.4) fL Immature Gran % (Auto) 0.3 % Neut % (Auto) 87.8 % Lymph % (Auto) 7.3 % [place] % (Auto) 4.4 % Eos % (Auto) 0.1 % Baso % (Auto) 0.1 % Immature Gran # (Auto) 0.04 H (0.00-0.02) K/uL Neut # (Auto) 12.04 H (1.4-6.5) K/uL Lymph # (Auto) 1.00 L (1.2-3.4) K/uL [place] # (Auto) 0.61 H (0.11-0.59) K/uL Eos # (Auto) 0.02 (0-0.5) K/uL Baso # (Auto) 0.01 (0-0.2) K/uL ESR 4 (0-14) mm/hr PT (9.0-12.0) Seconds INR (0.9-1.1) APTT (21.0-31.0) Seconds PTT Ratio VBG pH (7.36-7.41) VBG pCO2 (38-50) mmHg VBG pO2 mmHg VBG HCO3 mmol/L VBG O2 Saturation % VBG Base Excess mEq/L Barometric Pressure mm/Hg Sodium (136-145) mmol/L Potassium (3.5-5.1) mmol/L Chloride (98-107) mmol/L Carbon Dioxide (21-32) mmol/L Anion Gap (3-11) BUN (7-18) mg/dl Creatinine (0.6-1.4) mg/dl Est Cr Clr Drug Dosing ml/min Est GFR ( Amer) Est GFR (Non-Af Amer) BUN/Creatinine Ratio (10-20) Glucose (70-99) mg/dl POC Glucose (70-99) Lactate (0.4-2.0) mmol/L Calcium (8.5-10.1) mg/dl Magnesium (1.8-2.4) mg/dl Total Bilirubin (0.2-1) mg/dl AST (15-37) U/L ALT (12-78) U/L Alkaline Phosphatase (45-117) U/L Troponin I (0-0.045) ng/ml C-Reactive Protein (0-0.29) mg/dl NT-Pro-B Natriuret Pep (0-900) pg/ml Total Protein (6.4-8.2) gm/dl Albumin (3.4-5.0) gm/dl Globulin (2.5-4.0) gm/dl Albumin/Globulin Ratio (0.9-2) Urine Color Urine Appearance (Clear) Urine pH (4.5-7.5) Ur Specific [place] (1.000-1.030) Urine Protein (Negative) Urine Glucose (UA) (Negative) Urine Ketones (Negative) Urine Blood (Negative) Urine Nitrite (Negative) Urine Bilirubin (Negative) Urine Urobilinogen (Negative) Ur Leukocyte Esterase (Negative) Valproic Acid (50-100) mcg/ml Influenza Type A (PCR) Neg for Influ A (Neg) Influenza Type B (PCR) Neg for Influ B (Neg) 06/08/18 06/08/18 06/08/18 Range/Units 10:18 10:18 10:18 WBC (4.8-10.8) K/uL RBC (4.7-6.1) M/uL Hgb (14.0-18.0) g/dL Hct (42-52) % MCV (80-100) fL MCH (25-34) pg MCHC (32-36) g/dL RDW Std Deviation (36.4-46.3) fL RDW Coeff of Joey (11.5-14.5) % Plt Count (130-400) K/uL MPV (7.4-10.4) fL Immature Gran % (Auto) % Neut % (Auto) % Lymph % (Auto) % [place] % (Auto) % Eos % (Auto) % Baso % (Auto) % Immature Gran # (Auto) (0.00-0.02) K/uL Neut # (Auto) (1.4-6.5) K/uL Lymph # (Auto) (1.2-3.4) K/uL [place] # (Auto) (0.11-0.59) K/uL Eos # (Auto) (0-0.5) K/uL Baso # (Auto) (0-0.2) K/uL ESR (0-14) mm/hr PT 10.6 (9.0-12.0) Seconds INR 1.1 (0.9-1.1) APTT 25.1 (21.0-31.0) Seconds PTT Ratio 1.0 VBG pH (7.36-7.41) VBG pCO2 (38-50) mmHg VBG pO2 mmHg VBG HCO3 mmol/L VBG O2 Saturation % VBG Base Excess mEq/L Barometric Pressure mm/Hg Sodium 129 L (136-145) mmol/L Potassium 4.2 (3.5-5.1) mmol/L Chloride 97 L (98-107) mmol/L Carbon Dioxide 29 (21-32) mmol/L Anion Gap 3.0 (3-11) BUN 14 (7-18) mg/dl Creatinine 1.22 (0.6-1.4) mg/dl Est Cr Clr Drug Dosing 79.3 ml/min Est GFR ( Amer) 74.2 Est GFR (Non-Af Amer) 64.0 BUN/Creatinine Ratio 11.3 (10-20) Glucose 101 H (70-99) mg/dl POC Glucose (70-99) Lactate 2.6 H* (0.4-2.0) mmol/L Calcium 9.0 (8.5-10.1) mg/dl Magnesium 1.6 L (1.8-2.4) mg/dl Total Bilirubin 0.3 (0.2-1) mg/dl AST 18 (15-37) U/L ALT 19 (12-78) U/L Alkaline Phosphatase 81 (45-117) U/L Troponin I < 0.015 (0-0.045) ng/ml C-Reactive Protein < 0.29 (0-0.29) mg/dl NT-Pro-B Natriuret Pep 71 (0-900) pg/ml Total Protein 7.0 (6.4-8.2) gm/dl Albumin 3.4 (3.4-5.0) gm/dl Globulin 3.6 (2.5-4.0) gm/dl Albumin/Globulin Ratio 0.9 (0.9-2) Urine Color Urine Appearance (Clear) Urine pH (4.5-7.5) Ur Specific [place] (1.000-1.030) Urine Protein (Negative) Urine Glucose (UA) (Negative) Urine Ketones (Negative) Urine Blood (Negative) Urine Nitrite (Negative) Urine Bilirubin (Negative) Urine Urobilinogen (Negative) Ur Leukocyte Esterase (Negative) Valproic Acid (50-100) mcg/ml Influenza Type A (PCR) (Neg) Influenza Type B (PCR) (Neg) 06/08/18 06/08/18 06/08/18 Range/Units 10:18 10:18 10:56 WBC (4.8-10.8) K/uL RBC (4.7-6.1) M/uL Hgb (14.0-18.0) g/dL Hct (42-52) % MCV (80-100) fL MCH (25-34) pg MCHC (32-36) g/dL RDW Std Deviation (36.4-46.3) fL RDW Coeff of Joey (11.5-14.5) % Plt Count (130-400) K/uL MPV (7.4-10.4) fL Immature Gran % (Auto) % Neut % (Auto) % Lymph % (Auto) % [place] % (Auto) % Eos % (Auto) % Baso % (Auto) % Immature Gran # (Auto) (0.00-0.02) K/uL Neut # (Auto) (1.4-6.5) K/uL Lymph # (Auto) (1.2-3.4) K/uL [place] # (Auto) (0.11-0.59) K/uL Eos # (Auto) (0-0.5) K/uL Baso # (Auto) (0-0.2) K/uL ESR (0-14) mm/hr PT (9.0-12.0) Seconds INR (0.9-1.1) APTT (21.0-31.0) Seconds PTT Ratio VBG pH 7.45 H (7.36-7.41) VBG pCO2 42 (38-50) mmHg VBG pO2 27 mmHg VBG HCO3 29 mmol/L VBG O2 Saturation < 60.0 % VBG Base Excess 4.2 mEq/L Barometric Pressure 745.7 mm/Hg Sodium (136-145) mmol/L Potassium (3.5-5.1) mmol/L Chloride (98-107) mmol/L Carbon Dioxide (21-32) mmol/L Anion Gap (3-11) BUN (7-18) mg/dl Creatinine (0.6-1.4) mg/dl Est Cr Clr Drug Dosing ml/min Est GFR ( Amer) Est GFR (Non-Af Amer) BUN/Creatinine Ratio (10-20) Glucose (70-99) mg/dl POC Glucose 149 H (70-99) Lactate (0.4-2.0) mmol/L Calcium (8.5-10.1) mg/dl Magnesium (1.8-2.4) mg/dl Total Bilirubin (0.2-1) mg/dl AST (15-37) U/L ALT (12-78) U/L Alkaline Phosphatase (45-117) U/L Troponin I (0-0.045) ng/ml C-Reactive Protein (0-0.29) mg/dl NT-Pro-B Natriuret Pep (0-900) pg/ml Total Protein (6.4-8.2) gm/dl Albumin (3.4-5.0) gm/dl Globulin (2.5-4.0) gm/dl Albumin/Globulin Ratio (0.9-2) Urine Color Urine Appearance (Clear) Urine pH (4.5-7.5) Ur Specific [place] (1.000-1.030) Urine Protein (Negative) Urine Glucose (UA) (Negative) Urine Ketones (Negative) Urine Blood (Negative) Urine Nitrite (Negative) Urine Bilirubin (Negative) Urine Urobilinogen (Negative) Ur Leukocyte Esterase (Negative) Valproic Acid 86 (50-100) mcg/ml Influenza Type A (PCR) (Neg) Influenza Type B (PCR) (Neg) 06/08/18 06/08/18 06/08/18 Range/Units 11:20 16:35 17:08 WBC (4.8-10.8) K/uL RBC (4.7-6.1) M/uL Hgb (14.0-18.0) g/dL Hct (42-52) % MCV (80-100) fL MCH (25-34) pg MCHC (32-36) g/dL RDW Std Deviation (36.4-46.3) fL RDW Coeff of Joey (11.5-14.5) % Plt Count (130-400) K/uL MPV (7.4-10.4) fL Immature Gran % (Auto) % Neut % (Auto) % Lymph % (Auto) % [place] % (Auto) % Eos % (Auto) % Baso % (Auto) % Immature Gran # (Auto) (0.00-0.02) K/uL Neut # (Auto) (1.4-6.5) K/uL Lymph # (Auto) (1.2-3.4) K/uL [place] # (Auto) (0.11-0.59) K/uL Eos # (Auto) (0-0.5) K/uL Baso # (Auto) (0-0.2) K/uL ESR (0-14) mm/hr PT (9.0-12.0) Seconds INR (0.9-1.1) APTT (21.0-31.0) Seconds PTT Ratio VBG pH (7.36-7.41) VBG pCO2 (38-50) mmHg VBG pO2 mmHg VBG HCO3 mmol/L VBG O2 Saturation % VBG Base Excess mEq/L Barometric Pressure mm/Hg Sodium (136-145) mmol/L Potassium (3.5-5.1) mmol/L Chloride (98-107) mmol/L Carbon Dioxide (21-32) mmol/L Anion Gap (3-11) BUN (7-18) mg/dl Creatinine (0.6-1.4) mg/dl Est Cr Clr Drug Dosing ml/min Est GFR ( Amer) Est GFR (Non-Af Amer) BUN/Creatinine Ratio (10-20) Glucose (70-99) mg/dl POC Glucose 98 (70-99) Lactate 2.4 H* (0.4-2.0) mmol/L Calcium (8.5-10.1) mg/dl Magnesium (1.8-2.4) mg/dl Total Bilirubin (0.2-1) mg/dl AST (15-37) U/L ALT (12-78) U/L Alkaline Phosphatase (45-117) U/L Troponin I (0-0.045) ng/ml C-Reactive Protein (0-0.29) mg/dl NT-Pro-B Natriuret Pep (0-900) pg/ml Total Protein (6.4-8.2) gm/dl Albumin (3.4-5.0) gm/dl Globulin (2.5-4.0) gm/dl Albumin/Globulin Ratio (0.9-2) Urine Color Yellow Urine Appearance Clear (Clear) Urine pH 8.0 H (4.5-7.5) Ur Specific [place] 1.009 (1.000-1.030) Urine Protein Negative (Negative) Urine Glucose (UA) Negative (Negative) Urine Ketones Negative (Negative) Urine Blood Negative (Negative) Urine Nitrite Negative (Negative) Urine Bilirubin Negative (Negative) Urine Urobilinogen Negative (Negative) Ur Leukocyte Esterase Negative (Negative) Valproic Acid (50-100) mcg/ml Influenza Type A (PCR) (Neg) Influenza Type B (PCR) (Neg) Imaging Data Radiologist's Impression: Radiology results as stated below per my review and the radiologist's interpretation: XR chest 1V portable HISTORY: Sepsis COMPARISON: Chest 02/23/2018. FINDINGS: No pneumothorax. No pleural effusions. The heart is normal in size. Tortuous thoracic aorta, unchanged. The right lung remains clear. Patchy left basilar airspace opacity is new from the prior study. IMPRESSION: There is a new hazy left basilar airspace opacity. This likely represents a developing pneumonia. Recommend one month chest x-ray follow-up to ensure resolution. Electronically signed by: Errol Naik M.D. 06/08/2018 10:29 AM ECG Data Attestation: I personally reviewed and interpreted this ECG as follows: Indication: SOB/dyspnea Rate (beats per minute): 124 Rhythm: sinus tachycardia Findings: + RBBB; no PVC Comparison ECG Date: from (02/23/2018) Change: no significant change Blood Pressure Blood Pressure Findings: Normal blood pressure MDM Narrative The patient is a 58-year-old male who presented to the emergency department by ambulance for an evaluation. The patient was treated with bronchodilator therapy prior to arrival. The patient continues to have shortness of breath. He was found to have hypoxia as well as signs of pneumonia on chest x-ray. The patient was treated with supplemental oxygen as well as IV antibiotics. I discussed the patient's laboratory and radiographic studies with him. Because of his ongoing symptoms I also discussed this case with the on-call [facility] hospitalist group. They have agreed to evaluate the patient in the emergency department for further management and disposition. Impression & Plan Pneumonia, Hypoxia, Tachycardia, Hyponatremia Discharge Plan Visit Data *Final* Discharge Date/Time: 06/08/18 13:51 Chief Complaint: Shortness of Breath/Dyspnea ED Provider: Yohannes Contreras Discharge Problem: Pneumonia, Hypoxia, Tachycardia, Hyponatremia Patient Disposition: Admitted As Inpatient Discharge Instructions Interventions: ED Discharge Assessment Last Done: 06/08/18 13:51 The scribe's documentation has been prepared under my direction and personally reviewed by me in its entirety. I confirm that the note above accurately reflects all work, treatment, procedures, and medical decision making performed by me.
[2018-06-08 10:49] LABS: Alanine Aminotransferase 19 U/L (12-78); Albumin Level 3.4 gm/dl (3.4-5.0); Aspartate Aminotransferase 18 U/L (15-37); BUN Creatinine Ratio 11.3 (10-20); Blood Urea Nitrogen 14 mg/dl (7-18); Carbon Dioxide 29 mmol/L (21-32); Chloride 97 mmol/L (98-107); Creatinine Clr Calc Pharmacy 79.3 ml/min; Est GFR (African American) 74.2; Glucose 101 mg/dl (70-99); Magnesium 1.6 mg/dl (1.8-2.4); Potassium 4.2 mmol/L (3.5-5.1); Sodium 129 mmol/L (136-145)
[2018-06-08 10:55] LABS: Albumin Globulin Ratio 0.9 (0.9-2); Alkaline Phosphatase 81 U/L (45-117); Bilirubin,Total 0.3 mg/dl (0.2-1); C Reactive Protein < 0.29 mg/dl (0-0.29); Globulin 3.6 gm/dl (2.5-4.0); NT Pro B Type Natriuretic Pept 71 pg/ml (0-900); Troponin I < 0.015 ng/ml (0-0.045)
[2018-06-08 11:03] LABS: Influenza A virus by PCR Neg for Influ A (Neg); Influenza B virus by PCR Neg for Influ B (Neg)
[2018-06-08] MEDS ORDERED: PIPERACILLIN/TAZOBACTAM 4.5 GM/120 ML BAG IV ONE (11:07)
[2018-06-08] MEDS ORDERED: PIPERACILL/TAZOBAC CONSULT ACTIVE PRN (11:07)
[2018-06-08] MEDS ORDERED: SODIUM CHLORIDE 0.9% 1000ML 1,000 ML IV ONE (11:20)
[2018-06-08 11:36] LABS: Appearance Urine Clear (Clear); Bilirubin Urine Negative (Negative); Blood Urine Negative (Negative); Color Urine Yellow; Glucose Urine UA Negative (Negative); Ketones Urine Negative (Negative); Leukocyte Esterase Urine Negative (Negative); Nitrite Urine Negative (Negative); Protein Urine Negative (Negative); Specific Gravity Urine 1.009 (1.000-1.030); Urobilinogen Urine Negative (Negative)
--- NOTE | 2018-06-08 13:31 | History & Physical Report ---
Date of Service June 08, 2018 Assessment & Plan (1) Pneumonia: CXR on 06/08 showed a left basilar airspace opacity. Similar episode in . - Levofloxacin (QTc was 451 on admission despite his antipsychotics.) - DuoNebs Q6h standing - [employer] evaluation as his psych history makes it more likely he would have aspiration. (2) Schizoaffective disorder, bipolar type: Somewhat quirky responses, but very pleasant. No major psych concerns at present. - Continue home meds (3) Diabetes: A1c was 5.9% in 04/2018. Only on metformin at home. - Hold metformin - Sliding scale (4) Hypothyroidism: Last TSH was 4.0 in 04/2018. No current signs of hypo-/hyperthyroidism. - Continue home Synthroid 175 mcg. (5) Hypertension: BP in ED was 110/60. - Continue home meds (6) Hyponatremia: Na on admission was 129. Usually runs in low 130 range, likely from psychiatric meds. No concerns for symptoms at this time. - Monitor Na (7) CKD (chronic kidney disease) stage 2, GFR 60-89 ml/min: Bs Cr ~1.0 - 1.2. At baseline on admission. - Monitor Cr (8) DVT prophylaxis: Low risk per calculator - SCDs History of Present Illness Primary Care Provider: Yohannes Carrillo MD 58yo M w/ hx of schizoaffective disorder who presents with pneumonia. Patient reports that he was in his normal state of health yesterday when he went to bed and woke up with shortness of breath, chills, and possible cough. He called EMS and was given a breathing treatment and reports improvement in his shortness of breath. He denies any nausea, vomiting, urination issues, diarrhea, or constipation. Allergies Allergy/AdvReac Type Severity Reaction Status Date / Time No Known Allergies Allergy Verified 06/08/18 10:50 Home Medications Home Medications Medication Instructions Recorded Confirmed Type albuterol sulfate 2 puff INHALATION UD PRN 01/26/18 06/08/18 History buspirone 30 mg PO BID 01/26/18 06/08/18 History clonazepam 1 mg PO TID PRN 01/26/18 06/08/18 History clonazepam 2 mg PO HS 01/26/18 06/08/18 History divalproex 1,000 mg PO QAM 01/26/18 06/08/18 History divalproex 1,500 mg PO HS 01/26/18 06/08/18 History furosemide 40 mg PO DAILY 01/26/18 06/08/18 History levothyroxine 175 mcg PO DAILY 01/26/18 06/08/18 History lisinopril 10 mg PO DAILY 01/26/18 06/08/18 History loratadine 10 mg PO DAILY 01/26/18 06/08/18 History loxapine succinate 50 mg PO BID 01/26/18 06/08/18 History montelukast 10 mg PO PM 01/26/18 06/08/18 History omeprazole 20 mg PO DAILY 01/26/18 06/08/18 History polyethylene glycol 3350 17 g PO BID 01/26/18 06/08/18 History potassium chloride 20 meq PO BID 01/26/18 06/08/18 History pravastatin 20 mg PO DAILY 01/26/18 06/08/18 History ranitidine HCl 150 mg PO BID 01/26/18 06/08/18 History ziprasidone HCl 120 mg PO BID 01/26/18 06/08/18 History bupropion HCl 150 mg PO BID 02/23/18 06/08/18 History magnesium oxide 400 mg PO DAILY 02/23/18 06/08/18 History sildenafil [Viagra] 50 mg PO DAILY PRN 02/23/18 06/08/18 History metformin 500 mg PO BID 06/08/18 06/08/18 History Past Med/Surg History Medical History Hypothyroidism (Chronic 05/20/12) Mitral regurgitation Schizoaffective disorder, bipolar type Sleep apnea Tricuspid regurgitation Diabetes Hypertension Surgical History S/P total knee arthroplasty 08/2017 Family History Other No pertinent family history Social History marital status: Single Current Living Situation: Alone Feels Safe at Home: Yes Smoking Status: Never smoker Hx Alcohol Use: No Hx Substance Use: No Beliefs That Will Affect Care: None Preferred Language: Kiswahili Review of Systems Constitutional: no fever, no chills and no sweats Eyes: no diplopia Ear, Nose, Mouth, Throat: no ear trauma, no nasal discharge and no dental pain Respiratory: + cough and + dyspnea; no chest congestion Cardiovascular: no chest pain, no dyspnea on exertion, no palpitations and no syncope Gastrointestinal: no abdominal pain, no belching, no constipation, no diarrhea/ loose stools, no blood in stools and no melena Musculoskeletal: no back pain, no joint pain and no muscle weakness Integumentary: no rash, no skin ulcer and no erythema Neurologic: no generalized weakness, no loss of sensation, no numbness and no paresthesia Psychiatric: no depression and no anxiety Endocrine: no fatigue, no polydipsia and no polyphagia Physical Exam 2 Vital Signs (Past 24 Hours): Last Vital Signs Temp 37.0 C 06/08/18 10:04 Pulse 116 H 06/08/18 12:02 Resp 18 06/08/18 12:02 BP 109/64 06/08/18 12:02 Pulse Ox 91 06/08/18 12:02 Constitutional: WD/WN, vitals as above Eyes: EOM intact bilaterally; no conjunctival abnormality ENMT: external ear and nose normal, oropharynx normal Neck: trachea midline, no thyromegaly normal visual inspection Respiratory: normal respiratory effort, lungs clear to auscultation no respiratory distress Cardiovascular: Rate/Rhythm: regular rhythm and + tachycardic Heart Sounds : normal S1 and normal S2 Vessels: no JVD Extremities: + edema Gastrointestinal (Abdomen): Inspection/Auscultation: abdomen normal to inspection; abdomen not distended Musculoskeletal: no cyanosis or clubbing, extremities motor strength 5/5 Skin: no rashes, warm and dry Neurologic: moves all extremities and awake Psychiatric: Orientation: alert, oriented to person and cooperative _ (1) Pneumonia Aspiration pneumonia type: Laterality: left Lung location: lower lobe of lung Pneumonia type: due to unspecified organism Qualified Code(s): J18.1 - Lobar pneumonia, unspecified organism
[2018-06-08] MEDS ORDERED: GLUCOSE 40% GEL 15 GM TUBE PO PRN (14:13)
[2018-06-08] MEDS ORDERED: clonazePAM 1 MG TAB PO PRN (14:13)
[2018-06-08] MEDS ORDERED: GLUCOSE 10 TABS/TUBE PO PRN (14:13)
[2018-06-08] MEDS ORDERED: GLUCAGON FOR INJ 1 MG VIAL SQ PRN (14:13)
[2018-06-08] MEDS ORDERED: DEXTROSE 50% 50 ML SYRINGE IV PRN (14:13)
[2018-06-08] MEDS ORDERED: CARBOHYDRATES FOR HYPOGLYCEMIA PO PRN (14:13)
[2018-06-08] MEDS ORDERED: ACETAMINOPHEN 325 MG TAB PO PRN (14:13)
[2018-06-08] MEDS ORDERED: MAGNESIUM SULFATE / D5W 1 GM/100 ML BAG IV ONE (15:00)
[2018-06-08] MEDS: LACTATED RINGER'S 1,000 ML IV SCH (15:29)
[2018-06-08] MEDS: ALBUT/IPRATROP 3MG/0.5MG NEB 3 ML VIAL NEB SCH ×2 (15:52→19:28)
[2018-06-08 15:57] VITALS: TEMP 97.7
[2018-06-08] MEDS ORDERED: LEVOFLOXACIN/D5W 500 MG/100 ML BAG IV SCH (16:00)
[2018-06-08] MEDS: INSULIN ASPART 100 UNITS/ML 3 ML PEN SC SCH ×2 (18:35→20:23)
[2018-06-08] MEDS ORDERED: Nursing to Pharmacy Communication ONE (18:50)
[2018-06-08] MEDS ORDERED: POLYETHYLENE (MIRALAX) 17 GM PACK PO PRN (19:09)
[2018-06-08] MEDS: ZIPRASIDONE HCL 20 MG CAP PO SCH (20:52)
[2018-06-08] MEDS: BuPROPion SR 150 MG TABCR PO SCH (20:53)
[2018-06-08] MEDS: ZIPRASIDONE HCL 80 MG CAP PO SCH (20:54)
[2018-06-08] MEDS ORDERED: MONTELUKAST SODIUM 10 MG TABLET PO SCH (21:00)
[2018-06-08] MEDS ORDERED: BusPIRone 15 MG TAB PO SCH (21:00)
[2018-06-08] MEDS ORDERED: DIVALPROEX DELAY RELEASE 500 MG TAB PO SCH (21:00)
[2018-06-08] MEDS ORDERED: clonazePAM 1 MG TAB PO SCH (21:00)
[2018-06-08] MEDS ORDERED: POLYETHYLENE (MIRALAX) 17 GM PACK PO SCH (21:00)
[2018-06-09 05:34] LABS: Hematocrit (blood only) 39.3 % (42-52); Mean Corpuscular Hgb Conc 33.1 g/dL (32-36); Mean Corpuscular Volume 82.7 fL (80-100); Mean Platelet Volume 8.7 fL (7.4-10.4); Platelet Count 203 K/uL (130-400); RDW Standard Deviation 45.8 fL (36.4-46.3); Red Blood Count 4.75 M/uL (4.7-6.1); White Blood Count 13.48 K/uL (4.8-10.8)
[2018-06-09 06:02] LABS: BUN Creatinine Ratio 10.7 (10-20); Calcium 8.5 mg/dl (8.5-10.1); Creatinine Clr Calc Pharmacy 87.1 ml/min; Est GFR (African American) 83.2; Est GFR (Non-African American) 71.8; Potassium 3.8 mmol/L (3.5-5.1)
[2018-06-09] MEDS ORDERED: LEVOTHYROXINE SODIUM 175 MCG TABLET PO SCH (06:30)
[2018-06-09] MEDS: ALBUT/IPRATROP 3MG/0.5MG NEB 3 ML VIAL NEB SCH ×3 (07:58→15:18)
[2018-06-09] MEDS: BuPROPion SR 150 MG TABCR PO SCH (08:01)
[2018-06-09] MEDS: ZIPRASIDONE HCL 20 MG CAP PO SCH (08:02)
[2018-06-09] MEDS: ZIPRASIDONE HCL 80 MG CAP PO SCH (08:02)
[2018-06-09] MEDS ORDERED: FUROSEMIDE 40 MG TAB PO SCH (09:00)
[2018-06-09] MEDS ORDERED: LORATADINE 10 MG TAB PO SCH (09:00)
[2018-06-09] MEDS ORDERED: PRAVASTATIN SOD 20 MG TAB PO SCH (09:00)
[2018-06-09] MEDS ORDERED: MAGNESIUM OXIDE 400 MG TAB PO SCH (09:00)
[2018-06-09] MEDS ORDERED: LISINOPRIL 10 MG TAB PO SCH (09:00)
[2018-06-09] MEDS ORDERED: PANTOprazole 40 MG TAB PO SCH (09:00)
[2018-06-09] MEDS: INSULIN ASPART 100 UNITS/ML 3 ML PEN SC SCH ×2 (10:00→13:42)
[2018-06-09] MEDS: LACTATED RINGER'S 1,000 ML IV SCH (10:49)
[2018-06-09] MEDS ORDERED: DIVALPROEX DELAY RELEASE 500 MG TAB PO SCH (12:00)
[2018-06-09] MEDS ORDERED: levoFLOXacin 750 MG TAB PO STA (14:13)
[2018-06-09 15:03] VITALS: BP 109/64
[2018-06-09 15:20] VITALS: PULSE 76; O2SAT 97
--- NOTE | 2018-06-12 11:43 | Discharge Summary ---
Date of Service date of admission - June 08, 2018 date of discharge - June 09, 2018 Admission HPI Per Admitting Provider 58yo male with hx of schizoaffective disorder who presents with pneumonia. Patient reports that he was in his normal state of health yesterday when he went to bed and woke up with shortness of breath, chills, and cough. He called EMS and was given a breathing treatment and reports improvement in his shortness of breath. He denies any nausea, vomiting, urination issues, diarrhea , or constipation. Principal Diagnosis LLL community-acquired pneumonia Discharge Exam Constitutional well developed and well nourished; no acute distress ENMT external ear and nose normal, oropharynx normal Respiratory normal respiratory effort; no respiratory distress Auscultation: + rales; no rhonchi and no wheezes Cardiovascular Rate/Rhythm: regular rate and regular rhythm Heart Sounds: normal S1 and normal S2; no murmur Vessels: posterior tibial pulses present and dorsalis pedis pulses present; no JVD Extremities: + edema (lymphedema - b/l -- chronic per patient ) Gastrointestinal (Abdomen) normal bowel sounds, soft, nontender, no hepatosplenomegaly Psychiatric Orientation: alert and oriented x 3 Discharge Data Allergies Allergy/AdvReac Type Severity Reaction Status Date / Time No Known Allergies Allergy Verified 06/08/18 10:50 Consultations speech therapy Procedures Performed chest x-ray -- LLL pneumonia. Hospital Course (1) Pneumonia: LLL. Likely community-acquired. Received 2 doses of levaquin while hospitalized. Blood cultures remained negative while here. Since QTc on EKG was top-normal (450msec) I elected NOT to use levaquin after discharge. Instead, I placed him on 5 additional days of augmentin as well as 5 days of doxycyline for atypical coverage. Seen by speech therapy - no dysphagia or aspiration identified. He should have a repeat cxr in 1 month to ensure radiographic resolution. S (2) Schizoaffective disorder, bipolar type: Stable while here. (3) Diabetes: Controlled while hospitalized. (4) Hypothyroidism: Last TSH was 4.0 in 04/2018. Synthroid 175 mcg daily. (5) Hypertension: Controlled during this brief stay. (6) Hyponatremia: Na on admission was 129. Usually runs in low 130 range, likely from psychiatric meds. Received some gentle hydration and discharge Na was 135. (7) CKD (chronic kidney disease) stage 2, GFR 60-89 ml/min: Bs Cr ~1.0 - 1.2. At baseline during the admission. Total Time Total Time Spent Total Time Spent (In Minutes): 30 Total Time Includes: Examination of the Patient, Discharge Planning and Medication Reconciliation Discharge Plan Discharge Items Patient Disposition: Home - Self-Care Reason For Visit: PNEUMONIA Discharge Diagnosis: pneumonia of the left lung Discharge Goals: Diagnostic testing Activity: As commented below Activity Comment: for the next few days take it easy and then gradually increase activity Non-emergency contact: Primary Care Provider Call non-emergency contact if: you have any medication questions and your temperature is above 100.5 Follow-up/Referrals: Yohannes Carrillo MD [Primary Care Provider] - 06/13/18 11:30 am (Please, follow up at Dr. Carrillo's office with his associate, Nelda TURNER, on SaturdayJune 13 at 11:30 am. *If you need to change this appointment, call the office at [phone].) Diet: Carb Consistent or DM2 Addtl Provider Instructions: From Rd Kowalski - Hospitalist - You were treated for a left sided pneumonia with IV antibiotics. You improved quickly with these measures. You also had low sodium at time of admission and this resolved by the 2nd hospital day. At this time we recommend - 1. augmentin (amoxicillin-clavulanate) 875mg twice a day for 5 days. Start the morning of 06/10/18. 2. doxycycline 100mg twice a day for 5 days. Start the morning of 06/10/18. This antibiotic can sometimes cause heartburn. It can also cause a rash if you go out in the sun while taking it but since the sunshine is fairly limited right now this likely will not be a problem. 3. take a probiotic twice daily for 7 days. Start these on 06/10/18 as well. This may help prevent diarrhea from the antibiotics. 4. have Dr. Carrillo repeat your chest x-ray in about 1 month to ensure all the pneumonia is gone. Follow-up -- See Dr. Carrillo or one of his associates this week. Please have Dr. Carrillo repeat your CBC and Sodium levels when you see them. Return to [facility] if - * you have persistent fevers over 100.5 degrees * you have worsening shortness of breath * you have severe diarrhea * you have worsening cough * any other concerns Prescriptions: New amoxicillin-pot clavulanate [Augmentin] 875-125 mg tablet 1 tab PO BID 5 Days Qty: 10 RF: 0 doxycycline hyclate 100 mg capsule 100 mg PO BID 5 Days Qty: 10 RF: 0 Lactobacillus acidoph-L.bulgar [Lactinex] 1 million cell tablet,chewable 3 tab PO BID 7 Days Qty: 42 RF: 0 Continue metformin 500 mg tablet 500 mg PO BID RF: 0 ziprasidone HCl 80 mg Capsule 120 mg PO BID RF: 0 furosemide 40 mg Tablet 40 mg PO DAILY RF: 0 levothyroxine 175 mcg Tablet 175 mcg PO DAILY RF: 0 clonazepam 1 mg Tablet 1 mg PO TID PRN (Reason: Anxiety) RF: 0 divalproex 500 mg Tablet,Delayed Release (Dr/Ec) 1,000 mg PO QAM RF: 0 divalproex 500 mg Tablet,Delayed Release (Dr/Ec) 1,500 mg PO HS RF: 0 buspirone 30 mg Tablet 30 mg PO BID RF: 0 lisinopril 10 mg Tablet 10 mg PO DAILY RF: 0 clonazepam 2 mg Tablet 2 mg PO HS RF: 0 omeprazole 20 mg Capsule,Delayed Release(Dr/Ec) 20 mg PO DAILY RF: 0 montelukast 10 mg Tablet 10 mg PO PM RF: 0 pravastatin 20 mg Tablet 20 mg PO DAILY RF: 0 ranitidine HCl 150 mg Capsule 150 mg PO BID RF: 0 polyethylene glycol 3350 17 gram/dose Powder 17 g PO BID RF: 0 albuterol sulfate 90 mcg/actuation Hfa Aerosol Inhaler 2 puff INHALATION UD PRN (Reason: Shortness Of Breath) RF: 0 loratadine 10 mg Tablet 10 mg PO DAILY RF: 0 loxapine succinate 50 mg Capsule 50 mg PO BID RF: 0 potassium chloride 20 mEq Tablet Extended Release 20 meq PO BID RF: 0 bupropion HCl 150 mg tablet sustained-release 12 hr 150 mg PO BID RF: 0 sildenafil [Viagra] 50 mg Tablet 50 mg PO DAILY PRN (Reason: Sexual Activity) RF: 0 magnesium oxide 400 mg Capsule 400 mg PO DAILY RF: 0 Stand-Alone Forms: [facility] Discharge Orders: Discharge Order (Routine); Ordered 06/09/18 Ordered By: Rd Kowalski Admission Data Admit Date/Time: 06/08/18 12:53 Attending Provider: Rd Kowalski Admit Provider: Jens Wade Primary Care Provider: Yohannes Carrillo Other Providers: Jens Wade Service: Medical Other Interventions: Discharge Summary Assessment (RN) Last Done: 06/09/18 15:02 Pending Studies at Discharge: Yes Studies:: Blood cultures DC Date/Time DO NOT enter until pt leaves facility: 06/09/18 15:46
== END 2018-06-09 15:46 | disposition home or self-care (01) ==
LOC: 4W 09:56 → ED 09:56 → SUATTDRO 12:53 → 4W 13:51

== ENCOUNTER 2018-08-24 12:43 | Inpatient (IN) ==
[2018-08-24] MEDS ORDERED: KETOROLAC 30 MG/ML VIAL IV STA (13:14)
[2018-08-24] MEDS ORDERED: SODIUM CHLORIDE 0.9% 1000ML 1,000 ML IV SCH (13:15)
[2018-08-24 13:23] LABS: Eosinophils # (auto) 0.02 K/uL (0-0.5); Eosinophils % (auto) 0.1 %; Hematocrit (blood only) 44.1 % (42-52); Hemoglobin 15.2 g/dL (14.0-18.0); Immature Granulocytes # (auto) 0.06 K/uL (0.00-0.02); Immature Granulocytes % (auto) 0.4 %; Lymphocytes # (auto) 0.88 K/uL (1.2-3.4); Lymphocytes % (auto) 5.2 %; Mean Corpuscular Hgb Conc 34.5 g/dL (32-36); Mean Corpuscular Volume 82.3 fL (80-100); Mean Platelet Volume 9.6 fL (7.4-10.4); Monocytes % (auto) 4.1 %; Neutrophils % (auto) 90.2 %; Platelet Count 208 K/uL (130-400); RDW Coefficient of Variation 16.1 % (11.5-14.5); Red Blood Count 5.36 M/uL (4.7-6.1); White Blood Count 16.96 K/uL (4.8-10.8)
[2018-08-24 13:41] LABS: Appearance Urine Clear (Clear); Bilirubin Urine Negative (Negative); Blood Urine Negative (Negative); Color Urine Yellow; Glucose Urine UA 2+ (Negative); Ketones Urine Trace (Negative); Leukocyte Esterase Urine Negative (Negative); Nitrite Urine Negative (Negative); Protein Urine Negative (Negative); Specific Gravity Urine 1.011 (1.000-1.030); Urobilinogen Urine Negative (Negative); pH Urine 7.5 (4.5-7.5)
--- NOTE | 2018-08-24 13:42 | XRay Report ---
XR chest 1V portable HISTORY: 58 years-old Male weakness acute weakness COMPARISON: Chest radiograph 06/08/2018 TECHNIQUE: Portable AP view of the chest FINDINGS: The cardiac silhouette is normal in size and unchanged. Prominence of the thoracic aortic arch. Tortu osity of the descending thoracic aorta. No pneumothorax, pleural effusion or overt pulmonary edema. A irspace opacities of the right upper lobe abutting the minor fissure are noted. Degenerative changes of the shoulders and spine. IMPRESSION: Alveolar opacities of the right upper lobe are suggestive of pneumonia. Follow-up imaging after treatment course is recommended to document resolution. The above report was generated using voice recognition software. It may contain grammatical, syntax o r spelling errors. Electronically signed by: Jet Eriwn M.D. 08/24/2018 1:40 PM
[2018-08-24 13:56] LABS: Partial Thromboplastin Time 26.5 Seconds (21.0-31.0); Prothrombin Time 10.2 Seconds (9.0-12.0)
[2018-08-24 14:00] LABS: Albumin Level 3.4 gm/dl (3.4-5.0); BUN Creatinine Ratio 8.3 (10-20); Calcium 9.5 mg/dl (8.5-10.1); Creatinine Clr Calc Pharmacy 79.4 ml/min; Est GFR (African American) 78.9; Est GFR (Non-African American) 68.1; Magnesium 1.9 mg/dl (1.8-2.4); Potassium 4.5 mmol/L (3.5-5.1)
[2018-08-24 14:11] LABS: Albumin Globulin Ratio 0.9 (0.9-2); Bilirubin,Total 0.3 mg/dl (0.2-1); Globulin 3.7 gm/dl (2.5-4.0); Total Protein 7.1 gm/dl (6.4-8.2)
[2018-08-24] MEDS ORDERED: AZITHROMYCIN 250 MG TAB PO ONE (14:17)
[2018-08-24] MEDS ORDERED: cefTRIAXone SODIUM 1,000 MG/50 ML BAG IV STA (14:17)
[2018-08-24] MEDS ORDERED: SODIUM CHLORIDE 0.9% 1000ML 1,000 ML IV ONE (14:38)
--- NOTE | 2018-08-24 15:28 | Emergency Department Note ---
Entered by Mauro Lion acting as a scribe for History of Present Illness General Chief complaint: Hypoglycemia Stated complaint: hypoglycemia Time Seen by Provider: 08/24/18 13:06 Source: patient Limitations: no limitations History of Present Illness Provider complaint: Hypoglycemia Onset (ago): hour(s) Location: head Pain Consistency: + constant Quality: + other (fatigue, tired - Hypoglycemia) Associated symptoms: + cough; no nausea/vomiting Treatments prior to arrival: other (Dextrose via EMS) The patient is a 58 year old white male with a past medical history of diabetes, CKD, insomnia, tricuspid regurgitation, schizoaffective disorder, and HDL who presents to the Emergency Room with complaints of constant fatigue that began yesterday. The patient states that he has felt weak and tired since yesterday. He called for EMS today who found his blood sugar to be in the 50s-60s on initial evaluation. They watched the patient for sometime, and the sugar was not coming up. EMS administered Dextrose and his sugar came up to the 130s. The patient does not a history of diabetes, but is only on Metformin. He complains of a persistent dry cough, be denies any fevers or chills. He has not vomited and has had normal bowel/bladder habits recently. The patient confirms that the edema in his lower extremities is baseline for him. Home Medications Home Medications Medication Instructions Recorded Confirmed Type albuterol sulfate 2 puff INHALATION QID PRN 01/26/18 08/24/18 History buspirone 30 mg PO BID 01/26/18 08/24/18 History clonazepam 1 mg PO TID PRN 01/26/18 08/24/18 History divalproex 1,000 mg PO QAM 01/26/18 08/24/18 History divalproex 1,500 mg PO HS 01/26/18 08/24/18 History furosemide 40 mg PO DAILY 01/26/18 08/24/18 History levothyroxine 175 mcg PO DAILYBB 01/26/18 08/24/18 History lisinopril 10 mg PO DAILY 01/26/18 08/24/18 History loratadine 10 mg PO DAILY 01/26/18 08/24/18 History loxapine succinate 100 mg PO DAILY 01/26/18 08/24/18 History montelukast 10 mg PO PM 01/26/18 08/24/18 History omeprazole 20 mg PO DAILYBB 01/26/18 08/24/18 History polyethylene glycol 3350 17 g PO BID 01/26/18 08/24/18 History potassium chloride 40 meq PO DAILY 01/26/18 08/24/18 History pravastatin 20 mg PO HS 01/26/18 08/24/18 History ranitidine HCl 150 mg PO BID 01/26/18 08/24/18 History ziprasidone HCl 120 mg PO BID 01/26/18 08/24/18 History magnesium oxide 400 mg PO DAILY 02/23/18 08/24/18 History sildenafil [Viagra] 50 mg PO DAILY PRN 02/23/18 08/24/18 History metformin 500 - 1,000 mg PO QPM 06/08/18 08/24/18 History aspirin [Aspir-81] 81 mg PO DAILY 07/07/18 08/24/18 History benztropine 1 - 2 mg PO DAILY 07/07/18 08/24/18 History bupropion HCl 150 mg PO BID 07/07/18 08/24/18 History doxycycline hyclate 100 mg PO BID 07/07/18 08/24/18 History fluticasone propionate 1 - 2 spray INTRANASAL DAILY 07/07/18 08/24/18 History metformin 850 mg PO HS PRN 07/07/18 08/24/18 History sennosides-docusate sodium [Senna 1 - 2 tab PO HS 07/07/18 08/24/18 History Plus] Allergies Allergy/AdvReac Type Severity Reaction Status Date / Time No Known Allergies Allergy Verified 08/24/18 14:15 Past Med/Surg History Medical History Hypothyroidism (Chronic 05/20/12) Mitral regurgitation Schizoaffective disorder, bipolar type Sleep apnea Tricuspid regurgitation Diabetes Hypertension Surgical History S/P total knee arthroplasty 08/2017 Family History Other No pertinent family history Social History Preferred Language: Tongan Communication Ability: Effective Visual Impairment: Limited Hearing Ability: Normal Beliefs That Will Affect Care: None marital status: Single Current Living Situation: Alone Feels Safe at Home: Yes Smoking Status: Never smoker Hx Alcohol Use: No Hx Substance Use: No Review of Systems See HPI for pertinent positives & negatives. and A total of 10 systems reviewed and were otherwise negative Physical Exam Vital Signs Vital Signs - 24 hr 08/24/18 12:49 08/24/18 12:54 08/24/18 12:56 Temperature 37.0 C Temperature Source Oral Sepsis Recent Fever Within 48 Hours No Sepsis Action Taken by Nursing No Action Required Pulse Rate 115 H 114 H 114 H Pulse Rate from SpO2 Sensor 134 H Respiratory Rate 12 14 18 Blood Pressure 157/108 H 157/108 H Blood Pressure Mean 124 124 Pulse Oximetry 90 100 Oxygen Delivery Method Room Air 08/24/18 13:00 08/24/18 13:16 08/24/18 13:32 Temperature Temperature Source Sepsis Recent Fever Within 48 Hours Sepsis Action Taken by Nursing Pulse Rate 114 H 119 H 119 H Pulse Rate from SpO2 Sensor 113 H 189 H Respiratory Rate 26 H Blood Pressure Blood Pressure Mean Pulse Oximetry 100 100 97 Oxygen Delivery Method Room Air 08/24/18 13:33 08/24/18 14:00 08/24/18 14:30 Temperature Temperature Source Sepsis Recent Fever Within 48 Hours Sepsis Action Taken by Nursing Pulse Rate 118 H 114 H 117 H Pulse Rate from SpO2 Sensor 118 H 113 H 119 H Respiratory Rate 19 15 26 H Blood Pressure 140/97 156/82 H Blood Pressure Mean 111 106 Pulse Oximetry 100 92 96 Oxygen Delivery Method 08/24/18 14:31 08/24/18 14:52 08/24/18 15:00 Temperature Temperature Source Sepsis Recent Fever Within 48 Hours Sepsis Action Taken by Nursing Pulse Rate 116 H 117 H 113 H Pulse Rate from SpO2 Sensor 116 H 117 H 113 H Respiratory Rate 26 H 24 19 Blood Pressure 129/77 146/79 H 137/72 Blood Pressure Mean 94 101 93 Pulse Oximetry 95 95 95 Oxygen Delivery Method GENERAL: Well appearing, well nourished, NAD, non-toxic. Wearing glasses. EYE EXAM: Normal conjunctiva. PERRL, no anisocoria and EOM's grossly intact w/o pain. OROPHARYNX: Mucous membranes are dry. Normal dentition. NECK: Supple, no nuchal rigidity, no adenopathy, non-tender. no signs of meningismus. LUNGS: Bibasilar crackles. Normal chest wall mechanics. HEART: Tachycardia, normal rhythm no MRG. ABDOMEN: Abdomen soft, non-tender, normo-active bowel sounds, no masses, no rebound or guarding. BACK: No CVA TTP. SKIN: No rashes and no bruising. UPPER EXTREMITIES: Upper extremities are grossly normal. LOWER EXTREMITIES: non-pitting edema. Symmetric without erythema. Negative Mars's sign. No calf pain. NEURO EXAM: Awake, alert, and oriented x3. Cranial nerves II-XII grossly intact. Moves all 4 extremities on command w/o issue. Course 1309: The patient was evaluated in room C2, and a complete history and physical examination were performed. 1451: I reviewed the patient's case with Dr. Arellano [facility] Hospitalist. He will evaluate the patient for further management. Administered Medications Sodium Chloride (Nss 1000ml) 1,000 mls @ 999 mls/hr IV .Q1H1M ONE Stop: 08/24/18 15:38 Last Admin: 08/24/18 14:53 Dose: 999 mls/hr Documented by: [id number] Discontinued Medications Azithromycin (Zithromax) 500 mg PO NOW ONE Stop: 08/24/18 14:18 Last Admin: 08/24/18 14:26 Dose: 500 mg Documented by: [id number] Sodium Chloride (Nss 1000ml) 1,000 mls @ 999 mls/hr IV .Q1H1M GLORIA Stop: 08/24/18 14:15 Last Infusion: 08/24/18 14:31 Dose: 0 mls/hr Documented by: [id number] Admin: 08/24/18 13:42 Dose: 999 mls/hr Documented by: [id number] Ceftriaxone Sodium (Rocephin) 1,000 mg in 50 mls @ 100 mls/hr IV NOW STA Stop: 08/24/18 14:46 Last Infusion: 08/24/18 14:54 Dose: 0 mls/hr Documented by: [id number] Admin: 08/24/18 14:26 Dose: 100 mls/hr Documented by: [id number] Ketorolac Tromethamine (Toradol) 30 mg IV NOW STA Stop: 08/24/18 13:15 Last Admin: 08/24/18 13:42 Dose: 30 mg Documented by: [id number] Medical Decision Making Medical Records Attestation: I reviewed the patient's medical records. Home Medications Current Medication List: was personally reviewed by me Laboratory Data Attestation: I reviewed the patient's lab results. Result diagrams: 08/24/18 13:03 08/24/18 13:28 Lab Results 08/24/18 08/24/18 08/24/18 Range/Units 12:53 13:03 13:03 WBC 16.96 H (4.8-10.8) K/uL RBC 5.36 (4.7-6.1) M/uL Hgb 15.2 (14.0-18.0) g/dL Hct 44.1 (42-52) % MCV 82.3 (80-100) fL MCH 28.4 (25-34) pg MCHC 34.5 (32-36) g/dL RDW Std Deviation 48.0 H (36.4-46.3) fL RDW Coeff of Joey 16.1 H (11.5-14.5) % Plt Count 208 (130-400) K/uL MPV 9.6 (7.4-10.4) fL Immature Gran % (Auto) 0.4 % Neut % (Auto) 90.2 % Lymph % (Auto) 5.2 % [place] % (Auto) 4.1 % Eos % (Auto) 0.1 % Baso % (Auto) 0.0 % Immature Gran # (Auto) 0.06 H (0.00-0.02) K/uL Neut # (Auto) 15.30 H (1.4-6.5) K/uL Lymph # (Auto) 0.88 L (1.2-3.4) K/uL [place] # (Auto) 0.70 H (0.11-0.59) K/uL Eos # (Auto) 0.02 (0-0.5) K/uL Baso # (Auto) 0.00 (0-0.2) K/uL PT Cancelled INR Cancelled APTT (21.0-31.0) Seconds PTT Ratio Sodium Potassium Chloride Carbon Dioxide Anion Gap BUN Creatinine Est Cr Clr Drug Dosing Est GFR ( Amer) Est GFR (Non-Af Amer) BUN/Creatinine Ratio Glucose POC Glucose 190 H (70-99) Calcium Magnesium Total Bilirubin AST ALT Alkaline Phosphatase Troponin I Total Protein Albumin Globulin Albumin/Globulin Ratio TSH Urine Color Urine Appearance (Clear) Urine pH (4.5-7.5) Ur Specific [place] (1.000-1.030) Urine Protein (Negative) Urine Glucose (UA) (Negative) Urine Ketones (Negative) Urine Blood (Negative) Urine Nitrite (Negative) Urine Bilirubin (Negative) Urine Urobilinogen (Negative) Ur Leukocyte Esterase (Negative) 08/24/18 08/24/18 08/24/18 Range/Units 13:03 13:03 13:28 WBC (4.8-10.8) K/uL RBC (4.7-6.1) M/uL Hgb (14.0-18.0) g/dL Hct (42-52) % MCV (80-100) fL MCH (25-34) pg MCHC (32-36) g/dL RDW Std Deviation (36.4-46.3) fL RDW Coeff of Joey (11.5-14.5) % Plt Count (130-400) K/uL MPV (7.4-10.4) fL Immature Gran % (Auto) % Neut % (Auto) % Lymph % (Auto) % [place] % (Auto) % Eos % (Auto) % Baso % (Auto) % Immature Gran # (Auto) (0.00-0.02) K/uL Neut # (Auto) (1.4-6.5) K/uL Lymph # (Auto) (1.2-3.4) K/uL [place] # (Auto) (0.11-0.59) K/uL Eos # (Auto) (0-0.5) K/uL Baso # (Auto) (0-0.2) K/uL PT 10.2 INR 1.0 APTT 26.5 (21.0-31.0) Seconds PTT Ratio 1.0 Sodium Cancelled Potassium Cancelled Chloride Cancelled Carbon Dioxide Cancelled Anion Gap Cancelled BUN Cancelled Creatinine Cancelled Est Cr Clr Drug Dosing Cancelled Est GFR ( Amer) Cancelled Est GFR (Non-Af Amer) Cancelled BUN/Creatinine Ratio Cancelled Glucose Cancelled POC Glucose (70-99) Calcium Cancelled Magnesium Cancelled Total Bilirubin Cancelled AST Cancelled ALT Cancelled Alkaline Phosphatase Cancelled Troponin I Cancelled Total Protein Cancelled Albumin Cancelled Globulin Cancelled Albumin/Globulin Ratio Cancelled TSH Cancelled Urine Color Urine Appearance (Clear) Urine pH (4.5-7.5) Ur Specific [place] (1.000-1.030) Urine Protein (Negative) Urine Glucose (UA) (Negative) Urine Ketones (Negative) Urine Blood (Negative) Urine Nitrite (Negative) Urine Bilirubin (Negative) Urine Urobilinogen (Negative) Ur Leukocyte Esterase (Negative) 08/24/18 08/24/18 Range/Units 13:28 13:33 WBC (4.8-10.8) K/uL RBC (4.7-6.1) M/uL Hgb (14.0-18.0) g/dL Hct (42-52) % MCV (80-100) fL MCH (25-34) pg MCHC (32-36) g/dL RDW Std Deviation (36.4-46.3) fL RDW Coeff of Joey (11.5-14.5) % Plt Count (130-400) K/uL MPV (7.4-10.4) fL Immature Gran % (Auto) % Neut % (Auto) % Lymph % (Auto) % [place] % (Auto) % Eos % (Auto) % Baso % (Auto) % Immature Gran # (Auto) (0.00-0.02) K/uL Neut # (Auto) (1.4-6.5) K/uL Lymph # (Auto) (1.2-3.4) K/uL [place] # (Auto) (0.11-0.59) K/uL Eos # (Auto) (0-0.5) K/uL Baso # (Auto) (0-0.2) K/uL PT INR APTT (21.0-31.0) Seconds PTT Ratio Sodium 133 L Potassium 4.5 Chloride 98 Carbon Dioxide 26 Anion Gap 10.0 BUN 10 Creatinine 1.16 Est Cr Clr Drug Dosing 79.4 Est GFR ( Amer) 78.9 Est GFR (Non-Af Amer) 68.1 BUN/Creatinine Ratio 8.3 L Glucose 101 H POC Glucose (70-99) Calcium 9.5 Magnesium 1.9 Total Bilirubin 0.3 AST 21 ALT 21 Alkaline Phosphatase 77 Troponin I Total Protein 7.1 Albumin 3.4 Globulin 3.7 Albumin/Globulin Ratio 0.9 TSH 2.590 Urine Color Yellow Urine Appearance Clear (Clear) Urine pH 7.5 (4.5-7.5) Ur Specific [place] 1.011 (1.000-1.030) Urine Protein Negative (Negative) Urine Glucose (UA) 2+ H (Negative) Urine Ketones Trace H (Negative) Urine Blood Negative (Negative) Urine Nitrite Negative (Negative) Urine Bilirubin Negative (Negative) Urine Urobilinogen Negative (Negative) Ur Leukocyte Esterase Negative (Negative) Imaging Data Radiologist's Impression: Radiology results as stated below per my review and the radiologist's interpretation: XR chest 1V portable HISTORY: 58 years-old Male weakness acute weakness COMPARISON: Chest radiograph 06/08/2018 TECHNIQUE: Portable AP view of the chest FINDINGS: The cardiac silhouette is normal in size and unchanged. Prominence of the thoracic aortic arch. Tortuosity of the descending thoracic aorta. No pneumothorax, pleural effusion or overt pulmonary edema. Airspace opacities of the right upper lobe abutting the minor fissure are noted. Degenerative changes of the shoulders and spine. IMPRESSION: Alveolar opacities of the right upper lobe are suggestive of pneumonia. Follow-up imaging after treatment course is recommended to document resolution. The above report was generated using voice recognition software. It may contain grammatical, syntax or spelling errors. Electronically signed by: Jet Erwin M.D. 08/24/2018 1:40 PM ECG Data Attestation: I personally reviewed and interpreted this ECG as follows: Indication: weakness Rate (beats per minute): 115 Rhythm: sinus tachycardia Findings: + other (Wide QRS) and + RBBB; no ST depression and no ST elevation Comparison ECG Date: from (06/08/2016) Change: no significant change Blood Pressure Blood Pressure Findings: Elevated blood pressure Blood Pressure Disposition: further management by hospitalist [facility] Narrative The patient is a 58 year old male with a past medical history of diabetes, CKD, insomnia, tricuspid regurgitation, schizoaffective disorder, and HDL who presents to the Emergency Room with complaints of constant fatigue that began yesterday. Differential Diagnosis includes: Differential includes acute coronary syndrome, myocardial infarction, CVA, TIA, anemia, infection, pneumonia, UTI, pyelonephritis, poor nutrition, dehydration, electrolyte disturbance,hypoglycemia. Patient was seen and evaluated the bedside. The patient was presenting with some fatigue some productive cough and associated low blood sugar. The patient does have some bibasilar crackles nonpitting lower extremity edema. Patient was tachycardic upon initial presentation. Patient had blood work completed along with EKG and chest x-ray. The patient does have concern for possible right upper lobe pneumonia does have a white count. Patient kidney function is normal. Patient is tachycardic does have a right bundle branch block which does appear old. No obvious ischemic changes. Patient does not complain of any chest pains. Given the patient's prior history associated white blood cell count and tachycardia with associated pneumonia I believe he would benefit from further inpatient treatment. I did speak the on-call hospitalist who agreed to further evaluate to the patient. Patient was admitted to the medicine service. Impression & Plan Right upper lobe pneumonia, Sepsis, Hypoglycemia Discharge Plan Visit Data Chief Complaint: Hypoglycemia Stated Complaint: hypoglycemia ED Provider: Oliver Aly Discharge Problem: Right upper lobe pneumonia, Sepsis, Hypoglycemia Patient Disposition: Being Evaluated by Hospitalist Forms Stand Alone Forms: My [facility] Prescriptions Prescriptions: No Action metformin 500 mg tablet 500 - 1,000 mg PO QPM RF: 0 ziprasidone HCl 80 mg Capsule 120 mg PO BID RF: 0 furosemide 40 mg Tablet 40 mg PO DAILY RF: 0 levothyroxine 175 mcg Tablet 175 mcg PO DAILYBB RF: 0 clonazepam 1 mg Tablet 1 mg PO TID PRN (Reason: Anxiety) RF: 0 divalproex 500 mg Tablet,Delayed Release (Dr/Ec) 1,000 mg PO QAM RF: 0 divalproex 500 mg Tablet,Delayed Release (Dr/Ec) 1,500 mg PO HS RF: 0 buspirone 30 mg Tablet 30 mg PO BID RF: 0 lisinopril 10 mg Tablet 10 mg PO DAILY RF: 0 omeprazole 20 mg Capsule,Delayed Release(Dr/Ec) 20 mg PO DAILYBB RF: 0 montelukast 10 mg Tablet 10 mg PO PM RF: 0 pravastatin 20 mg Tablet 20 mg PO HS RF: 0 ranitidine HCl 150 mg Capsule 150 mg PO BID RF: 0 polyethylene glycol 3350 17 gram/dose Powder 17 g PO BID RF: 0 albuterol sulfate 90 mcg/actuation Hfa Aerosol Inhaler 2 puff INHALATION QID PRN (Reason: Shortness Of Breath) RF: 0 loratadine 10 mg Tablet 10 mg PO DAILY RF: 0 loxapine succinate 50 mg Capsule 100 mg PO DAILY RF: 0 potassium chloride 20 mEq Tablet Extended Release 40 meq PO DAILY RF: 0 sildenafil [Viagra] 50 mg Tablet 50 mg PO DAILY PRN (Reason: Sexual Activity) RF: 0 magnesium oxide 400 mg Capsule 400 mg PO DAILY RF: 0 doxycycline hyclate 100 mg Capsule 100 mg PO BID RF: 0 sennosides-docusate sodium [Senna Plus] 8.6-50 mg Tablet 1 - 2 tab PO HS RF: 0 metformin 850 mg Tablet 850 mg PO HS PRN (Reason: IF BSG HIGH) RF: 0 aspirin [Aspir-81] 81 mg Tablet,Delayed Release (Dr/Ec) 81 mg PO DAILY RF: 0 bupropion HCl 100 mg Tablet Sustained-Release 12 Hr 150 mg PO BID RF: 0 benztropine 1 mg Tablet 1 - 2 mg PO DAILY RF: 0 fluticasone propionate 50 mcg/actuation [place],Suspension 1 - 2 spray INTRANASAL DAILY RF: 0 Referrals Referrals: Yohannes Carrillo MD [Primary Care Provider] - The scribe's documentation has been prepared under my direction and personally reviewed by me in its entirety. I confirm that the note above accurately reflects all work, treatment, procedures, and medical decision making performed by me.
[2018-08-24] MEDS ORDERED: ACETAMINOPHEN 325 MG TAB PO PRN (16:17)
[2018-08-24] MEDS ORDERED: ONDANSETRON INJ 2 MG/ML 2 ML VIAL IV PRN (16:17)
[2018-08-24] MEDS ORDERED: ALBUTEROL HFA 8 GM INHALER INH PRN (16:17)
[2018-08-24] MEDS ORDERED: clonazePAM 1 MG TAB PO PRN (16:17)
[2018-08-24] MEDS ORDERED: cefTRIAXone SODIUM 1,000 MG in DEXTROSE 5% 50 ML IV SCH (18:30)
--- NOTE | 2018-08-24 19:33 | History & Physical Report ---
Date of Service August 24, 2018 Assessment & Plan (1) Right upper lobe pneumonia: will treat with Rocephin and Zithromax has been sick for several days, coughing, productive of sputum, says he never looks at what color has mild leukocytosis and tachycardia CXR shows right sided pneumonia admit to medical floor, IV fluids (2) Sepsis: qualifies with pneumonia as well as leukocytosis and tachycardia no signs of organ failure, no hypotension treat with IV fluids and Antibiotics repeat labs in the AM (3) Hypoglycemia: likely due to poor oral intake he claims his A1c was 5.9 hold oral agents will NOT use diabetic diet as he came in with hypoglycemia, prone to this (4) CKD (chronic kidney disease) stage 2, GFR 60-89 ml/min: Cr is stable follow UO (5) Tachycardia: due to sepsis improved already with IV fluids (6) Bipolar 1 disorder: continue home regimen mood is stable currently History of Present Illness Chief Complaint: I feel terrible Primary Care Provider: Yohannes Carrillo MD 58 yo male with h/o bipolar disorder and schizophrenia presented to the ED after being found to be profoundly weak and short of breath in his apartment. Glucose was low in the 40's and he was brought to the ED via EMS. He reported that he had been feeling ill for about one week. He was experiencing shortness of breath on exertion and then some dyspnea at rest. He had a cough with occasional sputum production, he never looked at the color or if there was blood. He felt like his chest was congested and at times he was having a diffi cult time bringing up phlegm. His breathing got significantly worse the last two days prior to admission. His appetite was poor and he was drinking less fluids than normal for several days. He had a fever and chills and sweats at home. Nothing made his symptoms better, he only continued to ge worse. In the ED he was tachycardic in 110's and had a leukocytosis of 16k. He was afebrile but he was very diaphoretic and appeared pale. He was found to have right sided infiltrates on CXR. He was treated with ceftriaxone and zithromax and IV fluids in the ED. Admission was requested. Allergies Allergy/AdvReac Type Severity Reaction Status Date / Time No Known Allergies Allergy Verified 08/24/18 14:15 Home Medications Home Medications Medication Instructions Recorded Confirmed Type albuterol sulfate 2 puff INHALATION QID PRN 01/26/18 08/24/18 History buspirone 30 mg PO BID 01/26/18 08/24/18 History clonazepam 1 mg PO TID PRN 01/26/18 08/24/18 History divalproex 1,000 mg PO QAM 01/26/18 08/24/18 History divalproex 1,500 mg PO HS 01/26/18 08/24/18 History furosemide 40 mg PO DAILY 01/26/18 08/24/18 History levothyroxine 175 mcg PO DAILYBB 01/26/18 08/24/18 History lisinopril 10 mg PO DAILY 01/26/18 08/24/18 History loratadine 10 mg PO DAILY 01/26/18 08/24/18 History loxapine succinate 100 mg PO DAILY 01/26/18 08/24/18 History montelukast 10 mg PO PM 01/26/18 08/24/18 History omeprazole 20 mg PO DAILYBB 01/26/18 08/24/18 History polyethylene glycol 3350 17 g PO BID 01/26/18 08/24/18 History potassium chloride 40 meq PO DAILY 01/26/18 08/24/18 History pravastatin 20 mg PO HS 01/26/18 08/24/18 History ranitidine HCl 150 mg PO BID 01/26/18 08/24/18 History ziprasidone HCl 120 mg PO BID 01/26/18 08/24/18 History magnesium oxide 400 mg PO DAILY 02/23/18 08/24/18 History sildenafil [Viagra] 50 mg PO DAILY PRN 02/23/18 08/24/18 History metformin 500 - 1,000 mg PO QPM 06/08/18 08/24/18 History aspirin [Aspir-81] 81 mg PO DAILY 07/07/18 08/24/18 History benztropine 1 - 2 mg PO DAILY 07/07/18 08/24/18 History bupropion HCl 150 mg PO BID 07/07/18 08/24/18 History doxycycline hyclate 100 mg PO BID 07/07/18 08/24/18 History fluticasone propionate 1 - 2 spray INTRANASAL DAILY 07/07/18 08/24/18 History metformin 850 mg PO HS PRN 07/07/18 08/24/18 History sennosides-docusate sodium [Senna 1 - 2 tab PO HS 07/07/18 08/24/18 History Plus] Past Med/Surg History Medical History Hypothyroidism (Chronic 05/20/12) Mitral regurgitation Schizoaffective disorder, bipolar type Sleep apnea Tricuspid regurgitation Diabetes Hypertension Surgical History S/P total knee arthroplasty 08/2017 Family History Other No pertinent family history Social History Preferred Language: Occitan Communication Ability: Effective Visual Impairment: Limited Hearing Ability: Normal Motor Vehicles Supervisor Required: No Beliefs That Will Affect Care: None marital status: Single Current Living Situation: Alone Other Information That Helps Us Care for You: No Feels Safe at Home: Yes Safety Concerns: Feels Safe At This Time Smoking Status: Never smoker Do You Dip or Chew Tobacco: No Second Hand Exposure: No Tobacco Cessation Education Requested by Patient: No Hx Alcohol Use: No Hx Substance Use: No Review of Systems Review of Systems: All systems reviewed & are unremarkable except as noted in HPI & below Constitutional: + fever, + chills, + sweats, + body aches, + fatigue, + malaise and + weakness; no weight loss, no weight gain, no increased appetite and no insomnia Eyes: as per Subjective / HPI Ear, Nose, Mouth, Throat: as per Subjective / HPI Respiratory: + cough, + dyspnea, + dyspnea on exertion and + sputum production; no pain with cough Cardiovascular: no chest pain Gastrointestinal: no abdominal pain, no nausea, no vomiting, no constipation and no diarrhea/loose stools Physical Exam Constitutional: WD/WN, vitals as above Eyes: PERRL, conjunctivae normal, anicteric sclerae ENMT: external ear and nose normal, oropharynx normal Neck: trachea midline, no thyromegaly Respiratory: normal respiratory effort and normal percussion; no respiratory distress, no labored breathing and does not use accessory muscles Auscultation: + crackles (right side); no rales, no rhonchi and no wheezes Cardiovascular: Rate/Rhythm: regular rhythm and + tachycardic Heart Sounds: normal S1 and normal S2; no murmur and no cardiac rub Vessels: normal peripheral pulses Extremities: normal capillary refill and + pedal edema Gastrointestinal (Abdomen): normal bowel sounds, soft, nontender, no hepatosplenomegaly Musculoskeletal: no cyanosis or clubbing, extremities motor strength 5/5 Skin: no rashes, warm and dry Neurologic: patellar DTR's 2+ bilat, sensation intact and PERRL, EOMI, accommodation nl, no face palsy, no dysarthria Psychiatric: A+Ox3, euthymic affect Lymphatic: no cervical or axillary lymphadenopathy Results & Data Vital Signs (Past 12 Hours) Vital Signs Temp Pulse Pulse Resp BP BP Pulse Ox 08/24/18 15:30 37 C 112 H 95 H 20 137/81 122/82 93 08/24/18 15:00 113 H 19 137/72 95 08/24/18 14:52 117 H 24 146/79 H 95 08/24/18 14:31 116 H 26 H 129/77 95 08/24/18 14:30 117 H 26 H 96 08/24/18 14:00 114 H 15 156/82 H 92 08/24/18 13:33 118 H 19 140/97 100 08/24/18 13:32 119 H 26 H 97 08/24/18 13:16 119 H 100 08/24/18 13:00 114 H 100 08/24/18 12:56 37.0 C 114 H 18 157/108 H 100 08/24/18 12:54 114 H 14 08/24/18 12:49 115 H 12 157/108 H 90 Laboratory Results Laboratory Results - last 24 hr 08/25/18 08/25/18 08/25/18 07:00 07:00 07:32 WBC 11.54 H RBC 4.58 L Hgb 12.8 L Hct 38.1 L MCV 83.2 MCH 27.9 MCHC 33.6 RDW Std Deviation 48.9 H RDW Coeff of Joey 16.3 H Plt Count 187 MPV 8.5 Immature Gran % (Auto) 0.3 Neut % (Auto) 64.5 Lymph % (Auto) 27.0 [place] % (Auto) 7.5 Eos % (Auto) 0.6 Baso % (Auto) 0.1 Immature Gran # (Auto) 0.03 H Neut # (Auto) 7.44 H Lymph # (Auto) 3.12 [place] # (Auto) 0.87 H Eos # (Auto) 0.07 Baso # (Auto) 0.01 Sodium 137 Potassium 4.2 Chloride 105 Carbon Dioxide 25 Anion Gap 7.0 BUN 9 Creatinine 1.06 Est Cr Clr Drug Dosing 86.9 Est GFR ( Amer) 88.0 Est GFR (Non-Af Amer) 75.9 BUN/Creatinine Ratio 8.0 L Glucose 81 POC Glucose 71 Calcium 9.0 08/25/18 08/25/18 08/25/18 11:45 16:42 16:43 WBC RBC Hgb Hct MCV MCH MCHC RDW Std Deviation RDW Coeff of Joey Plt Count MPV Immature Gran % (Auto) Neut % (Auto) Lymph % (Auto) [place] % (Auto) Eos % (Auto) Baso % (Auto) Immature Gran # (Auto) Neut # (Auto) Lymph # (Auto) [place] # (Auto) Eos # (Auto) Baso # (Auto) Sodium Potassium Chloride Carbon Dioxide Anion Gap BUN Creatinine Est Cr Clr Drug Dosing Est GFR ( Amer) Est GFR (Non-Af Amer) BUN/Creatinine Ratio Glucose POC Glucose 113 H 43 L* 58 L* Calcium 08/25/18 08/25/18 08/25/18 17:10 17:13 20:24 WBC RBC Hgb Hct MCV MCH MCHC RDW Std Deviation RDW Coeff of Joey Plt Count MPV Immature Gran % (Auto) Neut % (Auto) Lymph % (Auto) [place] % (Auto) Eos % (Auto) Baso % (Auto) Immature Gran # (Auto) Neut # (Auto) Lymph # (Auto) [place] # (Auto) Eos # (Auto) Baso # (Auto) Sodium Potassium Chloride Carbon Dioxide Anion Gap BUN Creatinine Est Cr Clr Drug Dosing Est GFR ( Amer) Est GFR (Non-Af Amer) BUN/Creatinine Ratio Glucose POC Glucose 51 L* 77 73 Calcium [phone] Report Patient: LOU COLON Date: 08/24/18 MR#: [id number]: [address] Acct ID:[id number]: Date: [address] Zip: [place] [address] Age: 58Location: ED Sex: M Room/Bed: Att Phy: Diagnosis: hypoglycemia Anabel Phy: Yohannes Carrillo, MDService Date: 08/24/18 Fam Phy: Interpreting Phy: Jose Erwin Admit Phy: Ordering Phy: Oliver Aly M.D. cc: ~ XR chest 1V portable HISTORY: 58 years-old Male weakness acute weakness COMPARISON: Chest radiograph 06/08/2018 TECHNIQUE: Portable AP view of the chest FINDINGS: The cardiac silhouette is normal in size and unchanged. Prominence of the thoracic aortic arch. Tortuosity of the descending thoracic aorta. No pneumothorax, pleural effusion or overt pulmonary edema. Airspace opacities of the right upper lobe abutting the minor fissure are noted. Degenerative changes of the shoulders and spine. IMPRESSION: Alveolar opacities of the right upper lobe are suggestive of pneumonia. Follow-up imaging after treatment course is recommended to document resolution. Medications Administered Current Inpatient Medications Acetaminophen (Tylenol) 650 mg PO Q4H PRN PRN Reason: pain/fever Stop: 09/23/18 16:16 Albuterol (Ventolin Hfa) 2 puffs INH QID PRN PRN Reason: Shortness Of Breath Stop: 09/23/18 16:16 Aspirin (Ecotrin Ectab) 81 mg PO DAILY [facility] Stop: 09/24/18 08:59 Last Admin: 08/25/18 07:46 Dose: 81 mg Documented by: Azithromycin (Zithromax) 500 mg PO QAM [facility] Stop: 08/31/18 08:59 Last Admin: 08/25/18 07:45 Dose: 500 mg Documented by: Benztropine Mesylate (Cogentin) 1 mg PO DAILY [facility] Stop: 09/24/18 08:59 Last Admin: 08/25/18 07:46 Dose: 1 mg Documented by: Bupropion HCl (Wellbutrin-Sr) 150 mg PO BID [facility] Stop: 09/23/18 20:59 Last Admin: 08/25/18 21:03 Dose: 150 mg Documented by: Buspirone HCl (Buspar) 30 mg PO BID [facility] Stop: 09/23/18 20:59 Last Admin: 08/25/18 21:01 Dose: 30 mg Documented by: Clonazepam (Klonopin) 1 mg PO TID PRN PRN Reason: Anxiety Stop: 09/23/18 16:16 Dextrose (Dextrose 50%) 25 - 50 ml IV UD PRN; Protocol PRN Reason: Hypoglycemia Protocol Stop: 09/24/18 16:59 Divalproex Sodium (Depakote Delay Release) 1,000 mg PO QAM [facility] Stop: 09/24/18 08:59 Last Admin: 08/25/18 07:45 Dose: 1,000 mg Documented by: Divalproex Sodium (Depakote Delay Release) 1,500 mg PO HS [facility] Stop: 09/23/18 20:59 Last Admin: 08/25/18 21:02 Dose: 1,500 mg Documented by: Enoxaparin Sodium (Lovenox) 40 mg SQ Q24H [facility] Stop: 09/23/18 20:59 Last Admin: 08/25/18 21:03 Dose: 40 mg Documented by: Fluticasone Propionate (Flonase) 1 sprays NA DAILY [facility] Stop: 09/24/18 08:59 Last Admin: 08/25/18 07:48 Dose: 1 sprays Documented by: [facility]sem[facility] (Lasix) [facility] Stop: 09/25/18 08:59 Glucagon (Glucagen) 1 mg IM UD PRN; Protocol PRN Reason: Hypoglycemia Protocol Stop: 09/24/18 16:59 Glucose (Glucose 40%) 15 - 30 gm PO UD PRN; Protocol PRN Reason: Hypoglycemia Protocol Stop: 09/24/18 16:59 Glucose (Dex4 Glucose) 4 - 8 tabs PO UD PRN; Protocol PRN Reason: Hypoglycemia Protocol Stop: 09/24/18 16:59 Ceftriaxone Sodium 2,000 mg/ (Dextrose) 70 mls @ 140 mls/hr IV Q24H [facility]; Protocol Stop: 08/31/18 15:59 Last Infusion: 08/25/18 16:44 Dose: Infused Documented by: Levothyroxine Sodium (Synthroid) 175 mcg PO DAILYBB [facility] Stop: 09/24/18 06:29 Last Admin: 08/25/18 06:20 Dose: 175 mcg Documented by: Loratadine (Claritin) 10 mg PO DAILY [facility] Stop: 09/24/18 08:59 Last Admin: 08/25/18 07:45 Dose: 10 mg Documented by: Miscellaneous (Order Awaiting Action) 1 ea N/A QS [facility] Stop: 09/24/18 00:00 Last Admin: 08/25/18 15:48 Dose: Not Given Documented by: Miscellaneous (Carbohydrates For Hypoglycemia) 15 - 30 gm PO UD PRN PRN Reason: Hypoglycemia Treatment Stop: 09/24/18 16:59 Last Admin: 08/25/18 16:51 Dose: 30 gm Documented by: Montelukast Sodium (Singulair) 10 mg PO PM [facility] Stop: 09/23/18 20:59 Last Admin: 08/25/18 21:03 Dose: 10 mg Documented by: Ondansetron HCl (Zofran) 4 mg IV Q6H PRN PRN Reason: Nausea Stop: 09/23/18 16:16 Pantoprazole Sodium (Protonix) 40 mg PO DAILYBB [facility] Stop: 09/24/18 06:29 Last Admin: 08/25/18 06:20 Dose: 40 mg Documented by: Polyethylene Glycol (Miralax Powder Packet) 17 gm PO BID [facility] Stop: 09/24/18 20:59 Last Admin: 08/25/18 21:03 Dose: 17 gm Documented by: Potassium Chloride (Klor-Con M20) 40 meq PO DAILY [facility] Stop: 09/24/18 08:59 Last Admin: 08/25/18 07:48 Dose: 40 meq Documented by: Pravastatin Sodium (Pravachol) 20 mg PO HS [facility] Stop: 09/23/18 20:59 Last Admin: 08/25/18 21:03 Dose: 20 mg Documented by: Ranitidine HCl (Zantac) 150 mg PO BID [facility] Stop: 09/23/18 20:59 Last Admin: 08/25/18 21:02 Dose: 150 mg Documented by: Senna/Docusate Sodium (Senokot S) 1 tab PO HS [facility] Stop: 09/23/18 20:59 Last Admin: 08/25/18 21:03 Dose: 1 tab Documented by: Ziprasidone (Geodon) 120 mg PO BID [facility] Stop: 09/23/18 20:59 Last Admin: 08/25/18 21:01 Dose: 120 mg Documented by: Code Status & VTE Plan Code Status full code VTE Prophylaxis Plan VTE Prophylaxis will be ordered: Yes (1) Sepsis Sepsis type: sepsis due to unspecified organism Qualified Code(s): A41.9 - Sepsis, unspecified organism (2) Right upper lobe pneumonia Pneumonia type: due to unspecified organism Qualified Code(s): J18.1 - Lobar pneumonia, unspecified organism
[2018-08-24] MEDS: BusPIRone 15 MG TAB PO SCH (21:19)
[2018-08-24] MEDS: BuPROPion SR 150 MG TABCR PO SCH (21:19)
[2018-08-24] MEDS: DIVALPROEX DELAY RELEASE 500 MG TAB PO SCH (21:21)
[2018-08-24] MEDS: MONTELUKAST SODIUM 10 MG TABLET PO SCH (21:21)
[2018-08-24] MEDS: PRAVASTATIN SOD 20 MG TAB PO SCH (21:22)
[2018-08-24] MEDS: DOCUSATE SODIUM/SENNA 50/8.6MG TAB PO SCH (21:22)
[2018-08-24] MEDS: ZIPRASIDONE HCL 20 MG CAP PO SCH (21:33)
[2018-08-24] MEDS: ENOXAPARIN INJ 40 MG/0.4 ML SYR SQ SCH (21:33)
[2018-08-25] MEDS: PANTOprazole 40 MG TAB PO SCH (06:20)
[2018-08-25] MEDS: LEVOTHYROXINE SODIUM 175 MCG TABLET PO SCH (06:20)
[2018-08-25 07:20] LABS: Basophils # (auto) 0.01 K/uL (0-0.2); Basophils % (auto) 0.1 %; Eosinophils # (auto) 0.07 K/uL (0-0.5); Eosinophils % (auto) 0.6 %; Hematocrit (blood only) 38.1 % (42-52); Hemoglobin 12.8 g/dL (14.0-18.0); Immature Granulocytes # (auto) 0.03 K/uL (0.00-0.02); Immature Granulocytes % (auto) 0.3 %; Lymphocytes # (auto) 3.12 K/uL (1.2-3.4); Mean Corpuscular Hgb Conc 33.6 g/dL (32-36); Mean Corpuscular Volume 83.2 fL (80-100); Mean Platelet Volume 8.5 fL (7.4-10.4); Monocytes # (auto) 0.87 K/uL (0.11-0.59); Monocytes % (auto) 7.5 %; Neutrophils # (auto) 7.44 K/uL (1.4-6.5); Neutrophils % (auto) 64.5 %; Platelet Count 187 K/uL (130-400); RDW Coefficient of Variation 16.3 % (11.5-14.5); RDW Standard Deviation 48.9 fL (36.4-46.3); Red Blood Count 4.58 M/uL (4.7-6.1); White Blood Count 11.54 K/uL (4.8-10.8)
[2018-08-25] MEDS: AZITHROMYCIN 250 MG TAB PO SCH (07:45)
[2018-08-25] MEDS: DIVALPROEX DELAY RELEASE 500 MG TAB PO SCH ×2 (07:45→21:02)
[2018-08-25] MEDS: LORATADINE 10 MG TAB PO SCH (07:45)
[2018-08-25] MEDS: BusPIRone 15 MG TAB PO SCH ×2 (07:46→21:01)
[2018-08-25] MEDS: BENZTROPINE MESYLATE 1 MG TAB PO SCH (07:46)
[2018-08-25] MEDS: ASPIRIN 81 MG ECTAB PO SCH (07:46)
[2018-08-25] MEDS: BuPROPion SR 150 MG TABCR PO SCH ×2 (07:46→21:03)
[2018-08-25] MEDS: ZIPRASIDONE HCL 20 MG CAP PO SCH ×2 (07:47→21:01)
[2018-08-25] MEDS: FLUTICASONE PROPIONATE NA SPR 16 GM BTL SCH (07:48)
[2018-08-25] MEDS: POTASSIUM CHLORIDE 20 MEQ TABCR PO SCH (07:48)
[2018-08-25 07:53] LABS: Creatinine Clr Calc Pharmacy 86.9 ml/min; Est GFR (Non-African American) 75.9; Potassium 4.2 mmol/L (3.5-5.1)
[2018-08-25] MEDS ORDERED: LOXAPINE SUCCINATE 100 MG PO SCH (09:00)
--- NOTE | 2018-08-25 14:50 | Medical Student Progress Note ---
Date of Service August 25, 2018 Assessment & Plan (1) Right upper lobe pneumonia: The patient was tachycardic and had a leukocytosis on admission, as well as a several day history of productive cough with sputum suggestive of pneumonia. Chest x-ray was also supportive. 1. Continue with antibiotics for 5-7 days. He is currently on ceftriaxone and azithromycin. Azithromycin can be continued as an outpatient PO, ceftriaxone can be switched to cefdinir. Pneumonia type: due to unspecified organism Qualified Code(s): J18.1 - Lobar pneumonia, unspecified organism (2) Hypoglycemia: The hypoglycemia was likely due to poor PO intake due to illness; the patient lives alone and relies on caregivers. Sugars have returned to baseline since admission. He has good PO intake at present and is no longer requiring IV fluids. 1. Continue to hold oral agents while in the hospital, to be resumed as an outpatient. Subjective Patient states that he is "feeling 100% better" today. He has been eating well and drinking water and is no longer requiring IV fluids. He states that he is using his bedside spirometer consistently and feels like his coughing has decreased in frequency. He is hoping to go home tomorrow morning. Physical Exam Vital Signs (Past 24 Hours): Last Vital Signs Temp 36.7 C 08/25/18 07:31 Pulse 82 08/25/18 07:31 Resp 17 08/25/18 07:31 BP 117/77 08/25/18 07:31 Pulse Ox 92 08/25/18 07:31 Constitutional: Well-appearing male who appears his stated age sitting up comfortably in bed. Respiratory: Quiet crackles on the right side, left side clear to auscultation. Expiratory wheeze. Cardiovascular: Regular rate and rhythm with no murmurs, rubs, or gallops. Psychiatric: Thought process is circumferential. Speech pressured. Results & Data Laboratory Results WBCs trending down from 16.9 to 11.5 CXR suggestive of right upper lobe pneumonia.
[2018-08-25] MEDS ORDERED: cefTRIAXone SODIUM 2,000 MG in DEXTROSE 5% 50 ML IV SCH (16:00)
[2018-08-25] MEDS: POLYETHYLENE (MIRALAX) 17 GM PACK PO SCH ×2 (16:12→21:03)
[2018-08-25] MEDS ORDERED: Nursing to Pharmacy Communication ONE (16:50)
[2018-08-25] MEDS ORDERED: CARBOHYDRATES FOR HYPOGLYCEMIA PO PRN (17:00)
[2018-08-25] MEDS ORDERED: GLUCOSE 40% GEL 15 GM TUBE PO PRN (17:00)
[2018-08-25] MEDS ORDERED: DEXTROSE 50% 50 ML SYRINGE IV PRN (17:00)
[2018-08-25] MEDS ORDERED: GLUCOSE 10 TABS/TUBE PO PRN (17:00)
[2018-08-25] MEDS ORDERED: GLUCAGON FOR INJ 1 MG VIAL IM PRN (17:00)
[2018-08-25] MEDS: MONTELUKAST SODIUM 10 MG TABLET PO SCH (21:03)
[2018-08-25] MEDS: PRAVASTATIN SOD 20 MG TAB PO SCH (21:03)
[2018-08-25] MEDS: ENOXAPARIN INJ 40 MG/0.4 ML SYR SQ SCH (21:03)
[2018-08-25] MEDS: DOCUSATE SODIUM/SENNA 50/8.6MG TAB PO SCH (21:03)
--- NOTE | 2018-08-25 21:49 | Hospitalist Progress Note ---
Date of Service August 25, 2018 Assessment & Plan (1) Right upper lobe pneumonia: continue Rocephin and Zithromax responding quite well likely change to Cefdinir and Zithromax tomorrow and d/c home tomorrow had been sick for several days, coughing, productive of sputum, says he never looks at what color has mild leukocytosis and tachycardia on admission heart rate down to normal, WBC down to 11k CXR shows right sided pneumonia plan to d/c home tomorrow (2) Sepsis: qualifies with pneumonia as well as leukocytosis and tachycardia on admission no signs of organ failure, no hypotension treat with IV fluids and Antibiotics follow up cultures (3) Hypoglycemia: likely due to poor oral intake he claims his A1c was 5.9 hold oral agents will NOT use diabetic diet as he came in with hypoglycemia, prone to this sugars stable, no hypoglycemia while here (4) CKD (chronic kidney disease) stage 2, GFR 60-89 ml/min: Cr is stable, electrolytes stable (5) Tachycardia: due to sepsis resolved with IV fluids (6) Bipolar 1 disorder: continue home regimen mood is stable currently Plan: d/c to home tomorrow morning, wants to be d/c by 10am Subjective patient feeling significantly better today no further chills or sweats, breathing much better, coughing less eating well says he wants to get a shower, told him he could but he wants to wait until he is home reviewed labs, WBC down to 11k, his Cr and electrolytes are stable Review of Systems Review of Systems: All systems reviewed & are unremarkable except as noted in HPI & below Constitutional: no fever, no chills, no sweats, no fatigue and no weakness Respiratory: + cough and + sputum production; no dyspnea, no dyspnea on exertion, no pain on inspiration and no wheezing Cardiovascular: no chest pain Gastrointestinal: no abdominal pain, no nausea, no vomiting, no constipation and no diarrhea/loose stools Physical Exam Constitutional: WD/WN, vitals as above Eyes: PERRL, conjunctivae normal, anicteric sclerae ENMT: external ear and nose normal, oropharynx normal Neck: trachea midline, no thyromegaly Respiratory: normal respiratory effort and normal percussion; no respiratory distress, no labored breathing and does not use accessory muscles Ausc ultation: + crackles (right side); no rales, no rhonchi and no wheezes Cardiovascular: Rate/Rhythm: regular rate and regular rhythm Heart Sounds: normal S1 and normal S2; no murmur and no cardiac rub Vessels: normal peripheral pulses Extremities: normal capillary refill and + pedal edema Gastrointestinal (Abdomen): normal bowel sounds, soft, nontender, no hepatosplenomegaly Musculoskeletal: no cyanosis or clubbing, extremities motor strength 5/5 Skin: no rashes, warm and dry Neurologic: patellar DTR's 2+ bilat, sensation intact and PERRL, EOMI, accommodation nl, no face palsy, no dysarthria Psychiatric: A+Ox3, euthymic affect Lymphatic: no cervical or axillary lymphadenopathy Results & Data Vital Signs (Past 12 Hours) Vital Signs Temp Pulse Resp BP Pulse Ox 08/25/18 15:58 36.3 C L 77 20 131/87 100 Laboratory Results Laboratory Results - last 24 hr 08/25/18 08/25/18 08/25/18 07:00 07:00 07:32 WBC 11.54 H RBC 4.58 L Hgb 12.8 L Hct 38.1 L MCV 83.2 MCH 27.9 MCHC 33.6 RDW Std Deviation 48.9 H RDW Coeff of Joey 16.3 H Plt Count 187 MPV 8.5 Immature Gran % (Auto) 0.3 Neut % (Auto) 64.5 Lymph % (Auto) 27.0 Upson % (Auto) 7.5 Eos % (Auto) 0.6 Baso % (Auto) 0.1 Immature Gran # (Auto) 0.03 H Neut # (Auto) 7.44 H Lymph # (Auto) 3.12 Upson # (Auto) 0.87 H Eos # (Auto) 0.07 Baso # (Auto) 0.01 Sodium 137 Potassium 4.2 Chloride 105 Carbon Dioxide 25 Anion Gap 7.0 BUN 9 Creatinine 1.06 Est Cr Clr Drug Dosing 86.9 Est GFR ( Amer) 88.0 Est GFR (Non-Af Amer) 75.9 BUN/Creatinine Ratio 8.0 L Glucose 81 POC Glucose 71 Calcium 9.0 08/25/18 08/25/18 08/25/18 11:45 16:42 16:43 WBC RBC Hgb Hct MCV MCH MCHC RDW Std Deviation RDW Coeff of Joey Plt Count MPV Immature Gran % (Auto) Neut % (Auto) Lymph % (Auto) Upson % (Auto) Eos % (Auto) Baso % (Auto) Immature Gran # (Auto) Neut # (Auto) Lymph # (Auto) Upson # (Auto) Eos # (Auto) Baso # (Auto) Sodium Potassium Chloride Carbon Dioxide Anion Gap BUN Creatinine Est Cr Clr Drug Dosing Est GFR ( Amer) Est GFR (Non-Af Amer) BUN/Creatinine Ratio Glucose POC Glucose 113 H 43 L* 58 L* Calcium 08/25/18 08/25/18 08/25/18 17:10 17:13 20:24 WBC RBC Hgb Hct MCV MCH MCHC RDW Std Deviation RDW Coeff of Joey Plt Count MPV Immature Gran % (Auto) Neut % (Auto) Lymph % (Auto) Upson % (Auto) Eos % (Auto) Baso % (Auto) Immature Gran # (Auto) Neut # (Auto) Lymph # (Auto) Upson # (Auto) Eos # (Auto) Baso # (Auto) Sodium Potassium Chloride Carbon Dioxide Anion Gap BUN Creatinine Est Cr Clr Drug Dosing Est GFR ( Amer) Est GFR (Non-Af Amer) BUN/Creatinine Ratio Glucose POC Glucose 51 L* 77 73 Calcium Medications Administered Current Inpatient Medications Acetaminophen (Tylenol) 650 mg PO Q4H PRN PRN Reason: pain/fever Stop: 09/23/18 16:16 Albuterol (Ventolin Hfa) 2 puffs INH QID PRN PRN Reason: Shortness Of Breath Stop: 09/23/18 16:16 Aspirin (Ecotrin Ectab) 81 mg PO DAILY [facility] Stop: 09/24/18 08:59 Last Admin: 08/25/18 07:46 Dose: 81 mg Documented by: Azithromycin (Zithromax) 500 mg PO QAM [facility] Stop: 08/31/18 08:59 Last Admin: 08/25/18 07:45 Dose: 500 mg Documented by: Benztropine Mesylate (Cogentin) 1 mg PO DAILY [facility] Stop: 09/24/18 08:59 Last Admin: 08/25/18 07:46 Dose: 1 mg Documented by: Bupropion HCl (Wellbutrin-Sr) 150 mg PO BID [facility] Stop: 09/23/18 20:59 Last Admin: 08/25/18 21:03 Dose: 150 mg Documented by: Buspirone HCl (Buspar) 30 mg PO BID [facility] Stop: 09/23/18 20:59 Last Admin: 08/25/18 21:01 Dose: 30 mg Documented by: Clonazepam (Klonopin) 1 mg PO TID PRN PRN Reason: Anxiety Stop: 09/23/18 16:16 Dextrose (Dextrose 50%) 25 - 50 ml IV UD PRN; Protocol PRN Reason: Hypoglycemia Protocol Stop: 09/24/18 16:59 Divalproex Sodium (Depakote Delay Release) 1,000 mg PO QAM [facility] Stop: 09/24/18 08:59 Last Admin: 08/25/18 07:45 Dose: 1,000 mg Documented by: Divalproex Sodium (Depakote Delay Release) 1,500 mg PO HS [facility] Stop: 09/23/18 20:59 Last Admin: 08/25/18 21:02 Dose: 1,500 mg Documented by: Enoxaparin Sodium (Lovenox) 40 mg SQ Q24H [facility] Stop: 09/23/18 20:59 Last Admin: 08/25/18 21:03 Dose: 40 mg Documented by: Fluticasone Propionate (Flonase) 1 sprays NA DAILY [facility] Stop: 09/24/18 08:59 Last Admin: 08/25/18 07:48 Dose: 1 sprays Documented by: [facility]urosemide (Lasix) [facility] [place] Stop: 09/25/18 08:59 Glucagon (Glucagen) 1 mg IM UD PRN; Protocol PRN Reason: Hypoglycemia Protocol Stop: 09/24/18 16:59 Glucose (Glucose 40%) 15 - 30 gm PO UD PRN; Protocol PRN Reason: Hypoglycemia Protocol Stop: 09/24/18 16:59 Glucose (Dex4 Glucose) 4 - 8 tabs PO UD PRN; Protocol PRN Reason: Hypoglycemia Protocol Stop: 09/24/18 16:59 Ceftriaxone Sodium 2,000 mg/ (Dextrose) 70 mls @ 140 mls/hr IV Q24H [facility]; Protocol Stop: 08/31/18 15:59 Last Infusion: 08/25/18 16:44 Dose: Infused Documented by: Levothyroxine Sodium (Synthroid) 175 mcg PO DAILYBB [facility] Stop: 09/24/18 06:29 Last Admin: 08/25/18 06:20 Dose: 175 mcg Documented by: Loratadine (Claritin) 10 mg PO DAILY [facility] Stop: 09/24/18 08:59 Last Admin: 08/25/18 07:45 Dose: 10 mg Documented by: Miscellaneous (Order Awaiting Action) 1 ea N/A QS [facility] Stop: 09/24/18 00:00 Last Admin: 08/25/18 15:48 Dose: Not Given Documented by: Miscellaneous (Carbohydrates For Hypoglycemia) 15 - 30 gm PO UD PRN PRN Reason: Hypoglycemia Treatment Stop: 09/24/18 16:59 Last Admin: 08/25/18 16:51 Dose: 30 gm Documented by: Montelukast Sodium (Singulair) 10 mg PO PM [facility] Stop: 09/23/18 20:59 Last Admin: 08/25/18 21:03 Dose: 10 mg Documented by: Ondansetron HCl (Zofran) 4 mg IV Q6H PRN PRN Reason: Nausea Stop: 09/23/18 16:16 Pantoprazole Sodium (Protonix) [facility] Stop: 09/24/18 06:29 Last Admin: 08/25/18 06:20 Dose: 40 mg Documented by: Polyethylene Glycol (Miralax Powder Packet) 17 gm PO BID [facility] Stop: 09/24/18 20:59 Last Admin: 08/25/18 21:03 Dose: 17 gm Documented by: Potassium Chloride (Klor-Con M20) 40 meq PO DAILY [facility] Stop: 09/24/18 08:59 Last Admin: 08/25/18 07:48 Dose: 40 meq Documented by: Pravastatin Sodium (Pravachol) 20 mg PO [facility] Stop: 09/23/18 20:59 Last Admin: 08/25/18 21:03 Dose: 20 mg Documented by: Ranitidine HCl (Zantac) 150 mg PO BID [facility] Stop: 09/23/18 20:59 Last Admin: 08/25/18 21:02 Dose: 150 mg Documented by: Senna/Docusate Sodium (Senokot S) 1 tab PO HS [facility] Stop: 09/23/18 20:59 Last Admin: 08/25/18 21:03 Dose: 1 tab Documented by: Ziprasidone (Geodon) 120 mg PO BID [facility] Stop: 09/23/18 20:59 Last Admin: 08/25/18 21:01 Dose: 120 mg Documented by: (1) Right upper lobe pneumonia Pneumonia type: due to unspecified organism Qualified Code(s): J18.1 - Lobar pneumonia, unspecified organism (2) Sepsis Sepsis type: sepsis due to unspecified organism Qualified Code(s): A41.9 - Sepsis, unspecified organism
--- OUTSIDE RECORDS SUMMARY | 2018-08-25 22:43 | External Medical Summary | Continuity of Care Document ---
:1960 Author Name Tomeka Posada, Provider Address Unavailable Unavailable , Care Team Providers Name Role Phone Cruz Tafoya M.D. Unavailable [email or web address] Yohannes Carrillo M.D. Unavailable [email or web address] Brayan TURNER Unavailable [email or web address] Rosalinda GARCIA Unavailable [email or web address] PRO Posada, Eleanor Unavailable Unavailable Unavailable Unavailable Unavailable Problems History of Community acquired pneumonia (486) (J18.9) Status: Resolved Community acquired pneumonia (486) (J18.9) Type 2 diabetes mellitus (250.00) (E11.9) Hypercholesterolemia (272.0) (E78.00) Hypothyroidism (244.9) (E03.9) Lymphedema of lower extremity (457.1) (I89.0) GERD without esophagitis (530.81) (K21.9) Bilateral edema of lower extremity (782.3) (R60.0) Sciatica (724.3) (M54.30) Venous insufficiency (chronic) (peripheral) (459.81) (I87.2) Type 2 diabetes mellitus with hypoglycemia (250.80) (E11.649 ) Impotence, organic (607.84) (N52.9) Urinary incontinence (788.30) (R32) Nocturia more than twice per night (788.43) (R35.1) Knee pain (719.46) (M25.569) Bipolar I disorder, single manic episode (296.00) (F30.9) Left knee pain (719.46) (M25.562) 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) Preoperative cardiovascular examination (V72.81) (Z01.810) Chronic constipation (564.00) (K59.09) Basal cell carcinoma of face (173.31) (C44.310) Cellulitis (682.9) (L03.90) Colon polyp (211.3) (K63.5) Hyponatremia (276.1) (E87.1) History of pneumonia (V12.61) (Z87.01) Acute bronchitis (466.0) (J20.9) Nasal congestion (478.19) (R09.81) Synovial cyst of popliteal space (727.51) (M71.20) Rash (782.1) (R21) Erythema neonatorum (778.8) (P83.1) Hypomagnesemia (275.2) (E83.42) Abdominal mass, LUQ (left upper quadrant) (789.32) (R19.02) History of hypoglycemia (V12.29) (Z86.39) Status: Resolved Polyp Allergic rhinitis (477.9) (J30.9) Mass of abdomen (789.30) (R19.00) Lumbosacral radiculopathy at L5 (724.4) (M54.17) Asthma (493.90) (J45.909) Elevated WBC count (288.60) (D72.829) Hypertension (401.9) (I10) Pneumonia (486) (J18.9) Glaucoma (365.9) (H40.9) BPH with obstruction/lower urinary tract symptoms (600.01) ( N40.1) Erectile dysfunction (607.84) (N52.9) Keratosis (701.1) (L57.0) Osteoarthritis of knee (715.36) (M17.10) Incontinence (788.30) (R32) Allergies and Adverse Reactions No Known Drug Allergies (Allergy) Medications Fluticasone Propionate 50 MCG/ACT Nasal Suspension; USE 1 TO 2 SPRAYS IN EACH NOSTRIL ONCE DAILY. JOHNNY Schmidt Start: 26-Mar-2016 Quantity: 3 16 GM Bottle Refills: 3 Ziprasidone HCl - 80 MG Oral Capsule; TAKE 1.5 CAPSULES TWIC E DAILY. Start: 26-Aug-2012 Refills: 0 metFORMIN HCl - 850 MG Oral Tablet; TAKE 1 TABLET at dinner as needed (otherwise two 500mg daily ) Albino Carrillo Start: 28-Jul-2018 Quantity: 90 Refills: 0 Loxapine Succinate 50 MG Oral Capsule; TAKE 2 CAPSULE ONCE D AILY. Start: 26-Aug-2012 Refills: 0 Pravastatin Sodium 20 MG Oral Tablet; TAKE 1 TABLET DA SERGIO AT BEDTIME. Albino Carrillo Start: 26-Aug-2012 Quantity: 90 Refills: 3 raNITIdine HCl - 150 MG Oral Tablet; Take 1 tablet twi ce daily Albino Carrillo Start: 18-Feb-2018 Quantity: 180 Refills: 1 Montelukast Sodium 10 MG Oral Tablet; TAKE 1 TABLET IN THE EVENING Albino Carrillo Start: 04-Apr-2018 Quantity: 90 Refills: 1 Furosemide 40 MG Oral Tablet; Take 1 tablet daily Albino Carrillo Start: 04-Sep-2017 Quantity: 90 Refills: 3 Aspirin EC 81 MG Oral Tablet Delayed Release; TAKE 1 T ABLET EVERY DAY Albino Carrillo Start: 26-Aug-2012 Quantity: 90 Refills: 3 buPROPion HCl - 100 MG Oral Tablet; TAKE 1.5 TABLET Twice da sergio Start: 22-Dec-2015 Quantity: 90 Refills: 5 Augmentin 875-125 MG TABS; Take 1 tablet twice daily Start: 11-Jun-2018 Refills: 0 Doxycycline Hyclate 100 MG Oral Tablet; TAKE 1 TABLET EVERY 12 HOURS DAILY. Start: 11-Jun-2018 Quantity: 1 20 Tablet Bottle Refills: 0 Lisinopril 10 MG Oral Tablet; TAKE 1 TABLET BY MOUTH E VERY DAY Albino Carrillo Start: 05-Feb-2018 Quantity: 90 Refills: 2 Ventolin HFA 108 (90 Base) MCG/ACT Inhal ation Aerosol Solution; INHALE 2 PUFFS 4 times daily JOHNNY Schmidt Start: 26-Aug-2012 Quantity: 1 18 GM Inhaler Refills: 5 Accu-Chek Guide In Vitro Strip; USE ONE STRIP TO CHECK GLUCOSE 4 TIMES DAILY Albino Carrillo Start: 28-Oct-2017 Quantity: 3 100 Strip Box Refills: 3 Shingrix 50 MCG Intramuscular Suspension Reconstituted; INJECT 0.5 ML Intramuscular RADHA Tellez Start: 03-Jul-2018 Quantity: 0.5 Refills: 0 busPIRone HCl - 30 MG Oral Tablet; TAKE 1 TABLET TWICE DAILY . Start: 26-Aug-2012 Refills: 0 Omeprazole 20 MG Oral Capsule Delayed Re lease; TAKE ONE CAPSULE BY MOUTH 30 MINUTES BEFORE BREAKFAST EVERY DAY Albino Carrillo Start: 17-Apr-2018 Quantity: 90 Refills: 1 Benztropine Mesylate 1 MG Oral Tablet; TAKE 2 TABLETS DAILY. Start: 16-May-2017 Refills: 0 Accu-Chek FastClix Lancets; TEST 4 TO 6 TIMES DAILY Maria Del Rosario Carrillo Start: 28-Oct-2017 Quantity: 3 102 Unit Box Refills: 3 Accu-Chek Charleen Plus In Vitro Strip; TEST 4 TIMES DAILY. Albino Carrillo Start: 01-Mar-2014 Quantity: 100 Refills: 5 Accu-Chek Charleen Plus w/Device Kit; USE A S DIRECTED. ONE TOUCH ULTRA TWO METER test once a daydx 250.6 Albino Carrillo Start: 01-Mar-2014 Quantity: 1 Refills: 0 Levothyroxine Sodium 175 MCG Oral Tablet; TAKE 1 TABLE T EVERY DAY Albino Carrillo Start: 01-Dec-2012 Quantity: 90 Refills: 3 Senna Plus 8.6-50 MG Oral Tablet; TAKE 1 OR 2 TABLETS DAILY TO PREVENT CONSTIPATION. Albino Carrillo Start: 31-Oct-2012 Quantity: 60 Refills: 1 Loratadine 10 MG Oral Tablet; TAKE 1 TABLET BY MOUTH E VERY DAY Albino Carrillo Start: 16-Sep-2017 Quantity: 90 Refills: 3 Divalproex Sodium ER 500 MG Oral Tablet Extended Release 24 Hour; TAKE 3 TABLET Bedtime Start: 26-Aug-2012 Refills: 0 Depakote ER 500 MG Oral Tablet Extended Release 24 Hour; DICK E 2 TABLETS DAILY. Start: 26-Aug-2012 Refills: 0 clonazePAM 1 MG Oral Tablet; TAKE 1 TABLET 3 TIMES DAILY NEEDED. Start: 26-Aug-2012 Refills: 0 Polyethylene Glycol 3350 Oral Powder; RI X 1 CAPFUL (17GM) IN 8 OZ OF WATER AND DRINK twice daily. HOLD FOR LOOSE STOOL. Albino Carrillo Start: Quantity: 527 Refills: 3 Klor-Con M20 20 MEQ Oral Tablet Extended Release; TAKE 2 TABLETS BY MOUTH EVERY DAY Albino Carrillo Start: 18-Aug-2018 Quantity: 180 Refills: 1 metFORMIN HCl - 500 MG Oral Tablet; TAKE 1 TABLET BY MOUTH TWICE A DAY WITH DINNER Albino Carrillo Start: 23-Jun-2018 Quantity: 180 Refills: 2 Procedures History of Knee Surgery Status: Complete d Immunizations Pneumococcal polysaccharide vaccine, 23 valent On: 2009 Influenza On: 03-Mar-2012 Influenza On: 11-Feb-2013 Influenza On: 10-Feb-2014 Influenza On: 04-Feb-2015 Influenza On: 01-Feb-2016 Flucelvax Quadrivalent 0.5 ML Intramuscular Suspension Prefilled Syringe On: 04-Mar-2018 Shingrix 50 MCG/0.5ML Intramuscular Suspension Reconstituted On: 04-Mar-2018 Family History Sister Family history of diabetes mellitus (V18.0) (Z83.3) Status: Active Unknown Family Member Family history of diabetes mellitus (V18.0) Status: Active Comments: Family History (Z83.3) Family history of hypertension (V17.49) Status: Active Comments: Family History (Z82.49) Mother Family history of hypertension (V17.49) (Z82.49) Status: Act jose miguel Social History - Smoking Status Never smoker Plan of Treatment Planned Encounters Appointment; Cruz Tafoya M.D. Start: 13-May-2019 14:30 Request Planned Observations Planned Goals not documented Results X-Ray Chest 1 View Portable (Pending) [facility] 24-Aug-2018 13:39 X-Ray Chest 1 VW Portable (CXR1P) [facility], [place] [phone] XRay Report Patient: LOU COLON Admit Date: MR#: [id number] Address1: [address] Acct ID:[id number] Addr ess2: Date: 02/14/[address] [place] [address] Zip: [place], [place] [address] Age: 58 Location: ED Sex: M Room/Bed: Att Phy: Diagnosis: hypoglycemia Anabel Phy: Yohannes Carrillo MD Service Date: 0 08/24/18 [facility] Phy: Interpreting Phy: Jose Rashid her Admit Phy: Ordering Phy: Oliver Aly M.D. c c: XR chest 1V portable HISTORY: 58 years-old Male weakness acute weakness COMPARISON: Chest radiograph 06/08/2018 TECHNIQUE: Portable AP view of the chest FINDINGS: The cardiac silhouette is n ormal in size and unchanged. Prominence of the thoracic aortic arch. Tortuosity of the descending thoracic aorta. No pneumothor ax, pleural effusion or overt pulmonary jose a. Airspace opacities of the right upper lo be abutting the minor fissure are noted. Degenerativechanges of the shoulders and spine. IMPRESSION: Alveolar opaciti es of the right upper lobe are suggestive of pneumonia. Follow-up imaging after treat ment course is recommended to document resolu tion. The above report was generate d using voice recognition software. It may contain grammatical, syntaxor spelling e rrors. Electronically signed by: Lesley Erwin M.D. 08/24/2018 1:40 PM Dictated: 08/24/18 1339 Transcribe d: 08/24/18 1339 Encounters Appointment; Nelda Schmidt CRNP 16-Jun-2018 11:30 Encounter Diagnosis: Problem not documented Appointment; Cruz Tafoya M.D. 13-May-2018 16:00 Encounter Diagnosis: Problem not documented Appointment; Yohannes Carrillo M.D. 05-May-2018 15:20 Encounter Diagnosis: Problem not documented Appointment; Yohannes Carrillo M.D. 26-Dec-2017 15:20 Encounter Diagnosis: Problem not documented Appointment; Cruz Tafoya M.D. 14-Nov-2017 16:20 Encounter Diagnosis: Problem not documented Appointment; Sveta Ramirez M.D. 12-Sep-2017 15:00 Encounter Diagnosis: Problem not documented Appointment; Nelda Schmidt CRNP 26-Aug-2017 13:30 Encounter Diagnosis: Problem not documented Appointment; Sveta Ramirez M.D. 07-Aug-2017 14:40 Encounter Diagnosis: Problem not documented Appointment; Yohannes Carrillo M.D. 12-Jul-2017 15:30 Encounter Diagnosis: Problem not documented Appointment; Cyndie Munguia PA-C 05-Jul-2017 14:45 Encounter Diagnosis: Problem not documented Appointment; Yohannes Carrillo M.D. 05-Jul-2017 12:40 Encounter Diagnosis: Problem not documented Appointment; Yohannes Carrillo M.D. 20-May-2017 14:40 Encounter Diagnosis: Problem not documented Appointment; Jocy Barker CRNP 19-Nov-2016 17:30 Encounter Diagnosis: Problem not documented Appointment; Adelaida Wing R.D. 19-Nov-2016 16:30 Encounter Diagnosis: Problem not documented Appointment; Nichol Bell PA-C 14-Nov-2016 15:30 Encounter Diagnosis: Problem not documented Appointment; Cruz Tafoya M.D. 13-May-2019 14:30 Encounter Diagnosis: Problem not documented
[2018-08-26] MEDS: PANTOprazole 40 MG TAB PO SCH (05:24)
[2018-08-26] MEDS: LEVOTHYROXINE SODIUM 175 MCG TABLET PO SCH (05:25)
[2018-08-26 06:43] LABS: Basophils # (auto) 0.01 K/uL (0-0.2); Basophils % (auto) 0.1 %; Eosinophils # (auto) 0.13 K/uL (0-0.5); Eosinophils % (auto) 1.7 %; Hematocrit (blood only) 37.8 % (42-52); Hemoglobin 12.6 g/dL (14.0-18.0); Immature Granulocytes # (auto) 0.02 K/uL (0.00-0.02); Immature Granulocytes % (auto) 0.3 %; Lymphocytes % (auto) 34.3 %; Mean Corpuscular Hgb Conc 33.3 g/dL (32-36); Mean Corpuscular Volume 82.2 fL (80-100); Mean Platelet Volume 8.6 fL (7.4-10.4); Monocytes # (auto) 0.83 K/uL (0.11-0.59); Monocytes % (auto) 10.9 %; Neutrophils % (auto) 52.7 %; Platelet Count 186 K/uL (130-400); RDW Coefficient of Variation 16.2 % (11.5-14.5); RDW Standard Deviation 48.3 fL (36.4-46.3); White Blood Count 7.59 K/uL (4.8-10.8)
[2018-08-26 07:19] LABS: BUN Creatinine Ratio 11.7 (10-20); Calcium 8.8 mg/dl (8.5-10.1); Est GFR (African American) 96.7; Est GFR (Non-African American) 83.5; Potassium 3.9 mmol/L (3.5-5.1)
--- NOTE | 2018-08-26 08:00 | Discharge Summary ---
Date of Service August 26, 2018 Admission HPI Per Admitting Provider 58 yo male with h/o bipolar disorder and schizophrenia presented to the ED after being found to be profoundly weak and short of breath in his apartment. Glucose was low in the 40's and he was brought to the ED via EMS. He reported that he had been feeling ill for about one week. He was experiencing shortness of breath on exertion and then some dyspnea at rest. He had a cough with occasional sputum production, he never looked at the color or if there was blood. He felt like his chest was congested and at times he was having a difficult time bringing up phlegm. His breathing got significantly worse the last two days prior to admission. His appetite was poor and he was drinking less fluids than normal for several days. He had a fever and chills and sweats at home. Nothing made his symptoms better, he only continued to ge worse. In the ED he was tachycardic in 110's and had a leukocytosis of 16k. He was afebrile but he was very diaphoretic and appeared pale. He was found to have right sided infiltrates on CXR. He was treated with ceftriaxone and zithromax and IV fluids in the ED. Admission was requested. Admission Exam Per Admitting Provider Constitutional: WD/WN, vitals as above Eyes: PERRL, conjunctivae normal, anicteric sclerae ENMT: external ear and nose normal, oropharynx normal Neck: trachea midline, no thyromegaly Respiratory: normal respiratory effort and normal percussion; no respiratory distress, no labored breathing and does not use accessory muscles Auscultation: + crackles (right side); no rales, no rhonchi and no wheezes Cardiovascular: Rate/Rhythm: regular rhythm and + tachycardic Heart Sounds: normal S1 and normal S2; no murmur and no cardiac rub Vessels: normal peripheral pulses Extremities: normal capillary refill and + pedal edema Gastrointestinal (Abdomen): normal bowel sounds, soft, nontender, no hepatosplenomegaly Musculoskeletal: no cyanosis or clubbing, extremities motor strength 5/5 Skin: no rashes, warm and dry Neurologic: patellar DTR's 2+ bilat, sensation intact and PERRL, EOMI, accommodation nl, no face palsy, no dysarthria Psychiatric: A+Ox3, euthymic affect Lymphatic: no cervical or axillary lymphadenopathy Principal Diagnosis Right middle lobe pneumonia Discharge Exam Constitutional WD/WN, vitals as above Eyes PERRL, conjunctivae normal, anicteric sclerae ENMT external ear and nose normal, oropharynx normal Neck trachea midline, no thyromegaly Respiratory normal respiratory effort and normal percussion; no respiratory distress, no labored breathing and does not use accessory muscles Auscultation: lungs clear to auscultation bilaterally; no rales, no rhonchi and no wheezes Cardiovascular Rate/Rhythm: regular rate and regular rhythm Heart Sounds: normal S1 and normal S2; no murmur and no cardiac rub Vessels: normal peripheral pulses Extremities: normal capillary refill and + pedal edema Gastrointestinal (Abdomen) normal bowel sounds, soft, nontender, no hepatosplenomegaly Musculoskeletal no cyanosis or clubbing, extremities motor strength 5/5 Skin no rashes, warm and dry Neurologic patellar DTR's 2+ bilat, sensation intact and PERRL, EOMI, accommodation nl, no face palsy, no dysarthria Psychiatric A+Ox3, euthymic affect Lymphatic no cervical or axillary lymphadenopathy Discharge Data Allergies Allergy/AdvReac Type Severity Reaction Status Date / Time No Known Allergies Allergy Verified 08/24/18 14:15 Consultations 08/24/18 14:51 ED Decision to Admit Stat Hospital Course (1) Right upper lobe pneumonia: continue Rocephin and Zithromax responding quite well change to Cefdinir and Zithromax on discharge complete two more days of Zithromax and four more days of Cefdinir had been sick for several days, coughing, productive of sputum, says he never looks at what color has mild leukocytosis and tachycardia on admission heart rate down to normal, WBC down to normal today at 7k CXR showed right sided pneumonia d/c to home (2) Sepsis: qualifies with pneumonia as well as leukocytosis and tachycardia on admission no signs of organ failure, no hypotension treat with IV fluids and Antibiotics blood cultures negative at three days (3) Hypoglycemia: likely due to poor oral intake he claims his A1c was 5.9 hold oral agents will NOT use diabetic diet as he came in with hypoglycemia, prone to this sugars stable, no hypoglycemia while here (4) CKD (chronic kidney disease) stage 2, GFR 60-89 ml/min: Cr is stable, electrolytes stable (5) Tachycardia: due to sepsis resolved with IV fluids (6) Bipolar 1 disorder: continue home regimen mood is stable currently Plan: d/c to home tomorrow morning, wants to be d/c by 10am Total Time Total Time Spent Total Time Spent (In Minutes): 35 minutes Total Time Includes: Examination of the Patient, Discharge Planning and Medication Reconciliation Discharge Plan Discharge Items Patient Disposition: Home - Self-Care Reason For Visit: PNEUMONIA,SEPSIS Discharge Diagnosis: Right middle lobe pneumonia Sepsis Hypoglycemia Condition: Good Discharge Goals: Improve disease control and Improve function Activity: Resume your previous activity Non-emergency contact: Primary Care Provider Call non-emergency contact if: you have any medication questions, your symptoms worsen and you have a fever Follow-up/Referrals: Yohannes Carrillo MD [Primary Care Provider] - 08/29/18 4:00 pm (Please, follow up with Dr. Carrillo on SaturdayAugust 29 at 4:00 pm. *If you need to change this appointment, call the office at [phone].) Diet: Regular Addtl Provider Instructions: Medications: - AZITHROMYCIN: take 500mg daily for two more days - CEFDINIR: 300mg twice a day for 8 more doses, can start taking tonight Right middle lobe pneumonia, sepsis improved quickly with IV antibiotics and fluids complete 2 more days of Azithromcyin and 4 more days of Cefdinir increase activity as tolerated stay well hydrated and well nourished, get rest the next few days FOLLOW UP - Dr. Carrillo on 08/29 Prescriptions: New azithromycin [Zithromax] 250 mg Tablet 500 mg PO QAM 2 Days Qty: 4 RF: 0 cefdinir 300 mg capsule 300 mg PO BID 4 Days Qty: 8 RF: 0 Continued metformin 500 mg tablet 500 - 1,000 mg PO QPM RF: 0 ziprasidone HCl 80 mg Capsule 120 mg PO BID RF: 0 furosemide 40 mg Tablet 40 mg PO DAILY RF: 0 levothyroxine 175 mcg Tablet 175 mcg PO DAILYBB RF: 0 clonazepam 1 mg Tablet 1 mg PO TID PRN (Reason: Anxiety) RF: 0 divalproex 500 mg Tablet,Delayed Release (Dr/Ec) 1,000 mg PO QAM RF: 0 divalproex 500 mg Tablet,Delayed Release (Dr/Ec) 1,500 mg PO HS RF: 0 buspirone 30 mg Tablet 30 mg PO BID RF: 0 lisinopril 10 mg Tablet 10 mg PO DAILY RF: 0 omeprazole 20 mg Capsule,Delayed Release(Dr/Ec) 20 mg PO DAILYBB RF: 0 montelukast 10 mg Tablet 10 mg PO PM RF: 0 pravastatin 20 mg Tablet 20 mg PO HS RF: 0 ranitidine HCl 150 mg Capsule 150 mg PO BID RF: 0 polyethylene glycol 3350 17 gram/dose Powder 17 g PO BID RF: 0 albuterol sulfate 90 mcg/actuation Hfa Aerosol Inhaler 2 puff INHALATION QID PRN (Reason: Shortness Of Breath) RF: 0 loratadine 10 mg Tablet 10 mg PO DAILY RF: 0 loxapine succinate 50 mg Capsule 100 mg PO DAILY RF: 0 potassium chloride 20 mEq Tablet Extended Release 40 meq PO DAILY RF: 0 sildenafil [Viagra] 50 mg Tablet 50 mg PO DAILY PRN (Reason: Sexual Activity) RF: 0 magnesium oxide 400 mg Capsule 400 mg PO DAILY RF: 0 doxycycline hyclate 100 mg Capsule 100 mg PO BID RF: 0 sennosides-docusate sodium [Senna Plus] 8.6-50 mg Tablet 1 - 2 tab PO HS RF: 0 metformin 850 mg Tablet 850 mg PO HS PRN (Reason: IF BSG HIGH) RF: 0 aspirin [Aspir-81] 81 mg Tablet,Delayed Release (Dr/Ec) 81 mg PO DAILY RF: 0 bupropion HCl 100 mg Tablet Sustained-Release 12 Hr 150 mg PO BID RF: 0 benztropine 1 mg Tablet 1 - 2 mg PO DAILY RF: 0 fluticasone propionate 50 mcg/actuation [place],Suspension 1 - 2 spray INTRANASAL DAILY RF: 0 Stand-Alone Forms: [facility] Discharge Orders: Discharge Order (Routine); Ordered 08/26/18 Ordered By: Az Arellano Admission Data Admit Date/Time: 08/24/18 14:58 Attending Provider: Az Arellano Admit Provider: Az Arellano Primary Care Provider: Yohannes Carrillo. Other Providers: Az Arellano Service: Medical Other Interventions: Discharge Summary Assessment (RN) Last Done: 08/26/18 09:18 DC Date/Time DO NOT enter until pt leaves facility: 08/26/18 10:23
[2018-08-26] MEDS: BuPROPion SR 150 MG TABCR PO SCH (08:24)
[2018-08-26] MEDS: LORATADINE 10 MG TAB PO SCH (08:24)
[2018-08-26] MEDS: DIVALPROEX DELAY RELEASE 500 MG TAB PO SCH (08:25)
[2018-08-26] MEDS: BusPIRone 15 MG TAB PO SCH (08:25)
[2018-08-26] MEDS: BENZTROPINE MESYLATE 1 MG TAB PO SCH (08:26)
[2018-08-26] MEDS: ZIPRASIDONE HCL 20 MG CAP PO SCH (08:26)
[2018-08-26] MEDS: POLYETHYLENE (MIRALAX) 17 GM PACK PO SCH (08:26)
[2018-08-26] MEDS: AZITHROMYCIN 250 MG TAB PO SCH (08:27)
[2018-08-26] MEDS: ASPIRIN 81 MG ECTAB PO SCH (08:27)
[2018-08-26] MEDS: FLUTICASONE PROPIONATE NA SPR 16 GM BTL SCH (08:27)
[2018-08-26] MEDS: POTASSIUM CHLORIDE 20 MEQ TABCR PO SCH (08:27)
[2018-08-26] MEDS ORDERED: FUROSEMIDE 40 MG TAB PO SCH (09:00)
== END 2018-08-26 10:23 | disposition home or self-care (01) | DRG 871 ==
LOC: ED 12:43 → 4E 14:58

== ENCOUNTER 2019-01-22 12:07 | Inpatient (IN) ==
[2019-01-22] MEDS ORDERED: SODIUM CHLORIDE 0.9% 1000ML 1,000 ML IV SCH ×3 (13:00→18:50)
--- NOTE | 2019-01-22 13:18 | XRay Report ---
XR chest 1V portable HISTORY: weakness COMPARISON: Chest 12/05/2018. FINDINGS: Slight progression of the interstitial airspace opacities within the right lung compared to the prior study. No pneumothorax. Left lung is clear. The heart is normal in size. No pleural effusi ons. No pneumothorax. IMPRESSION: Slight progression of the interstitial airspace opacities within the right lung compared to the prior study. This is nonspecific and could represent an atypical pneumonitis or asymmetric pulmonary edema . Given the lack of improvement from the prior study, a follow-up chest CT [facility]. Electronically signed by: Errol Naik M.D. 01/22/2019 1:17 PM
[2019-01-22 13:47] LABS: Eosinophils # (auto) 0.01 K/uL (0-0.5); Eosinophils % (auto) 0.1 %; Hematocrit (blood only) 47.7 % (42-52); Hemoglobin 16.6 g/dL (14.0-18.0); Immature Granulocytes # (auto) 0.02 K/uL (0.00-0.02); Immature Granulocytes % (auto) 0.2 %; Lymphocytes # (auto) 0.62 K/uL (1.2-3.4); Mean Corpuscular Hemoglobin 30.5 pg (25-34); Mean Corpuscular Hgb Conc 34.8 g/dL (32-36); Mean Corpuscular Volume 87.7 fL (80-100); Mean Platelet Volume 9.1 fL (7.4-10.4); Monocytes # (auto) 0.49 K/uL (0.11-0.59); Monocytes % (auto) 5.5 %; Neutrophils # (auto) 7.74 K/uL (1.4-6.5); Neutrophils % (auto) 87.2 %; Platelet Count 176 K/uL (130-400); RDW Coefficient of Variation 14.7 % (11.5-14.5); RDW Standard Deviation 46.4 fL (36.4-46.3); Red Blood Count 5.44 M/uL (4.7-6.1); White Blood Count 8.88 K/uL (4.8-10.8)
[2019-01-22 14:03] LABS: Albumin Level 3.5 gm/dl (3.4-5.0); Calcium 10.2 mg/dl (8.5-10.1); Est GFR (African American) 73.5; Est GFR (Non-African American) 63.4; Potassium 4.1 mmol/L (3.5-5.1)
[2019-01-22 14:13] LABS: Bilirubin,Total 0.6 mg/dl (0.2-1); Globulin 3.5 gm/dl (2.5-4.0); Thyroid Stimulating Hormone 2.82 uIu/ml (0.300-4.500)
[2019-01-22] MEDS ORDERED: OPTIRAY 320 125ml IV PRN (14:51)
--- NOTE | 2019-01-22 15:07 | CT Scan Report ---
CT angio chest PE protocol CLINICAL HISTORY: 58 years-old Male presenting with atypical chest pain, weakness, clinical concern f or pulmonary bolus. TECHNIQUE: Multidetector CT angiography of the chest was performed after administration of intravenou s contrast. 3-D volumetric and/or maximum intensity projection (MIP) images were subsequently reconst ructed for review. IV contrast: 120 mL of Optiray 320. One or more dose lowering techniques were used consistent with the principles of ALARA (as low as reasonably achievable), including automatic expos ure control, mA or kV adjustment to individual patient size, and/or use of iterative reconstruction. COMPARISON: 02/23/2018. CT DOSE (mGy.cm): The estimated cumulative dose is 593.71 mGycm. FINDINGS: Laboratory Phlebotomist topogram: Unremarkable. Pulmonary vasculature: The study is suboptimal for the assessment of the pulmonary vascular tree secondary to respiratory mo tion artifact. Allowing for limited image quality, no central filling defect to suggest pulmonary emb olus. Main pulmonary artery is not enlarged. No flattening of the interventricular septum. No intraca rdiac filling defect. No reflux of contrast into the hepatic veins. Remaining chest: Soft tissues: Normal thyroid and thoracic inlet. No axillary, supraclavicular, mediastinal, or hilar lymphadenopathy. 4 vessel aortic arch. Tortuosity of the major branch vessels of the aorta may sugges t chronic hypertension. Tortuosity of the descending thoracic aorta. Normal heart size. No pericardia l or pleural effusion. Redemonstration of the low density round structure adjacent to the gastric car nichole and spleen measuring 2.5 cm. Resolution of prior inflammatory change. 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 Small hiatal hernia may be present. Lungs and airways: No pneumothorax. Central airways patent. Pulmonary arteries are not significantly enlarged relative to adjacent bronchi. Mild interlobular septal thickening in the right upper and low er lobes. Extensive groundglass infiltrate throughout the apical and posterior segments of the right upper lobe and all segments of the right lower lobe. The right middle lobe is largely spared apart fr om the dependent portions. Left lung clear. Respiratory motion artifact mildly degrades evaluation of the lung parenchyma. Musculoskeletal: Degenerative changes of the spine. IMPRESSION: 1. Allowing for suboptimal image quality, no evidence of pulmonary embolus. 2. Multifocal infiltrates in the right lung primarily in the right upper and lower lobes. This is ev idence of multifocal pneumonia. 3. Additional chronic findings as above. Electronically signed by: Lam Chopra M.D. 01/22/2019 3:06 PM
[2019-01-22 15:14] LABS: Appearance Urine Clear (Clear); Bilirubin Urine Negative (Negative); Blood Urine Negative (Negative); Color Urine Yellow; Glucose Urine UA Negative (Negative); Ketones Urine Negative (Negative); Leukocyte Esterase Urine Negative (Negative); Nitrite Urine Negative (Negative); Protein Urine Negative (Negative); Specific Gravity Urine 1.015 (1.000-1.030); Urobilinogen Urine Negative (Negative); pH Urine 8.5 (4.5-7.5)
[2019-01-22] MEDS ORDERED: PIPERACILL/TAZOBAC CONSULT ACTIVE PRN (16:15)
[2019-01-22] MEDS ORDERED: PIPERACILLIN/TAZOBACTAM 4.5 GM/120 ML BAG IV ONE (16:15)
[2019-01-22] MEDS ORDERED: GLUCOSE 40% GEL 15 GM TUBE PO PRN (18:50)
[2019-01-22] MEDS ORDERED: ACETAMINOPHEN 325 MG TAB PO PRN (18:50)
[2019-01-22] MEDS ORDERED: GLUCOSE 10 TABS/TUBE PO PRN (18:50)
[2019-01-22] MEDS ORDERED: MAGNESIUM HYDROXIDE SUSP 30 ML UDC PO PRN (18:50)
[2019-01-22] MEDS ORDERED: clonazePAM 1 MG TAB PO PRN (18:50)
[2019-01-22] MEDS ORDERED: ALUMINUM/MAGNESIUM SUSP 30 ML UDC PO PRN (18:50)
[2019-01-22] MEDS ORDERED: ALBUT/IPRATROP 3MG/0.5MG NEB 3 ML VIAL NEB PRN (18:50)
[2019-01-22] MEDS ORDERED: ZOLPIDEM TARTRATE 5 MG TAB PO PRN (18:50)
[2019-01-22] MEDS ORDERED: ALBUTEROL HFA 8 GM INHALER INH PRN (18:50)
[2019-01-22] MEDS ORDERED: GLUCAGON FOR INJ 1 MG VIAL SQ PRN (18:50)
[2019-01-22] MEDS ORDERED: DEXTROSE 50% 50 ML SYRINGE IV PRN (18:50)
[2019-01-22] MEDS ORDERED: ONDANSETRON INJ 2 MG/ML 2 ML VIAL IV PRN (18:50)
[2019-01-22] MEDS ORDERED: PHARMACY GLYCEMIC MGMT CONSULT PRN (20:09)
[2019-01-22] MEDS: CARBOHYDRATES FOR HYPOGLYCEMIA PO PRN ×2 (20:36→20:51)
[2019-01-22] MEDS: DOXYCYCLINE HYCLATE 100 MG in DEXTROSE 5% 100 ML IV SCH (20:40)
[2019-01-22] MEDS: cefTRIAXone SODIUM 2,000 MG/70 ML BAG IV SCH (20:40)
[2019-01-22] MEDS: methylPREDNISolone 40 MG in SYRINGE 0 ML IV SCH (20:42)
--- NOTE | 2019-01-22 20:49 | Emergency Department Note ---
Entered by Nate Maloney acting as a scribe for Kristine Love MD History of Present Illness General Chief complaint: Weakness Stated complaint: WEAKNESS Source: patient History of Present Illness Onset (ago): hour(s) (this morning) Pain Consistency: + constant Maximum Pain Intensity: 0 Quality: + other (weakness) Relieved By: + none Associated symptoms: + denies other symptoms and + other (resolved chills) The patient is a 58 y/o male who presents to the ED w/ CC of constant weakness beginning this morning. The patient states he has felt weak today and urinated his pants. He reports he was experiencing chills last night because his AC was running too long last night. The patient notes he did not take any of his medication this morning. He states he has caregivers during the day M-, o therwise he lives alone. The patient reports he would like to be discharged with antibiotics and does not know why he has a fever. He denies current discomfort. Nothing helps his weakness. Home Medications Home Medications Medication Instructions Recorded Confirmed Type albuterol sulfate 2 puff INHALATION QID PRN 01/26/18 01/22/19 History buspirone 30 mg PO BID 01/26/18 01/22/19 History clonazepam 1 mg PO TID PRN 01/26/18 01/22/19 History divalproex 1,000 mg PO QAM 01/26/18 01/22/19 History divalproex 1,500 mg PO HS 01/26/18 01/22/19 History furosemide 40 mg PO DAILY 01/26/18 01/22/19 History levothyroxine 175 mcg PO DAILYBB 01/26/18 01/22/19 History loratadine 10 mg PO DAILY 01/26/18 01/22/19 History loxapine succinate 100 mg PO DAILY 01/26/18 01/22/19 History ranitidine HCl 150 mg PO BID 01/26/18 01/22/19 History ziprasidone HCl 120 mg PO BID 01/26/18 01/22/19 History metformin 500 - 1,000 mg PO QPM 06/08/18 01/22/19 History aspirin [Aspir-81] 81 mg PO DAILY 07/07/18 01/22/19 History bupropion HCl 150 mg PO BID 07/07/18 01/22/19 History clonazepam 2 mg PO HS PRN 10/13/18 01/22/19 History metformin 850 mg tablet 850 mg PO HS PRN #90 tab 11/19/18 01/22/19 Rx omeprazole 20 mg capsule,delayed 20 mg PO DAILY #90 cap 11/20/18 01/22/19 Rx release montelukast 10 mg tablet 10 mg PO PM #90 tab 11/21/18 01/22/19 Rx polyethylene glycol 3350 17 17 g PO BID #238 gm 12/25/18 01/22/19 Rx gram/dose oral powder Microlet lancets #200 ea 01/07/19 01/22/19 Rx blood sugar diagnostic strips #200 ea 01/07/19 01/22/19 Rx lisinopril 10 mg tablet 10 mg PO DAILY #90 tab 01/21/19 01/22/19 Rx Saccharomyces boulardii 250 mg PO DAILY 7 Days #7 cap 01/24/19 Rx amoxicillin-pot clavulanate 1 tab PO BID 5 Days #10 tab 01/24/19 Rx [Augmentin] Allergies Allergy/AdvReac Type Severity Reaction Status Date / Time No Known Drug Allergies Allergy Verified 01/22/19 12:35 Past Med/Surg History Medical History Hypothyroidism (Chronic 05/20/12) Mitral regurgitation Schizoaffective disorder, bipolar type Sleep apnea Tricuspid regurgitation Diabetes Hypertension Surgical History S/P total knee arthroplasty 08/2017 Family History Unknown Diabetes Hypertension Mother Hypertension Social History Preferred Language: Lithuanian Communication Ability: Effective Visual Impairment: Limited Hearing Ability: Normal Family Medicine Chair Required: No Beliefs That Will Affect Care: None marital status: Single Current Living Situation: Alone current occupational status: unemployed Feels Safe at Home: Yes Smoking Status: Never smoker Second Hand Exposure: No ; Hx Alcohol Use: No Hx Substance Use: No Seatbelt Use: always Review of Systems See HPI for pertinent positives & negatives. and A total of 10 systems reviewed and were otherwise negative Physical Exam Vital Signs Vital Signs - 24 hr 01/22/19 12:09 01/22/19 12:24 01/22/19 12:35 Temperature 37.4 C Temperature Source Oral Sepsis Recent Fever Within 48 Hours No Sepsis New/Unexplained Change in Mental Status No Sepsis Action Taken by Nursing No Action Required Pulse Rate 117 H 116 H 117 H Pulse Rate [Apical] Pulse Rate from SpO2 Sensor 117 H 116 H Pulse Rhythm [Apical] Pulse Strength [Apical] Respiratory Rate 16 20 18 Respiratory Effort / Characteristics Respiratory Depth Respiratory Pattern Blood Pressure 126/83 126/83 Blood Pressure [Right Arm] Blood Pressure Mean 97 97 Blood Pressure Mean [Right Arm] Blood Pressure Position [Right Arm] Pulse Oximetry 97 16 L 95 Oxygen Delivery Method 01/22/19 13:00 01/22/19 13:59 01/22/19 14:01 Temperature Temperature Source Sepsis Recent Fever Within 48 Hours Sepsis New/Unexplained Change in Mental Status Sepsis Action Taken by Nursing Pulse Rate 111 H Pulse Rate [Apical] 113 H Pulse Rate from SpO2 Sensor 112 H 111 H 113 H Pulse Rhythm [Apical] Pulse Strength [Apical] Respiratory Rate 30 H 26 H Respiratory Effort / Characteristics Respiratory Depth Respiratory Pattern Blood Pressure 111/91 Blood Pressure [Right Arm] 111/91 Blood Pressure Mean 97 Blood Pressure Mean [Right Arm] 97 Blood Pressure Position [Right Arm] Pulse Oximetry 94 94 94 Oxygen Delivery Method Room Air 01/22/19 14:39 01/22/19 14:58 01/22/19 15:00 Temperature Temperature Source Sepsis Recent Fever Within 48 Hours Sepsis New/Unexplained Change in Mental Status Sepsis Action Taken by Nursing Pulse Rate Pulse Rate [Apical] Pulse Rate from SpO2 Sensor Pulse Rhythm [Apical] Pulse Strength [Apical] Respiratory Rate 20 7 L Respiratory Effort / Characteristics Respiratory Depth Respiratory Pattern Blood Pressure 118/81 Blood Pressure [Right Arm] Blood Pressure Mean 93 Blood Pressure Mean [Right Arm] Blood Pressure Position [Right Arm] Pulse Oximetry 94 Oxygen Delivery Method Room Air 01/22/19 16:00 01/22/19 16:26 01/22/19 16:36 Temperature Temperature Source Sepsis Recent Fever Within 48 Hours Sepsis New/Unexplained Change in Mental Status Sepsis Action Taken by Nursing Pulse Rate Pulse Rate [Apical] 103 H Pulse Rate from SpO2 Sensor Pulse Rhythm [Apical] Regular Pulse Strength [Apical] Normal Respiratory Rate 35 H Respiratory Effort / Characteristics Non-Labored Spontaneous Respiratory Depth Normal Respiratory Pattern Regular Blood Pressure 128/92 Blood Pressure [Right Arm] 128/92 Blood Pressure Mean 104 Blood Pressure Mean [Right Arm] 104 Blood Pressure Position [Right Arm] Sitting Pulse Oximetry 98 Oxygen Delivery Method Room Air 01/22/19 17:00 01/22/19 17:05 Temperature Temperature Source Sepsis Recent Fever Within 48 Hours Sepsis New/Unexplained Change in Mental Status Sepsis Action Taken by Nursing Pulse Rate 102 H Pulse Rate [Apical] 88 Pulse Rate from SpO2 Sensor Pulse Rhythm [Apical] Pulse Strength [Apical] Respiratory Rate 22 22 Respiratory Effort / Characteristics Respiratory Depth Respiratory Pattern Blood Pressure Blood Pressure [Right Arm] 112/80 Blood Pressure Mean Blood Pressure Mean [Right Arm] 90 Blood Pressure Position [Right Arm] Pulse Oximetry 96 Oxygen Delivery Method Vital signs reviewed. General: Chronically ill-appearing 58 y/o male, in no significant distress. HEENT: No scleral icterus, PERRLA, neck supple. Atraumatic. Cardiovascular: Tachycardic rate and regular rhythm, no extra sounds. Pulmonary: Clear to auscultation bilaterally, normal work of breathing. Abdomen: Soft, nontender, nondistended, positive bowel sounds. Musculoskeletal: Atraumatic, Lymphedema to the bilateral lower extremities. Neurologic: Patient awake alert and oriented x 3, equal strength in all 4 extremities Skin: Warm, dry, no rash Course 1256: Past medical records reviewed. The patient was evaluated in room B05. A complete history and physical examination was performed. 1638: I reviewed the patient's case with Dr. Walker, [facility] Hospitalist. She will evaluate the patient for further management. 1651: Upon reevaluation, the patient is resting comfortably. I discussed laboratory and radiographic results with him. He verbalized agreement of the treatment plan. The patient will be evaluated for further management and care. Administered Medications Discontinued Medications Aspirin (Ecotrin Ectab) 81 mg PO DAILY GLORIA Stop: 02/22/19 08:59 Last Admin: 01/24/19 07:53 Dose: 81 mg Documented by: [id number] Admin: 01/23/19 08:32 Dose: 81 mg Documented by: [id number] Bupropion HCl (Wellbutrin-Sr) 150 mg PO BID GLORIA Stop: 02/21/19 20:59 Last Admin: 01/24/19 07:55 Dose: 150 mg Documented by: [id number] Admin: 01/23/19 20:12 Dose: 150 mg Documented by: [id number] Admin: 01/23/19 08:32 Dose: 150 mg Documented by: [id number] Admin: 01/22/19 21:02 Dose: 150 mg Documented by: [id number] Buspirone HCl (Buspar) 30 mg PO BID GLORIA Stop: 02/21/19 20:59 Last Admin: 01/24/19 07:51 Dose: 30 mg Documented by: [id number] Admin: 01/23/19 20:12 Dose: 30 mg Documented by: [id number] Admin: 01/23/19 08:32 Dose: 30 mg Documented by: [id number] Admin: 01/22/19 21:02 Dose: 30 mg Documented by: [id number] Clonazepam (Klonopin) 2 mg PO HS PRN PRN Reason: RESTLESSNESS Stop: 02/21/19 18:49 Last Admin: 01/24/19 03:22 Dose: 2 mg Documented by: [id number] Admin: 01/22/19 22:16 Dose: 2 mg Documented by: [id number] Divalproex Sodium (Depakote Delay Release) 1,000 mg PO QAM GLORIA Stop: 02/22/19 08:59 Last Admin: 01/24/19 07:52 Dose: 1,000 mg Documented by: [id number] Admin: 01/23/19 08:32 Dose: 1,000 mg Documented by: [id number] Divalproex Sodium (Depakote Delay Release) 1,500 mg PO HS GLORIA Stop: 02/21/19 20:59 Last Admin: 01/23/19 20:10 Dose: 1,500 mg Documented by: [id number] Admin: 01/22/19 21:02 Dose: 1,500 mg Documented by: [id number] Enoxaparin Sodium (Lovenox) 40 mg SQ Q24H GLORIA Stop: 02/21/19 20:59 Last Admin: 01/23/19 20:13 Dose: 40 mg Documented by: [id number] Admin: 01/22/19 21:03 Dose: 40 mg Documented by: [id number] Furosemide (Lasix) 40 mg PO DAILY [facility] Stop: 02/22/19 08:59 Last Admin: 01/24/19 07:54 Dose: 40 mg Documented by: [id number] Admin: 01/23/19 08:32 Dose: 40 mg Documented by: [id number] Sodium Chloride (Nss 1000ml) 1,000 mls @ 999 mls/hr IV .Q1H1M GLORIA Stop: 01/22/19 14:00 Last Infusion: 01/22/19 15:19 Dose: 0 mls/hr Documented by: [id number] Admin: 01/22/19 14:01 Dose: 999 mls/hr Documented by: [id number] Sodium Chloride (Nss 1000ml) 1,000 mls @ 200 mls/hr IV .Q5H GLORIA Stop: 02/21/19 14:14 Last Infusion: 01/22/19 18:58 Dose: 0 mls/hr Documented by: [id number] Admin: 01/22/19 17:21 Dose: 200 mls/hr Documented by: [id number] Piperacillin Sod/Tazobactam Sod (Zosyn) 4.5 gm in 120 mls @ 240 mls/hr IV NOW ONE Stop: 01/22/19 16:44 Last Infusion: 01/22/19 17:21 Dose: 0 mls/hr Documented by: [id number] Admin: 01/22/19 16:41 Dose: 240 mls/hr Documented by: [id number] Doxycycline Hyclate 100 mg/ (Dextrose) 110 mls @ 50 mls/hr IV BID GLORIA Stop: 01/29/19 20:59 Last Infusion: 01/24/19 10:42 Dose: 0 mls/hr Documented by: [id number] Infusion: 01/24/19 09:09 Dose: 0 mls/hr Documented by: [id number] Admin: 01/24/19 07:59 Dose: 50 mls/hr Documented by: [id number] Infusion: 01/23/19 23:20 Dose: 0 mls/hr Documented by: [id number] Admin: 01/23/19 21:09 Dose: 50 mls/hr Documented by: [id number] Infusion: 01/23/19 11:01 Dose: 0 mls/hr Documented by: [id number] Admin: 01/23/19 08:48 Dose: 50 mls/hr Documented by: [id number] Infusion: 01/22/19 22:39 Dose: 0 mls/hr Documented by: [id number] Admin: 01/22/19 20:40 Dose: 50 mls/hr Documented by: [id number] Methylprednisolone 40 mg/ (Syringe) 0.64 mls @ 1.5 mls/min IV BID GLORIA Stop: 01/24/19 20:59 Last Admin: 01/24/19 07:54 Dose: 1.5 mls/min Documented by: [id number] Admin: 01/23/19 20:13 Dose: 1.5 mls/min Documented by: [id number] Admin: 01/23/19 08:31 Dose: 1.5 mls/min Documented by: [id number] Admin: 01/22/19 20:42 Dose: 1.5 mls/min Documented by: [id number] Ceftriaxone Sodium (Rocephin) 2,000 mg in 70 mls @ 140 mls/hr IV Q24H GLORIA Stop: 01/29/19 19:59 Last Infusion: 01/23/19 20:25 Dose: 0 mls/hr Documented by: [id number] Admin: 01/23/19 19:56 Dose: 140 mls/hr Documented by: [id number] Infusion: 01/22/19 21:16 Dose: 0 mls/hr Documented by: [id number] Admin: 01/22/19 20:40 Dose: 140 mls/hr Documented by: [id number] Sodium Chloride (Nss 1000ml) 1,000 mls @ 80 mls/hr IV .[id number] GLORIA Stop: 01/23/19 07:19 Last Infusion: 01/23/19 11:08 Dose: 0 mls/hr Documented by: [id number] Admin: 01/22/19 20:30 Dose: 80 mls/hr Documented by: [id number] Insulin Aspart (Novolog Flexpen) 0 units SC ACHS GLORIA Stop: 02/21/19 20:59 Last Admin: 01/24/19 07:56 Dose: 3 units Documented by: [id number] Cosigned by: [id number] Admin: 01/23/19 20:44 Dose: Not Given Documented by: [id number] Cosigned by: [id number] Admin: 01/23/19 17:26 Dose: 2 units Documented by: [id number] Cosigned by: [id number] Admin: 01/23/19 13:36 Dose: 2 units Documented by: [id number] Cosigned by: [id number] Admin: 01/23/19 08:39 Dose: Not Given Documented by: [id number] Cosigned by: [id number] Admin: 01/22/19 21:02 Dose: Not Given Documented by: [id number] Cosigned by: [id number] Insulin Aspart (Novolog Flexpen) 0 units SC 0000,0400 [facility]OR[facility] Stop: 01/23/19 04:01 Last Admin: 01/23/19 04:00 Dose: Not Given Documented by: [id number] Cosigned by: [id number] Admin: 01/23/19 00:07 Dose: Not Given Documented by: [id number] Ioversol (Optiray 320 125ml) 120 ml IV ONCE PRN PRN Reason: Interaction Checking Stop: 01/26/19 14:50 Last Admin: 01/22/19 14:57 Dose: 120 ml Documented by: [id number] [facility]: 02/22/19 06:29 Last Admin: 01/24/19 05:46 Dose: 175 mcg Documented by: [id number] Admin: 01/23/19 06:26 Dose: 175 mcg Documented by: [id number] Lisinopril (Zestril) 10 mg PO DAILY [facility] Stop: 02/22/19 08:59 Last Admin: 01/24/19 07:55 Dose: 10 mg Documented by: [id number] Admin: 01/23/19 08:32 Dose: 10 mg Documented by: [id number] Loratadine (Claritin) 10 mg PO DAILY [facility] Stop: 02/22/19 08:59 Last Admin: 01/24/19 07:52 Dose: 10 mg Documented by: [id number] Admin: 01/23/19 08:32 Dose: 10 mg Documented by: [id number] Miscellaneous (Order Awaiting Action) 1 ea N/A QS [facility] Stop: 02/22/19 00:00 Last Admin: 01/24/19 07:51 Dose: Not Given Documented by: [id number] Admin: 01/24/19 01:14 Dose: Not Given Documented by: [id number] Admin: 01/23/19 16:53 Dose: Not Given Documented by: [id number] Admin: 01/23/19 07:54 Dose: Not Given Documented by: [id number] Admin: 01/23/19 00:00 Dose: Not Given Documented by: [id number] Miscellaneous (Carbohydrates For Hypoglycemia) 15 - 30 gm PO UD PRN PRN Reason: Hypoglycemia Treatment Stop: 02/21/19 18:49 Last Admin: 01/22/19 20:51 Dose: 15 gm Documented by: [id number] Admin: 01/22/19 20:36 Dose: 15 gm Documented by: [id number] Montelukast Sodium (Singulair) 10 mg PO PM GLORIA Stop: 02/21/19 20:59 Last Admin: 01/23/19 20:12 Dose: 10 mg Documented by: [id number] Admin: 01/22/19 21:02 Dose: 10 mg Documented by: [id number] Polyethylene Glycol (Miralax Powder Packet) 17 gm PO BID GLORIA Stop: 02/21/19 20:59 Last Admin: 01/24/19 07:54 Dose: 17 gm Documented by: [id number] Admin: 01/23/19 19:43 Dose: 17 gm Documented by: [id number] Admin: 01/23/19 08:31 Dose: 17 gm Documented by: [id number] Admin: 01/22/19 21:03 Dose: 17 gm Documented by: [id number] Ranitidine HCl (Zantac) 150 mg PO BID GLORIA Stop: 02/21/19 20:59 Last Admin: 01/24/19 07:55 Dose: 150 mg Documented by: [id number] Admin: 01/23/19 20:12 Dose: 150 mg Documented by: [id number] Admin: 01/23/19 08:32 Dose: 150 mg Documented by: [id number] Admin: 01/22/19 21:02 Dose: 150 mg Documented by: [id number] Fluticasone/Salmeterol (Advair Diskus 250/50) 1 puffs INH BID GLORIA Stop: 02/21/19 20:59 Last Admin: 01/24/19 07:55 Dose: 1 puffs Documented by: [id number] Admin: 01/23/19 20:11 Dose: 1 puffs Documented by: [id number] Admin: 01/23/19 08:31 Dose: 1 puffs Documented by: [id number] Admin: 01/22/19 21:03 Dose: 1 puffs Documented by: [id number] Ziprasidone (Geodon) 80 mg PO BID GLORIA Stop: 02/21/19 20:59 Last Admin: 01/24/19 07:53 Dose: 80 mg Documented by: [id number] Admin: 01/23/19 20:11 Dose: 80 mg Documented by: [id number] Admin: 01/23/19 08:31 Dose: 80 mg Documented by: [id number] Admin: 01/22/19 21:02 Dose: 80 mg Documented by: [id number] Ziprasidone (Geodon) 40 mg PO BID GLORIA Stop: 02/21/19 20:59 Last Admin: 01/24/19 07:54 Dose: 40 mg Documented by: [id number] Admin: 01/23/19 20:10 Dose: 40 mg Documented by: [id number] Admin: 01/23/19 08:32 Dose: 40 mg Documented by: [id number] Admin: 01/22/19 21:02 Dose: 40 mg Documented by: [id number] Medical Decision Making Differential Diagnosis Differential diagnoses: influenza, other viral illness, pneumonia, urinary tract infection, metabolic abnormality, medication effect, cellulitis, meningitis, intra-abdominal source. Medical Records Attestation: I reviewed the patient's medical records. Home Medications Current Medication List: was personally reviewed by me Laboratory Data Attestation: I reviewed the patient's lab results. Result diagrams: 01/24/19 05:40 01/24/19 05:40 Lab Results 01/22/19 01/22/19 01/22/19 Range/Units 13:29 13:29 13:29 WBC 8.88 (4.8-10.8) K/uL RBC 5.44 (4.7-6.1) M/uL Hgb 16.6 (14.0-18.0) g/dL Hct 47.7 (42-52) % MCV 87.7 (80-100) fL MCH 30.5 (25-34) pg MCHC 34.8 (32-36) g/dL RDW Std Deviation 46.4 H (36.4-46.3) fL RDW Coeff of Joey 14.7 H (11.5-14.5) % Plt Count 176 (130-400) K/uL MPV 9.1 (7.4-10.4) fL Immature Gran % (Auto) 0.2 % Neut % (Auto) 87.2 % Lymph % (Auto) 7.0 % [place] % (Auto) 5.5 % Eos % (Auto) 0.1 % Baso % (Auto) 0.0 % Immature Gran # (Auto) 0.02 (0.00-0.02) K/uL Neut # (Auto) 7.74 H (1.4-6.5) K/uL Lymph # (Auto) 0.62 L (1.2-3.4) K/uL [place] # (Auto) 0.49 (0.11-0.59) K/uL Eos # (Auto) 0.01 (0-0.5) K/uL Baso # (Auto) 0.00 (0-0.2) K/uL Sodium 132 L (136-145) mmol/L Potassium 4.1 (3.5-5.1) mmol/L Chloride 95 L (98-107) mmol/L Carbon Dioxide 27 (21-32) mmol/L Anion Gap 9.0 (3-11) BUN 15 (7-18) mg/dl Creatinine 1.23 (0.6-1.4) mg/dl Est Cr Clr Drug Dosing 68.0 ml/min Est GFR ( Amer) 73.5 Est GFR (Non-Af Amer) 63.4 BUN/Creatinine Ratio 12.0 (10-20) Glucose 97 (70-99) mg/dl Lactate 2.9 H* (0.4-2.0) mmol/L Calcium 10.2 H (8.5-10.1) mg/dl Magnesium 2.0 (1.8-2.4) mg/dl Total Bilirubin 0.6 (0.2-1) mg/dl AST 49 H (15-37) U/L ALT 41 (12-78) U/L Alkaline Phosphatase 88 (45-117) U/L Total Protein 7.0 (6.4-8.2) gm/dl Albumin 3.5 (3.4-5.0) gm/dl Globulin 3.5 (2.5-4.0) gm/dl Albumin/Globulin Ratio 1.0 (0.9-2) TSH 2.820 (0.300-4.500) uIu/ml Urine Color Urine Appearance (Clear) Urine pH (4.5-7.5) Ur Specific [place] (1.000-1.030) Urine Protein (Negative) Urine Glucose (UA) (Negative) Urine Ketones (Negative) Urine Blood (Negative) Urine Nitrite (Negative) Urine Bilirubin (Negative) Urine Urobilinogen (Negative) Ur Leukocyte Esterase (Negative) 01/22/19 Range/Units 15:05 WBC (4.8-10.8) K/uL RBC (4.7-6.1) M/uL Hgb (14.0-18.0) g/dL Hct (42-52) % MCV (80-100) fL MCH (25-34) pg MCHC (32-36) g/dL RDW Std Deviation (36.4-46.3) fL RDW Coeff of Joey (11.5-14.5) % Plt Count (130-400) K/uL MPV (7.4-10.4) fL Immature Gran % (Auto) % Neut % (Auto) % Lymph % (Auto) % [place] % (Auto) % Eos % (Auto) % Baso % (Auto) % Immature Gran # (Auto) (0.00-0.02) K/uL Neut # (Auto) (1.4-6.5) K/uL Lymph # (Auto) (1.2-3.4) K/uL [place] # (Auto) (0.11-0.59) K/uL Eos # (Auto) (0-0.5) K/uL Baso # (Auto) (0-0.2) K/uL Sodium (136-145) mmol/L Potassium (3.5-5.1) mmol/L Chloride (98-107) mmol/L Carbon Dioxide (21-32) mmol/L Anion Gap (3-11) BUN (7-18) mg/dl Creatinine (0.6-1.4) mg/dl Est Cr Clr Drug Dosing ml/min Est GFR ( Amer) Est GFR (Non-Af Amer) BUN/Creatinine Ratio (10-20) Glucose (70-99) mg/dl Lactate (0.4-2.0) mmol/L Calcium (8.5-10.1) mg/dl Magnesium (1.8-2.4) mg/dl Total Bilirubin (0.2-1) mg/dl AST (15-37) U/L ALT (12-78) U/L Alkaline Phosphatase (45-117) U/L Total Protein (6.4-8.2) gm/dl Albumin (3.4-5.0) gm/dl Globulin (2.5-4.0) gm/dl Albumin/Globulin Ratio (0.9-2) TSH (0.300-4.500) uIu/ml Urine Color Yellow Urine Appearance Clear (Clear) Urine pH 8.5 H (4.5-7.5) Ur Specific [place] 1.015 (1.000-1.030) Urine Protein Negative (Negative) Urine Glucose (UA) Negative (Negative) Urine Ketones Negative (Negative) Urine Blood Negative (Negative) Urine Nitrite Negative (Negative) Urine Bilirubin Negative (Negative) Urine Urobilinogen Negative (Negative) Ur Leukocyte Esterase Negative (Negative) Imaging Data Radiologist's Impression: Radiology results as stated below per my review and the radiologist's interpretation: XR chest 1V portable HISTORY: weakness COMPARISON: Chest 12/05/2018. FINDINGS: Slight progression of the interstitial airspace opacities within the right lung compared to the prior study. No pneumothorax. Left lung is clear. The heart is normal in size. No pleural effusions. No pneumothorax. IMPRESSION: Slight progression of the interstitial airspace opacities within the right lung compared to the prior study. This is nonspecific and could represent an atypical pneumonitis or asymmetric pulmonary edema. Given the lack of improvement from the prior study, a follow-up chest CT can be performed for further evaluation. Electronically signed by: Errol Naik M.D. 01/22/2019 1:[address] angio chest PE protocol CLINICAL HISTORY: 58 years-old Male presenting with atypical chest pain, weakness, clinical concern for pulmonary bolus. TECHNIQUE: Multidetector CT angiography of the chest was performed after administration of intravenous contrast. 3-D volumetric and/or maximum intensity projection (MIP) images were subsequently reconstructed for review. IV contrast: 120 mL of Optiray 320. One or more dose lowering techniques were used consistent with the principles of ALARA (as low as reasonably achievable), including automatic exposure control, mA or kV adjustment to individual patient size, and/or use of iterative reconstruction. COMPARISON: 02/23/2018. CT DOSE (mGy.cm): The estimated cumulative dose is 593.71 mGycm. FINDINGS: Chocolate Coater topogram: Unremarkable. Pulmonary vasculature: The study is suboptimal for the assessment of the pulmonary vascular tree secondary to respiratory motion artifact. Allowing for limited image quality, no central filling defect to suggest pulmonary embolus. Main pulmonary artery is not enlarged. No flattening of the interventricular septum. No intracardiac filling defect. No reflux of contrast into the hepatic veins. Remaining chest: Soft tissues: Normal thyroid and thoracic inlet. No axillary, supraclavicular, mediastinal, or hilar lymphadenopathy. 4 vessel aortic arch. Tortuosity of the major branch vessels of the aorta may suggest chronic hypertension. Tortuosity of the descending thoracic aorta. Normal heart size. No pericardial or pleural effusion. Redemonstration of the low density round structure adjacent to the gastric cardia and spleen measuring 2.5 cm. Resolution of prior inflammatory change. 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 Small hiatal hernia may be present. Lungs and airways: No pneumothorax. Central airways patent. Pulmonary arteries are not significantly enlarged relative to adjacent bronchi. Mild interlobular septal thickening in the right upper and lower lobes. Extensive groundglass infiltrate throughout the apical and posterior segments of the right upper lobe and all segments of the right lower lobe. The right middle lobe is largely spared apart from the dependent portions. Left lung clear. Respiratory motion artifact mildly degrades evaluation of the lung parenchyma. Musculoskeletal: Degenerative changes of the spine. IMPRESSION: 1. Allowing for suboptimal image quality, no evidence of pulmonary embolus. 2. Multifocal infiltrates in the right lung primarily in the right upper and lower lobes. This is evidence of multifocal pneumonia. 3. Additional chronic findings as above. Electronically signed by: Lam Chopra M.D. 01/22/2019 3:06 PM ECG Data Attestation: I personally reviewed and interpreted this ECG as follows: Indication: weakness Rate (beats per minute): 111 Rhythm: sinus tachycardia Findings: + LAFB and + RBBB Comparison ECG Date: from (10/13/18) Change: no significant change Blood Pressure Blood Pressure Findings: Elevated blood pressure Blood Pressure Disposition: further management by hospitalist MDM Narrative This patient was evaluated and appeared to be in no significant distress. IV access was obtained and laboratory work was drawn. The patient was placed on the groundwater monitoring technician and found to be in a sinus tachycardia. EKG confirms. Patient is noted to be afebrile with a normal WBC however the lactate is elevated. Chest x-ray is concerning for progressive interstitial opacities. Follow-up CT imaging was performed due to the persistent tachycardia and elevated lactate. This is consistent with a multifocal pneumonia. Blood cultures were obtained and the patient was treated with IV Zosyn. IV hydration was continued. Patient did remain stable and was discussed with the hospitalist service for further management. Impression & Plan Multifocal pneumonia, Sepsis Discharge Plan Visit Data *Final* Discharge Date/Time: 01/22/19 18:44 Chief Complaint: Weakness Stated Complaint: WEAKNESS ED Provider: Kristine Love Discharge Problem: Multifocal pneumonia, Sepsis Patient Disposition: Admitted As Inpatient Discharge Instructions Interventions: ED Discharge Assessment Last Done: 01/22/19 18:44 Sepsis Evaluation Sepsis screening result: No Definite Risk Current stage of sepsis: sepsis Focused Exam Vital Signs Temp Pulse Pulse Resp BP BP Pulse Ox 01/22/19 17:05 88 22 112/80 96 01/22/19 17:00 102 H 22 01/22/19 16:26 128/92 01/22/19 16:00 103 H 35 H 128/92 98 01/22/19 15:00 7 L 01/22/19 14:58 20 118/81 01/22/19 14:39 94 01/22/19 14:01 111 H 113 H 26 H 111/91 94 01/22/19 13:59 30 H 111/91 94 01/22/19 13:00 94 01/22/19 12:35 117 H 18 95 01/22/19 12:24 37.4 C 116 H 20 126/83 16 L 01/22/19 12:09 117 H 16 126/83 97 Discharge Problem: Sepsis Qualifiers: Sepsis type: sepsis due to unspecified organism Sepsis acute organ dysfunction status: without acute organ dysfunction Qualified Code(s): A41.9 - Sepsis, unspecified organism The scribe's documentation has been prepared under my direction and personally reviewed by me in its entirety. I confirm that the note above accurately reflects all work, treatment, procedures, and medical decision making performed by me.
[2019-01-22] MEDS: DIVALPROEX DELAY RELEASE 500 MG TAB PO SCH (21:02)
[2019-01-22] MEDS: BusPIRone 15 MG TAB PO SCH (21:02)
[2019-01-22] MEDS: INSULIN ASPART 100 UNITS/ML 3 ML PEN SC SCH (21:02)
[2019-01-22] MEDS: MONTELUKAST SODIUM 10 MG TABLET PO SCH (21:02)
[2019-01-22] MEDS: ZIPRASIDONE HCL 20 MG CAP PO SCH (21:02)
[2019-01-22] MEDS: ZIPRASIDONE HCL 80 MG CAP PO SCH (21:02)
[2019-01-22] MEDS: BuPROPion SR 150 MG TABCR PO SCH (21:02)
[2019-01-22] MEDS: ENOXAPARIN INJ 40 MG/0.4 ML SYR SQ SCH (21:03)
[2019-01-22] MEDS: FLUTICASONE/SALMETEROL 250/50 (ADVAIR) 14 PUFF/1 INHALER INH SCH (21:03)
[2019-01-22] MEDS: POLYETHYLENE (MIRALAX) 17 GM PACK PO SCH (21:03)
--- NOTE | 2019-01-22 22:15 | History & Physical Report ---
Date of Service January 22, 2019 Assessment & Plan (1) Multifocal pneumonia: Admit to inpatient on telemetry Vital signs every 4 hours Given Zosyn in the ER empirically for pneumonia Started ceftriaxone and doxycycline IV empirically for pneumonia inpatient Repeat lactic acid CBC CMP daily, replenish electrolytes Solu-Medrol 40 mg twice daily IV, duo nebs every 4 hours as needed for shortness of breath, fluticasone salmeterol 250/51 inhalation twice daily Follow-up blood and sputum cultures DVT prophylaxis Lovenox 40 mg SC daily Full code Present on Admission?: Yes (2) Sepsis: As the above Present on Admission?: Yes (3) Hypoglycemia: A1c pending Glycemic control per pharmacy Accu-Cheks before meals and at bedtime Present on Admission?: Yes (4) CKD (chronic kidney disease) stage 2, GFR 60-89 ml/min: Avoid nephrotoxic agents, hold pantoprazole. Present on Admission?: Yes (5) Hyponatremia: Chronic hyponatremia Continue monitoring daily Present on Admission?: Yes (6) Bipolar 1 disorder: 6 stable for now, continue divalproex home does 1000 mg p.o. every morning, and 1500 mg p.o. nightly, clonazepam 2 mg p.o. nightly as needed and 1 mg p.o. 3 times daily as needed as needed, buspirone 30 mg p.o. twice daily Present on Admission?: Yes History of Present Illness Chief Complaint: The patient is a 58 years old male with past medical history of schizophrenia affective disorder, bipolar type, sleep apnea, mitral regurgitation, lymphedema of the both lower extremities, diabetes mellitus type 2, hyperlipidemia, hypothyroidism, who presents to the emergency room with weakness beginning this morning. Patient patient states that he felt weak today and urinated his pants. He reports that he experiencing chills last night because his AC was running too long last night. The patient notes that he did not take any of his medication this morning. He states that he has caregiver during the day Saturday through Saturday otherwise he lives alone. Patient denies fever chills chest pain shortness of breath abdominal pain frequency urgency hemoptysis hematuria dysuria. Labs are reviewed: WBC 8.88, hemoglobin 16.6, hematocrit 47.7, platelets 176, sodium 132, potassium 4.1, chloride 95, BUN 15, creatinine 1.23, GFR 63.4, lactate 2.9 on admission and then repeated 2.2, magnesium 2, bilirubin 0.6, AST 49, ALT 41 BNP 284, TSH 2.82. Urine all negative, blood cultures pending x2. CTA of the chest: No evidence of pulmonary embolus, multifocal infiltrate in the right lung primary right upper and lower lobes. This is evidence of multifocal pneumonia. Decision was made to admit patient to inpatient on telemetry for multilobar pneumonia and to treat him with IV antibiotics. Primary Care Provider: Yohannes Carrillo MD Allergies Allergy/AdvReac Type Severity Reaction Status Date / Time No Known Drug Allergies Allergy Verified 01/22/19 12:35 Home Medications Home Medications Medication Instructions Recorded Confirmed Type albuterol sulfate 2 puff INHALATION QID PRN 01/26/18 01/22/19 History buspirone 30 mg PO BID 01/26/18 01/22/19 History clonazepam 1 mg PO TID PRN 01/26/18 01/22/19 History divalproex 1,000 mg PO QAM 01/26/18 01/22/19 History divalproex 1,500 mg PO HS 01/26/18 01/22/19 History furosemide 40 mg PO DAILY 01/26/18 01/22/19 History levothyroxine 175 mcg PO DAILYBB 01/26/18 01/22/19 History loratadine 10 mg PO DAILY 01/26/18 01/22/19 History loxapine succinate 100 mg PO DAILY 01/26/18 01/22/19 History ranitidine HCl 150 mg PO BID 01/26/18 01/22/19 History ziprasidone HCl 120 mg PO BID 01/26/18 01/22/19 History metformin 500 - 1,000 mg PO QPM 06/08/18 01/22/19 History aspirin [Aspir-81] 81 mg PO DAILY 07/07/18 01/22/19 History bupropion HCl 150 mg PO BID 07/07/18 01/22/19 History clonazepam 2 mg PO HS PRN 10/13/18 01/22/19 History metformin 850 mg tablet 850 mg PO HS PRN #90 tab 11/19/18 01/22/19 Rx omeprazole 20 mg capsule,delayed 20 mg PO DAILY #90 cap 11/20/18 01/22/19 Rx release montelukast 10 mg tablet 10 mg PO PM #90 tab 11/21/18 01/22/19 Rx polyethylene glycol 3350 17 17 g PO BID #238 gm 12/25/18 01/22/19 Rx gram/dose oral powder Microlet lancets #200 ea 01/07/19 01/22/19 Rx blood sugar diagnostic strips #200 ea 01/07/19 01/22/19 Rx lisinopril 10 mg tablet 10 mg PO DAILY #90 tab 01/21/19 01/22/19 Rx Past Med/Surg History Medical History Hypothyroidism (Chronic 05/20/12) Mitral regurgitation Schizoaffective disorder, bipolar type Sleep apnea Tricuspid regurgitation Diabetes Hypertension Surgical History S/P total knee arthroplasty 08/2017 Family History Unknown Diabetes Hypertension Mother Hypertension Social History Preferred Language: Bel[place]ian Communication Ability: Effective Visual Impairment: Limited Hearing Ability: Normal Protocol Officer Required: No Beliefs That Will Affect Care: None marital status: Single Current Living Situation: Alone current occupational status: unemployed Other Information That Helps Us Care for You: No Feels Safe at Home: Yes Safety Concerns: Feels Safe At This Time Smoking Status: Never smoker Second Hand Exposure: No ; Hx Alcohol Use: No Hx Substance Use: No Seatbelt Use: always Review of Systems Review of Systems: All systems reviewed & are unremarkable except as noted in HPI & below Physical Exam Constitutional: WD/WN, vitals as above well developed Eyes: PERRL, conjunctivae normal, anicteric sclerae ENMT: external ear and nose normal, oropharynx normal Neck: trachea midline, no thyromegaly Respiratory: normal respiratory effort Auscultation: + crackles (Right), + wheezes and + bronchovesicular breath sounds Cardiovascular: RRR, no murmur, no edema Vessels: brachial pulses present and popliteal pulses present Extremities: + pedal edema (Bilaterally due to chronic venous insufficiency) Chest (Breasts): normal inspection/palpation of breasts Gastrointestinal (Abdomen): normal bowel sounds, soft, nontender, no hepatosplenomegaly Musculoskeletal: no cyanosis or clubbing, extremities motor strength 5/5 Neurologic: patellar DTR's 2+ bilat, sensation intact Psychiatric: Patient behavior is odd and peculiar Lymphatic: + lymphedema Bilateral lower extremities lymphedema Results & Data Vital Signs (Past 12 Hours) Vital Signs Temp Pulse Pulse Resp BP BP Pulse Ox 01/22/19 19:40 36.9 C 99 H 20 130/87 94 01/22/19 18:54 36.7 C 96 H 20 118/81 96 01/22/19 18:47 99 H 22 114/81 96 01/22/19 18:44 95 H 20 118/74 96 01/22/19 18:00 95 H 95 H 20 118/79 97 01/22/19 17:05 88 22 112/80 96 01/22/19 17:00 102 H 22 01/22/19 16:26 128/92 01/22/19 16:00 103 H 35 H 128/92 98 01/22/19 15:00 7 L 01/22/19 14:58 20 118/81 01/22/19 14:39 94 01/22/19 14:01 111 H 113 H 26 H 111/91 94 01/22/19 13:59 30 H 111/91 94 01/22/19 13:00 94 01/22/19 12:35 117 H 18 95 01/22/19 12:24 37.4 C 116 H 20 126/83 16 L 01/22/19 12:09 117 H 16 126/83 97 Code Status & VTE Plan Code Status Full code VTE Prophylaxis Plan VTE Prophylaxis will be ordered: Yes PG Care Time/CCT Total # of Minutes Spent Total Time Spent with Patient: Total time spent is greater than 50% in coordination of care (as documented) at patient's floor/unit and/or counseling patient: (1) Sepsis Sepsis acute organ dysfunction status: without acute organ dysfunction Sepsis type: sepsis due to unspecified organism Qualified Code(s): A41.9 - Sepsis, unspecified organism
[2019-01-22] MEDS: clonazePAM 1 MG TAB PO PRN (22:16)
[2019-01-23] MEDS: INSULIN ASPART 100 UNITS/ML 3 ML PEN SC SCH ×6 (00:07→20:44)
[2019-01-23] MEDS: LEVOTHYROXINE SODIUM 175 MCG TABLET PO SCH (06:26)
[2019-01-23 06:55] LABS: Estimated Average Glucose 111 mg/dl; Hemoglobin A1C 5.5 % (4.5-5.6)
[2019-01-23 07:10] LABS: Albumin Level 2.8 gm/dl (3.4-5.0); BUN Creatinine Ratio 10.2 (10-20); Calcium 8.8 mg/dl (8.5-10.1); Creatinine Clr Calc Pharmacy 71.5 ml/min; Est GFR (African American) 78.1; Est GFR (Non-African American) 67.4; Potassium 4.6 mmol/L (3.5-5.1)
[2019-01-23 07:13] LABS: Albumin Globulin Ratio 0.8 (0.9-2); Bilirubin,Total 0.4 mg/dl (0.2-1); Globulin 3.7 gm/dl (2.5-4.0); Total Protein 6.5 gm/dl (6.4-8.2)
[2019-01-23 07:15] LABS: Hematocrit (blood only) 44.6 % (42-52); Hemoglobin 14.8 g/dL (14.0-18.0); Immature Granulocytes # (auto) 0.03 K/uL (0.00-0.02); Immature Granulocytes % (auto) 0.3 %; Lymphocytes # (auto) 1.05 K/uL (1.2-3.4); Lymphocytes % (auto) 8.8 %; Mean Corpuscular Hemoglobin 29.6 pg (25-34); Mean Corpuscular Hgb Conc 33.2 g/dL (32-36); Mean Corpuscular Volume 89.2 fL (80-100); Mean Platelet Volume 9.4 fL (7.4-10.4); Monocytes # (auto) 0.48 K/uL (0.11-0.59); Neutrophils # (auto) 10.44 K/uL (1.4-6.5); Neutrophils % (auto) 86.9 %; Platelet Count 189 K/uL (130-400); RDW Coefficient of Variation 14.8 % (11.5-14.5); RDW Standard Deviation 47.6 fL (36.4-46.3)
[2019-01-23] MEDS: POLYETHYLENE (MIRALAX) 17 GM PACK PO SCH ×2 (08:31→19:43)
[2019-01-23] MEDS: FLUTICASONE/SALMETEROL 250/50 (ADVAIR) 14 PUFF/1 INHALER INH SCH ×2 (08:31→20:11)
[2019-01-23] MEDS: ZIPRASIDONE HCL 80 MG CAP PO SCH ×2 (08:31→20:11)
[2019-01-23] MEDS: methylPREDNISolone 40 MG in SYRINGE 0 ML IV SCH ×2 (08:31→20:13)
[2019-01-23] MEDS: DIVALPROEX DELAY RELEASE 500 MG TAB PO SCH ×2 (08:32→20:10)
[2019-01-23] MEDS: BusPIRone 15 MG TAB PO SCH ×2 (08:32→20:12)
[2019-01-23] MEDS: FUROSEMIDE 40 MG TAB PO SCH (08:32)
[2019-01-23] MEDS: lisinopriL 10 MG TAB PO SCH (08:32)
[2019-01-23] MEDS: ZIPRASIDONE HCL 20 MG CAP PO SCH ×2 (08:32→20:10)
[2019-01-23] MEDS: LORATADINE 10 MG TAB PO SCH (08:32)
[2019-01-23] MEDS: BuPROPion SR 150 MG TABCR PO SCH ×2 (08:32→20:12)
[2019-01-23] MEDS: ASPIRIN 81 MG ECTAB PO SCH (08:32)
[2019-01-23] MEDS: DOXYCYCLINE HYCLATE 100 MG in DEXTROSE 5% 100 ML IV SCH ×2 (08:48→21:09)
[2019-01-23] MEDS ORDERED: PANTOprazole 40 MG TAB PO SCH (09:00)
[2019-01-23] MEDS ORDERED: methylPREDNISolone 40 MG in SYRINGE 0 ML IV SCH (09:00)
--- NOTE | 2019-01-23 12:30 | Pharmacy Report ---
Pharmacy Glycemic Short Note 2 - Date of Service January 23, 2019 - Glycemic Short BSG Results (Last 24 hours): 01/22/19 01/22/19 01/22/19 13:29 20:33 20:52 Glucose 97 POC Glucose 68 L* 57 L* 01/22/19 01/22/19 01/23/19 21:15 23:58 04:08 Glucose POC Glucose 80 162 H 128 H 01/23/19 01/23/19 01/23/19 05:54 07:29 11:33 Glucose 143 H POC Glucose 116 H 137 H OUTPATIENT ANTIDIABETIC REGIMEN: * Metformin 850mg PO PRN high blood sugar * HbA1c: 5.5% (01/23/19) ASSESSMENT: * Mr Wong is a 58yo diabetic male admitted with pna. * Patient is receiving IV Rocephin/Doxycycline and is also being treated with SoluMedrol 40mg IV BID. This is expected to contribute to significant steroid-induced hyperglycemia. * Thus far, BSGs have been quite well-controlled and have not required the use of any insulin, despite steroid therapy. * Will maintain Novolog orders to provide correction, should patient become hyperglycemic. Will keep carb ratio quite conservative. Patient has been refusing carb coverage so far, which is fine. It can be utilized if necessary in the event that BSGs rise. PLAN FOR INPATIENT GLYCEMIC CONTROL: * Hold outpatient oral diabetes medications * Basal insulin * none at this time * Bolus insulin * NovoLog per scale ACHS or Q6hrs while NPO * Goal Range: Low 110 mg/dL - High 140 mg/dL * Correction Factor: 30 mg/dL/unit * Nutritional / Prandial insulin per carb ratio of 1 unit per 20 grams CHO consumed PLAN FOR DISCHARGE: * Patient's A1c (5.5%) indicates extremely well-controlled glycemic mgmt as an outpatient. * Expect that patient may resume home regimen on discharge. * If patient will be discharged on steroids, would recommend more frequent SMBG.
[2019-01-23] MEDS: cefTRIAXone SODIUM 2,000 MG/70 ML BAG IV SCH (19:56)
[2019-01-23] MEDS: MONTELUKAST SODIUM 10 MG TABLET PO SCH (20:12)
[2019-01-23] MEDS: ENOXAPARIN INJ 40 MG/0.4 ML SYR SQ SCH (20:13)
--- NOTE | 2019-01-23 21:48 | Hospitalist Progress Note ---
Date of Service January 23, 2019 Assessment & Plan (1) Multifocal pneumonia: RUL/RLL. Remains on rocephin/zithromax. Blood cx's negative to date. Patient looks great. Can likely transition to PO abx tomorrow. Will have speech therapy see to ensure no dysphagia. (2) Sepsis: 2nd to pneumonia - resolving. Blood cx's negative to date. (3) Hypoglycemia: a1c 5.5% on metformin daily at home hypoglycemia likely due to stress of infection (4) CKD (chronic kidney disease) stage 2, GFR 60-89 ml/min: Avoid nephrotoxic agents BMP am for stability (5) Hyponatremia: Chronic hyponatremia - SIADH? BMP am for stability but thus far levels are acceptable (6) Bipolar 1 disorder: continue divalproex 1000 mg p.o. every morning, and 1500 mg p.o. nightly continue clonazepam prn continue buspirone 30 mg p.o. twice daily (7) Asthma: with exacerbation on steroids not much in way of wheezing wean steroids home tomorrow? Subjective tele stable overnight. feels "great" and says "can I go home today?" no fevers, chills, cough. eating well. no complaints - he says "I'm back to normal." denies dysphagia. Review of Systems Constitutional: no fever, no chills, no fatigue and no anorexia Cardiovascular: no chest pain Gastrointestinal: no abdominal pain, no nausea and no vomiting Physical Exam Constitutional: well developed, well nourished and + well hydrated; no acute distress and no altered mental status ENMT: external ear and nose normal, oropharynx normal Respiratory: no respiratory distress Auscultation: + crackles (right base); no wheezes Cardiovascular: Rate/Rhythm: regular rate and regular rhythm Heart Sounds: normal S1 and normal S2; no murmur Vessels: posterior tibial pulses present and dorsalis pedis pulses present; no JVD Extremities: no edema Gastrointestinal (Abdomen): normal bowel sounds, soft, nontender, no hepatosplenomegaly Psychiatric: Orientation: alert and oriented x 3 Results & Data Vital Signs (Past 12 Hours) Vital Signs Temp Pulse Pulse Pulse Resp BP Pulse Ox 01/23/19 20:08 36.4 C L 102 H 18 123/77 93 01/23/19 15:15 36.4 C L 95 H 19 107/71 91 01/23/19 14:59 103 H 01/23/19 11:29 36.6 C 87 22 136/87 93 PG Care Time/CCT Total # of Minutes Spent Total Time Spent with Patient: Total time spent is greater than 50% in coordination of care (as documented) at patient's floor/unit and/or counseling patient: (1) Sepsis Sepsis acute organ dysfunction status: without acute organ dysfunction Sepsis type: sepsis due to unspecified organism Qualified Code(s): A41.9 - Sepsis, unspecified organism (2) Asthma Asthma severity: unspecified severity Asthma persistence: unspecified Asthma complication type: unspecified Qualified Code(s): J45.909 - Unspecified asthma, uncomplicated
[2019-01-24] MEDS: clonazePAM 1 MG TAB PO PRN (03:22)
[2019-01-24] MEDS: LEVOTHYROXINE SODIUM 175 MCG TABLET PO SCH (05:46)
[2019-01-24 06:27] LABS: Hematocrit (blood only) 40.4 % (42-52); Hemoglobin 13.5 g/dL (14.0-18.0); Immature Granulocytes # (auto) 0.03 K/uL (0.00-0.02); Immature Granulocytes % (auto) 0.2 %; Mean Corpuscular Hemoglobin 29.7 pg (25-34); Mean Corpuscular Hgb Conc 33.4 g/dL (32-36); Mean Platelet Volume 9.8 fL (7.4-10.4); Monocytes # (auto) 0.81 K/uL (0.11-0.59); Monocytes % (auto) 5.2 %; Neutrophils # (auto) 12.92 K/uL (1.4-6.5); Neutrophils % (auto) 83.6 %; Platelet Count 201 K/uL (130-400); RDW Coefficient of Variation 14.8 % (11.5-14.5); RDW Standard Deviation 48.3 fL (36.4-46.3); Red Blood Count 4.54 M/uL (4.7-6.1); White Blood Count 15.46 K/uL (4.8-10.8)
[2019-01-24 07:08] LABS: Albumin Level 2.6 gm/dl (3.4-5.0); BUN Creatinine Ratio 14.1 (10-20); Calcium 8.4 mg/dl (8.5-10.1); Creatinine Clr Calc Pharmacy 88.1 ml/min; Est GFR (African American) 100.4; Est GFR (Non-African American) 86.7; Potassium 4.3 mmol/L (3.5-5.1)
[2019-01-24 07:11] LABS: Albumin Globulin Ratio 0.8 (0.9-2); Bilirubin,Total 0.2 mg/dl (0.2-1); Globulin 3.4 gm/dl (2.5-4.0)
[2019-01-24] MEDS: BusPIRone 15 MG TAB PO SCH (07:51)
[2019-01-24] MEDS: LORATADINE 10 MG TAB PO SCH (07:52)
[2019-01-24] MEDS: DIVALPROEX DELAY RELEASE 500 MG TAB PO SCH (07:52)
[2019-01-24] MEDS: ASPIRIN 81 MG ECTAB PO SCH (07:53)
[2019-01-24] MEDS: ZIPRASIDONE HCL 80 MG CAP PO SCH (07:53)
[2019-01-24] MEDS: POLYETHYLENE (MIRALAX) 17 GM PACK PO SCH (07:54)
[2019-01-24] MEDS: ZIPRASIDONE HCL 20 MG CAP PO SCH (07:54)
[2019-01-24] MEDS: FUROSEMIDE 40 MG TAB PO SCH (07:54)
[2019-01-24] MEDS: methylPREDNISolone 40 MG in SYRINGE 0 ML IV SCH (07:54)
[2019-01-24] MEDS: BuPROPion SR 150 MG TABCR PO SCH (07:55)
[2019-01-24] MEDS: lisinopriL 10 MG TAB PO SCH (07:55)
[2019-01-24] MEDS: FLUTICASONE/SALMETEROL 250/50 (ADVAIR) 14 PUFF/1 INHALER INH SCH (07:55)
[2019-01-24] MEDS: INSULIN ASPART 100 UNITS/ML 3 ML PEN SC SCH (07:56)
[2019-01-24] MEDS: DOXYCYCLINE HYCLATE 100 MG in DEXTROSE 5% 100 ML IV SCH (07:59)
--- NOTE | 2019-01-24 09:37 | XRay Report ---
XR chest 2V routine HISTORY: right sided pneumonia, worsening leukocytosis COMPARISON: Chest CTA 01/23/2016. FINDINGS: No pleural effusions. No pneumothorax. Interval improvement in the hazy right lung airspace opacities. The left lung is clear. The heart is normal in size. Tortuous thoracic aorta. Old, healed right-sided rib fractures. IMPRESSION: Interval improvement in the right lung airspace opacities consistent with a resolving pneumonia. Electronically signed by: Errol Naik M.D. 01/24/2019 9:35 AM
--- NOTE | 2019-01-24 10:50 | Discharge Summary ---
Date of Service date of admission - January 22, 2019 date of discharge - January 24, 2019 Admission HPI Per Admitting Provider The patient is a 58 year old male with past medical history of schizophrenia affective disorder, bipolar type, sleep apnea, mitral regurgitation, lymphedema of the both lower extremities, diabetes mellitus type 2, hyperlipidemia, hypothyroidism, who presents to the emergency room with weakness beginning this morning. Patient patient states that he felt weak today and urinated his pants. He reports that he experiencing chills last night because his air conditioner was running too long last night. The patient notes that he did not take any of his medication this morning. He states that he has a caregiver during the day Saturday through Saturday otherwise he lives alone. Principal Diagnosis multifocal pneumonia Discharge Exam Constitutional well developed and well nourished; no acute distress and no altered mental status ENMT external ear and nose normal, oropharynx normal Respiratory no respiratory distress Auscultation: + crackles (right base); no wheezes Cardiovascular Rate/Rhythm: regular rate and regular rhythm Heart Sounds: normal S1 and normal S2; no murmur Vessels: posterior tibial pulses present and dorsalis pedis pulses present; no JVD Extremities: no edema Gastrointestinal (Abdomen) normal bowel sounds, soft, nontender, no hepatosplenomegaly Psychiatric A+Ox3, euthymic affect Discharge Data Allergies Allergy/AdvReac Type Severity Reaction Status Date / Time No Known Drug Allergies Allergy Verified 01/22/19 12:35 Consultations speech therapy Ordered Studies CTA chest - IMPRESSION: 1. Allowing for suboptimal image quality, no evidence of pulmonary embolus. 2. Multifocal infiltrates in the right lung primarily in the right upper and lower lobes. This is evidence of multifocal pneumonia. Hospital Course (1) Multifocal pneumonia: RUL/RLL. Received rocephin/zithromax IV then was transitioned to oral augmentin at discharge. Blood cx's negative while hospitalized. This was either a community-acquired pneumonia vs aspiration. Speech therapy saw patient in consult and did well on bedside evaluation. However, outpatient video swallow test to look for silent aspiration advised. (2) Sepsis: 2nd to pneumonia - resolved. Blood cx's negative to date. (3) Hypoglycemia: a1c 5.5% on metformin daily at home hypoglycemia likely due to stress of infection (4) CKD (chronic kidney disease) stage 2, GFR 60-89 ml/min: Cr ranged 0.9 to 1.2 during the visit. (5) Hyponatremia: Chronic hyponatremia - SIADH? Discharge Na level was 134 which is at baseline for him. (6) Bipolar 1 disorder: continue divalproex 1000 mg p.o. every morning, and 1500 mg p.o. nightly continue clonazepam prn continue buspirone 30 mg p.o. twice daily (7) Asthma: with mild exacerbation. received IV steroids during the hospitalization but steroids discontinued at discharge as his lung exam, with exception of focal RLL rales, was normal. Total Time Total Time Spent Total Time Spent (In Minutes): 25 Total Time Includes: Examination of the Patient, Discharge Planning, Medication Reconciliation and Communication With Other Providers Discharge Plan Discharge Items Patient Disposition: Home - Self-Care Reason For Visit: HYPOTENSION (blood pressure),GENERALIZED WEAKNESS Discharge Diagnosis: right-sided pneumonia - improved Goals: 1. treat pneumonia 2. treat asthma Activity: Resume your previous activity Exercise/Sports: Gradually increase as tolerated Non-emergency contact: Primary Care Provider Call non-emergency contact if: you have any medication questions, your symptoms worsen and you have a fever Follow-up/Referrals: Yohannes Carrillo MD [Primary Care Provider] - (see Dr Carrillo within 5 days) Diet: Carb Consistent or DM2 and Heart Healthy Addtl Attending Provider Instructions: You were treated for right-sided pneumonia. You improved rapidly with IV antibiotics. Your blood cultures were negative (no evidence of blood stream infection). Your other labs were normal. Recommendations - 1. take amoxicillin-clavulanate antibiotic twice a day for 5 days; start this TONIGHT. 2. take probiotics daily for 1 week. 3. consider outpatient video swallow test with speech therapy to ensure you are not swallowing liquid into your lungs; Dr Carrillo can refer you for this. Return to [facility] if -- * you have fevers over 100.5 degrees * you have worsening breathing (shortness of breath) * you have chest pains * you have severe weakness * you develop severe diarrhea * any other concerns Pending Studies at Discharge: Yes Studies:: blood cultures but thus far negative Stand-Alone Forms: My [facility] Medications and DC Order Prescriptions: Continued metformin 850 mg tablet 850 mg PO HS PRN (Reason: IF BSG HIGH) Qty: 90 RF: 3 omeprazole 20 mg capsule,delayed release(DR/EC) 20 mg PO DAILY Qty: 90 RF: 3 montelukast 10 mg tablet 10 mg PO PM Qty: 90 RF: 3 polyethylene glycol 3350 17 gram/dose powder 17 g PO BID Qty: 238 RF: 3 Accu-Chek Guide strip .ROUTE .MEDSUPPLY Qty: 200 RF: 1 lancets [Accu-Chek Fastclix Lancet Drum] misc .ROUTE .MEDSUPPLY Qty: 200 RF: 1 lisinopril 10 mg tablet 10 mg PO DAILY Qty: 90 RF: 3 metformin 500 mg tablet 500 - 1,000 mg PO QPM RF: 0 clonazepam 1 mg Tablet 2 mg PO HS PRN (Reason: RESTLESSNESS) RF: 0 ziprasidone HCl 80 mg Capsule 120 mg PO BID RF: 0 furosemide 40 mg Tablet 40 mg PO DAILY RF: 0 levothyroxine 175 mcg Tablet 175 mcg PO DAILYBB RF: 0 clonazepam 1 mg Tablet 1 mg PO TID PRN (Reason: Anxiety) RF: 0 divalproex 500 mg Tablet,Delayed Release (Dr/Ec) 1,000 mg PO QAM RF: 0 divalproex 500 mg Tablet,Delayed Release (Dr/Ec) 1,500 mg PO HS RF: 0 buspirone 30 mg Tablet 30 mg PO BID RF: 0 ranitidine HCl 150 mg Capsule 150 mg PO BID RF: 0 albuterol sulfate 90 mcg/actuation Hfa Aerosol Inhaler 2 puff INHALATION QID PRN (Reason: Shortness Of Breath) RF: 0 loratadine 10 mg Tablet 10 mg PO DAILY RF: 0 loxapine succinate 50 mg Capsule 100 mg PO DAILY RF: 0 aspirin [Aspir-81] 81 mg Tablet,Delayed Release (Dr/Ec) 81 mg PO DAILY RF: 0 bupropion HCl 100 mg Tablet Sustained-Release 12 Hr 150 mg PO BID RF: 0 Discharge Orders: Discharge Order (Routine); Ordered 01/24/19 Ordered By: Rd Kowalski Admission Data Admit Date/Time: 01/22/19 17:55 Attending Provider: Rd Kowalski Admit Provider: Nesha Walker Primary Care Provider: Yohannes Carrillo Other Interventions: Discharge Summary Assessment (RN) Last Done: 01/24/19 10:53 DC Date/Time DO NOT enter until pt leaves facility: 01/24/19 13:27
== END 2019-01-24 13:27 | disposition home or self-care (01) | DRG 871 ==
LOC: ED 12:07 → SUATTDRO 17:55 → 2S 17:55

== ENCOUNTER 2020-06-04 08:57 | Observation (INO) ==
--- NOTE | 2020-06-04 09:10 | Emergency Department Note ---
Impression & Plan Community acquired pneumonia, Hypoxia, Acute hyponatremia, Hypomagnesemia ED Provider Note NAME: LOU COLON AGE: 60 SEX: M ARRIVES VIA: Ambulance INFORMANT: Patient, ED PROVIDER(S): Kamari Quintana MD CHIEF COMPLAINT: Fever, Shortness of breath. PLAN: Disposition: Admit MEDICAL DECISION MAKING: The patient is a pleasant 60-year-old gentleman with a past medical history of asthma, bipolar disorder, schizophrenia, hypertension, hyperlipidemia, type 2 diabetes, chronic peripheral venous insufficiency, GERD, CKD who presents so ency department with acute onset fevers, cough and shortness of breath with associated body aches that began this morning in the setting of receiving his first COVID-19 immunization on Saturday. Prior to this morning the patient reports he has been feeling well and had denied any symptoms preceding this morning. He reports feeling lightheaded. He denies nausea, vomiting, diarrhea, urinary symptoms. He denies chest pain or headache. On arrival the patient is ill-appearing, febrile to 38.8 with heart in the 100s, blood pressure stable with mild dyspnea and tachypnea in the mid 20s with mild work of breathing but no acute distress. Despite the patient's chronic lymphedema he does appear clinically dry. He has scattered wheezes on lung exam. Abdomen is benign. EKG without overt acute ischemia. Chest x-ray does demonstrate right upper lobe infiltrate consistent with pneumonia. WBC 11. H/H and platelets within normal limits. Chemistry without metabolic acidosis. Creatinine 1.38 within prior range of values. Sodium 128 which, given the patient's serum and urine osmolality may represent a component of polydipsia. Initial lactate 2.3 which improved to normal range at 1.7 following IV fluid hydration. Magnesium 1.7 with repletion provided. Troponin negative/undetectable. BNP within normal limits. Lipase is not elevated. Procalcitonin 0.1, making sepsis less likely. Valproic acid level within normal range. COVID-19 PCR was negative. Influenza and RSV PCR also negative. Patient did feel some improvement after IV fluid hydration, dexamethasone, Mucinex, Combivent. His work of breathing did improve. However patient's O2 saturation did go down to 91% and was placed on 2 L nasal cannula. Given the patient's presentation with increased work of breathing and mild hypoxia reasonable to admit the patient for further management for his pneumonia. Patient was ordered for CAP coverage with ceftriaxone and doxycycline. Case was discussed with HILARY Garcia hospitalist, who will evaluate the patient for admission. Triage Nursing notes reviewed and agree them. Prior medical records reviewed Vital Signs: reviewed and remarkable for tachycardia/hypoxia. Differential diagnosis: Viral syndrome, otitis, pharyngitis, pneumonia, influenza, meningitis, urinary tract infection, sepsis, bacteremia, as well as other pathologies. ER treatment provided: See below. Diagnostics interpreted by me: ECG: Sinus tachycardia, 105 bpm, no ectopy, first-degree AV block, right bundle branch block, left anterior fascicular block, no overt ST elevation. Similar to January 23, 2019. Cardiac Monitoring: An order for continuous cardiac monitoring was placed and demonstrated Sinus tachycardia, 105 bpm, no ectopy. Laboratory studies: See below Imaging studies: XR chest 1V portable HISTORY: SEPSIS COMPARISON: Chest 05/27/2019. FINDINGS: Rotated study. No pneumothorax. No pleural effusions. The heart is normal in size. There is a tortuous thoracic aorta, unchanged. Small hiatus hernia is also unchanged. The left lung appears clear. There is a new focal right upper lobe airspace opacity. IMPRESSION: A new focal right upper lobe airspace opacity. This is consistent with a pneumonia. ACT 112: Negative or not required by law. Electronically signed by: Errol Naik M.D. 06/04/2020 10:15 AM Consultation(s): Case was discussed with HILARY Garcia hospitalist, who will evaluate the patient for admission. HPI: The patient is a pleasant 60-year-old gentleman with a past medical history of asthma, bipolar disorder, schizophrenia, hypertension, hyperlipidemia, type 2 diabetes, chronic peripheral venous insufficiency, GERD, CKD who presents emergency department with acute onset fevers, cough and shortness of breath with associated body aches that began this morning in the setting of receiving his first COVID-19 immunization on Saturday. Prior to this morning the patient reports he has been feeling well and had denied any symptoms preceding this morning. He reports feeling lightheaded. He denies nausea, vomiting, diarrhea, urinary symptoms. He denies chest pain or headache. ROS: See above HPI for pertinent positives & negatives. A total of 10 systems reviewed and were otherwise negative. PAST MEDICAL HISTORY:See Below PAST SURGICAL HISTORY:See Below FAMILY HISTORY:See Below SOCIAL HISTORY:See Below HOME MEDICATIONS:See Below ALLERGIES:See Below VITALS:See Below PHYSICAL EXAMINATION: GENERAL: Awake, alert, ill-appearing, in no distress HENT: Normocephalic, atraumatic. Oropharynx dry/cracked mucous membranes.. EYES: Normal conjunctiva. Sclera non-icteric. NECK: Supple. No nuchal rigidity. FROM. No JVD. RESPIRATORY: Scattered wheezes. CARDIAC: Tachycardic rate, normal rhythm. Extremities warm and well perfused. Pulses equal. ABDOMEN: Soft, non-distended. No tenderness to palpation. No rebound or guardin g. No masses. RECTAL: Deferred. MUSCULOSKELETAL: Chest examination reveals no tenderness. The back is symmetrical on inspection without obvious abnormality. There is no CVA tenderness to palpation. No joint edema. LOWER EXTREMITIES: Calves are equal size bilaterally and non-tender. 2+ bilateral lower extremity edema. No discoloration. NEURO: Normal sensorium. No sensory or motor deficits noted. SKIN: No rash or jaundice noted. Kamari Quintana MD Past Med/Surg History Medical History Asthma USES RES. INH DAILY Bipolar 1 disorder STABLE PER PATIENT CKD (chronic kidney disease) PT STATES HE HAS THIS BUT UNSURE OF DETAILS- DOESNT FOLLOW WITH ANYONE Facial basal cell cancer REMOVED GERD (gastroesophageal reflux disease) Hearing deficit History of pneumonia Hyperlipidemia Hypertension Hypothyroidism (05/20/12) Mitral regurgitation - FOLLOWS WITH PCP THROUGH [facility] [place] Osteoarthritis Right bundle branch block with left anterior fascicular block Schizoaffective disorder, bipolar type Sleep apnea NO CPAP-DOES NOT FOLLOW WITH ANYONE Tricuspid regurgitation Urinary incontinence Surgical History History of colonoscopy History of esophagogastroduodenoscopy (EGD) History of tonsillectomy History of total knee replacement BILAT S/P total knee arthroplasty 08/2017 Family History Unknown Hypertension Mother Hypertension Sister Diabetes Denies family history of Ovarian cancer Prostate cancer Myocardial infarction Breast cancer Colorectal cancer Social History Smoking Status: Unknown if ever smoked Second Hand Exposure: Yes (IN PAST); Hx Alcohol Use: No Hx Substance Use: No Preferred Language: German Communication Ability: Effective Visual Impairment: Limited Hearing Ability: Normal Die Forger Required: No Beliefs That Will Affect Care: None marital status: Single Current Living Situation: Alone current occupational status: unemployed How many Children do You have: 0 Other Information That Helps Us Care for You: No Feels Safe at Home: Yes Safety Concerns: Feels Safe At This Time Seatbelt Use: always Assistive Devices: Glasses and Walker Allergies Allergies Allergy/AdvReac Type Severity Reaction Status Date / Time No Known Drug Allergies Allergy Unknown Unknown Verified 05/28/19 15:17 Home Meds Home Medications Medication Instructions Recorded Confirmed buspirone 30 mg PO BID 01/26/18 06/04/20 ziprasidone HCl 80 mg PO BID 01/26/18 06/04/20 clonazepam 1 mg PO UD 05/27/19 06/04/20 divalproex 1,000 mg PO QAM 05/27/19 06/04/20 divalproex 1,500 mg PO QPM 05/27/19 06/04/20 ziprasidone HCl 40 mg PO BID 05/27/19 06/04/20 metformin 500 mg PO BID 06/04/20 06/04/20 perphenazine 8 mg PO BID 06/04/20 06/04/20 polyethylene glycol 3350 17 g PO BID 06/04/20 06/04/20 potassium chloride [Klor-Con M20] 20 meq PO BID 06/04/20 06/04/20 pravastatin 20 mg PO HS 06/04/20 06/04/20 Previous Rx's Medication Instructions Recorded loratadine 10 mg tablet 10 mg PO QAM #90 tab 05/27/19 incontinence pad, liner, disp #180 ea 06/11/19 albuterol sulfate 90 mcg/actuation 2 puff INHALATION QID PRN #18 gm 06/24/19 aerosol inhaler blood-glucose meter #1 ea 07/06/19 fluticasone propionate 50 1 - 2 sprays INTNAS DAILY #16 gm 07/16/19 mcg/actuation nasal spray,suspension montelukast 10 mg tablet 10 mg PO PM #90 tab 07/21/19 famotidine 20 mg tablet 20 mg PO BID #180 tab 08/05/19 furosemide 40 mg tablet 40 mg PO DAILY #90 tab 08/19/19 aspirin 81 mg tablet,delayed 81 mg PO QAM #90 tab 09/07/19 release lisinopril 10 mg tablet 10 mg PO QAM #90 tab 11/02/19 omeprazole 20 mg capsule,delayed 20 mg PO QAM #90 cap 11/05/19 release blood sugar diagnostic #100 ea 04/14/20 levothyroxine 50 mcg tablet 175 mcg PO QAM #135 tab 05/02/20 lancets 33 gauge #100 ea 05/19/20 Results & Data (ED) Vital Signs Vital Signs - 24 hr 06/04/20 09:03 06/04/20 09:15 06/04/20 09:30 Temperature 38.8 C H Temperature Source Oral Pulse Rate 107 H 104 H 104 H Pulse Rate [Apical] Pulse Rate from SpO2 Sensor 104 H 104 H Pulse Rhythm Regular Respiratory Rate 20 23 24 Respiratory Pattern Regular Blood Pressure 155/90 H 170/90 H 139/92 Blood Pressure [Left Arm] Blood Pressure Mean 111 116 107 Blood Pressure Mean [Left Arm] Pulse Oximetry 94 92 91 Oxygen Delivery Method Room Air Sepsis Recent Fever Within 48 Hours Yes Sepsis New/Unexplained Change in Mental Status No Sepsis Action Taken by Nursing No Action Required 06/04/20 09:34 06/04/20 10:15 06/04/20 10:30 Temperature Temperature Source Pulse Rate 100 H 99 H Pulse Rate [Apical] Pulse Rate from SpO2 Sensor 100 H 98 H Pulse Rhythm Respiratory Rate 22 23 Respiratory Pattern Blood Pressure 161/97 H 136/90 Blood Pressure [Left Arm] Blood Pressure Mean 118 105 Blood Pressure Mean [Left Arm] Pulse Oximetry 95 94 92 Oxygen Delivery Method Room Air Sepsis Recent Fever Within 48 Hours Sepsis New/Unexplained Change in Mental Status Sepsis Action Taken by Nursing 06/04/20 12:29 Temperature Temperature Source Pulse Rate Pulse Rate [Apical] 96 H Pulse Rate from SpO2 Sensor Pulse Rhythm Respiratory Rate 20 Respiratory Pattern Blood Pressure Blood Pressure [Left Arm] 134/75 Blood Pressure Mean Blood Pressure Mean [Left Arm] 94 Pulse Oximetry 95 Oxygen Delivery Method Room Air Sepsis Recent Fever Within 48 Hours Sepsis New/Unexplained Change in Mental Status Sepsis Action Taken by Nursing Laboratory Data Attestation: I reviewed the patient's lab results. Result diagrams: 06/04/20 09:08 06/04/20 09:08 Lab Results 06/04/20 06/04/20 06/04/20 Range/Units 09:08 09:08 09:08 WBC 11.00 H (4.8-10.8) K/uL RBC 5.56 (4.7-6.1) M/uL Hgb 15.9 (14.0-18.0) g/dL Hct 46.8 (42-52) % MCV 84.2 (80-100) fL MCH 28.6 (25-34) pg MCHC 34.0 (32-36) g/dL RDW Std Deviation 44.2 (36.4-46.3) fL RDW Coeff of Joey 14.3 (11.5-14.5) % Plt Count 207 (130-400) K/uL MPV 8.9 (7.4-10.4) fL Immature Gran % (Auto) 0.4 % Neut % (Auto) 79.9 % Lymph % (Auto) 12.3 % [place]assen % (Auto) 6.6 % Eos % (Auto) 0.7 % Baso % (Auto) 0.1 % Neut # (Auto) 8.79 H (1.4-6.5) K/uL Lymph # (Auto) 1.35 (1.2-3.4) K/uL [place] # (Auto) 0.73 H (0.11-0.59) K/uL Eos # (Auto) 0.08 (0-0.5) K/uL Baso # (Auto) 0.01 (0-0.2) K/uL Immature Gran # (Auto) 0.04 H (0.00-0.02) K/uL PT 10.0 (9.0-12.0) Seconds INR 1.0 (0.9-1.1) APTT 27.1 (21.0-31.0) Seconds PTT Ratio 1.0 VBG pH (7.36-7.41) VBG pCO2 (38-50) mmHg VBG pO2 mmHg VBG HCO3 mmol/L VBG O2 Saturation % VBG Base Excess mEq/L Barometric Pressure mm/Hg Sodium 128 L (136-145) mmol/L Potassium 4.1 (3.5-5.1) mmol/L Chloride 92 L (98-107) mmol/L Carbon Dioxide 28 (21-32) mmol/L Anion Gap 7.0 (3-11) BUN 15 (7-18) mg/dl Creatinine 1.38 (0.6-1.4) mg/dl Est Cr Clr Drug Dosing Not Reportable Est GFR ( Amer) 63.1 Est GFR (Non-Af Amer) 54.4 BUN/Creatinine Ratio 10.9 (10-20) Glucose 109 H (70-99) mg/dl POC Glucose (70-99) mg/dl Osmolality (280-300) mOsm/kg Lactate (0.4-2.0) mmol/L Calcium 9.4 (8.5-10.1) mg/dl Phosphorus 2.6 (2.5-4.9) mg/dl Magnesium 1.7 L (1.8-2.4) mg/dl Total Bilirubin 0.4 (0.2-1) mg/dl Direct Bilirubin 0.1 (0-0.2) mg/dl AST 15 (15-37) U/L ALT 25 (12-78) U/L Alkaline Phosphatase 73 (45-117) U/L Troponin I < 0.015 (0-0.045) ng/ml NT-Pro-B Natriuret Pep 34 (0-900) pg/ml Total Protein 7.1 (6.4-8.2) gm/dl Albumin 3.5 (3.4-5.0) gm/dl Globulin 3.6 (2.5-4.0) gm/dl Albumin/Globulin Ratio 1.0 (0.9-2) Lipase 164 (73-393) U/L Procalcitonin (0-0.5) ng/ml Urine Color Urine Appearance (Clear) Urine pH (4.5-7.5) Ur Specific [place] (1.000-1.030) Urine Protein (Negative) Urine Glucose (UA) (Negative) Urine Ketones (Negative) Urine Blood (Negative) Urine Nitrite (Negative) Urine Bilirubin (Negative) Urine Urobilinogen (Negative) Ur Leukocyte Esterase (Negative) Urine Osmolality (500-800) mOsm/kg Ur Random Sodium mmol/L Valproic Acid (50-100) mcg/ml COVID-19 Eval Order SARS-CoV-2 (PCR) (Negative) Influenza Type A (PCR) (Neg) Influenza Type B (PCR) (Neg) RSV (RT-PCR) (Neg) 02/10/1706/04/20 06/04/20 Range/Units 09:08 09:08 09:18 WBC (4.8-10.8) K/uL RBC (4.7-6.1) M/uL Hgb (14.0-18.0) g/dL Hct (42-52) % MCV (80-100) fL MCH (25-34) pg MCHC (32-36) g/dL RDW Std Deviation (36.4-46.3) fL RDW Coeff of Joey (11.5-14.5) % Plt Count (130-400) K/uL MPV (7.4-10.4) fL Immature Gran % (Auto) % Neut % (Auto) % Lymph % (Auto) % Lassen % (Auto) % Eos % (Auto) % Baso % (Auto) % Neut # (Auto) (1.4-6.5) K/uL Lymph # (Auto) (1.2-3.4) K/uL Lassen # (Auto) (0.11-0.59) K/uL Eos # (Auto) (0-0.5) K/uL Baso # (Auto) (0-0.2) K/uL Immature Gran # (Auto) (0.00-0.02) K/uL PT (9.0-12.0) Seconds INR (0.9-1.1) APTT (21.0-31.0) Seconds PTT Ratio VBG pH (7.36-7.41) VBG pCO2 (38-50) mmHg VBG pO2 mmHg VBG HCO3 mmol/L VBG O2 Saturation % VBG Base Excess mEq/L Barometric Pressure mm/Hg Sodium (136-145) mmol/L Potassium (3.5-5.1) mmol/L Chloride (98-107) mmol/L Carbon Dioxide (21-32) mmol/L Anion Gap (3-11) BUN (7-18) mg/dl Creatinine (0.6-1.4) mg/dl Est Cr Clr Drug Dosing Est GFR ( Amer) Est GFR (Non-Af Amer) BUN/Creatinine Ratio (10-20) Glucose (70-99) mg/dl POC Glucose 98 (70-99) mg/dl Osmolality (280-300) mOsm/kg Lactate (0.4-2.0) mmol/L Calcium (8.5-10.1) mg/dl Phosphorus (2.5-4.9) mg/dl Magnesium (1.8-2.4) mg/dl Total Bilirubin (0.2-1) mg/dl Direct Bilirubin (0-0.2) mg/dl AST (15-37) U/L ALT (12-78) U/L Alkaline Phosphatase (45-117) U/L Troponin I (0-0.045) ng/ml NT-Pro-B Natriuret Pep (0-900) pg/ml Total Protein (6.4-8.2) gm/dl Albumin (3.4-5.0) gm/dl Globulin (2.5-4.0) gm/dl Albumin/Globulin Ratio (0.9-2) Lipase (73-393) U/L Procalcitonin 0.10 (0-0.5) ng/ml Urine Color Urine Appearance (Clear) Urine pH (4.5-7.5) Ur Specific [place] (1.000-1.030) Urine Protein (Negative) Urine Glucose (UA) (Negative) Urine Ketones (Negative) Urine Blood (Negative) Urine Nitrite (Negative) Urine Bilirubin (Negative) Urine Urobilinogen (Negative) Ur Leukocyte Esterase (Negative) Urine Osmolality (500-800) mOsm/kg Ur Random Sodium mmol/L Valproic Acid 74 (50-100) mcg/ml COVID-19 Eval Order SARS-CoV-2 (PCR) (Negative) Influenza Type A (PCR) (Neg) Influenza Type B (PCR) (Neg) RSV (RT-PCR) (Neg) 06/04/20 06/04/20 06/04/20 Range/Units 09:51 09:51 09:54 WBC (4.8-10.8) K/uL RBC (4.7-6.1) M/uL Hgb (14.0-18.0) g/dL Hct (42-52) % MCV (80-100) fL MCH (25-34) pg MCHC (32-36) g/dL RDW Std Deviation (36.4-46.3) fL RDW Coeff of Joey (11.5-14.5) % Plt Count (130-400) K/uL MPV (7.4-10.4) fL Immature Gran % (Auto) % Neut % (Auto) % Lymph % (Auto) % Lassen % (Auto) % Eos % (Auto) % Baso % (Auto) % Neut # (Auto) (1.4-6.5) K/uL Lymph # (Auto) (1.2-3.4) K/uL [place]assen # (Auto) (0.11-0.59) K/uL Eos # (Auto) (0-0.5) K/uL Baso # (Auto) (0-0.2) K/uL Immature Gran # (Auto) (0.00-0.02) K/uL PT (9.0-12.0) Seconds INR (0.9-1.1) APTT (21.0-31.0) Seconds PTT Ratio VBG pH 7.40 (7.36-7.41) VBG pCO2 47 (38-50) mmHg VBG pO2 27 mmHg VBG HCO3 29 mmol/L VBG O2 Saturation < 60.0 % VBG Base Excess 3.1 mEq/L Barometric Pressure 731.6 mm/Hg Sodium (136-145) mmol/L Potassium (3.5-5.1) mmol/L Chloride (98-107) mmol/L Carbon Dioxide (21-32) mmol/L Anion Gap (3-11) BUN (7-18) mg/dl Creatinine (0.6-1.4) mg/dl Est Cr Clr Drug Dosing Est GFR ( Amer) Est GFR (Non-Af Amer) BUN/Creatinine Ratio (10-20) Glucose (70-99) mg/dl POC Glucose (70-99) mg/dl Osmolality 271 L (280-300) mOsm/kg Lactate 2.3 H* (0.4-2.0) mmol/L Calcium (8.5-10.1) mg/dl Phosphorus (2.5-4.9) mg/dl Magnesium (1.8-2.4) mg/dl Total Bilirubin (0.2-1) mg/dl Direct Bilirubin (0-0.2) mg/dl AST (15-37) U/L ALT (12-78) U/L Alkaline Phosphatase (45-117) U/L Troponin I (0-0.045) ng/ml NT-Pro-B Natriuret Pep (0-900) pg/ml Total Protein (6.4-8.2) gm/dl Albumin (3.4-5.0) gm/dl Globulin (2.5-4.0) gm/dl Albumin/Globulin Ratio (0.9-2) Lipase (73-393) U/L Procalcitonin (0-0.5) ng/ml Urine Color Urine Appearance (Clear) Urine pH (4.5-7.5) Ur Specific [place] (1.000-1.030) Urine Protein (Negative) Urine Glucose (UA) (Negative) Urine Ketones (Negative) Urine Blood (Negative) Urine Nitrite (Negative) Urine Bilirubin (Negative) Urine Urobilinogen (Negative) Ur Leukocyte Esterase (Negative) Urine Osmolality (500-800) mOsm/kg Ur Random Sodium mmol/L Valproic Acid (50-100) mcg/ml COVID-19 Eval Order SARS-CoV-2 (PCR) (Negative) Influenza Type A (PCR) (Neg) Influenza Type B (PCR) (Neg) RSV (RT-PCR) (Neg) 06/04/20 06/04/20 06/04/20 Range/Units 10:12 10:12 10:12 WBC (4.8-10.8) K/uL RBC (4.7-6.1) M/uL Hgb (14.0-18.0) g/dL Hct (42-52) % MCV (80-100) fL MCH (25-34) pg MCHC (32-36) g/dL RDW Std Deviation (36.4-46.3) fL RDW Coeff of Joey (11.5-14.5) % Plt Count (130-400) K/uL MPV (7.4-10.4) fL Immature Gran % (Auto) % Neut % (Auto) % Lymph % (Auto) % [place]assen % (Auto) % Eos % (Auto) % Baso % (Auto) % Neut # (Auto) (1.4-6.5) K/uL Lymph # (Auto) (1.2-3.4) K/uL [place] # (Auto) (0.11-0.59) K/uL Eos # (Auto) (0-0.5) K/uL Baso # (Auto) (0-0.2) K/uL Immature Gran # (Auto) (0.00-0.02) K/uL PT (9.0-12.0) Seconds INR (0.9-1.1) APTT (21.0-31.0) Seconds PTT Ratio VBG pH (7.36-7.41) VBG pCO2 (38-50) mmHg VBG pO2 mmHg VBG HCO3 mmol/L VBG O2 Saturation % VBG Base Excess mEq/L Barometric Pressure mm/Hg Sodium (136-145) mmol/L Potassium (3.5-5.1) mmol/L Chloride (98-107) mmol/L Carbon Dioxide (21-32) mmol/L Anion Gap (3-11) BUN (7-18) mg/dl Creatinine (0.6-1.4) mg/dl Est Cr Clr Drug Dosing Est GFR ( Amer) Est GFR (Non-Af Amer) BUN/Creatinine Ratio (10-20) Glucose (70-99) mg/dl POC Glucose (70-99) mg/dl Osmolality (280-300) mOsm/kg Lactate (0.4-2.0) mmol/L Calcium (8.5-10.1) mg/dl Phosphorus (2.5-4.9) mg/dl Magnesium (1.8-2.4) mg/dl Total Bilirubin (0.2-1) mg/dl Direct Bilirubin (0-0.2) mg/dl AST (15-37) U/L ALT (12-78) U/L Alkaline Phosphatase (45-117) U/L Troponin I (0-0.045) ng/ml NT-Pro-B Natriuret Pep (0-900) pg/ml Total Protein (6.4-8.2) gm/dl Albumin (3.4-5.0) gm/dl Globulin (2.5-4.0) gm/dl Albumin/Globulin Ratio (0.9-2) Lipase (73-393) U/L Procalcitonin (0-0.5) ng/ml Urine Color Yellow Urine Appearance Clear (Clear) Urine pH 8.0 H (4.5-7.5) Ur Specific [place] 1.007 (1.000-1.030) Urine Protein Negative (Negative) Urine Glucose (UA) Negative (Negative) Urine Ketones Negative (Negative) Urine Blood Negative (Negative) Urine Nitrite Negative (Negative) Urine Bilirubin Negative (Negative) Urine Urobilinogen Negative (Negative) Ur Leukocyte Esterase Negative (Negative) Urine Osmolality 201 L (500-800) mOsm/kg Ur Random Sodium 29 mmol/L Valproic Acid (50-100) mcg/ml COVID-19 Eval Order SARS-CoV-2 (PCR) (Negative) Influenza Type A (PCR) (Neg) Influenza Type B (PCR) (Neg) RSV (RT-PCR) (Neg) 06/04/20 06/04/20 06/04/20 Range/Units 10:50 10:50 11:41 WBC (4.8-10.8) K/uL RBC (4.7-6.1) M/uL Hgb (14.0-18.0) g/dL Hct (42-52) % MCV (80-100) fL MCH (25-34) pg MCHC (32-36) g/dL RDW Std Deviation (36.4-46.3) fL RDW Coeff of [place] (11.5-14.5) % Plt Count (130-400) K/uL MPV (7.4-10.4) fL Immature Gran % (Auto) % Neut % (Auto) % Lymph % (Auto) % [place] % (Auto) % Eos % (Auto) % Baso % (Auto) % Neut # (Auto) (1.4-6.5) K/uL Lymph # (Auto) (1.2-3.4) K/uL [place] # (Auto) (0.11-0.59) K/uL Eos # (Auto) (0-0.5) K/uL Baso # (Auto) (0-0.2) K/uL Immature Gran # (Auto) (0.00-0.02) K/uL PT (9.0-12.0) Seconds INR (0.9-1.1) APTT (21.0-31.0) Seconds PTT Ratio VBG pH (7.36-7.41) VBG pCO2 (38-50) mmHg VBG pO2 mmHg VBG HCO3 mmol/L VBG O2 Saturation % VBG Base Excess mEq/L Barometric Pressure mm/Hg Sodium (136-145) mmol/L Potassium (3.5-5.1) mmol/L Chloride (98-107) mmol/L Carbon Dioxide (21-32) mmol/L Anion Gap (3-11) BUN (7-18) mg/dl Creatinine (0.6-1.4) mg/dl Est Cr Clr Drug Dosing Est GFR ( Amer) Est GFR (Non-Af Amer) BUN/Creatinine Ratio (10-20) Glucose (70-99) mg/dl POC Glucose (70-99) mg/dl Osmolality (280-300) mOsm/kg Lactate 1.7 (0.4-2.0) mmol/L Calcium (8.5-10.1) mg/dl Phosphorus (2.5-4.9) mg/dl Magnesium (1.8-2.4) mg/dl Total Bilirubin (0.2-1) mg/dl Direct Bilirubin (0-0.2) mg/dl AST (15-37) U/L ALT (12-78) U/L Alkaline Phosphatase (45-117) U/L Troponin I (0-0.045) ng/ml NT-Pro-B Natriuret Pep (0-900) pg/ml Total Protein (6.4-8.2) gm/dl Albumin (3.4-5.0) gm/dl Globulin (2.5-4.0) gm/dl Albumin/Globulin Ratio (0.9-2) Lipase (73-393) U/L Procalcitonin (0-0.5) ng/ml Urine Color Urine Appearance (Clear) Urine pH (4.5-7.5) Ur Specific [place] (1.000-1.030) Urine Protein (Negative) Urine Glucose (UA) (Negative) Urine Ketones (Negative) Urine Blood (Negative) Urine Nitrite (Negative) Urine Bilirubin (Negative) Urine Urobilinogen (Negative) Ur Leukocyte Esterase (Negative) Urine Osmolality (500-800) mOsm/kg Ur Random Sodium mmol/L Valproic Acid (50-100) mcg/ml COVID-19 Eval Order [facility]sv at [facility] SARS-CoV-2 (PCR) NEGATIVE (Negative) Influenza Type A (PCR) Negative (Neg) Influenza Type B (PCR) Negative (Neg) RSV (RT-PCR) Negative (Neg) Administered Medications Albuterol (Albut/Ipratrop 3mg/0.5mg Neb 3 Ml Vial) 3 ml NEB QIDR [facility] Stop: 07/04/20 14:59 Last Admin: 06/04/20 15:42 Dose: 3 ml Documented by: [id number] Clonazepam (Clonazepam 1 Mg Tab) 1 mg PO DAILY@1400 [facility] Stop: 07/04/20 14:02 Last Admin: 06/04/20 15:30 Dose: 1 mg Documented by: [id number] Loratadine (Loratadine 10 Mg Tab) 10 mg PO QAM [facility] Stop: 07/04/20 14:02 Last Admin: 06/04/20 15:30 Dose: 10 mg Documented by: [id number] Discontinued Medications Albuterol (Ipratropium Squires/Albuterol Respimat Inh) 2 puffs INH NOW STA Stop: 06/04/20 09:28 Last Admin: 06/04/20 10:10 Dose: 2 puffs Documented by: [id number] Buspirone HCl (Buspirone 15 Mg Tab) 30 mg PO ONE STA Stop: 06/04/20 13:12 Last Admin: 06/04/20 14:29 Dose: 30 mg Documented by: [id number] Dexamethasone (Dexamethasone Sod Inj 10 Mg/Ml Vial) Confirm Administered Dose 10 mg .ROUTE .STK-MED ONE Stop: 06/04/20 09:37 Last Admin: 06/04/20 10:08 Dose: 10 mg Documented by: [id number] Divalproex Sodium (Divalproex Extended Release 500 Mg Tab) 1,000 mg PO NOW STA Stop: 06/04/20 13:12 Last Admin: 06/04/20 14:29 Dose: 1,000 mg Documented by: [id number] Guaifenesin (Guaifenesin 600 Mg Tabcr) 600 mg PO NOW STA Stop: 06/04/20 09:28 Last Admin: 06/04/20 10:07 Dose: 600 mg Documented by: [id number] Acetaminophen (Ofirmev) 1,000 mg in 100 mls @ 400 mls/hr IV NOW STA Stop: 06/04/20 09:41 Last Infusion: 06/04/20 10:34 Dose: 0 mls/hr Documented by: [id number] Admin: 06/04/20 10:07 Dose: 400 mls/hr Documented by: [id number] Sodium Chloride (Nss 1000ml) 1,000 mls @ 999 mls/hr IV .Q1H1M ONE Stop: 06/04/20 10:27 Last Infusion: 06/04/20 11:12 Dose: 0 mls/hr Documented by: [id number] Admin: 06/04/20 10:07 Dose: 999 mls/hr Documented by: [id number] Dexamethasone Sodium Phosphate (10 mg/ Syringe) 2.5 mls @ 1 mls/min IV NOW STA Stop: 06/04/20 09:29 Last Admin: 06/04/20 10:08 Dose: Not Given Documented by: [id number] Magnesium Sulfate/Dextrose (Magnesium Sulfate / D5w) 1 gm in 100 mls @ 100 mls/hr IV NOW STA Stop: 06/04/20 12:20 Last Infusion: 06/04/20 12:58 Dose: 0 mls/hr Documented by: [id number] Admin: 06/04/20 11:32 Dose: 100 mls/hr Documented by: [id number] Ceftriaxone Sodium (Rocephin) 2,000 mg in 70 mls @ 140 mls/hr IV NOW STA Stop: 06/04/20 12:25 Last Infusion: 06/04/20 14:31 Dose: 0 mls/hr Documented by: [id number] Admin: 06/04/20 13:06 Dose: 140 mls/hr Documented by: [id number] Doxycycline Hyclate 100 mg/ (Dextrose) 110 mls @ 50 mls/hr IV NOW STA Stop: 06/04/20 14:07 Last Infusion: 06/04/20 15:28 Dose: 0 mls/hr Documented by: [id number] Admin: 06/04/20 13:06 Dose: 50 mls/hr Documented by: [id number] Pantoprazole Sodium (Pantoprazole 40 Mg Tab) 40 mg PO NOW STA Stop: 06/04/20 13:12 Last Admin: 06/04/20 14:29 Dose: 40 mg Documented by: [id number] Ziprasidone (Ziprasidone Hcl 20 Mg Cap) 120 mg PO ONE STA Stop: 06/04/20 13:12 Last Admin: 06/04/20 14:29 Dose: 120 mg Documented by: [id number] Discharge Plan Visit Data Chief Complaint: Congestion ED Provider: Kamari Quintana Discharge Problem: Community acquired pneumonia, Hypoxia, Acute hyponatremia, Hypomagnesemia Patient Disposition: Admitted As Inpatient Discharge Instructions Interventions: ED Discharge Assessment Last Done: 06/04/20 13:29 Discharge Problem: Community acquired pneumonia Qualifiers: Laterality: right Lung location: upper lobe of lung Qualified Code(s): J18.9 - Pneumonia, unspecified organism
[2020-06-04] MEDS ORDERED: ACETAMINOPHEN 1,000 MG/100 ML VIAL IV STA (09:27)
[2020-06-04] MEDS ORDERED: DEXAMETHASONE SOD PHOSPHATE 10 MG in SYRINGE 0 ML IV STA (09:27)
[2020-06-04] MEDS ORDERED: guaiFENesin 600 MG TABCR PO STA (09:27)
[2020-06-04] MEDS ORDERED: SODIUM CHLORIDE 0.9% 1000ML 1,000 ML IV ONE (09:27)
[2020-06-04] MEDS ORDERED: IPRATROPIUM BROMIDE/ALBUTEROL respimat INH INH STA (09:27)
[2020-06-04] MEDS ORDERED: DEXAMETHASONE SOD INJ 10 MG/ML VIAL ONE (09:36)
[2020-06-04 09:38] LABS: Basophils # (auto) 0.01 K/uL (0-0.2); Basophils % (auto) 0.1 %; Eosinophils # (auto) 0.08 K/uL (0-0.5); Eosinophils % (auto) 0.7 %; Hematocrit (blood only) 46.8 % (42-52); Hemoglobin 15.9 g/dL (14.0-18.0); Immature Granulocytes # (auto) 0.04 K/uL (0.00-0.02); Immature Granulocytes % (auto) 0.4 %; Lymphocytes # (auto) 1.35 K/uL (1.2-3.4); Lymphocytes % (auto) 12.3 %; Mean Corpuscular Hemoglobin 28.6 pg (25-34); Mean Corpuscular Volume 84.2 fL (80-100); Mean Platelet Volume 8.9 fL (7.4-10.4); Monocytes # (auto) 0.73 K/uL (0.11-0.59); Monocytes % (auto) 6.6 %; Neutrophils # (auto) 8.79 K/uL (1.4-6.5); Neutrophils % (auto) 79.9 %; Platelet Count 207 K/uL (130-400); RDW Coefficient of Variation 14.3 % (11.5-14.5); RDW Standard Deviation 44.2 fL (36.4-46.3); Red Blood Count 5.56 M/uL (4.7-6.1)
[2020-06-04 09:47] LABS: Alanine Aminotransferase 25 U/L (12-78); Albumin Level 3.5 gm/dl (3.4-5.0); Aspartate Aminotransferase 15 U/L (15-37); BUN Creatinine Ratio 10.9 (10-20); Bilirubin Direct 0.1 mg/dl (0-0.2); Blood Urea Nitrogen 15 mg/dl (7-18); Calcium 9.4 mg/dl (8.5-10.1); Carbon Dioxide 28 mmol/L (21-32); Chloride 92 mmol/L (98-107); Est GFR (African American) 63.1; Est GFR (Non-African American) 54.4; Glucose 109 mg/dl (70-99); Lipase 164 U/L (73-393); Magnesium 1.7 mg/dl (1.8-2.4); Potassium 4.1 mmol/L (3.5-5.1); Sodium 128 mmol/L (136-145)
[2020-06-04 09:51] LABS: Alkaline Phosphatase 73 U/L (45-117); Bilirubin,Total 0.4 mg/dl (0.2-1); Globulin 3.6 gm/dl (2.5-4.0); NT Pro B Type Natriuretic Pept 34 pg/ml (0-900); Phosphorus 2.6 mg/dl (2.5-4.9); Total Protein 7.1 gm/dl (6.4-8.2); Troponin I < 0.015 ng/ml (0-0.045)
[2020-06-04 09:54] LABS: Partial Thromboplastin Time 27.1 Seconds (21.0-31.0)
[2020-06-04 10:03] LABS: Base Excess VBG 3.1 mEq/L; HCO3 VBG 29 mmol/L; Oxygen Saturation VBG < 60.0 %; PCO2 VBG 47 mmHg (38-50); PO2 VBG 27 mmHg
--- NOTE | 2020-06-04 10:16 | XRay Report ---
XR chest 1V portable HISTORY: SEPSIS COMPARISON: Chest 05/27/2019. FINDINGS: Rotated study. No pneumothorax. No pleural effusions. The heart is normal in size. There is a tortuous thoracic aorta, unchanged. Small hiatus hernia is also unchanged. The left lung appears c lear. There is a new focal right upper lobe airspace opacity. IMPRESSION: A new focal right upper lobe airspace opacity. This is consistent with a pneumonia. ACT 112: Negative or not required by law. Electronically signed by: Errol Naik M.D. 06/04/2020 10:15 AM
[2020-06-04 10:22] LABS: Appearance Urine Clear (Clear); Bilirubin Urine Negative (Negative); Blood Urine Negative (Negative); Color Urine Yellow; Glucose Urine UA Negative (Negative); Ketones Urine Negative (Negative); Leukocyte Esterase Urine Negative (Negative); Nitrite Urine Negative (Negative); Protein Urine Negative (Negative); Specific Gravity Urine 1.007 (1.000-1.030); Urobilinogen Urine Negative (Negative)
[2020-06-04] MEDS ORDERED: MAGNESIUM SULFATE / D5W 1 GM/100 ML BAG IV STA (11:21)
[2020-06-04 11:46] LABS: Influenza A virus by PCR Negative (Neg); Influenza B virus by PCR Negative (Neg); RSV by PCR Negative (Neg); SARS CoV2 RNA(COVID-19) InHosp NEGATIVE (Negative)
[2020-06-04] MEDS ORDERED: DOXYCYCLINE HYCLATE 100 MG in DEXTROSE 5% 100 ML IV STA (11:56)
[2020-06-04] MEDS ORDERED: cefTRIAXone SODIUM 2,000 MG/70 ML BAG IV STA (11:56)
[2020-06-04] MEDS ORDERED: PANTOprazole 40 MG TAB PO STA (13:11)
[2020-06-04] MEDS ORDERED: busPIRone 15 MG TAB PO STA (13:11)
[2020-06-04] MEDS ORDERED: DIVALPROEX EXTENDED RELEASE 500 MG TAB PO STA (13:11)
--- NOTE | 2020-06-04 13:15 | History & Physical Report ---
Date of Service June 04, 2020 Assessment & Plan (1) Hypoxia: Aim O2 sats > 94%, no respiratory distress (2) Community acquired pneumonia: Continue ceftriaxone 2 g IV daily and doxycycline 100 mg p.o. daily twice daily (3) Acute asthma exacerbation: Mild intermittent. Patient on no maintenance inhalers. Mild wheezing on examination. Dexamethasone 10 mg IV given in ER. Will continue prednisone 40 mg p.o. 3 to 5 days. Duo nebs QID (4) Type 2 diabetes mellitus: HbA1c 5.7 in April. No need to repeat this. Patient requests regular diet rather than diabetic diet. Given low A1c this is reasonable although suspect some degree of hyperglycemia with steroid use. (5) Schizophrenia: With bipolar Continue his usual antipsychotics Geodon and perphenazine Continue usual mood stabilizers with Depakote (6) GERD (gastroesophageal reflux disease): Patient denies being on famotidine, reports still taking ranitidine 150 mg p.o. twice daily Switch omeprazole for pantoprazole per hospital formulary (7) Hyperlipidemia: Continue pravastatin 20 mg p.o. at bedtime (8) Lymphedema of lower extremity: Patient refuses HERNAN hose (9) Hypertension: Continue lisinopril 10 mg p.o. daily, hold Lasix pending stability and blood pressure (10) Hypothyroidism: TSH WNL May 05. No need to repeat this. Continue levothyroxine 175 mcg p.o. every morning (11) Hyponatremia: Suspect secondary to dehydration from current infection and Lasix use. Repeat with a.m. labs. Hold Lasix as above (12) DVT prophylaxis: Low risk, chemical prophylaxis deferred, likely short duration of stay History of Present Illness Chief Complaint: Shortness of breath Primary Care Provider: Yohannes Carrillo MD Lam Wong is a 60-year-old male who presents to the ER with shortness of breath. He reports symptoms started this morning with fever, cough, shortness of breath. He received his 1st COVID-19 immunization on Saturday and felt generally well after this. He reports having asthma and requiring prednisone possibly once a year. He has had pneumonia in the past. He has good knowledge of his medications but reports due to his illness he did not take his usual medications this morning. He denies any loss of taste or smell, sore throat, diarrhea, nausea/vomiting, chest or abdominal pain. No known COVID-19 exposure. In the ER he was notably short of breath but improved significantly with steroids, antibiotics, nebulizer, IV fluids and oxygen given. Chest x-ray concerning for a right upper lobe airspace opacity. SARS-CoV-2, influenza and RSV PCR negative. He was diagnosed with community-acquired pneumonia and referred to medicine for admission and ongoing management of this along with hypoxia. Allergies Allergy/AdvReac Type Severity Reaction Status Date / Time No Known Drug Allergies Allergy Unknown Unknown Verified 05/28/19 15:17 Home Medications Medication Instructions Recorded Confirmed Type buspirone 30 mg PO BID 01/26/18 06/04/20 History ziprasidone HCl 80 mg PO BID 01/26/18 06/04/20 History clonazepam 1 mg PO UD 05/27/19 06/04/20 History divalproex 1,000 mg PO QAM 05/27/19 06/04/20 History divalproex 1,500 mg PO QPM 05/27/19 06/04/20 History loratadine 10 mg tablet 10 mg PO QAM #90 tab 05/27/19 06/04/20 Rx ziprasidone HCl 40 mg PO BID 05/27/19 06/04/20 History incontinence pad, liner, disp #180 ea 06/11/19 06/04/20 Rx albuterol sulfate 90 mcg/actuation 2 puff INHALATION QID PRN #18 gm 06/24/19 06/04/20 Rx aerosol inhaler blood-glucose meter #1 ea 07/06/19 06/04/20 Rx fluticasone propionate 50 1 - 2 sprays INTNAS DAILY #16 gm 07/16/19 06/04/20 Rx mcg/actuation nasal spray,suspension montelukast 10 mg tablet 10 mg PO PM #90 tab 07/21/19 06/04/20 Rx famotidine 20 mg tablet 20 mg PO BID #180 tab 08/05/19 06/04/20 Rx furosemide 40 mg tablet 40 mg PO DAILY #90 tab 08/19/19 06/04/20 Rx aspirin 81 mg tablet,delayed 81 mg PO QAM #90 tab 09/07/19 06/04/20 Rx release lisinopril 10 mg tablet 10 mg PO QAM #90 tab 11/02/19 06/04/20 Rx omeprazole 20 mg capsule,delayed 20 mg PO QAM #90 cap 11/05/19 06/04/20 Rx release blood sugar diagnostic #100 ea 04/14/20 06/04/20 Rx levothyroxine 50 mcg tablet 175 mcg PO QAM #135 tab 05/02/20 06/04/20 Rx lancets 33 gauge #100 ea 05/19/20 06/04/20 Rx metformin 500 mg PO BID 06/04/20 06/04/20 History perphenazine 8 mg PO BID 06/04/20 06/04/20 History polyethylene glycol 3350 17 g PO BID 06/04/20 06/04/20 History potassium chloride [Klor-Con M20] 20 meq PO BID 06/04/20 06/04/20 History pravastatin 20 mg PO HS 06/04/20 06/04/20 History cefuroxime axetil 500 mg PO BID 6 Days #12 tab 06/05/20 Rx doxycycline hyclate 100 mg PO BID 6 Days #12 cap 06/05/20 Rx prednisone 40 mg PO QAM 2 Days #4 tab 06/05/20 Rx Past Med/Surg History Medical History Asthma USES RES. INH DAILY Bipolar 1 disorder STABLE PER PATIENT CKD (chronic kidney disease) PT STATES HE HAS THIS BUT UNSURE OF DETAILS- DOESNT FOLLOW WITH ANYONE Facial basal cell cancer REMOVED GERD (gastroesophageal reflux disease) Hearing deficit History of pneumonia Hyperlipidemia Hypertension Hypothyroidism (05/20/12) Mitral regurgitation - FOLLOWS WITH PCP THROUGH [facility] Osteoarthritis Right bundle branch block with left anterior fascicular block Schizoaffective disorder, bipolar type Sleep apnea NO CPAP-DOES NOT FOLLOW WITH ANYONE Tricuspid regurgitation Urinary incontinence Surgical History History of colonoscopy History of esophagogastroduodenoscopy (EGD) History of tonsillectomy History of total knee replacement BILAT S/P total knee arthroplasty 08/2017 Family History Unknown Hypertension Mother Hypertension Sister Diabetes Denies family history of Ovarian cancer Prostate cancer Myocardial infarction Breast cancer Colorectal cancer Social History Smoking Status: Unknown if ever smoked Second Hand Exposure: Yes (IN PAST); Hx Alcohol Use: No Hx Substance Use: No Preferred Language: Polish Communication Ability: Effective Visual Impairment: Limited Hearing Ability: Normal Iron Bender Required: No Beliefs That Will Affect Care: None marital status: Single Current Living Situation: Alone current occupational status: unemployed How many Children do You have: 0 Other Information That Helps Us Care for You: No Feels Safe at Home: Yes Safety Concerns: Feels Safe At This Time Seatbelt Use: always Assistive Devices: Glasses and Walker Review of Systems Review of Systems: All systems reviewed & are unremarkable except as noted in HPI & below Physical Exam Constitutional: well developed; no acute distress Eyes: PERRL, conjunctivae normal, anicteric sclerae ENMT: Ears: no external ear abnormality Nose: no external nose abnormality Mouth: + dry oral mucous membranes Neck: trachea midline, no thyromegaly Respiratory: + uses accessory muscles, + cough and able to speak in complete sentences; no respiratory distress, no labored breathing and no retractions Auscultation: + crackles (Right upper posteriorly) and + wheezes (Mild end expiratory wheeze throughout); no diminished lung sounds Cardiovascular: Rate/Rhythm: regular rate and regular rhythm Extremities: + pedal edema (2+ to knees b/l equal) Gastrointestinal (Abdomen): normal bowel sounds, soft, nontender, no hepatosplenomegaly Musculoskeletal: no cyanosis or clubbing, extremities motor strength 5/5 Skin: no rashes, warm and dry Neurologic: awake; not confused Psychiatric: A+Ox3, euthymic affect Genitourinary: no CVA tenderness Results & Data Results & Data ([facility]) Vital Signs (Past 12 Hours) Vital Signs Temp Pulse Resp BP Pulse Ox 06/04/20 10:30 99 H 23 136/90 92 06/04/20 10:15 100 H 22 161/97 H 94 06/04/20 09:34 95 06/04/20 09:30 104 H 24 139/92 91 06/04/20 09:15 104 H 23 170/90 H 92 06/04/20 09:03 38.8 C H 107 H 20 155/90 H 94 Diagnostic Findings XR chest 1V portable IMPRESSION: A new focal right upper lobe airspace opacity. This is consistent with a pneumonia. Medications Administered ER medications given: Magnesium sulfate 1 g IV Ceftriaxone 2 g IV Doxycycline 100 mg IV ECG Indication: SOB/dyspnea Rate (beats per minute): 105 Rhythm: sinus tachycardia Findings: + LAFB and + RBBB Comparison ECG Date: from (2019-01-23) Change: no significant change Code Status & VTE Plan Code Status Full VTE Prophylaxis Plan VTE Prophylaxis will be ordered: Yes PG Care Time/CCT Total # of Minutes Spent Total Time Spent with Patient: Total time spent is greater than 50% in coordination of care (as documented) at patient's floor/unit and/or counseling patient: Coding Level of Care Code 74017 Initial Inpt Care Lvl 3 Diagnoses Hypoxia R09.02 Community acquired pneumonia J18.9 Acute asthma exacerbation J45.901 Type 2 diabetes mellitus E11.9 Schizophrenia F20.9 GERD (gastroesophageal reflux disease) K21.9 Hyperlipidemia E78.5 Lymphedema of lower extremity I89.0 Hypertension I10 Hypothyroidism E03.9 Hyponatremia E87.1 DVT prophylaxis Z29.9
[2020-06-04] MEDS ORDERED: ONDANSETRON INJ 2 MG/ML 2 ML VIAL IV PRN (14:03)
[2020-06-04] MEDS ORDERED: POLYETHYLENE (MIRALAX) 17 GM PACK PO PRN (14:03)
[2020-06-04] MEDS ORDERED: ACETAMINOPHEN 325 MG TAB PO PRN (14:03)
[2020-06-04] MEDS ORDERED: ALUMINUM/MAGNESIUM SUSP 30 ML UDC PO PRN (14:03)
[2020-06-04] MEDS ORDERED: metFORMIN HCL 500 MG TAB PO PRN (14:35)
[2020-06-04] MEDS: LORATADINE 10 MG TAB PO SCH (15:30)
[2020-06-04] MEDS: clonazePAM 1 MG TAB PO SCH (15:30)
[2020-06-04] MEDS: ALBUT/IPRATROP 3MG/0.5MG NEB 3 ML VIAL NEB SCH ×2 (15:42→19:21)
[2020-06-04] MEDS ORDERED: metFORMIN HCL 500 MG TAB PO SCH (17:00)
[2020-06-04] MEDS: POTASSIUM CHLORIDE CRTAB 20 MEQ TABCR PO SCH (20:17)
[2020-06-04] MEDS: DOXYCYCLINE HYCLATE 100 MG CAP PO SCH (20:18)
[2020-06-04] MEDS: busPIRone 15 MG TAB PO SCH (20:18)
[2020-06-04] MEDS: PERPHENAZINE 2 MG TABLET PO SCH (20:18)
[2020-06-04] MEDS: ziprasidone HCL 80 MG CAP PO SCH (20:20)
[2020-06-04] MEDS: POLYETHYLENE (MIRALAX) 17 GM PACK PO SCH (20:20)
[2020-06-04] MEDS ORDERED: clonazePAM 1 MG TAB PO SCH (21:00)
[2020-06-04] MEDS ORDERED: PRAVASTATIN SOD 20 MG TAB PO SCH (21:00)
[2020-06-04] MEDS ORDERED: DIVALPROEX DELAY RELEASE 500 MG TAB PO SCH (21:00)
[2020-06-04] MEDS ORDERED: MONTELUKAST SODIUM 10 MG TABLET PO SCH (21:00)
[2020-06-04] MEDS ORDERED: RANITIDINE 150 MG PO SCH (21:00)
[2020-06-05] MEDS ORDERED: cefUROXime axetil 500 MG TAB PO SCH
[2020-06-05] MEDS ORDERED: LEVOTHYROXINE SODIUM 175 MCG TABLET PO SCH (06:30)
[2020-06-05 06:54] LABS: Hematocrit (blood only) 42.9 % (42-52); Hemoglobin 14.5 g/dL (14.0-18.0); Mean Corpuscular Hemoglobin 28.5 pg (25-34); Mean Corpuscular Hgb Conc 33.8 g/dL (32-36); Mean Corpuscular Volume 84.4 fL (80-100); Mean Platelet Volume 9.4 fL (7.4-10.4); Platelet Count 256 K/uL (130-400); RDW Coefficient of Variation 14.7 % (11.5-14.5); RDW Standard Deviation 45.2 fL (36.4-46.3); Red Blood Count 5.08 M/uL (4.7-6.1); White Blood Count 12.24 K/uL (4.8-10.8)
[2020-06-05 06:55] LABS: Immature Granulocytes # (auto) 0.03 K/uL (0.00-0.02); Immature Granulocytes % (auto) 0.2 %; Lymphocytes % (auto) 10.6 %; Monocytes # (auto) 1.12 K/uL (0.11-0.59); Monocytes % (auto) 9.2 %; Neutrophils # (auto) 9.79 K/uL (1.4-6.5)
[2020-06-05 07:13] LABS: BUN Creatinine Ratio 13.6 (10-20); Creatinine Clr Calc Pharmacy 85.6 ml/min; Est GFR (African American) 83.9; Est GFR (Non-African American) 72.4; Potassium 4.4 mmol/L (3.5-5.1)
[2020-06-05] MEDS: ALBUT/IPRATROP 3MG/0.5MG NEB 3 ML VIAL NEB SCH ×3 (07:40→14:30)
[2020-06-05] MEDS: POLYETHYLENE (MIRALAX) 17 GM PACK PO SCH ×2 (08:12→12:07)
[2020-06-05] MEDS: DOXYCYCLINE HYCLATE 100 MG CAP PO SCH (08:14)
[2020-06-05] MEDS: PERPHENAZINE 2 MG TABLET PO SCH (08:15)
[2020-06-05] MEDS: POTASSIUM CHLORIDE CRTAB 20 MEQ TABCR PO SCH (08:15)
[2020-06-05] MEDS: busPIRone 15 MG TAB PO SCH (08:15)
[2020-06-05] MEDS: ziprasidone HCL 80 MG CAP PO SCH (08:16)
[2020-06-05] MEDS: LORATADINE 10 MG TAB PO SCH (08:16)
[2020-06-05] MEDS ORDERED: predniSONE 20 MG TAB PO SCH ×2 (09:00→12:00)
[2020-06-05] MEDS ORDERED: PANTOprazole 40 MG TAB PO SCH (09:00)
[2020-06-05] MEDS ORDERED: DIVALPROEX DELAY RELEASE 500 MG TAB PO SCH (09:00)
[2020-06-05] MEDS ORDERED: lisinopril 10 MG TAB PO SCH (09:00)
[2020-06-05] MEDS ORDERED: FLUTICASONE PROPIONATE NA SPR 16 GM BTL NAE SCH (09:00)
[2020-06-05] MEDS ORDERED: ASPIRIN 81 MG ECTAB PO SCH (09:00)
--- NOTE | 2020-06-05 11:20 | Electrocardiogram Report ---
Test Reason : Blood Pressure : / mmHG Vent. Rate : 105 BPM Atrial Rate : 105 BPM P-R Int : 210 ms QRS Dur : 138 ms QT Int : 358 ms P-R-T Axes : 054 -78 069 degrees QTc Int : 473 ms Poor data quality, interpretation may be adversely affected Sinus tachycardia with 1st degree A-V block Right bundle branch block Left anterior fascicular block Bifascicular block Septal infarct (cited on or before 22-JAN-2019) Abnormal ECG When compared with ECG of 23-JAN-2019 06:50, No significant change Confirmed by Cruz Castano ([id number]) on 06/05/2020 11:20:21 AM Referred By: REFERRED SELF Confirmed By:Cruz Castano
[2020-06-05] MEDS ORDERED: CONSULT PHARMACY STA (11:37)
--- NOTE | 2020-06-05 11:44 | Discharge Summary ---
Date of Service June 05, 2020 Admission HPI Per Admitting Provider Lam Wong is a 60-year-old male who presents to the ER Principal Diagnosis Pt states he is feeling at his usual. He has not needed O2 today, even with being OOB. He has no SOB. He is eating without issue. He is asking to be d/c'd home today. He states he has had PNA many times, but this was the first he has been hospitalized for it recently. He tells me he has an albuterol inhaler at home, but only for PRN use. He has not used in recently. Pt denies fever, chest pain, abd pain, n/v/c/d, LE pain or swelling. Discharge Exam Constitutional WD/WN, vitals as above Eyes normal visual savage by confrontation and + anicteric sclerae Neck normal visual inspection and trachea midline Respiratory normal respiratory effort, lungs clear to auscultation Auscultation: no crackles and no wheezes Cardiovascular Rate/Rhythm: regular rate and regular rhythm Gastrointestinal (Abdomen) Inspection/Auscultation: abdomen not distended Percussion/Palpation: abdomen soft; abdomen nontender Musculoskeletal Head/Neck/Chest: normocephalic and head atraumatic Skin no rashes, warm and dry Neurologic awake; not confused Psychiatric A+Ox3, euthymic affect Discharge Data Allergies Allergy/AdvReac Type Severity Reaction Status Date / Time No Known Drug Allergies Allergy Unknown Unknown Verified 05/28/19 15:17 Consultations 06/04/20 11:57 ED Decision to Admit Stat Hospital Course (1) Hypoxia: Aim O2 sats > 94%, no respiratory distress COVID, flu, RSV neg Trop, BNP WNL CBC, PRP WNL No longer requiring O2 at rest or with ambulation (2) Community acquired pneumonia: RUL PNA noted on CXR Started on ceftriaxone 2 g IV daily and doxycycline 100 mg p.o. daily twice daily on admission WBC slightly elevated on admission, a touch higher today in the setting of steroid use Lactic acid elevated on admission, now WNL s/p interventions Afebrile, VSS Blood cx pending on d/c Will d/c with doxy and cefuroxime x7 days of total abx (3) Acute asthma exacerbation: Mild intermittent. Patient on no maintenance inhalers. Mild wheezing on examination. Dexamethasone 10 mg IV given in ER. Will d/c with 2 more days of prednisone 40 mg for 3 days total Use home albuteral Q4-6hrs for the next week (4) Type 2 diabetes mellitus: HbA1c 5.7 in April. No need to repeat this. Patient requests regular diet rather than diabetic diet. Given low A1c this is reasonable although suspect some degree of hyperglycemia with steroid use. (5) Schizophrenia: With bipolar Continue his usual antipsychotics Geodon and perphenazine Continue usual mood stabilizers with Depakote (6) GERD (gastroesophageal reflux disease): Patient denies being on famotidine, reports still taking ranitidine 150 mg p.o. twice daily Switch omeprazole for pantoprazole per hospital formulary (7) Hyperlipidemia: Continue pravastatin 20 mg p.o. at bedtime (8) Lymphedema of lower extremity: Patient refuses HERNAN hose (9) Hypertension: Continue lisinopril 10 mg p.o. daily, hold Lasix pending stability and blood pressure (10) Hypothyroidism: TSH WNL May 05. No need to repeat this. Continue levothyroxine 175 mcg p.o. every morning (11) DVT prophylaxis: (12) Hyponatremia: (13) 1st degree AV block: Noted on EKG x2. I do not see this on more recent EKGs Asx with this, however may need to assess further if sx were to develop Total Time Total Time Spent Total Time Spent (In Minutes): >30 Total Time Includes: Examination of the Patient, Discharge Planning, Medication Reconciliation, Communication With Other Providers and Other Discharge Plan Discharge Items Patient Disposition: Home - Home Health Services Reason For Visit: COMMUNITY ACQUIRED PNEUMONIA,HYPOXIA Discharge Diagnosis: Pneumonia Activity: Resume your previous activity Non-emergency contact: Primary Care Provider Call non-emergency contact if: you have any medication questions, your symptoms worsen and you have a fever Follow-up/Referrals: ProYohannes MD [Primary Care Provider] - (f/u in 3 days) Diet: Regular Addtl Attending Provider Instructions: You should use your inhaler every 4-6 hours, even if your breathing feels normal to you. You should do this for the next 7 days. You will take one dose of prednisone (steroids) daily for the next two days. Pending Studies at Discharge: Yes Studies:: Final blood cultures Stand-Alone Forms: My [facility] [employer] Smoking Cessation Medications and DC Order Prescriptions: New doxycycline hyclate 100 mg Capsule 100 mg PO BID 6 Days Qty: 12 RF: 0 prednisone 20 mg Tablet 40 mg PO QAM 2 Days Qty: 4 RF: 0 cefuroxime axetil 500 mg tablet 500 mg PO BID 6 Days Qty: 12 RF: 0 Continued loratadine 10 mg tablet 10 mg PO QAM Qty: 90 RF: 3 (DME) incontinence pad, liner, disp Pad See Rx Instructions .ROUTE .MEDSUPPLY Qty: 180 RF: 3 albuterol sulfate 90 mcg/actuation HFA aerosol inhaler 2 puff INHALATION QID PRN (Reason: Shortness Of Breath) Qty: 18 RF: 3 (DME) blood-glucose meter [[employer] UltraMini] Kit See Rx Instructions .ROUTE .MEDSUPPLY Qty: 1 RF: 0 fluticasone propionate [Allergy Relief (fluticasone)] 50 mcg/actuation spray,suspension 1 - 2 sprays INTNAS DAILY Qty: 16 RF: 3 montelukast 10 mg tablet 10 mg PO PM Qty: 90 RF: 3 famotidine 20 mg tablet 20 mg PO BID Qty: 180 RF: 3 furosemide 40 mg tablet 40 mg PO DAILY Qty: 90 RF: 3 aspirin [Aspir-81] 81 mg tablet,delayed release (DR/EC) 81 mg PO QAM Qty: 90 RF: 3 lisinopril 10 mg tablet 10 mg PO QAM Qty: 90 RF: 3 omeprazole 20 mg capsule,delayed release(DR/EC) 20 mg PO QAM Qty: 90 RF: 3 (DME) OneTouch Ultra Blue Test Strip Strip See Rx Instructions .ROUTE .MEDSUPPLY Qty: 100 RF: 5 levothyroxine 50 mcg tablet 175 mcg PO QAM Qty: 135 RF: 1 (DME) lancets [OneTouch Delica Lancets] 33 gauge misc See Rx Instructions .ROUTE .MEDSUPPLY Qty: 100 RF: 5 clonazepam 1 mg tablet 1 mg PO UD RF: 0 divalproex 500 mg tablet,delayed release (DR/EC) 1,500 mg PO QPM RF: 0 divalproex 500 mg tablet,delayed release (DR/EC) 1,000 mg PO QAM RF: 0 ziprasidone HCl 40 mg capsule 40 mg PO BID RF: 0 ziprasidone HCl 80 mg Capsule 80 mg PO BID RF: 0 buspirone 30 mg Tablet 30 mg PO BID RF: 0 potassium chloride [Klor-Con M20] 20 mEq tablet,ER particles/crystals 20 meq PO BID RF: 0 perphenazine 8 mg tablet 8 mg PO BID RF: 0 metformin 500 mg tablet 500 mg PO BID RF: 0 pravastatin 20 mg tablet 20 mg PO HS RF: 0 polyethylene glycol 3350 17 gram/dose powder 17 g PO BID RF: 0 Discharge Orders: Discharge Order (Routine); Ordered 06/05/20 Ordered By: Annalise Haddad Admission Data Admit Date/Time: 06/04/20 12:43 Attending Provider: Annalise Haddad Admit Provider: Rd Harry Primary Care Provider: Yohannes Carrillo Other Providers: Rd Harry Other Interventions: Discharge Summary Assessment (RN) Last Done: 06/05/20 12:04 Coding Level of Care Code D/C Day Management >30 mins Diagnoses Hypoxia R09.02 Community acquired pneumonia J18.9 Acute asthma exacerbation J45.901 Type 2 diabetes mellitus E11.9 Schizophrenia F20.9 GERD (gastroesophageal reflux disease) K21.9 Hyperlipidemia E78.5 Lymphedema of lower extremity I89.0 Hypertension I10 Hypothyroidism E03.9 DVT prophylaxis Z29.9 Hyponatremia E87.1 1st degree AV block I44.0
--- NOTE | 2020-06-05 11:46 | Electrocardiogram Report ---
Test Reason : Blood Pressure : / mmHG Vent. Rate : 096 BPM Atrial Rate : 096 BPM P-R Int : 210 ms QRS Dur : 158 ms QT Int : 408 ms P-R-T Axes : 063 -67 077 degrees QTc Int : 515 ms Sinus rhythm with 1st degree A-V block Right bundle branch block Left anterior fascicular block Bifascicular block Abnormal ECG When compared with ECG of 04-JUN-2020 09:13, (unconfirmed) Criteria for Septal infarct are no longer Present Confirmed by Cruz Castano ([id number]) on 06/05/2020 11:45:47 AM Referred By: REFERRED SELF Confirmed By:Cruz Castano
[2020-06-05] MEDS ORDERED: cefTRIAXone SODIUM 2,000 MG in DEXTROSE 5% 50 ML IV SCH (13:00)
[2020-06-05] MEDS: clonazePAM 1 MG TAB PO SCH (13:42)
[2020-06-05] MEDS ORDERED: DOXYCYCLINE HYCLATE 100 MG CAP PO SCH (21:00)
== END 2020-06-05 16:22 | disposition home health service (06) ==
LOC: ED 08:57 → 2N 12:43 → SUATTDRO 12:43 → INTOOBSV 12:43 → 2N 13:29

== ENCOUNTER 2021-09-19 22:55 | Observation (INO) ==
--- NOTE | 2021-09-19 23:09 | Emergency Department Note ---
Impression & Plan CHF (congestive heart failure), Acute hyponatremia, LOW (dyspnea on exertion) ED Provider Note NAME: LOU COLON AGE: 61 SEX: M : 1960 ARRIVES VIA: Ambulance INFORMANT: Patient, ED PROVIDER(S): Yohannes Contreras DO CHIEF COMPLAINT: Shortness of breath HPI: Patient is a 61-year-old male who presented to the emergency department by ambulance for an evaluation of difficulty breathing. The patient states that he started noticing difficulty breathing over the last 24 hours. He states symptoms worsen with exertion. He also noticed some worsening symptoms with lying flat. He denies having any fever. He said no hemoptysis. He has had lower extremity swelling but this is not new. According to the prehospital personnel the patient had a normal oxygen saturation even after walking to the ambulance. Patient denies having any recent trauma. He is not seen his family doctor recently. He is vaccinated against COVID-19. He states has been compliant with all of his usual outpatient medications. ROS: See above HPI for pertinent positives & negatives. A total of 10 systems reviewed and were otherwise negative. PAST MEDICAL HISTORY: See Below PAST SURGICAL HISTORY: See Below FAMILY HISTORY: See Below SOCIAL HISTORY: See Below HOME MEDICATIONS: See Below ALLERGIES: See Below VITALS: See Below PHYSICAL EXAMINATION: GENERAL: Patient is awake alert in no acute distress patient is resting comfortably and showing no signs of anxiety EYES: The conjunctivae are clear. The pupils are round and reactive. EARS, NOSE, MOUTH AND THROAT: The nose is without any evidence of any deformity. Mucous membranes are moist. Tongue is midline. NECK: The neck is nontender and supple. RESPIRATORY: Diminished breath sounds are noted bilaterally. There were some rales noted at the right base. There is no tachypnea or conversational dyspnea. CARDIOVASCULAR: Regular rate and rhythm noted there no murmurs rubs or gallops normal S1 normal S2. GASTROINTESTINAL: The abdomen is soft. Abdomen is nontender. MUSCULOSKELETAL/EXTREMITIES: There is no evidence of gross deformity full range of motion is noted in the hips and shoulders. SKIN: Skin was warm and dry. Pulses are symmetric in both feet. Significant pedal edema was noted bilaterally. NEUROLOGIC: Patient is awake alert and oriented x3. MEDICAL DECISION MAKING: The patient is a 61-year-old male who presented to the emergency department for an evaluation of difficulty breathing. The patient arrived via ambulance. The patient did have 1 episode of hypoxia while he was in the emergency department. Physical exam did reveal pulmonary edema. I discussed the patient's laboratory and radiographic studies with him. He was treated with Lasix in the emergency department. I discussed this case with the on-call [facility] hospitalist group. They have agreed to evaluate the patient in the emergency department for further management and disposition. Triage Nursing notes reviewed. Prior medical records reviewed Vital Signs: reviewed and remarkable for elevated blood pressure and hypoxia. Differential diagnosis: Reactive airway disease, pneumonia, pneumothorax, COPD, CHF, infections, cardiac ischemia, pulmonary embolism, musculoskeletal, gastrointestinal, as well as other pathologies. ER treatment provided: See below Diagnostics interpreted by me: ECG: EKG was obtained in the emergency department. My interpretation is sinus rhythm at 86 bpm. First-degree AV block was noted. Right bundle branch block pattern was noted. This was compared to a tracing from June 05, 2020. No changes were noted. Cardiac Monitoring: An order was placed for continuous cardiac monitoring. The monitor shows a rate of 77 bpm with sinus rhythm. Laboratory studies: As stated above and show below. Imaging studies: See below Consultation(s): The [facility] hospitalist group was notified about the patient. They will evaluate the patient in the emergency department for further management and disp osition. Past Med/Surg History Medical History Asthma RARE RES INH USE Bipolar 1 disorder STABLE PER PATIENT BPH (benign prostatic hyperplasia) CKD (chronic kidney disease) PT STATES HE HAS THIS BUT UNSURE OF DETAILS- DOESNT FOLLOW WITH ANYONE Diabetes mellitus, type 2 Facial basal cell cancer REMOVED GERD (gastroesophageal reflux disease) Hearing deficit History of pneumonia RESOLVED Hyperlipidemia Hypertension Hypothyroidism (05/20/12) Mitral regurgitation - FOLLOWS WITH PCP THROUGH [facility] No pertinent past medical history Osteoarthritis Right bundle branch block with left anterior fascicular block DOESNT FOLLOW WITH CARDIO Schizoaffective disorder, bipolar type Sleep apnea NO CPAP-DOES NOT FOLLOW WITH ANYONE Tricuspid regurgitation Urinary incontinence Surgical History History of colonoscopy History of esophagogastroduodenoscopy (EGD) History of tonsillectomy History of total knee replacement BILAT [place] teeth extracted 2 Family History Unknown Hypertension Mother Hypertension Sister Diabetes Denies family history of Ovarian cancer Prostate cancer Myocardial infarction Breast cancer Colorectal cancer Social History Smoking Status: Never smoker Second Hand Exposure: No; Hx Alcohol Use: No Hx Substance Use: No Preferred Language: Korean Communication Ability: Effective Visual Impairment: Limited Hearing Ability: Normal [employer] Required: No Beliefs That Will Affect Care: None marital status: Single Current Living Situation: Alone current occupational status: unemployed How many Children do You have: 0 Feels Safe at Home: Yes Seatbelt Use: always Assistive Devices: Glasses and Walker Allergies Allergies Allergy/AdvReac Type Severity Reaction Status Date / Time No Known Allergies Allergy Verified 09/19/21 23:30 Home Meds Home Medications Medication Instructions Recorded Confirmed buspirone 30 mg tablet 30 mg PO BID 01/26/18 09/19/21 ziprasidone HCl 80 mg capsule 80 mg PO BID 01/26/18 09/19/21 divalproex 500 mg tablet,delayed See Rx Instructions .ROUTE .COMPLEX 05/27/19 09/19/21 release ziprasidone HCl 40 mg capsule 40 mg PO BID 05/27/19 09/19/21 perphenazine 8 mg tablet 8 mg PO BID 06/04/20 09/19/21 bupropion HCl 150 mg tablet,12 hr 150 mg PO DAILY 09/13/20 09/19/21 sustained-release lorazepam 1 mg tablet 1 mg PO TID PRN 04/19/21 09/19/21 acetaminophen 650 mg 650 - 1,300 mg PO DIRECTED PRN 09/19/21 09/19/21 tablet,extended release (Tylenol 8 Hour) naproxen 500 mg tablet 500 mg PO BID PRN 09/19/21 09/19/21 Previous Rx's Medication Instructions Recorded incontinence pad, liner, disp #180 ea 06/11/19 blood-glucose meter (OneTouch #1 ea 07/06/19 UltraMini) omeprazole 20 mg capsule,delayed 20 mg PO QAM #90 cap 10/31/20 release lisinopril 10 mg tablet 10 mg PO QAM #90 tab 11/07/20 furosemide 40 mg tablet 40 mg PO QAM #90 tab 12/12/20 montelukast 10 mg tablet 10 mg PO PM #90 tab 01/17/21 blood sugar diagnostic #100 ea 03/27/21 fluticasone 250 mcg-salmeterol 50 1 inh INHALATION BID #60 ea NS 04/03/21 mcg/dose blistr powdr for inhalation famotidine 20 mg tablet 20 mg PO BID #180 tab 05/01/21 potassium chloride 20 mEq 20 meq PO BID #60 tab 05/01/21 tablet,extended release(part/cryst) (Klor-Con M) pravastatin 20 mg tablet 20 mg PO HS #90 tab 05/10/21 albuterol sulfate 90 mcg/actuation 2 puff INHALATION QID PRN #18 gm 06/21/21 aerosol inhaler lancets 33 gauge (OneTouch Delica #100 ea 06/29/21 Lancets) polyethylene glycol 3350 17 17 g PO BID PRN #238 g 07/12/21 gram/dose oral powder loratadine 10 mg tablet 10 mg PO QAM #90 tab 07/21/21 metformin 500 mg tablet 500 mg PO BID #180 tab 07/21/21 finasteride 5 mg tablet 5 mg PO DAILY #90 tab 07/26/21 sildenafil (pulm.hypertension) 20 20 mg PO DAILY PRN #30 tab 07/26/21 mg tablet levothyroxine 50 mcg tablet 175 mcg PO QAM #135 tab 08/16/21 fluticasone propionate 50 1 - 2 spray INTNAS DAILY PRN #16 g 08/31/21 mcg/actuation nasal spray,suspension (Allergy Relief (fluticasone)) aspirin 81 mg tablet,delayed 81 mg PO QAM #90 tab 09/13/21 release Results & Data (ED) Vital Signs Vital Signs - 24 hr 09/19/21 23:16 09/19/21 23:21 09/20/21 01:05 Temperature 36.6 C Temperature Source Oral Pulse Rate 92 H 90 Pulse Rate [Finger] 77 Pulse Rhythm Regular Pulse Rhythm [Finger] Regular Respiratory Rate 18 20 18 Respiratory Effort / Characteristics Non-Labored Spontaneous Non-Labored Spontaneous Non-Labored Spontaneous Respiratory Depth Normal Normal Normal Respiratory Pattern Regular Regular Regular Blood Pressure 116/74 Blood Pressure [Right Arm] 157/93 H Blood Pressure Mean 88 Blood Pressure Mean [Right Arm] 114 Blood Pressure Position Lying Blood Pressure Position [Right Arm] Lying Pulse Oximetry 91 90 98 Oxygen Delivery Method Room Air Room Air Room Air Sepsis Recent Fever Within 48 Hours No Sepsis New/Unexplained Change in Mental Status No Sepsis Action Taken by Nursing No Action Required Home Medications Current Medication List: was personally reviewed by me Laboratory Data Attestation: I reviewed the patient's lab results. Result diagrams: 09/19/21 23:10 09/19/21 23:10 Lab Results 09/19/21 09/19/21 09/19/21 Range/Units 23:07 23:10 23:10 WBC 7.78 (4.8-10.8) K/uL RBC 5.15 (4.7-6.1) M/uL Hgb 14.8 (14.0-18.0) g/dL Hct 42.1 (42-52) % MCV 81.7 (80-100) fL MCH 28.7 (25-34) pg MCHC 35.2 (32-36) g/dL RDW Std Deviation 40.3 (36.4-46.3) fL RDW Coeff of Joey 13.5 (11.5-14.5) % Plt Count 253 (130-400) K/uL MPV 8.6 (7.4-10.4) fL Immature Gran % (Auto) 0.3 % Neut % (Auto) 56.3 % Lymph % (Auto) 33.2 % Robertson % (Auto) 8.9 % Eos % (Auto) 1.2 % Baso % (Auto) 0.1 % Neut # (Auto) 4.39 (1.4-6.5) K/uL Lymph # (Auto) 2.58 (1.2-3.4) K/uL Robertson # (Auto) 0.69 H (0.11-0.59) K/uL Eos # (Auto) 0.09 (0-0.5) K/uL Baso # (Auto) 0.01 (0-0.2) K/uL Immature Gran # (Auto) 0.02 (0.00-0.02) K/uL PT (9.0-12.0) Seconds INR (0.9-1.1) APTT (21.0-31.0) Seconds PTT Ratio Sodium 125 L (136-145) mmol/L Potassium 4.2 (3.5-5.1) mmol/L Chloride 95 L (98-107) mmol/L Carbon Dioxide 20 L (21-32) mmol/L Anion Gap 10 (3-11) BUN 13 (6-23) mg/dl Creatinine 0.97 (0.6-1.4) mg/dl Est Cr Clr Drug Dosing 95.6 ml/min Est GFR ( Amer) 95.9 ml/min Est GFR (Non-Af Amer) 82.7 ml/min BUN/Creatinine Ratio 13.4 (10-20) Glucose 101 H (70-99(Fasting)) mg/dl Calcium 9.3 (8.5-10.1) mg/dl Magnesium 1.8 (1.7-2.4) mg/dl Total Bilirubin 0.3 (0.2-1.0) mg/dl AST 20 (13-39) U/L ALT 15 (7-52) U/L Alkaline Phosphatase 64 (34-104) U/L Troponin I High Sens 6.2 (0-20) pg/ml B-Natriuretic Peptide (0-100) pg/ml Total Protein 6.6 (6.0-8.3) gm/dl Albumin 4.1 (3.4-5.0) gm/dl Globulin 2.5 (2.5-4.0) gm/dl Albumin/Globulin Ratio 1.6 (0.9-2) Urine Color Urine Appearance (Clear) Urine pH (4.5-7.5) Ur Specific [place] (1.000-1.030) Urine Protein (Negative) Urine Glucose (UA) (Negative) Urine Ketones (Negative) Urine Blood (Negative) Urine Nitrite (Negative) Urine Bilirubin (Negative) Urine Urobilinogen (Negative) Ur Leukocyte Esterase (Negative) Ur Random Sodium mmol/L Valproic Acid (50-100) mcg/ml SARS-CoV-2 (PCR) NEGATIVE (Negative) Influenza Type A (PCR) Negative (Neg) Influenza Type B (PCR) Negative (Neg) RSV (RT-PCR) Negative (Neg) 09/19/21 09/19/21 09/19/21 Range/Units 23:10 23:10 23:10 WBC (4.8-10.8) K/uL RBC (4.7-6.1) M/uL Hgb (14.0-18.0) g/dL Hct (42-52) % MCV (80-100) fL MCH (25-34) pg MCHC (32-36) g/dL RDW Std Deviation (36.4-46.3) fL RDW Coeff of Joey (11.5-14.5) % Plt Count (130-400) K/uL MPV (7.4-10.4) fL Immature Gran % (Auto) % Neut % (Auto) % Lymph % (Auto) % Robertson % (Auto) % Eos % (Auto) % Baso % (Auto) % Neut # (Auto) (1.4-6.5) K/uL Lymph # (Auto) (1.2-3.4) K/uL Robertson # (Auto) (0.11-0.59) K/uL Eos # (Auto) (0-0.5) K/uL Baso # (Auto) (0-0.2) K/uL Immature Gran # (Auto) (0.00-0.02) K/uL PT 10.6 (9.0-12.0) Seconds INR 1.0 (0.9-1.1) APTT 30.4 (21.0-31.0) Seconds PTT Ratio 1.1 Sodium (136-145) mmol/L Potassium (3.5-5.1) mmol/L Chloride (98-107) mmol/L Carbon Dioxide (21-32) mmol/L Anion Gap (3-11) BUN (6-23) mg/dl Creatinine (0.6-1.4) mg/dl Est Cr Clr Drug Dosing ml/min Est GFR ( Amer) ml/min Est GFR (Non-Af Amer) ml/min BUN/Creatinine Ratio (10-20) Glucose (70-99(Fasting)) mg/dl Calcium (8.5-10.1) mg/dl Magnesium (1.7-2.4) mg/dl Total Bilirubin (0.2-1.0) mg/dl AST (13-39) U/L ALT (7-52) U/L Alkaline Phosphatase (34-104) U/L Troponin I High Sens (0-20) pg/ml B-Natriuretic Peptide 65 (0-100) pg/ml Total Protein (6.0-8.3) gm/dl Albumin (3.4-5.0) gm/dl Globulin (2.5-4.0) gm/dl Albumin/Globulin Ratio (0.9-2) Urine Color Urine Appearance (Clear) Urine pH (4.5-7.5) Ur Specific [place] (1.000-1.030) Urine Protein (Negative) Urine Glucose (UA) (Negative) Urine Ketones (Negative) Urine Blood (Negative) Urine Nitrite (Negative) Urine Bilirubin (Negative) Urine Urobilinogen (Negative) Ur Leukocyte Esterase (Negative) Ur Random Sodium mmol/L Valproic Acid 65 (50-100) mcg/ml SARS-CoV-2 (PCR) (Negative) Influenza Type A (PCR) (Neg) Influenza Type B (PCR) (Neg) RSV (RT-PCR) (Neg) 09/19/21 09/19/21 Range/Units 23:50 23:50 WBC (4.8-10.8) K/uL RBC (4.7-6.1) M/uL Hgb (14.0-18.0) g/dL Hct (42-52) % MCV (80-100) fL MCH (25-34) pg MCHC (32-36) g/dL RDW Std Deviation (36.4-46.3) fL RDW Coeff of Joey (11.5-14.5) % Plt Count (130-400) K/uL MPV (7.4-10.4) fL Immature Gran % (Auto) % Neut % (Auto) % Lymph % (Auto) % Robertson % (Auto) % Eos % (Auto) % Baso % (Auto) % Neut # (Auto) (1.4-6.5) K/uL Lymph # (Auto) (1.2-3.4) K/uL Robertson # (Auto) (0.11-0.59) K/uL Eos # (Auto) (0-0.5) K/uL Baso # (Auto) (0-0.2) K/uL Immature Gran # (Auto) (0.00-0.02) K/uL PT (9.0-12.0) Seconds INR (0.9-1.1) APTT (21.0-31.0) Seconds PTT Ratio Sodium (136-145) mmol/L Potassium (3.5-5.1) mmol/L Chloride (98-107) mmol/L Carbon Dioxide (21-32) mmol/L Anion Gap (3-11) BUN (6-23) mg/dl Creatinine (0.6-1.4) mg/dl Est Cr Clr Drug Dosing ml/min Est GFR ( Amer) ml/min Est GFR (Non-Af Amer) ml/min BUN/Creatinine Ratio (10-20) Glucose (70-99(Fasting)) mg/dl Calcium (8.5-10.1) mg/dl Magnesium (1.7-2.4) mg/dl Total Bilirubin (0.2-1.0) mg/dl AST (13-39) U/L ALT (7-52) U/L Alkaline Phosphatase (34-104) U/L Troponin I High Sens (0-20) pg/ml B-Natriuretic Peptide (0-100) pg/ml Total Protein (6.0-8.3) gm/dl Albumin (3.4-5.0) gm/dl Globulin (2.5-4.0) gm/dl Albumin/Globulin Ratio (0.9-2) Urine Color Yellow Urine Appearance Clear (Clear) Urine pH 7.0 (4.5-7.5) Ur Specific [place] 1.006 (1.000-1.030) Urine Protein Negative (Negative) Urine Glucose (UA) Negative (Negative) Urine Ketones Negative (Negative) Urine Blood Negative (Negative) Urine Nitrite Negative (Negative) Urine Bilirubin Negative (Negative) Urine Urobilinogen Negative (Negative) Ur Leukocyte Esterase Negative (Negative) Ur Random Sodium 19 mmol/L Valproic Acid (50-100) mcg/ml SARS-CoV-2 (PCR) (Negative) Influenza Type A (PCR) (Neg) Influenza Type B (PCR) (Neg) RSV (RT-PCR) (Neg) Administered Medications Discontinued Medications Furosemide (Furosemide 40 Mg/4 Ml Vial) 40 mg IV ONE ONE Stop: 09/20/21 01:03 Last Admin: 09/20/21 01:12 Dose: 40 mg Documented by: [id number] Discharge Plan Visit Data Chief Complaint: Shortness of Breath/Dyspnea Stated Complaint: BREATHING DIFFICULTY ED Provider: Yohannes Contreras Discharge Problem: CHF (congestive heart failure), Acute hyponatremia, LOW (dyspnea on exertion) Patient Disposition: Being Evaluated by Hospitalist Forms Stand Alone Forms: [facility] Prescriptions Prescriptions: No Action (DME) incontinence pad, liner, disp Pad See Rx Instructions .ROUTE .MEDSUPPLY Qty: 180 RF: 3 (DME) blood-glucose meter [[employer] UltraMini] Kit See Rx Instructions .ROUTE .MEDSUPPLY Qty: 1 RF: 0 omeprazole 20 mg capsule,delayed release(DR/EC) 20 mg PO QAM Qty: 90 RF: 3 lisinopril 10 mg tablet 10 mg PO QAM Qty: 90 RF: 3 furosemide 40 mg tablet 40 mg PO QAM Qty: 90 RF: 3 montelukast 10 mg tablet 10 mg PO PM Qty: 90 RF: 3 (DME) OneTouch Ultra Blue Test Strip Strip See Rx Instructions .ROUTE .MEDSUPPLY Qty: 100 RF: 5 fluticasone propion-salmeterol 250-50 mcg/dose blister with device 1 inh inhalation BID Qty: 60 RF: 3 potassium chloride [Klor-Con M20] 20 mEq tablet,ER particles/crystals 20 meq PO BID Qty: 60 RF: 5 famotidine 20 mg tablet 20 mg PO BID Qty: 180 RF: 3 pravastatin 20 mg tablet 20 mg PO HS Qty: 90 RF: 3 albuterol sulfate 90 mcg/actuation HFA aerosol inhaler 2 puff INHALATION QID PRN (Reason: Shortness Of Breath) Qty: 18 RF: 3 (DME) lancets [OneTouch Delica Lancets] 33 gauge misc See Rx Instructions .ROUTE .MEDSUPPLY Qty: 100 RF: 5 polyethylene glycol 3350 17 gram/dose powder 17 g PO BID PRN (Reason: Constipation) Qty: 238 RF: 3 loratadine 10 mg tablet 10 mg PO QAM Qty: 90 RF: 3 metformin 500 mg tablet 500 mg PO BID Qty: 180 RF: 3 levothyroxine 50 mcg tablet 175 mcg PO QAM Qty: 135 RF: 1 fluticasone propionate [Allergy Relief (fluticasone)] 50 mcg/actuation spray,suspension 1 - 2 spray INTNAS DAILY PRN (Reason: Allergy Symptoms) Qty: 16 RF: 3 aspirin 81 mg tablet,delayed release (DR/EC) 81 mg PO QAM Qty: 90 RF: 3 sildenafil (pulm.hypertension) 20 mg tablet 20 mg PO DAILY PRN (Reason: sexual activity) Qty: 30 RF: 5 finasteride 5 mg tablet 5 mg PO DAILY Qty: 90 RF: 3 lorazepam 1 mg tablet 1 mg PO TID PRN (Reason: Anxiety) RF: 0 divalproex 500 mg tablet,delayed release (DR/EC) See Rx Instructions .ROUTE .COMPLEX RF: 0 ziprasidone HCl 40 mg capsule 40 mg PO BID RF: 0 ziprasidone HCl 80 mg Capsule 80 mg PO BID RF: 0 buspirone 30 mg Tablet 30 mg PO BID RF: 0 perphenazine 8 mg tablet 8 mg PO BID RF: 0 bupropion HCl 150 mg Tablet Sustained-Release 12 Hr 150 mg PO DAILY RF: 0 naproxen 500 mg tablet 500 mg PO BID PRN (Reason: Pain) RF: 0 acetaminophen [Tylenol 8 Hour] 650 mg Tablet Extended Release 650 - 1,300 mg PO DIRECTED PRN (Reason: Pain) RF: 0 Referrals Referrals: ProYohannes MD [Primary Care Provider] -
[2021-09-19 23:29] LABS: Basophils # (auto) 0.01 K/uL (0-0.2); Basophils % (auto) 0.1 %; Eosinophils # (auto) 0.09 K/uL (0-0.5); Eosinophils % (auto) 1.2 %; Hematocrit (blood only) 42.1 % (42-52); Hemoglobin 14.8 g/dL (14.0-18.0); Immature Granulocytes # (auto) 0.02 K/uL (0.00-0.02); Immature Granulocytes % (auto) 0.3 %; Lymphocytes # (auto) 2.58 K/uL (1.2-3.4); Lymphocytes % (auto) 33.2 %; Mean Corpuscular Hemoglobin 28.7 pg (25-34); Mean Corpuscular Hgb Conc 35.2 g/dL (32-36); Mean Corpuscular Volume 81.7 fL (80-100); Mean Platelet Volume 8.6 fL (7.4-10.4); Monocytes # (auto) 0.69 K/uL (0.11-0.59); Monocytes % (auto) 8.9 %; Neutrophils # (auto) 4.39 K/uL (1.4-6.5); Neutrophils % (auto) 56.3 %; Platelet Count 253 K/uL (130-400); RDW Coefficient of Variation 13.5 % (11.5-14.5); RDW Standard Deviation 40.3 fL (36.4-46.3); Red Blood Count 5.15 M/uL (4.7-6.1); White Blood Count 7.78 K/uL (4.8-10.8)
[2021-09-19 23:55] LABS: Troponin I High Sensitivity 6.2 pg/ml (0-20)
[2021-09-20 00:06] LABS: Albumin Globulin Ratio 1.6 (0.9-2); Albumin Level 4.1 gm/dl (3.4-5.0); BUN Creatinine Ratio 13.4 (10-20); Bilirubin,Total 0.3 mg/dl (0.2-1.0); Calcium 9.3 mg/dl (8.5-10.1); Creatinine Clr Calc Pharmacy 95.6 ml/min; Est GFR (African American) 95.9 ml/min; Est GFR (Non-African American) 82.7 ml/min; Globulin 2.5 gm/dl (2.5-4.0); Magnesium 1.8 mg/dl (1.7-2.4); Potassium 4.2 mmol/L (3.5-5.1); Total Protein 6.6 gm/dl (6.0-8.3)
[2021-09-20 00:14] LABS: Partial Thromboplastin Ratio 1.1; Partial Thromboplastin Time 30.4 Seconds (21.0-31.0); Prothrombin Time 10.6 Seconds (9.0-12.0)
[2021-09-20 00:23] LABS: Appearance Urine Clear (Clear); Bilirubin Urine Negative (Negative); Blood Urine Negative (Negative); Color Urine Yellow; Glucose Urine UA Negative (Negative); Ketones Urine Negative (Negative); Leukocyte Esterase Urine Negative (Negative); Nitrite Urine Negative (Negative); Protein Urine Negative (Negative); Specific Gravity Urine 1.006 (1.000-1.030); Urobilinogen Urine Negative (Negative)
[2021-09-20 00:52] LABS: Influenza A virus by PCR Negative (Neg); Influenza B virus by PCR Negative (Neg); RSV by PCR Negative (Neg); SARS CoV2 RNA(COVID-19) InHosp NEGATIVE (Negative)
[2021-09-20] MEDS ORDERED: FUROSEMIDE 40 MG/4 ML VIAL IV ONE (01:02)
--- NOTE | 2021-09-20 01:21 | History & Physical Report ---
Date of Service September 20, 2021 Assessment & Plan (1) Shortness of breath: Plan: Lam Wong is a 61yo male with PMHx significant for asthma, HTN, HLD, hypothyroidism, T2DM (A1c 5.7 on 07/20/2021), Bipolar I disorder and Schizophrenia who presented to [facility] ED on 09/20 for shortness of breath. Shortness of Breath No hypoxia, lungs clear on exam, CXR unremarkable, and BNP normal. Suspect this is largely due to patient's anxiety associated with chronic psychiatric conditions, as patient reports sometimes feeling short of breath when he gets anxious. - will order PRN Albuterol nebs, given h/o asthma LE edema Chronic, mild, non-pitting. Suspect largely due to venous insufficiency although psychiatric medications may also be playing a role (LE edema is known side effect of Ziprasidone). - s/p Lasix 40mg IV x1 in ED - no further Lasix will be ordered as this will likely only exacerbate hyponatremia (see below) - follow clinically for changes - counseled on getting compression stockings as outpatient Hyponatremia Chronic baseline at ~130, with Na of 125 in the ED. 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 Additionally SIADH may be playing a role as both Ziprasidone and Perphenazine can cause SIADH. Lastly, daily Lasix likely also contributing. - serum osmols low at 265. urine osmol 175, urine Na 19 - indicating SIADH - fluid restriction of 1L while hospitalized - counseled on fluid restriction as outpatient as well - needs close f/u with outpatient Psychiatrist for consideration of change in regimen, given possible contribution to SIADH ?CHF Previous diagnosis of this. Patient currently euvolemic. Unclear if Lasix has been prescribed primarily for LE edema. No previous TTE in our chart. - TTE ordered - hold home Lasix for now - consider stopping at discharge depending on TTE results - close f/u with PCP Bipolar I Disorder; Schizophrenia Patient reportedly has psychiatrist in town who manages his medications. - continue home Depakote, Ziprasidone, Perphenazine, Bupropion, Buspirone, and Lorazepam PRN - recommend close f/u with Psychiatrist for further management, with understanding that patient seems to have uncontrolled anxiety currently as well as several problems mentioned above which may be due to side effects of current psychiatric med regimen Other Chronic Medical Conditions Asthma: rarely uses Albuterol, takes other meds/inhalers as prescribed. Continue home Singulair and daily inhaler HLD: continue home statin and baby Aspirin HTN: continue home Lisinopril Hypothyroidism: TSH 1.37 in 06/2021. continue home Synthroid T2DM: A1c 5.7 in 06/2021. Hold home meds, SSI while hospitalized. GERD: Protonix per hospital formulary, home Pepcid (2) Acute hyponatremia: (3) Leg edema: (4) Schizophrenia: (5) Bipolar 1 disorder: (6) Asthma: (7) GERD (gastroesophageal reflux disease): (8) Hypertension: (9) Hypothyroidism: (10) Hyperlipidemia: History of Present Illness Chief Complaint: shortness of breath Primary Care Provider: Yohannes Carrillo MD Lam Wong is a 61yo male with PMHx significant for asthma, HTN, HLD, hypothyroidism, T2DM (A1c 5.7 on 07/20/2021), Bipolar I disorder and Schizophrenia who presented to [facility] ED on 09/20 for shortness of breath x1 day. Tried using Albuterol inhaler without relief. Of note the patient denies fever/chills, cough, congestion or any symptoms of recent illness. He does admit that he sometimes feels short of breath when he gets anxious. Also reports that he drinks at least 3-4L of water per day because he "has a need to". In the ED the patient was hemodynamically stable without hypoxia on room air. Labs significant for Na 125 (was 136 in 06/2021). CBC/CMP otherwise unremarkable. CXR unremarkable. COVID/flu/RSV negative. Patient was given Lasix 40mg IV x1 in the ED. Allergies Allergy/AdvReac Type Severity Reaction Status Date / Time No Known Allergies Allergy Verified 09/19/21 23:30 Home Medications Medication Instructions Recorded Confirmed Type buspirone 30 mg tablet 30 mg PO BID 01/26/18 09/19/21 History ziprasidone HCl 80 mg capsule 80 mg PO BID 01/26/18 09/19/21 History divalproex 500 mg tablet,delayed See Rx Instructions .ROUTE .COMPLEX 05/27/19 09/19/21 History release ziprasidone HCl 40 mg capsule 40 mg PO BID 05/27/19 09/19/21 History incontinence pad, liner, disp #180 ea 06/11/19 04/19/21 Rx blood-glucose meter ([employer] #1 ea 07/06/19 04/19/21 Rx UltraMini) perphenazine 8 mg tablet 8 mg PO BID 06/04/20 09/19/21 History bupropion HCl 150 mg tablet,12 hr 150 mg PO DAILY 09/13/20 09/19/21 History sustained-release omeprazole 20 mg capsule,delayed 20 mg PO QAM #90 cap 10/31/20 09/19/21 Rx release lisinopril 10 mg tablet 10 mg PO QAM #90 tab 11/07/20 09/19/21 Rx montelukast 10 mg tablet 10 mg PO PM #90 tab 01/17/21 09/19/21 Rx blood sugar diagnostic #100 ea 03/27/21 04/19/21 Rx fluticasone 250 mcg-salmeterol 50 1 inh INHALATION BID #60 ea NS 04/03/2109/19 Rx mcg/dose blistr powdr for inhalation lorazepam 1 mg tablet 1 mg PO TID PRN 04/19/21 09/19/21 History famotidine 20 mg tablet 20 mg PO BID #180 tab 05/01/21 09/19/21 Rx pravastatin 20 mg tablet 20 mg PO HS #90 tab 05/10/21 09/19/21 Rx albuterol sulfate 90 mcg/actuation 2 puff INHALATION QID PRN #18 gm 06/21/21 09/19/21 Rx aerosol inhaler lancets 33 gauge ([employer] Delica #100 ea 06/29/21 Rx Lancets) polyethylene glycol 3350 17 17 g PO BID PRN #238 g 07/12/21 09/19/21 Rx gram/dose oral powder loratadine 10 mg tablet 10 mg PO QAM #90 tab 07/21/21 09/19/21 Rx metformin 500 mg tablet 500 mg PO BID #180 tab 07/21/21 09/19/21 Rx finasteride 5 mg tablet 5 mg PO DAILY #90 tab 07/26/21 09/19/21 Rx sildenafil (pulm.hypertension) 20 20 mg PO DAILY PRN #30 tab 07/26/21 09/19/21 Rx mg tablet levothyroxine 50 mcg tablet 175 mcg PO QAM #135 tab 08/16/21 09/19/21 Rx fluticasone propionate 50 1 - 2 spray INTNAS DAILY PRN #16 g 08/31/21 09/19/21 Rx mcg/actuation nasal spray,suspension (Allergy Relief (fluticasone)) aspirin 81 mg tablet,delayed 81 mg PO QAM #90 tab 09/13/21 09/19/21 Rx release acetaminophen 650 mg 650 - 1,300 mg PO DIRECTED PRN 09/19/21 09/19/21 History tablet,extended release (Tylenol 8 Hour) naproxen 500 mg tablet 500 mg PO BID PRN 09/19/21 09/19/21 History Past Med/Surg History Medical History Asthma RARE RES INH USE Bipolar 1 disorder STABLE PER PATIENT BPH (benign prostatic hyperplasia) CKD (chronic kidney disease) PT STATES HE HAS THIS BUT UNSURE OF DETAILS- DOESNT FOLLOW WITH ANYONE Diabetes mellitus, type 2 Facial basal cell cancer REMOVED GERD (gastroesophageal reflux disease) Hearing deficit History of pneumonia RESOLVED Hyperlipidemia Hypertension Hypothyroidism (05/20/12) Mitral regurgitation - FOLLOWS WITH PCP THROUGH [facility] No pertinent past medical history Osteoarthritis Right bundle branch block with left anterior fascicular block DOESNT FOLLOW WITH CARDIO Schizoaffective disorder, bipolar type Sleep apnea NO CPAP-DOES NOT FOLLOW WITH ANYONE Tricuspid regurgitation Urinary incontinence Surgical History History of colonoscopy History of esophagogastroduodenoscopy (EGD) History of tonsillectomy History of total knee replacement BILAT [place] teeth extracted 2 Family History Unknown Hypertension Mother Hypertension Sister Diabetes Denies family history of Ovarian cancer Prostate cancer Myocardial infarction Breast cancer Colorectal cancer Social History Smoking Status: Never smoker Second Hand Exposure: No; Hx Alcohol Use: No Hx Substance Use: No Preferred Language: Bengali Communication Ability: Effective Visual Impairment: Limited Hearing Ability: Normal Hat Liner Required: No Beliefs That Will Affect Care: None marital status: Single Current Living Situation: Alone current occupational status: unemployed How many Children do You have: 0 Other Information That Helps Us Care for You: No Feels Safe at Home: No Is there a partner from a previous relationship who is making you feel unsafe now?: No Any Concerns about Your Family Situation: No Would You Like to Speak to Someone About Your Situation: No Safety Concerns: Feels Safe At This Time Seatbelt Use: always Assistive Devices: None Review of Systems Review of Systems: All systems reviewed & are unremarkable except as noted in HPI & below Physical Exam Physical Exam: General: A&Ox3. Cooperative. Mildly anxious. HEENT: Atraumatic, normocephalic. Pulm: CTAB A&P. -wheezes, -rales, -rhonchi. Symmetrical chest rise. No increase work of breathing. No respiratory distress. Cardiac: RRR, -mrg. Radial pulses intact and symmetrical. Mild non-pitting pedal edema Abdominal: soft, non-tender, non-distended, BS x 4 Skin: warm, dry, no rash Results & Data Results & Data ([facility]) Vital Signs (Past 12 Hours) Vital Signs Temp Pulse Resp BP Pulse Ox 09/19/21 23:21 90 20 90 09/19/21 23:16 36.6 C 92 H 18 116/74 91 Code Status & VTE Plan Code Status full code - discussed with patient Supervising Physician Co-Signing Physician Notes Attending addendum: I have physically seen this patient, have supervised the medical residents activities, and agree with the H&P unless as otherwise noted. Assessment and Plan: Hyponatremia- Sodium 125 upon admission, with base rate of 130 Differential including: Medications such as ziprasidone and perphenazine causing SIADH, psychogenic polydipsia, furosemide Serum osmolality 265 Urine osmolality 175 Urine sodium 19, although not reliable while on furosemide Serial BMP and magnesium levels Fluid restriction to 1 L as noted Anxiety/bipolar 1 disorder/schizophrenia- Continue current medications. Dosings of the ziprasidone and perphenazine, as noted above, may need to be adjusted if contributing to low sodium as discussed Adjust medications per psychiatry Remaining orders and notations as noted Resident Activity Tracking Resident Involvement: Resident Care Provided Care Provided: Adult Hospital Medicine
[2021-09-20] MEDS ORDERED: MELATONIN 3 MG TAB PO PRN (01:52)
[2021-09-20] MEDS ORDERED: FLUTICASONE PROPIONATE NA SPR 16 GM BTL PRN (02:53)
[2021-09-20] MEDS ORDERED: POLYETHYLENE (MIRALAX) 17 GM PACK PO PRN (02:53)
[2021-09-20] MEDS ORDERED: LORazepam 1 MG TAB PO PRN (02:53)
[2021-09-20] MEDS ORDERED: GLUCOSE 40% GEL 15 GM TUBE PO PRN (02:53)
[2021-09-20] MEDS ORDERED: ALBUT/IPRATROP 3MG/0.5MG NEB 3 ML VIAL NEB PRN (02:53)
[2021-09-20] MEDS ORDERED: DEXTROSE 50% 50 ML SYRINGE IV PRN (02:53)
[2021-09-20] MEDS ORDERED: NAPROXEN 250 MG TAB PO PRN (02:53)
[2021-09-20] MEDS ORDERED: GLUCAGON FOR INJ 1 MG VIAL SQ PRN (02:53)
[2021-09-20] MEDS ORDERED: CARBOHYDRATES FOR HYPOGLYCEMIA PO PRN (02:53)
[2021-09-20] MEDS ORDERED: GLUCOSE 10 TABS/TUBE PO PRN (02:53)
[2021-09-20] MEDS ORDERED: LEVOTHYROXINE SODIUM 175 MCG TABLET PO SCH (06:30)
--- NOTE | 2021-09-20 06:37 | XRay Report ---
XR chest 1V portable CLINICAL HISTORY: Dyspnea. COMPARISON STUDY: Chest radiograph July 12, 2020. FINDINGS: Lung volumes are normal. Lungs are clear. There is no pneumothorax or pleural effusion. Car diac size is normal. Tortuosity of the descending thoracic aorta is unchanged. There is no evidence f or pulmonary edema. IMPRESSION: No acute cardiopulmonary findings. ACT 112: Negative or not required by law. Electronically signed by: Quoc Kan M.D. 09/20/2021 6:36 AM
[2021-09-20] MEDS ORDERED: LORATADINE 10 MG TAB PO SCH (09:00)
[2021-09-20] MEDS ORDERED: POTASSIUM CHLORIDE CRTAB 20 MEQ TABCR PO SCH (09:00)
[2021-09-20] MEDS ORDERED: ziprasidone HCL 80 MG CAP PO SCH (09:00)
[2021-09-20] MEDS ORDERED: buPROPion SR 150 MG TABCR PO SCH (09:00)
[2021-09-20] MEDS ORDERED: lisinopril 10 MG TAB PO SCH (09:00)
[2021-09-20] MEDS ORDERED: ENOXAPARIN INJ 40 MG/0.4 ML SYR SQ SCH (09:00)
[2021-09-20] MEDS ORDERED: PANTOprazole 40 MG TAB PO SCH (09:00)
[2021-09-20] MEDS ORDERED: PERPHENAZINE 2 MG TABLET PO SCH (09:00)
[2021-09-20] MEDS ORDERED: busPIRone 15 MG TAB PO SCH (09:00)
[2021-09-20] MEDS ORDERED: FLUTICASONE/VILANTEROL 200/25MCG 14 PUFFS/INHALER INH SCH (09:00)
[2021-09-20] MEDS ORDERED: FAMOTIDINE 20 MG TAB PO SCH (09:00)
[2021-09-20] MEDS ORDERED: DIVALPROEX EXTENDED RELEASE 500 MG TAB PO SCH ×2 (09:00→21:00)
[2021-09-20] MEDS ORDERED: ASPIRIN 81 MG ECTAB PO SCH (09:00)
[2021-09-20] MEDS ORDERED: FINASTERIDE 5 MG TAB PO SCH (09:00)
[2021-09-20] MEDS: INSULIN ASPART PER UNIT SC SCH ×2 (09:10→13:01)
[2021-09-20 09:29] LABS: BUN Creatinine Ratio 12.1 (10-20); Calcium 9.7 mg/dl (8.5-10.1); Creatinine Clr Calc Pharmacy 82.9 ml/min; Est GFR (African American) 85.2 ml/min; Est GFR (Non-African American) 73.5 ml/min; Phosphorus 3.5 mg/dl (2.5-4.9); Potassium 4.2 mmol/L (3.5-5.1)
--- NOTE | 2021-09-20 13:26 | Discharge Summary ---
Date of Service September 20, 2021 Admission HPI Per Admitting Provider Lam Wong is a 61yo male with PMHx significant for asthma, HTN, HLD, hypothyroidism, T2DM (A1c 5.7 on 07/20/2021), Bipolar I disorder and Schizophrenia who presented to [facility] ED on 09/20 for shortness of breath x1 day. Tried using Albuterol inhaler without relief. Of note the patient denies fever/chills, cough, congestion or any symptoms of recent illness. He does admit that he sometimes feels short of breath when he gets anxious. Also reports that he drinks at least 3-4L of water per day because he "has a need to". In the ED the patient was hemodynamically stable without hypoxia on room air. Labs significant for Na 125 (was 136 in 06/2021). CBC/CMP otherwise unremarkable. CXR unremarkable. COVID/flu/RSV negative. Patient was given Lasix 40mg IV x1 in the ED. Principal Diagnosis 1. SOB- likely Panic attack (could also be related to sleep apnea) 2. 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 NAD. HEENT: Head is AT/NC. Buccal mucosa is moist and pink Neck: No JVD. Negative hepatojugular reflex Cardiac: RRR without M/G/R Lungs: CTA without W/R/R Abdomen: Normoactive X4. Soft and nontender in all quadrants. Extremities: + Adiposity without true pitting edema Neuro: A&O X4. Cranial nerves II through XII are grossly intact. No focal neuro deficits Skin: No obvious skin lesions or rashes Psych: Patient anxious Discharge Data Allergies Allergy/AdvReac Type Severity Reaction Status Date / Time No Known Allergies Allergy Verified 09/19/21 23:30 Consultations 09/20/21 01:33 ED Decision to Admit Stat Hospital Course (1) Shortness of breath: 81-year-old white male with a past medical history of schizoaffective disorder, bipolar, presented complaining of shortness of breath. Occurred overnight. Reports he was very stressed and believes that he may have been exposed to COVID which is why he sought medical attention. He felt he needed a COVID test. When his COVID test came back negative, his shortness of breath improved. He denies fevers, chills, cough, orthopnea, PND. Does have edema of the lower extremities but reports this is chronic. CXR shows no acute cardiopulmonary process Patient is hemodynamically stable and his pulse ox is 95% on room air Highly suspect patient had a panic attack as the source of his shortness of breath. It is possible that apnea may be contributing. He does have a diagnosis of LATESHA. He used to have a CPAP but reports it broke An echocardiogram was completed: Results pending At this point, his shortness of breath has resolved. He is medically and hemodynamically stable for discharge to home. Recommend repeat sleep study for CPAP (2) Acute hyponatremia: Presenting sodium low at 125. Patient asymptomatic Upon review of old records, has chronic hyponatremia Does take multiple psychiatric medications including Depakote, Malka, Wellbutrin, and BuSpar. In addition, is on chronic Lasix therapy for "edema". Sodium has improved with a fluid restricted diet and with holding Lasix. Currently 129 TSH obtained and normal Upon lengthy discussion, he drinks more than 4 L of fluid a day. I do believe he has psychogenic polydipsia likely related to his medications Lengthy discussion with patient regarding the importance of a fluid restricted maintenance diet Would continue to hold Lasix for now. If his echocardiogram does show evidence of diastolic dysfunction and his edema worsens, can consider resumption with close following of labs. This is at the discretion of his PCP Patient is asymptomatic and very anxious to be discharged home. His sodium level is 129 which is close to his baseline (130). I do feel that he is medically and hemodynamically stable for discharge to home. Will obtain follow-up labs on Saturdayorder given. Follow-up with PCP regarding hyponatremia. If persistent, may need to consider changing his antipsychotic/antidepressant medications (at the discretion of PCP/psych) (3) Leg edema: Patient with current adiposity but no pitting edema Reports takes Lasix on account of his swelling Does have documented vascular insufficiency and lymphedema At this point, I am not certain that Lasix is necessary. An echocardiogram has been obtained but results are pending. He very well could have some diastolic dysfunction from underlying LATESHA Patient should continue to hold Lasix (on account of his hyponatremia). Follow-up with PCP to determine need for resumption of Lasix In the interim, recommend keeping legs elevated. Also can utilize compression stockings. (4) Type 2 diabetes mellitus: Continue prehospital metformin (5) Schizophrenia: Continue prehospital Depakote, Geodon, Wellbutrin and BuSpar as prescribed by psych Follow-up with psychiatry. If hyponatremia persist, may need to consider alternative medications (6) Hypothyroidism: TSH normal at 0.9. Continue Synthroid (7) Hyperlipidemia: Continue pravastatin (8) Hypertension: Continue lisinopril Sodium is in acceptable range/close to baseline. Patient has been very anxious and agitated wanting to be discharged. His shortness of breath has resolved knowing his COVID test is negative. His hyponatremia persists but is up trending and close to baseline. At this point, there is no medical contraindication to proceeding with discharge today. He did hav and echocardiogram. Results are not available for me at this time. He should follow-up with his PCP regarding this. I do recommend an overnight sleep study and follow-up labs. Order given for follow-up basic metabolic panel to be obtained on Saturday or Saturday of next week. Follow-up with PCP within 7 to 10 days. Total Time Total Time Spent Total Time Spent (In Minutes): 45 minutes including time spent with patient. He requested I go back to his room multiple times throughout the course of the day to answer questions (not medically related) Discharge Plan Discharge Items Patient Disposition: Home - Self-Care Reason For Visit: SHORTNESS OF BREATH, HYPONATREMIA Discharge Diagnosis: 1. SOB- likely Panic attack 2. 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 Thanks) Diet: Carb Consistent or DM2 Fluids: 1200ml (5 cups) Ambulatory Orders: Basic Metabolic Panel (Routine) Timeframe: [id number] Location: Determined by Patient Ordered By: Irina Julian Attending Provider Instructions: You presented the hospital complaining of shortness of breath. You were worked up and I suspect this was likely related to a panic attack. Coincidentally, you were found to have a low sodium level. I suspect this is likely due to your fluid intake. You admit to drinking a significant amount of liquids. This is likely a result of some of the medications you are on that causes psychogenic polydipsia (meaning that you drink a lot of water). Your sodium level has improved. You should maintain a fluid restricted diet (no more than 5 cups a day/1200 mL) You should have follow-up labs on Saturday (because Saturday is )see order. If you are sodium remains low, may need to discuss transitioning your psychiatric medicationsat discretion of your PCP/psychiatry You Lasix was held (as this can contribute to a low sodium level). You do not have a reported history of congestive heart failure. Continue to hold your Lasix until seen in follow up by your PCP. He can review the results of your Echocardiogram (should you decide to stay to have this performed) and determine need for Lasix. If it is being utilized strictly for swelling of the legs, I would use compression stockings and leg elevation instead. With sleep apnea, this causes right-sided heart strain which in turn can lead to fluid retention. You were very anxious to be discharged from the hospital. Honestly, there is no medical reason why you need to stay. We were going to do an echocardiogram prior to discharge but again you were very anxious and paranoid and wanted this discharge expedited. The echocardiogram cathodic protection technician is going to try to facilitate your echocardiogram prior to discharge. Results will not be available. You need to follow-up with your PCP regarding this. If not done prior to discharge, I do recommend an echocardiogram be performed. In addition, you have sleep apnea and do not have a CPAP. This might be contributing to this shortness of breath episode. I recommend you follow up with your PCP and discuss an overnight sleep study. With your PCP within 7 to 10 days Return to the ED for any new or worsening symptoms Pending Studies at Discharge: Yes Studies:: echocardiogram Stand-Alone Forms: My [facility] Medications and DC Order Prescriptions: Continued (DME) incontinence pad, liner, disp Pad See Rx Instructions .ROUTE .MEDSUPPLY Qty: 180 RF: 3 (DME) blood-glucose meter [OneTouch UltraMini] Kit See Rx Instructions .ROUTE .MEDSUPPLY Qty: 1 RF: 0 omeprazole 20 mg capsule,delayed release(DR/EC) 20 mg PO QAM Qty: 90 RF: 3 lisinopril 10 mg tablet 10 mg PO QAM Qty: 90 RF: 3 montelukast 10 mg tablet 10 mg PO PM Qty: 90 RF: 3 (DME) blood sugar diagnostic Strip See Rx Instructions .ROUTE .MEDSUPPLY Qty: 100 RF: 5 fluticasone propion-salmeterol 250-50 mcg/dose blister with device 1 inh inhalation BID Qty: 60 RF: 3 famotidine 20 mg tablet 20 mg PO BID Qty: 180 RF: 3 pravastatin 20 mg tablet 20 mg PO HS Qty: 90 RF: 3 albuterol sulfate 90 mcg/actuation HFA aerosol inhaler 2 puff INHALATION QID PRN (Reason: Shortness Of Breath) Qty: 18 RF: 3 (DME) lancets [OneTouch Delica Lancets] 33 gauge misc See Rx Instructions .ROUTE .MEDSUPPLY Qty: 100 RF: 5 loratadine 10 mg tablet 10 mg PO QAM Qty: 90 RF: 3 metformin 500 mg tablet 500 mg PO BID Qty: 180 RF: 3 levothyroxine 50 mcg tablet 175 mcg PO QAM Qty: 135 RF: 1 fluticasone propionate [Allergy Relief (fluticasone)] 50 mcg/actuation sp ray,suspension 1 - 2 spray INTNAS DAILY PRN (Reason: Allergy Symptoms) Qty: 16 RF: 3 aspirin 81 mg tablet,delayed release (DR/EC) 81 mg PO QAM Qty: 90 RF: 3 sildenafil (pulm.hypertension) 20 mg tablet 20 mg PO DAILY PRN (Reason: sexual activity) Qty: 30 RF: 5 finasteride 5 mg tablet 5 mg PO DAILY Qty: 90 RF: 3 lorazepam 1 mg tablet 1 mg PO TID PRN (Reason: Anxiety) RF: 0 divalproex 500 mg tablet,delayed release (DR/EC) See Rx Instructions .ROUTE .COMPLEX RF: 0 ziprasidone HCl 40 mg capsule 40 mg PO BID RF: 0 ziprasidone HCl 80 mg Capsule 80 mg PO BID RF: 0 buspirone 30 mg Tablet 30 mg PO BID RF: 0 perphenazine 8 mg tablet 8 mg PO BID RF: 0 bupropion HCl 150 mg Tablet Sustained-Release 12 Hr 150 mg PO DAILY RF: 0 naproxen 500 mg tablet 500 mg PO BID PRN (Reason: Pain) RF: 0 acetaminophen [Tylenol 8 Hour] 650 mg Tablet Extended Release 650 - 1,300 mg PO DIRECTED PRN (Reason: Pain) RF: 0 Discontinued furosemide 40 mg tablet 40 mg PO QAM Qty: 90 RF: 3 potassium chloride [Klor-Con M20] 20 mEq tablet,ER particles/crystals 20 meq PO BID Qty: 60 RF: 5 No Action polyethylene glycol 3350 17 gram/dose powder 17 g PO BID PRN (Reason: Constipation) Qty: 238 RF: 3 Discharge Orders: Discharge Order (Routine); Ordered 09/20/21 Ordered By: Irina Tirado/Other Patient Handouts: Managing Type 2 Diabetes Admission Data Admit Date/Time: 09/20/21 02:00 Attending Provider: Markie Churchill Admit Provider: Guru Chapin Primary Care Provider: Yohannes Carrillo Other Providers: Markie Churchill Other Interventions: Discharge Summary Assessment (RN) Last Done: 09/20/21 12:53 Supervising Physician Co-Signing Physician Notes Patient seen and examined at bedside. During face to face encounter, obtained phsyical examination and discussed hospital course. I discussed discharge plan with ELVIN Ross and Patient. I reviewed above note and agree with it. SOB appeared to be due to panic attack. Will discharge on above meds. Coding Level of Care Code OBSERV/HOSP SAME DATE LVL 3 Diagnoses Shortness of breath R06.02 Acute hyponatremia E87.1 Leg edema R60.0 Type 2 diabetes mellitus E11.9 Schizophrenia F20.9 Hypothyroidism E03.9 Hyperlipidemia E78.5 Hypertension I10
--- NOTE | 2021-09-20 13:42 | Electrocardiogram Report ---
Test Reason : Blood Pressure : / mmHG Vent. Rate : 086 BPM Atrial Rate : 086 BPM P-R Int : 216 ms QRS Dur : 156 ms QT Int : 396 ms P-R-T Axes : 052 -65 056 degrees QTc Int : 473 ms Sinus rhythm with 1st degree A-V block Right bundle branch block Left anterior fascicular block Bifascicular block Abnormal ECG When compared with ECG of 05-JUN-2020 09:04, No significant change was found Confirmed by Yohannes Buckley ([id number]) on 09/20/2021 1:42:04 PM Referred By: REFERRED SELF Confirmed By:Yohannes Buckley
--- NOTE | 2021-09-20 16:10 | XCELERA ---
[id number]
[2021-09-20] MEDS ORDERED: PRAVASTATIN SOD 20 MG TAB PO SCH (21:00)
[2021-09-20] MEDS ORDERED: MONTELUKAST SODIUM 10 MG TABLET PO SCH (21:00)
--- NOTE | 2021-09-21 00:19 | Billing Data ---
Date of Service September 21, 2021 Coding Level of Care Code 02457 Initial Inpt Care Lvl 3
== END 2021-09-20 14:46 | disposition home or self-care (01) | DRG 880 ==
LOC: ED 22:55 → 3W 09-20 01:57 → INTOOBSV 09-20 02:00 → 3W 09-20 02:26

== ENCOUNTER 2021-11-30 08:03 | Observation (INO) ==
--- NOTE | 2021-10-23 10:29 | PAT Medication Instructions ---
Medication Instructions Date of Service October 23, 2021 Home Medications Medication Instructions Recorded incontinence pad, liner, disp #180 ea 06/11/19 blood-glucose meter (OneTouch #1 ea 07/06/19 UltraMini) omeprazole 20 mg capsule,delayed 20 mg PO QAM #90 cap 10/31/20 release lisinopril 10 mg tablet 10 mg PO QAM #90 tab 11/07/20 montelukast 10 mg tablet 10 mg PO PM #90 tab 01/17/21 blood sugar diagnostic #100 ea 03/27/21 fluticasone 250 mcg-salmeterol 50 1 inh INHALATION BID #60 ea NS 04/03/21 mcg/dose blistr powdr for inhalation famotidine 20 mg tablet 20 mg PO BID #180 tab 05/01/21 pravastatin 20 mg tablet 20 mg PO HS #90 tab 05/10/21 lancets 33 gauge (OneTouch Delica #100 ea 06/29/21 Lancets) loratadine 10 mg tablet 10 mg PO QAM #90 tab 07/21/21 sildenafil (pulm.hypertension) 20 20 mg PO DAILY PRN #30 tab 07/26/21 mg tablet levothyroxine 50 mcg tablet 175 mcg PO QAM #135 tab 08/16/21 fluticasone propionate 50 1 - 2 spray INTNAS DAILY PRN #16 g 08/31/21 mcg/actuation nasal spray,suspension (Allergy Relief (fluticasone)) aspirin 81 mg tablet,delayed 81 mg PO QAM #90 tab 09/13/21 release polyethylene glycol 3350 17 17 g PO BID PRN #238 g 09/22/21 gram/dose oral powder albuterol sulfate 90 mcg/actuation 2 puff INHALATION QID PRN #18 gm 10/04/21 aerosol inhaler buspirone 30 mg tablet 30 mg PO BID ziprasidone HCl 80 mg capsule 80 mg PO BID divalproex 500 mg tablet,delayed release 500 mg PO BID ziprasidone HCl 40 mg capsule 40 mg PO BID perphenazine 8 mg tablet 8 mg PO BID bupropion HCl 150 mg tablet,12 hr sustained-release 150 mg PO QAM omeprazole 20 mg capsule,delayed release 20 mg PO QAM lisinopril 10 mg tablet 10 mg PO QAM montelukast 10 mg tablet 10 mg PO PM fluticasone 250 mcg-salmeterol 50 mcg/dose blistr powdr for inhalation 1 inh INHALATION BID lorazepam 1 mg tablet 1 mg PO TID PRN famotidine 20 mg tablet 20 mg PO BID pravastatin 20 mg tablet 20 mg PO HS loratadine 10 mg tablet 10 mg PO QAM sildenafil (pulm.hypertension) 20 mg tablet 20 mg PO DAILY PRN levothyroxine 50 mcg tablet 175 mcg PO QAM fluticasone propionate 50 mcg/actuation nasal spray,suspension (Allergy Relief (fluticasone)) 1 - 2 spray INTNAS DAILY PRN aspirin 81 mg tablet,delayed release 81 mg PO QAM acetaminophen 650 mg tablet,extended release (Tylenol 8 Hour) 650 - 1,300 mg PO DIRECTED PRN naproxen 500 mg tablet 500 mg PO BID PRN polyethylene glycol 3350 17 gram/dose oral powder 17 g PO BID PRN albuterol sulfate 90 mcg/actuation aerosol inhaler 2 puff INHALATION QID PRN finasteride 5 mg tablet 5 mg PO QAM metformin 500 mg tablet 500 mg PO BID ASK your surgeon for instructions naproxen 500 mg tablet 500 mg PO BID PRN ASK your prescriber and surgeon ziprasidone HCl 80 mg capsule 80 mg PO BID ziprasidone HCl 40 mg capsule 40 mg PO BID perphenazine 8 mg tablet 8 mg PO BID STOP taking 24 hours before surgery sildenafil (pulm.hypertension) 20 mg tablet 20 mg PO DAILY PRN DO NOT take the morning of surgery lisinopril 10 mg tablet 10 mg PO QAM loratadine 10 mg tablet 10 mg PO QAM polyethylene glycol 3350 17 gram/dose oral powder 17 g PO BID PRN metformin 500 mg tablet 500 mg PO BID Take morning of surgery With a small sip of water, OTHERWISE NOTHING TO EAT OR DRINK AFTER MIDNIGHT: buspirone 30 mg tablet 30 mg PO BID divalproex 500 mg tablet,delayed release 500 mg PO BID bupropion HCl 150 mg tablet,12 hr sustained-release 150 mg PO QAM omeprazole 20 mg capsule,delayed release 20 mg PO QAM fluticasone 250 mcg-salmeterol 50 mcg/dose blistr powdr for inhalation 1 inh INHALATION BID lorazepam 1 mg tablet 1 mg PO TID PRN (if needed) famotidine 20 mg tablet 20 mg PO BID levothyroxine 50 mcg tablet 175 mcg PO QAM fluticasone propionate 50 mcg/actuation nasal spray,suspension (Allergy Relief (fluticasone)) 1 - 2 spray INTNAS DAILY PRN (if needed) aspirin 81 mg tablet,delayed release 81 mg PO QAM (unless surgeon directed otherwise) acetaminophen 650 mg tablet,extended release (Tylenol 8 Hour) 650 - 1,300 mg PO DIRECTED PRN (if needed) albuterol sulfate 90 mcg/actuation aerosol inhaler 2 puff INHALATION QID PRN (use if needed; please bring with you to hospital day of surgery if possible) finasteride 5 mg tablet 5 mg PO QAM Take evening before surgery buspirone 30 mg tablet 30 mg PO BID divalproex 500 mg tablet,delayed release 500 mg PO BID montelukast 10 mg tablet 10 mg PO PM fluticasone 250 mcg-salmeterol 50 mcg/dose blistr powdr for inhalation 1 inh INHALATION BID lorazepam 1 mg tablet 1 mg PO TID PRN (if needed) famotidine 20 mg tablet 20 mg PO BID pravastatin 20 mg tablet 20 mg PO HS fluticasone propionate 50 mcg/actuation nasal spray,suspension (Allergy Relief (fluticasone)) 1 - 2 spray INTNAS DAILY PRN (if needed) acetaminophen 650 mg tablet,extended release (Tylenol 8 Hour) 650 - 1,300 mg PO DIRECTED PRN (if needed) polyethylene glycol 3350 17 gram/dose oral powder 17 g PO BID PRN (if needed) albuterol sulfate 90 mcg/actuation aerosol inhaler 2 puff INHALATION QID PRN (if needed) metformin 500 mg tablet 500 mg PO BID Other Notes If you have any questions please call us at [phone] or [phone] or [phone] or [phone]
--- NOTE | 2021-10-25 16:00 | Anesthesiology Consultation ---
Date of Service October 25, 2021 Assessment & Plan (1) Encounter for pre-operative examination: - check BSG am DOS. - COVID screening: Per assessment on 10/25/2021: Travel screen negative, no known COVID-19 positive contacts or current COVID-19 related symptoms in past 2 weeks. Pt vaccinated. Surgeon arranging preop COVID testing, scheduled 11/14/2021. Awaiting results. Chart Review Chart Review: Acceptable Risk for Surgery and Patient seen in Pre Admission Testing Teaching & Discussion Pre-Anesthesia Teaching/Discussion Notes: Instructed NPO after midnight before surgery, except medications with 15 cc of water. Medication instructions provided according to the PAT guidelines. History Surgery Operation Date: 11/16/21 07:00 Proposed Procedures p Right Total Hip Arthroplasty - Lam Dickinson MD Height/Weight Height: 5 ft 11 in Weight: 96.8 kg Allergies Allergy/AdvReac Type Severity Reaction Status Date / Time No Known Allergies Allergy Verified 10/20/21 15:12 Medications Home Medications Medication Instructions Recorded Confirmed Last Taken buspirone 30 mg tablet 30 mg PO BID 01/26/18 10/20/21 09/19/21 ziprasidone HCl 80 mg capsule 80 mg PO BID 01/26/18 10/20/21 09/19/21 divalproex 500 mg tablet,delayed 500 mg PO BID 05/27/19 10/20/21 09/19/21 release ziprasidone HCl 40 mg capsule 40 mg PO BID 05/27/19 10/20/21 09/19/21 incontinence pad, liner, disp #180 ea 06/11/19 10/02/21 Unknown blood-glucose meter (OneTouch #1 ea 07/06/19 10/02/21 Unknown UltraMini) perphenazine 8 mg tablet 8 mg PO BID 06/04/20 10/20/21 09/19/21 bupropion HCl 150 mg tablet,12 hr 150 mg PO QAM 09/13/20 10/20/21 09/19/21 sustained-release omeprazole 20 mg capsule,delayed 20 mg PO QAM #90 cap 10/31/20 10/20/21 09/19/21 release lisinopril 10 mg tablet 10 mg PO QAM #90 tab 11/07/20 10/20/21 09/19/21 montelukast 10 mg tablet 10 mg PO PM #90 tab 01/17/21 10/20/21 09/19/21 blood sugar diagnostic #100 ea 03/27/21 10/02/21 Unknown fluticasone 250 mcg-salmeterol 50 1 inh INHALATION BID #60 ea NS 04/03/21 10/20/21 09/19/21 mcg/dose blistr powdr for inhalation lorazepam 1 mg tablet 1 mg PO TID PRN 04/19/21 10/20/21 Unknown famotidine 20 mg tablet 20 mg PO BID #180 tab 05/01/21 10/20/21 09/19/21 pravastatin 20 mg tablet 20 mg PO HS #90 tab 05/10/21 10/20/21 09/19/21 lancets 33 gauge (OneTouch Delica #100 ea 06/29/21 10/02/21 Unknown Lancets) loratadine 10 mg tablet 10 mg PO QAM #90 tab 07/21/21 10/20/21 09/19/21 sildenafil (pulm.hypertension) 20 20 mg PO DAILY PRN #30 tab 07/26/21 10/20/21 Unknown mg tablet levothyroxine 50 mcg tablet 175 mcg PO QAM #135 tab 08/16/21 10/20/21 09/19/21 fluticasone propionate 50 1 - 2 spray INTNAS DAILY PRN #16 g 08/31/21 10/20/21 Unknown mcg/actuation nasal spray,suspension (Allergy Relief (fluticasone)) aspirin 81 mg tablet,delayed 81 mg PO QAM #90 tab 09/13/21 10/20/21 09/19/21 release acetaminophen 650 mg 650 - 1,300 mg PO DIRECTED PRN 09/19/21 10/20/21 Unknown tablet,extended release (Tylenol 8 Hour) naproxen 500 mg tablet 500 mg PO BID PRN 09/19/21 10/20/21 Unknown polyethylene glycol 3350 17 17 g PO BID PRN #238 g 09/22/21 10/20/21 Unknown gram/dose oral powder albuterol sulfate 90 mcg/actuation 2 puff INHALATION QID PRN #18 gm 10/04/21 10/20/21 Unknown aerosol inhaler finasteride 5 mg tablet 5 mg PO QAM 10/20/21 10/20/21 Unknown metformin 500 mg tablet 500 mg PO BID 10/20/21 10/20/21 Unknown Additional Notes: Pt and accompanying individual were advised that those medications listed under prescriber and surgeon are fine to continue per anesthesia standpoint and that he will need to contact prescriber: if prescriber has no concerns, then medication should be continued. They verbalized understanding no medication adjustments should occur without instruction from prescribing provider. Caregiver confirmed. 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 Exercise / Class Metabolic Activity III < 4 Walking/Shop/Light housework (denies CP or SOB) Past Family History Family History Unknown Hypertension Mother Hypertension Sister Diabetes Denies family history of Ovarian cancer Prostate cancer Myocardial infarction Breast cancer Colorectal cancer Past Surgical History Surgical History (Updated 10/25/21 @ 15:55 by Genoveva Zabala PA-C) History of colonoscopy History of esophagogastroduodenoscopy (EGD) History of tonsillectomy History of total knee replacement BILAT. Left 08/28/17: SAB at L4-L5 + PNB. [place] teeth extracted 2 Past Anesthesia History No Hx of Anesthesia Complications and No Family Hx of Anesthesia Complications History of PONV No Hx of PONV and No Hx of Motion Sickness Social History Smoking Status: Never smoker Do You Dip or Chew Tobacco: No Hx Alcohol Use: No Hx Substance Use: No substance use type: does not use Review of Systems Patient denies chest pain, shortness of breath, dyspnea on exertion, fever, chills, cough, wheezing, or palpitations. Physical Exam Vital Signs Vitals BP 121/82 P 90 TEMP 98.2 SP02 95% on RA RESP 17 Physical Full cervical extension range of motion without pain TMD 3.5 finger breaths Mallampati Score 1 Dentition: intact, several missing teeth, caps and crowns throughout; denies chipped or loose teeth, implants or bridges Lungs: normal respiratory effort. Clear throughout to auscultation, no adventitious breath sounds Cardiac: regular rate and rhythm, no murmurs noted Carotid arteries: negative bruit bilat Lab Results Anesthesia Preop Results Results Anesthesia Widget: WBC 7.07 K/uL (4.8-10.8) 10/25/21 Hgb 15.8 g/dL (14.0-18.0) 10/25/21 Hct 47.5 % (42-52) 10/25/21 Plt 229 K/uL (130-400) 10/25/21 Na 135 mmol/L (136-145) L 10/25/21 K 4.7 mmol/L (3.5-5.1) 10/25/21 Cl 102 mmol/L (98-107) 10/25/21 CO2 26 mmol/L (21-32) 10/25/21 BUN 15 mg/dl (6-23) 10/25/21 Creat 1.28 mg/dl (0.6-1.4) 10/25/21 Glucose Level 81 mg/dl (70-99(Fasting)) 10/25/21 POC Glucose 99 mg/dl (70-99) 09/20/21 PT 10.6 Seconds (9.0-12.0) 10/25/21 PTT 27.4 Seconds (21.0-31.0) 10/25/21 INR 1.0 (0.9-1.1) 10/25/21 TSH 0.942 uIu/ml (0.300-4.500) 09/20/21 HA1c 5.7 % (4.5-5.6) H 10/25/21 Urine Color Yellow 10/25/21 Urine Appearance Clear (Clear) 10/25/21 Urine pH 7.5 (4.5-7.5) 10/25/21 Urine Specific [place] 1.019 (1.000-1.030) 10/25/21 Urine Protein Negative (Negative) 10/25/21 Urine Glucose (UA) Negative (Negative) 10/25/21 Urine Ketones Trace (Negative) H 10/25/21 Urine Blood Negative (Negative) 10/25/21 Urine Nitrite Negative (Negative) 10/25/21 Urine Bilirubin Negative (Negative) 10/25/21 Urine Urobilinogen Negative (Negative) 10/25/21 Urine Leukocyte Esterase Negative (Negative) 10/25/21 COVID-19 PCR NEGATIVE (Negative) 09/19/21 Blood Type O Positive 10/25/21 Antibody Screen NEGATIVE 10/25/21 Testing Electrocardiogram Date: 09/19/21 Sinus rhythm with 1st degree AV block, rate 86 bpm RBBB Left anterior fascicular block bifascicular block No significant change found from 06/05/20 Chest X-Ray Date: 09/19/21 *1 view* Lung volumes are normal. Lungs are clear. There is no pneumothorax or pleural effusion. Cardiac size is normal. Tortuosity of the descending thoracic aorta is unchanged. There is no evidence for pulmonary edema. IMPRESSION: No acute cardiopulmonary findings. Echocardiogram Date: 09/20/21 EF 55-60% Moderate cLVH No regional LV wall motion abnormalities No significant valvular pathology
--- NOTE | 2021-11-29 16:15 | History & Physical Report ---
Date of Service November 29, 2021 Assessment & Plan (1) Osteoarthritis of right hip: Plan: PRE-OP Diagnosis: Right hip osteoarthritis Planned Procedure: Right total hip arthroplasty Plan: Patient is scheduled to undergo this procedure at the [facility] with a 23-hour observation admission with Dr. Dickinson on November. Risks and complications of the procedure such as: Infection, bleeding, pain, scarring, nerve blood vessel damage, weakness, wound problems, stiffness, incomplete relief of symptoms, hardware failure, hardware loosening, wear, fracture, tendon or ligament injury, dislocation, leg length inequality, blood clots, Embolism, heart attack, stroke and were explained to the patient at her visit today. Informed consent to perform the procedure was obtained. Patient also understands risks of proceeding with surgical intervention during the COVID- pandemic. Currently he is asymptomatic and understands that he will need to be tested prior to surgery. Patient has already met with anesthesia and while there will obtain a CBC with differential, complete metabolic panel, PT/INR, blood type and screen, urinalysis, urine culture and sensitivity, EKG, hemoglobin A1c and a nasal culture for MRSA which are all up-to-date. We have obtained preoperative medical clearance from the patient's primary care provider as well as the psychiatrist. Patient states that he plans on doing in-home physical therapy for the first 1 to 2 weeks postoperatively with [facility]. Patient states that he will most likely elect to do outpatient physical therapy at his home if possible. Patient will need a walker, raised toilet seat, shower chair and a hip kit. During today's visit we reviewed the total hip packet as well as precautions. We discussed discharge planning from the hospital. I provided paperwork to obtain a handicap placard for their vehicle. We discussed lectures offered by [facility] in regards to joint replacement surgery via Zoom. I advised the patient that upon discharge from hospital we will prescribe a narcotic pain medication and anti-inflammatory. Patient will also be on an 81 mg aspirin twice daily for blood clot prevention. Patient will be scheduled for 2-week postoperative follow-up visit with myself on December 15 at 1:30 PM. At that visit we will Provide the patient with an order for outpatient physical therapy and rehab protocol. Patient verbalizes understanding of all information provided during today's visit. He thanks for the care that he received. If he has questions or concerns that should arise prior to he surgery, he will contact clinic. This chart was completed utilizing [employer] voice recognition software. Grammatical errors, random word insertions, pronoun errors, and in complete sentences are an occasional consequence of the system. Any questions or concerns about the content, text, or information contained within the body of this dictation should be addressed directly to the physician for clarification. History of Present Illness Chief Complaint: Chief Complaint: Right hip pain Primary Care Provider: Yohannes Carrillo MD History of Present Illness (including history relevant to procedure): This 61-year-old male presents to clinic today for his preoperative history and physical. Patient states that he is now having a lot of difficulties with his activities of daily living, for example, getting in and out of his bed. He has difficulty picking up his leg to step into the shower. He uses a walker when he is outside of his house. He reports that his diabetes is under good control. Patient localizes most of his pain to the posterior lateral aspect of his hip. He has failed conservative treatment with physical therapy, rest, ice, nonsteroidal agents as well as ultrasound-guided corticosteroid injections. He is ready to proceed with surgical intervention. Review Of Systems: A 12 point review of systems is performed and is unremarkable except for those things stated in the HPI and past medical history. Past Medical History: Problems: Osteoarthritis of right hip OA (osteoarthritis) of hip Lumbar facet arthropathy Lumbar radicular syndrome Spondylolisthesis, lumbar region S/P total knee replacement S/P orthopedic surgery, follow-up exam Preop examination Peripheral edema Lymphedema of leg Lymphedema Popliteal cyst Pain LBP [Low back pain] Hyperlipidemia GERD DEPRESSION Polydipsia Blood in Stool Chronic kidney disease, unspecified Hyperlipidemia Hypothyroidism ASTHMA Eczema ANXIETY BIPOLAR DISORDER EDEMA HYPERTENSION Sleep apnea Low back pain Constipation, chronic Family history of skin cancer Back pain Basal cell cancer MR (mitral regurgitation) Mild tricuspid regurgitation Knee Diabetes mellitus without mention of complication, type II or unspecified type, not stated as uncontrolled Procedure History Procedure Procedure Date Comments left ACL reconstruction Tonsillectomy Knee - X2 Total knee replacement 08/27/2017 - left Colonoscopy 08/01/2015 - iverticulosis in the sigmoid colon. No specimens collected. Repeat in 5 years for surveillance. Shave biopsy and cauterization of skin 06/01/2014 Shave biopsy and cauterization of skin 01/30/2013 colonoscopy 05/05/2012 Allergies and Sensitivities: NKA Social history: Completely unremarkable Family history: Noncontributory Current Home Meds: (Last Updated 11/28 14:14) FLUoxetine (FLUoxetine 20 mg oral capsule) 60 mg PO Daily albuterol (Ventolin HFA 90 mcg/inh inhalation aerosol) 2 puff inhaled qid PRN: as needed for wheezing amoxicillin (amoxicillin 500 mg oral capsule) 2,000 mg PO As indicated one hour before dental and other procedures as directed amoxicillin (amoxicillin 500 mg oral capsule) 2,000 mg PO As indicated one hour before dental and other procedures as directed aspirin (aspirin 81 mg oral enteric coated tablet) TAKE 1 TABLET EVERY DAY buPROPion (Wellbutrin 100 mg oral tablet) PO Daily 1 1/2 tab daily budesonide-formoterol (Symbicort 160 mcg-4.5 mcg/inh inhalation aerosol) 2 puff inhaled bid busPIRone (busPIRone 30 mg oral tablet) 30 mg PO bid clonazePAM (Klonopin) 1 mg PO tid PRN: Anxiety as needed diabetic supplies (Contour Glucose Meter) Test Daily, DX 250.0 diabetic supplies (Contour Test Strips 100 ct) test daily, DX 250 diabetic supplies (Microlet Lancets 100 ct) test dailyDX 250 diabetic supplies (Accu-Chek Charleen Glucose Monitor) dx. 250.00 diabetic supplies (Accu-Chek CHARLEEN Test Strips) dx. 250.00 patient tests 2-3 times daily diabetic supplies (Accu-Chek FastClix Lancets) dx. 250.00patient tests 2-3 times daily diabetic supplies (Ascensia Contour Test Strips) Check BS daily and pen Tavares Contour Blood Glucose Test Strips - F Maximino 05/21 14:06 diphenhydrAMINE 25 mg PO every 6 hours as needed divalproex sodium (Depakote ER) 2000mg in the afternoon and 1500h.s. docusate-senna (Senna Plus 50 mg-8.6 mg oral tablet) 1-2 tabs daily furosemide (furosemide 20 mg oral tablet) TAKE 1 TABLET EVERY DAY levothyroxine (levothyroxine 175 mcg (0.175 mg) oral tablet) TAKE 1 TABLET EVERY DAY lisinopril (lisinopril 10 mg oral tablet) TAKE 1 TABLET BY MOUTH EVERY DAY magnesium oxide (Mag-Ox 400 oral tablet) 400 mg PO Daily metFORMIN (metFORMIN 500 mg oral tablet) 500 mg PO bid montelukast (Singulair 10 mg oral tablet) TAKE 1 TABLET IN THE EVENING naproxen (naproxen 500 mg oral tablet) TAKE 1 TABLET BY MOUTH TWICE A DAY NEEDED FOR ARTHRITIS, TAKE WITH FOOD omeprazole (omeprazole 20 mg oral delayed release capsule) TAKE 1 CAPSULE BY MOUTH EVERY DAY perphenazine (perphenazine 8 mg oral tablet) Responsible Provider: NELLY WRIGHTerland 07/27 13:16 polyethylene glycol 3350 (MiraLax) 17 g PO Daily potassium chloride (Klor-Con M20 oral tablet, extended release) TAKE 1 TABLET BY MOUTH EVERY DAY pravastatin (Pravachol 20 mg oral tablet) 20 mg PO Daily ranitidine (ranitidine 150 mg oral capsule) TAKE 1 CAPSULE TWICE DAILY traMADol (traMADol 50 mg oral tablet) 50 mg PO q4h PRN: as needed for pain not to exceed 400 mg/day ziprasidone (Geodon 80 mg oral capsule) 80 mg PO bid Allergies Allergy/AdvReac Type Severity Reaction Status Date / Time No Known Allergies Allergy Verified 10/26/21 11:29 Home Medications Medication Instructions Recorded Confirmed Type buspirone 30 mg tablet 30 mg PO BID 01/26/18 10/26/21 History ziprasidone HCl 80 mg capsule 80 mg PO BID 01/26/18 10/26/21 History divalproex 500 mg tablet,delayed 500 mg PO BID 05/27/19 10/26/21 History release ziprasidone HCl 40 mg capsule 40 mg PO BID 05/27/19 10/26/21 History incontinence pad, liner, disp #180 ea 06/11/19 10/26/21 Rx blood-glucose meter (OneTouch #1 ea 07/06/19 10/26/21 Rx UltraMini) perphenazine 8 mg tablet 8 mg PO BID 06/04/20 10/26/21 History bupropion HCl 150 mg tablet,12 hr 150 mg PO QAM 09/13/20 10/26/21 History sustained-release omeprazole 20 mg capsule,delayed 20 mg PO QAM #90 caps 10/31/20 10/26/21 Rx release lisinopril 10 mg tablet 10 mg PO QAM #90 tabs 11/07/20 10/26/21 Rx montelukast 10 mg tablet 10 mg PO PM #90 tabs 01/17/21 10/26/21 Rx fluticasone 250 mcg-salmeterol 50 1 inh inhalation BID #60 ea 04/03/21 10/26/21 Rx mcg/dose blistr powdr for inhalation lorazepam 1 mg tablet 1 mg PO TID PRN Anxiety 04/19/21 10/26/21 History famotidine 20 mg tablet 20 mg PO BID #180 tabs 05/01/21 10/26/21 Rx pravastatin 20 mg tablet 20 mg PO HS #90 tabs 05/10/21 10/26/21 Rx lancets 33 gauge (OneTouch Delica #100 ea 06/29/21 10/26/21 Rx Lancets) loratadine 10 mg tablet 10 mg PO QAM #90 tabs 07/21/21 10/26/21 Rx sildenafil (pulm.hypertension) 20 20 mg PO DAILY PRN sexual activity 07/26/21 10/26/21 Rx mg tablet #30 tabs fluticasone propionate 50 1 - 2 spray intranasal DAILY PRN 08/31/21 10/26/21 Rx mcg/actuation nasal Allergy Symptoms #16 grams spray,suspension (Allergy Relief (fluticasone)) aspirin 81 mg tablet,delayed 81 mg PO QAM #90 tabs 09/13/21 10/26/21 Rx release acetaminophen 650 mg 650 - 1,300 mg PO DIRECTED PRN 09/19/21 10/26/21 History tablet,extended release (Tylenol 8 Pain Hour) naproxen 500 mg tablet 500 mg PO BID PRN Pain 09/19/21 10/26/21 History albuterol sulfate 90 mcg/actuation 2 puff inhalation QID PRN 10/04/21 10/26/21 Rx aerosol inhaler Shortness Of Breath #18 grams finasteride 5 mg tablet 5 mg PO QAM 10/20/21 10/26/21 History metformin 500 mg tablet 500 mg PO BID 10/20/21 10/26/21 History levothyroxine 50 mcg tablet 175 mcg PO QAM #135 tabs 10/31/21 Rx amoxicillin 500 mg-potassium 1 tab PO BID #14 tabs 11/09/21 Rx clavulanate 125 mg tablet (Augmentin) blood sugar diagnostic #100 ea 11/13/21 Rx polyethylene glycol 3350 17 17 g PO BID PRN Constipation #238 11/27/21 Rx gram/dose oral powder grams Past Med/Surg History Medical History Acute asthma exacerbation Acute hyponatremia Asthma PRN Use inhalers Bipolar 1 disorder STABLE PER PATIENT BPH (benign prostatic hyperplasia) CKD (chronic kidney disease) Stage 2 Community acquired pneumonia Diabetes mellitus, type 2 NIDDM LOW (dyspnea on exertion) Facial basal cell cancer REMOVED GERD (gastroesophageal reflux disease) Hearing deficit History of blood transfusion after left TKA Hyperlipidemia Hypertension Hypothyroidism (05/20/12) Leg edema 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 Left 08/28/17: SAB at L4-L5 + PNB. 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 Beliefs That Will Affect Care: None marital status: Single Current Living Situation: Alone current occupational status: unemployed How many Children do You have: 0 Feels Safe at Home: No Is there a partner from a previous relationship who is making you feel unsafe now?: No Seatbelt Use: always Assistive Devices: None Review of Systems All systems reviewed & are unremarkable except as noted in HPI & below Physical Exam Physical Exam: Physical Exam: (relevant to the procedure, including heart and lung evaluation) General: Alert and oriented x3 with proper grooming and hygiene Eyes: Pupils are equal react to light with accommodation. Extraocular lids are intact Throat: Deferred due to COVID-19 precautions Cardiac: Regular rate and rhythm no murmurs or gallops appreciated Lungs: Clear to auscultation throughout with no wheezing, rales or rhonchi Abdomen: Obese, nondistended, nontender with NABS Extremities: Right hip; flexion is limited to 95 degrees, internal rotation to 5 degrees and external rotation to 45 degrees. Patient has tenderness to palpation over the posterior lateral aspect of the hip. He is able to perform an active straight leg raise test without pain. Stinchfield test is negative. Logroll test negative. Patient does walk with the aid of a walker with a slight antalgic gait. Otherwise he is neurovascular intact in the right lower extremity. Neuro: Cranial nerves II through XII are intact no motor or sensory deficit Skin: Normal in appearance no open skin areas or discharge Results & Data ([facility]) Diagnostic Findings Studies (relevant to the procedure): X-rays done include standing AP pelvis, false profile view, and cross-table lateral view of the right hip. These are compared with his prior films. There has been interval superior and anterosuperior joint space loss. Increased subchondral sclerosis is noted. Marginal osteophytes are noted as well.
[~2021-11-30 08:03] MED LIST changes: +ACETAMINOPHEN 500 MG TAB PO SCH; -BENZ-88 PO; +BUPIVACAINE 0.5 % 5 MG/1 ML PF 10ML VIAL ONE; -BUSP30TA2 OG; -CLON1TAB10 PO; -CLR10 PO; -DPKSR/500 PO; -DPKSR500 PO; -ENOX30IN4 SQ; -FERR1TAB13 PO; -FURO40TA3 PO; +GABAPENTIN 600 MG DOSE PO SCH; -GDN/80 PO; -LEVO175T3 PO; -LISI-461 PO; +LR 15ML/HR IV SCH; +LR 60ML/HR IV SCH; -METF-383 PO; -MONT1TAB3 PO; -POLY335019 PO; -POTA-639 PO; -PRAV20TA2 PO; -PRLSR20 PO; -RANI150T85 PO; +ROPIVACAINE 0.5% HCL/PF 150 MG, BUPIVACAINE 0.75% MPF 20 ML, EPINEPHrine 0.15 MG, Ketor... INFIL SCH; -SENN1TAB65 PO; -SYMIN INH; -TRAM-10 PO; +TRANEXAMIC ACID 1,000 MG **IV Intra-op IV SCH; +TRANEXAMIC ACID 1,000 MG **IV Pre-op IV SCH; -VNTHFA/IN INH; -WLLSR150 PO; -[UNRECOGNIZED DRUG - CODE] PO
[2021-11-30] MEDS ORDERED: PHENYLEPHRINE 100MCG/ML 5ML SYR IV PRN (08:50)
[2021-11-30] MEDS ORDERED: MEPERIDINE HCL 25 MG/ML CARP/VIAL IV PRN (08:50)
[2021-11-30] MEDS ORDERED: ONDANSETRON INJ 2 MG/ML 2 ML VIAL IV PRN ×2 (08:50→12:21)
[2021-11-30] MEDS ORDERED: LABETALOL HCL IV 5 MG/ML 20ML IV PRN (08:50)
[2021-11-30] MEDS ORDERED: ePHEDrine sulfate 50 MG/ML AMP IV PRN (08:50)
[2021-11-30] MEDS ORDERED: fentaNYL citrate 100 MCG/2 ML VIAL IV PRN (08:50)
[2021-11-30] MEDS ORDERED: HYDROmorphone INJ 1 MG/ML SYRINGE IV PRN (08:50)
[2021-11-30] MEDS ORDERED: ATROPINE SULFATE 0.1 MG/ML 10ML SYR IV PRN (08:50)
[2021-11-30] MEDS ORDERED: MIDAZOLAM HCL 1 MG/ML 2ML VIAL ONE (09:20)
[2021-11-30] MEDS ORDERED: fentaNYL citrate 100 MCG/2 ML VIAL ONE (09:20)
[2021-11-30] MEDS ORDERED: PROPOFOL IV EMULSION 10 MG/ML 20 ML VIAL IV ONE (09:21)
[2021-11-30] MEDS ORDERED: LIDOCAINE 2% MPF LOCAL 5 ML VIAL INFIL ONE (09:21)
--- NOTE | 2021-11-30 10:08 | History & Physical Bridge Note ---
Date of Service November 30, 2021 History & Physical Bridge Note I have examined the patient, reviewed the History & Physical and in the interval since the performance of the History & Physical I have noted the following changes of clinical significance: no changes noted
[2021-11-30] MEDS ORDERED: ORTHO JOINT ANESTHETIC ONE (10:20)
[2021-11-30] MEDS: ceFAZolin 2000MG 2,000 MG/15 ML SYR IV SCH ×3 (10:38→19:41)
[2021-11-30] MEDS ORDERED: ceFAZolin 2000MG 2,000 MG/15 ML SYR IV ONE (11:21)
[2021-11-30] MEDS ORDERED: ePHEDrine sulfate 50 MG/ML AMP ONE (11:42)
--- NOTE | 2021-11-30 12:11 | Operative Report ---
Post Operative Report Pre & Post Diagnosis Operation Date: 11/30/21 10:35 Pre-Op Diagnosis: Unilateral Primary Osteoarthritis, Right Hip Post-Op Diagnosis: Unilateral Primary Osteoarthritis, Right Hip I identified the patient and participated in the time-out.: Yes Procedure Operation Date: 11/30/21 10:35 Actual Procedures p Right Total Hip Arthroplasty(Right) 22 modifier should be added due to the increased risk of complications related to the patient's history of lower extremity lymphedema, diabetes, obesity, and psychiatric disease including schizophrenia and bipolar disorder.- Lam Dickinson MD Surgeon Lam Dickinson MD Linux Server Administrator CHRISS Jimenez PA-C. No resident or fellow was available to assist. Estimated Blood Loss 200 Findings Consistent with Post-Op Diagnosis Specimens Right femoral head Anesthesia Type Spinal MAC Complications none Disposition Disposition: Recovery Room Indications 61-year-old male, with right hip osteoarthritis refractory to conservative management. X-rays demonstrate [id number] disease. He has medical history significant for schizophrenia, bipolar disorder, diabetes, and lymphedema in the lower extremities. All of these increases risk for complication after surgery. I reviewed the risks of surgery in detail. Alternatives and expected outcomes after surgery were discussed. Patient elected to proceed with surgery. All questions were answered. Informed consent was signed. Description of Procedure Patient was identified in the preoperative holding area and the surgical site, right hip, was marked. A spinal anesthetic was placed, then the patient was brought back to the main operating room, placed in the operating table and moved into the lateral decubitus position. Axillary roll was placed. All bony prominences were padded. Perioperative antibiotics and tranexamic acid 1 gram IV were administered. Operative extremity was prepped and draped in the normal sterile fashion. Prior to incision a multidisciplinary timeout was called. All in the room were in agreement. We began by making an incision for a posterior approach to the hip. We dissected down through subcutaneous tissues to the level of the fascia. The fascia was incised in line with the incision. Charnley bow was placed. The trochanteric bursa was excised. The piriformis and short external rotators were dissected off the posterior aspect of the hip. A box cut was made in the capsule. The femoral head was dislocated. The femoral neck cut was made at our preoperative template. The acetabulum was then exposed. The labrum was sharply excised. Contents of the cotyloid fossa were removed with electrocautery. We then began reaming at a size 8 mm less than our preoperative template. We reamed up by [address] the way up to a size 56 mm cup. This gave us good bleeding cancellus bone circumferentially. The acetabulum was then irrigated out and dried. The real [place] Gription cup was then impacted down into position with 45 degrees of lateral opening and 25 degrees of anteversion. A single cancellous bone screw was placed up into the ilium. Excellent fixation was obtained. A trial liner for a 36 mm femoral head was then placed. Next we turned our attention to the femur. The lateral neck was removed with a box osteotome. Intramedullary guide was used followed by the lateralizing reamer. We then reamed up to a size 5 Burton stem. We then broached all the way up to a size 4. We began trialing with a high offset neck and a +5 head. Hip was reduced. Leg lengths were symmetric. The hip was stable in extension and external rotation, and stable in the sleeper position. At 90 degrees of hip flexion the hip could be internally rotated 65 degrees before levering out of the cup. I was very happy with the stability exam. Therefore the hip was dislocated and the femoral trial was removed. The acetabulum was re-exposed, and the trial liner was removed. An Altrx polyethylene liner for a 36 mm f emoral head was then impacted into the shell. The locking mechanism was checked to ensure that it had engaged which it had. The femur was re-exposed. The femoral canal was irrigated and dried. The real size 4 high offset Burton femoral stem was opened up. This was impacted down into position. It sat at the same level as the femoral trial. Therefore the 36 mm ceramic femoral head with a +5 mm offset was opened up and gently impacted down onto the trunnion. The hip was atraumatically reduced. Another 1 gram of IV tranexamic acid was started prior to closure. The wound was irrigated out with sterile Betadine solution. The periarticular injection cocktail was then placed. The short external rotators, piriformis, and posterior capsule were repaired through drill holes in the greater trochanter using #2 Vicryl. The fascia was run with a looped #1 PDS. The subcutaneous layer was closed with #1 PDS. The dermal layer was closed with 2-0 Vicryl. Wesley line was used for the skin followed by a Silverlon dressing. A compressive dressing was then placed. The patient was then rolled supine. Leg lengths were rechecked and were symmetric. An abduction pillow was placed. Sedation was lifted and the patient was transferred to recovery room in stable condition. Summary of implants: Depuy [place] Gription Acetabular Shell Sector Cup, 56 mm outer diameter [place] Cancellous bone screw, 6.5 x 40 mm [place] Altrx Polyethylene Acetabular Liner, Neutral, with a 36 mm inner diameter DePuy Burton Femoral stem with [place]oat, 12/14 taper, size 4 high offset 36 mm ceramic femoral head with +5 offset Postoperative course: Patient will be admitted to the hospital from the recovery room. Patient will be weightbearing as tolerated with posterior hip precautions. Aspirin for DVT prophylaxis I attest to the content of the Intraoperative Record and any orders documented therein. Any exceptions are noted below.
[2021-11-30] MEDS ORDERED: bisacodyL 10 MG SUPP PR PRN (12:21)
[2021-11-30] MEDS ORDERED: diphenhydrAMINE 50 MG/ML VIAL IV PRN (12:21)
[2021-11-30] MEDS ORDERED: MAGNESIUM HYDROXIDE SUSP 30 ML UDC PO PRN (12:21)
[2021-11-30] MEDS ORDERED: NALOXONE HCL 0.4 MG/1 ML VIAL/CARP IV PRN (12:21)
[2021-11-30] MEDS ORDERED: ALUMINUM/MAGNESIUM SUSP 30 ML UDC PO PRN (12:21)
[2021-11-30] MEDS ORDERED: oxyCODONE HCL IR 5 MG TAB (IMMEDIATE RELEASE) PO PRN (12:21)
[2021-11-30] MEDS ORDERED: TAMSULOSIN HCL 0.4 MG CAP PO PRN (12:21)
[2021-11-30] MEDS ORDERED: METOCLOPRAMIDE HCL INJ 5 MG/ML 2 ML VIAL IV PRN (12:21)
--- NOTE | 2021-11-30 12:21 | Operative Report ---
Post Operative Report Pre & Post Diagnosis Operation Date: 11/30/21 10:35 Pre-Op Diagnosis: Unilateral Primary Osteoarthritis, Right Hip Post-Op Diagnosis: Unilateral Primary Osteoarthritis, Right Hip I identified the patient and participated in the time-out.: Yes Procedure Operation Date: 11/30/21 10:35 Actual Procedures p Right Total Hip Arthroplasty(Right) - Lam Dickinson MD Surgeon Lam Dickinson MD Electrical Troubleshooter CHRISS Jimenez PA-C. No resident or fellow was available to assist. Estimated Blood Loss 200 Findings Consistent with Post-Op Diagnosis Specimens femoral head Description of Procedure I was present during the entire procedure assisting with positioning, prepping, draping, wound retraction, wound closure and dressing application. No fellow present. Please see Dr. Dickinson procedure note for specifics of the case. I attest to the content of the Intraoperative Record and any orders documented therein. Any exceptions are noted below.
[2021-11-30] MEDS ORDERED: FLUTICASONE PROPIONATE NA SPR 16 GM BTL PRN (12:25)
[2021-11-30] MEDS ORDERED: POLYETHYLENE (MIRALAX) 17 GM PACK PO PRN (12:25)
[2021-11-30] MEDS ORDERED: SILDENAFIL CITRATE 20 MG TABLET PO PRN (12:25)
[2021-11-30] MEDS ORDERED: LORazepam 1 MG TAB PO PRN (12:25)
[2021-11-30] MEDS ORDERED: ALBUTEROL HFA 8 GM INHALER INH PRN (12:25)
--- NOTE | 2021-11-30 12:51 | XRay Report ---
XR pelvis 1-2V routine HISTORY: 61 years-old Male Post Surgical right hip total joint arthroplasty COMPARISON: Pelvis radiograph 10/25/2021 TECHNIQUE: AP view of the pelvis FINDINGS: Moderate left hip osteoarthritis. Satisfactory alignment of the right hip total joint arthroplasty. E xpected postoperative soft tissue swelling with deep tissue air. Lucencies of the greater trochanter may be projectional or represent acute nondisplaced fracture. No unexpected opaque foreign bodies. IMPRESSION: Satisfactory alignment of the right hip total joint arthroplasty. ACT 112: Negative or not required by law. The above report was generated using voice recognition software. It may contain grammatical, syntax o r spelling errors. Electronically signed by: Jose Erwin M.D. 11/30/2021 12:49 PM
--- NOTE | 2021-11-30 13:06 | Anesthesiology Progress Note ---
Date of Service November 30, 2021 Anesthesia Post Procedure Vital Signs Vital Signs: Temp Pulse Pulse Resp BP BP Pulse Ox 11/30/21 12:55 62 18 123/91 95 11/30/21 12:35 64 17 118/75 96 11/30/21 12:45 64 19 114/80 95 11/30/21 12:25 67 14 112/76 95 11/30/21 12:17 36.1 C L 68 16 124/76 100 11/30/21 08:57 36.7 C 76 20 121/86 94 O2 Del Method O2 Flow Rate 11/30/21 12:55 Room Air 11/30/21 12:35 Room Air 11/30/21 12:45 Room Air 11/30/21 12:25 Room Air 11/30/21 12:17 Oxymask 4 11/30/21 08:57 Room Air Transfer of Care Handoff Completed per policy Notes Mental Status: alert / awake / arousable Patient Amnestic to Procedure: Yes Nausea / Vomiting: adequately controlled Pain: adequately controlled Airway Patency, RR, SpO2: stable & adequate BP & HR: stable & adequate Hydration State: stable & adequate Neuraxial Anesthesia: was administered and sensory block is resolving Anesthetic Complications: no major complications apparent and Pt Satisfied with anesthetic care Notes: The patient was given a can of [employer] in PACU for BSG in the 60s. Repeat BSG was 78. The patient feels well.
[2021-11-30] MEDS: SODIUM CHLORIDE 0.9% 1000ML 1,000 ML IV SCH ×2 (14:49→21:30)
--- NOTE | 2021-11-30 14:52 | Hospitalist Consultation ---
Date of Consultation November 30, 2021 Assessment & Plan (1) Osteoarthritis of right hip: - s/p R KADY with Dr. Dickinson. - IVF/abx/pain/activity per primary team. - Rescue Narcan ordered prn. - ASA 81 mg BID for VTE ppx per primary team. - BMP and CBC in AM. * Hgb from September: 15.8 * Baseline Cr: 1.0 - 1.10, GFR ~60 (2) Type 2 diabetes mellitus: - Hold metformin for this evening, will order SSI with Accu-Cheks ACHS. - Likely okay to restart metformin tomorrow on discharge if renal function at baseline on BMP. -Patient specifically requesting a more liberal/regular diet instead of diabetic, which I think is appropriate. Diabetes seems to be well controlled, sugars here < 100, last A1c 5.7% (3) Hyperlipidemia: - Continue pravastatin 20 mg at night. (4) Hypothyroidism: - Continue levothyroxine 175 mcg daily. (5) Hypertension: - Takes lisinopril 10 mg daily for BP. Would hold this medication until POD #2 given use of spinal anesthesia for KADY, however may resume on POD#1 pending renal function at baseline, if patient is moderately or severely hypertensive tomorrow. (6) GERD (gastroesophageal reflux disease): - Continue Pepcid and PPI, will switch omeprazole to Protonix per hospital formulary. - Cautious use of Toradol for pain. (7) Venous insufficiency (chronic) (peripheral): - Chronic, unchanged. Likely combination of venous insufficiency and side effects of some of psychiatric medications, specifically ziprasidone. - Continue to monitor. No acute needs currently. - Elevate legs, HERNAN hose and SCDs. (8) Asthma: - Currently without difficulty breathing, SPO2 >95% on RA. - Continue Advair twice daily and albuterol inhaler as needed. (9) Bipolar 1 disorder: - He is currently stable on current medication regimen. No recent or active visual/auditory/tactile hallucinations, no current or history of seizure-like activity. Reports his last hospitalization for mental health was in 2007. - Continue home medications: Depakote, ziprasidone, perphenazine, bupropion, buspirone, lorazepam as needed. - Depakote level with AM labs. (10) Schizoaffective disorder: - Management as above. Plan - Admitted to [facility] per primary team. - ASA 81 mg twice daily for VTE PPx per primary team. - Full code. Supervising Physician Co-Signing Physician Notes Patient seen and examined, chart reviewed, case discussed with Carmen Dee and I agree with the assessment and plan as above except as otherwise noted Lam is a 61-year-old male with a past medical history of BPH with LUTS, chronic peripheral venous insufficiency, type 2 diabetes mellitus, schizophrenia, hyperlipidemia, hypertension, hypothyroidism, GERD, CKD, bipolar 1, and asthma who presented for right total hip arthroplasty 2/2 OA and who we have been consulted for medical management postop. He is seen at bedside and reports he feels very well, and is hopeful to go home tomorrow. Denies pain and has no acute complaints. At rest his breathing is unlabored and lungs are clear, heart rate is regular. Sits sitting up in bed with head laterally flexed to the right, but straightens easily with otherwise improved range of motion on attention. Agree with assessment/plan above Schizophrenia with bipolar 1 on ziprasidone, perphenazine, buspirone, divalproex, bupropion. Stable on admission, no active psychosis. Depakote level pending, recommend continuing all medications at this time. EKG 08/2021 with QT 396/QTc 473. Echo at that time with normal EF and systolic function, no wall motion abnormalities Hypertension: Hold SAMANTA until postop day 1/2, then resume if kidney function remains at baseline Asthma: No acute exacerbation, continue inhalers as noted Hypothyroidism: Continue Synthroid Hyperlipidemia: Continue statin DM: Convert home metformin to SSI, last A1c well controlled at 5.7%, daily BMP GERD: Continue PPI and Pepcid CKD with DM: BMP daily, preop GFR approximately 60-70. Creatinine 1.11.28 in September. Trend daily, renally dose as needed if creatinine clearance falls below 60. Venous insufficiency: Elevate legs 3 times daily, no acute intervention at this time. History of Present Illness Reason for Consultation: post-op medication management Requesting Physician: Lam Dickinson MD Attending Physician: Lam Dickinson MD History of Present Illness Lam Wong is a 61-year-old male with past medical history significant for DM2, hypertension, hypothyroidism, hyperlipidemia, asthma, BPH, venous insufficiency, and schizoaffective disorder who was admitted today for elective right KADY with Dr. Dickinson due to end-stage osteoarthritis and failing conservative management. Hospitalist group was consulted for post-operative medication management. Today, he is POD#0 and feels well. Denies fever/chills, chest pain, palpitations, shortness of breath, cough, abdominal pain, nausea, vomiting. He has regained sensation in his right leg, is without pain, numbness, or tingling. He is hungry and requesting his dinner. Allergies Allergy/AdvReac Type Severity Reaction Status Date / Time No Known Allergies Allergy Verified 11/30/21 08:54 Home Medications Medication Instructions Recorded Confirmed Type buspirone 30 mg tablet 30 mg PO BID 01/26/18 11/30/21 History ziprasidone HCl 80 mg capsule 80 mg PO BID 01/26/18 11/30/21 History divalproex 500 mg tablet,delayed 500 mg PO BID 05/27/19 11/30/21 History release ziprasidone HCl 40 mg capsule 40 mg PO BID 05/27/19 11/30/21 History incontinence pad, liner, disp #180 ea 06/11/19 10/26/21 Rx blood-glucose meter (OneTouch #1 ea 07/06/19 10/26/21 Rx UltraMini kit) perphenazine 8 mg tablet 8 mg PO BID 06/04/20 11/30/21 History bupropion HCl 150 mg tablet,12 hr 150 mg PO QAM 09/13/20 11/30/21 History sustained-release omeprazole 20 mg capsule,delayed 20 mg PO QAM #90 caps 10/31/20 11/30/21 Rx release lisinopril 10 mg tablet 10 mg PO QAM #90 tabs 11/07/20 11/30/21 Rx montelukast 10 mg tablet 10 mg PO PM #90 tabs 01/17/21 11/30/21 Rx fluticasone 250 mcg-salmeterol 50 1 inh inhalation BID #60 ea 04/03/21 11/30/21 Rx mcg/dose blistr powdr for inhalation lorazepam 1 mg tablet 1 mg PO TID PRN Anxiety 04/19/21 11/30/21 History famotidine 20 mg tablet 20 mg PO BID #180 tabs 05/01/21 11/30/21 Rx pravastatin 20 mg tablet 20 mg PO HS #90 tabs 05/10/21 11/30/21 Rx lancets 33 gauge (OneTouch Delica #100 ea 06/29/21 10/26/21 Rx Lancets) loratadine 10 mg tablet 10 mg PO QAM #90 tabs 07/21/21 11/30/21 Rx sildenafil (pulm.hypertension) 20 20 mg PO DAILY PRN sexual activity 07/26/21 11/30/21 Rx mg tablet #30 tabs fluticasone propionate 50 1 - 2 spray intranasal DAILY PRN 08/31/21 11/30/21 Rx mcg/actuation nasal Allergy Symptoms #16 grams spray,suspension (Allergy Relief (fluticasone)) aspirin 81 mg tablet,delayed 81 mg PO QAM #90 tabs 09/13/21 11/30/21 Rx release acetaminophen 650 mg 650 - 1,300 mg PO DIRECTED PRN 09/19/21 11/30/21 History tablet,extended release (Tylenol 8 Pain Hour) naproxen 500 mg tablet 500 mg PO BID PRN Pain 09/19/21 11/30/21 History albuterol sulfate 90 mcg/actuation 2 puff inhalation QID PRN 10/04/21 11/30/21 Rx aerosol inhaler Shortness Of Breath #18 grams finasteride 5 mg tablet 5 mg PO QAM 10/20/21 11/30/21 History metformin 500 mg tablet 500 mg PO BID 10/20/21 11/30/21 History levothyroxine 50 mcg tablet 175 mcg PO QAM #135 tabs 10/31/21 11/30/21 Rx amoxicillin 500 mg-potassium 1 tab PO BID #14 tabs 11/09/21 11/30/21 Rx clavulanate 125 mg tablet (Augmentin) blood sugar diagnostic #100 ea 11/13/21 Rx polyethylene glycol 3350 17 17 g PO BID PRN Constipation #238 11/27/21 11/30/21 Rx gram/dose oral powder grams Patient History Medical History Acute asthma exacerbation Acute hyponatremia Asthma PRN Use inhalers Bipolar 1 disorder STABLE PER PATIENT BPH (benign prostatic hyperplasia) CKD (chronic kidney disease) Stage 2 Community acquired pneumonia Diabetes mellitus, type 2 NIDDM LOW (dyspnea on exertion) Facial basal cell cancer REMOVED GERD (gastroesophageal reflux disease) Hearing deficit History of blood transfusion after left TKA Hyperlipidemia Hypertension Hypothyroidism (05/20/12) Leg edema 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 Left 08/28/17: SAB at L4-L5 + PNB. [place] teeth extracted 2 Family History Unknown Hypertension Mother Hypertension Sister Diabetes Denies family history of Ovarian cancer Prostate cancer Myocardial infarction Breast cancer Colorectal cancer Social History Smoking Status: Never smoker Second Hand Exposure: Yes (IN PAST); Do You Dip or Chew Tobacco: No; Tobacco Cessation Education Requested by Patient: No Hx Alcohol Use: No Hx Substance Use: No Preferred Language: Romansh Communication Ability: Effective Visual Impairment: Limited Hearing Ability: Normal Dietetics Professor Required: No Beliefs That Will Affect Care: None marital status: Single Current Living Situation: Alone current occupational status: unemployed How many Children do You have: 0 Other Information That Helps Us Care for You: No Feels Safe at Home: No Is there a partner from a previous relationship who is making you feel unsafe now?: No Any Concerns about Your Family Situation: No Would You Like to Speak to Someone About Your Situation: No Safety Concerns: Feels Safe At This Time Seatbelt Use: always Assistive Devices: None Review of Systems Review of Systems: Review of systems: Constitutional: No fever/chills, weakness, fatigue, myalgias, anorexia, night sweats Eyes: No diplopia, no worsening or blurred vision ENT: normal hearing, no trouble swallowing Respiratory: No cough, sputum, dyspnea at rest or on exertion Cardiovascular: No chest pain, tightness or palpitations Abdomen: No pain, nausea, vomiting, diarrhea or constipation : Denies dysuria, hematuria, increased urgency/frequency, urinary retention Musculoskeletal: No joint pain, calf pain, swelling Neurologic: No weakness, numbness/tingling, or balance problems Psychiatric: No anxiety or depression Skin: No rash or itch Physical Exam Physical Exam: General: awake, alert, no apparent distress Head: Normocephalic, atraumatic ENT: PERRL, EOMI, no pharyngeal exudate, mucous membranes moist Chest: Clear to auscultation, on room air, no adventitious breath sounds Cardiac: Regular rate and rhythm, no murmur, no JVD, normal peripheral pulses, good capillary refill Abdominal: NABS x 4 quadrants, soft, nontender to palpation, no rebound, guarding or tenderness Extremities: Right leg is in postop wrap; sensation intact, able to wiggle toes, good, equal cap refill bilaterally, pulses intact, 2+; Normal inspection, no peripheral edema or erythema, calfs nontender to palpation Psych: Normal mood and affect Neuro: AAO x 3, strength intact bilaterally and rated 5/5, no motor deficits, speech is clear, no peripheral sensory deficits Skin: no rash or erythema Results & Data Results & Data ([facility]) Vital Signs (Past 12 Hours) Vital Signs Temp Pulse Pulse Resp BP BP Pulse Ox 11/30/21 14:38 36.2 C L 62 18 104/70 97 11/30/21 14:05 36.8 C 67 18 118/77 97 11/30/21 13:34 35.6 C L 61 16 120/82 99 11/30/21 13:15 36.3 C L 65 24 154/76 H 98 11/30/21 13:05 66 18 131/93 97 11/30/21 12:55 62 18 123/91 95 11/30/21 12:35 64 17 118/75 96 11/30/21 12:45 64 19 114/80 95 11/30/21 12:25 67 14 112/76 95 11/30/21 12:17 36.1 C L 68 16 124/76 100 11/30/21 08:57 36.7 C 76 20 121/86 94 O2 Del Method O2 Flow Rate 11/30/21 14:38 Room Air 11/30/21 14:05 Room Air 11/30/21 13:34 Room Air 11/30/21 13:15 Room Air 11/30/21 13:05 Room Air 11/30/21 12:55 Room Air 11/30/21 12:35 Room Air 11/30/21 12:45 Room Air 11/30/21 12:25 Room Air 11/30/21 12:17 Oxymask 4 11/30/21 08:57 Room Air Laboratory Results Abnormal lab results 11/30/21 Range/Units 12:21 POC Glucose 65 L* (70-99) mg/dl Diagnostic Findings Pelvis X-Ray 11/30/21 12:21 XR pelvis 1-2V routine HISTORY: 61 years-old Male Post Surgical right hip total joint arthroplasty COMPARISON: Pelvis radiograph 10/25/2021 TECHNIQUE: AP view of the pelvis FINDINGS: Moderate left hip osteoarthritis. Satisfactory alignment of the right hip total joint arthroplasty. Expected postoperative soft tissue swelling with deep tissue air. Lucencies of the greater trochanter may be projectional or represent acute nondisplaced fracture. No unexpected opaque foreign bodies. IMPRESSION: Satisfactory alignment of the right hip total joint arthroplasty. ACT 112: Negative or not required by law. The above report was generated using voice recognition software. It may contain grammatical, syntax or spelling errors. Electronically signed by: Jose Erwin M.D. 11/30/2021 12:49 PM PG Care Time/CCT Total # of Minutes Spent Total Time Spent with Patient: Total time spent is greater than 50% in coordination of care (as documented) at patient's floor/unit and/or counseling patient: Coding Level of Care Code 12072 Inpt Consult Level 2 Diagnoses Osteoarthritis of right hip M16.11 Type 2 diabetes mellitus E11.9 Hyperlipidemia E78.5 Hypothyroidism E03.9 Hypertension I10 GERD (gastroesophageal reflux disease) K21.9 Venous insufficiency (chronic) (peripheral) I87.2 Asthma J45.909 Bipolar 1 disorder F31.9 Schizoaffective disorder F25.9
[2021-11-30] MEDS: KETOROLAC TROMETHAMINE 15 MG/ML VIAL IV SCH ×3 (15:00→23:35)
[2021-11-30] MEDS: ACETAMINOPHEN 500 MG TAB PO SCH ×2 (15:01→21:00)
[2021-11-30] MEDS ORDERED: CARBOHYDRATES FOR HYPOGLYCEMIA PO PRN (16:29)
[2021-11-30] MEDS ORDERED: DEXTROSE 50% 50 ML SYRINGE IV PRN (16:29)
[2021-11-30] MEDS ORDERED: GLUCOSE 40% GEL 15 GM TUBE PO PRN (16:29)
[2021-11-30] MEDS ORDERED: GLUCOSE 10 TAB/TUBE PO PRN (16:29)
[2021-11-30] MEDS ORDERED: GLUCAGON FOR INJ 1 MG VIAL SQ PRN (16:29)
[2021-11-30] MEDS ORDERED: metFORMIN HCL 500 MG TAB PO SCH (17:00)
[2021-11-30] MEDS: INSULIN ASPART PER UNIT SC SCH ×2 (17:08→21:27)
[2021-11-30] MEDS ORDERED: TRANEXAMIC ACID / 0.7% NACL 1,000 MG/100 ML BAG IV SCH (18:30)
[2021-11-30] MEDS: FAMOTIDINE 20 MG TAB PO SCH (20:54)
[2021-11-30] MEDS: PERPHENAZINE 2 MG TABLET PO SCH (20:55)
[2021-11-30] MEDS: ziprasidone HCL 80 MG CAP PO SCH (20:57)
[2021-11-30] MEDS: busPIRone 15 MG TAB PO SCH (20:58)
[2021-11-30] MEDS: DOCUSATE SODIUM 100 MG CAP PO SCH (20:59)
[2021-11-30] MEDS ORDERED: SENNA 8.6 MG TAB PO SCH (21:00)
[2021-11-30] MEDS ORDERED: PRAVASTATIN SOD 20 MG TAB PO SCH (21:00)
[2021-11-30] MEDS ORDERED: MONTELUKAST SODIUM 10 MG TABLET PO SCH (21:00)
[2021-11-30] MEDS ORDERED: DIVALPROEX DELAY RELEASE 500 MG TAB PO SCH (21:00)
[2021-12-01] MEDS: ceFAZolin 2000MG 2,000 MG/15 ML SYR IV SCH (03:28)
[2021-12-01] MEDS: KETOROLAC TROMETHAMINE 15 MG/ML VIAL IV SCH (06:27)
[2021-12-01] MEDS: ACETAMINOPHEN 500 MG TAB PO SCH (06:28)
[2021-12-01] MEDS ORDERED: LEVOTHYROXINE SODIUM 175 MCG TABLET PO SCH (06:30)
[2021-12-01 06:55] LABS: Basophils # (auto) 0.01 K/uL (0-0.2); Basophils % (auto) 0.1 %; Eosinophils # (auto) 0.03 K/uL (0-0.50); Eosinophils % (auto) 0.3 %; Hematocrit (blood only) 37.2 % (40.1-51.0); Hemoglobin 12.3 g/dl (14.0-18.0); Immature Granulocytes # (auto) 0.03 K/uL (0.00-0.02); Immature Granulocytes % (auto) 0.3 %; Lymphocytes # (auto) 1.55 K/uL (1.2-3.4); Lymphocytes % (auto) 14.2 %; Mean Corpuscular Hgb Conc 33.1 g/dL (32.0-36.0); Mean Corpuscular Volume 84.5 fL (80.0-100.0); Mean Platelet Volume 9.1 fL (9.4-12.4); Monocytes # (auto) 0.94 K/uL (0.24-0.82); Monocytes % (auto) 8.6 %; Neutrophils # (auto) 8.34 K/uL (1.4-6.5); Neutrophils % (auto) 76.5 %; Platelet Count 199 K/uL (130-400)
[2021-12-01 07:21] LABS: Calcium 7.7 mg/dl (8.5-10.1); Creatinine Clr Calc Pharmacy 97.1 ml/min; Est GFR (African American) 102.2 ml/min; Est GFR (Non-African American) 88.2 ml/min; Potassium 4.4 mmol/L (3.5-5.1)
[2021-12-01] MEDS: INSULIN ASPART PER UNIT SC SCH ×2 (07:59→12:33)
[2021-12-01] MEDS ORDERED: LORATADINE 10 MG TAB PO SCH (09:00)
[2021-12-01] MEDS ORDERED: PANTOprazole 40 MG TAB PO SCH (09:00)
[2021-12-01] MEDS ORDERED: MULTIVITAMIN TAB PO SCH (09:00)
[2021-12-01] MEDS ORDERED: buPROPion SR 150 MG TABCR PO SCH (09:00)
[2021-12-01] MEDS ORDERED: FLUTICASONE/VILANTEROL 200/25MCG 14 PUFFS/INHALER INH SCH (09:00)
[2021-12-01] MEDS ORDERED: ASPIRIN 81 MG ECTAB PO SCH ×2 (09:00)
[2021-12-01] MEDS ORDERED: lisinopril 10 MG TAB PO SCH (09:00)
[2021-12-01] MEDS ORDERED: FINASTERIDE 5 MG TAB PO SCH (09:00)
--- NOTE | 2021-12-01 10:09 | Orthopedic Progress Note ---
Date of Service December 01, 2021 Assessment & Plan (1) S/P total hip arthroplasty: Plan: Total hip precautions Weightbearing as tolerated with walker assistance Abduction pillow use x6 weeks postoperatively PT/OT DVT prophylaxis with aspirin and HERNAN stockings Pain control with p.o. medications Ice with easy wrap Keep Silverlon dressing in place Plan is to discharge home later today with in-home physical therapy for the first 2 weeks postoperatively. Follow-up with [facility] orthopedics as previously scheduled. With questions contact the clinic at [phone] Admission and Anticipated Discharge Date Admission Date: November 30, 2021 Subjective 61-year-old male seen this morning day 1 status post right total hip arthroplasty patient is doing very well this morning. He states that he was able to walk a short lap last night around the floor. He states that he really has no pain at this point. Is anxious to be discharged home today because he has in-home physical therapy scheduled to meet with him at his apartment tomorrow. Currently he denies chest pain, shortness of breath, fever, chills, sweats, lethargy or numbness or tingling in his right lower extremity. He has had no difficulty voiding and has no complaint of any nausea. Review of Systems Review of Systems: All systems reviewed & are unremarkable except as noted in HPI & below Physical Exam Physical Exam: Right hip: Outer dressing was removed. Silverlon is clean dry and intact. Patient is able to perform active straight leg raise test. He is able to actively dorsi and plantarflex foot without difficulty. Quad strength is 3 out of 5. Patient has no pain with gentle logrolling. There is no pain with passive hip flexion and light internal or external rotation. She is neurovascularly intact in the right lower extremity. Results & Data ([facility]) Vital Signs (Past 12 Hours) Vital Signs Temp Pulse Resp BP Pulse Ox O2 Del Method 12/01/21 07:51 36.4 C L 92 H 18 146/81 H 93 Room Air 12/01/21 03:54 36.4 C L 90 18 121/80 92 Room Air 11/30/21 23:41 36.5 C 80 18 147/93 H 96 Room Air Diagnostic Findings Laboratory Results WBC 10.90 K/ul (4.8-10.8) H 12/01/21 06:43 RBC 4.40 M/uL (4.63-6.08) L 12/01/21 06:43 Hgb 12.3 g/dl (14.0-18.0) L 12/01/21 06:43 Hct 37.2 % (40.1-51.0) L 12/01/21 06:43 MCV 84.5 fL (80.0-100.0) 12/01/21 06:43 MCH 28.0 pg (25.0-34.0) 12/01/21 06:43 MCHC 33.1 g/dL (32.0-36.0) 12/01/21 06:43 RDW Std Deviation 46.0 fL (36.4-46.3) 12/01/21 06:43 RDW Coeff of Joey 15.0 % (11.5-14.5) H 12/01/21 06:43 Plt Count 199 K/uL (130-400) 12/01/21 06:43 MPV 9.1 fL (9.4-12.4) L 12/01/21 06:43 Immature Gran % (Auto) 0.3 % 12/01/21 06:43 Neut % (Auto) 76.5 % 12/01/21 06:43 Lymph % (Auto) 14.2 % 12/01/21 06:43 Sierra % (Auto) 8.6 % 12/01/21 06:43 Eos % (Auto) 0.3 % 12/01/21 06:43 Baso % (Auto) 0.1 % 12/01/21 06:43 Neut # (Auto) 8.34 K/uL (1.4-6.5) H 12/01/21 06:43 Lymph # (Auto) 1.55 K/uL (1.2-3.4) 12/01/21 06:43 Sierra # (Auto) 0.94 K/uL (0.24-0.82) H 12/01/21 06:43 Eos # (Auto) 0.03 K/uL (0-0.50) 12/01/21 06:43 Baso # (Auto) 0.01 K/uL (0-0.2) 12/01/21 06:43 Immature Gran # (Auto) 0.03 K/uL (0.00-0.02) H 12/01/21 06:43 Sodium 129 mmol/L (136-145) L 12/01/21 06:43 Potassium 4.4 mmol/L (3.5-5.1) 12/01/21 06:43 Chloride 100 mmol/L (98-107) 12/01/21 06:43 Carbon Dioxide 22 mmol/L (21-32) 12/01/21 06:43 Anion Gap 7 (3-11) 12/01/21 06:43 BUN 11 mg/dl (6-23) 12/01/21 06:43 Creatinine 0.92 mg/dl (0.6-1.4) 12/01/21 06:43 Est Cr Clr Drug Dosing 97.1 ml/min 12/01/21 06:43 Est GFR ( Amer) 102.2 ml/min 12/01/21 06:43 Est GFR (Non-Af Amer) 88.2 ml/min 12/01/21 06:43 BUN/Creatinine Ratio 12.0 (10-20) 12/01/21 06:43 Glucose 118 mg/dl (70-99(Fasting)) H 12/01/21 06:43 POC Glucose 109 mg/dl (70-99) H 12/01/21 07:52 Calcium 7.7 mg/dl (8.5-10.1) L 12/01/21 06:43 Valproic Acid 74 mcg/ml (50-100) 12/01/21 06:43 SARS-CoV-2, RNA, NAAT NEGATIVE (NEGATIVE) 11/30/21 Unknown Impressions Pelvis X-Ray 11/30/21 12:21 XR pelvis 1-2V routine HISTORY: 61 years-old Male Post Surgical right hip total joint arthroplasty COMPARISON: Pelvis radiograph 10/25/2021 TECHNIQUE: AP view of the pelvis FINDINGS: Moderate left hip osteoarthritis. Satisfactory alignment of the right hip total joint arthroplasty. Expected postoperative soft tissue swelling with deep tissue air. Lucencies of the greater trochanter may be projectional or represent acute nondisplaced fracture. No unexpected opaque foreign bodies. IMPRESSION: Satisfactory alignment of the right hip total joint arthroplasty. ACT 112: Negative or not required by law. The above report was generated using voice recognition software. It may contain grammatical, syntax or spelling errors. Electronically signed by: Jose Erwin M.D. 11/30/2021 12:49 PM
[2021-12-01] MEDS: busPIRone 15 MG TAB PO SCH (10:20)
[2021-12-01] MEDS: DOCUSATE SODIUM 100 MG CAP PO SCH (10:21)
[2021-12-01] MEDS: FAMOTIDINE 20 MG TAB PO SCH (10:21)
[2021-12-01] MEDS: ziprasidone HCL 80 MG CAP PO SCH (10:21)
[2021-12-01] MEDS: PERPHENAZINE 2 MG TABLET PO SCH (10:23)
[2021-12-01] MEDS ORDERED: DIVALPROEX DELAY RELEASE 500 MG TAB PO SCH (11:30)
--- NOTE | 2021-12-01 16:07 | Discharge Summary ---
Date of Service December 01, 2021 Admission HPI Per Admitting Provider History of Present Illness (including history relevant to procedure): This 61-year-old male presents to clinic today for his preoperative history and physical. Patient states that he is now having a lot of difficulties with his activities of daily living, for example, getting in and out of his bed. He has difficulty picking up his leg to step into the shower. He uses a walker when he is outside of his house. He reports that his diabetes is under good control. Patient localizes most of his pain to the posterior lateral aspect of his hip. He has failed conservative treatment with physical therapy, rest, ice, nonsteroidal agents as well as ultrasound-guided corticosteroid injections. He is ready to proceed with surgical intervention. Review Of Systems: A 12 point review of systems is performed and is unremarkable except for those things stated in the HPI and past medical history. Past Medical History: Problems: Osteoarthritis of right hip OA (osteoarthritis) of hip Lumbar facet arthropathy Lumbar radicular syndrome Spondylolisthesis, lumbar region S/P total knee replacement S/P orthopedic surgery, follow-up exam Preop examination Peripheral edema Lymphedema of leg Lymphedema Popliteal cyst Pain LBP [Low back pain] Hyperlipidemia GERD DEPRESSION Polydipsia Blood in Stool Chronic kidney disease, unspecified Hyperlipidemia Hypothyroidism ASTHMA Eczema ANXIETY BIPOLAR DISORDER EDEMA HYPERTENSION Sleep apnea Low back pain Constipation, chronic Family history of skin cancer Back pain Basal cell cancer MR (mitral regurgitation) Mild tricuspid regurgitation Knee Diabetes mellitus without mention of complication, type II or unspecified type, not stated as uncontrolled Procedure History Procedure Procedure Date Comments left ACL reconstruction Tonsillectomy Knee - X2 Total knee replacement 08/27/2017 - left Colonoscopy 08/01/2015 - iverticulosis in the sigmoid colon. No specimens collected. Repeat in 5 years for surveillance. Shave biopsy and cauterization of skin 06/01/2014 Shave biopsy and cauterization of skin 01/30/2013 colonoscopy 05/05/2012 Allergies and Sensitivities: NKA Social history: Completely unremarkable Family history: Noncontributory Current Home Meds: (Last Updated 11/28 14:14) FLUoxetine (FLUoxetine 20 mg oral capsule) 60 mg PO Daily albuterol (Ventolin HFA 90 mcg/inh inhalation aerosol) 2 puff inhaled qid PRN: as needed for wheezing amoxicillin (amoxicillin 500 mg oral capsule) 2,000 mg PO As indicated one hour before dental and other procedures as directed amoxicillin (amoxicillin 500 mg oral capsule) 2,000 mg PO As indicated one hour before dental and other procedures as directed aspirin (aspirin 81 mg oral enteric coated tablet) TAKE 1 TABLET EVERY DAY buPROPion (Wellbutrin 100 mg oral tablet) PO Daily 1 1/2 tab daily budesonide-formoterol (Symbicort 160 mcg-4.5 mcg/inh inhalation aerosol) 2 puff inhaled bid busPIRone (busPIRone 30 mg oral tablet) 30 mg PO bid clonazePAM (Klonopin) 1 mg PO tid PRN: Anxiety as needed diabetic supplies (Contour Glucose Meter) Test Daily, DX 250.0 diabetic supplies (Contour Test Strips 100 ct) test daily, DX 250 diabetic supplies (Microlet Lancets 100 ct) test dailyDX 250 diabetic supplies (Accu-Chek Charleen Glucose Monitor) dx. 250.00 diabetic supplies (Accu-Chek CHARLEEN Test Strips) dx. 250.00 patient tests 2-3 times daily diabetic supplies (Accu-Chek FastClix Lancets) dx. 250.00patient tests 2-3 times daily diabetic supplies (Ascensia Contour Test Strips) Check BS daily and pen Tavares Contour Blood Glucose Test Strips - F Maximino 05/21 14:06 diphenhydrAMINE 25 mg PO every 6 hours as needed divalproex sodium (Depakote ER) 2000mg in the afternoon and 1500h.s. docusate-senna (Senna Plus 50 mg-8.6 mg oral tablet) 1-2 tabs daily furosemide (furosemide 20 mg oral tablet) TAKE 1 TABLET EVERY DAY levothyroxine (levothyroxine 175 mcg (0.175 mg) oral tablet) TAKE 1 TABLET EVERY DAY lisinopril (lisinopril 10 mg oral tablet) TAKE 1 TABLET BY MOUTH EVERY DAY magnesium oxide (Mag-Ox 400 oral tablet) 400 mg PO Daily metFORMIN (metFORMIN 500 mg oral tablet) 500 mg PO bid montelukast (Singulair 10 mg oral tablet) TAKE 1 TABLET IN THE EVENING naproxen (naproxen 500 mg oral tablet) TAKE 1 TABLET BY MOUTH TWICE A DAY NEEDED FOR ARTHRITIS, TAKE WITH FOOD omeprazole (omeprazole 20 mg oral delayed release capsule) TAKE 1 CAPSULE BY MOUTH EVERY DAY perphenazine (perphenazine 8 mg oral tablet) Responsible Provider: NELLY WRIGHT [place] 07/27 13:16 polyethylene glycol 3350 (MiraLax) 17 g PO Daily potassium chloride (Klor-Con M20 oral tablet, extended release) TAKE 1 TABLET BY MOUTH EVERY DAY pravastatin (Pravachol 20 mg oral tablet) 20 mg PO Daily ranitidine (ranitidine 150 mg oral capsule) TAKE 1 CAPSULE TWICE DAILY traMADol (traMADol 50 mg oral tablet) 50 mg PO q4h PRN: as needed for pain not to exceed 400 mg/day ziprasidone (Geodon 80 mg oral capsule) 80 mg PO bid Admission Exam Per Admitting Provider Physical Exam: (relevant to the procedure, including heart and lung evaluation) General: Alert and oriented x3 with proper grooming and hygiene Eyes: Pupils are equal react to light with accommodation. Extraocular lids are intact Throat: Deferred due to COVID-19 precautions Cardiac: Regular rate and rhythm no murmurs or gallops appreciated Lungs: Clear to auscultation throughout with no wheezing, rales or rhonchi Abdomen: Obese, nondistended, nontender with NABS Extremities: Right hip; flexion is limited to 95 degrees, internal rotation to 5 degrees and external rotation to 45 degrees. Patient has tenderness to p alpation over the posterior lateral aspect of the hip. He is able to perform an active straight leg raise test without pain. Stinchfield test is negative. Logroll test negative. Patient does walk with the aid of a walker with a slight antalgic gait. Otherwise he is neurovascular intact in the right lower extremity. Neuro: Cranial nerves II through XII are intact no motor or sensory deficit Skin: Normal in appearance no open skin areas or discharge Principal Diagnosis Right Hip osteoarthritis Discharge Exam Right hip: Outer dressing was removed. Silverlon is clean dry and intact. Patient is able to perform active straight leg raise test. He is able to actively dorsi and plantarflex foot without difficulty. Quad strength is 3 out of 5. Patient has no pain with gentle logrolling. There is no pain with passive hip flexion and light internal or external rotation. She is neurovascu larly intact in the right lower extremity. Discharge Data Allergies Allergy/AdvReac Type Severity Reaction Status Date / Time No Known Allergies Allergy Verified 11/30/21 08:54 Consultations 11/27/21 15:00 Consult Hospitalist Routine Procedures Performed Operation Date: 11/30/21 10:35 Actual Procedures p Right Total Hip Arthroplasty(Right) - Lam Dickinson MD Hospital Course (1) S/P total hip arthroplasty: Uneventful overnight stay following [facility]. Very pleased with results. PT with [facility]. Total hip precautions Weightbearing as tolerated with walker assistance Abduction pillow use x6 weeks postoperatively PT/OT DVT prophylaxis with aspirin and HERNAN stockings Pain control with p.o. medications Ice with easy wrap Keep Silverlon dressing in place Plan is to discharge home later today with in-home physical therapy for the first 2 weeks postoperatively. Follow-up with [facility] orthopedics as previously scheduled. With questions contact the clinic at [phone] Total Time Total Time Spent Total Time Spent (In Minutes): 20 mins Discharge Plan Discharge Items Patient Disposition: Home - Home Health Services Reason For Visit: Unilateral Primary Osteoarthritis, Right Hip Discharge Diagnosis: Right hip osteoarthritis Activity: As commented below Lifting: None Bathing: Keep incision dry Bathing Comment: may shower tomorrow Sexual Activity: Wait until after follow-up appointment Exercise/Sports: Wait until after follow-up appointment Weightbearing Comment: as tolerated with walker assistance Non-emergency contact: Surgeon Call non-emergency contact if: you have any medication questions, your pain is not controlled, your temperature is above 101.5, your wound has increased drainage and your wound pain has increased Follow-up/Referrals: ProYohannes MD [Primary Care Provider] - Diet: Regular Addtl Attending Provider Instructions: Post-operative Instructions Dear Patient and Family/Friends, Before you are discharged from the hospital, it is important to know what to expect when you get home after surgery. To that end, we have created this sheet of discharge instructions which covers many commonly asked questions. Make sure you go through this sheet in its entirety with your nurse before you are discharged. Please note that we will go over the specifics of your surgery and recovery when you return for your first post-operative visit. Sincerely, Dr. Dickinson Medications 1. Oxycodone 5 mg: take 1-2 tab every 4-6 hours as needed for pain control. A prescription for this will be sent to your pharmacy. 2. Naproxen 500 mg: resume your twice daily Naproxen for inflammation relief. 3. Aspirin 81 mg: Increase your daily aspirin to twice daily for the first 30 days post operatively for blood clot prevention 4. Extra Strength Tylenol 500 mg: take 2 tabs every 6-8 hours as needed for additional pain relief. Please purchase. Pain Expect to be in a fair amount of pain after surgery. Remember, our goal is not to eliminate your pain, but to make it tolerable. It is a good idea to stay ahead of your pain by taking the medications you were prescribed once you get home. Typically, the pain starts improving 3-7 days after surgery. You should start weaning off the narcotic pain medication (oxycodone, hydrocodone, hydromorphone, morphine) as soon as your pain improves. Please call our office if your pain is not adequately controlled. Ice Ice your operative site at least 5 times a day for 15-30 minutes at a time. Make sure you have a thin cloth between the ice or cooling unit and your skin to prevent barragan bite. This is especially important if you received a nerve block. Continue icing your operative site for the first 5-7 days after surgery, then as needed. Diet/Nausea/Vomiting Start by drinking clear liquids and eating crackers. If you can tolerate this, then you may resume your normal diet. If you feel nauseated or vomit, take Zofran/ondansetron (if prescribed). Please call our office if you have intractable nausea or vomiting, or, if after hours, you may go to the Emergency Room for help. Constipation Constipation is a common side effect of narcotic pain medication. If you have not had a bowel movement within 2 days after surgery, we recommend purchasing an over the counter laxative such as Milk of Magnesia, Dulcolax, or Miralax from a local pharmacy, and taking it as instructed. Call our clinic if any questions. Slings and Braces If you were placed in a sling or brace, it must be worn at all times, including sleep. You may remove your sling or brace for physical therapy, home exercises, and showering. The length of time you will be in your brace and range of motion restrictions depends on what surgery you had; these details will be reviewed at your first post-operative appointment. Nerve block The anesthesia team sometimes places a nerve block to help with post-operative pain control. This results in significant numbness and inability to move the extremity. The nerve block usually wears off in 8-12 hours, but sometimes can last up to 24 hours. Please call our office if you are still unable to move your extremity after 24 hours, unless you received a pain pump to take home. Nerve blocks typically wear off quickly, so start taking pain medication as soon as you start feeling soreness near your surgical site. Weight bearing and Range of Motion. Do not bear any weight through your operative extremity immediately after surgery. If you had upper extremity surgery, do not lift anything with that arm. If you are in a knee brace, keep it locked in place until your follow-up. We will discuss your weight bearing, range of motion, and lifting restrictions in detail at your first post-operative appointment. Continuous Passive Motion (CPM) Machine If you were prescribed a CPM machine, it will start after your first post- operative appointment, at which time we will give you instructions on the range of motion settings and duration of treatment Physical therapy You will be given a prescription for physical therapy or occupational therapy at your first post-operative appointment. Typically, patients start therapy within 1 week of surgery Wound care and showering We will inspect your wound at your first post-operative visit, and may do a dressing change at that time. Most patients will be in a water-proof dressing that is removed 14 days after surgery. It is normal to see some dried blood on the dressing. Do not remove your dressing, paper strips or sutures yourself unless you are given permission. Showering is allowed the day after surgery. Do not scrub or remove any dressings. The wound should not be submerged underwater (i.e. in a bathtub or pool) until 4 weeks after surgery HERNAN stockings If you were given white stockings, these are to be worn at all times except to shower (on both legs) for the first 2 weeks after surgery. Driving You may not drive while taking narcotic pain medication or while in a cast, splint, sling or brace. You, the patient, need to make the final determination about when you are safe to drive, however, the earliest you may consider driving after surgery is below: Hand/Wrist/Elbow Surgery: 3 days Shoulder Surgery: 2 weeks Hip,/Knee/Ankle Surgery: 4 weeks Fracture repair: 6 weeks Return to Work Your return to work depends on what surgery was done and what type of work you do. Please bring any paperwork your employer needs completed to your first po st-operative visit. Also, bring a description of your job duties, as this helps us to understand what risks you may face at work. Travel Avoid long distance travel (greater than 1 hour) in airplanes and cars for the first 6 weeks after surgery. If you must travel, you need to have a Doppler ultrasound done before you travel to rule out a blood clot in your legs. Follow-up You should have a follow-up appointment already scheduled 1-2 days after surgery. If not, please contact our office to make this appointment before you leave the hospital. When to call the office It is normal to have swelling and bruising in the limb that was operated on. This will improve with time. It is also normal to have fevers for the first 2 days after surgery. Reasons you should call your doctor include: Uncontrolled pain; Nausea, vomiting, or constipation that does not improve with medication; Fevers over 101.5, chills, sweats; Drainage or bleeding from the wound; Foul odor; Spreading areas of redness; Any other concerns Pending Studies at Discharge: No Stand-Alone Forms: [facility], Opioid Pain Management Medications and DC Order Prescriptions: New aspirin 81 mg Tablet,Delayed Release (Dr/Ec) 81 mg PO BID 30 Days Qty: 60 0RF acetaminophen [Tylenol Extra Strength] 500 mg Tablet 1,000 mg PO Q8 30 Days Qty: 180 0RF oxycodone 5 mg tablet 5 mg PO Q4H Qty: 28 0RF Continued (DME) incontinence pad, liner, disp Pad See Rx Instructions .ROUTE .MEDSUPPLY Qty: 180 3RF Rx Instructions: Needs 2 dailly (DME) blood-glucose meter [OneTouch UltraMini] Kit See Rx Instructions .ROUTE .MEDSUPPLY Qty: 1 0RF Rx Instructions: use to test 4 times daily omeprazole 20 mg capsule,delayed release(DR/EC) 20 mg PO QAM Qty: 90 3RF lisinopril 10 mg tablet 10 mg PO QAM Qty: 90 3RF montelukast 10 mg tablet 10 mg PO PM Qty: 90 3RF fluticasone propion-salmeterol 250-50 mcg/dose blister with device 1 inh inhalation BID Qty: 60 3RF Rx Instructions: GENERIC famotidine 20 mg tablet 20 mg PO BID Qty: 180 3RF pravastatin 20 mg tablet 20 mg PO HS Qty: 90 3RF (DME) lancets [OneTouch Delica Lancets] 33 gauge misc See Rx Instructions .ROUTE .MEDSUPPLY Qty: 100 5RF Rx Instructions: use to test 4 times a day loratadine 10 mg tablet 10 mg PO QAM Qty: 90 3RF fluticasone propionate [Allergy Relief (fluticasone)] 50 mcg/actuation spray,suspension 1 - 2 spray INTNAS DAILY PRN (Reason: Allergy Symptoms) Qty: 16 3RF Rx Instructions: administer into each nostril aspirin 81 mg tablet,delayed release (DR/EC) 81 mg PO QAM Qty: 90 3RF albuterol sulfate 90 mcg/actuation HFA aerosol inhaler 2 puff INHALATION QID PRN (Reason: Shortness Of Breath) Qty: 18 3RF levothyroxine 50 mcg tablet 175 mcg PO QAM Qty: 135 1RF Rx Instructions: TAKES 3 1/2 TABS. amoxicillin-pot clavulanate [Augmentin] 500-125 mg tablet 1 tab PO BID Qty: 14 0RF (DME) blood sugar diagnostic Strip See Rx Instructions .ROUTE .MEDSUPPLY Qty: 100 5RF Rx Instructions: use to test 4 times daily polyethylene glycol 3350 17 gram/dose powder 17 g PO BID PRN (Reason: Constipation) Qty: 238 3RF sildenafil (pulm.hypertension) 20 mg tablet 20 mg PO DAILY PRN (Reason: sexual activity) Qty: 30 5RF Rx Instructions: 1-4 tablets as needed 1 hour prior to activity lorazepam 1 mg tablet 1 mg PO TID PRN (Reason: Anxiety) Rx Instructions: PER PT "DR SAID TO ONLY TAKE AT HS IF NEEDED". divalproex 500 mg tablet,delayed release (DR/EC) 500 mg PO BID Rx Instructions: 500 mg orally; TAKES 1,000 MG QAM, THEN 1,500 MG QPM. ziprasidone HCl 40 mg capsule 40 mg PO BID Rx Instructions: TOTAL DOSE 120 MG--TAKES WITH 80 MG CAP. ziprasidone HCl 80 mg Capsule 80 mg PO BID Rx Instructions: TOTAL DOSE 120 MG--TAKES WITH 40 MG CAP. buspirone 30 mg Tablet 30 mg PO BID perphenazine 8 mg tablet 8 mg PO BID bupropion HCl 150 mg Tablet Sustained-Release 12 Hr 150 mg PO QAM metformin 500 mg tablet 500 mg PO BID finasteride 5 mg tablet 5 mg PO QAM naproxen 500 mg tablet 500 mg PO BID PRN (Reason: Pain) acetaminophen [Tylenol 8 Hour] 650 mg Tablet Extended Release 650 - 1,300 mg PO DIRECTED PRN (Reason: Pain) Discharge Orders: Discharge Order (Routine); Ordered 12/01/21 Ordered By: Kenneth Jimenez Admission Data Admit Date/Time: 11/30/21 12:21 Attending Provider: Lam Dickinson Admit Provider: Lam Dickinson Primary Care Provider: Yohannes Carrillo Other Providers: Rd Kow[address] ; [place] Other Interventions: Discharge Summary Assessment (RN) Last Done: 12/01/21 13:47
[2021-12-02] MEDS ORDERED: lisinopril 10 MG TAB PO SCH (09:00)
== END 2021-12-01 15:02 | disposition home health service (06) ==
LOC: 3E 08:03 → ASU 08:03

== ENCOUNTER 2023-05-04 03:47 | Observation (INO) ==
[2023-05-04] MEDS ORDERED: ALBUT/IPRATROP 3MG/0.5MG NEB 3 ML VIAL NEB STA (04:29)
[2023-05-04] MEDS ORDERED: BENZONATATE 100 MG CAPSULE PO ONE (04:29)
[2023-05-04] MEDS ORDERED: SODIUM CHLORIDE 0.9% 1,000 ML IV ONE (04:30)
[2023-05-04 04:55] LABS: Basophils # (auto) 0.01 K/uL (0.00-0.20); Basophils % (auto) 0.1 %; Eosinophils # (auto) 0.02 K/uL (0.00-0.50); Eosinophils % (auto) 0.2 %; Hematocrit (blood only) 43.2 % (42.0-52.0); Hemoglobin 14.8 g/dl (14.0-18.0); Immature Granulocytes # (auto) 0.06 K/uL (0.01-0.20); Immature Granulocytes % (auto) 0.7 %; Lymphocytes # (auto) 0.54 K/uL (1.20-3.40); Lymphocytes % (auto) 5.9 %; Mean Corpuscular Hemoglobin 27.3 pg (25.0-34.0); Mean Corpuscular Hgb Conc 34.3 g/dL (32.0-36.0); Mean Corpuscular Volume 79.7 fL (80.0-100.0); Monocytes # (auto) 0.58 K/uL (0.11-0.59); Monocytes % (auto) 6.4 %; Neutrophils # (auto) 7.89 K/uL (1.40-6.50); Neutrophils % (auto) 86.7 %; Platelet Count 222 K/uL (130-400); RDW Coefficient of Variation 15.5 % (11.5-14.5); RDW Standard Deviation 44.5 fL (36.4-46.3); Red Blood Count 5.42 M/uL (4.70-6.10)
[2023-05-04 04:59] LABS: Albumin Globulin Ratio 1.5 (0.9-2); Albumin Level 3.7 gm/dl (3.4-5.0); BUN Creatinine Ratio 8.5 (10-20); Bilirubin,Total 0.4 mg/dl (0.2-1.0); Calcium 8.7 mg/dl (8.6-10.3); Creatinine Clr Calc Pharmacy 88.5 ml/min; Est GFR (African American) 98.2 ml/min; Est GFR (Non-African American) 84.7 ml/min; Globulin 2.5 gm/dl (2.5-4.0); Magnesium 1.5 mg/dl (1.7-2.4); Total Protein 6.2 gm/dl (6.0-8.3)
[2023-05-04 05:04] LABS: Troponin I High Sensitivity 6.7 pg/ml (0-20)
[2023-05-04] MEDS ORDERED: MAGNESIUM SULFATE / D5W 1 GM/100 ML BAG IV STA (05:11)
[2023-05-04 05:13] LABS: Thyroid Stimulating Hormone 0.169 uIu/ml (0.300-4.500)
[2023-05-04] MEDS ORDERED: SODIUM CHLORIDE 0.9% 1,000 ML IV SCH (05:15)
[2023-05-04 05:33] LABS: Adenovirus PCR Not Detected (NotDetected); Bordetella parapertussis PCR Not Detected (NotDetected); Bordetella pertussis PCR Not Detected (NotDetected); Chlamydia pneumoniae PCR Not Detected (NotDetected); Coronavirus 229E PCR Not Detected (NotDetected); Coronavirus HKU1 PCR Not Detected (NotDetected); Coronavirus NL63 PCR Not Detected (NotDetected); Coronavirus OC43PCR Not Detected (NotDetected); Human Metapneumovirus PCR Not Detected (NotDetected); Influenza A PCR Not Detected (NotDetected); Influenza B PCR Not Detected (NotDetected); Mycoplasma pneumoniae PCR Not Detected (NotDetected); Parainfluenza Virus 1 PCR Not Detected (NotDetected); Parainfluenza Virus 2 PCR Not Detected (NotDetected); Parainfluenza Virus 3 PCR Not Detected (NotDetected); Parainfluenza Virus 4 PCR Not Detected (NotDetected); Respiratory Syncytial VirusPCR Not Detected (NotDetected); Rhinovirus/Enterovirus PCR Not Detected (NotDetected)
[2023-05-04 05:48] LABS: T4 Free Thyroxine 1.15 ng/dl (0.61-1.60)
--- NOTE | 2023-05-04 05:56 | Emergency Department Note ---
Impression & Plan Acute upper respiratory infection, COVID-19, Hypoxia, Hypomagnesemia, Hyponatremia ED Provider Note ED Provider Note NAME: LOU COLON AGE:63 SEX: Male : 1960 ARRIVES VIA: EMS INFORMANT: Patient ED PROVIDER(s): Miya Baez DO CHIEF COMPLAINT: Upper respiratory infection HPI: This is a 63-year-old male presents emergency room due to concern for worsening symptoms of an upper respiratory infection. Patient states he first began having symptoms 2 to 3 days ago. No known sick contact. He states he began with a cough, nasal congestion, rhinorrhea, and sore throat. He states he feels weak and has had a decreased appetite. He admits to poor hydration in recent days. He denies abdominal pain, vomiting or diarrhea. Denies any leg swelling. PAST MEDICAL HISTORY:See Below PAST SURGICAL HISTORY:See Below FAMILY HISTORY:See Below SOCIAL HISTORY:See Below HOME MEDICATIONS:See Below ALLERGIES:See Below VITALS:See Below PHYSICAL EXAMINATION: GENERAL: alert, unwell appearing, well nourished, no distress, non-toxic EYE EXAM: normal conjunctiva, PERRL and EOM's grossly intact OROPHARYNX: no exudate, no erythema, lips, buccal mucosa, and tongue normal and mucous membranes are dry NECK: supple, no nuchal rigidity, no adenopathy, non-tender LUNGS: Clear to auscultation. Normal chest wall mechanics, no w/r, rhonchi noted on left HEART: no murmurs, S1 normal and S2 normal ABDOMEN: abdomen soft, non-tender, normo-active bowel sounds, no masses, no rebound or guarding. BACK: Back is symmetrical on inspection and there is no deformity, no midline tenderness, no CVA tenderness. SKIN: no rashes, petechiae, orbruising UPPER EXTREMITIES: upper extremities are grossly normal. FROM, nml pulses b/l. LOWER EXTREMITIES: Trace b/l pitting edema. FROM, nml pulses b/l. NEURO EXAM: Normal sensorium, cranial nerves II-XII grossly intact, normal speech, no facial droop,nogross weakness of arms, no gross weakness of legs. Gross sensation intact. No ataxia. Vital Signs: reviewed and remarkable Differential Diagnosis: pneumonia, bronchitis, COPD/Asthma exacerbation, pneumothorax, pulmonary embolism, congestive heart failure, acute coronary syndrome, as well as others were considered MEDICAL DECISION MAKING: This is a 63-year-old male presents emergency department due to concern for increasing URI symptoms over the last several days and decreased oral intake. Patient afebrile vital signs stable on arrival. Labs drawn and sent, IV established, EKG and chest ray performed bedside interpreted by me and patient monitored on telemetry. Nasal swab obtained for bio fire, patient started on IV fluids due to clinical appearance of dehydration. He was given a DuoNeb additionally as well as a Tessalon Perle. Chest x-ray did not reveal significant pulmonary edema, although I questioned a possible evolving right lower lobe infiltrate. Nasal swab revealed viral cause of his symptoms. Patient unfortunately after receiving a DuoNeb had been noted to become hypoxic by nursing staff and was placed on supplemental oxygen. Patient given Decadron due to positive COVID status with his hypoxia. Patient continued to be hydrated. Case discussed with hospitalist team for additional evaluation and management. Patient also given IV magnesium for repletion as he had mild hypomagnesemia. Hyponatremia also noted although he has had prior episodes of hyponatremia. Consultation(s): 0635: Discussed with Dr. [place], [place] hospitalist for additional evaluation and management. ER Treatment Provided: See below 0550: Nursing staff just reported patient's oxygen saturations dropped to 88%. He was placed on oxygen via nasal cannula at 2 L/min. Diagnostics Interpreted By Me: -ECG: Sinus tachycardia at 109, first-degree AV block, right bundle branch block, leftward axis, nonspecific ST/T wave changes; unchanged compared to September 18, 2023 -Cardiac Monitoring: An order was placed for continuous cardiac monitoring. The monitor shows a rate of 80 with normal sinus rhythm. -Laboratory studies: As stated above and show below. -Imaging studies: X-ray Chest: A single view study of the chest was reviewed and was negative for cardiomegaly, effusion, pulmonary edema, or wide mediastinum. Possible evolving right lower lobe infiltrate. Triage Nursing Note Reviewed Prior/Outside Records Reviewed Past Med/Surg History Medical History Hx of basal cell carcinoma Encounter for pre-operative examination History of blood transfusion after left TKA Psychogenic polydipsia LOW (dyspnea on exertion) Diabetes mellitus, type 2 NIDDM BPH (benign prostatic hyperplasia) Right bundle branch block with left anterior fascicular block Bifascicular block - had ECHO 09/20/21 Follows with PCP Bipolar 1 disorder CKD (chronic kidney disease) Stage 2 Urinary incontinence GERD (gastroesophageal reflux disease) Hearing deficit Hyperlipidemia Asthma used rescue inhaler "recently" Hypertension Sleep apnea NO DEVICE Schizoaffective disorder, bipolar type Hypothyroidism (05/20/12) Surgical History History of right cataract extraction Left eye also done History of hip replacement R hip 11/2021 [place] teeth extracted History of total knee replacement LEFT History of esophagogastroduodenoscopy (EGD) History of colonoscopy History of tonsillectomy Family History Unknown Hypertension Mother Hypertension Sister Diabetes Other No family history of adverse response to anesthesia Denies family history of Ovarian cancer Prostate cancer Myocardial infarction Breast cancer Colorectal cancer Social History Smoking Status: Never smoker Second Hand Exposure: No; Do You Dip or Chew Tobacco: No; Hx Alcohol Use: No Hx Substance Use: No Preferred Language: Spanish Communication Ability: Effective Visual Impairment: Limited Hearing Ability: Normal Linux Developer Required: No Beliefs That Will Affect Care: None marital status: Single Current Living Situation: Alone Current Living Situation Comment: HAS [employer] 35 HOURS PER WEEK current occupational status: unemployed How many Children do You have: 0 Feels Safe at Home: Yes Seatbelt Use: always Assistive Devices: Cane, Glasses and Walker Allergies Allergies Allergy/AdvReac Type Severity Reaction Status Date / Time No Known Allergies Allergy Verified 10/23/22 14:31 Home Meds Home Medications Medication Instructions Recorded Confirmed buspirone 30 mg tablet 30 mg PO BID 01/26/18 10/23/22 ziprasidone HCl 80 mg capsule 80 mg PO BID 01/26/18 10/23/22 divalproex 500 mg tablet,delayed 1,000 mg PO BID 05/27/19 10/23/22 release ziprasidone HCl 40 mg capsule 40 mg PO BID 05/27/19 10/23/22 perphenazine 8 mg tablet 8 mg PO BID 06/04/20 10/23/22 bupropion HCl 150 mg tablet,12 hr 150 mg PO QAM 09/13/20 10/23/22 sustained-release acetaminophen 650 mg 650 - 1,300 mg PO DIRECTED PRN 09/19/21 10/23/22 tablet,extended release (Tylenol 8 Pain Hour) clonazepam 1 mg tablet 1 mg PO TID 02/08/22 10/23/22 Previous Rx's Medication Instructions Recorded incontinence pad, liner, disp #180 ea 06/11/19 [facility] 07/06/19 UltraMini kit) fluticasone propionate 50 1 - 2 spray intranasal DAILY PRN 08/31/21 mcg/actuation nasal Allergy Symptoms #16 grams spray,suspension (Allergy Relief (fluticasone)) finasteride 5 mg tablet See Rx Instructions .Route 07/30/22 .COMPLEX #90 tabs aspirin 81 mg tablet,delayed 81 mg PO QAM #90 tabs 07/31/22 release loratadine 10 mg tablet 10 mg PO QAM #90 tabs 07/31/22 albuterol sulfate 90 mcg/actuation 2 puff inhalation QID PRN 08/02/22 aerosol inhaler Shortness Of Breath #18 grams blood sugar diagnostic #100 ea 08/07/22 famotidine 20 mg tablet 20 mg PO BID #180 tabs 08/22/22 metformin 500 mg tablet 500 mg PO BID #180 tabs 08/22/22 lancets 33 gauge [facility] ea 10/01/22 Lancets) lisinopril 10 mg tablet 10 mg PO QAM #90 tabs 10/24/22 montelukast 10 mg tablet 10 mg PO PM #90 tabs 01/01/23 sildenafil (pulm.hypertension) 20 20 mg PO DAILY PRN sexual activity 01/11/23 mg tablet #30 tabs levothyroxine 50 mcg tablet 175 mcg (3.5 x 50 mcg) PO QAM #135 02/04/23 tabs fluticasone 250 mcg-salmeterol 50 1 inh inhalation BID #60 ea 02/20/23 mcg/dose blistr powdr for inhalation omeprazole 20 mg capsule,delayed See Rx Instructions .Route 03/18/23 release .COMPLEX #90 caps polyethylene glycol 3350 17 17 g PO BID PRN Constipation #238 04/18/23 gram/dose oral powder grams pravastatin 20 mg tablet See Rx Instructions .Route 04/26/23 .COMPLEX #90 tabs Results & Data (ED) Vital Signs Vital Signs - 24 hr 05/04/23 06:02 Pulse Rate [Left Finger] 100 H Respiratory Rate 18 Blood Pressure [Right Arm] 187/92 H Blood Pressure Mean [Right Arm] 123 Pulse Oximetry 92 Oxygen Delivery Method Nasal Cannula Oxygen Flow Rate 2 Laboratory Data 05/04/23 04:22 05/04/23 04:22 Lab Results 05/04/23 05/04/23 Range/Units 03:56 04:22 WBC 9.10 (4.8-10.8) K/ul RBC 5.42 (4.70-6.10) M/uL Hgb 14.8 (14.0-18.0) g/dl Hct 43.2 (42.0-52.0) % MCV 79.7 L (80.0-100.0) fL MCH 27.3 (25.0-34.0) pg MCHC 34.3 (32.0-36.0) g/dL RDW Std Deviation 44.5 (36.4-46.3) fL RDW Coeff of Joey 15.5 H (11.5-14.5) % Plt Count 222 (130-400) K/uL MPV 9.0 L (9.4-12.4) fL Immature Gran % (Auto) 0.7 % Neut % (Auto) 86.7 % Lymph % (Auto) 5.9 % Stark % (Auto) 6.4 % Eos % (Auto) 0.2 % Baso % (Auto) 0.1 % Neut # (Auto) 7.89 H (1.40-6.50) K/uL Lymph # (Auto) 0.54 L (1.20-3.40) K/uL Stark # (Auto) 0.58 (0.11-0.59) K/uL Eos # (Auto) 0.02 (0.00-0.50) K/uL Baso # (Auto) 0.01 (0.00-0.20) K/uL Immature Gran # (Auto) 0.06 (0.01-0.20) K/uL Sodium 127 L (136-145) mmol/L Potassium 4.0 (3.5-5.1) mmol/L Chloride 97 L (98-107) mmol/L Carbon Dioxide 21 (21-32) mmol/L Anion Gap 9 (3-11) BUN 8 (6-23) mg/dl Creatinine 0.94 (0.6-1.4) mg/dl Est Cr Clr Drug Dosing 88.5 ml/min Est GFR ( Amer) 98.2 ml/min Est GFR (Non-Af Amer) 84.7 ml/min BUN/Creatinine Ratio 8.5 L (10-20) Glucose 129 H (70-99(Fasting)) mg/dl Calcium 8.7 (8.6-10.3) mg/dl Magnesium 1.5 L (1.7-2.4) mg/dl Total Bilirubin 0.4 (0.2-1.0) mg/dl AST 31 (13-39) U/L ALT 23 (7-52) U/L Alkaline Phosphatase 79 (34-104) U/L Troponin I High Sens 6.7 (0-20) pg/ml Total Protein 6.2 (6.0-8.3) gm/dl Albumin 3.7 (3.4-5.0) gm/dl Globulin 2.5 (2.5-4.0) gm/dl Albumin/Globulin Ratio 1.5 (0.9-2) TSH 0.169 L (0.300-4.500) uIu/ml Free T4 1.15 (0.61-1.60) ng/dl Adenovirus (PCR) Not Detected (NotDetected) B. pertussis DNA (PCR) Not Detected (NotDetected) B.parapertussis DNA PCR Not Detected (NotDetected) C. pneumoniae DNA (PCR) Not Detected (NotDetected) Coronavirus OC43 (PCR) Not Detected (NotDetected) Coronavirus HKU1 (PCR) Not Detected (NotDetected) Coronavirus 229E (PCR) Not Detected (NotDetected) SARS-CoV-2 (PCR) DETECTED A* (NotDetected) Coronavirus NL63 (PCR) Not Detected (NotDetected) Human Metapneumovir PCR Not Detected (NotDetected) Influenza Type A (PCR) Not Detected (NotDetected) Influenza Type B (PCR) Not Detected (NotDetected) M. pneumoniae (PCR) Not Detected (NotDetected) Parainfluenza 1 (PCR) Not Detected (NotDetected) Parainfluenza 2 (PCR) Not Detected (NotDetected) Parainfluenza 3 (PCR) Not Detected (NotDetected) Parainfluenza 4 (PCR) Not Detected (NotDetected) RSV (PCR) Not Detected (NotDetected) Entero/Rhino (PCR) Not Detected (NotDetected) Administered Medications Albuterol (Albuterol Hfa 8 Gm Inhaler) 2 puffs INH QIDR [facility] Stop: 06/03/23 08:59 Last Admin: 05/04/23 19:09 Dose: 2 puffs Documented By: Admin: 05/04/23 12:01 Dose: 2 puffs Documented By: Admin: 05/04/23 11:45 Dose: Not Given Documented By: Admin: 05/04/23 10:16 Dose: 2 puffs Documented By: VALENTIN Aspirin (Aspirin 81 Mg Ectab) 81 mg PO [facility] Stop: 06/03/23 08:59 Last Admin: 05/04/23 10:14 Dose: 81 mg Documented By: VALENTIN Benzonatate (Benzonatate 100 Mg Capsule) 100 mg PO TID [facility] Stop: 06/03/23 08:59 Last Admin: 05/04/23 20:27 Dose: 100 mg Documented By: Admin: 05/04/23 13:22 Dose: 100 mg Documented By: Admin: 05/04/23 10:14 Dose: 100 mg Documented By: VALENTIN Bupropion HCl (Bupropion Sr 150 Mg Tabcr) [facility] [place] [facility]: 06/03/23 08:59 Last Admin: 05/04/23 10:13 Dose: 150 mg Documented By: VALENTIN Buspirone HCl (Buspirone 15 Mg Tab) 30 mg PO BID [facility] Stop: 06/03/23 08:59 Last Admin: 05/04/23 20:28 Dose: 30 mg Documented By: Admin: 05/04/23 10:13 Dose: 30 mg Documented By: VALENTIN Clonazepam (Clonazepam 1 Mg Tab) 1 mg PO TID [facility] Stop: 06/03/23 08:59 Last Admin: 05/04/23 20:27 Dose: 1 mg Documented By: Admin: 05/04/23 13:22 Dose: 1 mg Documented By: Admin: 05/04/23 10:09 Dose: 1 mg Documented By: VALENTIN Divalproex Sodium (Divalproex Delay Release 500 Mg Tab) 1,000 mg PO BID [facility] Stop: 06/03/23 08:59 Last Admin: 05/04/23 20:29 Dose: 1,000 mg Documented By: Admin: 05/04/23 10:12 Dose: 1,000 mg Documented By: VALENTIN Enoxaparin Sodium (Enoxaparin Inj 40 Mg/0.4 Ml Syr) 40 mg SQ Q24H [facility] Stop: 06/03/23 09:59 Last Admin: 05/04/23 10:46 Dose: 40 mg Documented By: VALENTIN Famotidine (Famotidine 20 Mg Tab) 20 mg PO BID [facility] Stop: 06/03/23 08:59 Last Admin: 05/04/23 20:28 Dose: 20 mg Documented By: Admin: 05/04/23 10:12 Dose: 20 mg Documented By: VALENTIN Finasteride (Finasteride 5 Mg Tab) 5 mg PO DAILY [facility] Stop: 06/03/23 08:59 Last Admin: 05/04/23 10:12 Dose: 5 mg Documented By: VALENTIN Fluticasone/Vilanterol (Fluticasone/Vilanterol 200/25mcg 14 Puffs/Inhaler) 1 puffs INH DAILY [facility]; Protocol Stop: 06/03/23 08:59 Last Admin: 05/04/23 10:17 Dose: 1 puffs Documented By: VALENTIN Guaifenesin (Guaifenesin 600 Mg Tabcr) 1,200 mg PO Q12 [facility] Stop: 06/03/23 08:59 Last Admin: 05/04/23 20:27 Dose: 1,200 mg Documented By: Admin: 05/04/23 10:11 Dose: 1,200 mg Documented By: VALENTIN Dexamethasone 6 mg/ Syringe 1.5 mls @ 1 mls/min IV Q24H [facility] Stop: 06/03/23 08:12 Last Admin: 05/04/23 10:16 Dose: 1 mls/min Documented By: VALENTIN Insulin Aspart (Insulin Aspart Per Unit Charge) 0 units SC ACHS [facility] Stop: 06/03/23 08:12 Last Admin: 05/04/23 20:13 Dose: Not Given Documented By: Admin: 05/04/23 17:23 Dose: 8 units Documented By: RAINER Co-signed By: ORA Admin: 05/04/23 12:57 Dose: 5 units Documented By: VALENTIN Co-signed By: MARTHA Admin: 05/04/23 10:39 Dose: Not Given Documented By: VALENTIN Loratadine (Loratadine 10 Mg Tab) 10 mg PO QAM [facility] Stop: 06/03/23 08:59 Last Admin: 05/04/23 10:10 Dose: 10 mg Documented By: VALENTIN Montelukast Sodium (Montelukast Sodium 10 Mg Tablet) 10 mg PO PM [facility] Stop: 06/03/23 20:59 Last Admin: 05/04/23 20:28 Dose: 10 mg Documented By: KARIE Pantoprazole Sodium (Pantoprazole 40 Mg Tab) [facility] [place] Stop: 06/03/23 09:14 Last Admin: 05/04/23 10:10 Dose: 40 mg Documented By: VALENTIN Perphenazine (Perphenazine 4 Mg Tab) 8 mg PO BID [facility] Stop: 06/03/23 09:14 Last Admin: 05/04/23 20:28 Dose: 8 mg Documented By: Admin: 05/04/23 10:09 Dose: 8 mg Documented By: VALENTIN Ziprasidone (Ziprasidone Hcl 20 Mg Cap) 40 mg PO BID [facility] Stop: 06/03/23 08:59 Last Admin: 05/04/23 20:29 Dose: 40 mg Documented By: Admin: 05/04/23 10:36 Dose: 40 mg Documented By: VALENTIN Ziprasidone (Ziprasidone Hcl 80 Mg Cap) 80 mg PO BID [facility] Stop: 06/03/23 08:59 Last Admin: 05/04/23 20:29 Dose: 80 mg Documented By: Admin: 05/04/23 10:36 Dose: 80 mg Documented By: VALENTIN Discontinued Medications Albuterol (Albut/Ipratrop 3mg/0.5mg Neb 3 Ml Vial) 3 ml NEB NOW STA; Protocol Stop: 05/04/23 04:30 Last Admin: 05/04/23 04:48 Dose: 3 ml Documented By: ANGELITO Benzonatate (Benzonatate 100 Mg Capsule) 100 mg PO NOW ONE Stop: 05/04/23 04:30 Last Admin: 05/04/23 04:48 Dose: 100 mg Documented By: ANGELITO Dexamethasone Sodium Phosphate (DexamethasonePf 10 Mg/Ml Vial) 6 mg IV NOW ONE Stop: 05/04/23 06:00 Last Admin: 05/04/23 06:06 Dose: 6 mg Documented By: ANGELITO Sodium Chloride (Nss) 1,000 mls @ 999 mls/hr IV .Q1H1M ONE Stop: 05/04/23 05:30 Last Infusion: 05/04/23 05:30 Dose: Infused Documented By: Admin: 05/04/23 04:48 Dose: 999 mls/hr Documented By: ANGELITO Magnesium Sulfate/Dextrose (Magnesium Sulfate / D5w) 1 gm in 100 mls @ 100 mls/hr IV NOW STA Stop: 05/04/23 06:10 Last Infusion: 05/04/23 06:50 Dose: Infused Documented By: Admin: 05/04/23 05:31 Dose: 100 mls/hr Documented By: ANGELITO Sodium Chloride (Nss) 1,000 mls @ 250 mls/hr IV .Q4H [facility] Stop: 06/03/23 05:14 Last Infusion: 05/04/23 09:22 Dose: Infused Documented By: Admin: 05/04/23 05:31 Dose: 250 mls/hr Documented By: ANGELITO Magnesium Sulfate/Dextrose (Magnesium Sulfate / D5w) 1 gm in 100 mls @ 50 mls/hr IV ONE ONE Stop: 05/04/23 09:02 Last Infusion: 05/04/23 10:16 Dose: Infused Documented By: Admin: 05/04/23 07:58 Dose: 50 mls/hr Documented By: JANEEN Remdesivir 200 mg/ Sodium (Chloride) 250 mls @ 125 mls/hr IV ONE ONE; Protocol Stop: 05/04/23 10:44 Last Infusion: 05/04/23 12:50 Dose: Infused Documented By: Admin: 05/04/23 10:16 Dose: 125 mls/hr Documented By: VALENTIN Azithromycin 500 mg/ Dextrose 255 mls @ 127.5 mls/hr IV Q24H [facility] Stop: 05/11/23 09:14 Last Admin: 05/04/23 10:41 Dose: Not Given Documented By: NA Discharge Plan Visit Data Chief Complaint: Shortness of Breath/Dyspnea Stated Complaint: SHORT BREATH, COUGH ED Provider: Miya Baez Discharge Problem: Acute upper respiratory infection, COVID-19, Hypoxia, Hypomagnesemia, Hyponatremia Patient Disposition: Admitted As Inpatient Discharge Instructions Interventions: ED Discharge Assessment Last Done: 05/04/23 08:14
[2023-05-04 05:57] LABS: Coronavirus CoV-2 (COVID19)PCR DETECTED (NotDetected)
[2023-05-04] MEDS ORDERED: dexAMETHasone**PF** 10 MG/ML VIAL IV ONE (05:59)
--- NOTE | 2023-05-04 07:01 | History & Physical Report ---
Date of Service May 04, 2023 Assessment & Plan (1) Acute respiratory failure with hypoxia: (2) COVID-19: (3) Hyponatremia: (4) Hypomagnesemia: (5) BPH with obstruction/lower urinary tract symptoms: (6) Type 2 diabetes mellitus: (7) Schizophrenia: Plan Acute respiratory failure with hypoxia/COVID-19 infection- The patient will be admitted to telemetry for serial cardiac enzymes, serial EKG's, cardiac rhythm monitoring and a 2-D echocardiogram with Dopplers. COVID-19 precautions Received dexamethasone 6 mg IV in the ED, DuoNeb treatment, magnesium sulfate and Tessalon Perles Dexamethasone 6 mg IV every morning Remdesivir IV per protocol Azithromycin 500 mg IV daily Guaifenesin extended release 1200 mg p.o. twice daily Albuterol HFA 2 puffs 4 times daily, every 2 hours as needed DuoNebs every 2 hours as needed Nasal cannula oxygen, titrate to keep pulse ox 92-94%, close pulse ox in the ED 88% Tessalon Perles 100 mg p.o. 3 times daily Diabetes mellitus type 2- Hold metformin Placed on Accu-Cheks with NovoLog SSI Expect increase in glucose with the addition of dexamethasone Hypomagnesemia- Magnesium 1.5 on admission received magnesium sulfate 1 g IV in ED given additional magnesium sulfate 1 g IV now follow-up in a.m. tomorrow Hyponatremia- Sodium 127 on admission Likely secondary to COVID-19 associated adrenal insufficiency Repeat in a.m. tomorrow Schizophrenia- Continue usual medications History of Present Illness Chief Complaint: The patient presents to the emergency department with 2 to 3 days of progressively worsening shortness of breath, dyspnea on exertion, productive cough, generalized fatigue and decreased oral intake Primary Care Provider: Yohannes Carrillo MD The patient is a 63-year-old male with a past medical history including GERD, BPH with LUTS, ED, peripheral venous insufficiency, diabetes mellitus type 2, schizophrenia, chronic lower extremity lymphedema, hyperlipidemia, hypo thyroidism, CKD, bipolar 1 disorder and asthma. He presents to the emergency department with symptoms as noted above. He reports having some improvement in his symptoms after receiving dexamethasone 6 mg IV, IV magnesium sulfate 1 g IV, 1 L normal saline bolus, DuoNeb treatment and Tessalon Perles. The patient reports that he has a visiting nurse at home, who has been watching him over the previous few days. Allergies Allergy/AdvReac Type Severity Reaction Status Date / Time No Known Allergies Allergy Verified 10/23/22 14:31 Home Medications Medication Instructions Recorded Confirmed Type buspirone 30 mg tablet 30 mg PO BID 01/26/18 10/23/22 History ziprasidone HCl 80 mg capsule 80 mg PO BID 01/26/18 10/23/22 History divalproex 500 mg tablet,delayed 1,000 mg PO BID 05/27/19 10/23/22 History release ziprasidone HCl 40 mg capsule 40 mg PO BID 05/27/19 10/23/22 History incontinence pad, liner, disp #180 ea 06/11/19 10/23/22 Rx blood-glucose meter (OneTouch #1 ea 07/06/19 10/23/22 Rx UltraMini kit) perphenazine 8 mg tablet 8 mg PO BID 06/04/20 10/23/22 History bupropion HCl 150 mg tablet,12 hr 150 mg PO QAM 09/13/20 10/23/22 History sustained-release fluticasone propionate 50 1 - 2 spray intranasal DAILY PRN 08/31/21 10/23/22 Rx mcg/actuation nasal Allergy Symptoms #16 grams spray,suspension (Allergy Relief (fluticasone)) acetaminophen 650 mg 650 - 1,300 mg PO DIRECTED PRN 09/19/21 10/23/22 History tablet,extended release (Tylenol 8 Pain Hour) clonazepam 1 mg tablet 1 mg PO TID 02/08/22 10/23/22 History finasteride 5 mg tablet See Rx Instructions .Route 07/30/22 10/23/22 Rx .COMPLEX #90 tabs aspirin 81 mg tablet,delayed 81 mg PO QAM #90 tabs 07/31/22 10/23/22 Rx release loratadine 10 mg tablet 10 mg PO QAM #90 tabs 07/31/22 10/23/22 Rx albuterol sulfate 90 mcg/actuation 2 puff inhalation QID PRN 08/02/22 10/23/22 Rx aerosol inhaler Shortness Of Breath #18 grams blood sugar diagnostic #100 ea 08/07/22 10/23/22 Rx famotidine 20 mg tablet 20 mg PO BID #180 tabs 08/22/22 10/23/22 Rx metformin 500 mg tablet 500 mg PO BID #180 tabs 08/22/22 10/23/22 Rx lancets 33 gauge (OneTouch Delica #100 ea 10/01/22 10/23/22 Rx Lancets) lisinopril 10 mg tablet 10 mg PO QAM #90 tabs 10/24/22 Rx montelukast 10 mg tablet 10 mg PO PM #90 tabs 01/01/23 Rx sildenafil (pulm.hypertension) 20 20 mg PO DAILY PRN sexual activity 01/11/23 Rx mg tablet #30 tabs levothyroxine 50 mcg tablet 175 mcg (3.5 x 50 mcg) PO QAM #135 02/04/23 Rx tabs fluticasone 250 mcg-salmeterol 50 1 inh inhalation BID #60 ea 02/20/23 Rx mcg/dose blistr powdr for inhalation omeprazole 20 mg capsule,delayed See Rx Instructions .Route 03/18/23 Rx release .COMPLEX #90 caps polyethylene glycol 3350 17 17 g PO BID PRN Constipation #238 04/18/23 Rx gram/dose oral powder grams pravastatin 20 mg tablet See Rx Instructions .Route 04/26/23 Rx .COMPLEX #90 tabs Past Med/Surg History Medical History Asthma Bipolar 1 disorder BPH (benign prostatic hyperplasia) CKD (chronic kidney disease) Diabetes mellitus, type 2 LOW (dyspnea on exertion) Encounter for pre-operative examination GERD (gastroesophageal reflux disease) Hearing deficit History of blood transfusion Hx of basal cell carcinoma Hyperlipidemia Hypertension Hypothyroidism (05/20/12) 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 Schizoaffective disorder, bipolar type Sleep apnea Urinary incontinence Surgical History History of colonoscopy History of esophagogastroduodenoscopy (EGD) History of hip replacement History of right cataract extraction History of tonsillectomy History of total knee replacement [place] teeth extracted Family History Unknown Hypertension Mother Hypertension Sister Diabetes Other No family history of adverse response to anesthesia Denies family history of Ovarian cancer Prostate cancer Myocardial infarction Breast cancer Colorectal cancer Social History Smoking Status: Never smoker Second Hand Exposure: No; Do You Dip or Chew Tobacco: No; Hx Alcohol Use: No Hx Substance Use: No Preferred Language: [place]i Communication Ability: Effective Visual Impairment: Limited Hearing Ability: Normal Cost Control Analyst Required: No Beliefs That Will Affect Care: None marital status: Single Current Living Situation: Alone Current Living Situation Comment: HAS [employer] 35 HOURS PER WEEK current occupational status: unemployed How many Children do You have: 0 Feels Safe at Home: Yes Seatbelt Use: always Assistive Devices: Cane, Glasses and Walker Review of Systems Review of Systems: The patient denies chest pain, palpitations, sore throat, fevers, chills, sweats, nausea, vomiting, diarrhea , constipation, abdominal pain, pelvic pain, blood in urine or stool, dysuria, urinary frequency or urgency, lightheadedness, dizziness, headache, memory loss, loss of consciousness, rash, abnormal bruising or bleeding, imbalance, focal weakness, numbness or tingling in arms or legs, generalized arthralgias or myalgias, back or neck pain, or night sweats. The review of systems is otherwise negative other than for that already noted above, and at least 10 systems have been reviewed. Physical Exam Physical Exam: The patient is awake, alert and oriented 3, well developed and well nourished, normocephalic and atraumatic, lying in bed and in no acute distress. HEENT--PERRL, EOMI, mucous membranes and oropharynx mildly dry. Neck--supple. No JVD. No bruits. Thyroid normal, trachea midline, no adenopathy. Heart--normal S1 and S2. No murmurs, rubs or gallops. Lungs--coarse breath sounds bilaterally area. no respiratory distress, no accessory muscle use. Abdomen--normal bowel sounds and soft. Nontender. Nondistended, no hernias or masses, no organomegaly. Extremities--no cyanosis or clubbing. No edema. There are good distal pulses b/l. Dermatologic--normal skin turgor, normal color, no abnormal lymph nodes, no rash. Neurologic--cranial nerves II through XII grossly intact. Rheumatologic--normal range of motion. Psychiatric--normal affect. Results & Data Results & Data Vital Signs (Past 12 Hours) Vital Signs Temp Pulse Pulse Resp BP BP Pulse Ox 01/06/24 06:02 100 H 18 187/92 H 92 05/04/23 04:45 100 H 18 143/77 H 95 05/04/23 03:56 93 05/04/23 03:56 37.7 C H 108 H 22 146/89 H 93 05/04/23 03:50 106 H O2 Del Method O2 Flow Rate 05/04/23 06:02 Nasal Cannula 2 05/04/23 04:45 Room Air 05/04/23 03:56 Room Air 05/04/23 03:56 Room Air 05/04/23 03:50 Laboratory Results Laboratory Results WBC 9.10 K/ul (4.8-10.8) 05/04/23 04:22 RBC 5.42 M/uL (4.70-6.10) 05/04/23 04:22 Hgb 14.8 g/dl (14.0-18.0) 05/04/23 04:22 Hct 43.2 % (42.0-52.0) 05/04/23 04:22 MCV 79.7 fL (80.0-100.0) L 05/04/23 04:22 MCH 27.3 pg (25.0-34.0) 05/04/23 04:22 MCHC 34.3 g/dL (32.0-36.0) 05/04/23 04:22 RDW Std Deviation 44.5 fL (36.4-46.3) 05/04/23 04:22 RDW Coeff of Joey 15.5 % (11.5-14.5) H 05/04/23 04:22 Plt Count 222 K/uL (130-400) 05/04/23 04:22 MPV 9.0 fL (9.4-12.4) L 05/04/23 04:22 Immature Gran % (Auto) 0.7 % 05/04/23 04:22 Neut % (Auto) 86.7 % 05/04/23 04:22 Lymph % (Auto) 5.9 % 05/04/23 04:22 Kings % (Auto) 6.4 % 05/04/23 04:22 Eos % (Auto) 0.2 % 05/04/23 04:22 Baso % (Auto) 0.1 % 05/04/23 04:22 Neut # (Auto) 7.89 K/uL (1.40-6.50) H 05/04/23 04:22 Lymph # (Auto) 0.54 K/uL (1.20-3.40) L 05/04/23 04:22 Kings # (Auto) 0.58 K/uL (0.11-0.59) 05/04/23 04:22 Eos # (Auto) 0.02 K/uL (0.00-0.50) 05/04/23 04:22 Baso # (Auto) 0.01 K/uL (0.00-0.20) 05/04/23 04:22 Immature Gran # (Auto) 0.06 K/uL (0.01-0.20) 05/04/23 04:22 Sodium 127 mmol/L (136-145) L 05/04/23 04:22 Potassium 4.0 mmol/L (3.5-5.1) 05/04/23 04:22 Chloride 97 mmol/L (98-107) L 05/04/23 04:22 Carbon Dioxide 21 mmol/L (21-32) 05/04/23 04:22 Anion Gap 9 (3-11) 05/04/23 04:22 BUN 8 mg/dl (6-23) 05/04/23 04:22 Creatinine 0.94 mg/dl (0.6-1.4) 05/04/23 04:22 Est Cr Clr Drug Dosing 88.5 ml/min 05/04/23 04:22 Est GFR ( Amer) 98.2 ml/min 05/04/23 04:22 Est GFR (Non-Af Amer) 84.7 ml/min 05/04/23 04:22 BUN/Creatinine Ratio 8.5 (10-20) L 05/04/23 04:22 Glucose 129 mg/dl (70-99(Fasting)) H 05/04/23 04:22 Calcium 8.7 mg/dl (8.6-10.3) 05/04/23 04:22 Magnesium 1.5 mg/dl (1.7-2.4) L 05/04/23 04:22 Total Bilirubin 0.4 mg/dl (0.2-1.0) 05/04/23 04:22 AST 31 U/L (13-39) 05/04/23 04:22 ALT 23 U/L (7-52) 05/04/23 04:22 Alkaline Phosphatase 79 U/L (34-104) 05/04/23 04:22 Troponin I High Sens 6.7 pg/ml (0-20) 05/04/23 04:22 Total Protein 6.2 gm/dl (6.0-8.3) 05/04/23 04:22 Albumin 3.7 gm/dl (3.4-5.0) 05/04/23 04:22 Globulin 2.5 gm/dl (2.5-4.0) 05/04/23 04:22 Albumin/Globulin Ratio 1.5 (0.9-2) 05/04/23 04:22 TSH 0.169 uIu/ml (0.300-4.500) L 05/04/23 04:22 Free T4 1.15 ng/dl (0.61-1.60) 05/04/23 04:22 Adenovirus (PCR) Not Detected (NotDetected) 05/04/23 03:56 B. pertussis DNA (PCR) Not Detected (NotDetected) 05/04/23 03:56 B.parapertussis DNA PCR Not Detected (NotDetected) 05/04/23 03:56 C. pneumoniae DNA (PCR) Not Detected (NotDetected) 05/04/23 03:56 Coronavirus OC43 (PCR) Not Detected (NotDetected) 05/04/23 03:56 Coronavirus HKU1 (PCR) Not Detected (NotDetected) 05/04/23 03:56 Coronavirus 229E (PCR) Not Detected (NotDetected) 05/04/23 03:56 SARS-CoV-2 (PCR) DETECTED (NotDetected) A* 05/04/23 03:56 Coronavirus NL63 (PCR) Not Detected (NotDetected) 05/04/23 03:56 Human Metapneumovir PCR Not Detected (NotDetected) 05/04/23 03:56 Influenza Type A (PCR) Not Detected (NotDetected) 05/04/23 03:56 Influenza Type B (PCR) Not Detected (NotDetected) 05/04/23 03:56 M. pneumoniae (PCR) Not Detected (NotDetected) 05/04/23 03:56 Parainfluenza 1 (PCR) Not Detected (NotDetected) 05/04/23 03:56 Parainfluenza 2 (PCR) Not Detected (NotDetected) 05/04/23 03:56 Parainfluenza 3 (PCR) Not Detected (NotDetected) 05/04/23 03:56 Parainfluenza 4 (PCR) Not Detected (NotDetected) 05/04/23 03:56 RSV (PCR) Not Detected (NotDetected) 05/04/23 03:56 Entero/Rhino (PCR) Not Detected (NotDetected) 05/04/23 03:56 Code Status & VTE Plan Code Status Full code VTE Prophylaxis Plan VTE Prophylaxis will be ordered: Yes PG Care Time/CCT Total # of Minutes Spent Total Time Spent with Patient: Total time spent is greater than 50% in coordination of care (as documented) at patient's floor/unit and/or counseling patient: Coding Level of Care Code 11908 INT INP/OBS CARE 3/75MIN Diagnoses Acute respiratory failure with hypoxia J96.01 COVID-19 U07.1 Hyponatremia E87.1 Hypomagnesemia E83.42 BPH with obstruction/lower urinary tract symptoms N40.1; N13.8 Type 2 diabetes mellitus E11.9 Schizophrenia F20.9
[2023-05-04] MEDS ORDERED: MAGNESIUM SULFATE / D5W 1 GM/100 ML BAG IV ONE (07:03)
--- NOTE | 2023-05-04 07:27 | XRay Report ---
XR chest 1V portable CLINICAL HISTORY: cough, fever COMPARISON STUDY: Chest radiograph September 19, 2021. Chest CT January 22, 2019. FINDINGS: Lung volumes are normal. Lungs are clear. There is no pneumothorax or pleural effusion. Car diac size is normal. Mediastinal contours are stable. There is no evidence for pulmonary edema. IMPRESSION: No acute cardiopulmonary findings. No significant change in appearance of the chest. ACT 112: Negative or not required by law. Electronically signed by: Quoc Kan M.D. 05/04/2023 7:26 AM
[2023-05-04] MEDS ORDERED: CARBOHYDRATES FOR HYPOGLYCEMIA PO PRN (08:13)
[2023-05-04] MEDS ORDERED: ALBUT/IPRATROP 3MG/0.5MG NEB 3 ML VIAL NEB PRN (08:13)
[2023-05-04] MEDS ORDERED: ONDANSETRON INJ 2 MG/ML 2 ML VIAL IV PRN (08:13)
[2023-05-04] MEDS ORDERED: DEXTROSE 50% 50 ML SYRINGE IV PRN (08:13)
[2023-05-04] MEDS ORDERED: POLYETHYLENE (MIRALAX) 17 GM PACK PO PRN (08:13)
[2023-05-04] MEDS ORDERED: GLUCOSE 10 TAB/TUBE PO PRN (08:13)
[2023-05-04] MEDS ORDERED: ACETAMINOPHEN 325 MG TAB PO PRN (08:13)
[2023-05-04] MEDS ORDERED: GLUCOSE 40% GEL 15 GM TUBE PO PRN (08:13)
[2023-05-04] MEDS ORDERED: GLUCAGON FOR INJ 1 MG VIAL SQ PRN (08:13)
[2023-05-04] MEDS ORDERED: REMDESIVIR 200 MG in SODIUM CHLORIDE 0.9% 210 ML IV ONE (08:45)
[2023-05-04] MEDS ORDERED: AZITHROMYCIN 500 MG in DEXTROSE 5% 250 ML IV SCH (09:15)
[2023-05-04] MEDS: clonazePAM 1 MG TAB PO SCH ×3 (10:09→20:27)
[2023-05-04] MEDS: PERPHENAZINE 4 MG TAB PO SCH ×2 (10:09→20:28)
[2023-05-04] MEDS: LORATADINE 10 MG TAB PO SCH (10:10)
[2023-05-04] MEDS: PANTOprazole 40 MG TAB PO SCH (10:10)
[2023-05-04] MEDS: guaiFENesin 600 MG TABCR PO SCH ×2 (10:11→20:27)
[2023-05-04] MEDS: FINASTERIDE 5 MG TAB PO SCH (10:12)
[2023-05-04] MEDS: DIVALPROEX DELAY RELEASE 500 MG TAB PO SCH ×2 (10:12→20:29)
[2023-05-04] MEDS: FAMOTIDINE 20 MG TAB PO SCH ×2 (10:12→20:28)
[2023-05-04] MEDS: buPROPion SR 150 MG TABCR PO SCH (10:13)
[2023-05-04] MEDS: busPIRone 15 MG TAB PO SCH ×2 (10:13→20:28)
[2023-05-04] MEDS: BENZONATATE 100 MG CAPSULE PO SCH ×3 (10:14→20:27)
[2023-05-04] MEDS: ASPIRIN 81 MG ECTAB PO SCH (10:14)
[2023-05-04] MEDS: dexAMETHasone 6 MG in SYRINGE 0 ML IV SCH (10:16)
[2023-05-04] MEDS: ALBUTEROL HFA 8 GM INHALER INH SCH ×4 (10:16→19:09)
[2023-05-04] MEDS: FLUTICASONE/VILANTEROL 200/25MCG 14 PUFFS/INHALER INH SCH (10:17)
[2023-05-04] MEDS: ziprasidone HCL 80 MG CAP PO SCH ×2 (10:36→20:29)
[2023-05-04] MEDS: INSULIN ASPART PER UNIT CHARGE SC SCH ×4 (10:39→20:13)
[2023-05-04] MEDS: ENOXAPARIN INJ 40 MG/0.4 ML SYR SQ SCH (10:46)
--- NOTE | 2023-05-04 14:43 | History & Physical Bridge Note ---
Date of Service May 04, 2023 History & Physical Bridge Note I have examined the patient, reviewed the History & Physical and in the interval since the performance of the History & Physical I have noted the following changes of clinical significance: Pt seen after arrival to room 205 at 1430 and reports he is already feeling tremendously better and asks repeatedly if he could be discharged tomorrow. He is weaned off oxygen and is POx 95% on room air. On numerous QT prolonging meds and no PNA on CXR--> can dc azithromycin COntinue decadron, Remdesevir, control glucose Na+ only slightly below baseline and received 1000mL NS in ER, should improve by tomorrow, follow BMP Mentating normally, reports "I am not retarded, I am actually quite intelligent." Can likely dc to home tomorrow
[2023-05-04] MEDS ORDERED: MONTELUKAST SODIUM 10 MG TABLET PO SCH (21:00)
[2023-05-05] MEDS ORDERED: LEVOTHYROXINE SODIUM 175 MCG TABLET PO SCH (06:30)
[2023-05-05] MEDS: ALBUTEROL HFA 8 GM INHALER INH SCH ×2 (07:26→11:30)
[2023-05-05 07:30] LABS: Basophils # (auto) 0.01 K/uL (0.00-0.20); Basophils % (auto) 0.1 %; Hematocrit (blood only) 43.8 % (42.0-52.0); Hemoglobin 14.3 g/dl (14.0-18.0); Immature Granulocytes # (auto) 0.05 K/uL (0.01-0.20); Immature Granulocytes % (auto) 0.5 %; Lymphocytes # (auto) 1.12 K/uL (1.20-3.40); Lymphocytes % (auto) 12.2 %; Mean Corpuscular Hemoglobin 26.9 pg (25.0-34.0); Mean Corpuscular Hgb Conc 32.6 g/dL (32.0-36.0); Mean Corpuscular Volume 82.3 fL (80.0-100.0); Mean Platelet Volume 8.7 fL (9.4-12.4); Monocytes % (auto) 8.7 %; Neutrophils % (auto) 78.5 %; Platelet Count 209 K/uL (130-400); RDW Coefficient of Variation 15.9 % (11.5-14.5); RDW Standard Deviation 47.6 fL (36.4-46.3); Red Blood Count 5.32 M/uL (4.70-6.10); White Blood Count 9.18 K/ul (4.8-10.8)
[2023-05-05] MEDS: INSULIN ASPART PER UNIT CHARGE SC SCH ×2 (07:45→12:48)
[2023-05-05 08:03] LABS: Albumin Globulin Ratio 1.4 (0.9-2); Albumin Level 3.4 gm/dl (3.4-5.0); BUN Creatinine Ratio 16.2 (10-20); Bilirubin,Total 0.2 mg/dl (0.2-1.0); Calcium 8.6 mg/dl (8.6-10.3); Creatinine Clr Calc Pharmacy 112.5 ml/min; Est GFR (African American) 112.2 ml/min; Est GFR (Non-African American) 96.8 ml/min; Globulin 2.5 gm/dl (2.5-4.0); Magnesium 2.2 mg/dl (1.7-2.4); Potassium 4.4 mmol/L (3.5-5.1); Total Protein 5.9 gm/dl (6.0-8.3)
[2023-05-05] MEDS: dexAMETHasone 6 MG in SYRINGE 0 ML IV SCH (10:11)
[2023-05-05] MEDS: guaiFENesin 600 MG TABCR PO SCH (10:11)
[2023-05-05] MEDS: PANTOprazole 40 MG TAB PO SCH (10:12)
[2023-05-05] MEDS: FINASTERIDE 5 MG TAB PO SCH (10:12)
[2023-05-05] MEDS: ASPIRIN 81 MG ECTAB PO SCH (10:12)
[2023-05-05] MEDS: FAMOTIDINE 20 MG TAB PO SCH (10:13)
[2023-05-05] MEDS: PERPHENAZINE 4 MG TAB PO SCH (10:13)
[2023-05-05] MEDS: buPROPion SR 150 MG TABCR PO SCH (10:13)
[2023-05-05] MEDS: LORATADINE 10 MG TAB PO SCH (10:13)
[2023-05-05] MEDS: DIVALPROEX DELAY RELEASE 500 MG TAB PO SCH (10:14)
[2023-05-05] MEDS: BENZONATATE 100 MG CAPSULE PO SCH (10:14)
[2023-05-05] MEDS: busPIRone 15 MG TAB PO SCH (10:15)
[2023-05-05] MEDS: ENOXAPARIN INJ 40 MG/0.4 ML SYR SQ SCH (10:15)
[2023-05-05] MEDS: FLUTICASONE/VILANTEROL 200/25MCG 14 PUFFS/INHALER INH SCH (10:16)
[2023-05-05] MEDS: ziprasidone HCL 80 MG CAP PO SCH (10:16)
[2023-05-05] MEDS: clonazePAM 1 MG TAB PO SCH (10:32)
--- NOTE | 2023-05-05 10:45 | Communication Note ---
Date of Service: May 05, 2023 By CMS guidelines, a determination that the admission or continued stay is not medically necessary has been made by a member of the UR committee and a phy sician for this hospital stay, therefore a Code 44 will be completed and the Inpatient admission will be changed to outpatient.
--- NOTE | 2023-05-05 10:52 | Discharge Summary ---
Discharge Summary Date of Service May 05, 2023 Notes For Next Care Provider Medication Changes From Visit dexamethasone 6mg po daily x 8 more days Augmentin 875mg po bid x 7 days Admission HPI Per Admitting Provider The patient is a 63-year-old male with a past medical history including GERD, BPH with LUTS, ED, peripheral venous insufficiency, diabetes mellitus type 2, schizophrenia, chronic lower extremity lymphedema, hyperlipidemia, hypothyroidism, CKD, bipolar 1 disorder and asthma. He presents to the emergency department with symptoms as noted above. He reports having some improvement in his symptoms after receiving dexamethasone 6 mg IV, IV magnesium sulfate 1 g IV, 1 L normal saline bolus, DuoNeb treatment and Tessalon Perles. The patient reports that he has a visiting nurse at home, who has been watching him over the previous few days. Principal Dx & Hospital Course #1 = Principal Diagnosis (1) Acute respiratory failure with hypoxia: 2/2 COVID-19, resolved within hours of admission passed 2 step walk test the next day, no supplemental O2 needed continue decadron to finish out 10 day course (2) COVID-19: with hypoxia no PNA on CXR patient insists on having abx for bronchitis-give AUgmentin 875mg po bid x 7 days, avoid azithro due to multiple QT prolonging meds finish out decadron course as above received Remdesevir x 2 doses, but no Paxlovid due to multiple interactions with his home meds (3) Hyponatremia: chronic, 127 on arrival is below baseline 2/2 poor po intake, hypovolemia received 1L NS and improved to 136 on day of discharge follow as outpt (4) Hypomagnesemia: replaced (5) BPH with obstruction/lower urinary tract symptoms: continue home meds, no acute issues (6) Type 2 diabetes mellitus: controlled A1C pending at time of discharge, f/u PCP, resume ean emetformin (7) Schizophrenia: Bipolar 1 d/o with schizoaffective d/o, continue home meds Discharge Exam Constitutional WD/WN, vitals as above Neck trachea midline, no thyromegaly Respiratory normal respiratory effort, lungs clear to auscultation + cough (with deep inspiration) Cardiovascular Rate/Rhythm: regular rate and regular rhythm Heart Sounds: no murmur Extremities: + edema (1+ pitting edema, chronic for him, improved from yesterday) Gastrointestinal (Abdomen) normal bowel sounds, soft, nontender, no hepatosplenomegaly Musculoskeletal Extremities: extremities normal to inspection; no cyanosis and no clubbing Skin no rashes, warm and dry Neurologic moves all extremities and awake; no focal motor deficits Psychiatric A+Ox3, euthymic affect Updated Medication List Medication Instructions Recorded Confirmed Type buspirone 30 mg tablet 30 mg PO BID 01/26/18 10/23/22 History ziprasidone HCl 80 mg capsule 80 mg PO BID 01/26/18 10/23/22 History divalproex 500 mg tablet,delayed 1,000 mg PO BID 05/27/19 10/23/22 History release ziprasidone HCl 40 mg capsule 40 mg PO BID 05/27/19 10/23/22 History incontinence pad, liner, disp #180 ea 06/11/19 10/23/22 Rx blood-glucose meter (OneTouch #1 ea 07/06/19 10/23/22 Rx UltraMini kit) perphenazine 8 mg tablet 8 mg PO BID 06/04/20 10/23/22 History bupropion HCl 150 mg tablet,12 hr 150 mg PO QAM 09/13/20 10/23/22 History sustained-release fluticasone propionate 50 1 - 2 spray intranasal DAILY PRN 08/31/21 10/23/22 Rx mcg/actuation nasal Allergy Symptoms #16 grams spray,suspension (Allergy Relief (fluticasone)) acetaminophen 650 mg 650 - 1,300 mg PO DIRECTED PRN 09/19/21 10/23/22 History tablet,extended release (Tylenol 8 Pain Hour) clonazepam 1 mg tablet 1 mg PO TID 02/08/22 10/23/22 History finasteride 5 mg tablet See Rx Instructions .Route 07/30/22 10/23/22 Rx .COMPLEX #90 tabs aspirin 81 mg tablet,delayed 81 mg PO QAM #90 tabs 07/31/22 10/23/22 Rx release loratadine 10 mg tablet 10 mg PO QAM #90 tabs 07/31/22 10/23/22 Rx albuterol sulfate 90 mcg/actuation 2 puff inhalation QID PRN 08/02/22 10/23/22 Rx aerosol inhaler Shortness Of Breath #18 grams blood sugar diagnostic #100 ea 08/07/22 10/23/22 Rx famotidine 20 mg tablet 20 mg PO BID #180 tabs 08/22/22 10/23/22 Rx metformin 500 mg tablet 500 mg PO BID #180 tabs 08/22/22 10/23/22 Rx lancets 33 gauge (OneTouch Delica #100 ea 10/01/22 10/23/22 Rx Lancets) lisinopril 10 mg tablet 10 mg PO QAM #90 tabs 10/24/22 Rx montelukast 10 mg tablet 10 mg PO PM #90 tabs 01/01/23 Rx sildenafil (pulm.hypertension) 20 20 mg PO DAILY PRN sexual activity 01/11/23 Rx mg tablet #30 tabs levothyroxine 50 mcg tablet 175 mcg (3.5 x 50 mcg) PO QAM #135 02/04/23 Rx tabs fluticasone 250 mcg-salmeterol 50 1 inh inhalation BID #60 ea 02/20/23 Rx mcg/dose blistr powdr for inhalation omeprazole 20 mg capsule,delayed See Rx Instructions .Route 03/18/23 Rx release .COMPLEX #90 caps polyethylene glycol 3350 17 17 g PO BID PRN Constipation #238 04/18/23 Rx gram/dose oral powder grams pravastatin 20 mg tablet See Rx Instructions .Route 04/26/23 Rx .COMPLEX #90 tabs amoxicillin 875 mg-potassium 1 tab PO BID #14 tabs 05/05/23 Rx clavulanate 125 mg tablet benzonatate 100 mg capsule 100 mg PO TID PRN cough #30 caps 05/05/23 Rx dexamethasone 6 mg tablet 6 mg PO DAILY #8 tabs 05/05/23 Rx Hospital Stay Data Consultations 05/04/23 06:37 ED Decision to Admit Stat Pending Results Patient Have Any Pending Studies at Discharge: No Discharge Instructions Given to Patient (Per Discharging Provider) Please finish out the course of dexamethasone which is a steroid to help inflammation in your lungs. You can take the Augmentin x 7 day for bronchitis. You did not need nay further supplemental oxygen shortly after you were admitted. Total Time Total Time Spent Total Time Spent (In Minutes): 35 min Coding Level of Care Code 06323 INP/OBS DISCH >30 MIN Diagnoses Acute respiratory failure with hypoxia J96.01 COVID-19 U07.1 Hyponatremia E87.1 Hypomagnesemia E83.42 BPH with obstruction/lower urinary tract symptoms N40.1; N13.8 Type 2 diabetes mellitus E11.9 Schizophrenia F20.9
[2023-05-05] MEDS ORDERED: REMDESIVIR 100 MG in SODIUM CHLORIDE 0.9% 230 ML IV SCH (12:00)
--- NOTE | 2023-05-05 22:17 | Electrocardiogram Report ---
Test Reason : Blood Pressure : / mmHG Vent. Rate : 109 BPM Atrial Rate : 109 BPM P-R Int : 206 ms QRS Dur : 144 ms QT Int : 350 ms P-R-T Axes : 058 -69 082 degrees QTc Int : 471 ms Sinus tachycardia Right bundle branch block Left anterior fascicular block Bifascicular block Abnormal ECG When compared with ECG of 19-SEP-2021 23:04, No significant change Confirmed by Lucius Acosta ([id number]) on 05/05/2023 10:16:45 PM Referred By: REFERRED SELF Confirmed By:Lucius Acosta
[2023-05-06 07:32] LABS: Estimated Average Glucose 120 mg/dl; Hemoglobin A1C 5.8 % (4.5-5.6)
== END 2023-05-05 12:55 | disposition home health service (06) | DRG 177 ==
LOC: SUATTDRO → ED 03:47 → EDINP 06:54 → INTOOBSV 06:54 → 2E 08:14

== ENCOUNTER 2023-10-31 15:02 | Inpatient (IN) ==
--- NOTE | 2023-10-31 15:19 | Emergency Department Note ---
Impression & Plan Pneumonia, Hypoxia, Leukocytosis ED Provider Note NAME: LOU COLON AGE: 63 SEX: M : 1960 ARRIVES VIA: Ambulance INFORMANT: Patient ED PROVIDER(S): Kamari Quintana MD CHIEF COMPLAINT: Fever, SOB PLAN: Disposition: Admit MEDICAL DECISION MAKING: The patient is a pleasant 63-year-old gentleman with a past medical history of schizophrenia, diabetes, GERD, hypertension, hyperlipidemia who presents to the emergency department via EMS for evaluation of shortness of breath, fevers, body aches, nausea with poor appetite over the past 24 hours. Patient denies any chest pain. He denies any diarrhea. Denies any urinary symptoms. He reports he has been not been able to eat or drink due to his upset stomach. On evaluation the patient is no distress, febrile to 38.2 with heart in the 100s and vital signs otherwise stable. He appears clinically dry but with chronic non-pitting lymphedema. Patient has scant wheezes and rhonchi of bilateral lower lung savage with normal respiratory effort. EKG without overt acute ischemia. CXR symptoms with suggestion of right basilar/elda-hilar airspace opacity per my preliminary independent interpretation. WBC 14.9 K with neutrophil predominance though no left shift. H/H and platelets within normal limits. Chemistry without metabolic acidosis. Magnesium 1.5 with repletion initiated. Lactic acid 2.0, within normal limits. LFTs unremarkable. High-sensitivity troponin is 5.4, within normal limits. BNP is within normal limits. Lipase is not elevated. Procalcitonin is mildly elevated at 0.82. UA without evidence of infection. Depakote level is therapeutic. MRSA swab was negative. Respiratory BioFire was negative. Given the patient's fever with leukocytosis and respiratory symptoms presentation is consistent with pneumonia. Given his mild hypoxia patient does agree with plan for admission for further management. Treatment initiated with ceftriaxone and doxycycline for CAP coverage. Patient was treated with 2.5L NSS, >30cc/kg per IBW. He was additionally given guaifenesin as well as Solu-Medrol and DuoNeb for component of bronchospasm. Case was discussed with Errol Martin [facility], with Dr. Ruiz, [facility] hospitalist who will evaluate the patient for admission. Further management per admitting team. Triage Nursing notes reviewed and agree them. Prior/external medical records reviewed Vital Signs: reviewed Differential diagnosis: Reactive airway disease, pneumonia, pneumothorax, COPD, CHF, infections, cardiac ischemia, pulmonary embolism, musculoskeletal, gastrointestinal, as well as other pathologies. ER treatment provided: See below. Diagnostics interpreted by me: ECG: Sinus tachycardia 108bpm no ectopy, LVH, similar to prior, no overt ST elevation or depression, Cardiac Monitoring: An order for continuous cardiac monitoring was placed and demonstrated sinus tachycardia, 108bpm, no ectopy. Laboratory studies: See below Imaging studies: See below Consultation(s): Errol Martin, [facility], with Dr. Ruiz, [facility] hospitalist HPI: The patient is a pleasant 63-year-old gentleman with a past medical history of schizophrenia, diabetes, GERD, hypertension, hyperlipidemia who presents to the emergency department via EMS for evaluation of shortness of breath, fevers, body aches, nausea with poor appetite over the past 24 hours. Patient denies any chest pain. He denies any diarrhea. Denies any urinary symptoms. He reports he has been not been able to eat or drink due to his upset stomach. ROS: See above HPI for pertinent positives & negatives. A total of 10 systems reviewed and were otherwise negative. VITALS:See Below PHYSICAL EXAMINATION: GENERAL: Awake, alert, fatigued-appearing, in no distress HENT: Normocephalic, atraumatic. Oropharynx with dry mucous membranes and otherwise unremarkable. EYES: Normal conjunctiva. Sclera non-icteric. NECK: Supple. No nuchal rigidity. FROM. No JVD. RESPIRATORY: Scant wheezes and rhonchi of bilateral lower lung savage with normal respiratory effort. CARDIAC: Tachycardic rate, normal rhythm. Extremities warm and well perfused. Pulses equal. ABDOMEN: Soft, non-distended. No tenderness to palpation. No rebound or guarding. No masses. MUSCULOSKELETAL: Chest examination reveals no tenderness. The back is symmetrical on inspection without obvious abnormality. There is no CVA tenderness to palpation. No joint edema. LOWER EXTREMITIES: Calves are equal size bilaterally and non-tender. Chronic non-pitting lymphedema. No discoloration. NEURO: Normal sensorium. No sensory or motor deficits noted. SKIN: No rash or jaundice noted. Kamari Quintana MD Past Med/Surg History Problem List (Updated 10/31/23 @ 20:22 by Kamari Quintana MD) Leukocytosis (Acute) Hypoxia (Acute) Pneumonia (Acute) Hip pain Lymphedema Hyponatremia (Acute) COVID-19 (Acute) Current use of proton pump inhibitor BPH with obstruction/lower urinary tract symptoms Erectile dysfunction Venous insufficiency (chronic) (peripheral) (Acute) Type 2 diabetes mellitus (Acute) Schizophrenia (Acute 05/20/12) Osteoarthritis of knee (Acute) Nocturia more than twice per night (Acute) Lymphedema of lower extremity (Acute) left Lumbosacral radiculopathy at L5 (Acute) 1st degree AV block History of colon polyps Osteoarthritis of right hip Schizoaffective disorder S/P total hip arthroplasty Cataract Hyperlipidemia Hypothyroidism (05/20/12) Hypertension GERD (gastroesophageal reflux disease) CKD (chronic kidney disease) Stage 2 Bipolar 1 disorder Asthma used rescue inhaler "recently" Medical History Hx of basal cell carcinoma Encounter for pre-operative examination History of blood transfusion after left TKA Psychogenic polydipsia LOW (dyspnea on exertion) Diabetes mellitus, type 2 NIDDM BPH (benign prostatic hyperplasia) Right bundle branch block with left anterior fascicular block Bifascicular block - had ECHO 09/20/21 Follows with PCP Urinary incontinence Hearing deficit Sleep apnea NO DEVICE Schizoaffective disorder, bipolar type Surgical History History of right cataract extraction Left eye also done History of hip replacement R hip 11/2021 [place] teeth extracted History of total knee replacement LEFT History of esophagogastroduodenoscopy (EGD) History of colonoscopy History of tonsillectomy Family History Unknown Hypertension Mother Hypertension Sister Diabetes Other No family history of adverse response to anesthesia Denies family history of Ovarian cancer Prostate cancer Myocardial infarction Breast cancer Colorectal cancer Social History Smoking Status: Unknown if ever smoked Second Hand Exposure: No; Do You Dip or Chew Tobacco: No; Hx Alcohol Use: No Hx Substance Use: No Preferred Language: Wolof Communication Ability: Effective Visual Impairment: No Limitations Hearing Ability: Normal Reading Intervention Teacher Required: No Beliefs That Will Affect Care: None marital status: Single Current Living Situation: Alone Current Living Situation Comment: HAS [employer] 35 HOURS PER WEEK current occupational status: unemployed How many Children do You have: 0 Feels Safe at Home: Yes Seatbelt Use: always Assistive Devices: Walker Allergies Allergies Allergy/AdvReac Type Severity Reaction Status Date / Time No Known Allergies Allergy Verified 10/31/23 16:59 Home Meds Home Medications Medication Instructions Recorded Confirmed buspirone 30 mg tablet 30 mg PO QAM 01/26/18 10/31/23 ziprasidone HCl 80 mg capsule 80 mg PO BID 01/26/18 10/31/23 divalproex 500 mg tablet,delayed See Rx Instructions .Route .COMPLEX 05/27/19 10/31/23 release ziprasidone HCl 40 mg capsule 40 mg PO BID 05/27/19 10/31/23 perphenazine 8 mg tablet 8 mg PO BID 06/04/20 10/31/23 bupropion HCl 150 mg tablet,12 hr 150 mg PO QAM 09/13/20 10/31/23 sustained-release acetaminophen 650 mg 650 - 1,300 mg PO DIRECTED PRN 09/19/21 10/31/23 tablet,extended release (Tylenol 8 Pain Hour) clonazepam 1 mg tablet 1 mg PO BID 02/08/22 10/31/23 finasteride 5 mg tablet 5 mg PO DAILY 09/10/23 10/31/23 omeprazole 20 mg capsule,delayed 20 mg PO QAM 09/10/23 10/31/23 release pravastatin 20 mg tablet 20 mg PO HS 09/10/23 10/31/23 Previous Rx's Medication Instructions Recorded incontinence pad, liner, disp #180 ea 06/11/19 blood-glucose meter (OneTouch #1 ea 07/06/19 UltraMini kit) famotidine 20 mg tablet 20 mg PO BID #180 tabs 08/22/22 lisinopril 10 mg tablet 10 mg PO QAM #90 tabs 10/24/22 montelukast 10 mg tablet 10 mg PO PM #90 tabs 01/01/23 fluticasone 250 mcg-salmeterol 50 1 inh inhalation BID #60 ea 06/20/23 mcg/dose blistr powdr for inhalation polyethylene glycol 3350 17 17 g PO BID PRN Constipation #238 06/28/23 gram/dose oral powder grams lancets 33 gauge #100 ea 07/02/23 albuterol sulfate 90 mcg/actuation 2 puff inhalation QID PRN 07/03/23 aerosol inhaler Shortness Of Breath #18 grams fluticasone propionate 50 1 - 2 spray intranasal DAILY PRN 07/03/23 mcg/actuation nasal Allergy Symptoms #16 grams spray,suspension (Allergy Relief (fluticasone)) blood sugar diagnostic (OneTouch #100 ea 07/11/23 Ultra Test strips) aspirin 81 mg tablet,delayed 81 mg PO QAM #90 tabs 07/19/23 release loratadine 10 mg tablet 10 mg PO QAM #90 tabs 07/31/23 metformin 500 mg tablet 500 mg PO BID #180 tabs 08/26/23 levothyroxine 50 mcg tablet 175 mcg (3.5 x 50 mcg) PO QAM #135 09/05/23 tabs meclizine 25 mg tablet 25 mg PO TID PRN dizziness #30 tabs 09/10/23 furosemide 20 mg tablet 20 mg PO DAILY PRN edema #30 tabs 10/16/23 potassium chloride 10 mEq 10 meq PO DAILY PRN with 10/16/23 capsule,extended release furosemide #30 caps sildenafil (pulm.hypertension) 20 See Rx Instructions .Route 10/21/23 mg tablet .COMPLEX #30 tabs Results & Data (ED) Vital Signs Vital Signs - 24 hr 10/31/23 14:59 10/31/23 14:59 10/31/23 14:59 Temperature 38.2 C H Temperature Source Oral Pulse Rate 107 H Pulse Rate [Finger] Pulse Rate from SpO2 Sensor Respiratory Rate 14 Respiratory Effort / Characteristics Non-Labored Spontaneous Non-Labored Spontaneous Respiratory Depth Normal Respiratory Pattern Regular Regular Blood Pressure 117/82 Blood Pressure [Right Arm] Blood Pressure Mean 93 Blood Pressure Mean [Right Arm] Blood Pressure Position [Right Arm] Pulse Oximetry 89 L 89 L Oxygen Delivery Method Room Air Room Air Oxygen Flow Rate 0 Sepsis Recent Fever Within 48 Hours Yes Sepsis New/Unexplained Change in Mental Status N/A Sepsis Action Taken by Nursing Physician Notified Oxygen Flow Rate - Titration 3 Pulse Oximetry Post Tiitration 93 10/31/23 15:12 10/31/23 15:18 10/31/23 15:30 Temperature Temperature Source Pulse Rate 106 H 106 H Pulse Rate [Finger] Pulse Rate from SpO2 Sensor 106 H Respiratory Rate 13 Respiratory Effort / Characteristics Respiratory Depth Respiratory Pattern Blood Pressure Blood Pressure [Right Arm] Blood Pressure Mean Blood Pressure Mean [Right Arm] Blood Pressure Position [Right Arm] Pulse Oximetry 93 93 Oxygen Delivery Method Nasal Cannula Oxygen Flow Rate 3 Sepsis Recent Fever Within 48 Hours Sepsis New/Unexplained Change in Mental Status Sepsis Action Taken by Nursing Oxygen Flow Rate - Titration Pulse Oximetry Post Tiitration 10/31/23 15:54 10/31/23 16:03 10/31/23 16:27 Temperature Temperature Source Pulse Rate 105 H 108 H 103 H Pulse Rate [Finger] Pulse Rate from SpO2 Sensor 106 H 110 H 103 H Respiratory Rate 22 19 24 Respiratory Effort / Characteristics Respiratory Depth Respiratory Pattern Blood Pressure Blood Pressure [Right Arm] Blood Pressure Mean Blood Pressure Mean [Right Arm] Blood Pressure Position [Right Arm] Pulse Oximetry 92 94 97 Oxygen Delivery Method Oxygen Flow Rate Sepsis Recent Fever Within 48 Hours Sepsis New/Unexplained Change in Mental Status Sepsis Action Taken by Nursing Oxygen Flow Rate - Titration Pulse Oximetry Post Tiitration 10/31/23 16:30 10/31/23 16:45 10/31/23 17:09 Temperature Temperature Source Pulse Rate 100 H 105 H 104 H Pulse Rate [Finger] Pulse Rate from SpO2 Sensor 100 H 104 H Respiratory Rate 23 17 18 Respiratory Effort / Characteristics Respiratory Depth Respiratory Pattern Blood Pressure Blood Pressure [Right Arm] Blood Pressure Mean Blood Pressure Mean [Right Arm] Blood Pressure Position [Right Arm] Pulse Oximetry 97 95 Oxygen Delivery Method Oxygen Flow Rate Sepsis Recent Fever Within 48 Hours Sepsis New/Unexplained Change in Mental Status Sepsis Action Taken by Nursing Oxygen Flow Rate - Titration Pulse Oximetry Post Tiitration 10/31/23 17:11 10/31/23 17:18 10/31/23 17:33 Temperature Temperature Source Pulse Rate 104 H 103 H Pulse Rate [Finger] 102 H Pulse Rate from SpO2 Sensor Respiratory Rate 18 26 H 16 Respiratory Effort / Characteristics Non-Labored Spontaneous Respiratory Depth Normal Respiratory Pattern Regular Blood Pressure Blood Pressure [Right Arm] 108/67 Blood Pressure Mean Blood Pressure Mean [Right Arm] 80 Blood Pressure Position [Right Arm] Sitting Pulse Oximetry 99 Oxygen Delivery Method Nebulizer Oxygen Flow Rate Sepsis Recent Fever Within 48 Hours Sepsis New/Unexplained Change in Mental Status Sepsis Action Taken by Nursing Oxygen Flow Rate - Titration Pulse Oximetry Post Tiitration 10/31/23 17:42 Temperature Temperature Source Pulse Rate 102 H Pulse Rate [Finger] Pulse Rate from SpO2 Sensor Respiratory Rate 11 L Respiratory Effort / Characteristics Respiratory Depth Respiratory Pattern Blood Pressure Blood Pressure [Right Arm] Blood Pressure Mean Blood Pressure Mean [Right Arm] Blood Pressure Position [Right Arm] Pulse Oximetry Oxygen Delivery Method Oxygen Flow Rate Sepsis Recent Fever Within 48 Hours Sepsis New/Unexplained Change in Mental Status Sepsis Action Taken by Nursing Oxygen Flow Rate - Titration Pulse Oximetry Post Tiitration Laboratory Data Attestation: I reviewed the patient's lab results. 10/31/23 15:17 10/31/23 15:17 Lab Results 10/31/23 10/31/23 Range/Units 15:17 16:16 WBC 14.95 H (4.8-10.8) K/ul RBC 5.42 (4.70-6.10) M/uL Hgb 14.6 (14.0-18.0) g/dl Hct 42.9 (42.0-52.0) % MCV 79.2 L (80.0-100.0) fL MCH 26.9 (25.0-34.0) pg MCHC 34.0 (32.0-36.0) g/dL RDW Std Deviation 41.5 (36.4-46.3) fL RDW Coeff of Joey 14.4 (11.5-14.5) % Plt Count 249 (130-400) K/uL MPV 9.0 L (9.4-12.4) fL Immature Gran % (Auto) 0.3 % Neut % (Auto) 92.6 % Lymph % (Auto) 2.7 % [place] % (Auto) 4.2 % Eos % (Auto) 0.1 % Baso % (Auto) 0.1 % Neut # (Auto) 13.84 H (1.40-6.50) K/uL Lymph # (Auto) 0.40 L (1.20-3.40) K/uL [place] # (Auto) 0.63 H (0.11-0.59) K/uL Eos # (Auto) 0.01 (0.00-0.50) K/uL Baso # (Auto) 0.02 (0.00-0.20) K/uL Immature Gran # (Auto) 0.05 (0.01-0.20) K/uL Toxic Vacuolation 1+ PT 10.8 (9.0-12.0) Seconds INR 1.0 (0.9-1.1) Sodium 131 L (136-145) mmol/L Potassium 3.8 (3.5-5.1) mmol/L Chloride 100 (98-107) mmol/L Carbon Dioxide 23 (21-32) mmol/L Anion Gap 8 (3-11) BUN 12 (6-23) mg/dl Creatinine 0.88 (0.6-1.4) mg/dl Est Cr Clr Drug Dosing 94.9 ml/min Est GFR ( Amer) 104.5 ml/min Est GFR (Non-Af Amer) 90.1 ml/min BUN/Creatinine Ratio 13.6 (10-20) Glucose 110 H (70-99(Fasting)) mg/dl Lactate 2.0 (0.4-2.0) mmol/L Calcium 9.5 (8.6-10.3) mg/dl Magnesium 1.5 L (1.7-2.4) mg/dl Total Bilirubin 0.5 (0.2-1.0) mg/dl Direct Bilirubin 0.2 (0-0.2) mg/dl AST 21 (13-39) U/L ALT 16 (7-52) U/L Alkaline Phosphatase 70 (34-104) U/L Troponin I High Sens 5.4 (0-20) pg/ml B-Natriuretic Peptide 67 (0-100) pg/ml Total Protein 5.9 L (6.0-8.3) gm/dl Albumin 3.8 (3.4-5.0) gm/dl Lipase 39 (11-82) U/L Procalcitonin 0.82 H (0-0.5) ng/ml Urine Color Yellow Urine Appearance Clear (Clear) Urine pH 8.5 H (4.5-7.5) Ur Specific [place] 1.008 (1.000-1.030) Urine Protein Negative (Negative) Urine Glucose (UA) Negative (Negative) Urine Ketones Negative (Negative) Urine Blood Negative (Negative) Urine Nitrite Negative (Negative) Urine Bilirubin Negative (Negative) Urine Urobilinogen Negative (Negative) Ur Leukocyte Esterase Negative (Negative) Nasal Screen MRSA (PCR) Negative (Negative) Valproic Acid 79 (50-100) mcg/ml Adenovirus (PCR) Not Detected (NotDetected) B. pertussis DNA (PCR) Not Detected (NotDetected) B.parapertussis DNA PCR Not Detected (NotDetected) C. pneumoniae DNA (PCR) Not Detected (NotDetected) Coronavirus OC43 (PCR) Not Detected (NotDetected) Coronavirus HKU1 (PCR) Not Detected (NotDetected) Coronavirus 229E (PCR) Not Detected (NotDetected) SARS-CoV-2 (PCR) Not Detected (NotDetected) Coronavirus NL63 (PCR) Not Detected (NotDetected) Human Metapneumovir PCR Not Detected (NotDetected) Influenza Type A (PCR) Not Detected (NotDetected) Influenza Type B (PCR) Not Detected (NotDetected) M. pneumoniae (PCR) Not Detected (NotDetected) Parainfluenza 1 (PCR) Not Detected (NotDetected) Parainfluenza 2 (PCR) Not Detected (NotDetected) Parainfluenza 3 (PCR) Not Detected (NotDetected) Parainfluenza 4 (PCR) Not Detected (NotDetected) RSV (PCR) Not Detected (NotDetected) Entero/Rhino (PCR) Not Detected (NotDetected) Administered Medications Discontinued Medications Albuterol (Albut/Ipratrop 3mg/0.5mg Neb 3 Ml Vial) 3 ml NEB NOW STA; Protocol Stop: 10/31/23 16:42 Last Admin: 10/31/23 17:00 Dose: 3 ml Documented By: JAYME Guaifenesin (Guaifenesin 600 Mg Tabcr) 1,200 mg PO NOW STA Stop: 10/31/23 16:42 Last Admin: 10/31/23 16:59 Dose: 1,200 mg Documented By: JAYME Sodium Chloride (Nss) 500 mls @ 999 mls/hr IV .Q31M GLORIA Stop: 10/31/23 15:45 Last Infusion: 10/31/23 16:59 Dose: Infused Documented By: Admin: 10/31/23 15:38 Dose: 999 mls/hr Documented By: ANABELLA Acetaminophen (Ofirmev) 1,000 mg in 100 mls @ 400 mls/hr IV NOW STA Stop: 10/31/23 15:26 Last Infusion: 10/31/23 16:59 Dose: Infused Documented By: Admin: 10/31/23 15:38 Dose: 400 mls/hr Documented By: ANABELLA Famotidine (Pepcid 20mg Iv Push) 20 mg in 5 mls @ 2.5 mls/min IV NOW STA Stop: 10/31/23 15:15 Last Admin: 10/31/23 15:38 Dose: 2.5 mls/min Documented By: ANABELLA Sodium Chloride (Nss) 1,000 mls @ 999 mls/hr IV .Q1H1M ONE Stop: 10/31/23 16:47 Last Infusion: 10/31/23 17:12 Dose: Infused Documented By: Admin: 10/31/23 16:14 Dose: 999 mls/hr Documented By: ANABELLA Ceftriaxone Sodium (Rocephin) 2,000 mg in 50 mls @ 100 mls/hr IV NOW STA Stop: 10/31/23 16:16 Last Infusion: 10/31/23 17:12 Dose: Infused Documented By: Admin: 10/31/23 16:41 Dose: 100 mls/hr Documented By: MARIBETH Sodium Chloride (Nss) 1,000 mls @ 999 mls/hr IV .Q1H1M ONE Stop: 10/31/23 17:41 Last Admin: 10/31/23 17:04 Dose: 999 mls/hr Documented By: JAYME Magnesium Sulfate/Dextrose (Magnesium Sulfate / D5w) 1 gm in 100 mls @ 100 mls/hr IV NOW STA Stop: 10/31/23 17:42 Last Infusion: 10/31/23 17:59 Dose: Infused Documented By: Admin: 10/31/23 16:59 Dose: 100 mls/hr Documented By: JAYME Doxycycline Hyclate 100 mg/ (Dextrose) 100 mls @ 50 mls/hr IV NOW STA Stop: 10/31/23 19:36 Last Admin: 10/31/23 18:12 Dose: 50 mls/hr Documented By: ANABELLA Magnesium Sulfate/Dextrose (Magnesium Sulfate / D5w) 1 gm in 100 mls @ 50 mls/hr IV ONE ONE Stop: 10/31/23 19:52 Last Admin: 10/31/23 18:13 Dose: 50 mls/hr Documented By: ANABELLA Methylprednisolone (Methylprednisolone 125 Mg/2 Ml Vial) 60 mg IV NOW STA Stop: 10/31/23 16:42 Last Admin: 10/31/23 17:00 Dose: 60 mg Documented By: JAYME Ondansetron HCl (Ondansetron Inj 2 Mg/Ml 2 Ml Vial) 4 mg IV NOW STA Stop: 10/31/23 15:15 Last Admin: 10/31/23 15:37 Dose: 4 mg Documented By: ANABELLA Imaging Data Radiologist's Impression: Chest X-Ray 10/31/23 15:12 XR chest 1V portable CLINICAL HISTORY: Sepsis TECHNIQUE: Single frontal radiograph of the chest was obtained. Comparison: Comparison is made to chest radiograph 09/10/2023 FINDINGS: No lines and tubes are seen. The cardiomediastinal silhouette is normal. The lungs are clear. No evidence of pleural effusion or pneumothorax. IMPRESSION: No acute abnormalities and in particular no radiographic evidence of pneumonia. ACT 112: Negative or not required by law. Electronically signed by: Az Borjas M.D. 10/31/2023 4:27 PM Discharge Plan Visit Data Chief Complaint: Shortness of Breath/Dyspnea Stated Complaint: SOB,FEVER ED Provider: Kamari Quinatna Discharge Problem: Pneumonia, Hypoxia, Leukocytosis Discharge Instructions Interventions: ED Discharge Assessment Last Done: 10/31/23 20:04 Discharge Problem: Pneumonia Qualifiers: Pneumonia type: due to unspecified organism Laterality: right Lung location: m iddle lobe of lung Qualified Code(s): J18.9 - Pneumonia, unspecified organism Leukocytosis Qualifiers: Leukocytosis type: unspecified Qualified Code(s): D72.829 - Elevated white blood cell count, unspecified
[2023-10-31] MEDS: ONDANSETRON INJ 2 MG/ML 2 ML VIAL IV STA (15:37)
[2023-10-31] MEDS: SODIUM CHLORIDE 0.9% 500 ML IV SCH (15:38)
[2023-10-31] MEDS: ACETAMINOPHEN 1,000 MG/100 ML VIAL IV STA (15:38)
[2023-10-31] MEDS: FAMOTIDINE 20MG IV PUSH 20 MG/5 ML SYR IV STA (15:38)
[2023-10-31 15:45] LABS: Hematocrit (blood only) 42.9 % (42.0-52.0); Hemoglobin 14.6 g/dl (14.0-18.0); Mean Corpuscular Hemoglobin 26.9 pg (25.0-34.0); Mean Corpuscular Volume 79.2 fL (80.0-100.0); Platelet Count 249 K/uL (130-400); RDW Coefficient of Variation 14.4 % (11.5-14.5); RDW Standard Deviation 41.5 fL (36.4-46.3); Red Blood Count 5.42 M/uL (4.70-6.10); White Blood Count 14.95 K/ul (4.8-10.8)
[2023-10-31 16:01] LABS: Basophils # (auto) 0.02 K/uL (0.00-0.20); Basophils % (auto) 0.1 %; Eosinophils # (auto) 0.01 K/uL (0.00-0.50); Eosinophils % (auto) 0.1 %; Immature Granulocytes # (auto) 0.05 K/uL (0.01-0.20); Immature Granulocytes % (auto) 0.3 %; Lymphocytes % (auto) 2.7 %; Monocytes # (auto) 0.63 K/uL (0.11-0.59); Monocytes % (auto) 4.2 %; Neutrophils # (auto) 13.84 K/uL (1.40-6.50); Neutrophils % (auto) 92.6 %; Toxic Vacuolation 1+
[2023-10-31 16:02] LABS: Albumin Level 3.8 gm/dl (3.4-5.0); BUN Creatinine Ratio 13.6 (10-20); Bilirubin Direct 0.2 mg/dl (0-0.2); Bilirubin,Total 0.5 mg/dl (0.2-1.0); Calcium 9.5 mg/dl (8.6-10.3); Creatinine Clr Calc Pharmacy 94.9 ml/min; Est GFR (African American) 104.5 ml/min; Est GFR (Non-African American) 90.1 ml/min; Magnesium 1.5 mg/dl (1.7-2.4); Potassium 3.8 mmol/L (3.5-5.1); Total Protein 5.9 gm/dl (6.0-8.3)
[2023-10-31 16:07] LABS: Troponin I High Sensitivity 5.4 pg/ml (0-20)
[2023-10-31] MEDS: SODIUM CHLORIDE 0.9% 1,000 ML IV ONE ×2 (16:14→17:04)
[2023-10-31 16:19] LABS: Prothrombin Time 10.8 Seconds (9.0-12.0)
[2023-10-31 16:27] LABS: Appearance Urine Clear (Clear); Bilirubin Urine Negative (Negative); Blood Urine Negative (Negative); Color Urine Yellow; Glucose Urine UA Negative (Negative); Ketones Urine Negative (Negative); Leukocyte Esterase Urine Negative (Negative); Nitrite Urine Negative (Negative); Protein Urine Negative (Negative); Specific Gravity Urine 1.008 (1.000-1.030); Urobilinogen Urine Negative (Negative); pH Urine 8.5 (4.5-7.5)
--- NOTE | 2023-10-31 16:28 | XRay Report ---
XR chest 1V portable CLINICAL HISTORY: Sepsis TECHNIQUE: Single frontal radiograph of the chest was obtained. Comparison: Comparison is made to chest radiograph 09/10/2023 FINDINGS: No lines and tubes are seen. The cardiomediastinal silhouette is normal. The lungs are clear. No evid ence of pleural effusion or pneumothorax. IMPRESSION: No acute abnormalities and in particular no radiographic evidence of pneumonia. ACT 112: Negative or not required by law. Electronically signed by: Az Borjas M.D. 10/31/2023 4:27 PM
[2023-10-31 16:30] LABS: Adenovirus PCR Not Detected (NotDetected); Bordetella parapertussis PCR Not Detected (NotDetected); Bordetella pertussis PCR Not Detected (NotDetected); Chlamydia pneumoniae PCR Not Detected (NotDetected); Coronavirus 229E PCR Not Detected (NotDetected); Coronavirus CoV-2 (COVID19)PCR Not Detected (NotDetected); Coronavirus HKU1 PCR Not Detected (NotDetected); Coronavirus NL63 PCR Not Detected (NotDetected); Coronavirus OC43PCR Not Detected (NotDetected); Human Metapneumovirus PCR Not Detected (NotDetected); Influenza A PCR Not Detected (NotDetected); Influenza B PCR Not Detected (NotDetected); Mycoplasma pneumoniae PCR Not Detected (NotDetected); Parainfluenza Virus 1 PCR Not Detected (NotDetected); Parainfluenza Virus 2 PCR Not Detected (NotDetected); Parainfluenza Virus 3 PCR Not Detected (NotDetected); Parainfluenza Virus 4 PCR Not Detected (NotDetected); Respiratory Syncytial VirusPCR Not Detected (NotDetected); Rhinovirus/Enterovirus PCR Not Detected (NotDetected)
[2023-10-31] MEDS: cefTRIAXone SODIUM 2,000 MG/50 ML BAG IV STA (16:41)
[2023-10-31] MEDS: MAGNESIUM SULFATE / D5W 1 GM/100 ML BAG IV STA (16:59)
[2023-10-31] MEDS: guaiFENesin 600 MG TABCR PO STA (16:59)
[2023-10-31] MEDS: methylPREDNISolone 125 MG/2 ML VIAL IV STA (17:00)
[2023-10-31] MEDS: ALBUT/IPRATROP 3MG/0.5MG NEB 3 ML VIAL NEB STA (17:00)
--- NOTE | 2023-10-31 17:13 | History & Physical Report ---
Date of Service October 31, 2023 Assessment & Plan (1) Pneumonia: Plan: Leukocytosis at 14.95 with neutrophil predominance Elevated procalcitonin 0.88 BioFire negative Febrile at 38.2 C on arrival CXR with potential PNA on right side; will cover for pulmonary source Acetaminophen as needed for pain/fever Rocephin 2000 mg IV q24h Doxycycline 100 mg IV q12h to cover for atypicals DuoNeb 3 mL Q6R Incentive telemetry, flutter valve A.m. CBC, BMP, mag (2) Hypoxia: Plan: Patient's SpO2 was 89% on RA on arrival He is not on supplemental oxygen at baseline Continuous pulse oximetry Supplemental oxygen as needed to maintain SpO2 >94% (3) Hypomagnesemia: Plan: Mag 1.5 on arrival Magnesium sulfate 1 g IV x 2 Recheck a.m. mag (4) Type 2 diabetes mellitus: Plan: Last A1c at 5.9% on 05/15/2023 Hold metformin SSI; with target BSG range 110-140mg/dL, CF 50, carb ratio 15 T2DM diet BSG ACHS Adjust regimen as needed AM A1c (5) Schizophrenia: Plan: Continue perphenazine or formulary equivalent Continue home medications (6) Leg edema: Plan: Lasix 40 mg p.o. daily Potassium supplementation 20mEq p.o. daily (7) 1st degree AV block: (8) Hypothyroidism: (9) CKD (chronic kidney disease): (10) Bipolar 1 disorder: (11) Asthma: Plan [facility] Full code T2DM diet VTE PPx: Lovenox 40 mg SQ q24h History of Present Illness Chief Complaint: SOB/Dyspnea Primary Care Provider: Yohannes Carrillo MD Lam is a 63-year-old male with PMH of bipolar 1 disorder, asthma, GERD, CKD, hypothyroidism, HTN, hyperlipidemia, schizoaffective disorder, first-degree AV block, T2DM, BPH, and schizophrenia. He presented via EMS for worsening SOB that began the evening of 10/29. Patient reports that he was lying in bed last night when he developed SOB at rest. Worse lying flat on back. He then developed a fever last night, but did not take his temperature or tried taking Tylenol. He woke up this morning with pleuritic chest pain, gradually increased oxygen demands. He does not use supplemental oxygen at home. No sick contacts. No PMH of DVT/PE. Patient was placed on 4 L NC via EMS. Associated symptoms include dry cough. Patient is unsure if he took his regular morning medicine today, but reports good compliance with managing his medicine at home. No recent change in medications. Patient denies smoking, tobacco use, and recent alcohol use. He is tachycardic at 102 bpm; febrile at 38.2 C, and SpO2 is 93% on RA at time of admission. ED course: Methylprednisolone 60 mg IV Guaifenesin 1200 mg p.o. Rocephin 2000 mg IV Pepcid 20 mg IV Acetaminophen 1000 mg IV NSS 1000 mL IV Zofran 4 mg IV DuoNeb 3 mL ROS: Patient endorses fever, chills, night-sweats, dizziness/lightheadedness with walking, SOB at rest, dry cough, and intermittent left foot neuropathy (chronic). Patient denies MIR, chest pain, chest palpitations, pain/pressure in the left shouler/neck/arm, wheezing, abdominal pain, N/V/D, burning with urination, or dysuria. Allergies Allergy/AdvReac Type Severity Reaction Status Date / Time No Known Allergies Allergy Verified 10/31/23 16:59 Home Medications Medication Instructions Recorded Confirmed Type buspirone 30 mg tablet 30 mg PO QAM 01/26/18 10/31/23 History ziprasidone HCl 80 mg capsule 80 mg PO BID 01/26/18 10/31/23 History divalproex 500 mg tablet,delayed See Rx Instructions .Route .COMPLEX 05/27/19 10/31/23 History release ziprasidone HCl 40 mg capsule 40 mg PO BID 05/27/19 10/31/23 History incontinence pad, liner, disp #180 ea 06/11/19 07/31/23 Rx blood-glucose meter (OneTouch #1 ea 07/06/19 07/31/23 Rx UltraMini kit) perphenazine 8 mg tablet 8 mg PO BID 06/04/20 10/31/23 History bupropion HCl 150 mg tablet,12 hr 150 mg PO QAM 09/13/20 10/31/23 History sustained-release acetaminophen 650 mg 650 - 1,300 mg PO DIRECTED PRN 09/19/21 10/31/23 History tablet,extended release (Tylenol 8 Pain Hour) clonazepam 1 mg tablet 1 mg PO BID 02/08/22 10/31/23 History famotidine 20 mg tablet 20 mg PO BID #180 tabs 08/22/22 10/31/23 Rx lisinopril 10 mg tablet 10 mg PO QAM #90 tabs 10/24/22 10/31/23 Rx montelukast 10 mg tablet 10 mg PO PM #90 tabs 01/01/23 10/31/23 Rx fluticasone 250 mcg-salmeterol 50 1 inh inhalation BID #60 ea 06/20/23 10/31/23 Rx mcg/dose blistr powdr for inhalation polyethylene glycol 3350 17 17 g PO BID PRN Constipation #238 06/28/23 10/31/23 Rx gram/dose oral powder grams lancets 33 gauge #100 ea 07/02/23 07/31/23 Rx albuterol sulfate 90 mcg/actuation 2 puff inhalation QID PRN 07/03/23 10/31/23 Rx aerosol inhaler Shortness Of Breath #18 grams fluticasone propionate 50 1 - 2 spray intranasal DAILY PRN 07/03/23 10/31/23 Rx mcg/actuation nasal Allergy Symptoms #16 grams spray,suspension (Allergy Relief (fluticasone)) blood sugar diagnostic (OneTouch #100 ea 07/11/23 07/31/23 Rx Ultra Test strips) aspirin 81 mg tablet,delayed 81 mg PO QAM #90 tabs 07/19/23 10/31/23 Rx release loratadine 10 mg tablet 10 mg PO QAM #90 tabs 07/31/23 10/31/23 Rx metformin 500 mg tablet 500 mg PO BID #180 tabs 08/26/23 10/31/23 Rx levothyroxine 50 mcg tablet 175 mcg (3.5 x 50 mcg) PO QAM #135 09/05/23 10/31/23 Rx tabs finasteride 5 mg tablet 5 mg PO DAILY 09/10/23 10/31/23 History meclizine 25 mg tablet 25 mg PO TID PRN dizziness #30 tabs 09/10/23 10/31/23 Rx omeprazole 20 mg capsule,delayed 20 mg PO QAM 09/10/23 10/31/23 History release pravastatin 20 mg tablet 20 mg PO HS 09/10/23 10/31/23 History furosemide 20 mg tablet 20 mg PO DAILY PRN edema #30 tabs 10/16/23 10/31/23 Rx potassium chloride 10 mEq 10 meq PO DAILY PRN with 10/16/23 10/31/23 Rx capsule,extended release furosemide #30 caps sildenafil (pulm.hypertension) 20 See Rx Instructions .Route 10/21/23 10/31/23 Rx mg tablet .COMPLEX #30 tabs Past Med/Surg History Problem List (Updated 10/31/23 @ 20:22 by Kamari Quintana MD) Leukocytosis (Acute) Hypoxia (Acute) Pneumonia (Acute) Hip pain Lymphedema Hyponatremia (Acute) COVID-19 (Acute) Current use of proton pump inhibitor BPH with obstruction/lower urinary tract symptoms Erectile dysfunction Venous insufficiency (chronic) (peripheral) (Acute) Type 2 diabetes mellitus (Acute) Schizophrenia (Acute 05/20/12) Osteoarthritis of knee (Acute) Nocturia more than twice per night (Acute) Lymphedema of lower extremity (Acute) left Lumbosacral radiculopathy at L5 (Acute) 1st degree AV block History of colon polyps Osteoarthritis of right hip Schizoaffective disorder S/P total hip arthroplasty Cataract Hyperlipidemia Hypothyroidism (05/20/12) Hypertension GERD (gastroesophageal reflux disease) CKD (chronic kidney disease) Stage 2 Bipolar 1 disorder Asthma used rescue inhaler "recently" Medical History Hx of basal cell carcinoma Encounter for pre-operative examination History of blood transfusion after left TKA Psychogenic polydipsia LOW (dyspnea on exertion) Diabetes mellitus, type 2 NIDDM BPH (benign prostatic hyperplasia) Right bundle branch block with left anterior fascicular block Bifascicular block - had ECHO 09/20/21 Follows with PCP Urinary incontinence Hearing deficit Sleep apnea NO DEVICE Schizoaffective disorder, bipolar type Surgical History History of right cataract extraction Left eye also done History of hip replacement R hip 11/2021 [place] teeth extracted History of total knee replacement LEFT History of esophagogastroduodenoscopy (EGD) History of colonoscopy History of tonsillectomy Family History Unknown Hypertension Mother Hypertension Sister Diabetes Other No family history of adverse response to anesthesia Denies family history of Ovarian cancer Prostate cancer Myocardial infarction Breast cancer Colorectal cancer Social History Smoking Status: Unknown if ever smoked Second Hand Exposure: No; Do You Dip or Chew Tobacco: No; Hx Alcohol Use: No Hx Substance Use: No Preferred Language: Martiniquais Communication Ability: Effective Visual Impairment: No Limitations Hearing Ability: Normal 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 Beliefs That Will Affect Care: None marital status: Single Current Living Situation: Alone Current Living Situation Comment: HAS [employer] 35 HOURS PER WEEK current occupational status: unemployed How many Children do You have: 0 Feels Safe at Home: Yes Seatbelt Use: always Assistive Devices: Walker Review of Systems Review of Systems: See HPI above Physical Exam Physical Exam: General: Mild respiratory distress; pleasant affect; non-toxic appearing; well- nourished; cooperative; SpO2 92% on RA HEENT: normocephalic, atraumatic; no scleral icterus; PERRLA w/ EOMs intact; moist mucus membrane; vision and hearing grossly intact Neck: supple; no lymphadenopathy; trachea midline Skin: Skin is warm to touch; without signs of tenting; no cyanosis; no rashes, bruising, lesions, or erythema noted CV: chest wall NTP; RR, tachycardic around 100 bpm; S1/S2 normal; no murmurs/rubs/gallops; pulses intact and symmetric at radial, DP, and PT Lungs: Mild respiratory distress; symmetrical chest wall expansion; bibasilar crackles in the lower lung savage bilaterally; expiratory wheezing ABD: Soft, NTP; BS present; no rebound/guarding; no distention MSK: no tics or fasciculations; nonpitting edema in the lower extremities bilaterally, worse on the left (however patient reports it is usually more swollen than left), nonerythematous Neuro: A&Ox3; normal mood and affect; fluent speech; no focal deficits; sensation grossly intact in the LEs b/l Results & Data Results & Data Vital Signs (Past 12 Hours) Vital Signs Temp Pulse Pulse Resp BP BP Pulse Ox 10/31/23 17:11 102 H 18 108/67 99 10/31/23 15:18 106 H 10/31/23 15:12 93 10/31/23 14:59 89 L 10/31/23 14:59 38.2 C H 107 H 14 117/82 89 L O2 Del Method O2 Flow Rate 10/31/23 17:11 Nebulizer 10/31/23 15:18 10/31/23 15:12 Nasal Cannula 3 10/31/23 14:59 Room Air 0 10/31/23 14:59 Room Air Laboratory Results Abnormal lab results 10/31/23 10/31/23 Range/Units 15:17 16:16 WBC 14.95 H (4.8-10.8) K/ul MCV 79.2 L (80.0-100.0) fL MPV 9.0 L (9.4-12.4) fL Neut # (Auto) 13.84 H (1.40-6.50) K/uL Lymph # (Auto) 0.40 L (1.20-3.40) K/uL [place] # (Auto) 0.63 H (0.11-0.59) K/uL Sodium 131 L (136-145) mmol/L Glucose 110 H (70-99(Fasting)) mg/dl Magnesium 1.5 L (1.7-2.4) mg/dl Total Protein 5.9 L (6.0-8.3) gm/dl Procalcitonin 0.82 H (0-0.5) ng/ml Urine pH 8.5 H (4.5-7.5) Diagnostic Findings Chest X-Ray 10/31/23 15:12 XR chest 1V portable CLINICAL HISTORY: Sepsis TECHNIQUE: Single frontal radiograph of the chest was obtained. Comparison: Comparison is made to chest radiograph 09/10/2023 FINDINGS: No lines and tubes are seen. The cardiomediastinal silhouette is normal. The lungs are clear. No evidence of pleural effusion or pneumothorax. IMPRESSION: No acute abnormalities and in particular no radiographic evidence of pneumonia. ACT 112: Negative or not required by law. Electronically signed by: Az Borjas M.D. 10/31/2023 4:27 PM ECG Additional Comments: ECG revealed sinus tachycardia with first-degree AV block; QTc 466; RBBB Code Status & VTE Plan VTE Prophylaxis Plan VTE Prophylaxis will be ordered: Yes Supervising Physician Co-Signing Physician Notes Patient seen and examined, chart reviewed, case discussed with Errol Martin PA-C and I agree with the assessment and plan as above except as otherwise noted Labs and images reviewed 63-year-old male admitted with shortness of breath and dyspnea, feeling of fever at home. Does not have a home oxygen requirement, is on 2 L on ER assessment. Febrile to 38 while in the ER with tachycardia. He has a leukocytosis of 14 with neutrophilic predominance. Procalcitonin is mildly elevated, viral bio fire is negative. Chest x-ray is without overt evidence of lobar pneumonia, this is a single view portable. Agree with empiric treatment for pneumonia with Rocephin and doxycycline for atypical coverage. CTAB at bedside. At bedside reassessment patient reports he feels much better than when he came in, is hopeful that his oxygen can be weaned and is hopeful that he could be switched to orals and maybe go home as early as tomorrow if he continues to do well. No other questions or concerns at bedside assessment. Agree with plan as above, continue Rocephin/Doxy at this time PG Care Time/CCT Total # of Minutes Spent Total Time Spent with Patient: Total time spent is greater than 50% in coordination of care (as documented) at patient's floor/unit and/or counseling patient: C[place] [address] INT INP/OBS CARE 375MIN Patient Type Established History Comprehensive Exam Comprehensive Medical Decision Making High Complexity Diagnoses Pneumonia J18.1 Laterality: right Lung location: lower lobe of lung Pneumonia type: due to unspecified organism Hypoxia R09.02 Hypomagnesemia E83.42 Type 2 diabetes mellitus E11.9 Schizophrenia F20.9 Leg edema R60.0 1st degree AV block I44.0 Hypothyroidism E03.9 CKD (chronic kidney disease) N18.9 Bipolar 1 disorder F31.9 Asthma J45.909 (1) Pneumonia Laterality: right Lung location: lower lobe of lung Pneumonia type: due to unspecified organism Qualified Code(s): J18.1 - Lobar pneumonia, unspecified organism
[2023-10-31] MEDS: DOXYCYCLINE HYCLATE 100 MG in DEXTROSE 5% MINI-B 100 ML IV STA (18:12)
[2023-10-31] MEDS: MAGNESIUM SULFATE / D5W 1 GM/100 ML BAG IV ONE (18:13)
[2023-10-31] MEDS ORDERED: GLUCOSE 40% GEL 15 GM TUBE PO PRN (20:03)
[2023-10-31] MEDS ORDERED: CARBOHYDRATES FOR HYPOGLYCEMIA PO PRN (20:03)
[2023-10-31] MEDS ORDERED: GLUCAGON FOR INJ 1 MG VIAL SQ PRN (20:03)
[2023-10-31] MEDS ORDERED: ACETAMINOPHEN 325 MG TAB PO PRN (20:03)
[2023-10-31] MEDS ORDERED: FLUTICASONE PROPIONATE NA SPR 16 GM BTL PRN (20:03)
[2023-10-31] MEDS ORDERED: DEXTROSE 50% 50 ML SYRINGE IV PRN (20:03)
[2023-10-31] MEDS ORDERED: GLUCOSE 10 TAB/TUBE PO PRN (20:03)
[2023-10-31] MEDS ORDERED: POLYETHYLENE (MIRALAX) 17 GM PACK PO PRN (20:03)
[2023-10-31] MEDS ORDERED: ONDANSETRON INJ 2 MG/ML 2 ML VIAL IV PRN (20:03)
[2023-10-31] MEDS ORDERED: MECLIZINE HCL 25 MG TAB PO PRN (20:03)
[2023-10-31] MEDS: ALBUT/IPRATROP 3MG/0.5MG NEB 3 ML VIAL NEB SCH (20:22)
[2023-10-31] MEDS: FLUTICASONE/VILANTEROL 200/25MCG 14 PUFFS/INHALER INH SCH (20:57)
[2023-10-31] MEDS: FAMOTIDINE 20 MG TAB PO SCH (20:58)
[2023-10-31] MEDS: ziprasidone HCL 80 MG CAP PO SCH (20:59)
[2023-10-31] MEDS: MONTELUKAST SODIUM 10 MG TABLET PO SCH (21:01)
[2023-10-31] MEDS: PERPHENAZINE 4 MG TAB PO SCH (21:02)
[2023-10-31] MEDS: PRAVASTATIN SOD 20 MG TAB PO SCH (21:03)
[2023-10-31] MEDS: DIVALPROEX DELAY RELEASE 500 MG TAB PO SCH (21:04)
[2023-10-31] MEDS: ALBUT/IPRATROP 3MG/0.5MG NEB 3 ML VIAL ONE (21:16)
[2023-10-31] MEDS: ENOXAPARIN INJ 40 MG/0.4 ML SYR SQ SCH (21:47)
[2023-10-31] MEDS: clonazePAM 1 MG TAB PO SCH (21:47)
[2023-10-31] MEDS: INSULIN ASPART PER UNIT CHARGE SC SCH (21:51)
[2023-11-01] MEDS: LACTATED RINGER'S 1,000 ML IV SCH (01:40)
[2023-11-01 03:59] LABS: Hematocrit (blood only) 40.3 % (42.0-52.0); Hemoglobin 13.1 g/dl (14.0-18.0); Mean Corpuscular Hemoglobin 26.5 pg (25.0-34.0); Mean Corpuscular Hgb Conc 32.5 g/dL (32.0-36.0); Mean Corpuscular Volume 81.4 fL (80.0-100.0); Mean Platelet Volume 8.8 fL (9.4-12.4); Platelet Count 228 K/uL (130-400); RDW Coefficient of Variation 14.9 % (11.5-14.5); RDW Standard Deviation 43.3 fL (36.4-46.3); Red Blood Count 4.95 M/uL (4.70-6.10)
[2023-11-01 04:15] LABS: BUN Creatinine Ratio 12.2 (10-20); Calcium 8.1 mg/dl (8.6-10.3); Creatinine Clr Calc Pharmacy 101.9 ml/min; Est GFR (African American) 107.6 ml/min; Est GFR (Non-African American) 92.8 ml/min; Potassium 4.3 mmol/L (3.5-5.1)
[2023-11-01 04:22] LABS: Basophils # (auto) 0.02 K/uL (0.00-0.20); Basophils % (auto) 0.1 %; Echinocytes 2+; Immature Granulocytes # (auto) 0.09 K/uL (0.01-0.20); Immature Granulocytes % (auto) 0.5 %; Lymphocytes # (auto) 0.76 K/uL (1.20-3.40); Lymphocytes % (auto) 4.3 %; Monocytes # (auto) 0.31 K/uL (0.11-0.59); Monocytes % (auto) 1.8 %; Neutrophils # (auto) 16.52 K/uL (1.40-6.50); Neutrophils % (auto) 93.3 %
[2023-11-01] MEDS: LEVOTHYROXINE SODIUM 175 MCG TABLET PO SCH (06:29)
[2023-11-01] MEDS: DOXYCYCLINE HYCLATE 100 MG in DEXTROSE 5% MINI-B 100 ML IV SCH (06:30)
[2023-11-01 06:45] LABS: Estimated Average Glucose 117 mg/dl; Hemoglobin A1C 5.7 % (4.5-5.6)
--- NOTE | 2023-11-01 07:12 | Electrocardiogram Report ---
Test Reason : Blood Pressure : / mmHG Vent. Rate : 108 BPM Atrial Rate : 108 BPM P-R Int : 220 ms QRS Dur : 142 ms QT Int : 348 ms P-R-T Axes : 000 254 118 degrees QTc Int : 466 ms Sinus tachycardia with 1st degree A-V block Right bundle branch block Possible Septal infarct (cited on or before 31-OCT-2023) T wave abnormality, consider lateral ischemia Abnormal ECG When compared with ECG of 10-SEP-2023 19:03, No significant change Confirmed by Lucius Acosta ([id number]) on 11/01/2023 7:11:49 AM Referred By: REFERRED SELF Confirmed By:Lucius Acosta
[2023-11-01] MEDS: ASPIRIN 81 MG ECTAB PO SCH (08:31)
[2023-11-01] MEDS: buPROPion SR 150 MG TABCR PO SCH (08:32)
[2023-11-01] MEDS: busPIRone 15 MG TAB PO SCH (08:32)
[2023-11-01] MEDS: DIVALPROEX DELAY RELEASE 500 MG TAB PO SCH (08:33)
[2023-11-01] MEDS: LORATADINE 10 MG TAB PO SCH (08:34)
[2023-11-01] MEDS: FINASTERIDE 5 MG TAB PO SCH (08:34)
[2023-11-01] MEDS: PANTOprazole 40 MG TAB PO SCH (08:34)
[2023-11-01] MEDS: POTASSIUM CHLORIDE CRTAB 20 MEQ TABCR PO SCH (08:36)
[2023-11-01] MEDS ORDERED: FUROSEMIDE 40 MG TAB PO SCH (09:00)
[2023-11-01] MEDS ORDERED: lisinopril 10 MG TAB PO SCH (09:00)
--- NOTE | 2023-11-01 09:58 | Hospitalist Progress Note ---
Date of Service November 01, 2023 Assessment & Plan (1) Pneumonia: (2) Hypoxia: (3) Hypomagnesemia: (4) Type 2 diabetes mellitus: (5) Schizophrenia: (6) Leg edema: (7) 1st degree AV block: (8) Hypothyroidism: (9) CKD (chronic kidney disease): (10) Bipolar 1 disorder: (11) Asthma: Plan #CAP - Leukocytosis at 14.95 with neutrophil predominance - Elevated procalcitonin 0.88 - BioFire negative - Febrile at 38.2 C on arrival - CXR with potential PNA on right side; will cover for pulmonary source - Acetaminophen as needed for pain/fever - Rocephin 2000 mg IV q24h - Doxycycline 100 mg IV q12h to cover for atypicals - DuoNeb 3 mL Q6R - Incentive telemetry, flutter valve - A.m. CBC, BMP, mag #Acute Hypoxia: - Patient's SpO2 was 89% on RA on arrival - He is not on supplemental oxygen at baseline - Continuous pulse oximetry - Supplemental oxygen as needed to maintain SpO2 >94% - ambulatory pulse ox when stable - pt states that he is supposed to be on CPAP but he does not want to wear one. he also states that he has a sleep study coming up later in the year #Hypomagnesemia: - Mag 1.5 on arrival - replete and monitor #Type 2 diabetes mellitus: - Last A1c at 5.7% on 11/01/2023 - Hold metformin - SSI; with target BSG range 110-140mg/dL, CF 50, carb ratio 15 - T2DM diet - BSG ACHS - Adjust regimen as needed #Schizophrenia #Bipolar 1 disorder - Continue perphenazine or formulary equivalent - Continue home medications #Leg edema: - pt states that it is significantly improved compared to prior - Lasix 40 mg p.o. daily - Potassium supplementation 20mEq p.o. daily #1st degree AV block #Hypothyroidism: cont levothyroxine #CKD (chronic kidney disease): Cr stable #Asthma - cont fluticasone / vilanterol - cont montelukast - cont albuterol #HTN - cont lisinopril Disposition: pending clinical improvement Full code T2DM diet VTE PPx: Lovenox 40 mg SQ q24h Admission and Anticipated Discharge Date Admission Date: October 31, 2023 Subjective No acute events overnight pt currently stating that he feels better and would like to go home Review of Systems Review of Systems: Comprehensive ROS completed Physical Exam Physical Exam: Gen: no acute distress, sitting in bed comfortably HEENT: normocephalic / atraumatic, anicteric, moist mucous membranes CVS: s1s2 nl, RRR, no M/R/G Lungs: diminished breath sounds at the bases Abd: + bowel sounds, soft, nontender, nondistended, no rigidity / guarding / rebound Ext: + pedal edema b/l L > R Neuro: awake, alert Psych: non anxious Results & Data Results & Data Vital Signs (Past 12 Hours) Vital Signs Pulse Pulse Resp BP Pulse Ox Pulse Ox O2 Del Method 11/01/23 07:03 76 11/01/23 06:55 78 16 97 Nasal Cannula 11/01/23 06:31 79 13 113/72 98 Nasal Cannula 11/01/23 05:00 74 15 87/56 L 95 Nasal Cannula 11/01/23 04:30 75 18 92/53 L 91 Nasal Cannula 11/01/23 03:00 80 16 99/61 L 97 Nasal Cannula 11/01/23 01:12 84 25 H 88/56 L 95 Nasal Cannula 11/01/23 01:09 93 11/01/23 00:57 79 17 93 Nasal Cannula 11/01/23 00:45 79 22 94/58 L 94 Nasal Cannula 10/31/23 23:34 Nasal Cannula O2 Del Method O2 Flow Rate 11/01/23 07:03 11/01/23 06:55 3 11/01/23 06:31 3 11/01/23 05:00 3 11/01/23 04:30 3 11/01/23 03:00 3 11/01/23 01:12 3 11/01/23 01:09 Room Air 11/01/23 00:57 3 11/01/23 00:45 3 10/31/23 23:34 3 Laboratory Results Abnormal lab results 10/31/23 10/31/23 10/31/23 Range/Units 15:17 16:16 21:37 WBC (4.8-10.8) K/ul Hgb (14.0-18.0) g/dl Hct (42.0-52.0) % RDW Coeff of Joey (11.5-14.5) % MPV (9.4-12.4) fL Neut # (Auto) 13.84 H (1.40-6.50) K/uL Lymph # (Auto) 0.40 L (1.20-3.40) K/uL [place] # (Auto) 0.63 H (0.11-0.59) K/uL Sodium 131 L (136-145) mmol/L Glucose 110 H (70-99(Fasting)) mg/dl POC Glucose 126 H (70-99) mg/dl Hemoglobin A1c (4.5-5.6) % Calcium (8.6-10.3) mg/dl Magnesium 1.5 L (1.7-2.4) mg/dl Total Protein 5.9 L (6.0-8.3) gm/dl Procalcitonin 0.82 H (0-0.5) ng/ml Urine pH 8.5 H (4.5-7.5) 11/01/23 11/01/23 Range/Units 03:31 08:46 WBC 17.70 H (4.8-10.8) K/ul Hgb 13.1 L (14.0-18.0) g/dl Hct 40.3 L (42.0-52.0) % RDW Coeff of Joey 14.9 H (11.5-14.5) % MPV 8.8 L (9.4-12.4) fL Neut # (Auto) 16.52 H (1.40-6.50) K/uL Lymph # (Auto) 0.76 L (1.20-3.40) K/uL [place] # (Auto) (0.11-0.59) K/uL Sodium 134 L (136-145) mmol/L Glucose 144 H (70-99(Fasting)) mg/dl POC Glucose 142 H (70-99) mg/dl Hemoglobin A1c 5.7 H (4.5-5.6) % Calcium 8.1 L (8.6-10.3) mg/dl Magnesium (1.7-2.4) mg/dl Total Protein (6.0-8.3) gm/dl Procalcitonin (0-0.5) ng/ml Urine pH (4.5-7.5) Diagnostic Findings Chest X-Ray 10/31/23 15:12 XR chest 1V portable CLINICAL HISTORY: Sepsis TECHNIQUE: Single frontal radiograph of the chest was obtained. Comparison: Comparison is made to chest radiograph 09/10/2023 FINDINGS: No lines and tubes are seen. The cardiomediastinal silhouette is normal. The lungs are clear. No evidence of pleural effusion or pneumothorax. IMPRESSION: No acute abnormalities and in particular no radiographic evidence of pneumonia. ACT 112: Negative or not required by law. Electronically signed by: Az Borjas M.D. 10/31/2023 4:27 PM PG Care Time/CCT Total # of Minutes Spent Total Time Spent with Patient: Total time spent is greater than 50% in coordination of care (as documented) at patient's floor/unit and/or counseling patient: Coding Level of Care Code 30335 SUB INP/OBS CARE 235MIN Diagnoses Pneumonia J18.1 Laterality: right Lung location: lower lobe of lung Pneumonia type: due to unspecified organism Hypoxia R09.02 Hypomagnesemia E83.42 Type 2 diabetes mellitus E11.9 Schizophrenia F20.9 Leg edema R60.0 1st degree AV block I44.0 Hypothyroidism E03.9 CKD (chronic kidney disease) N18.9 Bipolar 1 disorder F31.9 Asthma J45.909 (1) Pneumonia Laterality: right Lung location: lower lobe of lung Pneumonia type: due to unspecified organism Qualified Code(s): J18.1 - Lobar pneumonia, unspecified organism
[2023-11-01] MEDS: cefTRIAXone SODIUM 2,000 MG/50 ML BAG IV SCH (18:00)
[2023-11-02 07:15] LABS: Basophils # (auto) 0.02 K/uL (0.00-0.20); Basophils % (auto) 0.2 %; Eosinophils # (auto) 0.05 K/uL (0.00-0.50); Eosinophils % (auto) 0.5 %; Hematocrit (blood only) 38.4 % (42.0-52.0); Hemoglobin 12.2 g/dl (14.0-18.0); Immature Granulocytes # (auto) 0.03 K/uL (0.01-0.20); Immature Granulocytes % (auto) 0.3 %; Lymphocytes % (auto) 26.5 %; Mean Corpuscular Hemoglobin 26.3 pg (25.0-34.0); Mean Corpuscular Hgb Conc 31.8 g/dL (32.0-36.0); Mean Corpuscular Volume 82.9 fL (80.0-100.0); Mean Platelet Volume 9.4 fL (9.4-12.4); Monocytes # (auto) 0.58 K/uL (0.11-0.59); Monocytes % (auto) 5.3 %; Neutrophils # (auto) 7.38 K/uL (1.40-6.50); Neutrophils % (auto) 67.2 %; Platelet Count 251 K/uL (130-400); RDW Coefficient of Variation 15.2 % (11.5-14.5); RDW Standard Deviation 46.1 fL (36.4-46.3); Red Blood Count 4.63 M/uL (4.70-6.10); White Blood Count 10.96 K/ul (4.8-10.8)
[2023-11-02 07:30] LABS: BUN Creatinine Ratio 13.2 (10-20); Calcium 8.2 mg/dl (8.6-10.3); Creatinine Clr Calc Pharmacy 110.8 ml/min; Est GFR (Non-African American) 95.7 ml/min; Magnesium 1.9 mg/dl (1.7-2.4); Phosphorus 3.4 mg/dl (2.5-4.9); Potassium 4.3 mmol/L (3.5-5.1)
--- NOTE | 2023-11-02 11:35 | Discharge Summary ---
Discharge Summary Date of Service November 02, 2023 Principal Dx & Hospital Course #1 = Principal Diagnosis (1) Pneumonia: (2) Hypoxia: (3) Hypomagnesemia: (4) Type 2 diabetes mellitus: (5) Schizophrenia: (6) Leg edema: (7) 1st degree AV block: (8) Hypothyroidism: (9) CKD (chronic kidney disease): (10) Bipolar 1 disorder: (11) Asthma: Plan #CAP #Sepsis due to pneumonia (resolved) - Leukocytosis at 14.95 with neutrophil predominance - Elevated procalcitonin 0.88 - BioFire negative - Febrile at 38.2 C on arrival - CXR with potential PNA on right side; will cover for pulmonary source - Acetaminophen as needed for pain/fever - s/p rocephine / doxy while inpt, will discharge on Doxy / Vantin to complete a 5 day course - leukocytosis resolved #Acute Hypoxia (resolved) - Patient's SpO2 was 89% on RA on arrival - He is not on supplemental oxygen at baseline - resolved - Supplemental oxygen as needed to maintain SpO2 >94% - ambulatory pulse ox when stable - pt states that he is supposed to be on CPAP but he does not want to wear one. he also states that he has a sleep study coming up later in the year #Hypomagnesemia: resovled - Mag 1.5 on arrival - replete and monitor #Type 2 diabetes mellitus: - Last A1c at 5.7% on 11/01/2023 - resume metformin on discharge #Schizophrenia #Bipolar 1 disorder - Continue perphenazine or formulary equivalent - Continue home medications #Leg edema: stable - pt states that it is significantly improved compared to prior - Lasix 40 mg p.o. daily - Potassium supplementation 20mEq p.o. daily #1st degree AV block #Hypothyroidism: cont levothyroxine #CKD (chronic kidney disease): Cr stable #Asthma - cont fluticasone / vilanterol - cont montelukast - cont albuterol #HTN - cont lisinopril Disposition: pending clinical improvement Full code T2DM diet VTE PPx: Lovenox 40 mg SQ q24h Notes For Next Care Provider follow up final BCx Medication Changes From Visit added abx Admission HPI Per Admitting Provider Lam is a 63-year-old male with PMH of bipolar 1 disorder, asthma, GERD, CKD, hypothyroidism, HTN, hyperlipidemia, schizoaffective disorder, first-degree AV block, T2DM, BPH, and schizophrenia. He presented via EMS for worsening SOB that began the evening of 10/29. Patient reports that he was lying in bed last night when he developed SOB at rest. Worse lying flat on back. He then developed a fever last night, but did not take his temperature or tried taking Tylenol. He woke up this morning with pleuritic chest pain, gradually increased oxygen demands. He does not use supplemental oxygen at home. No sick contacts. No PMH of DVT/PE. Patient was placed on 4 L NC via EMS. Associated symptoms include dry cough. Patient is unsure if he took his regular morning medicine today, but reports good compliance with managing his medicine at home. No recent change in medications. Patient denies smoking, tobacco use, and recent alcohol use. He is tachycardic at 102 bpm; febrile at 38.2 C, and SpO2 is 93% on RA at time of admission. ED course: Methylprednisolone 60 mg IV Guaifenesin 1200 mg p.o. Rocephin 2000 mg IV Pepcid 20 mg IV Acetaminophen 1000 mg IV NSS 1000 mL IV Zofran 4 mg IV DuoNeb 3 mL ROS: Patient endorses fever, chills, night-sweats, dizziness/lightheadedness with walking, SOB at rest, dry cough, and intermittent left foot neuropathy (chronic). Patient denies MIR, chest pain, chest palpitations, pain/pressure in the left shouler/neck/arm, wheezing, abdominal pain, N/V/D, burning with urination, or dysuria. Admission Exam Per Admitting Provider General: Mild respiratory distress; pleasant affect; non-toxic appearing; well- nourished; cooperative; SpO2 92% on RA HEENT: normocephalic, atraumatic; no scleral icterus; PERRLA w/ EOMs intact; moist mucus membrane; vision and hearing grossly intact Neck: supple; no lymphadenopathy; trachea midline Skin: Skin is warm to touch; without signs of tenting; no cyanosis; no rashes, bruising, lesions, or erythema noted CV: chest wall NTP; RR, tachycardic around 100 bpm; S1/S2 normal; no murmurs/rubs/gallops; pulses intact and symmetric at radial, DP, and PT Lungs: Mild respiratory distress; symmetrical chest wall expansion; bibasilar crackles in the lower lung savage bilaterally; expiratory wheezing ABD: Soft, NTP; BS present; no rebound/guarding; no distention MSK: no tics or fasciculations; nonpitting edema in the lower extremities bilaterally, worse on the left (however patient reports it is usually more swollen than left), nonerythematous Neuro: A&Ox3; normal mood and affect; fluent speech; no focal deficits; sensation grossly intact in the LEs b/l Discharge Exam Gen: no acute distress, sitting in bed comfortably HEENT: normocephalic / atraumatic, anicteric, moist mucous membranes CVS: s1s2 nl, RRR, no M/R/G Lungs: diminished breath sounds at the bases Abd: + bowel sounds, soft, nontender, nondistended, no rigidity / guarding / rebound Ext: + pedal edema b/l L > R Neuro: awake, alert Psych: non anxious Updated Medication List Medication Instructions Recorded Confirmed Type buspirone 30 mg tablet 30 mg PO QAM 01/26/18 10/31/23 History ziprasidone HCl 80 mg capsule 80 mg PO BID 01/26/18 10/31/23 History divalproex 500 mg tablet,delayed See Rx Instructions .Route .COMPLEX 05/27/19 10/31/23 History release ziprasidone HCl 40 mg capsule 40 mg PO BID 05/27/19 10/31/23 History incontinence pad, liner, disp #180 ea 06/11/19 07/31/23 Rx blood-glucose meter (OneTouch #1 ea 07/06/19 07/31/23 Rx UltraMini kit) perphenazine 8 mg tablet 8 mg PO BID 06/04/20 10/31/23 History bupropion HCl 150 mg tablet,12 hr 150 mg PO QAM 09/13/20 10/31/23 History sustained-release acetaminophen 650 mg 650 - 1,300 mg PO DIRECTED PRN 09/19/21 10/31/23 History tablet,extended release (Tylenol 8 Pain Hour) clonazepam 1 mg tablet 1 mg PO BID 02/08/22 10/31/23 History famotidine 20 mg tablet 20 mg PO BID #180 tabs 08/22/22 10/31/23 Rx lisinopril 10 mg tablet 10 mg PO QAM #90 tabs 10/24/22 10/31/23 Rx montelukast 10 mg tablet 10 mg PO PM #90 tabs 01/01/23 10/31/23 Rx fluticasone 250 mcg-salmeterol 50 1 inh inhalation BID #60 ea 06/20/23 10/31/23 Rx mcg/dose blistr powdr for inhalation polyethylene glycol 3350 17 17 g PO BID PRN Constipation #238 06/28/23 10/31/23 Rx gram/dose oral powder grams lancets 33 gauge #100 ea 07/02/23 07/31/23 Rx albuterol sulfate 90 mcg/actuation 2 puff inhalation QID PRN 07/03/23 10/31/23 Rx aerosol inhaler Shortness Of Breath #18 grams fluticasone propionate 50 1 - 2 spray intranasal DAILY PRN 07/03/23 10/31/23 Rx mcg/actuation nasal Allergy Symptoms #16 grams spray,suspension (Allergy Relief (fluticasone)) blood sugar diagnostic (OneTouch #100 ea 07/11/23 07/31/23 Rx Ultra Test strips) aspirin 81 mg tablet,delayed 81 mg PO QAM #90 tabs 07/19/23 10/31/23 Rx release loratadine 10 mg tablet 10 mg PO QAM #90 tabs 07/31/23 10/31/23 Rx metformin 500 mg tablet 500 mg PO BID #180 tabs 08/26/23 10/31/23 Rx levothyroxine 50 mcg tablet 175 mcg (3.5 x 50 mcg) PO QAM #135 09/05/23 10/31/23 Rx tabs finasteride 5 mg tablet 5 mg PO DAILY 09/10/23 10/31/23 History meclizine 25 mg tablet 25 mg PO TID PRN dizziness #30 tabs 09/10/23 10/31/23 Rx omeprazole 20 mg capsule,delayed 20 mg PO QAM 09/10/23 10/31/23 History release pravastatin 20 mg tablet 20 mg PO HS 09/10/23 10/31/23 History furosemide 20 mg tablet 20 mg PO DAILY PRN edema #30 tabs 10/16/23 10/31/23 Rx potassium chloride 10 mEq 10 meq PO DAILY PRN with 06/19/24 07/04/24 Rx capsule,extended release furosemide #30 caps sildenafil (pulm.hypertension) 20 See Rx Instructions .Route 10/21/23 10/31/23 Rx mg tablet .COMPLEX #30 tabs cefpodoxime 200 mg tablet 200 mg PO BID 4 days #8 tabs 11/02/23 Rx doxycycline hyclate 100 mg capsule 100 mg PO BID 4 days #7 caps 11/02/23 Rx Hospital Stay Data Consultations 10/31/23 16:45 ED Decision to Admit Stat Pending Results Patient Have Any Pending Studies at Discharge: Yes Discharge Instructions Given to Patient (Per Discharging Provider) You were admitted to the hospital for the evaluation of shortness of breathing. You were found to have a pneumonia. You were started on IV antibiotics with improvement. You were also found to have mildly low oxygen level. This has also resolved. You are now medically stable for discharge. It was a pleasure being a part of your medical care team during your stay at [facility]. Total Time Total Time Spent Total Time Spent (In Minutes): 45 mins Coding Level of Care Code 76067 INP/OBS DISCH >30 MIN Diagnoses Pneumonia J18.1 Laterality: right Lung location: lower lobe of lung Pneumonia type: due to unspecified organism Hypoxia R09.02 Hypomagnesemia E83.42 Type 2 diabetes mellitus E11.9 Schizophrenia F20.9 Leg edema R60.0 1st degree AV block I44.0 Hypothyroidism E03.9 CKD (chronic kidney disease) N18.9 Bipolar 1 disorder F31.9 Asthma J45.909
== END 2023-11-02 13:21 | disposition home or self-care (01) | DRG 871 ==
LOC: ED 15:02 → EDINP 17:46 → SUATTDRO 17:46 → 2N 20:04
DX: Z79.84 Long term (current) use of oral hypoglycemic drugs; Z79.899 Other long term (current) drug therapy; R60.0 Localized edema; E11.22 Type 2 diabetes mellitus with diabetic chronic kidney disease; R09.02 Hypoxemia; N18.2 Chronic kidney disease, stage 2 (mild); A41.9 Sepsis, unspecified organism; I44.0 Atrioventricular block, first degree; Z79.82 Long term (current) use of aspirin; I12.9 Hypertensive chronic kidney disease with stage 1 through stage 4 chronic kidney disease, or unspecified chronic kidney disease; J18.1 Lobar pneumonia, unspecified organism; K21.9 Gastro-esophageal reflux disease without esophagitis; J45.909 Unspecified asthma, uncomplicated; E78.5 Hyperlipidemia, unspecified; Z79.890 Hormone replacement therapy; F20.9 Schizophrenia, unspecified; E03.9 Hypothyroidism, unspecified; E83.42 Hypomagnesemia; F31.9 Bipolar disorder, unspecified; Z11.52 Encounter for screening for COVID-19

== ENCOUNTER 2024-05-21 05:06 | Observation (INO) ==
--- NOTE | 2024-05-21 05:20 | Emergency Department Note ---
Impression & Plan Fever, Hyponatremia, Weakness, Hypomagnesemia, Acute hyponatremia ED Provider Note CHIEF COMPLAINT: Fever HISTORY OF PRESENTING ILLNESS: This 64-year-old male patient presents to the emergency department via EMS for evaluation of a fever that started 2:30 AM. The patient states that he woke up at 2:30 AM feeling generally unwell with a runny nose, nasal congestion, cough, and nausea. He also had chills and bodyaches. He checked his blood sugar and it was normal per patient. He states that he took Tylenol at 2:50 AM without improvement of his symptoms. He then called 911. Feels tired and like his whole body is weak. The patient had been having diarrhea for the past couple days, but that resolved. Mild cough, but no SOB. Denies chest pain, SOB, or wheezing. Denies abdominal pain, nausea, or vomiting. Denies any urinary symptoms. REVIEW OF SYSTEMS: See HPI for pertinent positives and pertinent negatives. ALLERGIES: NKDA MEDICATIONS: See below PAST MEDICAL HISTORY: See below PHYSICAL EXAM: Vital Signs: Vitals are noted on the nurse's note and reviewed by myself. GENERAL: Non toxic in appearance and in no acute distress. SKIN: Capillary reflex less than 2 seconds. HEAD: Normocephalic, atraumatic. EARS: Bilateral external auditory canals clear without tragus tenderness. Bilateral tympanic membranes pearly sommers without erythema or effusion. No mastoid tenderness bilaterally. EYES: Pupils equal round and reactive to light and accommodation. Conjunctivae without injection, sclerae without icterus. Extraocular movements intact. NOSE: Patent, turbinates inflamed with no discharge. No sinus tenderness. MOUTH: Mucous membranes moist. Airway patent, uvula midline. Pharynx is not erythematous and not edematous without exudate. Pharynx without postnasal drip. No evidence for peritonsillar abscess. NECK: Supple without nuchal rigidity. No lymphadenopathy. HEART: Regular rate and rhythm without murmurs gallops or rubs. LUNGS: Clear to auscultation bilaterally without wheezes, rales or rhonchi. No accessory muscle use or retractions. ABDOMEN: Positive bowel sounds x 4. Normal tympanic percussion. Soft, nontender to palpation. No masses or hepatosplenomegaly. No guarding, rigidity, or rebound tenderness. No CVA tenderness. No focal RLQ or LLQ tenderness. NEURO: Patient was alert and oriented. DIFFERENTIAL DIAGNOSIS: Differential diagnosis includes viral syndrome, RSV, Influenza, COVID, strep throat, pharyngitis/tonsillitis, mononucleosis, retropharyngeal abscess, peritonsillar abscess, otitis media, otitis externa, sinusitis, bronchitis, pneumonia, as well as other pathologies. ED COURSE AND MEDICAL DECISION MAKING: HISTORY FROM INDEPENDENT HISTORIAN: Additional history obtained from EMS. MEDICATIONS GIVEN: 500 ml normal saline solution bolus, Toradol 10 mg IV, and magnesium 1 g IV. MONITOR: Continuous monitor tech: Order was placed for continuous monitor tech. Patient was placed on the monitor tech and continuous pulse ox. Patient was noted to be in normal sinus rhythm at an initial rate of 92 bpm per my interpretation. EKG: EKG was interpreted by myself as sinus rhythm at 87 bpm with a right bundle branch block and left anterior fascicular block with no acute ST or T wave abnormalities and no significant change from his previous EKG. INTERPRETATION OF LABS: I interpreted the labs with full lab results as below in the lab section of this note. Laboratory results pertinent to the emergent complaint are discussed in the MDM section below. The patient was advised to follow up with their PCP and/or specialist(s) for further outpatient monitoring and management of any abnormal results. INTERPRETATION OF IMAGING: Imaging studies were interpreted by myself and read by radiology as per the imaging section of this note. The patient was advised to follow up with their PCP and/or specialist(s) for further outpatient management of any non-emergent abnormal findings. CXR showed bilateral hypertransradiant/hyperinflated lung savage. COPD. Comparing with the previous x-ray dated 12/22/2023 findings remain stable. CONSULTATIONS: On-call hospitalist MDM SUMMARY: I examined the patient. The patient woke up at 2:30 AM with a fever and feeling ill. He took Tylenol at home without improvement of his symptoms. He states he checked his blood sugar which was normal per patient. The patient's temperature was 37.7 C orally upon arrival. The patient's heart rate never got above 98 bpm in the ER. The patient was never hypotensive. No focal evidence for bacterial infection on exam. An IV lock was placed and labs were drawn. The patient was given 500 mL normal saline solution bolus and Toradol 10 mg IV with resolution of his fever and improvement of his heart rate. White blood cell count elevated at 13.38. Hemoglobin normal at 15.6. Platelet count normal at 300. Coags were normal. Sodium low at 128 and chloride 92, but CMP otherwise without significant abnormalities. Magnesium low at 1.6 and the patient was given magnesium 1 g IV. Lipase normal at 43. Lactate and procalcitonin were normal. High-sensitivity troponin normal. TSH normal. Urinalysis with trace ketones, but otherwise normal. Depakote level was 62 and within the normal range. Respiratory BioFire was normal. CXR showed bilateral hypertransradiant/hyperinflated lung savage. COPD. Comparing with the previous x-ray dated 12/22/2023 findings remain stable. Due to the patient's significant hyponatremia, low-grade fever, and feeling weak, I feel the patient would benefit from admission for further evaluation and treatment. I had a meaningful discussion about this patient with Dr. Baez who agrees with my assessment and the treatment plan. I spoke with the on-call hospitalist who agreed to admit the patient for further evaluation and treatment. Please refer to their dictation for further details. The patient's care was transferred in stable condition. DIAGNOSIS: Fever Weakness Hyponatremia Hypomagnesemia Past Med/Surg History Problem List (Updated 05/23/24 @ 19:50 by Sammie Weinberg PA-C) Acute hyponatremia (Acute) Hypomagnesemia (Acute) Weakness (Acute) Hyponatremia (Acute) Fever (Acute) Sepsis Leukocytosis (Acute) Hip pain Lymphedema Hyponatremia (Acute) COVID-19 (Acute) Current use of proton pump inhibitor BPH with obstruction/lower urinary tract symptoms Erectile dysfunction Venous insufficiency (chronic) (peripheral) (Acute) Type 2 diabetes mellitus (Acute) Schizophrenia (Acute 05/20/12) Osteoarthritis of knee (Acute) Nocturia more than twice per night (Acute) Lymphedema of lower extremity (Acute) left Lumbosacral radiculopathy at L5 (Acute) 1st degree AV block History of colon polyps Osteoarthritis of right hip Schizoaffective disorder S/P total hip arthroplasty Cataract Hyperlipidemia Hypothyroidism (05/20/12) Hypertension GERD (gastroesophageal reflux disease) CKD (chronic kidney disease) Stage 2 Bipolar 1 disorder Asthma (Acute) used rescue inhaler "recently" Medical History (Updated 05/23/24 @ 19:50 by Sammie Weinberg PA-C) Hypoxia Pneumonia Hx of basal cell carcinoma Encounter for pre-operative examination History of blood transfusion after left TKA Psychogenic polydipsia LOW (dyspnea on exertion) Diabetes mellitus, type 2 NIDDM BPH (benign prostatic hyperplasia) Right bundle branch block with left anterior fascicular block Bifascicular block - had ECHO 09/20/21 Follows with PCP Urinary incontinence Hearing deficit Sleep apnea NO DEVICE Schizoaffective disorder, bipolar type Surgical History History of right cataract extraction Left eye also done History of hip replacement R hip 11/2021 [place] teeth extracted History of total knee replacement LEFT History of esophagogastroduodenoscopy (EGD) History of colonoscopy History of tonsillectomy Family History Unknown Hypertension Mother Hypertension Sister Diabetes Other No family history of adverse response to anesthesia Denies family history of Ovarian cancer Prostate cancer Myocardial infarction Breast cancer Colorectal cancer Social History Smoking Status: Never smoker Second Hand Exposure: No; Do You Dip or Chew Tobacco: No; Hx Alcohol Use: No Hx Substance Use: No Preferred Language: Bengali Communication Ability: Effective Visual Impairment: No Limitations Hearing Ability: Normal Agriculturist Required: No Beliefs That Will Affect Care: None marital status: Single Current Living Situation: Alone Current Living Situation Comment: HAS [employer] 35 HOURS PER WEEK current occupational status: unemployed How many Children do You have: 0 Feels Safe at Home: Yes Seatbelt Use: always Assistive Devices: Cane, Glasses and Hearing Aid - Bilateral Allergies Allergies Allergy/AdvReac Type Severity Reaction Status Date / Time No Known Allergies Allergy Verified 05/25/24 12:23 Home Meds Home Medications Medication Instructions Recorded Confirmed buspirone 30 mg tablet 30 mg PO QAM 01/26/18 05/21/24 ziprasidone HCl 80 mg capsule 80 mg PO BID 01/26/18 05/21/24 ziprasidone HCl 40 mg capsule 40 mg PO BID 05/27/19 05/21/24 bupropion HCl 150 mg tablet,12 hr 150 mg PO QAM 09/13/20 05/21/24 sustained-release acetaminophen 650 mg 650 - 1,300 mg PO DIRECTED PRN 09/19/21 05/21/24 tablet,extended release (Tylenol 8 Pain Hour) clonazepam 1 mg tablet 1 mg PO BID PRN Unknown 02/08/22 05/21/24 finasteride 5 mg tablet 5 mg PO DAILY 09/10/23 05/21/24 perphenazine 4 mg tablet See Rx Instructions .Route .COMPLEX 05/21/24 05/21/24 sildenafil (pulm.hypertension) 20 20 - 80 mg PO UD PRN Prior to 05/21/24 05/21/24 mg tablet activity Previous Rx's Medication Instructions Recorded incontinence pad, liner, disp #180 ea 06/11/19 blood-glucose meter (OneTouch #1 ea 07/06/19 UltraMini kit) polyethylene glycol 3350 17 17 g PO BID PRN Constipation #238 06/28/23 gram/dose oral powder grams fluticasone propionate 50 1 - 2 spray intranasal DAILY PRN 07/03/23 mcg/actuation nasal Allergy Symptoms #16 grams spray,suspension (Allergy Relief (fluticasone)) loratadine 10 mg tablet 10 mg PO QAM #90 tabs 07/31/23 metformin 500 mg tablet 500 mg PO BID #180 tabs 08/26/23 meclizine 25 mg tablet 25 mg PO TID PRN dizziness #30 tabs 09/10/23 lisinopril 10 mg tablet 10 mg PO QAM #90 tabs 11/10/23 famotidine 20 mg tablet 20 mg PO BID #180 tabs 11/21/23 montelukast 10 mg tablet 10 mg PO PM #90 tabs 11/26/23 pravastatin 20 mg tablet 20 mg PO HS #90 tabs 01/22/24 potassium chloride 10 mEq 10 meq PO DAILY PRN with 01/27/24 capsule,extended release furosemide #30 caps furosemide 20 mg tablet 20 mg PO DAILY PRN edema #30 tabs 02/03/24 blood sugar diagnostic (OneTouch #100 ea 02/10/24 Ultra Test strips) lancets 33 gauge #100 ea 02/10/24 fluticasone 250 mcg-salmeterol 50 1 inh inhalation BID #60 ea 03/17/24 mcg/dose blistr powdr for inhalation levothyroxine 50 mcg tablet 175 mcg (3.5 x 50 mcg) PO QAM #135 11/19/24 tabs aspirin 81 mg tablet,delayed 81 mg PO QAM #90 tabs 04/21/24 release omeprazole 20 mg capsule,delayed 20 mg PO QAM #90 caps 05/04/24 release albuterol sulfate 90 mcg/actuation 2 puff inhalation QID PRN 05/06/24 aerosol inhaler Shortness Of Breath #18 grams amoxicillin 875 mg-potassium 1 tab PO BID 5 days #10 tabs 05/22/24 clavulanate 125 mg tablet Results & Data (ED) Vital Signs Vital Signs - 24 hr 05/21/24 05:03 05/21/24 05:03 05/21/24 05:24 Temperature 37.7 C H Temperature Source Oral Pulse Rate 96 H 96 H Respiratory Rate 20 Respiratory Effort / Characteristics Non-Labored Non-Labored Respiratory Depth Normal Normal Blood Pressure 152/95 H Blood Pressure Mean 114 Pulse Oximetry 95 Oxygen Delivery Method Room Air Sepsis Recent Fever Within 48 Hours Yes Sepsis New/Unexplained Change in Mental Status No Sepsis Action Taken by Nursing No Action Required 05/21/24 05:33 Temperature Temperature Source Pulse Rate Respiratory Rate Respiratory Effort / Characteristics Respiratory Depth Blood Pressure Blood Pressure Mean Pulse Oximetry 95 Oxygen Delivery Method Room Air Sepsis Recent Fever Within 48 Hours Sepsis New/Unexplained Change in Mental Status Sepsis Action Taken by Nursing Laboratory Data 05/22/24 07:05 05/22/24 07:05 Lab Results 05/21/24 05/21/24 05/21/24 Range/Units 05:20 05:29 06:39 WBC 13.38 H (4.8-10.8) K/ul RBC 5.94 (4.70-6.10) M/uL Hgb 15.6 (14.0-18.0) g/dl Hct 46.7 (42.0-52.0) % MCV 78.6 L (80.0-100.0) fL MCH 26.3 (25.0-34.0) pg MCHC 33.4 (32.0-36.0) g/dL RDW Std Deviation 42.5 (36.4-46.3) fL RDW Coeff of Joey 15.2 H (11.5-14.5) % Plt Count 300 (130-400) K/uL MPV 8.6 L (9.4-12.4) fL Immature Gran % (Auto) 0.4 % Neut % (Auto) 87.1 % Lymph % (Auto) 7.8 % [place] % (Auto) 4.3 % Eos % (Auto) 0.3 % Baso % (Auto) 0.1 % Neut # (Auto) 11.65 H (1.40-6.50) K/uL Lymph # (Auto) 1.05 L (1.20-3.40) K/uL [place] # (Auto) 0.57 (0.11-0.59) K/uL Eos # (Auto) 0.04 (0.00-0.50) K/uL Baso # (Auto) 0.02 (0.00-0.20) K/uL Immature Gran # (Auto) 0.05 (0.01-0.20) K/uL PT 10.3 (9.0-12.0) Seconds INR 0.9 (0.9-1.1) APTT 28 (21-31) Seconds PTT Ratio 1.0 Sodium 128 L (136-145) mmol/L Potassium 3.9 (3.5-5.1) mmol/L Chloride 92 L (98-107) mmol/L Carbon Dioxide 27 (21-32) mmol/L Anion Gap 9 (3-11) BUN 11 (6-23) mg/dl Creatinine 0.93 (0.6-1.4) mg/dl Est Cr Clr Drug Dosing 80.7 ml/min eGFR 90.56 BUN/Creatinine Ratio 11.8 (10-20) Glucose 74 (70-99(Fasting)) mg/dl Lactate 1.0 (0.4-2.0) mmol/L Calcium 9.8 (8.6-10.3) mg/dl Magnesium 1.6 L (1.7-2.4) mg/dl Total Bilirubin 0.4 (0.2-1.0) mg/dl AST 22 (13-39) U/L ALT 20 (7-52) U/L Alkaline Phosphatase 76 (34-104) U/L Troponin I High Sens 6.4 (0-20) pg/ml Total Protein 6.9 (6.0-8.3) gm/dl Albumin 4.6 (3.4-5.0) gm/dl Globulin 2.3 L (2.5-4.0) gm/dl Albumin/Globulin Ratio 2.0 (0.9-2) Lipase 43 (11-82) U/L Procalcitonin 0.03 (0-0.5) ng/ml TSH 1.194 (0.300-4.500) uIu/ml Urine Color Urine Appearance (Clear) Urine pH (4.5-7.5) Ur Specific [place] (1.000-1.030) Urine Protein (Negative) Urine Glucose (UA) (Negative) Urine Ketones (Negative) Urine Blood (Negative) Urine Nitrite (Negative) Urine Bilirubin (Negative) Urine Urobilinogen (Negative) Ur Leukocyte Esterase (Negative) Valproic Acid 62 (50-100) mcg/ml Adenovirus (PCR) Not Detected (NotDetected) B. pertussis DNA (PCR) Not Detected (NotDetected) B.parapertussis DNA PCR Not Detected (NotDetected) C. pneumoniae DNA (PCR) Not Detected (NotDetected) Coronavirus OC43 (PCR) Not Detected (NotDetected) Coronavirus HKU1 (PCR) Not Detected (NotDetected) Coronavirus 229E (PCR) Not Detected (NotDetected) SARS-CoV-2 (PCR) Not Detected (NotDetected) Coronavirus NL63 (PCR) Not Detected (NotDetected) Human Metapneumovir PCR Not Detected (NotDetected) Influenza Type A (PCR) Not Detected (NotDetected) Influenza Type B (PCR) Not Detected (NotDetected) M. pneumoniae (PCR) Not Detected (NotDetected) Parainfluenza 1 (PCR) Not Detected (NotDetected) Parainfluenza 2 (PCR) Not Detected (NotDetected) Parainfluenza 3 (PCR) Not Detected (NotDetected) Parainfluenza 4 (PCR) Not Detected (NotDetected) RSV (PCR) Not Detected (NotDetected) Entero/Rhino (PCR) Not Detected (NotDetected) 05/21/24 Range/Units 08:15 WBC (4.8-10.8) K/ul RBC (4.70-6.10) M/uL Hgb (14.0-18.0) g/dl Hct (42.0-52.0) % MCV (80.0-100.0) fL MCH (25.0-34.0) pg MCHC (32.0-36.0) g/dL RDW Std Deviation (36.4-46.3) fL RDW Coeff of Joey (11.5-14.5) % Plt Count (130-400) K/uL MPV (9.4-12.4) fL Immature Gran % (Auto) % Neut % (Auto) % Lymph % (Auto) % [place] % (Auto) % Eos % (Auto) % Baso % (Auto) % Neut # (Auto) (1.40-6.50) K/uL Lymph # (Auto) (1.20-3.40) K/uL [place] # (Auto) (0.11-0.59) K/uL Eos # (Auto) (0.00-0.50) K/uL Baso # (Auto) (0.00-0.20) K/uL Immature Gran # (Auto) (0.01-0.20) K/uL PT (9.0-12.0) Seconds INR (0.9-1.1) APTT (21-31) Seconds PTT Ratio Sodium (136-145) mmol/L Potassium (3.5-5.1) mmol/L Chloride (98-107) mmol/L Carbon Dioxide (21-32) mmol/L Anion Gap (3-11) BUN (6-23) mg/dl Creatinine (0.6-1.4) mg/dl Est Cr Clr Drug Dosing ml/min eGFR BUN/Creatinine Ratio (10-20) Glucose (70-99(Fasting)) mg/dl Lactate (0.4-2.0) mmol/L Calcium (8.6-10.3) mg/dl Magnesium (1.7-2.4) mg/dl Total Bilirubin (0.2-1.0) mg/dl AST (13-39) U/L ALT (7-52) U/L Alkaline Phosphatase (34-104) U/L Troponin I High Sens (0-20) pg/ml Total Protein (6.0-8.3) gm/dl Albumin (3.4-5.0) gm/dl Globulin (2.5-4.0) gm/dl Albumin/Globulin Ratio (0.9-2) Lipase (11-82) U/L Procalcitonin (0-0.5) ng/ml TSH (0.300-4.500) uIu/ml Urine Color Yellow Urine Appearance Clear (Clear) Urine pH 7.5 (4.5-7.5) Ur Specific [place] 1.005 (1.000-1.030) Urine Protein Negative (Negative) Urine Glucose (UA) Negative (Negative) Urine Ketones Trace H (Negative) Urine Blood Negative (Negative) Urine Nitrite Negative (Negative) Urine Bilirubin Negative (Negative) Urine Urobilinogen Negative (Negative) Ur Leukocyte Esterase Negative (Negative) Valproic Acid (50-100) mcg/ml Adenovirus (PCR) (NotDetected) B. pertussis DNA (PCR) (NotDetected) B.parapertussis DNA PCR (NotDetected) C. pneumoniae DNA (PCR) (NotDetected) Coronavirus OC43 (PCR) (NotDetected) Coronavirus HKU1 (PCR) (NotDetected) Coronavirus 229E (PCR) (NotDetected) SARS-CoV-2 (PCR) (NotDetected) Coronavirus NL63 (PCR) (NotDetected) Human Metapneumovir PCR (NotDetected) Influenza Type A (PCR) (NotDetected) Influenza Type B (PCR) (NotDetected) M. pneumoniae (PCR) (NotDetected) Parainfluenza 1 (PCR) (NotDetected) Parainfluenza 2 (PCR) (NotDetected) Parainfluenza 3 (PCR) (NotDetected) Parainfluenza 4 (PCR) (NotDetected) RSV (PCR) (NotDetected) Entero/Rhino (PCR) (NotDetected) Administered Medications Discontinued Medications Aspirin (Aspirin 81 Mg Ectab) 81 mg PO QAM [facility] Stop: 06/20/24 13:44 Last Admin: 05/22/24 08:03 Dose: 81 mg Documented By: Admin: 05/21/24 14:18 Dose: 81 mg Documented By: LILI Bupropion HCl (Bupropion Sr 150 Mg Tabcr) 150 mg PO BID [facility] Stop: 06/20/24 13:59 Last Admin: 05/22/24 08:04 Dose: 150 mg Documented By: Admin: 05/21/24 20:40 Dose: 150 mg Documented By: Admin: 05/21/24 14:38 Dose: 150 mg Documented By: LILI Buspirone HCl (Buspirone 15 Mg Tab) 30 mg PO BID [facility] Stop: 06/20/24 13:59 Last Admin: 05/22/24 08:09 Dose: 30 mg Documented By: Admin: 05/21/24 20:40 Dose: 30 mg Documented By: Admin: 05/21/24 14:38 Dose: 30 mg Documented By: LILI Clonazepam (Clonazepam 1 Mg Tab) 1 mg PO BID [facility] Stop: 06/20/24 13:44 Last Admin: 05/22/24 08:06 Dose: 1 mg Documented By: Admin: 05/21/24 20:59 Dose: 1 mg Documented By: Admin: 05/21/24 14:18 Dose: 1 mg Documented By: LILI Divalproex Sodium (Divalproex Extended Release 500 Mg Tab) 500 mg PO QAM [facility] Stop: 06/20/24 13:59 Last Admin: 05/22/24 08:03 Dose: 500 mg Documented By: Admin: 05/21/24 14:38 Dose: 500 mg Documented By: LILI Divalproex Sodium (Divalproex Extended Release 500 Mg Tab) 1,000 mg PO HS [facility] Stop: 06/20/24 20:59 Last Admin: 05/21/24 20:43 Dose: 1,000 mg Documented By: ANNA Finasteride (Finasteride 5 Mg Tab) 5 mg PO DAILY [facility] Stop: 06/20/24 13:44 Last Admin: 05/22/24 08:03 Dose: 5 mg Documented By: Admin: 05/21/24 14:38 Dose: 5 mg Documented By: LILI Sodium Chloride (Nss) 500 mls @ 999 mls/hr IV .Q31M ONE Stop: 05/21/24 05:59 Last Infusion: 05/21/24 06:43 Dose: Infused Documented By: Admin: 05/21/24 05:36 Dose: 999 mls/hr Documented By: ERIK Magnesium Sulfate/Dextrose (Magnesium Sulfate / D5w) 1 gm in 100 mls @ 50 mls/hr IV Q2H [facility] Stop: 05/21/24 14:14 Last Infusion: 05/21/24 16:18 Dose: Infused Documented By: Admin: 05/21/24 14:12 Dose: 50 mls/hr Documented By: Infusion: 05/21/24 13:10 Dose: Infused Documented By: Admin: 05/21/24 11:10 Dose: 50 mls/hr Documented By: Infusion: 05/21/24 11:03 Dose: Infused Documented By: Admin: 05/21/24 09:03 Dose: 50 mls/hr Documented By: MIGUEL A Ceftriaxone Sodium (Rocephin) 2,000 mg in 50 mls @ 100 mls/hr IV Q24H [facility]; Protocol Stop: 05/26/24 13:59 Last Infusion: 05/21/24 15:33 Dose: Infused Documented By: Admin: 05/21/24 14:18 Dose: 100 mls/hr Documented By: LILI Sodium Chloride (Nss) 1,000 mls @ 80 mls/hr IV .[id number] [facility] Stop: 05/22/24 13:28 Last Admin: 05/22/24 04:00 Dose: 80 mls/hr Documented By: Infusion: 05/22/24 02:48 Dose: Infused Documented By: Admin: 05/21/24 14:18 Dose: 80 mls/hr Documented By: LILI Doxycycline Hyclate 100 mg/ (Dextrose) 100 mls @ 50 mls/hr IV Q12H [facility] Stop: 05/26/24 13:59 Last Infusion: 05/22/24 06:01 Dose: Infused Documented By: Admin: 05/22/24 03:59 Dose: 50 mls/hr Documented By: Infusion: 05/21/24 17:42 Dose: Infused Documented By: Admin: 05/21/24 14:18 Dose: 50 mls/hr Documented By: LILI Insulin Aspart (Insulin Aspart Per Unit Charge) 0 units SC ACHS [facility] Stop: 06/20/24 13:28 Last Admin: 05/22/24 11:29 Dose: Not Given Documented By: Admin: 05/22/24 07:35 Dose: Not Given Documented By: Admin: 05/21/24 20:59 Dose: Not Given Documented By: ANNA Co-signed By: GINA Admin: 05/21/24 17:42 Dose: Not Given Documented By: Admin: 05/21/24 14:08 Dose: Not Given Documented By: LILI Ketorolac Tromethamine (Ketorolac Tromethamine 15 Mg/Ml Vial) 10 mg IV NOW ONE Stop: 05/21/24 05:30 Last Admin: 05/21/24 05:36 Dose: 10 mg Documented By: ERIK Levothyroxine Sodium (Levothyroxine Sodium 175 Mcg Tablet) [facility]: 06/20/24 13:44 Last Admin: 05/22/24 06:01 Dose: 175 mcg Documented By: Admin: 05/21/24 14:19 Dose: 175 mcg Documented By: LILI Loratadine (Lor[facility]adine 10 Mg Tab) [facility] [facility]: 06/20/24 13:44 Last Admin: 05/22/24 08:03 Dose: 10 mg Documented By: Admin: 05/21/24 14:38 Dose: 10 mg Documented By: LILI Miscellaneous (Carbohydrates For Hypoglycemia ) 15 - 30 gm PO UD PRN PRN Reason: Hypoglycemia Protocol Stop: 06/20/24 13:28 Last Admin: 05/22/24 11:26 Dose: 15 gm Documented By: BROOKE Montelukast Sodium (Montelukast Sodium 10 Mg Tablet) 10 mg PO PM [facility] Stop: 06/20/24 20:59 Last Admin: 05/21/24 20:42 Dose: 10 mg Documented By: ANNA Perphenazine (Perphenazine 4 Mg Tab) 4 mg PO [facility] Stop: 06/20/24 13:59 Last Admin: 05/22/24 08:04 Dose: 4 mg Documented By: Admin: 05/21/24 14:19 Dose: 4 mg Documented By: LILI Perphenazine (Perphenazine 4 Mg Tab) 8 mg PO HS [facility] Stop: 06/20/24 20:59 Last Admin: 05/21/24 20:40 Dose: 8 mg Documented By: ANNA Pneumococcal 20-Valent Conj Vacc (Pneumococcal Vaccine (Pcv20) 20-Sonya Conj-Dip Crm/Pf 0.5 Ml Syr) 0.5 ml IM .ONCE ONE Stop: 05/21/24 13:18 Last Admin: 05/22/24 11:33 Dose: Not Given Documented By: BROOKE Polyethylene Glycol (Polyethylene (Miralax) 17 Gm Pack) 17 gm PO DAILY PRN PRN Reason: Constipation Stop: 06/20/24 18:12 Last Admin: 05/22/24 12:12 Dose: 17 gm Documented By: Admin: 05/21/24 18:27 Dose: 17 gm Documented By: LILI Pravastatin Sodium (Pravastatin Sod 20 Mg Tab) 20 mg PO HS [facility] Stop: 06/20/24 20:59 Last Admin: 05/21/24 20:42 Dose: 20 mg Documented By: ANNA Ziprasidone (Ziprasidone Hcl 20 Mg Cap) 40 mg PO BID [facility] Stop: 06/20/24 13:28 Last Admin: 05/22/24 08:03 Dose: 40 mg Documented By: Admin: 05/21/24 21:02 Dose: 40 mg Documented By: Admin: 05/21/24 14:38 Dose: 40 mg Documented By: LILI Ziprasidone (Ziprasidone Hcl 80 Mg Cap) 80 mg PO BID [facility] Stop: 06/20/24 13:28 Last Admin: 05/22/24 08:05 Dose: 80 mg Documented By: Admin: 05/21/24 21:02 Dose: 80 mg Documented By: Admin: 05/21/24 14:39 Dose: 80 mg Documented By: LILI Discharge Plan Visit Data Chief Complaint: Fever Stated Complaint: FEVER SINCE 0230 ED Provider: Miya Baez ED Midlevel Provider: Sammie Weinberg Discharge Problem: Fever, Hyponatremia, Weakness, Hypomagnesemia, Acute hyponatremia Patient Disposition: Admitted As Inpatient Condition: Good Discharge Instructions Interventions: ED Discharge Assessment Last Done: 05/21/24 12:20 Discharge Problem: Fever Qualifiers: Encounter type: initial encounter
[2024-05-21] MEDS: SODIUM CHLORIDE 0.9% 500 ML IV ONE (05:36)
[2024-05-21] MEDS: KETOROLAC TROMETHAMINE 15 MG/ML VIAL IV ONE (05:36)
[2024-05-21 05:56] LABS: Basophils # (auto) 0.02 K/uL (0.00-0.20); Basophils % (auto) 0.1 %; Eosinophils # (auto) 0.04 K/uL (0.00-0.50); Eosinophils % (auto) 0.3 %; Hematocrit (blood only) 46.7 % (42.0-52.0); Hemoglobin 15.6 g/dl (14.0-18.0); Immature Granulocytes # (auto) 0.05 K/uL (0.01-0.20); Immature Granulocytes % (auto) 0.4 %; Lymphocytes # (auto) 1.05 K/uL (1.20-3.40); Lymphocytes % (auto) 7.8 %; Mean Corpuscular Hemoglobin 26.3 pg (25.0-34.0); Mean Corpuscular Hgb Conc 33.4 g/dL (32.0-36.0); Mean Corpuscular Volume 78.6 fL (80.0-100.0); Mean Platelet Volume 8.6 fL (9.4-12.4); Monocytes # (auto) 0.57 K/uL (0.11-0.59); Monocytes % (auto) 4.3 %; Neutrophils # (auto) 11.65 K/uL (1.40-6.50); Neutrophils % (auto) 87.1 %; Platelet Count 300 K/uL (130-400); RDW Coefficient of Variation 15.2 % (11.5-14.5); RDW Standard Deviation 42.5 fL (36.4-46.3); Red Blood Count 5.94 M/uL (4.70-6.10); White Blood Count 13.38 K/ul (4.8-10.8)
[2024-05-21 05:59] LABS: Albumin Level 4.6 gm/dl (3.4-5.0); BUN Creatinine Ratio 11.8 (10-20); Bilirubin,Total 0.4 mg/dl (0.2-1.0); Calcium 9.8 mg/dl (8.6-10.3); Creatinine Clr Calc Pharmacy 80.7 ml/min; Globulin 2.3 gm/dl (2.5-4.0); Magnesium 1.6 mg/dl (1.7-2.4); Potassium 3.9 mmol/L (3.5-5.1); Total Protein 6.9 gm/dl (6.0-8.3)
[2024-05-21 06:03] LABS: Troponin I High Sensitivity 6.4 pg/ml (0-20)
[2024-05-21 06:12] LABS: Thyroid Stimulating Hormone 1.194 uIu/ml (0.300-4.500)
[2024-05-21 06:14] LABS: INR 0.9 (0.9-1.1); Partial Thromboplastin Time 28 Seconds (21-31); Prothrombin Time 10.3 Seconds (9.0-12.0)
[2024-05-21 06:51] LABS: Adenovirus PCR Not Detected (NotDetected); Bordetella parapertussis PCR Not Detected (NotDetected); Bordetella pertussis PCR Not Detected (NotDetected); Chlamydia pneumoniae PCR Not Detected (NotDetected); Coronavirus 229E PCR Not Detected (NotDetected); Coronavirus CoV-2 (COVID19)PCR Not Detected (NotDetected); Coronavirus HKU1 PCR Not Detected (NotDetected); Coronavirus NL63 PCR Not Detected (NotDetected); Coronavirus OC43PCR Not Detected (NotDetected); Human Metapneumovirus PCR Not Detected (NotDetected); Influenza A PCR Not Detected (NotDetected); Influenza B PCR Not Detected (NotDetected); Mycoplasma pneumoniae PCR Not Detected (NotDetected); Parainfluenza Virus 1 PCR Not Detected (NotDetected); Parainfluenza Virus 2 PCR Not Detected (NotDetected); Parainfluenza Virus 3 PCR Not Detected (NotDetected); Parainfluenza Virus 4 PCR Not Detected (NotDetected); Respiratory Syncytial VirusPCR Not Detected (NotDetected); Rhinovirus/Enterovirus PCR Not Detected (NotDetected)
--- NOTE | 2024-05-21 07:19 | XRay Report ---
EXAM: XR chest 1V portable CLINICAL HISTORY: FEVER SOB JMF TECHNIQUE: An X-ray image of the chest is obtained in 1 AP projection. COMPARISON: 12/22/2023 CR. FINDINGS: Pulmonary Parenchyma: Bilateral hypertransradiant/hyperinflated lung savage suggestive of chronic obstructive airway disease. No evidence of consolidation, collapse. No pulmonary nodules are identified. Right costophrenic recess is normal no pleural effusion/pleural thickening seen. Left costophrenic recess is obscured. Heart and Mediastinum: Cardiac shadow is minimally enlarged. No mediastinal widening or masses. No hilar or mediastinal lymphadenopathy. Bony Thorax: Mild scoliosis of thoracic spine. No fracture seen. Soft Tissues: Soft tissues overlying the chest wall are unremarkable. IMPRESSION: 1. Bilateral hypertransradiant/hyperinflated lung savage. COPD. 2. Comparing with the previous x-ray dated 12/22/2023 findings remain stable. Electronically signed by Chanelle Vincent 05-21-2024 07:18 AM
--- NOTE | 2024-05-21 07:26 | Emergency Department Note ---
ED Visit Note I was consulted by the Advanced Practice Provider. I personally approved the management plan and take responsibility for the patient management. I performed a substantive portion of the visit. This includes the aspects of: -History/Physical -MDM -I independently interpreted the following studies:Studies and results .
--- NOTE | 2024-05-21 07:57 | History & Physical Report ---
Date of Service May 21, 2024 Assessment & Plan (1) Sepsis: (2) Hyponatremia: (3) CKD (chronic kidney disease): (4) Hypertension: (5) Lymphedema: (6) BPH with obstruction/lower urinary tract symptoms: (7) Type 2 diabetes mellitus: (8) Schizophrenia: (9) Hyperlipidemia: (10) Hypothyroidism: (11) GERD (gastroesophageal reflux disease): (12) Bipolar 1 disorder: (13) Asthma: Plan Lam Wong is a 64-year-old male with a past medical history notable bipolar 1 disorder, asthma, GERD, CKD stage II, hypothyroidism, hypertension, hyperlipidemia, schizoaffective disorder, first-degree AV block, T2DM, BPH, and schizophrenia who presented to the ED for evaluation of fever, cough, congestion, recent history of diarrhea, who was admitted for further evaluation of sepsis meeting SIRS criteria. #Sepsis/?Pneumonia - SIRS criteria met: Leukocytosis + Tachycardia - Blood culture results pending - Abx: Ceftriaxone + Doxycycline - CBC QAM Urinalysis: unremarkable Negative respiratory BioFIRE CXR: Hyperinflation/Hypertransparency of the bilateral lung savage VBG: notable for pH 7.48 and pCO2 33 #Hyponatremia - NSS bolus + maintenance - BMP Q6Hr once + QAM #Hypomagnesemia - 3 units of Magnesium - Mg level QAM once if resolved #Diabetes - Glucose checks + sliding scale insulin - HbA1C Hold metformin #Chronic Conditions Allergic rhinorrhea/conjunctivitis: Loratadine Anxiety: Bupropion, Buspirone, Clonazepam Asthma: Albuterol, Fluticasone-Salmeterol (hold), Montelukast Bipolar I: Valproate BPH: Finasteride CKD II: Monitor Cr GERD: Famotidine (hold), Omeprazole (hold) Hyperlipidemia: Pravastatin Hypertension: Lisinopril (hold) Hypothyroidism: Levothyroxine Lymphedema: Furosemide x2 weekly with potassium chloride (per patient) ( hold) Schizophrenia: Perphenazine, Ziprasidone Dispo: Med Tele DVT PPx: Ambulation Diet: Low Carb Code: Full Code History of Present Illness Chief Complaint: Weakness, hyponatremia, fever Primary Care Provider: Yohannes Carrillo MD Lam Wong is a 64-year-old male with a past medical history notable bipolar 1 disorder, asthma, GERD, CKD stage II, hypothyroidism, hypertension, hyperlipidemia, schizoaffective disorder, first-degree AV block, T2DM, BPH, and schizophrenia who presented to the ED for evaluation of fever that started around 02:00. He states that he woke up feeling unwell with fevers, chills, despite wearing a heavy coat and using blankets, and rigors. He supports having nasal congestion, runny nose, cough and some nausea during this timeframe. During this time, he checked his blood sugar, which he considered normal. He proceeded to take two tablets of acetaminophen. After two hours of unresolved symptoms, he called for EMS. On arrival, he endorsed that he felt weak; however, this has markedly improved. He mentioned having several days of diarrhea, than have since resolved prior to his febrile episode today that was without blood or abdominal pain and has returned for formed stool yesterday. He had some intermittent mild nausea during this time, without emesis. Additionally, he had a mild cough without shortness of breath, chest pain, or dyspnea with movement. He denies urinary symptoms. He supports that he generally has a low sodium level. He mentioned having bug bites on his forearms that he noticed several days ago. Allergies Allergy/AdvReac Type Severity Reaction Status Date / Time No Known Allergies Allergy Verified 05/21/24 09:33 Home Medications Medication Instructions Recorded Confirmed Type buspirone 30 mg tablet 30 mg PO QAM 01/26/18 05/21/24 History ziprasidone HCl 80 mg capsule 80 mg PO BID 01/26/18 05/21/24 History ziprasidone HCl 40 mg capsule 40 mg PO BID 05/27/19 05/21/24 History incontinence pad, liner, disp #180 ea 06/11/19 03/03/24 Rx blood-glucose meter (OneTouch #1 ea 07/06/19 03/03/24 Rx UltraMini kit) bupropion HCl 150 mg tablet,12 hr 150 mg PO QAM 09/13/20 05/21/24 History sustained-release acetaminophen 650 mg 650 - 1,300 mg PO DIRECTED PRN 09/19/21 05/21/24 History tablet,extended release (Tylenol 8 Pain Hour) clonazepam 1 mg tablet 1 mg PO BID PRN Unknown 02/08/22 05/21/24 History polyethylene glycol 3350 17 17 g PO BID PRN Constipation #238 06/28/23 05/21/24 Rx gram/dose oral powder grams fluticasone propionate 50 1 - 2 spray intranasal DAILY PRN 07/03/23 05/21/24 Rx mcg/actuation nasal Allergy Symptoms #16 grams spray,suspension (Allergy Relief (fluticasone)) loratadine 10 mg tablet 10 mg PO QAM #90 tabs 07/31/23 05/21/24 Rx metformin 500 mg tablet 500 mg PO BID #180 tabs 08/26/23 05/21/24 Rx finasteride 5 mg tablet 5 mg PO DAILY 09/10/23 05/21/24 History meclizine 25 mg tablet 25 mg PO TID PRN dizziness #30 tabs 09/10/23 05/21/24 Rx lisinopril 10 mg tablet 10 mg PO QAM #90 tabs 11/10/23 05/21/24 Rx famotidine 20 mg tablet 20 mg PO BID #180 tabs 11/21/23 05/21/24 Rx montelukast 10 mg tablet 10 mg PO PM #90 tabs 11/26/23 05/21/24 Rx pravastatin 20 mg tablet 20 mg PO HS #90 tabs 01/22/24 05/21/24 Rx potassium chloride 10 mEq 10 meq PO DAILY PRN with 01/27/24 05/21/24 Rx capsule,extended release furosemide #30 caps furosemide 20 mg tablet 20 mg PO DAILY PRN edema #30 tabs 02/03/24 05/21/24 Rx blood sugar diagnostic (OneTouch #100 ea 02/10/24 03/03/24 Rx Ultra Test strips) lancets 33 gauge #100 ea 02/10/24 03/03/24 Rx fluticasone 250 mcg-salmeterol 50 1 inh inhalation BID #60 ea 03/17/24 05/21/24 Rx mcg/dose blistr powdr for inhalation levothyroxine 50 mcg tablet 175 mcg (3.5 x 50 mcg) PO QAM #135 03/17/24 05/21/24 Rx tabs aspirin 81 mg tablet,delayed 81 mg PO QAM #90 tabs 04/21/24 05/21/24 Rx release omeprazole 20 mg capsule,delayed 20 mg PO QAM #90 caps 05/04/24 05/21/24 Rx release albuterol sulfate 90 mcg/actuation 2 puff inhalation QID PRN 05/06/24 05/21/24 Rx aerosol inhaler Shortness Of Breath #18 grams perphenazine 4 mg tablet See Rx Instructions .Route .COMPLEX 05/21/24 05/21/24 History sildenafil (pulm.hypertension) 20 20 - 80 mg PO UD PRN Prior to 05/21/24 05/21/24 History mg tablet activity Past Med/Surg History Problem List (Updated 05/21/24 @ 09:09 by Rome Cabello DO) Sepsis Leukocytosis (Acute) Hip pain Lymphedema Hyponatremia (Acute) COVID-19 (Acute) Current use of proton pump inhibitor BPH with obstruction/lower urinary tract symptoms Erectile dysfunction Venous insufficiency (chronic) (peripheral) (Acute) Type 2 diabetes mellitus (Acute) Schizophrenia (Acute 05/20/12) Osteoarthritis of knee (Acute) Nocturia more than twice per night (Acute) Lymphedema of lower extremity (Acute) left Lumbosacral radiculopathy at L5 (Acute) 1st degree AV block History of colon polyps Osteoarthritis of right hip Schizoaffective disorder S/P total hip arthroplasty Cataract Hyperlipidemia Hypothyroidism (05/20/12) Hypertension GERD (gastroesophageal reflux disease) CKD (chronic kidney disease) Stage 2 Bipolar 1 disorder Asthma (Acute) used rescue inhaler "recently" Medical History (Updated 05/21/24 @ 09:09 by Rome Cabello DO) Hypoxia Pneumonia Hx of basal cell carcinoma Encounter for pre-operative examination History of blood transfusion after left TKA Psychogenic polydipsia LOW (dyspnea on exertion) Diabetes mellitus, type 2 NIDDM BPH (benign prostatic hyperplasia) Right bundle branch block with left anterior fascicular block Bifascicular block - had ECHO 09/20/21 Follows with PCP Urinary incontinence Hearing deficit Sleep apnea NO DEVICE Schizoaffective disorder, bipolar type Surgical History History of right cataract extraction Left eye also done History of hip replacement R hip 11/2021 [place] teeth extracted History of total knee replacement LEFT History of esophagogastroduodenoscopy (EGD) History of colonoscopy History of tonsillectomy Family History Unknown Hypertension Mother Hypertension Sister Diabetes Other No family history of adverse response to anesthesia Denies family history of Ovarian cancer Prostate cancer Myocardial infarction Breast cancer Colorectal cancer Social History Smoking Status: Never smoker Second Hand Exposure: No; Do You Dip or Chew Tobacco: No; Tobacco Cessation Education Requested by Patient: No Hx Alcohol Use: No Hx Substance Use: No Preferred Language: Iraqi Communication Ability: Effective Visual Impairment: No Limitations Hearing Ability: Normal 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 In no apparent distress. Cardiovascular: Tachycardic. S1 and S2 appreciated. No rubs, murmurs, or gallops noted Respiratory: Lungs are clear to auscultation bilaterally, although lung sounds diminished diffusely. No wheezes, crackles, or rhonchi appreciated. No accessory respiratory muscle use. Conversational without shortness of breath. Abdomen: Normoactive bowel sounds. Soft, non-distended abdomen. No tenderness to palpation. No organomegaly. Integumentary: Bilateral hands appear erythematous compared to forearms without bites appreciated. Right forearm near wrist small laceration with dried blood. Bilateral lower extremity non-pitting edema. Results & Data Results & Data Vital Signs (Past 12 Hours) Vital Signs Temp Pulse Pulse Resp BP BP Pulse Ox 05/21/24 06:30 98 H 20 133/84 97 05/21/24 05:33 95 05/21/24 05:24 96 H 05/21/24 05:03 37.7 C H 96 H 20 152/95 H 95 O2 Del Method 05/21/24 06:30 Room Air 05/21/24 05:33 Room Air 05/21/24 05:24 05/21/24 05:03 Room Air Code Status & VTE Plan Code Status Full Code Supervising Physician Co-Signing Physician Notes Resident attestation Patient seen and examined with the med student. In agreement with documentation above. In summary patient is a 64-year-old who comes in with sepsis due to unknown source. Most likely pneumonia. Respiratory BioFire negative. Started on ceftriaxone and doxycycline. Referred azithromycin due to prolonged QT. Patient was also found to be hyponatremic and started on fluids. This is a chronic problem for the patient. Will continue monitoring BMP every 6 hours. Patient also had low magnesium. Repleted. Will check in the AM. Patient is feeling better. May discharge tomorrow. Attending attestation Pt seen and examined in concert with Dr. Cabello, [facility]. In agreement with the documented findings as noted in the resident documentation with any exceptions or additions as noted here. Reports improved fatigue and malaise since admission without fever, chills, nausea or pain. VS as noted. On examination, S1/S2 nl RRR no MCG. No adventitious breath sounds appreciated. Abd NT/ND BS+ve. WBC 13.38, Na 129 Sepsis with concern for pulmonary source - BCx pending - continue doxycycline and ceftriaxone and follow c/s. Trend WBC daily. Biofire negative. Hyponatremia - likely hydration component but may also be SIADH w/ respiratory infection. Recheck BMP in PM. Gentle hydration. Else see resident documentation as noted. (1) Sepsis Sepsis acute organ dysfunction status: without acute organ dysfunction Sepsis type: sepsis due to unspecified organism Qualified Code(s): A41.9 - Sepsis, unspecified organism (8) Schizophrenia Schizophrenia type: unspecified Qualified Code(s): F20.9 - Schizophrenia, unspecified (13) Asthma Asthma complication type: unspecified Asthma persistence: unspecified Asthma severity: mild Qualified Code(s): J45.909 - Unspecified asthma, uncomplicated
[2024-05-21] MEDS: MAGNESIUM SULFATE / D5W 1 GM/100 ML BAG IV SCH (09:03)
[2024-05-21 09:24] LABS: Appearance Urine Clear (Clear); Bilirubin Urine Negative (Negative); Blood Urine Negative (Negative); Color Urine Yellow; Glucose Urine UA Negative (Negative); Ketones Urine Trace (Negative); Leukocyte Esterase Urine Negative (Negative); Nitrite Urine Negative (Negative); Protein Urine Negative (Negative); Specific Gravity Urine 1.005 (1.000-1.030); Urobilinogen Urine Negative (Negative); pH Urine 7.5 (4.5-7.5)
[2024-05-21 10:10] LABS: Base Excess VBG 1.6 mEq/L; HCO3 VBG 25 mmol/L; Oxygen Saturation VBG 93.3 %; PCO2 VBG 33 mmHg (38-50); PO2 VBG 63 mmHg; pH VBG 7.48 (7.36-7.41)
[2024-05-21] MEDS ORDERED: PHARMACY GLYCEMIC MGMT CONSULT PRN (13:29)
[2024-05-21] MEDS ORDERED: GLUCOSE 10 TAB/TUBE PO PRN (13:29)
[2024-05-21] MEDS ORDERED: GLUCAGON FOR INJ 1 MG VIAL SQ PRN (13:29)
[2024-05-21] MEDS ORDERED: DEXTROSE 50% 50 ML SYRINGE IV PRN (13:29)
[2024-05-21] MEDS ORDERED: ALBUTEROL HFA 8 GM INHALER INH PRN (13:29)
[2024-05-21] MEDS ORDERED: ACETAMINOPHEN 325 MG TAB PO PRN (13:29)
[2024-05-21] MEDS ORDERED: GLUCOSE 40% GEL 15 GM TUBE PO PRN (13:29)
--- NOTE | 2024-05-21 13:46 | Electrocardiogram Report ---
Test Reason : Blood Pressure : */* mmHG Vent. Rate : 97 BPM Atrial Rate : 97 BPM P-R Int : 232 ms QRS Dur : 154 ms QT Int : 384 ms P-R-T Axes : 58 -62 76 degrees QTcB Int : 487 ms Sinus rhythm with 1st degree A-V block Right bundle branch block Left anterior fascicular block Bifascicular block Left ventricular hypertrophy with repolarization abnormality Cannot rule out Septal infarct (cited on or before 24-Aug-2018) Abnormal ECG Confirmed by Negrito Dailey ([id number]) on 05/21/2024 1:45:30 PM Referred By: REFERRED SELF Confirmed By: Negrito Dailey
[2024-05-21] MEDS: INSULIN ASPART PER UNIT CHARGE SC SCH (14:08)
[2024-05-21] MEDS: SODIUM CHLORIDE 0.9% 1,000 ML IV SCH (14:18)
[2024-05-21] MEDS: clonazePAM 1 MG TAB PO SCH (14:18)
[2024-05-21] MEDS: DOXYCYCLINE HYCLATE 100 MG in DEXTROSE 5% MINI-B 100 ML IV SCH (14:18)
[2024-05-21] MEDS: cefTRIAXone SODIUM 2,000 MG/50 ML BAG IV SCH (14:18)
[2024-05-21] MEDS: ASPIRIN 81 MG ECTAB PO SCH (14:18)
[2024-05-21] MEDS: PERPHENAZINE 4 MG TAB PO SCH ×2 (14:19→20:40)
[2024-05-21] MEDS: LEVOTHYROXINE SODIUM 175 MCG TABLET PO SCH (14:19)
--- NOTE | 2024-05-21 14:19 | Pharmacy Report ---
Pharmacy Glycemic Short Note 2 - Date of Service May 21, 2024 - Glycemic Short BSG Results (Last 24 hours): 05/21/24 05/21/24 05/21/24 05:29 12:11 14:04 Glucose 74 POC Glucose 126 H 87 OUTPATIENT ANTIDIABETIC REGIMEN: * Metformin 500 mg BID HbA1c: pending for 05/22/24 ASSESSMENT: * 64 y/o M admitted for Sepsis/Pneumonia early today. Patient has well controlled Type 2 diabetes managed only with oral Metformin at home. * Pharmacy consulted for glycemic management today. Holding Metformin for now. * BSGs are within goal and do not anticipate it to trend up significantly since no steroids on board currently. * Basal not ordered. Will re-assess this tomorrow. * Novolog ordered with stress between 1 and 2 parameters. PLAN FOR INPATIENT GLYCEMIC CONTROL: * Hold outpatient oral diabetes medications * Basal insulin * None * Bolus insulin * NovoLog per scale ACHS or Q6hrs while NPO * Goal Range: Low 120 mg/dL - High 150 mg/dL * Correction Factor: 40 mg/dL/unit * Nutritional / Prandial insulin per carb ratio of 1 unit per 15 grams CHO consumed
[2024-05-21] MEDS: DIVALPROEX EXTENDED RELEASE 500 MG TAB PO SCH ×2 (14:38→20:43)
[2024-05-21] MEDS: LORATADINE 10 MG TAB PO SCH (14:38)
[2024-05-21] MEDS: buPROPion SR 150 MG TABCR PO SCH (14:38)
[2024-05-21] MEDS: FINASTERIDE 5 MG TAB PO SCH (14:38)
[2024-05-21] MEDS: busPIRone 15 MG TAB PO SCH (14:38)
[2024-05-21] MEDS: ziprasidone HCL 80 MG CAP PO SCH (14:39)
[2024-05-21 15:08] LABS: BUN Creatinine Ratio 11.8 (10-20); Calcium 8.9 mg/dl (8.6-10.3); Creatinine Clr Calc Pharmacy 98.7 ml/min; Potassium 4.4 mmol/L (3.5-5.1)
--- NOTE | 2024-05-21 17:10 | Electrocardiogram Report ---
Test Reason : Blood Pressure : */* mmHG Vent. Rate : 87 BPM Atrial Rate : 87 BPM P-R Int : 216 ms QRS Dur : 154 ms QT Int : 406 ms P-R-T Axes : 9 -75 45 degrees QTcB Int : 488 ms Sinus rhythm with 1st degree A-V block Right bundle branch block Left anterior fascicular block Bifascicular block Abnormal ECG When compared with ECG of 21-May-2024 05:41, Minimal criteria for Septal infarct are no longer Present Confirmed by Negrito Dailey ([id number]) on 05/21/2024 5:09:30 PM Referred By: REFERRED SELF Confirmed By: Negrito Dailey
[2024-05-21] MEDS: POLYETHYLENE (MIRALAX) 17 GM PACK PO PRN (18:27)
[2024-05-21] MEDS: MONTELUKAST SODIUM 10 MG TABLET PO SCH (20:42)
[2024-05-21] MEDS: PRAVASTATIN SOD 20 MG TAB PO SCH (20:42)
[2024-05-21 20:50] LABS: BUN Creatinine Ratio 9.6 (10-20); Calcium 8.2 mg/dl (8.6-10.3); Creatinine Clr Calc Pharmacy 65.8 ml/min; Potassium 4.2 mmol/L (3.5-5.1)
[2024-05-22 02:28] LABS: BUN Creatinine Ratio 11.8 (10-20); Calcium 8.4 mg/dl (8.6-10.3); Creatinine Clr Calc Pharmacy 80.7 ml/min
--- NOTE | 2024-05-22 07:18 | Hospitalist Progress Note ---
Date of Service May 22, 2024 Assessment & Plan (1) Sepsis: (2) Hyponatremia: (3) CKD (chronic kidney disease): (4) Hypertension: (5) Lymphedema: (6) BPH with obstruction/lower urinary tract symptoms: (7) Type 2 diabetes mellitus: (8) Schizophrenia: (9) Hyperlipidemia: (10) Hypothyroidism: (11) GERD (gastroesophageal reflux disease): (12) Bipolar 1 disorder: (13) Asthma: Plan Lam Wong is a 64-year-old male with a past medical history notable bipolar 1 disorder, asthma, GERD, CKD stage II, hypothyroidism, hypertension, hyperlipidemia, schizoaffective disorder, first-degree AV block, T2DM, BPH, and schizophrenia who presented to the ED for evaluation of fever, cough, congestion, recent history of diarrhea, who was admitted for further evaluation of sepsis meeting SIRS criteria. #Sepsis/?Pneumonia - SIRS criteria met: Leukocytosis + Tachycardia - Blood culture results pending - Abx: Ceftriaxone + Doxycycline - CBC QAM Urinalysis: unremarkable Negative respiratory BioFIRE CXR: Hyperinflation/Hypertransparency of the bilateral lung savage VBG: notable for pH 7.48 and pCO2 33 #Hyponatremia - NSS bolus + maintenance - BMP Q6Hr once + QAM #Hypomagnesemia - 3 units of Magnesium - Mg level QAM once if resolved #Diabetes - Glucose checks + sliding scale insulin - HbA1C Hold metformin #Chronic Conditions Allergic rhinorrhea/conjunctivitis: Loratadine Anxiety: Bupropion, Buspirone, Clonazepam Asthma: Albuterol, Fluticasone-Salmeterol (hold), Montelukast Bipolar I: Valproate BPH: Finasteride CKD II: Monitor Cr GERD: Famotidine (hold), Omeprazole (hold) Hyperlipidemia: Pravastatin Hypertension: Lisinopril (hold) Hypothyroidism: Levothyroxine Lymphedema: Furosemide x2 weekly with potassium chloride (per patient) ( hold) Schizophrenia: Perphenazine, Ziprasidone Dispo: Med Tele DVT PPx: Ambulation Diet: Low Carb Code: Full Code Admission and Anticipated Discharge Date Admission Date: May 21, 2024 Results & Data Results & Data Vital Signs (Past 12 Hours) Vital Signs Temp Pulse Pulse Resp BP Pulse Ox O2 Del Method 05/22/24 07:07 73 05/22/24 03:54 36.8 C 68 16 128/77 95 Room Air 05/21/24 22:44 36.8 C 70 18 125/80 96 Room Air 05/21/24 19:42 36.7 C 76 18 125/79 91 Room Air (1) Sepsis Sepsis acute organ dysfunction status: without acute organ dysfunction Sepsis type: sepsis due to unspecified organism Qualified Code(s): A41.9 - Sepsis, unspecified organism (8) Schizophrenia Schizophrenia type: unspecified Qualified Code(s): F20.9 - Schizophrenia, unspecified (13) Asthma Asthma complication type: unspecified Asthma persistence: unspecified Asthma severity: mild Qualified Code(s): J45.909 - Unspecified asthma, uncomplicated
[2024-05-22 07:31] LABS: Basophils # (auto) 0.01 K/uL (0.00-0.20); Basophils % (auto) 0.2 %; Eosinophils # (auto) 0.11 K/uL (0.00-0.50); Eosinophils % (auto) 1.9 %; Hematocrit (blood only) 38.3 % (42.0-52.0); Hemoglobin 12.5 g/dl (14.0-18.0); Immature Granulocytes # (auto) 0.01 K/uL (0.01-0.20); Immature Granulocytes % (auto) 0.2 %; Lymphocytes % (auto) 40.4 %; Mean Corpuscular Hemoglobin 25.9 pg (25.0-34.0); Mean Corpuscular Hgb Conc 32.6 g/dL (32.0-36.0); Mean Corpuscular Volume 79.3 fL (80.0-100.0); Mean Platelet Volume 8.6 fL (9.4-12.4); Monocytes # (auto) 0.49 K/uL (0.11-0.59); Monocytes % (auto) 8.6 %; Neutrophils # (auto) 2.77 K/uL (1.40-6.50); Neutrophils % (auto) 48.7 %; Platelet Count 224 K/uL (130-400); RDW Coefficient of Variation 15.4 % (11.5-14.5); Red Blood Count 4.83 M/uL (4.70-6.10); White Blood Count 5.69 K/ul (4.8-10.8)
[2024-05-22 07:42] LABS: BUN Creatinine Ratio 11.8 (10-20); Calcium 8.4 mg/dl (8.6-10.3); Creatinine Clr Calc Pharmacy 88.3 ml/min; Magnesium 2.1 mg/dl (1.7-2.4)
[2024-05-22 08:06] VITALS: TEMP 97.5
--- NOTE | 2024-05-22 09:55 | Pharmacy Report ---
Pharmacy Glycemic Short Note 2 - Date of Service May 22, 2024 - Glycemic Short BSG Results (Last 24 hours): 05/21/24 05/21/24 05/21/24 12:11 14:04 14:39 Glucose 115 H POC Glucose 126 H 87 05/21/24 05/21/24 05/21/24 16:22 20:03 20:45 Glucose 95 POC Glucose 104 H 85 05/22/24 05/22/24 05/22/24 01:55 07:05 07:22 Glucose 96 118 H POC Glucose 112 H OUTPATIENT ANTIDIABETIC REGIMEN: * Metformin 500 mg BID HbA1c: 5.5% on 05/22/24 ASSESSMENT: 05/22 * Patient did not require any insulin yesterday as all BSGs were within or below goal range. * Fasting BSG was 112mg/dL this morning. No need to add basal insulin at this time. Will remove CR parameter and will just keep a very loose CF in case BSGs would rise since metformin is being held. 05/21 * 64 y/o M admitted for Sepsis/Pneumonia early today. Patient has well controlled Type 2 diabetes managed only with oral Metformin at home. * Pharmacy consulted for glycemic management today. Holding Metformin for now. * BSGs are within goal and do not anticipate it to trend up significantly since no steroids on board currently. * Basal not ordered. Will re-assess this tomorrow. * Novolog ordered with stress between 1 and 2 parameters. PLAN FOR INPATIENT GLYCEMIC CONTROL: * Hold outpatient oral diabetes medications * Basal insulin * None * Bolus insulin * NovoLog per scale ACHS or Q6hrs while NPO * Goal Range: Low 120 mg/dL - High 150 mg/dL * Correction Factor: 40 mg/dL/unit * no CHO ratio needed
[2024-05-22 10:35] LABS: Estimated Average Glucose 111 mg/dl; Hemoglobin A1C 5.5 % (4.5-5.6)
[2024-05-22] MEDS ORDERED: HYDROCORTISONE 1% CRM 30 GM TUBE EXT PRN (10:47)
[2024-05-22 11:12] VITALS: RESP 15; O2SAT 94
[2024-05-22] MEDS: CARBOHYDRATES FOR HYPOGLYCEMIA PO PRN (11:26)
[2024-05-22] MEDS: PNEUMOCOCCAL VACCINE (PCV20) 20-VAL CONJ-DIP CRM/PF 0.5 ML SYR IM ONE (11:33)
[2024-05-22 12:27] VITALS: BP 128/77; PULSE 88
--- NOTE | 2024-05-22 12:55 | Discharge Summary ---
Date of Service May 22, 2024 Admission HPI Per Admitting Provider Lam Wong is a 64-year-old male with a past medical history notable bipolar 1 disorder, asthma, GERD, CKD stage II, hypothyroidism, hypertension, hyperlipidemia, schizoaffective disorder, first-degree AV block, T2DM, BPH, and schizophrenia who presented to the ED for evaluation of fever that started around 02:00. He states that he woke up feeling unwell with fevers, chills, despite wearing a heavy coat and using blankets, and rigors. He supports having nasal congestion, runny nose, cough and some nausea during this timeframe. During this time, he checked his blood sugar, which he considered normal. He p roceeded to take two tablets of acetaminophen. After two hours of unresolved symptoms, he called for EMS. On arrival, he endorsed that he felt weak; however, this has markedly improved. He mentioned having several days of diarrhea, than have since resolved prior to his febrile episode today that was without blood or abdominal pain and has returned for formed stool yesterday. He had some intermittent mild nausea during this time, without emesis. Additionally, he had a mild cough without shortness of breath, chest pain, or dyspnea with movement. He denies urinary symptoms. He supports that he generally has a low sodium level. He mentioned having bug bites on his forearms that he noticed several days ago. Admission Exam Per Admitting Provider Constitutional: Lying comfortably in bed. In no apparent distress. Cardiovascular: Tachycardic. S1 and S2 appreciated. No rubs, murmurs, or gallops noted Respiratory: Lungs are clear to auscultation bilaterally, although lung sounds diminished diffusely. No wheezes, crackles, or rhonchi appreciated. No accessory respiratory muscle use. Conversational without shortness of breath. Abdomen: Normoactive bowel sounds. Soft, non-distended abdomen. No tenderness to palpation. No organomegaly. Integumentary: Bilateral hands appear erythematous compared to forearms without bites appreciated. Right forearm near wrist small laceration with dried blood. Bilateral lower extremity non-pitting edema. Principal Diagnosis Sepsis Discharge Exam Constitutional: well-appearing, no acute distress HEENT: NCAT, no conjunctival injection CV: regular rhythm, no murmur appreciated, extremities well-perfused, no LE edema Resp: CTABL, no wheezes/rales/rhonchi appreciated, no increased work of breathing GI: soft, nondistended, nontender, BS normoactive MSK: no gross deformities appreciated Skin: warm, dry, no rash appreciated Neuro: alert, oriented, no focal neurologic deficit appreciated Discharge Data Allergies Allergy/AdvReac Type Severity Reaction Status Date / Time No Known Allergies Allergy Verified 05/21/24 09:33 Consultations 05/21/24 07:40 ED Decision to Admit Stat Ordered Studies Chest X-Ray 05/21/24 05:29 EXAM: XR chest 1V portable CLINICAL HISTORY: FEVER SOB JMF TECHNIQUE: An X-ray image of the chest is obtained in 1 AP projection. COMPARISON: 12/22/2023 CR. FINDINGS: Pulmonary Parenchyma: Bilateral hypertransradiant/hyperinflated lung savage suggestive of chronic obstructive airway disease. No evidence of consolidation, collapse. No pulmonary nodules are identified. Right costophrenic recess is normal no pleural effusion/pleural thickening seen. Left costophrenic recess is obscured. Heart and Mediastinum: Cardiac shadow is minimally enlarged. No mediastinal widening or masses. No hilar or mediastinal lymphadenopathy. Bony Thorax: Mild scoliosis of thoracic spine. No fracture seen. Soft Tissues: Soft tissues overlying the chest wall are unremarkable. IMPRESSION: 1. Bilateral hypertransradiant/hyperinflated lung savage. COPD. 2. Comparing with the previous x-ray dated 12/22/2023 findings remain stable. Electronically signed by Chanelle Vincent 05-21-2024 07:18 AM Hospital Course (1) Sepsis: (2) Hyponatremia: (3) CKD (chronic kidney disease): (4) Hypertension: (5) Lymphedema: (6) BPH with obstruction/lower urinary tract symptoms: (7) Type 2 diabetes mellitus: (8) Schizophrenia: (9) Hyperlipidemia: (10) Hypothyroidism: (11) GERD (gastroesophageal reflux disease): (12) Bipolar 1 disorder: (13) Asthma: Dianna Wong is a 64-year-old male with a past medical history notable bipolar 1 disorder, asthma, GERD, CKD stage II, hypothyroidism, hypertension, hyperlipidemia, schizoaffective disorder, first-degree AV block, T2DM, BPH, and schizophrenia who presented to the ED for evaluation of fever, cough, congestion, recent history of diarrhea, who was admitted for further evaluation of sepsis meeting SIRS criteria. #Sepsis/?Pneumonia - SIRS criteria met: Leukocytosis + Tachycardia - Blood culture results negative. - Abx: Ceftriaxone + Doxycycline Urinalysis: unremarkable Negative respiratory BioFIRE CXR: Hyperinflation/Hypertransparency of the bilateral lung savage VBG: notable for pH 7.48 and pCO2 33 -Leukocytosis, fever, and tachycardia resolved at time of discharge. -Will discharge on 5-day course of Augmentin 875 twice daily. If not clinically better at PCP follow-up may consider adding on doxycycline. -Discourage use of azithromycin as patient had a prolonged QTc in the hospital and is on psych meds that may prolong his QT as well. #Hyponatremia - NSS bolus + maintenance -Stable at time of discharge. #Hypomagnesemia -Resolved with magnesium replacement. #Diabetes -Resume home meds at time of discharge. #Chronic Conditions Allergic rhinorrhea/conjunctivitis: Loratadine Anxiety: Bupropion, Buspirone, Clonazepam Asthma: Albuterol, Fluticasone-Salmeterol (hold), Montelukast Bipolar I: Valproate BPH: Finasteride CKD II: Monitor Cr GERD: Famotidine (hold), Omeprazole (hold) Hyperlipidemia: Pravastatin Hypertension: Lisinopril (hold) Hypothyroidism: Levothyroxine Lymphedema: Furosemide x2 weekly with potassium chloride (per patient) ( hold) Schizophrenia: Perphenazine, Ziprasidone Total Time Total Time Spent Total Time Spent (In Minutes): Please refer to attendings attestation Discharge Plan Discharge Items Patient Disposition: Home - Self-Care Reason For Visit: WEAKNESS, HYPONATREMIA, FEVER Discharge Diagnosis: fever, hyponatremia Activity: Resume your previous activity Non-emergency contact: Primary Care Provider Call non-emergency contact if: you have any medication questions, your pain is concerning for you and your temperature is above 101.5 Follow-up/Referrals: Yohannes Carrillo MD [Primary Care Provider] - 05/25/24 10:00 am (Hospital follow up on May 25 at 10 am.) Diet: Regular and Carb Consistent or DM2 Addtl Attending Provider Instructions: You were admitted to the hospital for fever and hyponatremia. You were treated with fluids and antibiotics and got better. A discharge summary will be sent to your primary care physician to ensure continuity of care. Please bring this discharge summary with you to your next office appointment so that your provider can review it at that time. Follow-up appointments: * Make a follow-up appointment with your PCP within the next week. It is very important that you follow up with them shortly after discharge from the hospital. * Keep all your follow-up appointments as already scheduled. If you cannot make an appointment, notify your provider. Medications: Your medication list has been reviewed and reconciled upon discharge to ensure accuracy and continuity of care. An updated list of all your medications is included with your hospital discharge paperwork. Please review this list closely, and make note of any changes. * We sent a new medication called Augmentin to your pharmacy. Take Augmentin 875 twice daily for 5 days. * If you have any issues filling these prescriptions, please call [phone] and ask to leave a message for Dr. Cabello. * Take your medications as instructed; do not skip a dose of your medicines. Make sure all of your doctors know every medicine you are taking (including [id number] medicines, vitamins, and supplements). Call your primary care provider before taking any new medicines (including over- the-counter medicines, vitamins, and supplements), because some of these may interact with your current medications, or may make your symptoms worse. Tell your primary care provider if you cannot afford your medications. CONTACT YOUR PRIMARY CARE PROVIDER if you experience any of the following: * Worsening of symptoms * Fever, chills, or fatigue * Difficulty following your treatment plan, or difficulty taking medications CALL 911 OR GO TO THE EMERGENCY DEPARTMENT if you experience any of the following: * Sudden, severe abdominal pain or nausea/vomiting * Severe chest pain, or chest pain that radiates (moves) to your jaw or arm * Sudden, severe shortness of breath or difficulty breathing Thank you for allowing us to participate in your care. Pending Studies at Discharge: No Stand-Alone Forms: My [employer] A[employer], Smoking Cessation Medications and DC Order Prescriptions: New amoxicillin-pot clavulanate 875-125 mg tablet 1 tab PO BID 5 Days Qty: 10 0RF Continued (DME) incontinence pad, liner, disp Pad See Rx Instructions .ROUTE .MEDSUPPLY Qty: 180 3RF Rx Instructions: Needs 2 dailly (DME) blood-glucose meter [OneTouch UltraMini] Kit See Rx Instructions .ROUTE .MEDSUPPLY Qty: 1 0RF Rx Instructions: use to test 4 times daily polyethylene glycol 3350 17 gram/dose powder 17 g PO BID PRN (Reason: Constipation) Qty: 238 3RF Rx Instructions: Unable to verify OTC meds at this date/time. fluticasone propionate [Allergy Relief (fluticasone)] 50 mcg/actuation spray,suspension 1 - 2 spray INTNAS DAILY PRN (Reason: Allergy Symptoms) Qty: 16 3RF Rx Instructions: administer into each nostril loratadine 10 mg tablet 10 mg PO QAM Qty: 90 3RF Rx Instructions: Unable to verify OTC meds at this date/time. metformin 500 mg tablet 500 mg PO BID Qty: 180 3RF lisinopril 10 mg tablet 10 mg PO QAM Qty: 90 3RF famotidine 20 mg tablet 20 mg PO BID Qty: 180 3RF montelukast 10 mg tablet 10 mg PO PM Qty: 90 3RF pravastatin 20 mg tablet 20 mg PO HS Qty: 90 3RF Rx Instructions: TAKE 1 TABLET ORALLY AT BEDTIME potassium chloride 10 mEq capsule, extended release 10 meq PO DAILY PRN (Reason: with furosemide ) Qty: 30 0RF Rx Instructions: to take with furosemide furosemide 20 mg tablet 20 mg PO DAILY PRN (Reason: edema) Qty: 30 0RF Rx Instructions: to take with worsening edema for two days (DME) OneTouch Ultra Test Strip See Rx Instructions .Route Qty: 100 1RF Rx Instructions: test once a day (DME) lancets 33 gauge misc See Rx Instructions .ROUTE .MEDSUPPLY Qty: 100 5RF Rx Instructions: Test once daily levothyroxine 50 mcg tablet 175 mcg PO QAM Qty: 135 1RF Rx Instructions: TAKES 3 1/2 TABS. fluticasone propion-salmeterol 250-50 mcg/dose blister with device 1 inh inhalation BID Qty: 60 3RF Rx Instructions: GENERIC aspirin 81 mg tablet,delayed release (DR/EC) 81 mg PO QAM Qty: 90 3RF Rx Instructions: Unable to verify OTC meds at this date/time. omeprazole 20 mg capsule,delayed release(DR/EC) 20 mg PO QAM Qty: 90 3RF Rx Instructions: TAKE 1 CAPSULE BY MOUTH EVERY MORNING albuterol sulfate 90 mcg/actuation HFA aerosol inhaler 2 puff INHALATION QID PRN (Reason: Shortness Of Breath) Qty: 18 3RF clonazepam 1 mg tablet 1 mg PO BID PRN (Reason: Unknown) ziprasidone HCl 40 mg capsule 40 mg PO BID Rx Instructions: TOTAL DOSE 120 MG--TAKES WITH 80 MG CAP. ziprasidone HCl 80 mg Capsule 80 mg PO BID Rx Instructions: TOTAL DOSE 120 MG--TAKES WITH 40 MG CAP. buspirone 30 mg Tablet 30 mg PO QAM Rx Instructions: PER PT "ONLY TAKE QAM". bupropion HCl 150 mg Tablet Sustained-Release 12 Hr 150 mg PO QAM acetaminophen [Tylenol 8 Hour] 650 mg Tablet Extended Release 650 - 1,300 mg PO DIRECTED PRN (Reason: Pain) Rx Instructions: Unable to verify OTC meds at this date/time. finasteride 5 mg tablet 5 mg PO DAILY Rx Instructions: TAKE 1 TABLET BY MOUTH DAILY meclizine 25 mg tablet 25 mg PO TID PRN (Reason: dizziness) Qty: 30 0RF perphenazine 4 mg tablet See Rx Instructions .ROUTE .COMPLEX Rx Instructions: Take 4mg by mouth in the morning and 8mg by mouth at bedtime sildenafil (pulm.hypertension) 20 mg tablet 20 - 80 mg PO UD PRN (Reason: Prior to activity) Rx Instructions: TAKE 1-4 TABLETS BY MOUTH ONE hour prior TO activity NEEDED Discharge Orders: Discharge Order (Routine); Ordered 05/22/24 Ordered By: Rome Tirado/Other Patient Handouts: Amoxicillin/Clavulanate Oral Tablet Admission Data Admit Date/Time: 05/21/24 08:46 Attending Provider: Sofya Norris Admit Provider: Rome Cabello Primary Care Provider: Yohannes Carrillo Other Providers: Negrito Roberson Other Interventions: Discharge Summary Assessment (RN) Last Done: 05/22/24 12:26 Supervising Physician Co-Signing Physician Notes Attending Physician Supervision Note: I independently interviewed and examined the patient and verified the pham history and physical, reviewed labs and image studies and agree with findings and care plan noted above. No concerns this am. Feels ready to go home. vitals noted nad heent nc at mmm breathing unlabored no accessory muscles good effort skin no rashes no pallor or icterus neuro no focal deficits. Sepsis with concern for pulmonary source - Biofire neg. BCx neg. WBC normalized. Procal normal - due to reported fever - will empirically treat with augmentin. Hyponatremia - h/o psychogenic polydipsia. Discussed adding salt in diet and limit free water intake. Else see resident documentation as noted. Total time by attending in discharge process - 25 min
== END 2024-05-22 13:40 | disposition home or self-care (01) | DRG 871 ==
LOC: ED 05:06 → INTOOBSV 08:46 → SUATTDRO 08:46 → EDINP 08:46 → 2S 12:20

== ENCOUNTER 2024-06-12 09:26 | Inpatient (IN) ==
[2024-06-12] MEDS: ACETAMINOPHEN 1,000 MG/100 ML VIAL IV STA (09:38)
[2024-06-12] MEDS: ONDANSETRON INJ 2 MG/ML 2 ML VIAL IV STA (09:38)
[2024-06-12] MEDS: SODIUM CHLORIDE 0.9% 1,000 ML IV ONE ×3 (09:38→11:35)
--- NOTE | 2024-06-12 09:41 | Emergency Department Note ---
Impression & Plan Sepsis, Fever, Diarrhea, Acute hyponatremia ED Provider Note NAME: LOU COLON AGE: 64 SEX: M : 1960 ARRIVES VIA: Ambulance INFORMANT: Patient, EMS ED PROVIDER(S): Yohannes Contreras DO CHIEF COMPLAINT: Fever HPI: The patient is a 64-year-old male who presented to the emergency department by ambulance for malaise. The patient states he has not been feeling well. He is had a dry cough. He also admits to having a fever. He was here for similar symptoms a few weeks ago. The patient denies having any chest pain. He denies having any headaches. He has no exposures as far as he knows. ROS: See above HPI for pertinent positives & negatives. A total of 10 systems reviewed and were otherwise negative. PAST MEDICAL HISTORY: See Below PAST SURGICAL HISTORY: See Below FAMILY HISTORY: See Below SOCIAL HISTORY: See Below HOME MEDICATIONS: See Below ALLERGIES: See Below VITALS: See Below PHYSICAL EXAMINATION: GENERAL: Patient is awake alert in no acute distress patient is resting comfortably and showing no signs of anxiety EYES: The conjunctivae are clear. The pupils are round and reactive. EARS, NOSE, MOUTH AND THROAT: The nose is without any evidence of any deformity. NECK: The neck is nontender and supple. RESPIRATORY: Diminished breath sounds are noted in the right lung field. There is no tachypnea or conversational dyspnea. CARDIOVASCULAR: Regular rate and rhythm noted there no murmurs rubs or gallops normal S1 normal S2. GASTROINTESTINAL: The abdomen is soft. Abdomen is nontender. MUSCULOSKELETAL/EXTREMITIES: There is no evidence of gross deformity full range of motion is noted in the hips and shoulders. SKIN: Skin is warm and dry. Trace pedal edema was noted bilaterally. Skin was warm and dry. NEUROLOGIC: Patient is awake alert and oriented x3 strength is symmetric. MEDICAL DECISION MAKING: The patient is a 64-year-old male who recently was in our facility for similar complaints. He returns today because of fever and not feeling well. The patient was found to be hypotensive. He had a workup under sepsis bundle. He was treated with IV fluids in the emergency department. He was treated with multiple IV fluid boluses but continued to have hypotension. He seemed to be tolerating it well but because of prolonged hypotension a central line was placed and IV pressors were ordered. I discussed the patient's laboratory and radiographic studies with him. He had no specific complaints. He did not complain of any back pain or abdominal pain but further radiographic studies were obtained to ensure there is no other reason why the patient would be persistently hypotensive. He was treated with IV steroids. I discussed his condition with the on-call [facility] hospitalist. They have agreed to evaluate the patient in the emergency department. Stool studies are ordered but they have not been able to be obtained yet. Triage Nursing notes reviewed. Prior medical records reviewed Vital Signs: reviewed and remarkable for hypotension. Differential diagnosis: Viral syndrome, otitis, pharyngitis, pneumonia, influenza, meningitis, urinary tract infection, sepsis, bacteremia, as well as other pathologies. ER treatment provided: See below Diagnostics interpreted by me: ECG: EKG was obtained in the emergency department. My interpretation is sinus tachycardia at 117 bpm. Right bundle branch block pattern was noted. This was compared to a tracing from May 21, 2024. No changes were noted. Cardiac Monitoring: An order was placed for continuous cardiac monitoring. The monitor shows a rate of 98 bpm with sinus rhythm. Laboratory studies: As stated above and show below. Imaging studies: See below. Radiographic imaging was reviewed by myself Consultation(s): I discussed this case with Dr. Garcia who is on-call for the [facility] group. ED COURSE: Procedures: Femoral Central Venous Catheter Indication: Sepsis Catheter Type: Triple-lumen Location: Right femoral vein Verbal consent was obtained after the risks and benefits were explained, including but not limited to intra-abdominal injury, vessel injury, bleeding, scarring, infection, pain, and bone/joint/nerve damage. At this time, the risks of the procedure are less than the risks of NOT performing the procedure. A time out was taken and the correct patient and site identified. The patient was placed in the supine position and the skin was prepped in the standard fashion with chlorhexidine and full sterile drapes applied. The proper landmarks were identified with ultrasound, anesthetized with 1% lidocaine without epinephrine, and the needle was inserted through the skin in the standard fashion. The needle was carefully advanced into blood vessel lumen with ultrasound guidance. The guidewire was placed uneventfully. The vessel is dilated and the catheter was placed. It was sutured into position. There was good blood return from all ports. The patient tolerated the procedure well and there were no complications. Critical Care: I have personally spent greater than 45 minutes of critical care time in the direct management of this patient. This includes bedside care, interpretation of diagnostic studies, and testing, discussion with consultants, patient, and family members, and other required patient management activities. This 45 minutes is in excess of all separately billable procedures. Past Med/Surg History Problem List (Updated 06/12/24 @ 14:29 by Yohannes Contreras DO) Diarrhea (Acute) Fever (Acute) Diarrheal disease Acute hyponatremia (Acute) Hypomagnesemia (Acute) Weakness (Acute) Hyponatremia (Acute) Fever (Acute) Sepsis (Acute) Leukocytosis (Acute) Hip pain Lymphedema Hyponatremia (Acute) COVID-19 (Acute) Current use of proton pump inhibitor BPH with obstruction/lower urinary tract symptoms Erectile dysfunction Venous insufficiency (chronic) (peripheral) (Acute) Type 2 diabetes mellitus (Acute) Schizophrenia (Acute 05/20/12) Osteoarthritis of knee (Acute) Nocturia more than twice per night (Acute) Lymphedema of lower extremity (Acute) left Lumbosacral radiculopathy at L5 (Acute) 1st degree AV block History of colon polyps Osteoarthritis of right hip Schizoaffective disorder S/P total hip arthroplasty Cataract Hyperlipidemia Hypothyroidism (05/20/12) Hypertension GERD (gastroesophageal reflux disease) CKD (chronic kidney disease) Stage 2 Bipolar 1 disorder Asthma (Acute) used rescue inhaler "recently" Medical History Hypoxia Pneumonia Hx of basal cell carcinoma Encounter for pre-operative examination History of blood transfusion after left TKA Psychogenic polydipsia LOW (dyspnea on exertion) Diabetes mellitus, type 2 NIDDM BPH (benign prostatic hyperplasia) Right bundle branch block with left anterior fascicular block Bifascicular block - had ECHO 09/20/21 Follows with PCP Urinary incontinence Hearing deficit Sleep apnea NO DEVICE Schizoaffective disorder, bipolar type Surgical History History of right cataract extraction Left eye also done History of hip replacement R hip 11/2021 [place] teeth extracted History of total knee replacement LEFT History of esophagogastroduodenoscopy (EGD) History of colonoscopy History of tonsillectomy Family History Unknown Hypertension Mother Hypertension Sister Diabetes Other No family history of adverse response to anesthesia Denies family history of Ovarian cancer Prostate cancer Myocardial infarction Breast cancer Colorectal cancer Social History Smoking Status: Never smoker Second Hand Exposure: No; Do You Dip or Chew Tobacco: No; Hx Alcohol Use: No Hx Substance Use: No Preferred Language: Gambian Communication Ability: Effective Visual Impairment: No Limitations Hearing Ability: Normal Reservations Manager Required: No Beliefs That Will Affect Care: None marital status: Single Current Living Situation: Alone Current Living Situation Comment: HAS [employer] 35 HOURS PER WEEK current occupational status: unemployed How many Children do You have: 0 Feels Safe at Home: Yes Seatbelt Use: always Assistive Devices: Cane, Glasses and Hearing Aid - Bilateral Allergies Allergies Allergy/AdvReac Type Severity Reaction Status Date / Time No Known Allergies Allergy Verified 05/26/24 13:32 Home Meds Home Medications Medication Instructions Recorded Confirmed buspirone 30 mg tablet 30 mg PO QAM 01/26/18 06/12/24 ziprasidone HCl 80 mg capsule 80 mg PO BID 01/26/18 06/12/24 ziprasidone HCl 40 mg capsule 40 mg PO BID 05/27/19 06/12/24 bupropion HCl 150 mg tablet,12 hr 150 mg PO QAM 09/13/20 06/12/24 sustained-release acetaminophen 650 mg 650 - 1,300 mg PO DIRECTED PRN 09/19/21 06/12/24 tablet,extended release (Tylenol 8 Pain Hour) clonazepam 1 mg tablet 1 mg PO BID PRN Unknown 02/08/22 06/12/24 finasteride 5 mg tablet 5 mg PO DAILY 09/10/23 06/12/24 perphenazine 4 mg tablet 4 - 8 mg PO UD 05/21/24 06/12/24 aspirin 81 mg tablet,delayed 81 mg PO UD 06/12/24 06/12/24 release methocarbamol 500 mg tablet 500 mg PO UD 06/12/24 06/12/24 pravastatin 20 mg tablet 20 mg PO UD 06/12/24 06/12/24 Previous Rx's Medication Instructions Recorded incontinence pad, liner, disp #180 ea 06/11/19 blood-glucose meter (OneTouch #1 ea 07/06/19 UltraMini kit) polyethylene glycol 3350 17 17 g PO BID PRN Constipation #238 06/28/23 gram/dose oral powder grams fluticasone propionate 50 1 - 2 spray intranasal DAILY PRN 07/03/23 mcg/actuation nasal Allergy Symptoms #16 grams spray,suspension (Allergy Relief (fluticasone)) loratadine 10 mg tablet 10 mg PO QAM #90 tabs 07/31/23 metformin 500 mg tablet 500 mg PO BID #180 tabs 08/26/23 lisinopril 10 mg tablet 10 mg PO QAM #90 tabs 11/10/23 famotidine 20 mg tablet 20 mg PO BID #180 tabs 11/21/23 montelukast 10 mg tablet 10 mg PO PM #90 tabs 11/26/23 potassium chloride 10 mEq 10 meq PO DAILY PRN with 01/27/24 capsule,extended release furosemide #30 caps furosemide 20 mg tablet 20 mg PO DAILY PRN edema #30 tabs 02/03/24 blood sugar diagnostic (OneTouch #100 ea 02/10/24 Ultra Test strips) lancets 33 gauge #100 ea 02/10/24 fluticasone 250 mcg-salmeterol 50 1 inh inhalation BID #60 ea 03/17/24 mcg/dose blistr powdr for inhalation omeprazole 20 mg capsule,delayed 20 mg PO QAM #90 caps 05/04/24 release albuterol sulfate 90 mcg/actuation 2 puff inhalation QID PRN 05/06/24 aerosol inhaler Shortness Of Breath #18 grams levothyroxine 50 mcg tablet 175 mcg (3.5 x 50 mcg) PO QAM #135 05/27/24 tabs meclizine 25 mg tablet 25 mg PO TID PRN dizziness #30 tabs 05/29/24 sildenafil (pulm.hypertension) 20 20 - 80 mg (1 - 4 x 20 mg) PO UD 06/12/24 mg tablet PRN Prior to activity #45 tabs Results & Data (ED) Vital Signs Vital Signs - 24 hr 06/12/24 09:46 06/12/24 09:47 06/12/24 10:11 Temperature 38.4 C H Temperature Source Oral Pulse Rate 114 H 113 H Pulse Rate [Apical] 110 H Respiratory Rate 26 H 24 Respiratory Depth Normal Blood Pressure 107/82 Blood Pressure [Right Arm] 97/69 L Blood Pressure Mean 90 Blood Pressure Mean [Right Arm] 78 Pulse Oximetry 91 92 Oxygen Delivery Method Room Air Nasal Cannula Oxygen Flow Rate 2 Sepsis Recent Fever Within 48 Hours Yes Sepsis New/Unexplained Change in Mental Status No Sepsis Action Taken by Nursing Physician Notified 06/12/24 10:27 06/12/24 10:51 06/12/24 11:06 Temperature 37.5 C Temperature Source Oral Pulse Rate Pulse Rate [Apical] 109 H 114 H 111 H Respiratory Rate 17 17 21 Respiratory Depth Blood Pressure Blood Pressure [Right Arm] 92/69 L 83/63 L 85/67 L Blood Pressure Mean Blood Pressure Mean [Right Arm] 76 69 73 Pulse Oximetry 96 95 97 Oxygen Delivery Method Nasal Cannula Nasal Cannula Nasal Cannula Oxygen Flow Rate 2 2 2 Sepsis Recent Fever Within 48 Hours Sepsis New/Unexplained Change in Mental Status Sepsis Action Taken by Nursing 06/12/24 11:22 06/12/24 11:34 06/12/24 11:55 Temperature Temperature Source Pulse Rate Pulse Rate [Apical] 107 H 108 H 102 H Respiratory Rate 26 H 26 H 22 Respiratory Depth Blood Pressure Blood Pressure [Right Arm] 88/59 L 89/55 L 80/57 L Blood Pressure Mean Blood Pressure Mean [Right Arm] 68 66 64 Pulse Oximetry 95 99 98 Oxygen Delivery Method Nasal Cannula Nasal Cannula Nasal Cannula Oxygen Flow Rate 2 2 2 Sepsis Recent Fever Within 48 Hours Sepsis New/Unexplained Change in Mental Status Sepsis Action Taken by Nursing 06/12/24 12:00 06/12/24 12:36 06/12/24 12:45 Temperature Temperature Source Pulse Rate Pulse Rate [Apical] 99 H 105 H 100 H Respiratory Rate 22 20 14 Respiratory Depth Blood Pressure Blood Pressure [Right Arm] 95/55 L 77/50 L 86/64 L Blood Pressure Mean Blood Pressure Mean [Right Arm] 68 59 71 Pulse Oximetry 99 97 97 Oxygen Delivery Method Nasal Cannula Nasal Cannula Nasal Cannula Oxygen Flow Rate 2 2 2 Sepsis Recent Fever Within 48 Hours Sepsis New/Unexplained Change in Mental Status Sepsis Action Taken by Nursing 06/12/24 13:05 06/12/24 13:20 06/12/24 13:33 Temperature 37.7 C H 37.8 C H 37.9 C H Temperature Source Berman Cath ( Temp Sensing) Berman Cath ( Temp Sensing) Berman Cath ( Temp Sensing) Pulse Rate Pulse Rate [Apical] 103 H 103 H 100 H Respiratory Rate 15 24 22 Respiratory Depth Blood Pressure Blood Pressure [Right Arm] 98/66 L 85/63 L 92/67 L Blood Pressure Mean Blood Pressure Mean [Right Arm] 76 70 75 Pulse Oximetry 97 94 94 Oxygen Delivery Method Nasal Cannula Nasal Cannula Nasal Cannula Oxygen Flow Rate 2 2 2 Sepsis Recent Fever Within 48 Hours Sepsis New/Unexplained Change in Mental Status Sepsis Action Taken by Nursing 06/12/24 13:50 06/12/24 14:12 Temperature 37.9 C H 37.8 C H Temperature Source Berman Cath ( Temp Sensing) Berman Cath ( Temp Sensing) Pulse Rate Pulse Rate [Apical] 99 H 98 H Respiratory Rate 18 23 Respiratory Depth Blood Pressure Blood Pressure [Right Arm] 94/73 L 98/65 L Blood Pressure Mean Blood Pressure Mean [Right Arm] 80 76 Pulse Oximetry 95 96 Oxygen Delivery Method Nasal Cannula Nasal Cannula Oxygen Flow Rate 2 2 Sepsis Recent Fever Within 48 Hours Sepsis New/Unexplained Change in Mental Status Sepsis Action Taken by Alf Medications Current Medication List: was personally reviewed by me Laboratory Data Attestation: I reviewed the patient's lab results. 06/12/24 09:36 06/12/24 09:36 Lab Results 06/12/24 06/12/24 06/12/24 Range/Units 09:33 09:36 09:51 WBC 8.03 (4.8-10.8) K/ul RBC 5.75 (4.70-6.10) M/uL Hgb 15.1 (14.0-18.0) g/dl Hct 44.7 (42.0-52.0) % MCV 77.7 L (80.0-100.0) fL MCH 26.3 (25.0-34.0) pg MCHC 33.8 (32.0-36.0) g/dL RDW Std Deviation 42.2 (36.4-46.3) fL RDW Coeff of Joey 15.1 H (11.5-14.5) % Plt Count 300 (130-400) K/uL MPV 9.1 L (9.4-12.4) fL Immature Gran % (Auto) 0.2 % Neut % (Auto) 94.7 % Lymph % (Auto) 1.9 % [place] % (Auto) 3.0 % Eos % (Auto) 0.1 % Baso % (Auto) 0.1 % Neut # (Auto) 7.60 H (1.40-6.50) K/uL Lymph # (Auto) 0.15 L (1.20-3.40) K/uL [place] # (Auto) 0.24 (0.11-0.59) K/uL Eos # (Auto) 0.01 (0.00-0.50) K/uL Baso # (Auto) 0.01 (0.00-0.20) K/uL Immature Gran # (Auto) 0.02 (0.01-0.20) K/uL PT 10.2 (9.0-12.0) Seconds INR 0.9 (0.9-1.1) APTT 28 (21-31) Seconds PTT Ratio 1.0 VBG pH 7.43 H (7.36-7.41) VBG pCO2 28 L (38-50) mmHg VBG pO2 69 mmHg VBG HCO3 19 mmol/L VBG O2 Saturation 95.1 % VBG Base Excess -4.4 mEq/L Sodium 128 L (136-145) mmol/L Potassium 4.4 (3.5-5.1) mmol/L Chloride 99 (98-107) mmol/L Carbon Dioxide 20 L (21-32) mmol/L Anion Gap 9 (3-11) BUN 16 (6-23) mg/dl Creatinine 0.85 (0.6-1.4) mg/dl Est Cr Clr Drug Dosing 88.3 ml/min eGFR 95.83 BUN/Creatinine Ratio 18.8 (10-20) Glucose 123 H (70-99(Fasting)) mg/dl Osmolality 270 L (280-300) mOsm/kg Lactate 2.0 (0.4-2.0) mmol/L Calcium 8.7 (8.6-10.3) mg/dl Magnesium 1.5 L (1.7-2.4) mg/dl Total Bilirubin 0.4 (0.2-1.0) mg/dl Direct Bilirubin 0.0 (0-0.2) mg/dl AST 16 (13-39) U/L ALT 15 (7-52) U/L Alkaline Phosphatase 68 (34-104) U/L Troponin I High Sens 6.1 (0-20) pg/ml Total Protein 6.5 (6.0-8.3) gm/dl Albumin 3.8 (3.4-5.0) gm/dl Procalcitonin 0.17 (0-0.5) ng/ml Random Cortisol 25.30 mcg/dl Urine Color Urine Appearance (Clear) Urine pH (4.5-7.5) Ur Specific [place] (1.000-1.030) Urine Protein (Negative) Urine Glucose (UA) (Negative) Urine Ketones (Negative) Urine Blood (Negative) Urine Nitrite (Negative) Urine Bilirubin (Negative) Urine Urobilinogen (Negative) Ur Leukocyte Esterase (Negative) Urine Osmolality (500-800) mOsm/kg Ur Random Sodium mmol/L Adenovirus (PCR) Not Detected (NotDetected) B. pertussis DNA (PCR) Not Detected (NotDetected) B.parapertussis DNA PCR Not Detected (NotDetected) Lyme Disease Screen Negative (Negative) C. pneumoniae DNA (PCR) Not Detected (NotDetected) Coronavirus OC43 (PCR) Not Detected (NotDetected) Coronavirus HKU1 (PCR) Not Detected (NotDetected) Coronavirus 229E (PCR) Not Detected (NotDetected) SARS-CoV-2 (PCR) Not Detected (NotDetected) Coronavirus NL63 (PCR) Not Detected (NotDetected) Human Metapneumovir PCR Not Detected (NotDetected) Influenza Type A (PCR) Not Detected (NotDetected) Influenza Type B (PCR) Not Detected (NotDetected) M. pneumoniae (PCR) Not Detected (NotDetected) Parainfluenza 1 (PCR) Not Detected (NotDetected) Parainfluenza 2 (PCR) Not Detected (NotDetected) Parainfluenza 3 (PCR) Not Detected (NotDetected) Parainfluenza 4 (PCR) Not Detected (NotDetected) RSV (PCR) Not Detected (NotDetected) Entero/Rhino (PCR) Not Detected (NotDetected) 06/12/24 Range/Units 12:42 WBC (4.8-10.8) K/ul RBC (4.70-6.10) M/uL Hgb (14.0-18.0) g/dl Hct (42.0-52.0) % MCV (80.0-100.0) fL MCH (25.0-34.0) pg MCHC (32.0-36.0) g/dL RDW Std Deviation (36.4-46.3) fL RDW Coeff of Joey (11.5-14.5) % Plt Count (130-400) K/uL MPV (9.4-12.4) fL Immature Gran % (Auto) % Neut % (Auto) % Lymph % (Auto) % [place] % (Auto) % Eos % (Auto) % Baso % (Auto) % Neut # (Auto) (1.40-6.50) K/uL Lymph # (Auto) (1.20-3.40) K/uL [place] # (Auto) (0.11-0.59) K/uL Eos # (Auto) (0.00-0.50) K/uL Baso # (Auto) (0.00-0.20) K/uL Immature Gran # (Auto) (0.01-0.20) K/uL PT (9.0-12.0) Seconds INR (0.9-1.1) APTT (21-31) Seconds PTT Ratio VBG pH (7.36-7.41) VBG pCO2 (38-50) mmHg VBG pO2 mmHg VBG HCO3 mmol/L VBG O2 Saturation % VBG Base Excess mEq/L Sodium (136-145) mmol/L Potassium (3.5-5.1) mmol/L Chloride (98-107) mmol/L Carbon Dioxide (21-32) mmol/L Anion Gap (3-11) BUN (6-23) mg/dl Creatinine (0.6-1.4) mg/dl Est Cr Clr Drug Dosing ml/min eGFR BUN/Creatinine Ratio (10-20) Glucose (70-99(Fasting)) mg/dl Osmolality (280-300) mOsm/kg Lactate (0.4-2.0) mmol/L Calcium (8.6-10.3) mg/dl Magnesium (1.7-2.4) mg/dl Total Bilirubin (0.2-1.0) mg/dl Direct Bilirubin (0-0.2) mg/dl AST (13-39) U/L ALT (7-52) U/L Alkaline Phosphatase (34-104) U/L Troponin I High Sens (0-20) pg/ml Total Protein (6.0-8.3) gm/dl Albumin (3.4-5.0) gm/dl Procalcitonin (0-0.5) ng/ml Random Cortisol mcg/dl Urine Color Yellow Urine Appearance Clear (Clear) Urine pH 7.0 (4.5-7.5) Ur Specific [place] 1.036 H (1.000-1.030) Urine Protein Negative (Negative) Urine Glucose (UA) Negative (Negative) Urine Ketones Negative (Negative) Urine Blood Negative (Negative) Urine Nitrite Negative (Negative) Urine Bilirubin Negative (Negative) Urine Urobilinogen Negative (Negative) Ur Leukocyte Esterase Negative (Negative) Urine Osmolality 301 L (500-800) mOsm/kg Ur Random Sodium 10 mmol/L Adenovirus (PCR) (NotDetected) B. pertussis DNA (PCR) (NotDetected) B.parapertussis DNA PCR (NotDetected) Lyme Disease Screen (Negative) C. pneumoniae DNA (PCR) (NotDetected) Coronavirus OC43 (PCR) (NotDetected) Coronavirus HKU1 (PCR) (NotDetected) Coronavirus 229E (PCR) (NotDetected) SARS-CoV-2 (PCR) (NotDetected) Coronavirus NL63 (PCR) (NotDetected) Human Metapneumovir PCR (NotDetected) Influenza Type A (PCR) (NotDetected) Influenza Type B (PCR) (NotDetected) M. pneumoniae (PCR) (NotDetected) Parainfluenza 1 (PCR) (NotDetected) Parainfluenza 2 (PCR) (NotDetected) Parainfluenza 3 (PCR) (NotDetected) Parainfluenza 4 (PCR) (NotDetected) RSV (PCR) (NotDetected) Entero/Rhino (PCR) (NotDetected) Administered Medications Norepinephrine Bitartrate (Levophed/D5w) 4 mg in 250 mls @ 22.654 mls/hr IV .Q11H3M [facility]; Protocol Stop: 07/12/24 12:29 Last Titration: 06/12/24 12:57 Dose: 0.07 mcg/kg/min, 22.7 mls/hr Documented By: JASON Co-signed By: NAKIA Admin: 06/12/24 12:32 Dose: 0.05 mcg/kg/min, 16.2 mls/hr Documented By: JASON Co-signed By: CHAVA Magnesium Sulfate/Dextrose (Magnesium Sulfate / D5w) 1 gm in 100 mls @ 50 mls/hr IV Q2H GLORIA Stop: 06/12/24 17:29 Last Admin: 06/12/24 14:09 Dose: 50 mls/hr Documented By: JASON Discontinued Medications Hydrocortisone Sodium Succinate (Hydrocortisone Sod Succinate 100 Mg/2 Ml Vial) 200 mg IV NOW STA Stop: 06/12/24 11:18 Last Admin: 06/12/24 11:23 Dose: 200 mg Documented By: JASON Acetaminophen (Ofirmev) 1,000 mg in 100 mls @ 400 mls/hr IV NOW STA Stop: 06/12/24 09:46 Last Infusion: 06/12/24 09:59 Dose: Infused Documented By: Admin: 06/12/24 09:38 Dose: 400 mls/hr Documented By: JASON Sodium Chloride (Nss) 1,000 mls @ 999 mls/hr IV .Q1H1M ONE Stop: 06/12/24 10:32 Last Infusion: 06/12/24 10:28 Dose: Infused Documented By: Admin: 06/12/24 09:38 Dose: 999 mls/hr Documented By: JASON Sodium Chloride (Nss) 1,000 mls @ 999 mls/hr IV .Q1H1M ONE Stop: 06/12/24 11:39 Last Infusion: 06/12/24 11:46 Dose: Infused Documented By: Admin: 06/12/24 10:52 Dose: 999 mls/hr Documented By: JASON Piperacillin Sod/Tazobactam Sod (Zosyn) 4.5 gm in 100 mls @ 200 mls/hr IV NOW ONE; Protocol Stop: 06/12/24 11:08 Last Infusion: 06/12/24 11:46 Dose: Infused Documented By: Admin: 06/12/24 10:52 Dose: 200 mls/hr Documented By: JASON Sodium Chloride (Nss) 1,000 mls @ 999 mls/hr IV .Q1H1M ONE Stop: 06/12/24 12:14 Last Infusion: 06/12/24 12:36 Dose: Infused Documented By: Admin: 06/12/24 11:35 Dose: 999 mls/hr Documented By: JASON Parenteral Electrolytes (Plasma-Lyte A Ph 7.4) 1,000 mls @ 999 mls/hr IV .Q1H1M ONE Stop: 06/12/24 14:18 Last Admin: 06/12/24 13:53 Dose: 999 mls/hr Documented By: JASON Ioversol (Optiray 320 125ml) 112 ml IV ONCE ONE Stop: 06/12/24 11:47 Last Admin: 06/12/24 11:47 Dose: 112 ml Documented By: WAI Miscellaneous (Stat Iv Infusion Titration Per Protocol) 1 each N/A NOW STA Stop: 06/12/24 12:29 Last Admin: 06/12/24 13:46 Dose: Not Given Documented By: JASON Ondansetron HCl (Ondansetron Inj 2 Mg/Ml 2 Ml Vial) 4 mg IV NOW STA Stop: 06/12/24 09:33 Last Admin: 06/12/24 09:38 Dose: 4 mg Documented By: JASON Imaging Data Attestation: I personally reviewed and interpreted this imaging study as follows: My Impression: 1 view chest x-ray was obtained in the emergency department. My interpretation is no free air or definite infiltrate, final report below. CT of the abdomen and pelvis was obtained. My interpretation is multiple fluid- filled bowel loops noted. There is no free air, distended stomach was noted, final report below. Radiologist's Impression: Chest X-Ray 06/12/24 09:33 XR chest 1V portable HISTORY: 64 years-old Male Sepsis COMPARISON: 05/21/2024 TECHNIQUE: AP view of the chest FINDINGS: Cardiomediastinal and hilar silhouettes are unchanged. No pneumothorax, pleural effusion, airspace consolidation or pulmonary edema. Bones appear grossly intact. IMPRESSION: No acute process ACT 112: Negative or not required by law. The above report was generated using voice recognition software. It may contain grammatical, syntax or spelling errors. Electronically signed by: Jose Erwin M.D. 06/12/2024 10:21 AM Abdomen/Pelvis CT 06/12/24 11:14 CT angio chest PE protocol, CT abd pelvis IV con only CT DOSE: 1786.67 mGy.cm HISTORY: 64 years-old Male with PE. Acute shortness of breath with chest and abdominal pain. Tachycardia. TECHNIQUE: Multiple CTA images of the chest were obtained after the intravenous administration of 112 ml Optiray. Coronal and sagittal MIPS were obtained from the axial data set and were submitted for review. All measurements were obtained according to NASCET criteria. A dose lowering technique was utilized adhering to the principles of ALARA. COMPARISON: CTA chest 01/22/19, CT abdomen and pelvis 07/01/2018. FINDINGS: CTA CHEST: Heart is normal in size. No pericardial effusion. No thoracic aortic aneurysm or dissection. Descending thoracic aortic tortuosity. No pulmonary emboli identified. CT CHEST: Respiratory motion artifact limits the study. No thyroid nodule or pathologically enlarged lymph nodes. Distended fluid-filled esophagus and gastroesophageal junction. No pneumothorax, pleural effusion or overt pulmonary edema. There are a few scattered punctate calcified pulmonary granulomata. Mild bronchial wall thickening. There are a few scattered patchy nodular foci of groundglass density/consolidation noted within the left lower lobe. Unremarkable soft tissues. Moderate paravertebral edema is centered around the T8-T9 vertebral body. There is endplate irregularity with chronic appearing Schmorl's nodes and severe disc space narrowing at this level. No paraspinal or epidural fluid collections. CT ABDOMEN/PELVIS: Respiratory motion artifact limits the study. No pneumatosis or pneumoperitoneum. Unremarkable spleen, pancreas, gallbladder and adrenal glands. Liver is otherwise unremarkable with patent portal vein. Unremarkable kidneys. No hydronephrosis. Mildly enlarged prostate. Atherosclerosis of the aorta. No pathologically enlarged lymph nodes identified. Fluid-filled distended stomach. Moderate colonic fecal retention with scattered air-fluid levels within the large and small bowel. Noninflamed appendix. No obstruction. Subcentimeter mesenteric lymph nodes are likely physiologic. Degenerative changes of the spine. Right hip arthroplasty. Endplate irregularity noted of the lumbar spine which is likely on a degenerative basis. IMPRESSION: 1. No pulmonary emboli identified. 2. Mild patchy consolidative opacities within the left lung, likely infectious or inflammatory. 3. Fluid-filled distended esophagus and stomach with additional fluid filled loops of large and small bowel. Findings are suggestive of a nonspecific enteritis/diarrhea illness versus ileus without evidence of obstruction. 4. Endplate irregularity with paravertebral edema at T8-T9 may be on a degenerative basis, however acute discitis/osteomyelitis could appear similarly. 5. Moderate colonic fecal retention. 6. Additional findings as above. ACT 112: Negative or not required by law. The above report was generated using voice recognition software. It may contain grammatical, syntax or spelling errors. Electronically signed by: Jose Erwin M.D. 06/12/2024 1:08 PM Chest CTA 06/12/24 11:14 CT angio chest PE protocol, CT abd pelvis IV con only CT DOSE: 1786.67 mGy.cm HISTORY: 64 years-old Male with PE. Acute shortness of breath with chest and abdominal pain. Tachycardia. TECHNIQUE: Multiple CTA images of the chest were obtained after the intravenous administration of 112 ml Optiray. Coronal and sagittal MIPS were obtained from the axial data set and were submitted for review. All measurements were obtained according to NASCET criteria. A dose lowering technique was utilized adhering to the principles of ALARA. COMPARISON: CTA chest 01/22/19, CT abdomen and pelvis 07/01/2018. FINDINGS: CTA CHEST: Heart is normal in size. No pericardial effusion. No thoracic aortic aneurysm or dissection. Descending thoracic aortic tortuosity. No pulmonary emboli identified. CT CHEST: Respiratory motion artifact limits the study. No thyroid nodule or pathologically enlarged lymph nodes. Distended fluid-filled esophagus and gastroesophageal junction. No pneumothorax, pleural effusion or overt pulmonary edema. There are a few scattered punctate calcified pulmonary granulomata. Mild bronchial wall thickening. There are a few scattered patchy nodular foci of groundglass density/consolidation noted within the left lower lobe. Unremarkable soft tissues. Moderate paravertebral edema is centered around the T8-T9 vertebral body. There is endplate irregularity with chronic appearing Schmorl's nodes and severe disc space narrowing at this level. No paraspinal or epidural fluid collections. CT ABDOMEN/PELVIS: Respiratory motion artifact limits the study. No pneumatosis or pneumoperitoneum. Unremarkable spleen, pancreas, gallbladder and adrenal glands. Liver is otherwise unremarkable with patent portal vein. Unremarkable kidneys. No hydronephrosis. Mildly enlarged prostate. Atherosclerosis of the aorta. No pathologically enlarged lymph nodes identified. Fluid-filled distended stomach. Moderate colonic fecal retention with scattered air-fluid levels within the large and small bowel. Noninflamed appendix. No obstruction. Subcentimeter mesenteric lymph nodes are likely physiologic. Degenerative changes of the spine. Right hip arthroplasty. Endplate irregularity noted of the lumbar spine which is likely on a degenerative basis. IMPRESSION: 1. No pulmonary emboli identified. 2. Mild patchy consolidative opacities within the left lung, likely infectious or inflammatory. 3. Fluid-filled distended esophagus and stomach with additional fluid filled loops of large and small bowel. Findings are suggestive of a nonspecific enteritis/diarrhea illness versus ileus without evidence of obstruction. 4. Endplate irregularity with paravertebral edema at T8-T9 may be on a degenerative basis, however acute discitis/osteomyelitis could appear similarly. 5. Moderate colonic fecal retention. 6. Additional findings as above. ACT 112: Negative or not required by law. The above report was generated using voice recognition software. It may contain grammatical, syntax or spelling errors. Electronically signed by: Jose Erwin M.D. 06/12/2024 1:08 PM Discharge Plan Visit Data Chief Complaint: Illness ED Provider: Yohannes Contreras Discharge Problem: Sepsis, Fever, Diarrhea, Acute hyponatremia Patient Disposition: Being Evaluated by Hospitalist Forms Stand Alone Forms: [email or web address] [facility] [place] Prescriptions Prescriptions: No Action (DME) incontinence pad, liner, disp Pad See Rx Instructions .ROUTE .MEDSUPPLY Qty: 180 3RF Rx Instructions: Needs 2 dailly (DME) blood-glucose meter [OneTouch UltraMini] Kit See Rx Instructions .ROUTE .MEDSUPPLY Qty: 1 0RF Rx Instructions: use to test 4 times daily polyethylene glycol 3350 17 gram/dose powder 17 g PO BID PRN (Reason: Constipation) Qty: 238 3RF Rx Instructions: Unable to verify OTC meds at this date/time. fluticasone propionate [Allergy Relief (fluticasone)] 50 mcg/actuation spray,suspension 1 - 2 spray INTNAS DAILY PRN (Reason: Allergy Symptoms) Qty: 16 3RF Rx Instructions: administer into each nostril loratadine 10 mg tablet 10 mg PO QAM Qty: 90 3RF Rx Instructions: Unable to verify OTC meds at this date/time. metformin 500 mg tablet 500 mg PO BID Qty: 180 3RF lisinopril 10 mg tablet 10 mg PO QAM Qty: 90 3RF famotidine 20 mg tablet 20 mg PO BID Qty: 180 3RF montelukast 10 mg tablet 10 mg PO PM Qty: 90 3RF potassium chloride 10 mEq capsule, extended release 10 meq PO DAILY PRN (Reason: with furosemide ) Qty: 30 0RF Rx Instructions: to take with furosemide furosemide 20 mg tablet 20 mg PO DAILY PRN (Reason: edema) Qty: 30 0RF Rx Instructions: to take with worsening edema for two days (DME) OneTouch Ultra Test Strip See Rx Instructions .Route Qty: 100 1RF Rx Instructions: test once a day (DME) lancets 33 gauge misc See Rx Instructions .ROUTE .MEDSUPPLY Qty: 100 5RF Rx Instructions: Test once daily fluticasone propion-salmeterol 250-50 mcg/dose blister with device 1 inh inhalation BID Qty: 60 3RF Rx Instructions: GENERIC omeprazole 20 mg capsule,delayed release(DR/EC) 20 mg PO QAM Qty: 90 3RF Rx Instructions: TAKE 1 CAPSULE BY MOUTH EVERY MORNING albuterol sulfate 90 mcg/actuation HFA aerosol inhaler 2 puff INHALATION QID PRN (Reason: Shortness Of Breath) Qty: 18 3RF levothyroxine 50 mcg tablet 175 mcg PO QAM Qty: 135 1RF Rx Instructions: TAKES 3 1/2 TABS. meclizine 25 mg tablet 25 mg PO TID PRN (Reason: dizziness) Qty: 30 0RF sildenafil (pulm.hypertension) 20 mg tablet 20 - 80 mg PO UD PRN (Reason: Prior to activity) Qty: 45 2RF Rx Instructions: TAKE 1-4 TABLETS BY MOUTH ONE hour prior TO activity NEEDED clonazepam 1 mg tablet 1 mg PO BID PRN (Reason: Unknown) ziprasidone HCl 40 mg capsule 40 mg PO BID Rx Instructions: TOTAL DOSE 120 MG--TAKES WITH 80 MG CAP. ziprasidone HCl 80 mg Capsule 80 mg PO BID Rx Instructions: TOTAL DOSE 120 MG--TAKES WITH 40 MG CAP. buspirone 30 mg Tablet 30 mg PO QAM Rx Instructions: PER PT "ONLY TAKE QAM". bupropion HCl 150 mg Tablet Sustained-Release 12 Hr 150 mg PO QAM acetaminophen [Tylenol 8 Hour] 650 mg Tablet Extended Release 650 - 1,300 mg PO DIRECTED PRN (Reason: Pain) Rx Instructions: Unable to verify OTC meds at this date/time. finasteride 5 mg tablet 5 mg PO DAILY Rx Instructions: TAKE 1 TABLET BY MOUTH DAILY perphenazine 4 mg tablet 4 - 8 mg PO UD Rx Instructions: Take 4mg by mouth in the morning and 8mg by mouth at bedtime methocarbamol 500 mg tablet 500 mg PO UD Rx Instructions: 500 mg po q8h. filled 05/28 30 day supply aspirin 81 mg tablet,delayed release (DR/EC) 81 mg PO UD Rx Instructions: 81 mg po qam. filled 04/20 59 day supply pravastatin 20 mg tablet 20 mg PO UD Rx Instructions: 20 mg po hs. filled 04/20 59 day supply Referrals Referrals: Yohannes Carrillo MD [Primary Care Provider] - Discharge Problem: Sepsis Qualifiers: Sepsis type: sepsis due to unspecified organism Sepsis acute organ dysfunction status: unspecified Qualified Code(s): A41.9 - Sepsis, unspecified organism Fever Qualifiers: Fever type: unspecified Qualified Code(s): R50.9 - Fever, unspecified Diarrhea Qualifiers: Diarrhea type: unspecified type Qualified Code(s): R19.7 - Diarrhea, unspecified
[2024-06-12 10:07] LABS: Base Excess VBG -4.4 mEq/L; HCO3 VBG 19 mmol/L; Oxygen Saturation VBG 95.1 %; PCO2 VBG 28 mmHg (38-50); PO2 VBG 69 mmHg; pH VBG 7.43 (7.36-7.41)
--- NOTE | 2024-06-12 10:22 | XRay Report ---
XR chest 1V portable HISTORY: 64 years-old Male Sepsis COMPARISON: 05/21/2024 TECHNIQUE: AP view of the chest FINDINGS: Cardiomediastinal and hilar silhouettes are unchanged. No pneumothorax, pleural effusion, airspace co nsolidation or pulmonary edema. Bones appear grossly intact. IMPRESSION: No acute process ACT 112: Negative or not required by law. The above report was generated using voice recognition software. It may contain grammatical, syntax o r spelling errors. Electronically signed by: Jose Erwin M.D. 06/12/2024 10:21 AM
[2024-06-12 10:36] LABS: Albumin Level 3.8 gm/dl (3.4-5.0); Bilirubin,Total 0.4 mg/dl (0.2-1.0); Calcium 8.7 mg/dl (8.6-10.3); Magnesium 1.5 mg/dl (1.7-2.4); Potassium 4.4 mmol/L (3.5-5.1)
[2024-06-12 10:40] LABS: Hematocrit (blood only) 44.7 % (42.0-52.0); Hemoglobin 15.1 g/dl (14.0-18.0); Mean Corpuscular Hemoglobin 26.3 pg (25.0-34.0); Mean Corpuscular Hgb Conc 33.8 g/dL (32.0-36.0); Mean Corpuscular Volume 77.7 fL (80.0-100.0); Mean Platelet Volume 9.1 fL (9.4-12.4); Platelet Count 300 K/uL (130-400); RDW Coefficient of Variation 15.1 % (11.5-14.5); RDW Standard Deviation 42.2 fL (36.4-46.3); Red Blood Count 5.75 M/uL (4.70-6.10); White Blood Count 8.03 K/ul (4.8-10.8)
[2024-06-12 10:42] LABS: BUN Creatinine Ratio 18.8 (10-20); Creatinine Clr Calc Pharmacy 88.3 ml/min; Total Protein 6.5 gm/dl (6.0-8.3)
[2024-06-12 10:45] LABS: INR 0.9 (0.9-1.1); Partial Thromboplastin Time 28 Seconds (21-31); Prothrombin Time 10.2 Seconds (9.0-12.0)
[2024-06-12] MEDS: PIPERACILLIN/TAZOBACTAM 4.5 GM/100 ML BAG IV ONE (10:52)
[2024-06-12 10:59] LABS: Adenovirus PCR Not Detected (NotDetected); Bordetella parapertussis PCR Not Detected (NotDetected); Bordetella pertussis PCR Not Detected (NotDetected); Chlamydia pneumoniae PCR Not Detected (NotDetected); Coronavirus 229E PCR Not Detected (NotDetected); Coronavirus CoV-2 (COVID19)PCR Not Detected (NotDetected); Coronavirus HKU1 PCR Not Detected (NotDetected); Coronavirus NL63 PCR Not Detected (NotDetected); Coronavirus OC43PCR Not Detected (NotDetected); Human Metapneumovirus PCR Not Detected (NotDetected); Influenza A PCR Not Detected (NotDetected); Influenza B PCR Not Detected (NotDetected); Mycoplasma pneumoniae PCR Not Detected (NotDetected); Parainfluenza Virus 1 PCR Not Detected (NotDetected); Parainfluenza Virus 2 PCR Not Detected (NotDetected); Parainfluenza Virus 3 PCR Not Detected (NotDetected); Parainfluenza Virus 4 PCR Not Detected (NotDetected); Respiratory Syncytial VirusPCR Not Detected (NotDetected); Rhinovirus/Enterovirus PCR Not Detected (NotDetected)
[2024-06-12 11:18] LABS: Basophils # (auto) 0.01 K/uL (0.00-0.20); Basophils % (auto) 0.1 %; Eosinophils # (auto) 0.01 K/uL (0.00-0.50); Eosinophils % (auto) 0.1 %; Immature Granulocytes # (auto) 0.02 K/uL (0.01-0.20); Immature Granulocytes % (auto) 0.2 %; Lymphocytes # (auto) 0.15 K/uL (1.20-3.40); Lymphocytes % (auto) 1.9 %; Monocytes # (auto) 0.24 K/uL (0.11-0.59); Neutrophils % (auto) 94.7 %
[2024-06-12] MEDS: HYDROCORTISONE SOD SUCCINATE 100 MG/2 ML VIAL IV STA (11:23)
[2024-06-12] MEDS: OPTIRAY 320 125ml IV ONE (11:47)
[2024-06-12 11:50] LABS: Troponin I High Sensitivity 6.1 pg/ml (0-20)
[2024-06-12] MEDS: NOREPINEPHRINE/D5W 4 MG/250 ML PLCT IV SCH (12:32)
--- NOTE | 2024-06-12 13:10 | CT Scan Report ---
CT angio chest PE protocol, CT abd pelvis IV con only CT DOSE: 1786.67 mGy.cm HISTORY: 64 years-old Male with PE. Acute shortness of breath with chest and abdominal pain. Tachyc ardia. TECHNIQUE: Multiple CTA images of the chest were obtained after the intravenous administration of 112 ml Optiray. Coronal and sagittal MIPS were obtained from the axial data set and were submitted for review. All measurements were obtained according to NASCET criteria. A dose lowering technique was u tilized adhering to the principles of ALARA. COMPARISON: CTA chest 01/22/19, CT abdomen and pelvis 07/01/2018. FINDINGS: CTA CHEST: Heart is normal in size. No pericardial effusion. No thoracic aortic aneurysm or dissectio n. Descending thoracic aortic tortuosity. No pulmonary emboli identified. CT CHEST: Respiratory motion artifact limits the study. No thyroid nodule or pathologically enlarged lymph node s. Distended fluid-filled esophagus and gastroesophageal junction. No pneumothorax, pleural effusion or overt pulmonary edema. There are a few scattered punctate calcified pulmonary granulomata. Mild br onchial wall thickening. There are a few scattered patchy nodular foci of groundglass density/consoli dation noted within the left lower lobe. Unremarkable soft tissues. Moderate paravertebral edema is c entered around the T8-T9 vertebral body. There is endplate irregularity with chronic appearing Schmor l's nodes and severe disc space narrowing at this level. No paraspinal or epidural fluid collections. CT ABDOMEN/PELVIS: Respiratory motion artifact limits the study. No pneumatosis or pneumoperitoneum. Unremarkable spleen , pancreas, gallbladder and adrenal glands. Liver is otherwise unremarkable with patent portal vein. Unremarkable kidneys. No hydronephrosis. Mildly enlarged prostate. Atherosclerosis of the aorta. No p athologically enlarged lymph nodes identified. Fluid-filled distended stomach. Moderate colonic fecal retention with scattered air-fluid levels with in the large and small bowel. Noninflamed appendix. No obstruction. Subcentimeter mesenteric lymph no hansa are likely physiologic. Degenerative changes of the spine. Right hip arthroplasty. Endplate irreg ularity noted of the lumbar spine which is likely on a degenerative basis. IMPRESSION: 1. No pulmonary emboli identified. 2. Mild patchy consolidative opacities within the left lung, likely infectious or inflammatory. 3. Fluid-filled distended esophagus and stomach with additional fluid filled loops of large and small bowel. Findings are suggestive of a nonspecific enteritis/diarrhea illness versus ileus without evid ence of obstruction. 4. Endplate irregularity with paravertebral edema at T8-T9 may be on a degenerative basis, however [place] discitis/osteomyelitis could appear similarly. 5. Moderate colonic fecal retention. 6. Additional findings as above. ACT 112: Negative or not required by law. The above report was generated using voice recognition software. It may contain grammatical, syntax o r spelling errors. Electronically signed by: Jose Erwin M.D. 06/12/2024 1:08 PM
[2024-06-12 13:15] LABS: Appearance Urine Clear (Clear); Bilirubin Urine Negative (Negative); Blood Urine Negative (Negative); Color Urine Yellow; Glucose Urine UA Negative (Negative); Ketones Urine Negative (Negative); Leukocyte Esterase Urine Negative (Negative); Nitrite Urine Negative (Negative); Protein Urine Negative (Negative); Specific Gravity Urine 1.036 (1.000-1.030); Urobilinogen Urine Negative (Negative)
--- NOTE | 2024-06-12 13:21 | Electrocardiogram Report ---
Test Reason : Blood Pressure : */* mmHG Vent. Rate : 117 BPM Atrial Rate : 117 BPM P-R Int : 216 ms QRS Dur : 138 ms QT Int : 320 ms P-R-T Axes : 2 270 62 degrees QTcB Int : 446 ms Sinus tachycardia with 1st degree A-V block Right bundle branch block Septal infarct , age undetermined Abnormal ECG When compared with ECG of 21-May-2024 14:35, Septal infarct is now Present Confirmed by Yohannes Buckley ([id number]) on 06/12/2024 1:20:56 PM Referred By: Confirmed By: Yohannes Buckley
[2024-06-12] MEDS ORDERED: ONDANSETRON INJ 2 MG/ML 2 ML VIAL IV PRN (13:34)
[2024-06-12] MEDS ORDERED: POLYETHYLENE (MIRALAX) 17 GM PACK PO PRN (13:34)
[2024-06-12] MEDS ORDERED: ACETAMINOPHEN 325 MG TAB PO PRN (13:34)
--- NOTE | 2024-06-12 13:34 | History & Physical Report ---
Date of Service June 12, 2024 Assessment & Plan (1) Sepsis: Plan: Sepsis. Suspect diarrheal illness ?PNA Recently discharged from hospital 05/22/2024, was treated for sepsis due to pneumonia with Rocephin/doxycycline and discharged on 5 days of Augmentin at [facility] t time Febrile, hypotensive, tachcardic on assessment. Intermittent cough and respiratory symptoms in addition to intermittent liquid diarrhea with some solid stool intermittently since his last discharge. Vomiting this morning and cough worse after. MAP less than 60 despite 30 cc/kg crystalloid resuscitation, hydrocortisone load in the ER CTA chest: No pulmonary emboli identified. Mild patchy consolidative opacities of the left lung, suspected infectious versus inflammatory. CTA/P: Fluid-filled distended esophagus, and stomach with additional fluid- filled loops of large and small bowel. Suspicious of nonspecific enteritis/diarrheal illness without evidence of obstruction. Endplate T8-T9 irregularity suspected degenerative but from which discitis/osteomyelitis is within the differential. Moderate colonic fecal retention Procalcitonin is normal. There is no leukocytosis Last ECHO EF 55-60%, no valvular pathology, no regional wall motion abnormality, no diastolic dysfunction. No history of CHF, does have some chronic venous stasis Troponin normal Blood cultures pending Lactate is normal - MRSA nare, sputum cx pending received empiric Zosyn in the ER. Will continue thisreceived hydrocortisone load in the ER, random cortisol 25.3; borderline. Will continue q6h and wean gradually - +fluids up to ~4L total. Improving with increasing BP, downtrending HR, and stable oxygenation through 3L fluids. Will complete up to 4L crystalloid. If unable to wean levo post fluids or limited by respiration/pulm edema --> ICU. If able to wean levo with appropriate volume rescusitation --> PCU. Diarrheal illness Patient has developed liquid diarrhea which they have not been using boluses through the sheets and admission has been on antibiotics recently. - C diff ordered. If positive --> Vanco 125 QID. - Biofire pending. History of right bundle branch block, first-degree AV block Sinus tachycardia with first-degree block and right bundle redemonstrated on admission Lyme/tickborne panel sent as this was not tested previously for this patient Hyponatremia 128, mild Trend following fluids Urine sodium, urine osmolality pending. Last urine sodium 2021 is conserved and suggestive of solute depletion rather than SIADH. Suspect similar and will correct w/ fluids - Trend daily CKD Recent baseline creatinine approximately 0.9 Admitting creatinine 0.85 Trend daily Type II DM Hyperglycemia protocol Last A1c Metformin held BSG on admission 123 Chronic stable conditions: Asthma: Continue albuterol, fluticasonealbuterol, montelukast Schizoaffective disorder: Perphenazine, ziprasidone, valproic acid continued. Valproic acid level is pending. He does not have overt encephalopathy metabolic acidosis or transaminitis suggestive of valproic toxicity. BPH: Berman in place. Finasteride continued Hyperlipidemia: Statin continued Hypothyroidism: Synthroid continued, TSH deferred in setting of critical illness History of lymphedema: With lower extremity mild pitting edema, reportedly chronic without change per patient. Lasix held in the setting of hypotension and pressor requirement. DVT PPx: Lovenox Dispo: ICU CODE: Full Diet: DM2, HH (2) Diarrheal disease: History of Present Illness Primary Care Provider: Yohannes Carrillo MD Lam Wong is a 64-year-old male with past medical history of bipolar 1 disorder, asthma, GERD, CKD, hypertension, hyperlipidemia, schizoaffective disorder, type II DM, first-degree AV block and recent hospital admission with discharge 05/18/2024 following an admission for sepsis due to pneumonia who presents to the ER 06/12/2024 with weakness, fever, fatigue and who is hypot ensive on initial assessment. Patient was resuscitated with 2.5 L of crystalloid in the ER to meet 2500 cc sepsis guideline goal and despite this remained hypotensive with maps ~56. He was also loaded with hydrocortisone, and with persistent hypotension was subsequently started on Levophed which was uptitrated from 0.05-0.07. He has a peripheral 18-gauge IV in either arm, and a right femoral central line which was placed by the ER. Patient endorses a fever and a intermittent dry cough. He has had some diarrhea in the last 2 days however has had some formed BMs with this. He has felt na useous and had 1 episode of nonbloody 9 bilious emesis this morning. He denies dysuria or painful urination. He is on lisinopril LOGISTICIAN, denies taking extra doses of his medication. Reports he felt better for couple of days and then has generally felt poorly since his last discharge, and much worse in the last 2 days with fever, chills, diarrhea. A dry cough is intermittent and has not changed much but has been on and off since he left the hospital 05/18 His stool is intermittently completely liquid but then sometimes has hard bowel movements as well. Allergies Allergy/AdvReac Type Severity Reaction Status Date / Time No Known Allergies Allergy Verified 05/26/24 13:32 Home Medications Medication Instructions Recorded Confirmed Type buspirone 30 mg tablet 30 mg PO QAM 01/26/18 06/12/24 History ziprasidone HCl 80 mg capsule 80 mg PO BID 01/26/18 06/12/24 History ziprasidone HCl 40 mg capsule 40 mg PO BID 05/27/19 06/12/24 History incontinence pad, liner, disp #180 ea 06/11/19 05/26/24 Rx blood-glucose meter (OneTouch #1 ea 07/06/19 05/26/24 Rx UltraMini kit) bupropion HCl 150 mg tablet,12 hr 150 mg PO QAM 09/13/20 06/12/24 History sustained-release acetaminophen 650 mg 650 - 1,300 mg PO DIRECTED PRN 09/19/21 06/12/24 History tablet,extended release (Tylenol 8 Pain Hour) clonazepam 1 mg tablet 1 mg PO BID PRN Unknown 02/08/22 06/12/24 History polyethylene glycol 3350 17 17 g PO BID PRN Constipation #238 06/28/23 06/12/24 Rx gram/dose oral powder grams fluticasone propionate 50 1 - 2 spray intranasal DAILY PRN 07/03/23 06/12/24 Rx mcg/actuation nasal Allergy Symptoms #16 grams spray,suspension (Allergy Relief (fluticasone)) loratadine 10 mg tablet 10 mg PO QAM #90 tabs 07/31/23 06/12/24 Rx metformin 500 mg tablet 500 mg PO BID #180 tabs 08/26/23 06/12/24 Rx finasteride 5 mg tablet 5 mg PO DAILY 09/10/23 06/12/24 History lisinopril 10 mg tablet 10 mg PO QAM #90 tabs 11/10/23 06/12/24 Rx famotidine 20 mg tablet 20 mg PO BID #180 tabs 11/21/23 06/12/24 Rx montelukast 10 mg tablet 10 mg PO PM #90 tabs 11/26/23 06/12/24 Rx potassium chloride 10 mEq 10 meq PO DAILY PRN with 01/27/24 06/12/24 Rx capsule,extended release furosemide #30 caps furosemide 20 mg tablet 20 mg PO DAILY PRN edema #30 tabs 02/03/24 06/12/24 Rx blood sugar diagnostic (OneTouch #100 ea 02/10/24 05/26/24 Rx Ultra Test strips) lancets 33 gauge #100 ea 02/10/24 05/26/24 Rx fluticasone 250 mcg-salmeterol 50 1 inh inhalation BID #60 ea 03/17/24 06/12/24 Rx mcg/dose blistr powdr for inhalation omeprazole 20 mg capsule,delayed 20 mg PO QAM #90 caps 05/04/24 06/12/24 Rx release albuterol sulfate 90 mcg/actuation 2 puff inhalation QID PRN 05/06/24 06/12/24 Rx aerosol inhaler Shortness Of Breath #18 grams perphenazine 4 mg tablet 4 - 8 mg PO UD 05/21/24 06/12/24 History levothyroxine 50 mcg tablet 175 mcg (3.5 x 50 mcg) PO QAM #135 05/27/24 06/12/24 Rx tabs meclizine 25 mg tablet 25 mg PO TID PRN dizziness #30 tabs 05/29/24 06/12/24 Rx aspirin 81 mg tablet,delayed 81 mg PO UD 06/12/24 06/12/24 History release methocarbamol 500 mg tablet 500 mg PO UD 06/12/24 06/12/24 History pravastatin 20 mg tablet 20 mg PO UD 06/12/24 06/12/24 History sildenafil (pulm.hypertension) 20 20 - 80 mg (1 - 4 x 20 mg) PO UD 06/12/24 06/12/24 Rx mg tablet PRN Prior to activity #45 tabs Past Med/Surg History Problem List (Updated 06/12/24 @ 14:55 by Gildardo Thornton MD) Hypotension Diarrhea (Acute) Fever (Acute) Diarrheal disease Acute hyponatremia (Acute) Hypomagnesemia (Acute) Weakness (Acute) Hyponatremia (Acute) Fever (Acute) Sepsis (Acute) Leukocytosis (Acute) Hip pain Lymphedema Hyponatremia (Acute) COVID-19 (Acute) Current use of proton pump inhibitor BPH with obstruction/lower urinary tract symptoms Erectile dysfunction Venous insufficiency (chronic) (peripheral) (Acute) Type 2 diabetes mellitus (Acute) Schizophrenia (Acute 05/20/12) Osteoarthritis of knee (Acute) Nocturia more than twice per night (Acute) Lymphedema of lower extremity (Acute) left Lumbosacral radiculopathy at L5 (Acute) 1st degree AV block History of colon polyps Osteoarthritis of right hip Schizoaffective disorder S/P total hip arthroplasty Cataract Hyperlipidemia Hypothyroidism (05/20/12) Hypertension GERD (gastroesophageal reflux disease) CKD (chronic kidney disease) Stage 2 Bipolar 1 disorder Asthma (Acute) used rescue inhaler "recently" Medical History Hypoxia Pneumonia Hx of basal cell carcinoma Encounter for pre-operative examination History of blood transfusion after left TKA Psychogenic polydipsia LOW (dyspnea on exertion) Diabetes mellitus, type 2 NIDDM BPH (benign prostatic hyperplasia) Right bundle branch block with left anterior fascicular block Bifascicular block - had ECHO 09/20/21 Follows with PCP Urinary incontinence Hearing deficit Sleep apnea NO DEVICE Schizoaffective disorder, bipolar type Surgical History History of right cataract extraction Left eye also done History of hip replacement R hip 11/2021 [place] teeth extracted History of total knee replacement LEFT History of esophagogastroduodenoscopy (EGD) History of colonoscopy History of tonsillectomy Family History Unknown Hypertension Mother Hypertension Sister Diabetes Other No family history of adverse response to anesthesia Denies family history of Ovarian cancer Prostate cancer Myocardial infarction Breast cancer Colorectal cancer Social History Smoking Status: Never smoker Second Hand Exposure: No; Do You Dip or Chew Tobacco: No; Hx Alcohol Use: No Hx Substance Use: No Preferred Language: Setswana Communication Ability: Effective Visual Impairment: No Limitations Hearing Ability: Normal Equipment Or Machinery Cleaner Required: No Beliefs That Will Affect Care: None marital status: Single Current Living Situation: Alone Current Living Situation Comment: HAS [employer]ARE[employer]IVERS 35 HOURS PER WEEK current occupational status: unemployed How many Children do You have: 0 Feels Safe at Home: Yes Seatbelt Use: always Assistive Devices: Cane, Glasses and Hearing Aid - Bilateral Physical Exam Physical Exam: General: A&Ox3. NAD. Cooperative. HEENT: Atraumatic, normocephalic. Vision and hearing grossly intact Pulm: Diminished, slightly coarse left base greater than right. Symmetrical chest rise. No increased work of breathing. No respiratory distress. Cardiac: Regular, tachycardic-mrg. Radial pulses intact and symmetrical. Abdominal: Nontender, nondistended, soft. BS present. Results & Data Results & Data Vital Signs (Past 12 Hours) Vital Signs Temp Pulse Pulse Resp BP BP Pulse Ox 06/12/24 12:45 100 H 14 86/64 L 97 06/12/24 12:36 105 H 20 77/50 L 97 06/12/24 12:00 99 H 22 95/55 L 99 06/12/24 11:55 102 H 22 80/57 L 98 06/12/24 11:34 108 H 26 H 89/55 L 99 06/12/24 11:22 107 H 26 H 88/59 L 95 06/12/24 11:06 111 H 21 85/67 L 97 06/12/24 10:51 114 H 17 83/63 L 95 06/12/24 10:27 37.5 C 109 H 17 92/69 L 96 06/12/24 10:11 110 H 24 97/69 L 92 06/12/24 09:47 113 H 06/12/24 09:46 38.4 C H 114 H 26 H 107/82 91 O2 Del Method O2 Flow Rate 06/12/24 12:45 Nasal Cannula 2 06/12/24 12:36 Nasal Cannula 2 06/12/24 12:00 Nasal Cannula 2 06/12/24 11:55 Nasal Cannula 2 06/12/24 11:34 Nasal Cannula 2 06/12/24 11:22 Nasal Cannula 2 06/12/24 11:06 Nasal Cannula 2 06/12/24 10:51 Nasal Cannula 2 06/12/24 10:27 Nasal Cannula 2 06/12/24 10:11 Nasal Cannula 2 06/12/24 09:47 06/12/24 09:46 Room Air PG Care Time/CCT Total # of Minutes Spent Total Time Spent with Patient: Total time spent is greater than 50% in coordination of care (as documented) at patient's floor/unit and/or counseling patient: Coding Level of Care Code 35213 INT INP/OBS CARE 3/75MIN Diagnoses Sepsis A41.9 Sepsis acute organ dysfunction status: without acute organ dysfunction Sepsis type: sepsis due to unspecified organism Diarrheal disease K52.9 (1) Sepsis Sepsis acute organ dysfunction status: without acute organ dysfunction Sepsis type: sepsis due to unspecified organism Qualified Code(s): A41.9 - Sepsis, unspecified organism
[2024-06-12] MEDS: STAT IV Infusion **Titration per Protocol STA (13:46)
[2024-06-12] MEDS: PLASMA-LYTE A 1,000 ML IV ONE (13:53)
[2024-06-12] MEDS: MAGNESIUM SULFATE / D5W 1 GM/100 ML BAG IV SCH (14:09)
[2024-06-12] MEDS: PLASMA-LYTE A 1,000 ML IV SCH (14:59)
--- NOTE | 2024-06-12 14:59 | Critical Care Consultation ---
Date of Consultation June 12, 2024 Assessment & Plan (1) Diarrhea: (2) Weakness: (3) Hypotension: Plan Impression: 64-year-old male status post recent admission for pneumonia with antibiotics. You presented today with weakness and diarrhea and was found to be profoundly volume depleted. He received 2 and half liters of crystalloid but remained with borderline blood pressures and was initiated on norepinephrine. Recommendations: 1. Hypotension: Evaluated patient and discussed with admitting hospitalist. Given the fact that his kidney function is normal and lactate is normal, I feel that he is likely volume responsive and continues to be mildly hypovolemic. We discussed administration of additional crystalloid (at least an additional 2 L). Hopefully that will be successful in weaning the patient off of vasopressor agents. If so he can likely be transferred to the floor on the hospitalist service. If he continues to require pressor agents, would be happy to receive him in the intensive care unit. 2. The patient did receive hydrocortisone in the emergency room. Random cortisol was borderline low at 25. Seems reasonable to taper steroids over the next 3 to 5 days depending on response to blood pressure. Would recommend addition of Florinef 0.1 mg orally daily if the patient can tolerate. 3. Hyponatremia: Patient currently has labs pending by the primary admitting service although I suspect this is hypovolemic hyponatremia and should correct with administration of appropriate crystalloid and reestablishment of effective circulating volume. 4. Blood gas demonstrates respiratory alkalosis likely secondary to the patient's fluid losses. 5. Diarrhea: White blood cell count normal and abdominal exam unrevealing. Stool studies have been sent including C. difficile. Defer additional workup and management to the primary admitting service. Will see how the patient responds to additional crystalloid. Hopes are that pressors may be able to be weaned off which point time he can be admitted to the floor. Again should he develop persistent hypotension we will be happy to care for him in the intensive care unit. The above case was extensively discussed with the admitting hospitalist and the bedside ER nurse. History of Present Illness History of Present Illness Asked by hospitalist to evaluate this patient with hypovolemic shock secondary to acute diarrheal illness requiring pressors in the emergency room. History is obtained from discussion with the patient as well as review the electronic medical record. Patient is a 64-year-old male with a history of bipolar and recent hospitalization admission for pneumonia who presented to the emergency room with complaints of weakness fever and fatigue. He received about 2-1/2 L of crystalloid in the emergency room but remained hypotensive. Central and was placed and he was initiated on norepinephrine. The patient has had some intermittent cough but he states he is not really coughing as this has resulted in loss of bowel function. He has not had any hematemesis or hematochezia. He has had some nausea and vomiting. No dysuria. No ill contacts that he is aware of. Stool studies are pending. Allergies Allergy/AdvReac Type Severity Reaction Status Date / Time No Known Allergies Allergy Verified 05/26/24 13:32 Home Medications Medication Instructions Recorded Confirmed Type buspirone 30 mg tablet 30 mg PO QAM 01/26/18 06/12/24 History ziprasidone HCl 80 mg capsule 80 mg PO BID 01/26/18 06/12/24 History ziprasidone HCl 40 mg capsule 40 mg PO BID 05/27/19 06/12/24 History incontinence pad, liner, disp #180 ea 06/11/19 05/26/24 Rx blood-glucose meter (OneTouch #1 ea 07/06/19 05/26/24 Rx UltraMini kit) bupropion HCl 150 mg tablet,12 hr 150 mg PO QAM 09/13/20 06/12/24 History sustained-release acetaminophen 650 mg 650 - 1,300 mg PO DIRECTED PRN 09/19/21 06/12/24 History tablet,extended release (Tylenol 8 Pain Hour) clonazepam 1 mg tablet 1 mg PO BID PRN Unknown 02/08/22 06/12/24 History polyethylene glycol 3350 17 17 g PO BID PRN Constipation #238 06/28/23 06/12/24 Rx gram/dose oral powder grams fluticasone propionate 50 1 - 2 spray intranasal DAILY PRN 07/03/23 06/12/24 Rx mcg/actuation nasal Allergy Symptoms #16 grams spray,suspension (Allergy Relief (fluticasone)) loratadine 10 mg tablet 10 mg PO QAM #90 tabs 07/31/23 06/12/24 Rx metformin 500 mg tablet 500 mg PO BID #180 tabs 08/26/23 06/12/24 Rx finasteride 5 mg tablet 5 mg PO DAILY 09/10/23 06/12/24 History lisinopril 10 mg tablet 10 mg PO QAM #90 tabs 11/10/23 06/12/24 Rx famotidine 20 mg tablet 20 mg PO BID #180 tabs 11/21/23 06/12/24 Rx montelukast 10 mg tablet 10 mg PO PM #90 tabs 11/26/23 06/12/24 Rx potassium chloride 10 mEq 10 meq PO DAILY PRN with 01/27/24 06/12/24 Rx capsule,extended release furosemide #30 caps furosemide 20 mg tablet 20 mg PO DAILY PRN edema #30 tabs 02/03/24 06/12/24 Rx blood sugar diagnostic (OneTouch #100 ea 02/10/24 05/26/24 Rx Ultra Test strips) lancets 33 gauge #100 ea 02/10/24 05/26/24 Rx fluticasone 250 mcg-salmeterol 50 1 inh inhalation BID #60 ea 03/17/24 06/12/24 Rx mcg/dose blistr powdr for inhalation omeprazole 20 mg capsule,delayed 20 mg PO QAM #90 caps 05/04/24 06/12/24 Rx release albuterol sulfate 90 mcg/actuation 2 puff inhalation QID PRN 05/06/24 06/12/24 Rx aerosol inhaler Shortness Of Breath #18 grams perphenazine 4 mg tablet 4 - 8 mg PO UD 05/21/24 06/12/24 History levothyroxine 50 mcg tablet 175 mcg (3.5 x 50 mcg) PO QAM #135 05/27/24 06/12/24 Rx tabs meclizine 25 mg tablet 25 mg PO TID PRN dizziness #30 tabs 05/29/24 06/12/24 Rx aspirin 81 mg tablet,delayed 81 mg PO UD 06/12/24 06/12/24 History release methocarbamol 500 mg tablet 500 mg PO UD 06/12/24 06/12/24 History pravastatin 20 mg tablet 20 mg PO UD 06/12/24 06/12/24 History sildenafil (pulm.hypertension) 20 20 - 80 mg (1 - 4 x 20 mg) PO UD 06/12/24 06/12/24 Rx mg tablet PRN Prior to activity #45 tabs Patient History Medical History Hypoxia Pneumonia Hx of basal cell carcinoma Encounter for pre-operative examination History of blood transfusion after left TKA Psychogenic polydipsia LOW (dyspnea on exertion) Diabetes mellitus, type 2 NIDDM BPH (benign prostatic hyperplasia) Right bundle branch block with left anterior fascicular block Bifascicular block - had ECHO 09/20/21 Follows with PCP Urinary incontinence Hearing deficit Sleep apnea NO DEVICE Schizoaffective disorder, bipolar type Surgical History History of right cataract extraction Left eye also done History of hip replacement R hip 11/2021 [place] teeth extracted History of total knee replacement LEFT History of esophagogastroduodenoscopy (EGD) History of colonoscopy History of tonsillectomy Family History Unknown Hypertension Mother Hypertension Sister Diabetes Other No family history of adverse response to anesthesia Denies family history of Ovarian cancer Prostate cancer Myocardial infarction Breast cancer Colorectal cancer Social History Smoking Status: Never smoker Second Hand Exposure: No; Do You Dip or Chew Tobacco: No; Hx Alcohol Use: No Hx Substance Use: No Preferred Language: Frisian Communication Ability: Effective Visual Impairment: No Limitations Hearing Ability: Normal Prior Authorization Nurse Required: No Beliefs That Will Affect Care: None marital status: Single Current Living Situation: Alone Current Living Situation Comment: HAS [employer] 35 HOURS PER WEEK current occupational status: unemployed How many Children do You have: 0 Feels Safe at Home: Yes Seatbelt Use: always Assistive Devices: Cane, Glasses and Hearing Aid - Bilateral Review of Systems Review of Systems: Please refer to hospitalist H&P Physical Exam Constitutional: WD/WN, vitals as above Neck: trachea midline, no thyromegaly Respiratory: normal respiratory effort, lungs clear to auscultation Cardiovascular: RRR, no murmur, no edema Gastrointestinal (Abdomen): normal bowel sounds, soft, nontender, no hepatosplenomegaly Musculoskeletal: Extremities: extremities normal to inspection Skin: no rashes, warm and dry Neurologic: Nonfocal exam Lymphatic: no cervical lymphadenopathy Results & Data Results & Data Vital Signs (Past 12 Hours) Vital Signs Temp Pulse Pulse Resp BP BP Pulse Ox 06/12/24 14:32 37.7 C H 97 H 19 96/67 L 98 02/14/25 14:12 37.8 C H 98 H 23 98/65 L 96 06/12/24 13:50 37.9 C H 99 H 18 94/73 L 95 06/12/24 13:33 37.9 C H 100 H 22 92/67 L 94 06/12/24 13:20 37.8 C H 103 H 24 85/63 L 94 06/12/24 13:05 37.7 C H 103 H 15 98/66 L 97 06/12/24 12:45 100 H 14 86/64 L 97 06/12/24 12:36 105 H 20 77/50 L 97 06/12/24 12:00 99 H 22 95/55 L 99 06/12/24 11:55 102 H 22 80/57 L 98 06/12/24 11:34 108 H 26 H 89/55 L 99 06/12/24 11:22 107 H 26 H 88/59 L 95 06/12/24 11:06 111 H 21 85/67 L 97 06/12/24 10:51 114 H 17 83/63 L 95 06/12/24 10:27 37.5 C 109 H 17 92/69 L 96 06/12/24 10:11 110 H 24 97/69 L 92 06/12/24 09:47 113 H 06/12/24 09:46 38.4 C H 114 H 26 H 107/82 91 O2 Del Method O2 Flow Rate 06/12/24 14:32 Nasal Cannula 2 06/12/24 14:12 Nasal Cannula 2 06/12/24 13:50 Nasal Cannula 2 06/12/24 13:33 Nasal Cannula 2 06/12/24 13:20 Nasal Cannula 2 06/12/24 13:05 Nasal Cannula 2 06/12/24 12:45 Nasal Cannula 2 06/12/24 12:36 Nasal Cannula 2 06/12/24 12:00 Nasal Cannula 2 06/12/24 11:55 Nasal Cannula 2 06/12/24 11:34 Nasal Cannula 2 06/12/24 11:22 Nasal Cannula 2 06/12/24 11:06 Nasal Cannula 2 06/12/24 10:51 Nasal Cannula 2 06/12/24 10:27 Nasal Cannula 2 06/12/24 10:11 Nasal Cannula 2 06/12/24 09:47 06/12/24 09:46 Room Air Critical Care Results & Data Vital Signs (Past 12 Hours) Vital Signs Temp Pulse Pulse Resp BP BP Pulse Ox 06/12/24 14:52 37.6 C H 87 14 103/68 97 06/12/24 14:32 37.7 C H 97 H 19 96/67 L 98 06/12/24 14:12 37.8 C H 98 H 23 98/65 L 96 06/12/24 13:50 37.9 C H 99 H 18 94/73 L 95 06/12/24 13:33 37.9 C H 100 H 22 92/67 L 94 06/12/24 13:20 37.8 C H 103 H 24 85/63 L 94 06/12/24 13:05 37.7 C H 103 H 15 98/66 L 97 06/12/24 12:45 100 H 14 86/64 L 97 06/12/24 12:36 105 H 20 77/50 L 97 06/12/24 12:00 99 H 22 95/55 L 99 06/12/24 11:55 102 H 22 80/57 L 98 06/12/24 11:34 108 H 26 H 89/55 L 99 06/12/24 11:22 107 H 26 H 88/59 L 95 06/12/24 11:06 111 H 21 85/67 L 97 06/12/24 10:51 114 H 17 83/63 L 95 06/12/24 10:27 37.5 C 109 H 17 92/69 L 96 06/12/24 10:11 110 H 24 97/69 L 92 06/12/24 09:47 113 H 06/12/24 09:46 38.4 C H 114 H 26 H 107/82 91 O2 Del Method O2 Flow Rate 06/12/24 14:52 Nasal Cannula 2 06/12/24 14:32 Nasal Cannula 2 06/12/24 14:12 Nasal Cannula 2 06/12/24 13:50 Nasal Cannula 2 06/12/24 13:33 Nasal Cannula 2 06/12/24 13:20 Nasal Cannula 2 06/12/24 13:05 Nasal Cannula 2 06/12/24 12:45 Nasal Cannula 2 06/12/24 12:36 Nasal Cannula 2 06/12/24 12:00 Nasal Cannula 2 06/12/24 11:55 Nasal Cannula 2 06/12/24 11:34 Nasal Cannula 2 06/12/24 11:22 Nasal Cannula 2 06/12/24 11:06 Nasal Cannula 2 06/12/24 10:51 Nasal Cannula 2 06/12/24 10:27 Nasal Cannula 2 06/12/24 10:11 Nasal Cannula 2 06/12/24 09:47 06/12/24 09:46 Room Air Lab & Micro Results (Past 24 Hours) RBC 5.75 M/uL (4.70-6.10) 06/12/24 WBC 8.03 K/ul (4.8-10.8) 06/12/24 Hgb 15.1 g/dl (14.0-18.0) 06/12/24 Hct 44.7 % (42.0-52.0) 06/12/24 MCV 77.7 fL (80.0-100.0) L 06/12/24 MCH 26.3 pg (25.0-34.0) 06/12/24 MCHC 33.8 g/dL (32.0-36.0) 06/12/24 RDW Standard Deviation 42.2 fL (36.4-46.3) 06/12/24 RDW Coefficient of Variation 15.1 % (11.5-14.5) H 06/12/24 Plt Count 300 K/uL (130-400) 06/12/24 MPV 9.1 fL (9.4-12.4) L 06/12/24 Neutrophils (%) (Auto) 94.7 % 06/12/24 Lymphocytes (%) (Auto) 1.9 % 06/12/24 Monocytes # (Auto) 0.24 K/uL (0.11-0.59) 06/12/24 Eosinophils # (Auto) 0.01 K/uL (0.00-0.50) 06/12/24 Immature Granulocyte % (Auto) 0.2 % 06/12/24 Neutrophils # (Auto) 7.60 K/uL (1.40-6.50) H 06/12/24 Lymphocytes # (Auto) 0.15 K/uL (1.20-3.40) L 06/12/24 Monocytes # (Auto) 0.24 K/uL (0.11-0.59) 06/12/24 Eosinophils # (Auto) 0.01 K/uL (0.00-0.50) 06/12/24 Basophils # (Auto) 0.01 K/uL (0.00-0.20) 06/12/24 Immature Granulocyte # (Auto) 0.02 K/uL (0.01-0.20) 5 Na 128 mmol/L (136-145) L 06/12/24 K 4.4 mmol/L (3.5-5.1) 06/12/24 Cl 99 mmol/L (98-107) 06/12/24 CO2 20 mmol/L (21-32) L 06/12/24 Anion Gap 9 (3-11) 06/12/24 BUN 16 mg/dl (6-23) 06/12/24 Creatinine 0.85 mg/dl (0.6-1.4) 06/12/24 BUN/Creatinine Ratio 18.8 (10-20) 06/12/24 Glu 123 mg/dl (70-99(Fasting)) H 06/12/24 Ca 8.7 mg/dl (8.6-10.3) 06/12/24 Total Bilirubin 0.4 mg/dl (0.2-1.0) 06/12/24 Direct Bilirubin 0.0 mg/dl (0-0.2) 06/12/24 AST 16 U/L (13-39) 06/12/24 ALT 15 U/L (7-52) 06/12/24 Alkaline Phosphatase 68 U/L (34-104) 06/12/24 TP 6.5 gm/dl (6.0-8.3) 06/12/24 Albumin 3.8 gm/dl (3.4-5.0) 06/12/24 Mg 1.5 mg/dl (1.7-2.4) L 06/12/24 09:36 Calcium Level 8.7 mg/dl (8.6-10.3) 06/12/24 09:36 Prothromb Time International Ratio 0.9 (0.9-1.1) 06/12/24 09:3 6 Venous Blood pH 7.43 (7.36-7.41) H 06/12/24 09:51 Venous Blood Partial Pressure CO2 28 mmHg (38-50) L 06/12/24 09 :51 Venous Blood Partial Pressure O2 69 mmHg 06/12/24 09:51 Venous Blood HCO3 19 mmol/L 06/12/24 09:51 Venous Blood Base Excess -4.4 mEq/L 06/12/24 09:51 Venous Blood Oxygen Saturation 95.1 % 06/12/24 09:51 Diagnostic Findings (Past 24 Hours) Chest X-Ray 06/12/24 09:33 XR chest 1V portable HISTORY: 64 years-old Male Sepsis COMPARISON: 05/21/2024 TECHNIQUE: AP view of the chest FINDINGS: Cardiomediastinal and hilar silhouettes are unchanged. No pneumothorax, pleural effusion, airspace consolidation or pulmonary edema. Bones appear grossly intact. IMPRESSION: No acute process ACT 112: Negative or not required by law. The above report was generated using voice recognition software. It may contain grammatical, syntax or spelling errors. Electronically signed by: Jose Erwin M.D. 06/12/2024 10:21 AM Abdomen/Pelvis CT 06/12/24 11:14 CT angio chest PE protocol, CT abd pelvis IV con only CT DOSE: 1786.67 mGy.cm HISTORY: 64 years-old Male with PE. Acute shortness of breath with chest and abdominal pain. Tachycardia. TECHNIQUE: Multiple CTA images of the chest were obtained after the intravenous administration of 112 ml Optiray. Coronal and sagittal MIPS were obtained from the axial data set and were submitted for review. All measurements were obtained according to NASCET criteria. A dose lowering technique was utilized adhering to the principles of ALARA. COMPARISON: CTA chest 01/22/19, CT abdomen and pelvis 07/01/2018. FINDINGS: CTA CHEST: Heart is normal in size. No pericardial effusion. No thoracic aortic aneurysm or dissection. Descending thoracic aortic tortuosity. No pulmonary emboli identified. CT CHEST: Respiratory motion artifact limits the study. No thyroid nodule or pathologic ally enlarged lymph nodes. Distended fluid-filled esophagus and gastroesophageal junction. No pneumothorax, pleural effusion or overt pulmonary edema. There are a few scattered punctate calcified pulmonary granulomata. Mild bronchial wall thickening. There are a few scattered patchy nodular foci of groundglass density/consolidation noted within the left lower lobe. Unremarkable soft tissues. Moderate paravertebral edema is centered around the T8-T9 vertebral body. There is endplate irregularity with chronic appearing Schmorl's nodes and severe disc space narrowing at this level. No paraspinal or epidural fluid collections. CT ABDOMEN/PELVIS: Respiratory motion artifact limits the study. No pneumatosis or pneumoperitoneum. Unremarkable spleen, pancreas, gallbladder and adrenal glands. Liver is otherwise unremarkable with patent portal vein. Unremarkable kidneys. No hydronephrosis. Mildly enlarged prostate. Atherosclerosis of the aorta. No pathologically enlarged lymph nodes identified. Fluid-filled distended stomach. Moderate colonic fecal retention with scattered air-fluid levels within the large and small bowel. Noninflamed appendix. No obstruction. Subcentimeter mesenteric lymph nodes are likely physiologic. Degenerative changes of the spine. Right hip arthroplasty. Endplate irregularity noted of the lumbar spine which is likely on a degenerative basis. IMPRESSION: 1. No pulmonary emboli identified. 2. Mild patchy consolidative opacities within the left lung, likely infectious or inflammatory. 3. Fluid-filled distended esophagus and stomach with additional fluid filled loops of large and small bowel. Findings are suggestive of a nonspecific enteritis/diarrhea illness versus ileus without evidence of obstruction. 4. Endplate irregularity with paravertebral edema at T8-T9 may be on a degenerative basis, however acute discitis/osteomyelitis could appear similarly. 5. Moderate colonic fecal retention. 6. Additional findings as above. ACT 112: Negative or not required by law. The above report was generated using voice recognition software. It may contain grammatical, syntax or spelling errors. Electronically signed by: Jose Erwin M.D. 06/12/2024 1:08 PM Chest CTA 06/12/24 11:14 CT angio chest PE protocol, CT abd pelvis IV con only CT DOSE: 1786.67 mGy.cm HISTORY: 64 years-old Male with PE. Acute shortness of breath with chest and abdominal pain. Tachycardia. TECHNIQUE: Multiple CTA images of the chest were obtained after the intravenous administration of 112 ml Optiray. Coronal and sagittal MIPS were obtained from the axial data set and were submitted for review. All measurements were obtained according to NASCET criteria. A dose lowering technique was utilized adhering to the principles of ALARA. COMPARISON: CTA chest 01/22/19, CT abdomen and pelvis 07/01/2018. FINDINGS: CTA CHEST: Heart is normal in size. No pericardial effusion. No thoracic aortic aneurysm or dissection. Descending thoracic aortic tortuosity. No pulmonary emboli identified. CT CHEST: Respiratory motion artifact limits the study. No thyroid nodule or pathologically enlarged lymph nodes. Distended fluid-filled esophagus and gastroesophageal junction. No pneumothorax, pleural effusion or overt pulmonary edema. There are a few scattered punctate calcified pulmonary granulomata. Mild bronchial wall thickening. There are a few scattered patchy nodular foci of groundglass density/consolidation noted within the left lower lobe. Unremarkable soft tissues. Moderate paravertebral edema is centered around the T8-T9 vertebral body. There is endplate irregularity with chronic appearing Schmorl's nodes and severe disc space narrowing at this level. No paraspinal or epidural fluid collections. CT ABDOMEN/PELVIS: Respiratory motion artifact limits the study. No pneumatosis or pneumoperitoneum. Unremarkable spleen, pancreas, gallbladder and adrenal glands. Liver is otherwise unremarkable with patent portal vein. Unremarkable kidneys. No hydronephrosis. Mildly enlarged prostate. Atherosclerosis of the aorta. No pathologically enlarged lymph nodes identified. Fluid-filled distended stomach. Moderate colonic fecal retention with scattered air-fluid levels within the large and small bowel. Noninflamed appendix. No obstruction. Subcentimeter mesenteric lymph nodes are likely physiologic. Degenerative changes of the spine. Right hip arthroplasty. Endplate irregularity noted of the lumbar spine which is likely on a degenerative basis. IMPRESSION: 1. No pulmonary emboli identified. 2. Mild patchy consolidative opacities within the left lung, likely infectious or inflammatory. 3. Fluid-filled distended esophagus and stomach with additional fluid filled loops of large and small bowel. Findings are suggestive of a nonspecific enteritis/diarrhea illness versus ileus without evidence of obstruction. 4. Endplate irregularity with paravertebral edema at T8-T9 may be on a degenerative basis, however acute discitis/osteomyelitis could appear similarly. 5. Moderate colonic fecal retention. 6. Additional findings as above. ACT 112: Negative or not required by law. The above report was generated using voice recognition software. It may contain grammatical, syntax or spelling errors. Electronically signed by: Jose Erwin M.D. 06/12/2024 1:08 PM I & O Totals 24 Hours 06/11/24 06/12/24 06/13/24 06:59 06:59 06:59 Intake Total 3206.75 / 3206.75 Output Total 1300 / 1300 Balance 1906.75 / 1906.75 Cumulative 06/12/24 09:19 thru 02/14/25 14:36 Intake Total 3206.75 Output Total 1300 Balance 1906.75 RT Ventilator Mngmt (Last Documented) Ventilator Ordered Settings Respiratory Rate 14 06/12/24 14:52 Ventilator - PT Measurements Respiratory Rate 14 Coding Level of Care Code 05134 INT INP/OBS CARE 3/75MIN Diagnoses Diarrhea R19.7 Diarrhea type: unspecified type Weakness R53.1 Hypotension I95.9 (1) Diarrhea Diarrhea type: unspecified type Qualified Code(s): R19.7 - Diarrhea, unspecified
[2024-06-12] MEDS ORDERED: HYDROCORTISONE SOD SUCCINATE 100 MG/2 ML VIAL IV SCH (17:15)
[2024-06-12] MEDS: PIPERACILLIN/TAZOBACTAM 4.5 GM/100 ML BAG IV SCH (19:43)
[2024-06-12] MEDS ORDERED: ALBUTEROL HFA 8 GM INHALER INH PRN (19:54)
[2024-06-12] MEDS ORDERED: clonazePAM 1 MG TAB PO PRN (19:54)
[2024-06-12] MEDS ORDERED: POTASSIUM CHLORIDE 10 MEQ TABCR PO PRN (19:54)
[2024-06-12] MEDS: ENOXAPARIN INJ 40 MG/0.4 ML SYR SQ SCH (21:10)
[2024-06-12] MEDS: PERPHENAZINE 4 MG TAB PO SCH (21:11)
[2024-06-12] MEDS: FAMOTIDINE 20 MG TAB PO SCH (21:11)
[2024-06-12] MEDS: ASPIRIN 81 MG ECTAB PO SCH (21:11)
[2024-06-12] MEDS: ziprasidone HCL 80 MG CAP PO SCH (21:11)
[2024-06-12] MEDS: MONTELUKAST SODIUM 10 MG TABLET PO SCH (21:11)
[2024-06-12] MEDS: PRAVASTATIN SOD 20 MG TAB PO SCH (21:12)
[2024-06-12] MEDS: HYDROCORTISONE SOD 50 MG in SYRINGE 0 ML IV SCH (21:12)
[2024-06-12] MEDS: ICU Protocol for HYPERglycemia SCH (21:16)
[2024-06-13 04:34] LABS: BUN Creatinine Ratio 12.9 (10-20); Calcium 7.1 mg/dl (8.6-10.3); Creatinine Clr Calc Pharmacy 107.2 ml/min; Magnesium 2.2 mg/dl (1.7-2.4); Potassium 3.8 mmol/L (3.5-5.1)
[2024-06-13 04:40] LABS: Echinocytes 1+; Hematocrit (blood only) 37.9 % (42.0-52.0); Hemoglobin 12.3 g/dl (14.0-18.0); Immature Granulocytes # (auto) 0.02 K/uL (0.01-0.20); Immature Granulocytes % (auto) 0.4 %; Lymphocytes # (auto) 0.26 K/uL (1.20-3.40); Lymphocytes % (auto) 5.1 %; Mean Corpuscular Hemoglobin 26.1 pg (25.0-34.0); Mean Corpuscular Hgb Conc 32.5 g/dL (32.0-36.0); Mean Corpuscular Volume 80.5 fL (80.0-100.0); Monocytes # (auto) 0.21 K/uL (0.11-0.59); Monocytes % (auto) 4.1 %; Neutrophils # (auto) 4.64 K/uL (1.40-6.50); Neutrophils % (auto) 90.4 %; Platelet Count 220 K/uL (130-400); RDW Coefficient of Variation 15.7 % (11.5-14.5); RDW Standard Deviation 45.2 fL (36.4-46.3); Red Blood Count 4.71 M/uL (4.70-6.10); White Blood Count 5.13 K/ul (4.8-10.8)
[2024-06-13] MEDS: LEVOTHYROXINE SODIUM 175 MCG TABLET PO SCH (04:40)
--- NOTE | 2024-06-13 07:38 | Critical Care Progress Note ---
Date of Service June 13, 2024 Assessment & Plan (1) Diarrhea: (2) Weakness: (3) Hypotension: Plan Impression: 64-year-old male status post recent admission for pneumonia with antibiotics. patient presented to the emergency room with weakness and diarrhea and was found to be profoundly volume depleted. He received 2 and half liters of crystalloid but remained with borderline blood pressures and was initiated on norepinephrine. Additional crystalloid infusion improved blood pressures however he required admission to the ICU overnight where pressors were weaned off. Recommendations: 1. Hypotension: Resolved. 2. Potential relative adrenal insufficiency. Recommend weaning hydrocortisone over the next 3 to 5 days. 3. Hyponatremia: Likely hypovolemic hyponatremia. Corrected with effective circulating volume repletion. 4. Blood gas demonstrates respiratory alkalosis likely secondary to the patient's fluid losses. 5. Diarrhea: Resolved This point in time the patient's critical care issues have resolved. Will discontinue his Berman catheter and transfer him to the floor under the care of the hospitalist. Critical care services will sign off. Feel free to contact us with questions or concerns Admission and Anticipated Discharge Date Admission Date: June 12, 2024 Subjective Patient seen and examined. EMR reviewed. Discussed with overnight critical care IVÁN as well as bedside nurse. Discussed on multidisciplinary rounds. The patient is doing much better this morning. He is been off vasopressor agents since shortly after his arrival to the ICU. He is hemodynamically stable. He is tolerating a diet. He is had no additional nausea or vomiting. No significant bowel movements. He denies abdominal pain. Review of Systems Review of Systems: All systems reviewed & are unremarkable except as noted in Subjective Physical Exam Constitutional: WD/WN, vitals as above Neck: trachea midline, no thyromegaly Respiratory: normal respiratory effort, lungs clear to auscultation Cardiovascular: RRR, no murmur, no edema Gastrointestinal (Abdomen): normal bowel sounds, soft, nontender, no hepatosplenomegaly Musculoskeletal: Extremities: extremities normal to inspection Skin: no rashes, warm and dry Lymphatic: no cervical lymphadenopathy Results & Data Results & Data Vital Signs (Past 12 Hours) Vital Signs Temp Pulse Pulse Resp BP BP Pulse Ox 06/13/24 07:00 37.2 C 74 17 98 06/13/24 07:00 117/57 L 06/13/24 06:30 37.2 C 77 18 97 06/13/24 06:21 37.2 C 77 17 98 06/13/24 06:03 37.1 C 79 18 95 06/13/24 06:01 114/67 06/13/24 06:01 114/67 06/13/24 05:18 37.1 C 83 18 98 06/13/24 05:15 37.1 C 77 18 96 06/13/24 05:01 94/56 L 06/13/24 05:00 37.1 C 78 17 95 06/13/24 04:42 37.0 C 73 13 99 06/13/24 04:18 37.0 C 82 16 96 06/13/24 04:01 111/64 06/13/24 04:01 111/64 06/13/24 04:01 11164 06/13/24 04:00 06/13/24 03:48 37.0 C 83 15 99 06/13/24 03:45 37.0 C 85 19 97 06/13/24 03:33 37.0 C 81 20 98 06/13/24 03:15 37.0 C 84 27 H 89 L 06/13/24 03:01 10006/13/24 03:01 10006/13/24 03:01 10006/13/24 03:01 10006/13/24 03:00 36.9 C 84 17 92 06/13/24 02:48 36.9 C 85 18 100 06/13/24 02:33 36.9 C 85 16 93 06/13/24 02:21 37.0 C 86 18 89 L 06/13/24 02:00 110/70 06/13/24 02:00 37.0 C 84 18 99 06/13/24 01:51 37.0 C 84 16 96 06/13/24 01:33 37.0 C 82 19 96 06/13/24 01:21 37.0 C 81 19 97 06/13/24 01:00 104/62 06/13/24 01:00 104/62 06/13/24 00:57 37.1 C 80 18 100 06/13/24 00:54 37.1 C 80 18 98 06/13/24 00:30 37.1 C 79 15 119/70 100 06/13/24 00:00 119/70 06/13/24 00:00 37.3 C 80 18 98 06/13/24 00:00 06/13/24 00:00 76 06/12/24 23:51 37.3 C 80 18 99 06/12/24 23:27 37.6 C H 82 21 98 06/12/24 23:06 37.8 C H 89 20 99 06/12/24 23:00 103/56 L 06/12/24 22:57 37.8 C H 89 23 94 06/12/24 22:51 06/12/24 22:30 38.0 C H 87 16 91 06/12/24 22:00 108/59 L 06/12/24 22:00 37.9 C H 89 21 93 06/12/24 21:48 37.8 C H 87 20 92 06/12/24 21:15 37.8 C H 85 14 87 L 06/12/24 21:00 122/72 06/12/24 21:00 122/72 06/12/24 20:57 37.7 C H 86 20 99 06/12/24 20:45 37.7 C H 85 15 100 06/12/24 20:33 37.5 C 86 16 118/72 100 06/12/24 20:18 103 H 12 06/12/24 20:17 118/72 06/12/24 20:17 118/72 06/12/24 20:17 118/72 06/12/24 20:17 118/72 Pulse Ox O2 Del Method O2 Del Method O2 Flow Rate O2 Flow Rate 06/13/24 07:00 06/13/24 07:00 06/13/24 06:30 06/13/24 06:21 06/13/24 06:03 06/13/24 06:01 06/13/24 06:01 06/13/24 05:18 06/13/24 05:15 06/13/24 05:01 06/13/24 05:00 06/13/24 04:42 06/13/24 04:18 06/13/24 04:01 06/13/24 04:01 06/13/24 04:01 06/13/24 04:00 97 Nasal Cannula 4 06/13/24 03:48 06/13/24 03:45 06/13/24 03:33 06/13/24 03:15 06/13/24 03:01 06/13/24 03:01 06/13/24 03:01 06/13/24 03:01 06/13/24 03:00 06/13/24 02:48 06/13/24 02:33 06/13/24 02:21 06/13/24 02:00 06/13/24 02:00 06/13/24 01:51 06/13/24 01:33 06/13/24 01:21 06/13/24 01:00 06/13/24 01:00 06/13/24 00:57 06/13/24 00:54 06/13/24 00:30 06/13/24 00:00 06/13/24 00:00 06/13/24 00:00 100 Nasal Cannula 4 06/13/24 00:00 06/12/24 23:51 06/12/24 23:27 06/12/24 23:06 06/12/24 23:00 06/12/24 22:57 06/12/24 22:51 Nasal Cannula 4 06/12/24 22:30 06/12/24 22:00 06/12/24 22:00 06/12/24 21:48 06/12/24 21:15 06/12/24 21:00 06/12/24 21:00 06/12/24 20:57 06/12/24 20:45 06/12/24 20:33 Room Air 06/12/24 20:18 06/12/24 20:17 06/12/24 20:17 06/12/24 20:17 06/12/24 20:17 Critical Care Results & Data Vital Signs (Past 12 Hours) Vital Signs Temp Pulse Pulse Resp BP BP Pulse Ox 06/13/24 07:00 37.2 C 74 17 98 06/13/24 07:00 117/57 L 06/13/24 06:30 37.2 C 77 18 97 06/13/24 06:21 37.2 C 77 17 98 06/13/24 06:03 37.1 C 79 18 95 06/13/24 06:01 114/67 06/13/24 06:01 114/67 06/13/24 05:18 37.1 C 83 18 98 06/13/24 05:15 37.1 C 77 18 96 06/13/24 05:01 94/56 L 06/13/24 05:00 37.1 C 78 17 95 06/13/24 04:42 37.0 C 73 13 99 06/13/24 04:18 37.0 C 82 16 96 06/13/24 04:01 11164 06/13/24 04:01 11106/13/24 04:01 11106/13/24 04:00 06/13/24 03:48 37.0 C 83 15 99 06/13/24 03:45 37.0 C 85 19 97 06/13/24 03:33 37.0 C 81 20 98 06/13/24 03:15 37.0 C 84 27 H 89 L 06/13/24 03:01 06/13/24 03:01 06/13/24 03:01 06/13/24 03:01 06/13/24 03:00 36.9 C 84 17 92 06/13/24 02:48 36.9 C 85 18 100 06/13/24 02:33 36.9 C 85 16 93 06/13/24 02:21 37.0 C 86 18 89 L 06/13/24 02:00 110/70 06/13/24 02:00 37.0 C 84 18 99 06/13/24 01:51 37.0 C 84 16 96 06/13/24 01:33 37.0 C 82 19 96 06/13/24 01:21 37.0 C 81 19 97 06/13/24 01:00 10462 06/13/24 01:00 10406/13/24 00:57 37.1 C 80 18 100 06/13/24 00:54 37.1 C 80 18 98 06/13/24 00:30 37.1 C 79 15 119/70 100 06/13/24 00:00 119/70 06/13/24 00:00 37.3 C 80 18 98 06/13/24 00:00 06/13/24 00:00 76 06/12/24 23:51 37.3 C 80 18 99 06/12/24 23:27 37.6 C H 82 21 98 06/12/24 23:06 37.8 C H 89 20 99 06/12/24 23:00 103/56 L 06/12/24 22:57 37.8 C H 89 23 94 06/12/24 22:51 06/12/24 22:30 38.0 C H 87 16 91 06/12/24 22:00 108/59 L 06/12/24 22:00 37.9 C H 89 21 93 06/12/24 21:48 37.8 C H 87 20 92 06/12/24 21:15 37.8 C H 85 14 87 L 06/12/24 21:00 122/72 06/12/24 21:00 122/72 06/12/24 20:57 37.7 C H 86 20 99 06/12/24 20:45 37.7 C H 85 15 100 06/12/24 20:33 37.5 C 86 16 118/72 100 06/12/24 20:18 103 H 12 06/12/24 20:17 118/72 06/12/24 20:17 118/72 06/12/24 20:17 118/72 06/12/24 20:17 118/72 Pulse Ox O2 Del Method O2 Del Method O2 Flow Rate O2 Flow Rate 06/13/24 07:00 06/13/24 07:00 06/13/24 06:30 06/13/24 06:21 06/13/24 06:03 06/13/24 06:01 06/13/24 06:01 06/13/24 05:18 06/13/24 05:15 06/13/24 05:01 06/13/24 05:00 06/13/24 04:42 06/13/24 04:18 06/13/24 04:01 06/13/24 04:01 06/13/24 04:01 06/13/24 04:00 97 Nasal Cannula 4 06/13/24 03:48 06/13/24 03:45 06/13/24 03:33 06/13/24 03:15 06/13/24 03:01 06/13/24 03:01 06/13/24 03:01 06/13/24 03:01 06/13/24 03:00 06/13/24 02:48 06/13/24 02:33 06/13/24 02:21 06/13/24 02:00 06/13/24 02:00 06/13/24 01:51 06/13/24 01:33 06/13/24 01:21 06/13/24 01:00 06/13/24 01:00 06/13/24 00:57 06/13/24 00:54 06/13/24 00:30 06/13/24 00:00 06/13/24 00:00 06/13/24 00:00 100 Nasal Cannula 4 06/13/24 00:00 06/12/24 23:51 06/12/24 23:27 06/12/24 23:06 06/12/24 23:00 06/12/24 22:57 06/12/24 22:51 Nasal Cannula 4 06/12/24 22:30 06/12/24 22:00 06/12/24 22:00 06/12/24 21:48 06/12/24 21:15 06/12/24 21:00 06/12/24 21:00 06/12/24 20:57 06/12/24 20:45 06/12/24 20:33 Room Air 06/12/24 20:18 06/12/24 20:17 06/12/24 20:17 06/12/24 20:17 06/12/24 20:17 Lab & Micro Results (Past 24 Hours) RBC 4.71 M/uL (4.70-6.10) 06/13/24 WBC 5.13 K/ul (4.8-10.8) 06/13/24 Hgb 12.3 g/dl (14.0-18.0) L 06/13/24 Hct 37.9 % (42.0-52.0) L 06/13/24 MCV 80.5 fL (80.0-100.0) 06/13/24 MCH 26.1 pg (25.0-34.0) 06/13/24 MCHC 32.5 g/dL (32.0-36.0) 06/13/24 RDW Standard Deviation 45.2 fL (36.4-46.3) 06/13/24 RDW Coefficient of Variation 15.7 % (11.5-14.5) H 06/13/24 Plt Count 220 K/uL (130-400) 06/13/24 MPV 9.0 fL (9.4-12.4) L 06/13/24 Neutrophils (%) (Auto) 90.4 % 06/13/24 Lymphocytes (%) (Auto) 5.1 % 06/13/24 Monocytes # (Auto) 0.21 K/uL (0.11-0.59) 06/13/24 Eosinophils # (Auto) 0.00 K/uL (0.00-0.50) 06/13/24 Immature Granulocyte % (Auto) 0.4 % 06/13/24 Neutrophils # (Auto) 4.64 K/uL (1.40-6.50) 06/13/24 Lymphocytes # (Auto) 0.26 K/uL (1.20-3.40) L 06/13/24 Monocytes # (Auto) 0.21 K/uL (0.11-0.59) 06/13/24 Eosinophils # (Auto) 0.00 K/uL (0.00-0.50) 06/13/24 Basophils # (Auto) 0.00 K/uL (0.00-0.20) 06/13/24 Immature Granulocyte # (Auto) 0.02 K/uL (0.01-0.20) 5 Echinocytes 1+ 06/13/24 Na 134 mmol/L (136-145) L 06/13/24 K 3.8 mmol/L (3.5-5.1) 06/13/24 Cl 105 mmol/L (98-107) 06/13/24 CO2 25 mmol/L (21-32) 06/13/24 Anion Gap 4 (3-11) 06/13/24 BUN 9 mg/dl (6-23) 06/13/24 Creatinine 0.70 mg/dl (0.6-1.4) 06/13/24 BUN/Creatinine Ratio 12.9 (10-20) 06/13/24 Glu 127 mg/dl (70-99(Fasting)) H 06/13/24 Ca 7.1 mg/dl (8.6-10.3) L 06/13/24 Total Bilirubin 0.4 mg/dl (0.2-1.0) 06/12/24 Direct Bilirubin 0.0 mg/dl (0-0.2) 06/12/24 AST 16 U/L (13-39) 06/12/24 ALT 15 U/L (7-52) 06/12/24 Alkaline Phosphatase 68 U/L (34-104) 06/12/24 TP 6.5 gm/dl (6.0-8.3) 06/12/24 Albumin 3.8 gm/dl (3.4-5.0) 06/12/24 Mg 2.2 mg/dl (1.7-2.4) 06/13/24 04:03 Calcium Level 7.1 mg/dl (8.6-10.3) L 06/13/24 04:03 Prothromb Time International Ratio 0.9 (0.9-1.1) 06/12/24 09:3 6 Venous Blood pH 7.43 (7.36-7.41) H 06/12/24 09:51 Venous Blood Partial Pressure CO2 28 mmHg (38-50) L 06/12/24 09 :51 Venous Blood Partial Pressure O2 69 mmHg 06/12/24 09:51 Venous Blood HCO3 19 mmol/L 06/12/24 09:51 Venous Blood Base Excess -4.4 mEq/L 06/12/24 09:51 Venous Blood Oxygen Saturation 95.1 % 06/12/24 09:51 Diagnostic Findings (Past 24 Hours) Chest X-Ray 06/12/24 09:33 XR chest 1V portable HISTORY: 64 years-old Male Sepsis COMPARISON: 05/21/2024 TECHNIQUE: AP view of the chest FINDINGS: Cardiomediastinal and hilar silhouettes are unchanged. No pneumothorax, pleural effusion, airspace consolidation or pulmonary edema. Bones appear grossly intact. IMPRESSION: No acute process ACT 112: Negative or not required by law. The above report was generated using voice recognition software. It may contain grammatical, syntax or spelling errors. Electronically signed by: Jose Erwin M.D. 06/12/2024 10:21 AM Abdomen/Pelvis CT 06/12/24 11:14 CT angio chest PE protocol, CT abd pelvis IV con only CT DOSE: 1786.67 mGy.cm HISTORY: 64 years-old Male with PE. Acute shortness of breath with chest and abdominal pain. Tachycardia. TECHNIQUE: Multiple CTA images of the chest were obtained after the intravenous administration of 112 ml Optiray. Coronal and sagittal MIPS were obtained from the axial data set and were submitted for review. All measurements were obtained according to NASCET criteria. A dose lowering technique was utilized adhering to the principles of ALARA. COMPARISON: CTA chest 01/22/19, CT abdomen and pelvis 07/01/2018. FINDINGS: CTA CHEST: Heart is normal in size. No pericardial effusion. No thoracic aortic aneurysm or dissection. Descending thoracic aortic tortuosity. No pulmonary emboli identified. CT CHEST: Respiratory motion artifact limits the study. No thyroid nodule or pathologically enlarged lymph nodes. Distended fluid-filled esophagus and gastroesophageal junction. No pneumothorax, pleural effusion or overt pulmonary edema. There are a few scattered punctate calcified pulmonary granulomata. Mild bronchial wall thickening. There are a few scattered patchy nodular foci of groundglass density/consolidation noted within the left lower lobe. Unremarkable soft tissues. Moderate paravertebral edema is centered around the T8-T9 vertebral body. There is endplate irregularity with chronic appearing Schmorl's nodes and severe disc space narrowing at this level. No paraspinal or epidural fluid collections. CT ABDOMEN/PELVIS: Respiratory motion artifact limits the study. No pneumatosis or pneumoperitoneum. Unremarkable spleen, pancreas, gallbladder and adrenal glands. Liver is otherwise unremarkable with patent portal vein. Unremarkable kidneys. No hydronephrosis. Mildly enlarged prostate. Atherosclerosis of the aorta. No pathologically enlarged lymph nodes identified. Fluid-filled distended stomach. Moderate colonic fecal retention with scattered air-fluid levels within the large and small bowel. Noninflamed appendix. No obstruction. Subcentimeter mesenteric lymph nodes are likely physiologic. Degenerative changes of the spine. Right hip arthroplasty. Endplate irregularity noted of the lumbar spine which is likely on a degenerative basis. IMPRESSION: 1. No pulmonary emboli identified. 2. Mild patchy consolidative opacities within the left lung, likely infectious or inflammatory. 3. Fluid-filled distended esophagus and stomach with additional fluid filled loops of large and small bowel. Findings are suggestive of a nonspecific enteritis/diarrhea illness versus ileus without evidence of obstruction. 4. Endplate irregularity with paravertebral edema at T8-T9 may be on a degenerative basis, however acute discitis/osteomyelitis could appear similarly. 5. Moderate colonic fecal retention. 6. Additional findings as above. ACT 112: Negative or not required by law. The above report was generated using voice recognition software. It may contain grammatical, syntax or spelling errors. Electronically signed by: Jose Erwin M.D. 06/12/2024 1:08 PM Chest CTA 06/12/24 11:14 CT angio chest PE protocol, CT abd pelvis IV con only CT DOSE: 1786.67 mGy.cm HISTORY: 64 years-old Male with PE. Acute shortness of breath with chest and abdominal pain. Tachycardia. TECHNIQUE: Multiple CTA images of the chest were obtained after the intravenous administration of 112 ml Optiray. Coronal and sagittal MIPS were obtained from the axial data set and were submitted for review. All measurements were obtained according to NASCET criteria. A dose lowering technique was utilized adhering to the principles of ALARA. COMPARISON: CTA chest 01/22/19, CT abdomen and pelvis 07/01/2018. FINDINGS: CTA CHEST: Heart is normal in size. No pericardial effusion. No thoracic aortic aneurysm or dissection. Descending thoracic aortic tortuosity. No pulmonary emboli identified. CT CHEST: Respiratory motion artifact limits the study. No thyroid nodule or patholo gically enlarged lymph nodes. Distended fluid-filled esophagus and gastroesophageal junction. No pneumothorax, pleural effusion or overt pulmonary edema. There are a few scattered punctate calcified pulmonary granulomata. Mild bronchial wall thickening. There are a few scattered patchy nodular foci of groundglass density/consolidation noted within the left lower lobe. Unremarkable soft tissues. Moderate paravertebral edema is centered around the T8-T9 vertebral body. There is endplate irregularity with chronic appearing Schmorl's nodes and severe disc space narrowing at this level. No paraspinal or epidural fluid collections. CT ABDOMEN/PELVIS: Respiratory motion artifact limits the study. No pneumatosis or pneumoperitoneum. Unremarkable spleen, pancreas, gallbladder and adrenal glands. Liver is otherwise unremarkable with patent portal vein. Unremarkable kidneys. No hydronephrosis. Mildly enlarged prostate. Atherosclerosis of the aorta. No pathologically enlarged lymph nodes identified. Fluid-filled distended stomach. Moderate colonic fecal retention with scattered air-fluid levels within the large and small bowel. Noninflamed appendix. No obstruction. Subcentimeter mesenteric lymph nodes are likely physiologic. Degenerative changes of the spine. Right hip arthroplasty. Endplate irregularity noted of the lumbar spine which is likely on a degenerative basis. IMPRESSION: 1. No pulmonary emboli identified. 2. Mild patchy consolidative opacities within the left lung, likely infectious or inflammatory. 3. Fluid-filled distended esophagus and stomach with additional fluid filled loops of large and small bowel. Findings are suggestive of a nonspecific enteritis/diarrhea illness versus ileus without evidence of obstruction. 4. Endplate irregularity with paravertebral edema at T8-T9 may be on a degenerative basis, however acute discitis/osteomyelitis could appear similarly. 5. Moderate colonic fecal retention. 6. Additional findings as above. ACT 112: Negative or not required by law. The above report was generated using voice recognition software. It may contain grammatical, syntax or spelling errors. Electronically signed by: Jose Erwin M.D. 06/12/2024 1:08 PM I & O Totals 24 Hours 06/12/24 06/13/24 06/14/24 06:59 06:59 06:59 Intake Total 7002.835 / 7002.835 0 / 0 Output Total 2350 / 2350 Balance 4652.835 / 4652.835 0 / 0 Cumulative 06/12/24 09:19 thru 06/13/24 07:15 Intake Total 7002.835 Output Total 2350 Balance 4652.835 RT Ventilator Mngmt (Last Documented) Ventilator Ordered Settings Respiratory Rate 17 06/13/24 07:00 Ventilator - PT Measurements Respiratory Rate 17 Coding Level of Care Code 47997 SUB INP/OBS CARE 2/35MIN Diagnoses Diarrhea R19.7 Diarrhea type: unspecified type Weakness R53.1 Hypotension I95.9 (1) Diarrhea Diarrhea type: unspecified type Qualified Code(s): R19.7 - Diarrhea, unspecified
[2024-06-13] MEDS: FINASTERIDE 5 MG TAB PO SCH (08:21)
[2024-06-13] MEDS: PANTOprazole 40 MG TAB PO SCH (08:22)
[2024-06-13] MEDS: LORATADINE 10 MG TAB PO SCH (08:22)
[2024-06-13] MEDS: busPIRone 15 MG TAB PO SCH (08:22)
[2024-06-13] MEDS: FLUTICASONE/VILANTEROL 200/25MCG 14 PUFFS/INHALER INH SCH (08:22)
[2024-06-13] MEDS: PERPHENAZINE 4 MG TAB PO SCH (08:24)
[2024-06-13] MEDS: buPROPion SR 150 MG TABCR PO SCH (08:24)
--- NOTE | 2024-06-13 17:05 | Hospitalist Progress Note ---
Date of Service June 13, 2024 Assessment & Plan (1) Sepsis: (2) Diarrheal disease: Plan This patient is a 64-year-old male with a history of bipolar disorder, schizoaffective disorder, DM2, hypothyroidism, asthma, GERD, HTN, CKD stage III, and lymphedema who presents with septic shock, unknown cause. He had profuse nausea/vomiting and some diarrhea but does take laxatives frequently. He had a fever, tachycardia, and hypotension on admission. He was given copious IV fluids and placed on Levophed and admitted to the ICU. He was started on IV hydrocortisone and weaned off Levophed. Downgraded out of the ICU on 06/13 #Septic shock-source probably viral gastroenteritis. Much improved now. Was recently hospitalized and treated with antibiotics for pneumonia but doubtful that he has C. difficile as he has not had any diarrhea since admission. CTA chest: No pulmonary emboli identified. Mild patchy consolidative opacities of the left lung, suspected infectious versus inflammatory. CTA/P: Fluid-filled distended esophagus, and stomach with additional fluid-filled loops of large and small bowel. Suspicious of nonspecific enteritis/diarrheal illness without evidence of obstruction. Endplate T8-T9 irregularity suspected degenerative and moderate colonic fecal retention Procalcitonin is normal, no leukocytosis, troponin negative, lactate normal, blood cultures no growth Last ECHO EF 55-60%, no valvular pathology, no regional wall motion abnormality, no diastolic dysfunction. No history of CHF, does have some chronic venous stasis Weaned off Levophed, was placed on IV hydrocortisone by seed analyst, blood pressures are normal, afebrile. Random cortisol 25 No further nausea/vomiting/diarrhea. Lyme titer negative, anaplasmosis and babesiosis smears negative, babesiosis PCR pending but highly doubt he has this -Downgrade out of ICU to [facility] -Continue IV hydrocortisone for today and stop tomorrow -Stop Zosyn -Follow blood cultures but do not suspect they will be positive -Holding home furosemide, lisinopril -Check C. difficile and stool PCR if has a bowel movement #Hyponatremia-sodium 128 on admission and now improved with IV fluids to 134. Urine sodium was quite low at 10 indicating hypovolemia-received IV fluids which can now be stopped as he is tolerating p.o. -Follow BMP #History of right bundle branch block, first-degree AV block Sinus tachycardia with first-degree block and right bundle redemonstrated on admission Lyme titer negative #CKD stage III Recent baseline creatinine approximately 0.9 and he is normal here as well -Renally dose medications and avoid nephrotoxins -Berman catheter removed #Type II DM-recent hemoglobin A1c normal at 5.5% Metformin held #Asthma: No acute issues, was on 4 L nasal cannula on admission which is now weaned off. -Continue albuterol, fluticasonealbuterol, montelukast #Schizoaffective bipolar disorder: No acute issues -Continue home perphenazine, ziprasidone, valproic acid continued #BPH: Berman removed -Continue finasteride #Hyperlipidemia: Statin continued #Hypothyroidism: Synthroid continued, TSH deferred in setting of critical illness #History of lymphedema: With lower extremity mild pitting edema, reportedly chronic without change per patient. Lasix held in the setting of hypotension and pressor requirement. DVT PPx: Lovenox SQ Disposition-downgrade out of ICU to [facility], likely discharge home tomorrow. He will take an Uber to home and has caregivers every day the week Admission and Anticipated Discharge Date Admission Date: June 12, 2024 Subjective Patient feels so much better today. Has not moved his bowels all day and no nausea or vomiting. He is tolerating regular food. He reports copious emesis at home prior to admission. He typically has to take MiraLAX almost daily or every other day to keep his bowels moving. He denies any abdominal pains or lightheadedness. No chest pains or shortness of breath. He is anxious to go home tomorrow. He was weaned off Levophed by this morning and was downgraded out of the ICU. Telemetry with normal sinus rhythm normal rates Physical Exam Constitutional: WD/WN, vitals as above Respiratory: normal respiratory effort, lungs clear to auscultation Cardiovascular: RRR, no murmur, no edema Gastrointestinal (Abdomen): normal bowel sounds, soft, nontender, no hepatosplenomegaly Psychiatric: A+Ox3, euthymic affect Results & Data Results & Data Vital Signs (Past 12 Hours) Vital Signs Temp Pulse Pulse Resp BP BP Pulse Ox 06/13/24 16:28 36.8 C 78 18 140/82 99 06/13/24 16:00 06/13/24 16:00 84 06/13/24 13:38 36.5 C 76 17 121/79 94 06/13/24 12:00 06/13/24 10:10 06/13/24 10:00 72 18 96 06/13/24 10:00 106/66 06/13/24 09:06 75 14 97 06/13/24 09:00 120/78 06/13/24 08:30 06/13/24 08:18 76 12 97 06/13/24 08:09 84 19 97 06/13/24 08:00 06/13/24 08:00 122/81 06/13/24 08:00 122/81 06/13/24 08:00 122/81 06/13/24 07:45 37.2 C 82 15 98 06/13/24 07:39 37.2 C 84 18 97 06/13/24 07:00 37.2 C 74 17 98 06/13/24 07:00 117/57 L 06/13/24 06:51 82 06/13/24 06:51 82 06/13/24 06:30 37.2 C 77 18 97 06/13/24 06:21 37.2 C 77 17 98 06/13/24 06:03 37.1 C 79 18 95 06/13/24 06:01 114/67 06/13/24 06:01 114/67 06/13/24 05:18 37.1 C 83 18 98 06/13/24 05:15 37.1 C 77 18 96 Pulse Ox O2 Del Method O2 Del Method 06/13/24 16:28 Room Air 06/13/24 16:00 99 Room Air 06/13/24 16:00 06/13/24 13:38 Room Air 06/13/24 12:00 95 Room Air 06/13/24 10:10 95 Room Air 06/13/24 10:00 06/13/24 10:00 06/13/24 09:06 06/13/24 09:00 06/13/24 08:30 Room Air 06/13/24 08:18 06/13/24 08:09 06/13/24 08:00 98 Room Air 06/13/24 08:00 06/13/24 08:00 06/13/24 08:00 06/13/24 07:45 06/13/24 07:39 06/13/24 07:00 06/13/24 07:00 06/13/24 06:51 06/13/24 06:51 06/13/24 06:30 06/13/24 06:21 06/13/24 06:03 06/13/24 06:01 06/13/24 06:01 06/13/24 05:18 06/13/24 05:15 Laboratory Results CBC, BMP, magnesium, serum osmolality, urine osmolality, urine sodium reviewed PG Care Time/CCT Total # of Minutes Spent Total Time Spent with Patient: Total time spent is greater than 50% in coordination of care (as documented) at patient's floor/unit and/or counseling patient: Coding Level of Care Code 87947 SUB INP/OBS CARE 3/50MIN Diagnoses Sepsis A41.9 Sepsis acute organ dysfunction status: unspecified Sepsis type: sepsis due to unspecified organism Diarrheal disease K52.9 (1) Sepsis Sepsis acute organ dysfunction status: unspecified Sepsis type: sepsis due to unspecified organism Qualified Code(s): A41.9 - Sepsis, unspecified organism
[2024-06-13] MEDS ORDERED: POLYETHYLENE (MIRALAX) 17 GM PACK PO PRN (19:24)
[2024-06-14 06:46] LABS: Hematocrit (blood only) 36.3 % (42.0-52.0); Immature Granulocytes # (auto) 0.02 K/uL (0.01-0.20); Immature Granulocytes % (auto) 0.4 %; Lymphocytes % (auto) 14.2 %; Mean Corpuscular Hemoglobin 26.2 pg (25.0-34.0); Mean Corpuscular Hgb Conc 33.1 g/dL (32.0-36.0); Mean Corpuscular Volume 79.3 fL (80.0-100.0); Monocytes # (auto) 0.46 K/uL (0.11-0.59); Monocytes % (auto) 8.2 %; Neutrophils # (auto) 4.35 K/uL (1.40-6.50); Neutrophils % (auto) 77.2 %; Platelet Count 237 K/uL (130-400); RDW Coefficient of Variation 15.8 % (11.5-14.5); RDW Standard Deviation 45.1 fL (36.4-46.3); Red Blood Count 4.58 M/uL (4.70-6.10); White Blood Count 5.63 K/ul (4.8-10.8)
[2024-06-14 07:06] LABS: BUN Creatinine Ratio 15.6 (10-20); Creatinine Clr Calc Pharmacy 117.2 ml/min; Magnesium 2.1 mg/dl (1.7-2.4); Potassium 3.5 mmol/L (3.5-5.1)
--- NOTE | 2024-06-14 11:08 | Discharge Summary ---
Discharge Summary Date of Service June 14, 2024 Principal Dx & Hospital Course #1 = Principal Diagnosis (1) Sepsis: (2) Diarrheal disease: (3) Acute hyponatremia: (4) Bipolar 1 disorder: Plan This patient is a 64-year-old male with a history of bipolar disorder, schizoaffective disorder, DM2, hypothyroidism, asthma, GERD, HTN, CKD stage III, and lymphedema who presents with septic shock, unknown cause. He had profuse na usea/vomiting and some diarrhea but does take laxatives frequently. He had a fever, tachycardia, and hypotension on admission. He was given copious IV fluids and placed on Levophed and admitted to the ICU. He was started on IV hydrocortisone and weaned off Levophed. Downgraded out of the ICU on 06/13 #Septic shock-source probably viral gastroenteritis. Now resolved. Was recently hospitalized and treated with antibiotics for pneumonia but doubtful that he has C. difficile as he has not had a single BM since admission. CTA chest: No pulmonary emboli identified. Mild patchy consolidative opacities of the left lung, suspected infectious versus inflammatory. CTA/P: Fluid-filled distended esophagus, and stomach with additional fluid- filled loops of large and small bowel. Suspicious of nonspecific enteritis/diarrheal illness without evidence of obstruction. Endplate T8-T9 irregularity suspected degenerative and moderate colonic fecal retention Procalcitonin is normal, no leukocytosis, troponin negative, lactate normal, blood cultures no growth at time of discharge around 48 hrs Last ECHO EF 55-60%, no valvular pathology, no regional wall motion abnormality, no diastolic dysfunction. No history of CHF, does have some chronic venous stasis Weaned off Levophed, was placed on IV hydrocortisone by vision teacher, blood pressures are normal, afebrile. Random cortisol 25-hydrocortisone stopped No further nausea/vomiting/diarrhea. In fact, no BM at all after admission. Tolerating regular diet Lyme titer negative, anaplasmosis and babesiosis smears negative, babesiosis PCR pending but highly doubt he has this Received IV ZOsyn empiriclaly for 24 hrs which was then stopped Blood cultures remained NGTD and will be followed after discharge -can resume home furosemide prn, lisinopril on discharge -remove right femoral central venous catheter prior to discharge #Hyponatremia-sodium 128 on admission and then improved with IV fluids to 137. Urine sodium was quite low at 10 indicating hypovolemia- #Microcytic anemia- hgb mildly low at 12 and MCV low at 79. Worse over last year. No obvious bleeding here or by history. Last colonoscopy 2020 with polyps removed benign. Recommend f/u CBC and Fe studies as outpt and referral to GI for EGD/colonoscopy #Abnormal CT of Thoracic SPine-CT Chest with moderate paravertebral edema is centered around the T8-T9 vertebral body. There is endplate irregularity with chronic appearing Schmorl's nodes and severe disc space narrowing at this level. No paraspinal or epidural fluid collections. He has no pain at this site and reports seeing Dr. Thomas of Pain Management in the past. Do not suspect infection given no pain, blood cultures neg F/u as outpatient #History of right bundle branch block, first-degree AV block Sinus tachycardia with first-degree block and right bundle redemonstrated on admission Lyme titer negative #CKD stage III Recent baseline creatinine approximately 0.9 and he is normal/improved here as well. Making urine -Renally dose medications and avoid nephrotoxins #Type II DM-recent hemoglobin A1c normal at 5.5% Metformin held but can be resume don discharge #Asthma: No acute issues, was on 4 L nasal cannula on admission which is now weaned off. -Continue albuterol, fluticasonealbuterol, montelukast as outpt #Schizoaffective bipolar disorder: No acute issues -Continue home perphenazine, ziprasidone,bupropion, buspar,clonazepam, His valproic acid was inadvertently not given as it was not on home med reconciliation on admission-he was given a dose prior to discharge and will resume home doses on discharge #BPH: Berman removed, voiding without problems -Continue finasteride #Hyperlipidemia: Statin continued #Hypothyroidism: Synthroid continued, TSH deferred in setting of critical illness #History of lymphedema: With lower extremity mild pitting edema, reportedly chronic without change per patient. Lasix held in the setting of hypotension and pressor requirement.Can resume on discharge 2x/week he takes it DVT PPx: Lovenox SQ Disposition- discharge to home today Notes For Next Care Provider F/u CBC, Fe studies, and refer to GI for anemia as outpatient Medication Changes From Visit None Admission HPI Per Admitting Provider Lam Wong is a 64-year-old male with past medical history of bipolar 1 disorder, asthma, GERD, CKD, hypertension, hyperlipidemia, schizoaffective disorder, type II DM, first-degree AV block and recent hospital admission with discharge 05/18/2024 following an admission for sepsis due to pneumonia who presents to the ER 06/12/2024 with weakness, fever, fatigue and who is hypotensive on initial assessment. Patient was resuscitated with 2.5 L of crystalloid in the ER to meet 2500 cc sepsis guideline goal and despite this remained hypotensive with maps ~56. He was also loaded with hydrocortisone, and with persistent hypotension was subsequently started on Levophed which was uptitrated from 0.05-0.07. He has a peripheral 18-gauge IV in either arm, and a right femoral central line which was placed by the ER. Patient endorses a fever and a intermittent dry cough. He has had some diarrhea in the last 2 days however has had some formed BMs with this. He has felt nauseous and had 1 episode of nonbloody 9 bilious emesis this morning. He denies dysuria or painful urination. 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 Reports he felt better for couple of days and then has generally felt poorly since his last discharge, and much worse in the last 2 days with fever, chills, diarrhea. A dry cough is intermittent and has not changed much but has been on and off since he left the hospital 05/18 His stool is intermittently completely liquid but then sometimes has hard bowel movements as well. Discharge Exam Constitutional WD/WN, vitals as above Respiratory normal respiratory effort, lungs clear to auscultation Cardiovascular RRR, no murmur, no edema right groin with femoral CVC in place, no erythema or hematoma Gastrointestinal (Abdomen) normal bowel sounds, soft, nontender, no hepatosplenomegaly Psychiatric A+Ox3, euthymic affect Discharge Plan Discharge Items Patient Disposition: Home - Self-Care Reason For Visit: SEPSIS Discharge Diagnosis: Septic shock, likely viral gastroenteritis Anemia Condition on Discharge: Good Activity: Resume your previous activity Non-emergency contact: Primary Care Provider Call non-emergency contact if: you have any medication questions and your symptoms worsen Follow-up/Referrals: Pro,Yohannes Beyer MD [Primary Care Provider] - (Follow up within 1 week-please call to schedule this) Diet: Carb Consistent or DM2 and Heart Healthy Addtl Attending Provider Instructions: You were admitted with vomiting and dehydration which caused low blood pressures. You were given IV fluid hydration and medication to raise your blood pressure. You had great improvement and can resume your usual home medications. As we discussed, you were found to be mildly anemic, likely from iron deficiency. Please follow up with Dr. Carrillo regarding this to see if you should be referred to a GI doctor for EGD and colonoscopy to look for a cause of your anemia. Pending Studies at Discharge: Yes (blood cultures-no growth to date) Stand-Alone Forms: My [facility], Smoking Cessation Medications and DC Order Prescriptions: Continued (DME) incontinence pad, liner, disp Pad See Rx Instructions .ROUTE .MEDSUPPLY Qty: 180 3RF Rx Instructions: Needs 2 dailly (DME) blood-glucose meter [OneTouch UltraMini] Kit See Rx Instructions .ROUTE .MEDSUPPLY Qty: 1 0RF Rx Instructions: use to test 4 times daily polyethylene glycol 3350 17 gram/dose powder 17 g PO BID PRN (Reason: Constipation) Qty: 238 3RF Rx Instructions: Unable to verify OTC meds at this date/time. fluticasone propionate [Allergy Relief (fluticasone)] 50 mcg/actuation spray,suspension 1 - 2 spray INTNAS DAILY PRN (Reason: Allergy Symptoms) Qty: 16 3RF Rx Instructions: administer into each nostril loratadine 10 mg tablet 10 mg PO QAM Qty: 90 3RF Rx Instructions: Unable to verify OTC meds at this date/time. lisinopril 10 mg tablet 10 mg PO QAM Qty: 90 3RF famotidine 20 mg tablet 20 mg PO BID Qty: 180 3RF montelukast 10 mg tablet 10 mg PO PM Qty: 90 3RF potassium chloride 10 mEq capsule, extended release 10 meq PO DAILY PRN (Reason: with furosemide ) Qty: 30 0RF Rx Instructions: to take with furosemide furosemide 20 mg tablet 20 mg PO DAILY PRN (Reason: edema) Qty: 30 0RF Rx Instructions: to take with worsening edema for two days (DME) OneTouch Ultra Test Strip See Rx Instructions .Route Qty: 100 1RF Rx Instructions: test once a day (DME) lancets 33 gauge misc See Rx Instructions .ROUTE .MEDSUPPLY Qty: 100 5RF Rx Instructions: Test once daily fluticasone propion-salmeterol 250-50 mcg/dose blister with device 1 inh inhalation BID Qty: 60 3RF Rx Instructions: GENERIC omeprazole 20 mg capsule,delayed release(DR/EC) 20 mg PO QAM Qty: 90 3RF Rx Instructions: TAKE 1 CAPSULE BY MOUTH EVERY MORNING albuterol sulfate 90 mcg/actuation HFA aerosol inhaler 2 puff INHALATION QID PRN (Reason: Shortness Of Breath) Qty: 18 3RF levothyroxine 50 mcg tablet 175 mcg PO QAM Qty: 135 1RF Rx Instructions: TAKES 3 1/2 TABS. meclizine 25 mg tablet 25 mg PO TID PRN (Reason: dizziness) Qty: 30 0RF sildenafil (pulm.hypertension) 20 mg tablet 20 - 80 mg PO UD PRN (Reason: Prior to activity) Qty: 45 2RF Rx Instructions: TAKE 1-4 TABLETS BY MOUTH ONE hour prior TO activity NEEDED clonazepam 1 mg tablet 1 mg PO BID PRN (Reason: Unknown) ziprasidone HCl 40 mg capsule 40 mg PO BID Rx Instructions: TOTAL DOSE 120 MG--TAKES WITH 80 MG CAP. ziprasidone HCl 80 mg Capsule 80 mg PO BID Rx Instructions: TOTAL DOSE 120 MG--TAKES WITH 40 MG CAP. buspirone 30 mg Tablet 30 mg PO QAM Rx Instructions: PER PT "ONLY TAKE QAM". bupropion HCl 150 mg Tablet Sustained-Release 12 Hr 150 mg PO QAM acetaminophen [Tylenol 8 Hour] 650 mg Tablet Extended Release 650 - 1,300 mg PO DIRECTED PRN (Reason: Pain) Rx Instructions: Unable to verify OTC meds at this date/time. finasteride 5 mg tablet 5 mg PO DAILY Rx Instructions: TAKE 1 TABLET BY MOUTH DAILY perphenazine 4 mg tablet 4 - 8 mg PO UD Rx Instructions: Take 4mg by mouth in the morning and 8mg by mouth at bedtime methocarbamol 500 mg tablet 500 mg PO UD Rx Instructions: 500 mg po q8h. filled 05/28 30 day supply aspirin 81 mg tablet,delayed release (DR/EC) 81 mg PO UD Rx Instructions: 81 mg po qam. filled 04/20 59 day supply pravastatin 20 mg tablet 20 mg PO UD Rx Instructions: 20 mg po hs. filled 04/20 59 day supply divalproex 500 mg tablet extended release 24 hr 1,000 mg PO BID Held metformin 500 mg tablet 500 mg PO BID Qty: 180 3RF Hold Instructions: Resume on 06/15/24. Discharge Orders: Discharge Order (Routine); Ordered 06/14/24 Ordered By: Isa Hendrix Admission Data Admit Date/Time: 06/12/24 17:37 Attending Provider: Isa Hendrix Admit Provider: Lam Ruiz Primary Care Provider: Yohannes Carrillo Other Providers: Lam Ruiz; Gildardo Thornton Hospital Stay Data Consultations 06/12/24 12:46 ED Decision to Admit Stat 06/12/24 17:37 Consult Manager Sports Routine Diagnostic Imagining Performed 06/12/24 11:14 CT abd pelvis IV con only Stat CT angio chest PE protocol Stat ECHO Pending Results Patient Have Any Pending Studies at Discharge: Yes (blood cultures-no growth to date) Discharge Instructions Given to Patient (Per Discharging Provider) You were admitted with vomiting and dehydration which caused low blood pressures. You were given IV fluid hydration and medication to raise your blood pressure. You had great improvement and can resume your usual home medications. As we discussed, you were found to be mildly anemic, likely from iron deficiency. Please follow up with Dr. Carrillo regarding this to see if you should be referred to a GI doctor for EGD and colonoscopy to look for a cause of your anemia. Total Time Total Time Spent Total Time Spent (In Minutes): 35 min Total Time Includes: Examination of the Patient, Discharge Planning and Medication Reconciliation Coding Level of Care Code 84399 INP/OBS DISCH >30 MIN Diagnoses Sepsis A41.9 Sepsis acute organ dysfunction status: unspecified Sepsis type: sepsis due to unspecified organism Diarrheal disease K52.9 Acute hyponatremia E87.1 Bipolar 1 disorder F31.9
[2024-06-14 11:43] VITALS: RESP 18
[2024-06-14 11:49] VITALS: O2SAT 95
[2024-06-14] MEDS: DIVALPROEX EXTENDED RELEASE 500 MG TAB PO ONE (12:01)
[2024-06-14 12:04] VITALS: BP 144/85; PULSE 74; TEMP 97.3
[2024-06-17 15:40] LABS: Babesia microti DNA Not Detected (Not Detected)
== END 2024-06-14 13:34 | disposition home or self-care (01) | DRG 871 ==
LOC: ED 09:26 → SUATTDRO 17:37 → 1E 17:37 → 3W 06-13 21:31

== ENCOUNTER 2024-06-28 12:30 | Observation (INO) ==
[2024-06-28 13:04] LABS: Basophils # (auto) 0.02 K/uL (0.00-0.20); Basophils % (auto) 0.2 %; Eosinophils # (auto) 0.11 K/uL (0.00-0.50); Eosinophils % (auto) 0.9 %; Hematocrit (blood only) 43.6 % (42.0-52.0); Hemoglobin 14.5 g/dl (14.0-18.0); Immature Granulocytes # (auto) 0.05 K/uL (0.01-0.20); Immature Granulocytes % (auto) 0.4 %; Lymphocytes # (auto) 0.91 K/uL (1.20-3.40); Lymphocytes % (auto) 7.7 %; Mean Corpuscular Hemoglobin 26.4 pg (25.0-34.0); Mean Corpuscular Hgb Conc 33.3 g/dL (32.0-36.0); Mean Corpuscular Volume 79.3 fL (80.0-100.0); Mean Platelet Volume 9.3 fL (9.4-12.4); Monocytes # (auto) 0.71 K/uL (0.11-0.59); Neutrophils # (auto) 9.95 K/uL (1.40-6.50); Neutrophils % (auto) 84.8 %; Platelet Count 305 K/uL (130-400); RDW Coefficient of Variation 15.2 % (11.5-14.5); RDW Standard Deviation 43.8 fL (36.4-46.3); White Blood Count 11.75 K/ul (4.8-10.8)
--- NOTE | 2024-06-28 13:10 | XRay Report ---
XR chest 1V portable HISTORY: 64 years-old Male cough COMPARISON: 06/12/2024 TECHNIQUE: AP view the chest FINDINGS: Cardiac silhouette is normal. Lungs appear clear. No pneumothorax or pleural effusion. Bones appear g rossly intact. IMPRESSION: No acute process. ACT 112: Negative or not required by law. The above report was generated using voice recognition software. It may contain grammatical, syntax o r spelling errors. Electronically signed by: Jose Erwin M.D. 06/28/2024 1:09 PM
[2024-06-28 13:13] LABS: Alanine Aminotransferase 23 U/L (7-52); Albumin Globulin Ratio 1.7 (0.9-2); Albumin Level 4.4 gm/dl (3.4-5.0); Alkaline Phosphatase 88 U/L (34-104); Anion Gap 8 (3-11); Aspartate Aminotransferase 19 U/L (13-39); BUN Creatinine Ratio 9.1 (10-20); Bilirubin,Total 0.4 mg/dl (0.2-1.0); Blood Urea Nitrogen 9 mg/dl (6-23); Calcium 9.7 mg/dl (8.6-10.3); Carbon Dioxide 28 mmol/L (21-32); Chloride 95 mmol/L (98-107); Creatinine Clr Calc Pharmacy 75.8 ml/min; Globulin 2.6 gm/dl (2.5-4.0); Glucose 91 mg/dl (70-99(Fasting)); Magnesium 1.8 mg/dl (1.7-2.4); Potassium 4.2 mmol/L (3.5-5.1); Sodium 131 mmol/L (136-145)
[2024-06-28 13:18] LABS: Troponin I High Sensitivity < 2.3 pg/ml (0-20)
[2024-06-28] MEDS: SODIUM CHLORIDE 0.9% 1,000 ML IV ONE ×2 (13:25→14:20)
[2024-06-28] MEDS: ACETAMINOPHEN 1,000 MG/100 ML VIAL IV STA (13:29)
[2024-06-28] MEDS: ALBUT/IPRATROP 3MG/0.5MG NEB 3 ML VIAL NEB STA ×2 (13:30→15:41)
[2024-06-28 13:52] LABS: Adenovirus PCR Not Detected (NotDetected); Bordetella parapertussis PCR Not Detected (NotDetected); Bordetella pertussis PCR Not Detected (NotDetected); Chlamydia pneumoniae PCR Not Detected (NotDetected); Coronavirus 229E PCR Not Detected (NotDetected); Coronavirus CoV-2 (COVID19)PCR Not Detected (NotDetected); Coronavirus HKU1 PCR Not Detected (NotDetected); Coronavirus NL63 PCR Not Detected (NotDetected); Coronavirus OC43PCR Not Detected (NotDetected); Human Metapneumovirus PCR Not Detected (NotDetected); Influenza A (H3) PCR DETECTED (NotDetected); Influenza B PCR Not Detected (NotDetected); Mycoplasma pneumoniae PCR Not Detected (NotDetected); Parainfluenza Virus 1 PCR Not Detected (NotDetected); Parainfluenza Virus 2 PCR Not Detected (NotDetected); Parainfluenza Virus 3 PCR Not Detected (NotDetected); Parainfluenza Virus 4 PCR Not Detected (NotDetected); Respiratory Syncytial VirusPCR Not Detected (NotDetected); Rhinovirus/Enterovirus PCR Not Detected (NotDetected)
[2024-06-28] MEDS: OSELTAMIVIR PHOSPHATE 75 MG CAP PO STA (15:01)
--- NOTE | 2024-06-28 15:26 | Emergency Department Note ---
Impression & Plan Dyspnea, Influenza, Dehydration, Myalgia, Hypoxia ED Provider Note ED Provider Note NAME: LOU COLON AGE:64 SEX: Male : 1960 ARRIVES VIA: EMS INFORMANT: Patient ED PROVIDER(s): Miya Baez DO CHIEF COMPLAINT: Cough, body aches, fever HPI: This is a 64-year-old male presents emergency department via EMS due to concern for cough, difficulty breathing, body aches, and fever. Patient does admit to a recent sick contact. He states his cough is mostly nonproductive. He states he has not had a normal appetite but denies any overt vomiting or diarrhea. Denies any rash or sores, denies leg swelling. He states he does have chest discomfort with frequent coughing. He states he has also had nasal congestion as well as a sore throat. No recent travel, no change in medications. Patient states he does have a history of asthma. Patient states symptoms began 2 days ago. PAST MEDICAL HISTORY:See Below PAST SURGICAL HISTORY:See Below FAMILY HISTORY:See Below SOCIAL HISTORY:See Below HOME MEDICATIONS:See Below ALLERGIES:See Below VITALS:See Below PHYSICAL EXAMINATION: GENERAL: alert, ill appearing, well nourished, no distress, non-toxic EYE EXAM: normal conjunctiva, PERRL and EOM's grossly intact OROPHARYNX: no exudate, no erythema, lips, buccal mucosa, and tongue normal and mucous membranes are dry NECK: supple, no nuchal rigidity, no adenopathy, non-tender LUNGS: Coarse breath sounds to auscultation. Normal chest wall mechanics, no w/r/r HEART: no murmurs, S1 normal and S2 normal ABDOMEN: abdomen soft, non-tender, normo-active bowel sounds, no masses, no rebound or guarding. BACK: Back is symmetrical on inspection and there is no deformity, no midline tenderness, no CVA tenderness. SKIN: no rashes, petechiae, orbruising UPPER EXTREMITIES: upper extremities are grossly normal. FROM, nml pulses b/l. LOWER EXTREMITIES: No pitting edema. FROM, nml pulses b/l. NEURO EXAM: Normal sensorium, cranial nerves II-XII grossly intact, normal speech, no facial droop,nogross weakness of arms, no gross weakness of legs. Gross sensation intact. No ataxia. Vital Signs: reviewed and remarkable Differential Diagnosis: Viral syndrome, bronchitis, pneumonia, influenza, dehydration, RONDA, dysrhythmia, pleural effusion, pericardial effusion, pericarditis/myocarditis, medication ADR, as well as others were considered MEDICAL DECISION MAKING: This is a 64-year-old male presents emergency room due to concern for cough, body aches, fevers, difficulty breathing. Patient noted to be febrile and tachycardic on arrival. No overt hypoxia. Labs drawn and sent, IV established, EKG and chest x-ray performed at bedside and interpreted by me and patient monitored on telemetry. He was started on gentle IV fluid hydration, given IV Tylenol for fevers, as well as given a DuoNeb given the history of asthma and his reported cough and trouble breathing. Blood cultures obtained and sent as a precaution given initial vital signs. Nasal swab obtained and sent additionally as patient reported a known sick contact. Patient's nasal swab positive for influenza which I feel explains his symptoms. Patient's labs reassuring. Mild leukocytosis noted however procalcitonin lactic acid negative. I do not suspect occult sepsis. Chest x-ray without any additional acute pathology. No ectopy or dysrhythmia noted while monitored on telemetry. Patient given a second DuoNeb and did report some improvement. He was able to tolerate p.o. at bedside. Patient was noted to be hypoxic between nebulizer treatments off oxygen. He was placed on oxygen via nasal cannula with improvement in the low to mid 90s and reported feeling improved on oxygen. Due to complicated course of influenza with his accompanying asthma and noted hypoxia, case discussed with the hospitalist team for additional evaluation and management. Consultation(s): 1715: Discussed with Dr. Ruiz, [facility] hospitalist team, for additional evaluation and management. ER Treatment Provided: See below 1700: Upon recheck patient states he is feeling slightly improved although still feels his asthma is "acting up". Patient noted to have oxygen saturation of 85% with a good waveform on telemetry. He was placed on oxygen via nasal cannula 2 L/min with improvement to 92%. Diagnostics Interpreted By Me: -ECG: Sinus tachycardia at 101 with first-degree AV block, leftward axis, right bundle branch block, nonspecific ST/T wave changes -Cardiac Monitoring: An order was placed for continuous cardiac monitoring. The monitor shows a rate of 98 with normal sinus rhythm. -Laboratory studies: As stated above and show below. -Imaging studies: X-ray Chest: A single view study of the chest was reviewed and was negative for cardiomegaly, focal infiltrate, effusion, pulmonary edema, or wide mediastinum. Triage Nursing Note Reviewed Prior/Outside Records Reviewed Past Med/Surg History Problem List (Updated 06/28/24 @ 20:00 by Ulysses Huber) Acute hypoxic respiratory failure Influenza A Hypoxia (Acute) Myalgia (Acute) Dehydration (Acute) Influenza (Acute) Dyspnea (Acute) Hypotension Diarrhea (Acute) Fever (Acute) Diarrheal disease Acute hyponatremia (Acute) Hypomagnesemia (Acute) Weakness (Acute) Hyponatremia (Acute) Fever (Acute) Leukocytosis (Acute) Hip pain Lymphedema Hyponatremia (Acute) COVID-19 (Acute) Current use of proton pump inhibitor BPH with obstruction/lower urinary tract symptoms Erectile dysfunction Venous insufficiency (chronic) (peripheral) (Acute) Type 2 diabetes mellitus (Acute) Schizophrenia (Acute 05/20/12) Osteoarthritis of knee (Acute) Nocturia more than twice per night (Acute) Lymphedema of lower extremity (Acute) left Lumbosacral radiculopathy at L5 (Acute) 1st degree AV block History of colon polyps Osteoarthritis of right hip Schizoaffective disorder S/P total hip arthroplasty Cataract Hyperlipidemia Hypothyroidism (05/20/12) Hypertension GERD (gastroesophageal reflux disease) CKD (chronic kidney disease) Stage 2 Bipolar 1 disorder Asthma (Acute) used rescue inhaler "recently" Medical History Hypoxia Pneumonia Hx of basal cell carcinoma Encounter for pre-operative examination History of blood transfusion after left TKA Psychogenic polydipsia LOW (dyspnea on exertion) Diabetes mellitus, type 2 NIDDM BPH (benign prostatic hyperplasia) Right bundle branch block with left anterior fascicular block Bifascicular block - had ECHO 09/20/21 Follows with PCP Urinary incontinence Hearing deficit Sleep apnea NO DEVICE Schizoaffective disorder, bipolar type Surgical History History of right cataract extraction History of hip replacement [place] teeth extracted History of total knee replacement History of esophagogastroduodenoscopy (EGD) History of colonoscopy History of tonsillectomy Family History Unknown Hypertension Mother Hypertension Sister Diabetes Other No family history of adverse response to anesthesia Denies family history of Ovarian cancer Prostate cancer Myocardial infarction Breast cancer Colorectal cancer Social History Smoking Status: Never smoker Second Hand Exposure: No; Do You Dip or Chew Tobacco: No; Hx Alcohol Use: No Hx Substance Use: No Preferred Language: Uzbek Communication Ability: Effective Visual Impairment: No Limitations Hearing Ability: Normal Egg Producer Required: No Beliefs That Will Affect Care: None marital status: Single Current Living Situation: Alone Current Living Situation Comment: caregiver 35 hours/week current occupational status: unemployed How many Children do You have: 0 Feels Safe at Home: Yes Seatbelt Use: always Assistive Devices: Cane Allergies Allergies Allergy/AdvReac Type Severity Reaction Status Date / Time No Known Allergies Allergy Verified 06/22/24 11:46 Home Meds Home Medications Medication Instructions Recorded Confirmed ziprasidone HCl 80 mg capsule 80 mg PO BID 01/26/18 06/28/24 ziprasidone HCl 40 mg capsule 40 mg PO BID 05/27/19 06/28/24 acetaminophen 650 mg 650 - 1,300 mg PO DIRECTED PRN 09/19/21 06/28/24 tablet,extended release (Tylenol 8 Pain Hour) finasteride 5 mg tablet 5 mg PO DAILY 09/10/23 06/28/24 perphenazine 4 mg tablet 4 - 8 mg PO UD 05/21/24 06/28/24 aspirin 81 mg tablet,delayed 81 mg PO UD 06/12/24 06/28/24 release methocarbamol 500 mg tablet 500 mg PO UD 06/12/24 06/28/24 pravastatin 20 mg tablet 20 mg PO UD 06/12/24 06/28/24 bupropion HCl 150 mg tablet,12 hr 150 mg PO QAM 06/15/24 06/28/24 sustained-release buspirone 30 mg tablet 30 mg PO QAM 06/15/24 06/28/24 clonazepam 1 mg tablet 1 mg PO BID PRN Unknown 06/15/24 06/28/24 divalproex 500 mg tablet,extended 1,000 mg PO BID 06/15/24 06/28/24 release 24 hr [id number] 300 mcg-K 60 1 tab PO DAILY 06/15/24 06/28/24 mcg-lycop 600 mcg-lutein 300 mcg tablet ([facility]) Previous Rx's Medication Instructions Recorded incontinence pad, liner, disp #180 ea 06/11/19 blood-glucose meter (OneTouch #1 ea 07/06/19 UltraMini kit) polyethylene glycol 3350 17 17 g PO BID PRN Constipation #238 06/28/23 gram/dose oral powder grams fluticasone propionate 50 1 - 2 spray intranasal DAILY PRN 07/03/23 mcg/actuation nasal Allergy Symptoms #16 grams spray,suspension (Allergy Relief (fluticasone)) lisinopril 10 mg tablet 10 mg PO QAM #90 tabs 11/10/23 famotidine 20 mg tablet 20 mg PO BID #180 tabs 11/21/23 montelukast 10 mg tablet 10 mg PO PM #90 tabs 11/26/23 blood sugar diagnostic (OneTouch #100 ea 02/10/24 Ultra Test strips) lancets 33 gauge #100 ea 02/10/24 fluticasone 250 mcg-salmeterol 50 1 inh inhalation BID #60 ea 03/17/24 mcg/dose blistr powdr for inhalation albuterol sulfate 90 mcg/actuation 2 puff inhalation QID PRN 05/06/24 aerosol inhaler Shortness Of Breath #18 grams levothyroxine 50 mcg tablet 175 mcg (3.5 x 50 mcg) PO QAM #135 05/27/24 tabs meclizine 25 mg tablet 25 mg PO TID PRN dizziness #30 tabs 05/29/24 sildenafil (pulm.hypertension) 20 20 - 80 mg (1 - 4 x 20 mg) PO UD 06/12/24 mg tablet PRN Prior to activity #45 tabs furosemide 20 mg tablet 20 mg PO DAILY PRN edema #30 tabs 06/15/24 omeprazole 20 mg capsule,delayed 20 mg PO .dinner #90 caps 06/15/24 release potassium chloride 10 mEq 10 meq PO DAILY PRN with 06/15/24 capsule,extended release furosemide #30 caps metformin 500 mg tablet 500 mg PO BID #180 tabs 06/17/24 benzonatate 100 mg capsule 100 mg PO TID PRN cough #14 caps 06/29/24 loratadine 10 mg tablet 10 mg PO QAM #90 tabs 06/29/24 oseltamivir 75 mg capsule (Tamiflu) 75 mg PO BID 5 days #10 caps 06/29/24 Results & Data (ED) Vital Signs Vital Signs - 24 hr 06/28/24 17:30 Pulse Rate 95 H Pulse Rate from SpO2 Sensor 95 H Respiratory Rate 19 Blood Pressure 113/74 Blood Pressure Mean 87 Pulse Oximetry 93 Laboratory Data 06/29/24 05:38 06/29/24 05:38 Lab Results 06/28/24 06/28/24 06/28/24 Range/Units 12:45 12:56 13:18 WBC 11.75 H (4.8-10.8) K/ul RBC 5.50 (4.70-6.10) M/uL Hgb 14.5 (14.0-18.0) g/dl Hct 43.6 (42.0-52.0) % MCV 79.3 L (80.0-100.0) fL MCH 26.4 (25.0-34.0) pg MCHC 33.3 (32.0-36.0) g/dL RDW Std Deviation 43.8 (36.4-46.3) fL RDW Coeff of Joey 15.2 H (11.5-14.5) % Plt Count 305 (130-400) K/uL MPV 9.3 L (9.4-12.4) fL Immature Gran % (Auto) 0.4 % Neut % (Auto) 84.8 % Lymph % (Auto) 7.7 % Mclennan % (Auto) 6.0 % Eos % (Auto) 0.9 % Baso % (Auto) 0.2 % Neut # (Auto) 9.95 H (1.40-6.50) K/uL Lymph # (Auto) 0.91 L (1.20-3.40) K/uL Mclennan # (Auto) 0.71 H (0.11-0.59) K/uL Eos # (Auto) 0.11 (0.00-0.50) K/uL Baso # (Auto) 0.02 (0.00-0.20) K/uL Immature Gran # (Auto) 0.05 (0.01-0.20) K/uL Sodium 131 L (136-145) mmol/L Potassium 4.2 (3.5-5.1) mmol/L Chloride 95 L (98-107) mmol/L Carbon Dioxide 28 (21-32) mmol/L Anion Gap 8 (3-11) BUN 9 (6-23) mg/dl Creatinine 0.99 (0.6-1.4) mg/dl Est Cr Clr Drug Dosing 75.8 ml/min eGFR 84.01 BUN/Creatinine Ratio 9.1 L (10-20) Glucose 91 (70-99(Fasting)) mg/dl Lactate 1.7 (0.4-2.0) mmol/L Calcium 9.7 (8.6-10.3) mg/dl Magnesium 1.8 (1.7-2.4) mg/dl Total Bilirubin 0.4 (0.2-1.0) mg/dl AST 19 (13-39) U/L ALT 23 (7-52) U/L Alkaline Phosphatase 88 (34-104) U/L Troponin I High Sens < 2.3 (0-20) pg/ml Total Protein 7.0 (6.0-8.3) gm/dl Albumin 4.4 (3.4-5.0) gm/dl Globulin 2.6 (2.5-4.0) gm/dl Albumin/Globulin Ratio 1.7 (0.9-2) Procalcitonin 0.09 (0-0.5) ng/ml Adenovirus (PCR) Not Detected (NotDetected) B. pertussis DNA (PCR) Not Detected (NotDetected) B.parapertussis DNA PCR Not Detected (NotDetected) C. pneumoniae DNA (PCR) Not Detected (NotDetected) Coronavirus OC43 (PCR) Not Detected (NotDetected) Coronavirus HKU1 (PCR) Not Detected (NotDetected) Coronavirus 229E (PCR) Not Detected (NotDetected) SARS-CoV-2 (PCR) Not Detected (NotDetected) Coronavirus NL63 (PCR) Not Detected (NotDetected) Human Metapneumovir PCR Not Detected (NotDetected) Influenza A (H3) PCR DETECTED A (NotDetected) Influenza Type B (PCR) Not Detected (NotDetected) M. pneumoniae (PCR) Not Detected (NotDetected) Parainfluenza 1 (PCR) Not Detected (NotDetected) Parainfluenza 2 (PCR) Not Detected (NotDetected) Parainfluenza 3 (PCR) Not Detected (NotDetected) Parainfluenza 4 (PCR) Not Detected (NotDetected) RSV (PCR) Not Detected (NotDetected) Entero/Rhino (PCR) Not Detected (NotDetected) Administered Medications Discontinued Medications Albuterol (Albut/Ipratrop 3mg/0.5mg Neb 3 Ml Vial) 3 ml NEB NOW STA; Protocol Stop: 06/28/24 12:46 Last Admin: 06/28/24 13:30 Dose: 3 ml Documented By: CEF Albuterol (Albut/Ipratrop 3mg/0.5mg Neb 3 Ml Vial) 3 ml NEB NOW STA; Protocol Stop: 06/28/24 15:30 Last Admin: 06/28/24 15:41 Dose: 3 ml Documented By: RATNA Aspirin (Aspirin 81 Mg Ectab) 81 mg PO [facility] Stop: 07/28/24 20:01 Last Admin: 06/29/24 07:48 Dose: 81 mg Documented By: Admin: 06/28/24 22:41 Dose: 81 mg Documented By: ESE Benzonatate (Benzonatate 100 Mg Capsule) 100 mg PO NOW ONE Stop: 06/28/24 15:21 Last Admin: 06/28/24 15:37 Dose: 100 mg Documented By: RATNA Benzonatate (Benzonatate 100 Mg Capsule) 100 mg PO TID [facility] Stop: 07/28/24 20:59 Last Admin: 06/29/24 07:50 Dose: 100 mg Documented By: Admin: 06/28/24 22:42 Dose: 100 mg Documented By: ESE Bupropion HCl (Bupropion Sr 150 Mg Tabcr) 150 mg PO [facility] Stop: 07/29/24 08:59 Last Admin: 06/29/24 07:47 Dose: 150 mg Documented By: DIANA Buspirone HCl (Buspirone 15 Mg Tab) 30 mg PO [facility] Stop: 07/29/24 08:59 Last Admin: 06/29/24 07:45 Dose: 30 mg Documented By: DIANA Divalproex Sodium (Divalproex Extended Release 500 Mg Tab) 1,000 mg PO BID [facility] Stop: 07/28/24 20:59 Last Admin: 06/29/24 07:46 Dose: 1,000 mg Documented By: Admin: 06/28/24 22:43 Dose: 1,000 mg Documented By: ESE Famotidine (Famotidine 20 Mg Tab) 20 mg PO BID [facility] Stop: 07/28/24 20:59 Last Admin: 06/29/24 07:48 Dose: 20 mg Documented By: Admin: 06/28/24 22:42 Dose: 20 mg Documented By: ESE Finasteride (Finasteride 5 Mg Tab) 5 mg PO DAILY [facility] Stop: 07/29/24 08:59 Last Admin: 06/29/24 07:47 Dose: 5 mg Documented By: DIANA Fluticasone/Vilanterol (Fluticasone/Vilanterol 200/25mcg 14 Puffs/Inhaler) 1 puffs INH DAILY [facility] Stop: 07/29/24 08:59 Last Admin: 06/29/24 07:44 Dose: 1 puffs Documented By: DIANA Acetaminophen (Ofirmev) 1,000 mg in 100 mls @ 400 mls/hr IV NOW STA Stop: 06/28/24 13:03 Last Infusion: 06/28/24 14:06 Dose: Infused Documented By: Admin: 06/28/24 13:29 Dose: 400 mls/hr Documented By: CEF Sodium Chloride (Nss) 1,000 mls @ 999 mls/hr IV .Q1H1M ONE Stop: 06/28/24 13:49 Last Infusion: 06/28/24 14:30 Dose: Infused Documented By: Admin: 06/28/24 13:25 Dose: 999 mls/hr Documented By: CEF Sodium Chloride (Nss) 1,000 mls @ 999 mls/hr IV .Q1H1M ONE Stop: 06/28/24 14:57 Last Infusion: 06/28/24 15:25 Dose: Infused Documented By: Admin: 06/28/24 14:20 Dose: 999 mls/hr Documented By: CEF Ketorolac Tromethamine (Ketorolac Tromethamine 15 Mg/Ml Vial) 10 mg IV NOW ONE Stop: 06/28/24 15:20 Last Admin: 06/28/24 15:41 Dose: 10 mg Documented By: CEF Levothyroxine Sodium (Levothyroxine Sodium 175 Mcg Tablet) 175 mcg PO DAILYBB [facility] Stop: 07/29/24 06:29 Last Admin: 06/29/24 04:02 Dose: 175 mcg Documented By: ESE Lisinopril (Lisinopril 10 Mg Tab) 10 mg PO QA [facility] Stop: 07/29/24 08:59 Last Admin: 06/29/24 07:46 Dose: 10 mg Documented By: DIANA Loratadine (Loratadine 10 Mg Tab) 10 mg PO QA [facility] Stop: 07/29/24 08:59 Last Admin: 06/29/24 07:43 Dose: 10 mg Documented By: DIANA Miscellaneous (Carbohydrates For Hypoglycemia ) 15 - 30 gm PO UD PRN PRN Reason: Hypoglycemia Protocol Stop: 07/28/24 20:01 Last Admin: 06/28/24 22:00 Dose: 15 gm Documented By: ESE Montelukast Sodium (Montelukast Sodium 10 Mg Tablet) 10 mg PO PM [facility] Stop: 07/28/24 20:59 Last Admin: 06/28/24 22:41 Dose: 10 mg Documented By: ESE Oseltamivir Phosphate (Oseltamivir Phosphate 75 Mg Cap) 75 mg PO NOW STA Stop: 06/28/24 14:14 Last Admin: 06/28/24 15:01 Dose: 75 mg Documented By: RATNA Oseltamivir Phosphate (Oseltamivir Phosphate 75 Mg Cap) 75 mg PO BID [facility] Stop: 07/04/24 08:59 Last Admin: 06/29/24 07:43 Dose: 75 mg Documented By: DIANA Pantoprazole Sodium (Pantoprazole 40 Mg Tab) 40 mg PO HS [facility] Stop: 07/28/24 20:59 Last Admin: 06/28/24 22:42 Dose: 40 mg Documented By: ESE Pravastatin Sodium (Pravastatin Sod 20 Mg Tab) 20 mg PO HS [facility] Stop: 07/28/24 20:59 Last Admin: 06/28/24 22:42 Dose: 20 mg Documented By: ESE Ziprasidone (Ziprasidone Hcl 20 Mg Cap) 40 mg PO BID [facility] Stop: 07/28/24 20:59 Last Admin: 06/29/24 07:47 Dose: 40 mg Documented By: Admin: 06/28/24 22:43 Dose: 40 mg Documented By: ESE Ziprasidone (Ziprasidone Hcl 80 Mg Cap) 80 mg PO BID [facility] Stop: 07/28/24 20:59 Last Admin: 06/29/24 07:46 Dose: 80 mg Documented By: Admin: 06/28/24 22:44 Dose: 80 mg Documented By: ESE Imaging Data Radiologist's Impression: Chest X-Ray 06/28/24 12:45 XR chest 1V portable HISTORY: 64 years-old Male cough COMPARISON: 06/12/2024 TECHNIQUE: AP view the chest FINDINGS: Cardiac silhouette is normal. Lungs appear clear. No pneumothorax or pleural effusion. Bones appear grossly intact. IMPRESSION: No acute process. ACT 112: Negative or not required by law. The above report was generated using voice recognition software. It may contain grammatical, syntax or spelling errors. Electronically signed by: Jose Erwin M.D. 06/28/2024 1:09 PM Discharge Plan Visit Data Chief Complaint: Illness Stated Complaint: COUGH, ILLNESS ED Provider: Miya Baez Discharge Problem: Dyspnea, Influenza, Dehydration, Myalgia, Hypoxia Patient Disposition: Admitted As Inpatient Discharge Instructions Interventions: ED Discharge Assessment Last Done: 06/28/24 20:02
[2024-06-28] MEDS: BENZONATATE 100 MG CAPSULE PO ONE (15:37)
[2024-06-28] MEDS: KETOROLAC TROMETHAMINE 15 MG/ML VIAL IV ONE (15:41)
--- NOTE | 2024-06-28 17:09 | History & Physical Report ---
Date of Service June 28, 2024 Assessment & Plan (1) Influenza A: (2) Acute hypoxic respiratory failure: (3) Hyponatremia: Plan Lam is a 64-year-old male with PMH of T2DM, schizophrenia, bipolar 1 disorder, first-degree AV block, HLD, HTN, hypothyroidism, and asthma. He presented via EMS on 06/28 for worsening productive cough and chills that began the day prior. Patient reports that he started to develop labored breathing at rest last night around 7 PM. #Influenza A Leukocytosis at 11.75; afebrile Influenza A (+) on arrival CXR without concomitant pneumonia Droplet isolation precautions Supportive care Tamiflu 75 mg p.o. BID Acetaminophen as needed for pain/fever Benzonatate 100 mg p.o. TID PRN # Acute hypoxic respiratory failure SpO2 88% on RA on arrival Patient is not on supplemental oxygen at baseline Titrate supplemental oxygen as needed to maintain SpO2 >94% Continuous pulse oximetry #Hyponatremia NA 131 on arrival Suspect secondary to acute infection/dehydration NSS 1000 mL IV x 2 Trend BMP #T2DM Last A1c at 5.5% on 05/22/2024 Hold metformin Diet controlled; will defer insulin T2DM diet BSG ACHS Adjust regimen as needed Chronic stable conditions: Asthmamontelukast HTNlisinopril HLDpravastatin Hypothyroidismlevothyroxine Depressionbupropion GERDfamotidine, omeprazole Schizophreniavalproic acid, and perphenazine formulary equivalent Bipolar 1Geodon Disposition: Obs - Admit to MedSur Full code T2DM diet VTE PPx: SCDs History of Present Illness Chief Complaint: Productive cough, chills Primary Care Provider: Yohannes Carrillo MD Lam is a 64-year-old male with PMH of T2DM, schizophrenia, bipolar 1 disorder, first-degree AV block, HLD, HTN, hypothyroidism, and asthma. He presented via EMS on 06/28 for worsening productive cough and chills that began the day prior. Patient reports that he started to develop labored breathing at rest last night around 7 PM. He also reports he was feeling dizzy/lightheaded whenever he stood up, and took some meclizine for his symptoms. He denies fall, head strike, or LOC. Patient took his regular morning medicine today; the only recent change in medications was that he restarted methocarbamol as needed for his back pain/scoliosis. Patient manages his own medicine at home. Additionally, patient reports he had a fever and chills last night, but did not take his temperature. Patient did receive his flu shot this fall. 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 Does not use supplemental oxygen at baseline or CPAP at night. No PMH of DVT/PE. Patient denies smoking, tobacco use, or recent alcohol use. Patient is mildly tachycardic at 101 bpm at time of admission; SpO2 93% on room air. ED course: DuoNeb 3 mL x 2 Acetaminophen 1000 mg IV NSS 1000 mL IV x 2 Tamiflu 75 mg p.o. Toradol 10 mg IV Benzonatate 100 mg p.o. ROS: Patient endorses fever, chills, dizziness, lightheadedness, chest heaviness, SOB at rest and with exertion, productive cough, and nausea. Patient denies headache, body aches, chest pain, pleuritic CP, hemoptysis, abdominal pain, vomiting, diarrhea, or changes in urinary / bowel habits. Allergies Allergy/AdvReac Type Severity Reaction Status Date / Time No Known Allergies Allergy Verified 06/22/24 11:46 Home Medications Medication Instructions Recorded Confirmed Type ziprasidone HCl 80 mg capsule 80 mg PO BID 01/26/18 06/28/24 History ziprasidone HCl 40 mg capsule 40 mg PO BID 05/27/19 06/28/24 History incontinence pad, liner, disp #180 ea 06/11/19 06/22/24 Rx blood-glucose meter (OneTouch #1 ea 07/06/19 06/22/24 Rx UltraMini kit) acetaminophen 650 mg 650 - 1,300 mg PO DIRECTED PRN 09/19/21 06/28/24 History tablet,extended release (Tylenol 8 Pain Hour) polyethylene glycol 3350 17 17 g PO BID PRN Constipation #238 06/28/23 06/28/24 Rx gram/dose oral powder grams fluticasone propionate 50 1 - 2 spray intranasal DAILY PRN 07/03/23 06/28/24 Rx mcg/actuation nasal Allergy Symptoms #16 grams spray,suspension (Allergy Relief (fluticasone)) loratadine 10 mg tablet 10 mg PO QAM #90 tabs 07/31/23 06/28/24 Rx finasteride 5 mg tablet 5 mg PO DAILY 09/10/23 06/28/24 History lisinopril 10 mg tablet 10 mg PO QAM #90 tabs 11/10/23 06/28/24 Rx famotidine 20 mg tablet 20 mg PO BID #180 tabs 11/21/23 06/28/24 Rx montelukast 10 mg tablet 10 mg PO PM #90 tabs 11/26/23 06/28/24 Rx blood sugar diagnostic (OneTouch #100 ea 02/10/24 06/22/24 Rx Ultra Test strips) lancets 33 gauge #100 ea 02/10/24 06/22/24 Rx fluticasone 250 mcg-salmeterol 50 1 inh inhalation BID #60 ea 03/17/24 06/28/24 Rx mcg/dose blistr powdr for inhalation albuterol sulfate 90 mcg/actuation 2 puff inhalation QID PRN 05/06/24 06/28/24 Rx aerosol inhaler Shortness Of Breath #18 grams perphenazine 4 mg tablet 4 - 8 mg PO UD 05/21/24 06/28/24 History levothyroxine 50 mcg tablet 175 mcg (3.5 x 50 mcg) PO QAM #135 05/27/24 06/28/24 Rx tabs meclizine 25 mg tablet 25 mg PO TID PRN dizziness #30 tabs 05/29/24 06/28/24 Rx aspirin 81 mg tablet,delayed 81 mg PO UD 06/12/24 06/28/24 History release methocarbamol 500 mg tablet 500 mg PO UD 06/12/24 06/28/24 History pravastatin 20 mg tablet 20 mg PO UD 06/12/24 06/28/24 History sildenafil (pulm.hypertension) 20 20 - 80 mg (1 - 4 x 20 mg) PO UD 06/12/24 06/28/24 Rx mg tablet PRN Prior to activity #45 tabs bupropion HCl 150 mg tablet,12 hr 150 mg PO QAM 06/15/24 06/28/24 History sustained-release buspirone 30 mg tablet 30 mg PO QAM 06/15/24 06/28/24 History clonazepam 1 mg tablet 1 mg PO BID PRN Unknown 06/15/24 06/28/24 History divalproex 500 mg tablet,extended 1,000 mg PO BID 06/15/24 06/28/24 History release 24 hr furosemide 20 mg tablet 20 mg PO DAILY PRN edema #30 tabs 06/15/24 06/28/24 Rx qutxsooz-wa-bmlno 300 mcg-K 60 1 tab PO DAILY 06/15/24 06/28/24 History mcg-lycop 600 mcg-lutein 300 mcg tablet (Centrum Silver Men) omeprazole 20 mg capsule,delayed 20 mg PO .dinner #90 caps 06/15/24 06/28/24 Rx release potassium chloride 10 mEq 10 meq PO DAILY PRN with 06/15/24 06/28/24 Rx capsule,extended release furosemide #30 caps metformin 500 mg tablet 500 mg PO BID #180 tabs 06/17/24 06/28/24 Rx Past Med/Surg History Problem List (Updated 06/28/24 @ 20:00 by Ulysses Huber) Acute hypoxic respiratory failure Influenza A Hypoxia (Acute) Myalgia (Acute) Dehydration (Acute) Influenza (Acute) Dyspnea (Acute) Hypotension Diarrhea (Acute) Fever (Acute) Diarrheal disease Acute hyponatremia (Acute) Hypomagnesemia (Acute) Weakness (Acute) Hyponatremia (Acute) Fever (Acute) Leukocytosis (Acute) Hip pain Lymphedema Hyponatremia (Acute) COVID-19 (Acute) Current use of proton pump inhibitor BPH with obstruction/lower urinary tract symptoms Erectile dysfunction Venous insufficiency (chronic) (peripheral) (Acute) Type 2 diabetes mellitus (Acute) Schizophrenia (Acute 05/20/12) Osteoarthritis of knee (Acute) Nocturia more than twice per night (Acute) Lymphedema of lower extremity (Acute) left Lumbosacral radiculopathy at L5 (Acute) 1st degree AV block History of colon polyps Osteoarthritis of right hip Schizoaffective disorder S/P total hip arthroplasty Cataract Hyperlipidemia Hypothyroidism (05/20/12) Hypertension GERD (gastroesophageal reflux disease) CKD (chronic kidney disease) Stage 2 Bipolar 1 disorder Asthma (Acute) used rescue inhaler "recently" Medical History Hypoxia Pneumonia Hx of basal cell carcinoma Encounter for pre-operative examination History of blood transfusion after left TKA Psychogenic polydipsia LOW (dyspnea on exertion) Diabetes mellitus, type 2 NIDDM BPH (benign prostatic hyperplasia) Right bundle branch block with left anterior fascicular block Bifascicular block - had ECHO 09/20/21 Follows with PCP Urinary incontinence Hearing deficit Sleep apnea NO DEVICE Schizoaffective disorder, bipolar type Surgical History History of right cataract extraction History of hip replacement [place] teeth extracted History of total knee replacement History of esophagogastroduodenoscopy (EGD) History of colonoscopy History of tonsillectomy Family History Unknown Hypertension Mother Hypertension Sister Diabetes Other No family history of adverse response to anesthesia Denies family history of Ovarian cancer Prostate cancer Myocardial infarction Breast cancer Colorectal cancer Social History Smoking Status: Never smoker Second Hand Exposure: No; Do You Dip or Chew Tobacco: No; Hx Alcohol Use: No Hx Substance Use: No Preferred Language: Romansh Communication Ability: Effective Visual Impairment: No Limitations Hearing Ability: Normal [place] Required: No Beliefs That Will Affect Care: None marital status: Single Current Living Situation: Alone Current Living Situation Comment: caregiver 35 hours/week current occupational status: unemployed How many Children do You have: 0 Other Information That Helps Us Care for You: No Feels Safe at Home: Yes Safety Concerns: Feels Safe At This Time Seatbelt Use: always Assistive Devices: Cane Assistive Devices Comment: Pt states he does not use cane at home. But has it with him at the hospital Review of Systems Review of Systems: See HPI above Physical Exam Physical Exam: General: no acute distress; non-toxic appearing; well-nourished; cooperative; SpO2 93% on RA HEENT: normocephalic, atraumatic; no scleral icterus; PERRLA; vision and hearing grossly intact Neck: supple; no lymphadenopathy; trachea midline Skin: warm, dry without signs of tenting; no cyanosis; no rashes, bruising, lesions, or erythema noted CV: chest wall NTP; RRR; S1/S2 normal; no murmurs/rubs/gallops; pulses intact and symmetric at radial, DP, and PT Lungs: no acute respiratory distress; symmetrical chest wall expansion; bibasilar crackles and expiratory wheezes noted in the lung savage bilaterally ABD: Soft, NTP; BS present; no rebound/guarding; no distention MSK: Patient's back exhibits scoliosis; no tics or fasciculations; nonpitting edema in the lower extremities bilaterally, nonerythematous Neuro: A&Ox3; normal mood and affect; fluent speech; no focal deficits; sensation intact and symmetric in the LEs b/l Results & Data Results & Data Vital Signs (Past 12 Hours) Vital Signs Temp Pulse Pulse Resp BP BP Pulse Ox 06/28/24 16:50 101 H 06/28/24 16:00 130/79 06/28/24 15:54 110 H 100 06/28/24 15:30 130/85 06/28/24 15:06 113 H 13 97 06/28/24 15:00 113/79 06/28/24 14:48 112 H 20 88 L 06/28/24 14:30 112 H 18 125/73 98 06/28/24 14:20 112 H 18 125/73 94 06/28/24 14:17 37.2 C 06/28/24 14:09 112 H 19 92 06/28/24 14:00 131/89 06/28/24 13:30 144/82 H 06/28/24 13:30 105 H 17 91 06/28/24 13:09 103 H 24 92 06/28/24 13:00 152/91 H 06/28/24 12:44 102 H 06/28/24 12:31 38.3 C H 103 H 23 158/105 H 97 O2 Del Method 06/28/24 16:50 06/28/24 16:00 06/28/24 15:54 06/28/24 15:30 06/28/24 15:06 06/28/24 15:00 06/28/24 14:48 06/28/24 14:30 06/28/24 14:20 Room Air 06/28/24 14:17 06/28/24 14:09 06/28/24 14:00 06/28/24 13:30 06/28/24 13:30 06/28/24 13:09 06/28/24 13:00 06/28/24 12:44 06/28/24 12:31 Room Air Laboratory Results Abnormal lab results 06/28/24 06/28/24 Range/Units 12:45 12:56 WBC 11.75 H (4.8-10.8) K/ul MCV 79.3 L (80.0-100.0) fL RDW Coeff of Joey 15.2 H (11.5-14.5) % MPV 9.3 L (9.4-12.4) fL Neut # (Auto) 9.95 H (1.40-6.50) K/uL Lymph # (Auto) 0.91 L (1.20-3.40) K/uL [place] # (Auto) 0.71 H (0.11-0.59) K/uL Sodium 131 L (136-145) mmol/L Chloride 95 L (98-107) mmol/L BUN/Creatinine Ratio 9.1 L (10-20) Influenza A (H3) PCR DETECTED A (NotDetected) Diagnostic Findings Chest X-Ray 06/28/24 12:45 XR chest 1V portable HISTORY: 64 years-old Male cough COMPARISON: 06/12/2024 TECHNIQUE: AP view the chest FINDINGS: Cardiac silhouette is normal. Lungs appear clear. No pneumothorax or pleural effusion. Bones appear grossly intact. IMPRESSION: No acute process. ACT 112: Negative or not required by law. The above report was generated using voice recognition software. It may contain grammatical, syntax or spelling errors. Electronically signed by: Jose Erwin M.D. 06/28/2024 1:09 PM ECG Additional Comments: ECG revealed sinus tachycardia with first-degree AV block at 101 bpm; QTc 471 Code Status & VTE Plan Code Status Full code VTE Prophylaxis Plan VTE Prophylaxis will be ordered: Yes Supervising Physician Co-Signing Physician Notes Patient seen and examined, chart reviewed, case discussed with Errol Martin PA-C and I agree with the assessment and plan as above except as otherwise noted Labs and images reviewed 64-year-old male with history of bipolar 1, schizophrenia, first-degree AV block, type II DM, asthma who presents with acute hypoxic respiratory failure due to flu A. No evidence of superimposed pneumonia. Admitted on Tamiflu and supportive care. Wean oxygen to goal 90%. No indication for ongoing antibiotics at this time, monitor for superimposed pneumonia. Agree with above. Nondistressed at bedside , lungs diminished but clear. PG Care Time/CCT Total # of Minutes Spent Total Time Spent with Patient: Total time spent is greater than 50% in coordination of care (as documented) at patient's floor/unit and/or counseling patient: [place] [address] INT INP/OBS CARE 375MIN Patient Type Established Medical Decision Making High Complexity Diagnoses Influenza A J10.1 Acute hypoxic respiratory failure J96.01 Hyponatremia E87.1
[2024-06-28] MEDS ORDERED: GLUCOSE 40% GEL 15 GM TUBE PO PRN (20:02)
[2024-06-28] MEDS ORDERED: FLUTICASONE PROPIONATE NA SPR 16 GM BTL PRN (20:02)
[2024-06-28] MEDS ORDERED: GLUCAGON FOR INJ 1 MG VIAL SQ PRN (20:02)
[2024-06-28] MEDS ORDERED: POTASSIUM CHLORIDE 10 MEQ TABCR PO PRN (20:02)
[2024-06-28] MEDS ORDERED: MECLIZINE HCL 25 MG TAB PO PRN (20:02)
[2024-06-28] MEDS ORDERED: ALBUT/IPRATROP 3MG/0.5MG NEB 3 ML VIAL NEB PRN (20:02)
[2024-06-28] MEDS ORDERED: GLUCOSE 10 TAB/TUBE PO PRN (20:02)
[2024-06-28] MEDS ORDERED: ONDANSETRON INJ 2 MG/ML 2 ML VIAL IV PRN (20:02)
[2024-06-28] MEDS ORDERED: MELATONIN 3 MG TAB PO PRN (20:02)
[2024-06-28] MEDS ORDERED: METHOCARBAMOL 500 MG TABLET PO PRN (20:02)
[2024-06-28] MEDS ORDERED: DEXTROSE 50% 50 ML SYRINGE IV PRN (20:02)
[2024-06-28] MEDS ORDERED: ACETAMINOPHEN 325 MG TAB PO PRN (20:02)
[2024-06-28] MEDS ORDERED: POLYETHYLENE (MIRALAX) 17 GM PACK PO PRN (20:02)
[2024-06-28] MEDS: CARBOHYDRATES FOR HYPOGLYCEMIA PO PRN (22:00)
[2024-06-28 22:03] VITALS: TEMP 98.1
[2024-06-28] MEDS: ASPIRIN 81 MG ECTAB PO SCH (22:41)
[2024-06-28] MEDS: MONTELUKAST SODIUM 10 MG TABLET PO SCH (22:41)
[2024-06-28] MEDS: PRAVASTATIN SOD 20 MG TAB PO SCH (22:42)
[2024-06-28] MEDS: FAMOTIDINE 20 MG TAB PO SCH (22:42)
[2024-06-28] MEDS: PANTOprazole 40 MG TAB PO SCH (22:42)
[2024-06-28] MEDS: BENZONATATE 100 MG CAPSULE PO SCH (22:42)
[2024-06-28] MEDS: DIVALPROEX EXTENDED RELEASE 500 MG TAB PO SCH (22:43)
[2024-06-28] MEDS: ziprasidone HCL 80 MG CAP PO SCH (22:44)
[2024-06-29] MEDS: LEVOTHYROXINE SODIUM 175 MCG TABLET PO SCH (04:02)
[2024-06-29 06:32] LABS: Basophils # (auto) 0.03 K/uL (0.00-0.20); Basophils % (auto) 0.4 %; Eosinophils # (auto) 0.06 K/uL (0.00-0.50); Eosinophils % (auto) 0.8 %; Hematocrit (blood only) 36.1 % (42.0-52.0); Immature Granulocytes # (auto) 0.01 K/uL (0.01-0.20); Immature Granulocytes % (auto) 0.1 %; Lymphocytes # (auto) 1.64 K/uL (1.20-3.40); Lymphocytes % (auto) 22.5 %; Mean Corpuscular Hemoglobin 26.2 pg (25.0-34.0); Mean Corpuscular Hgb Conc 33.2 g/dL (32.0-36.0); Mean Corpuscular Volume 78.8 fL (80.0-100.0); Mean Platelet Volume 9.4 fL (9.4-12.4); Monocytes # (auto) 0.88 K/uL (0.11-0.59); Monocytes % (auto) 12.1 %; Neutrophils # (auto) 4.68 K/uL (1.40-6.50); Neutrophils % (auto) 64.1 %; Platelet Count 260 K/uL (130-400); RDW Coefficient of Variation 15.5 % (11.5-14.5); Red Blood Count 4.58 M/uL (4.70-6.10)
[2024-06-29 06:38] LABS: BUN Creatinine Ratio 7.2 (10-20); Calcium 8.3 mg/dl (8.6-10.3); Creatinine Clr Calc Pharmacy 90.4 ml/min; Potassium 3.9 mmol/L (3.5-5.1)
--- NOTE | 2024-06-29 07:23 | Discharge Summary ---
Discharge Summary Date of Service June 29, 2024 Principal Dx & Hospital Course #1 = Principal Diagnosis (1) Influenza A: (2) Acute hypoxic respiratory failure: (3) Hyponatremia: Dianna Fritz is a 64-year-old male with PMH of T2DM, schizophrenia, bipolar 1 disorder, first-degree AV block, HLD, HTN, hypothyroidism, and asthma. He presented via EMS on 06/28 for worsening productive cough and chills that began the day prior. Patient reports that he started to develop labored breathing 1 day prior to presentation was admitted for hypoxia due to flu A. On further evaluation with supportive care and Tamiflu patient clinically prog ressed the following day and was weaned to room air, 100% at rest. He was ambulated by nursing staff and had good strength was ambulating independently and without desaturations. Patient felt well and was eager for discharge home. He was discharged home to complete a course of Tamiflu 75 mg twice daily with monitoring and return precautions for secondary infection. There was no signs of secondary bacterial infection at time of discharge assessment, antibiotics were not indicated. He was discharged to routine follow-up with his primary care provider. He did have mild hyponatremia which was nearly resolved the following day. To do as outpatient: 1: Completed 5-day course of Tamiflu 75 mg twice daily dosing. 2: Routine follow-up with PCP Admission HPI Per Admitting Provider Lam is a 64-year-old male with PMH of T2DM, schizophrenia, bipolar 1 disorder, first-degree AV block, HLD, HTN, hypothyroidism, and asthma. He presented via EMS on 06/28 for worsening productive cough and chills that began the day prior. Patient reports that he started to develop labored breathing at rest last night around 7 PM. He also reports he was feeling dizzy/lightheaded whenever he stood up, and took some meclizine for his symptoms. He denies fall, head strike, or LOC. Patient took his regular morning medicine today; the only recent change in medications was that he restarted methocarbamol as needed for his back pain/scoliosis. Patient manages his own medicine at home. Additionally, patient reports he had a fever and chills last night, but did not take his temperature. Patient did receive his flu shot this fall. While he is unsure if he has been around sick contacts, he does report his integrated specialist had a cough last Saturday. Does not use supplemental oxygen at baseline or CPAP at night. No PMH of DVT/PE. Patient denies smoking, tobacco use, or recent alcohol use. Patient is mildly tachycardic at 101 bpm at time of admission; SpO2 93% on room air. ED course: DuoNeb 3 mL x 2 Acetaminophen 1000 mg IV NSS 1000 mL IV x 2 Tamiflu 75 mg p.o. Toradol 10 mg IV Benzonatate 100 mg p.o. ROS: Patient endorses fever, chills, dizziness, lightheadedness, chest heaviness, SOB at rest and with exertion, productive cough, and nausea. Patient denies headache, body aches, chest pain, pleuritic CP, hemoptysis, abdominal pain, vomiting, diarrhea, or changes in urinary / bowel habits. Discharge Exam General: A&Ox3. NAD. Cooperative. HEENT: Atraumatic, normocephalic. Pulm: CTAB A&P. -wheezes, -rales, -rhonchi. Symmetrical chest rise. No increased work of breathing. No respiratory distress. Cardiac: RRR, -mrg. Radial pulses intact and symmetrical. Abdominal: Nontender, nondistended, soft. BS present. Discharge Plan Discharge Items Patient Disposition: Home - Self-Care Reason For Visit: INFLUENZA A, HYPOXIA Discharge Diagnosis: Flu A Activity: Resume your previous activity Non-emergency contact: Primary Care Provider Call non-emergency contact if: you have any medication questions, your symptoms worsen and your pain is not controlled Follow-up/Referrals: Yohannes Carrillo MD [Primary Care Provider] - 07/07/24 1:30 pm Diet: Regular Addtl Attending Provider Instructions: You were seen in the hospital for influenza A. You were hypoxic, had low oxygen levels, in the emergency department and were admitted for further care and observation. Morning of discharge your oxygen levels had returned to normal. You are doing well, felt strong, and wish for return home. You are able to walk independently with nursing staff without diminished oxygen levels or concern for your strength. You have been prescribed a antiviral medication called Tamiflu. Please take Tamiflu 75 mg by mouth twice daily for 5 days. You did not show any evidence of superimposed pneumonia or secondary infection that required antibiotics during admission. If you develop any worsening symptoms or signs of a secondary pneumonia including worsening fever, chills, difficulty breathing, shortness of breath, or worsening night sweats please seek medical attention. If you develop any new or worsening symptoms including fever, chills, sweats, chest pain, chest pressure, difficulty breathing, uncontrolled nausea/vomiting, rash, wheezing, passing out or nearly passing out, bleeding, black/bloody bowel movements, or other new or concerning symptoms please call your primary care physician, or call 911 for re-evaluation in the emergency department if you are very concerned. Pending Studies at Discharge: No Stand-Alone Forms: My [facility], Smoking Cessation Medications and DC Order Prescriptions: New oseltamivir [Tamiflu] 75 mg Capsule 75 mg PO BID 5 Days Qty: 10 0RF benzonatate 100 mg capsule 100 mg PO TID PRN (Reason: cough) Qty: 14 0RF Continued (DME) incontinence pad, liner, disp Pad See Rx Instructions .ROUTE .MEDSUPPLY Qty: 180 3RF Rx Instructions: Needs 2 dailly (DME) blood-glucose meter [OneTouch UltraMini] Kit See Rx Instructions .ROUTE .MEDSUPPLY Qty: 1 0RF Rx Instructions: use to test 4 times daily polyethylene glycol 3350 17 gram/dose powder 17 g PO BID PRN (Reason: Constipation) Qty: 238 3RF Rx Instructions: Unable to verify OTC meds at this date/time. fluticasone propionate [Allergy Relief (fluticasone)] 50 mcg/actuation spray,suspension 1 - 2 spray INTNAS DAILY PRN (Reason: Allergy Symptoms) Qty: 16 3RF Rx Instructions: administer into each nostril lisinopril 10 mg tablet 10 mg PO QAM Qty: 90 3RF famotidine 20 mg tablet 20 mg PO BID Qty: 180 3RF montelukast 10 mg tablet 10 mg PO PM Qty: 90 3RF (DME) OneTouch Ultra Test Strip See Rx Instructions .Route Qty: 100 1RF Rx Instructions: test once a day (DME) lancets 33 gauge misc See Rx Instructions .ROUTE .MEDSUPPLY Qty: 100 5RF Rx Instructions: Test once daily fluticasone propion-salmeterol 250-50 mcg/dose blister with device 1 inh inhalation BID Qty: 60 3RF Rx Instructions: GENERIC albuterol sulfate 90 mcg/actuation HFA aerosol inhaler 2 puff INHALATION QID PRN (Reason: Shortness Of Breath) Qty: 18 3RF levothyroxine 50 mcg tablet 175 mcg PO QAM Qty: 135 1RF Rx Instructions: TAKES 3 1/2 TABS. meclizine 25 mg tablet 25 mg PO TID PRN (Reason: dizziness) Qty: 30 0RF sildenafil (pulm.hypertension) 20 mg tablet 20 - 80 mg PO UD PRN (Reason: Prior to activity) Qty: 45 2RF Rx Instructions: TAKE 1-4 TABLETS BY MOUTH ONE hour prior TO activity NEEDED divalproex 500 mg tablet extended release 24 hr 1,000 mg PO BID Rx Instructions: Pt states he takes only 500 in am, 1000 HS- DC [facility] buspirone 30 mg tablet 30 mg PO QAM Rx Instructions: Per pt states he takes BID bupropion HCl 150 mg tablet sustained-release 12 hr 150 mg PO QAM Rx Instructions: states he takes BID Centrum Silver Men [id number] mcg tablet 1 tab PO DAILY omeprazole 20 mg capsule,delayed release(DR/EC) 20 mg PO .dinner Qty: 90 3RF clonazepam 1 mg tablet 1 mg PO BID PRN (Reason: Unknown) Rx Instructions: states dr cao said ok to take 2 mg hs furosemide 20 mg tablet 20 mg PO DAILY PRN (Reason: edema) Qty: 30 0RF Rx Instructions: to take with worsening edema for two days ( pt states Mon, and Tues only) potassium chloride 10 mEq capsule, extended release 10 meq PO DAILY PRN (Reason: with furosemide ) Qty: 30 0RF Rx Instructions: to take with furosemide ( pt states Mon, and Tues only) metformin 500 mg tablet 500 mg PO BID Qty: 180 3RF Hold Instructions: Resume on 06/15/24. Rx Instructions: Pt states he takes 500 in am and 1000 in evening. ziprasidone HCl 40 mg capsule 40 mg PO BID Rx Instructions: TOTAL DOSE 120 MG--TAKES WITH 80 MG CAP. ziprasidone HCl 80 mg Capsule 80 mg PO BID Rx Instructions: TOTAL DOSE 120 MG--TAKES WITH 40 MG CAP. acetaminophen [Tylenol 8 Hour] 650 mg Tablet Extended Release 650 - 1,300 mg PO DIRECTED PRN (Reason: Pain) Rx Instructions: Unable to verify OTC meds at this date/time. hernanasteride 5 mg tablet 5 mg PO DAILY Rx Instructions: TAKE 1 TABLET BY MOUTH DAILY perphenazine 4 mg tablet 4 - 8 mg PO UD Rx Instructions: Take 4mg by mouth in the morning and 8mg by mouth at bedtime methocarbamol 500 mg tablet 500 mg PO UD Rx Instructions: 500 mg po q8h. filled 05/28 30 day supply aspirin 81 mg tablet,delayed release (DR/EC) 81 mg PO UD Rx Instructions: 81 mg po qam. filled 04/20 59 day supply pravastatin 20 mg tablet 20 mg PO UD Rx Instructions: 20 mg po hs. filled 04/20 59 day supply loratadine 10 mg tablet 10 mg PO QAM Qty: 90 3RF Rx Instructions: Unable to verify OTC meds at this date/time. Discharge Orders: Discharge Order (Routine); Ordered 06/29/24 Ordered By: Lam Ruiz Admission Data Admit Date/Time: 06/28/24 17:48 Attending Provider: Lam Ruiz Admit Provider: Lam Ruiz Primary Care Provider: Yohannes Carrillo Other Providers: Lam Ruiz Other Interventions: Discharge Summary Assessment (RN) Last Done: 06/29/24 10:13 Hospital Stay Data Consultations 06/28/24 17:19 ED Decision to Admit Stat Discharge Instructions Given to Patient (Per Discharging Provider) You were seen in the hospital for influenza A. You were hypoxic, had low oxygen levels, in the emergency department and were admitted for further care and observation. Morning of discharge your oxygen levels had returned to normal. You are doing well, felt strong, and wish for return home. You are able to walk independently with nursing staff without diminished oxygen levels or concern for your strength. You have been prescribed a antiviral medication called Tamiflu. Please take Tamiflu 75 mg by mouth twice daily for 5 days. You did not show any evidence of superimposed pneumonia or secondary infection that required antibiotics during admission. If you develop any worsening symptoms or signs of a secondary pneumonia including worsening fever, chills, difficulty breathing, shortness of breath, or worsening night sweats please seek medical attention. If you develop any new or worsening symptoms including fever, chills, sweats, chest pain, chest pressure, difficulty breathing, uncontrolled nausea/vomiting, rash, wheezing, passing out or nearly passing out, bleeding, black/bloody bowel movements, or other new or concerning symptoms please call your primary care physician, or call 911 for re-evaluation in the emergency department if you are very concerned. Total Time Total Time Spent Total Time Spent (In Minutes): Time spend day of discharge 35 minutes including direct patient care, documentation, review of labs and images, and coordination of care. Coding Level of Care Code 44598 INP/OBS DISCH >30 MIN Diagnoses Influenza A J10.1 Acute hypoxic respiratory failure J96.01 Hyponatremia E87.1
[2024-06-29 07:39] VITALS: BP 102/64; RESP 18
[2024-06-29] MEDS: OSELTAMIVIR PHOSPHATE 75 MG CAP PO SCH (07:43)
[2024-06-29] MEDS: LORATADINE 10 MG TAB PO SCH (07:43)
[2024-06-29] MEDS: FLUTICASONE/VILANTEROL 200/25MCG 14 PUFFS/INHALER INH SCH (07:44)
[2024-06-29] MEDS: busPIRone 15 MG TAB PO SCH (07:45)
[2024-06-29] MEDS: lisinopril 10 MG TAB PO SCH (07:46)
[2024-06-29] MEDS: FINASTERIDE 5 MG TAB PO SCH (07:47)
[2024-06-29] MEDS: buPROPion SR 150 MG TABCR PO SCH (07:47)
[2024-06-29 08:54] VITALS: PULSE 92; O2SAT 92
--- NOTE | 2024-07-01 16:45 | Electrocardiogram Report ---
Test Reason : Blood Pressure : */* mmHG Vent. Rate : 101 BPM Atrial Rate : 101 BPM P-R Int : 226 ms QRS Dur : 150 ms QT Int : 364 ms P-R-T Axes : 63 -64 74 degrees QTcB Int : 471 ms Sinus tachycardia with 1st degree A-V block Right bundle branch block Left anterior fascicular block Bifascicular block Abnormal ECG When compared with ECG of 12-Jun-2024 09:34, Criteria for Septal infarct are no longer Present Confirmed by Cruz Castano ([id number]) on 07/01/2024 4:45:14 PM Referred By: REFERRED SELF Confirmed By: Cruz Castano
== END 2024-06-29 11:22 | disposition home or self-care (01) ==
LOC: ED 12:30 → EDINP 12:30 → 3E 20:02